=== PATIENT | female | born 1950 | race Caucasian/White ===

== ENCOUNTER → 2019-11-03 14:19 | Outpatient (CLI) | payer MEDICARE, SELFPAY ==
[2019-11-03 13:40] VITALS: BMI 27.6
[2019-11-03 15:57] LABS: T4 Free Direct 1.19 ng/dL (0.76-1.46); Thyroid Stim Hormone (TSH) 1.94 uIU/mL (0.358-3.74)
== END ==
PROVIDERS: PCP Internal Medicine; Referring Provider Nurse Practitioner Family; Visit Provider Nurse Practitioner Family
DX: E03.9 Hypothyroidism, unspecified (principal)
CPT/HCPCS: 36415; 84439; 84443

== ENCOUNTER → 2020-07-26 16:19 | Outpatient (CLI) | payer MEDICARE, SELFPAY ==
[2020-07-26 14:59] VITALS: BMI 27.4
[2020-07-26 17:03] LABS: Absolute Lymphocyte Count 1.63 X10^3/uL (0.83-4.51); Absolute Neutrophil Count 3.5 X10^3/uL (2.0-7.7); Basophil# 0.02 X10^3/uL; Basophil% 0.3 % (0-1); Eosinophils% 1.7 % (0-5); Hematocrit 43.3 % (37-47); Hemoglobin 13.5 g/dL (12.0-15.0); Lymphocyte # 1.63 X10^3/ul (4.0); Lymphocyte % 28.4 % (19-41); Mean Corp Hgb Conc 31.2 g/dL (32-36); Mean Corpuscular Hgb 27.7 pg (27.0-32.0); Mean Corpuscular Volume 88.7 fL (81-99); Mean Platelet Vol. 9.7 fl (6.2-12.0); Monocyte# 0.45 X10^3/uL; Monocyte% 7.9 % (0-10); NRBC Flagged by Analyzer 0 % (0-5); Neutrophil # 3.52 X10^3/uL (2.7-7.7); Neutrophil % 61.5 % (47-70); Platelet Count 303 K/mm3 (150-450); RBC Distribution Width CV 13.2 % (11.6-14.6); RBC Distribution Width SD 43.4 fl (35.1-43.9); Red Blood Count 4.88 M/mm3 (4.2-5.4); White Blood Count 5.7 K/mm3 (4.4-11.0)
[2020-07-26 18:13] LABS: Vitamin D,25 Hydroxy 20.4 ng/mL
[2020-07-26 18:21] LABS: AST(SGOT) 19 U/L (15-37); Alanine Aminotransfer ALT/SGPT 21 U/L (13-56); Albumin, Serum 3.9 g/dL (3.2-5.0); Alkaline Phosphatase 104 U/L (45-117); Anion Gap 6 (5-15); BUN 28 mg/dL (7-18); BUN/Creat Ratio 34.1 RATIO (10-20); Calcium,Total 9.6 mg/dL (8.5-10.1); Chloride 104 mmol/L (98-107); Creatinine, Serum 0.82 mg/dL (0.55-1.02); EST Glomerular Filtration Rate 73 mL/min (>60); Est Glom Filt Rate - Afr Amer 89 mL/min (>60); Globulin 4.1 g/dL (2.2-4.2); Glucose 84 mg/dL (74-106); Sodium Level 138 mmol/L (136-145); Thyroid Stim Hormone (TSH) 5.45 uIU/mL (0.358-3.74)
== END ==
PROVIDERS: PCP Internal Medicine; Referring Provider Internal Medicine; Visit Provider Internal Medicine
DX: E03.9 Hypothyroidism, unspecified (principal); K31.84 Gastroparesis; E55.9 Vitamin D deficiency, unspecified; Z85.060 Personal history of malignant carcinoid tumor of small intestine
CPT/HCPCS: 36415; 80053; 82306; 84439; 84443; 84481; 85025

== ENCOUNTER → 2021-01-30 08:01 | Outpatient (CLI) | payer MEDICARE, SELFPAY ==
[2021-01-30 12:41] LABS: Free T3 2.5 pg/mL (2.18-3.98); T4 Free Direct 1.29 ng/dL (0.76-1.46); Thyroid Stim Hormone (TSH) 3.32 uIU/mL (0.358-3.74)
== END ==
PROVIDERS: PCP Internal Medicine; Referring Provider Internal Medicine; Visit Provider Internal Medicine
DX: E03.9 Hypothyroidism, unspecified (principal); E55.9 Vitamin D deficiency, unspecified
CPT/HCPCS: 36415; 82306; 84439; 84443; 84481

== ENCOUNTER → 2021-12-07 | Outpatient (CLI) | payer MEDICARE, SELFPAY ==
[2021-12-07 17:06] LABS: Free T3 2.8 pg/mL (2.18-3.98); T4 Free Direct 1.37 ng/dL (0.76-1.46); Thyroid Stim Hormone (TSH) 0.53 uIU/mL (0.358-3.74)
== END | disposition home or self-care (01) ==
LOC: BIMLAB 14:54
PROVIDERS: PCP Internal Medicine; Referring Provider Internal Medicine; Visit Provider Internal Medicine
DX: E03.9 Hypothyroidism, unspecified (principal)
CPT/HCPCS: 36415; 84439; 84443; 84481

== ENCOUNTER → 2022-05-16 | Outpatient (CLI) | payer MEDICARE, SELFPAY ==
[2022-05-16 16:30] LABS: Absolute Lymphocyte Count 1.89 X10^3/uL (0.83-4.51); Basophil# 0.02 X10^3/uL; Basophil% 0.4 % (0-1); Eosinophil# 0.12 X10^3/uL; Eosinophils% 2.2 % (0-5); Hemoglobin 13.1 g/dL (12.0-15.0); Lymphocyte # 1.89 X10^3/ul (0.83-4.51); Lymphocyte % 34.7 % (19-41); Mean Corp Hgb Conc 31.2 g/dL (32-36); Mean Corpuscular Volume 89.7 fL (81-99); Monocyte# 0.43 X10^3/uL; Monocyte% 7.9 % (0-10); NRBC Flagged by Analyzer 0 % (0-5); Neutrophil # 2.97 X10^3/uL (2.7-7.7); Neutrophil % 54.6 % (47-70); Platelet Count 242 K/mm3 (150-450); RBC Distribution Width CV 12.8 % (11.6-14.6); RBC Distribution Width SD 42.2 fl (35.1-43.9); Red Blood Count 4.68 M/mm3 (4.2-5.4); White Blood Count 5.4 K/mm3 (4.4-11.0)
[2022-05-16 17:07] LABS: Vitamin D,25 Hydroxy 38.4 ng/mL
[2022-05-16 17:12] LABS: ALB/GLOB Ratio 0.9 RATIO (0.9-2.4); AST(SGOT) 14 U/L (15-37); Alanine Aminotransfer ALT/SGPT 18 U/L (13-56); Albumin, Serum 3.7 g/dL (3.2-5.0); Alkaline Phosphatase 88 U/L (45-117); Anion Gap 7 (5-15); BUN 12 mg/dL (7-18); BUN/Creat Ratio 12.3 RATIO (10-20); Calcium,Total 9.3 mg/dL (8.5-10.1); Chloride 106 mmol/L (98-107); Creatinine, Serum 0.98 mg/dL (0.55-1.02); EST Glomerular Filtration Rate 60 mL/min (>60); Est Glom Filt Rate - Afr Amer 72 mL/min (>60); Free T3 2.5 pg/mL (2.18-3.98); Globulin 3.9 g/dL (2.2-4.2); Glucose 92 mg/dL (74-106); Protein, Total 7.6 g/dL (6.4-8.2); Sodium Level 142 mmol/L (136-145); T4 Free Direct 1.51 ng/dL (0.76-1.46); Thyroid Stim Hormone (TSH) 0.96 uIU/mL (0.358-3.74)
== END | disposition home or self-care (01) ==
PROVIDERS: PCP Internal Medicine; Visit Provider Internal Medicine
DX: E55.9 Vitamin D deficiency, unspecified (principal); E03.9 Hypothyroidism, unspecified; K31.84 Gastroparesis
CPT/HCPCS: 36415; 80053; 82306; 84439; 84443; 84481; 85025

== ENCOUNTER 2022-10-31 20:22 | Emergency (ER) | payer MEDICARE, SELFPAY ==
[2022-10-31 20:23] VITALS: BP 108/85; PULSE 85; RESP 18; TEMP 36.6; O2SAT 100; BMI 23.9
--- NOTE | 2022-10-31 20:42 | EDS_ITS ---
HPI History of Present Illness Chief Complaint: Nausea/Vomiting Informant: patient and spouse/S.O. Onset/Context/Timing Onset: Today Narrative Narrative: Is with nausea and vomiting along with diarrhea. She has a history of gastroparesis and states every 10 to 20 days she will have episodes of vomiting and diarrhea. She has Phenergan and Zofran at home but those did not seem to help today. She presents with nearly 18 hours of symptoms. Patient denies significant abdominal pain. She has no fever or chills. [facility] Medical History (Updated 10/31/22 @ 22:[address] Jany Talamantes MD) Carcinoid tumor Gastroparesis Hypothyroidism polypectomy Home Medications levocetirizine 5 mg tablet 5 mg PO Q OTHER DAY 11/03/19 [History Last Taken Unknown] pantoprazole 20 mg tablet,delayed release 20 mg PO TID #90 tabs 11/13/21 [Rx Last Taken Unknown] diphenoxylate-atropine 2.5 mg-0.025 mg tablet 1 tab PO BID PRN diarrhea #20 tabs 05/16/22 [Rx Last Taken Unknown] promethazine 12.5 mg rectal suppository 12.5 mg [place] Q6H PRN nausea and vomiting #12 ea 05/16/22 [Rx Last Taken Unknown] promethazine 25 mg tablet 25 mg PO BID PRN nausea and vomiting #30 tabs 05/16/22 [Rx Last Taken Unknown] levothyroxine 88 mcg tablet 88 mcg PO DAILY #90 tabs 07/02/22 [Rx Last Taken Unknown] cephalexin 500 mg capsule 500 mg PO Q8H #30 caps 10/25/22 [Rx Last Taken Unknown] melatonin 5 mg capsule mg PO 10/25/22 [History Last Taken Unknown] prucalopride 2 mg tablet (Motegrity) 2 mg PO DAILY #90 tabs 10/25/22 [Rx Last Taken Unknown] potassium chloride 40 mEq/15 mL oral liquid 40 meq (15 mL) PO DAILY 3 days #45 mL 10/31/22 [Rx Last Taken Unknown] Allergy/AdvReac Type Severity Reaction Status Date / Time sulfamethoxazole Allergy Mild rash Verified 10/31/22 20:26 [From Bactrim] trimethoprim [From Bactrim] Allergy Mild rash Verified 10/31/22 20:26 aspirin AdvReac Mild nose bleed Verified 10/31/22 20:26 Family History Father Heart disease Myocardial infarction Mother CVA (cerebral vascular accident) Thyroid disorder Cancer Asthma Breast cancer Sister Cancer Surgical History H/O: hysterectomy Social History Smoking Status: Never smoker alcohol intake: never substance use type: does not use ROS ROS ED Constitutional Constitutional ED: Denies chills or fever(s) Eyes Eyes: Denies change in vision or discharge from eye(s) ENT ENT ED: Denies discharge from eye(s), rhinorrhea or sore throat Cardiovascular Cardiovascular: Denies chest pain or palpitations Respiratory/Chest Respiratory/Chest: Denies cough or dyspnea Gastrointestinal Gastrointestinal: Reports diarrhea, nausea and vomiting; Denies abdominal pain Genitourinary Genitourinary ED: Denies dysuria Musculoskeletal Musculoskeletal: Denies back pain or extremity pain Integumentary Denies Abrasions or rash Neurologic Neurologic: Denies headache(s) or weakness Psychiatric Psychiatric: Denies anxiety or depression Endocrine Endocrinology: Denies polydipsia or polyuria Allergic/Immunologic Allergic/Immunologic ED: Denies lip swelling or urticaria EXAM Physical Exam Const Vital Signs: 10/31/22 20:23 Temperature 97.9 F Temperature Source Temporal Pulse Rate 85 Respiratory Rate 18 Blood Pressure 108/85 H Blood Pressure Mean 92 Pulse Ox 100 Oxygen Delivery Method Room Air Positive well nourished and well developed General Appearance ED: well developed HEENT Reports normocephalic and head/scalp atraumatic Eyes PERRL and EOMs intact bilaterally Neck supple Chest Wall inspection of chest normal and palpation of chest normal Resp normal respiratory effort and clear to auscultation bilaterally Cardio regular rate and regular rhythm GI non-tender Auscultation: hypoactive bowel sounds Palpation: soft Extremity normal to inspection Neuro oriented x3 and no sensory deficits noted Sensorium / Orientation: alert Motor Exam: strength 5/5 throughout Psych mental status grossly normal Skin no rashes or lesions noted MDM MDM MDM Narrative Medical decision making narrative: Patient ordered a liter IV fluids and with IV Zofran. Labwork obtained to evaluate for leukocytosis, anemia, and electrolyte derangement. Urinalysis obtained to evaluate for infection/hematuria. History & Record Review Discussion w/independent historian: Patient and Significant other Additional record(s) reviewed:: Prior outpatient record and Prior labs Lab Data Attestation: I reviewed the patient's lab results. Labs: Laboratory Results - last 24 hr 10/31/22 21:03 WBC 8.2 RBC 5.31 Hgb 15.1 H Hct 46.0 MCV 86.6 MCH 28.4 MCHC 32.8 RDW Std Deviation 40.1 RDW Coeff of Dannie 12.8 Plt Count 254 MPV 10.3 Immature Gran % (Auto) 0.400 Neut % (Auto) 84.7 H Lymph % (Auto) 8.9 L [place] % (Auto) 5.4 Eos % (Auto) 0.2 Baso % (Auto) 0.4 Absolute Neuts (auto) 7.0 Absolute Lymphs (auto) 0.73 L Nucleated RBC % 0 Sodium 139 Potassium 2.9 L Chloride 97 L Carbon Dioxide 32.0 Anion Gap 10 BUN 23 H Creatinine 1.79 H Estim Creat Clear Calc 23.85 Est GFR (MDRD) Af Amer 36 L Est GFR (MDRD) Non-Af 30 L BUN/Creatinine Ratio 12.8 Glucose 176 H Calcium 9.8 Total Bilirubin 0.60 Direct Bilirubin 0.11 AST 17 ALT 23 Alkaline Phosphatase 77 Total Protein 8.5 H Albumin 4.2 Globulin 4.3 H Treatment and Re-Evaluation :: CBC was normal white count 8.2. Hemoglobin is concentrated at 15.1. Chemistry studies significant for low potassium at 2.9. Chloride is 97. BUN is 23 and creatinine is 1.79. Glucose is 176. LFTs are unremarkable. After 1 L of IV fluid patient is feeling improved. Her nausea is well controlled. Given her bump in creatinine she will be given a second liter of IV fluid. I will also give her oral potassium liquid for her hypokalemia. She is just provided a urine sample. This will be checked by oncoming physician. Plan will be discharged to home after second liter of IV fluid. Return instructions are given. Discharge Plan Triage Chief Complaint: Nausea/Vomiting ED Provider: Jany Talamantes Dx/Rx/DC Orders Clinical Impression: Gastroparesis, Vomiting, Dehydration, Hypokalemia Instructions: ED Dehydration (Adult), ED Hypokalemia, ED Vomiting (Adult) Prescriptions: New potassium chloride 40 mEq/15 mL liquid 40 meq PO DAILY 3 Days Qty: 45 0RF No Action levocetirizine 5 mg tablet 5 mg PO Q OTHER DAY diphenoxylate-atropine 2.5-0.025 mg tablet 1 tab PO BID PRN (Reason: diarrhea) Qty: 20 1RF Motegrity 2 mg tablet 2 mg PO DAILY Qty: 90 1RF melatonin 5 mg capsule PO cephalexin 500 mg capsule 500 mg PO Q8H Qty: 30 0RF pantoprazole 20 mg tablet,delayed release (DR/EC) 20 mg PO TID Qty: 90 11RF promethazine 25 mg tablet 25 mg PO BID PRN (Reason: nausea and vomiting) Qty: 30 1RF promethazine 12.5 mg suppository 12.5 mg WV Q6H PRN (Reason: nausea and vomiting) Qty: 12 1RF levothyroxine 88 mcg tablet 88 mcg PO DAILY Qty: 90 3RF Primary Care Provider: Edel Pinto Referrals: Edel Pinto MD [Primary Care Provider] - 1-2 Weeks Disposition Disposition: Home, Self Care
[2022-10-31] MEDS: Ondansetron 4 MG/2 ML Vial IV (21:00)
[2022-10-31] MEDS: 0.9% Normal Saline 1,000 ML 1000 ML IV (21:00)
[2022-10-31 21:22] LABS: Absolute Lymphocyte Count 0.73 X10^3/uL (0.83-4.51); Basophil# 0.03 X10^3/uL; Basophil% 0.4 % (0-1); Eosinophil# 0.02 X10^3/uL; Eosinophils% 0.2 % (0-5); Hemoglobin 15.1 g/dL (12.0-15.0); Lymphocyte # 0.73 X10^3/ul (0.83-4.51); Lymphocyte % 8.9 % (19-41); Mean Corp Hgb Conc 32.8 g/dL (32-36); Mean Corpuscular Hgb 28.4 pg (27.0-32.0); Mean Corpuscular Volume 86.6 fL (81-99); Mean Platelet Vol. 10.3 fl (6.2-12.0); Monocyte# 0.44 X10^3/uL; Monocyte% 5.4 % (0-10); NRBC Flagged by Analyzer 0 % (0-5); Neutrophil # 6.96 X10^3/uL (2.7-7.7); Neutrophil % 84.7 % (47-70); Platelet Count 254 K/mm3 (150-450); RBC Distribution Width CV 12.8 % (11.6-14.6); RBC Distribution Width SD 40.1 fl (35.1-43.9); Red Blood Count 5.31 M/mm3 (4.2-5.4); White Blood Count 8.2 K/mm3 (4.4-11.0)
[2022-10-31 21:40] LABS: AST(SGOT) 17 U/L (15-37); Alanine Aminotransfer ALT/SGPT 23 U/L (13-56); Albumin, Serum 4.2 g/dL (3.2-5.0); Alkaline Phosphatase 77 U/L (45-117); Anion Gap 10 (5-15); BUN 23 mg/dL (7-18); BUN/Creat Ratio 12.8 RATIO (10-20); Bilirubin, Direct 0.11 mg/dL (0.00-0.30); Calcium,Total 9.8 mg/dL (8.5-10.1); Chloride 97 mmol/L (98-107); Creatinine, Serum 1.79 mg/dL (0.55-1.02); EST Glomerular Filtration Rate 30 mL/min (>60); Est Glom Filt Rate - Afr Amer 36 mL/min (>60); Estimated Creatinine Clearance 23.85 ml/min; Globulin 4.3 g/dL (2.2-4.2); Glucose 176 mg/dL (74-106); Potassium 2.9 mmol/L (3.5-5.1); Protein, Total 8.5 g/dL (6.4-8.2); Sodium Level 139 mmol/L (136-145)
[2022-10-31] MEDS: Potassium Chloride Oral Soln 20 MEQ/15 ML UDC 40 MEQ PO (22:16)
[2022-10-31 22:41] LABS: Mucous, Urine 0 SEEN /hpf (<or=2+); Squamous Epithelial Cells - UA 0 SEEN /hpf (5-10)
[2022-10-31 22:43] LABS: Color, Urine Yellow (Yellow); Glucose, Dipstick 50 mg/dl (Normal); Ketone-Dipstick 5 mg/dl (Negative); Leukocyte Esterase-Dipstick 100 /ul (Negative); Nitrite-Dipstick Negative (Negative); Occult Blood-Urine 10 /ul (Negative); Protein-Dipstick 100 mg/dl (Negative); Urine Clarity Sl. Cloudy (Clear); Urine Urobilinogen 1 mg/dl (Normal)
[2022-10-31 22:44] LABS: Red Blood Cells-Urine 0-5 SEEN /hpf (0-5); Urine Bilirubin Dipstick 1 mg/dL (Negative); White Blood Cells 5-10 SEEN /hpf (0-5)
[2022-10-31 22:45] LABS: Bacteria 1+ /hpf (None Seen); Hyaline Cast 10-25 SEEN /lpf (0-5)
[2022-10-31] MEDS: 0.9% Normal Saline 1,000 ML 999 ML IV (22:56)
[2022-10-31 23:36] VITALS: RESP 16
[2022-11-01 00:53] VITALS: BP 128/74; PULSE 70; RESP 18; O2SAT 97
== END 2022-11-01 00:56 | disposition home or self-care (01) ==
PROVIDERS: Emergency Provider Emergency Medicine; PCP Internal Medicine; Visit Provider Emergency Medicine
DX: K31.84 Gastroparesis (principal); R11.2 Nausea with vomiting, unspecified; E86.0 Dehydration; E87.6 Hypokalemia; R82.81 Pyuria
CPT/HCPCS: 80048; 80076; 81001; 85025; 87086; 87088; 96361; 96374; 99283; J7030; A4216; J2405

== ENCOUNTER 2022-11-10 05:31 | Emergency (ER) | payer MEDICARE, SELFPAY ==
[2022-11-10 05:32] VITALS: BP 139/100; PULSE 94; RESP 20; TEMP 36.3; O2SAT 98; BMI 25.2
--- NOTE | 2022-11-10 05:42 | ED.VIS.GI ---
HPI HPI - GI History of Present Illness Chief Complaint: Nausea/Vomiting Informant: patient and spouse/S.O. Narrative Narrative: Patient feels like she is having another vomiting episode due to gastroparesis. She has episodes like this every couple weeks chronically. This 1 has been for 2 or 3 days, having trouble keeping any fluids down at all. She has chronic diarrhea that is no different. No blood in the emesis or the diarrhea. Vomiting up basically clear fluid nonbilious. No coffee-ground emesis. No melena. No fevers or chills. She has Phenergan suppositories at home that she has been trying to use but not helping. She feels lightheaded like she is dehydrated and having muscle cramping in her legs. [facility] Medical History (Updated 11/10/22 @ 06:[address] Ferny Jett MD) Carcinoid tumor Gastroparesis Hypothyroidism polypectomy Home Medications levocetirizine 5 mg tablet 5 mg PO Q OTHER DAY 11/03/19 [History Last Taken Unknown] pantoprazole 20 mg tablet,delayed release 20 mg PO TID #90 tabs 11/13/21 [Rx Last Taken Unknown] diphenoxylate-atropine 2.5 mg-0.025 mg tablet 1 tab PO BID PRN diarrhea #20 tabs 05/16/22 [Rx Last Taken Unknown] promethazine 12.5 mg rectal suppository 12.5 mg [place] Q6H PRN nausea and vomiting #12 ea 05/16/22 [Rx Last Taken Unknown] promethazine 25 mg tablet 25 mg PO BID PRN nausea and vomiting #30 tabs 05/16/22 [Rx Last Taken Unknown] levothyroxine 88 mcg tablet 88 mcg PO DAILY #90 tabs 07/02/22 [Rx Last Taken Unknown] cephalexin 500 mg capsule 500 mg PO Q8H #30 caps 10/25/22 [Rx Last Taken Unknown] melatonin 5 mg capsule mg PO 10/25/22 [History Last Taken Unknown] prucalopride 2 mg tablet (Motegrity) 2 mg PO DAILY #90 tabs 10/25/22 [Rx Last Taken Unknown] potassium chloride 40 mEq/15 mL oral liquid 40 meq (15 mL) PO DAILY 3 days #45 mL 10/31/22 [Rx Last Taken Unknown] metoclopramide HCl 10 mg tablet 10 mg PO Q6H PRN nausea and vomiting #20 tabs 11/10/22 [Rx Last Taken Unknown] Allergy/AdvReac Type Severity Reaction Status Date / Time Sulfa (Sulfonamide Allergy Mild Rash Verified 11/10/22 05:36 Antibiotics) sulfamethoxazole Allergy Mild rash Verified 11/10/22 05:36 [From Bactrim] trimethoprim [From Bactrim] Allergy Mild rash Verified 11/10/22 05:36 aspirin AdvReac Mild nose bleed Verified 11/10/22 05:36 Family History Father Heart disease Myocardial infarction Mother CVA (cerebral vascular accident) Thyroid disorder Cancer Asthma Breast cancer Sister Cancer Surgical History H/O: hysterectomy Social History Smoking Status: Never smoker alcohol intake: never substance use type: does not use ROS ROS ED Constitutional Constitutional ED: Denies chills or fever(s) Eyes Eyes: Denies change in vision or diplopia ENT ENT ED: Denies rhinorrhea or sore throat Cardiovascular Cardiovascular: Reports lightheadedness; Denies chest pain, palpitations or syncope Respiratory/Chest Respiratory/Chest: Denies cough or dyspnea Gastrointestinal Gastrointestinal: Reports diarrhea, nausea and vomiting; Denies abdominal pain, hematemesis, hematochezia or melena Genitourinary Genitourinary ED: Denies dysuria or hematuria Musculoskeletal Musculoskeletal: Reports other Details: leg cramping ; Denies back pain or neck pain Integumentary Denies abscess or rash Neurologic Neurologic: Denies headache(s), paresthesias or weakness Psychiatric Psychiatric: Denies anxiety or suicidal thoughts EXAM Physical Exam Const Vital Signs: 11/10/22 05:32 Temperature 97.3 F L Temperature Source Axillary Pulse Rate 94 Respiratory Rate 20 H Blood Pressure 139/100 H Blood Pressure Mean 113 Pulse Ox 98 Oxygen Delivery Method Room Air Positive well nourished and well developed General Appearance ED: well developed and NAD HEENT Reports moist mucous membranes normocephalic and atraumatic Eyes PERRL and EOMs intact bilaterally Neck full ROM and supple Resp normal respiratory effort and clear to auscultation bilaterally Cardio regular rate, regular rhythm and no murmurs Rate: Negative for tachycardic GI non-tender and non-distended GI Narrative: Limited exam due to actively vomiting Auscultation: normoactive bowel sounds Palpation: soft Back/Spine no CVA tenderness General Back: other FROM Extremity normal to inspection General Extremety ED: Negative for edema, pulses abnormal or tenderness General Extremity: Negative for edema or pulses abnormal Neuro oriented x3, CN's II-XII intact bilaterally and no sensory deficits noted Sensorium / Orientation: awake and alert Motor Exam: strength 5/5 throughout Skin no rashes or lesions noted and no wounds MDM MDM MDM Narrative Medical decision making narrative: Patient was given 2 L of IV fluids, 5 mg Reglan. She is feeling much better on reevaluation, she is admittedly states that sometimes even though she is feeling much better she will then go and start vomiting more later. I can redose her with more Reglan if she needs while she is here, but for now she is doing very well and having no abdominal symptoms. Plan is to discharge her with a prescription for Reglan to use as needed. She was using sublingual Zofran's at home and they were not helping, and she was having trouble keeping in the Phenergan suppositories due to the diarrhea. She states the diarrhea is chronic for her. I do not think she needs advanced imaging of her abdomen/pelvis right now. Creatinine is 1.73, it was a little higher than this earlier in the month, her calcium is slightly elevated, I think this is nonspecific and does not necessarily indicate a recurrence of her cancer but she should follow-up for reevaluation and may be repeat labs some point in near future. Lab Data Attestation: I reviewed the patient's lab results. Labs: Laboratory Results - last 24 hr 11/10/22 05:50 WBC 9.7 RBC 5.43 H Hgb 15.7 H Hct 47.4 H MCV 87.3 MCH 28.9 MCHC 33.1 RDW Std Deviation 40.6 RDW Coeff of Dannie 12.9 Plt Count 330 MPV 9.9 Immature Gran % (Auto) 0.400 Neut % (Auto) 81.2 H Lymph % (Auto) 10.8 L [place] % (Auto) 6.8 Eos % (Auto) 0.4 Baso % (Auto) 0.4 Absolute Neuts (auto) 7.9 H Absolute Lymphs (auto) 1.05 Nucleated RBC % 0 Sodium 139 Potassium 4.0 Chloride 101 Carbon Dioxide 26.0 Anion Gap 12 BUN 17 Creatinine 1.73 H Estim Creat Clear Calc 24.67 Est GFR (MDRD) Af Amer 37 L Est GFR (MDRD) Non-Af 31 L BUN/Creatinine Ratio 9.8 L Glucose 156 H Calcium 10.5 H Total Bilirubin 0.40 AST 20 ALT 21 Alkaline Phosphatase 91 Total Protein 9.2 H Albumin 4.6 Globulin 4.6 H Albumin/Globulin Ratio 1.0 Discharge Plan Triage Chief Complaint: Nausea/Vomiting ED Provider: Ferny Jett Dx/Rx/DC Orders Clinical Impression: Nausea vomiting and diarrhea, Gastroparesis Instructions: Gastroparesis, ED Vomiting and Diarrhea ... Prescriptions: New metoclopramide HCl [metoclopramide HCl] 10 mg tablet 10 mg PO Q6H PRN (Reason: nausea and vomiting) Qty: 20 0RF No Action levocetirizine 5 mg tablet 5 mg PO Q OTHER DAY diphenoxylate-atropine 2.5-0.025 mg tablet 1 tab PO BID PRN (Reason: diarrhea) Qty: 20 1RF Motegrity 2 mg tablet 2 mg PO DAILY Qty: 90 1RF melatonin 5 mg capsule PO cephalexin 500 mg capsule 500 mg PO Q8H Qty: 30 0RF potassium chloride 40 mEq/15 mL liquid 40 meq PO DAILY 3 Days Qty: 45 0RF pantoprazole 20 mg tablet,delayed release (DR/EC) 20 mg PO TID Qty: 90 11RF promethazine 25 mg tablet 25 mg PO BID PRN (Reason: nausea and vomiting) Qty: 30 1RF promethazine 12.5 mg suppository 12.5 mg [place] Q6H PRN (Reason: nausea and vomiting) Qty: 12 1RF levothyroxine 88 mcg tablet 88 mcg PO DAILY Qty: 90 3RF Primary Care Provider: Edel Pinto Referrals: Edel Pinto MD [Primary Care Provider] - 3-5 Days Activity Restrictions/Additional Instructions: Okay to take metoclopramide with Zofran, but do not take simultaneous with promethazine/Phenergan; basically, either Phenergan or metoclopramide/Reglan. Disposition Disposition: Home, Self Care
[2022-11-10] MEDS: 0.9% Normal Saline 1,000 ML 2000 ML IV (05:53)
[2022-11-10] MEDS: Metoclopramide 10 MG/2 ML Vial 5 MG IV (05:53)
[2022-11-10 05:55] LABS: Absolute Lymphocyte Count 1.05 X10^3/uL (0.83-4.51); Absolute Neutrophil Count 7.9 X10^3/uL (2.0-7.7); Basophil# 0.04 X10^3/uL; Basophil% 0.4 % (0-1); Eosinophil# 0.04 X10^3/uL; Eosinophils% 0.4 % (0-5); Hematocrit 47.4 % (37-47); Hemoglobin 15.7 g/dL (12.0-15.0); Lymphocyte # 1.05 X10^3/ul (0.83-4.51); Lymphocyte % 10.8 % (19-41); Mean Corp Hgb Conc 33.1 g/dL (32-36); Mean Corpuscular Hgb 28.9 pg (27.0-32.0); Mean Corpuscular Volume 87.3 fL (81-99); Mean Platelet Vol. 9.9 fl (6.2-12.0); Monocyte# 0.66 X10^3/uL; Monocyte% 6.8 % (0-10); NRBC Flagged by Analyzer 0 % (0-5); Neutrophil # 7.91 X10^3/uL (2.7-7.7); Neutrophil % 81.2 % (47-70); Platelet Count 330 K/mm3 (150-450); RBC Distribution Width CV 12.9 % (11.6-14.6); RBC Distribution Width SD 40.6 fl (35.1-43.9); Red Blood Count 5.43 M/mm3 (4.2-5.4); White Blood Count 9.7 K/mm3 (4.4-11.0)
[2022-11-10 06:20] LABS: AST(SGOT) 20 U/L (15-37); Alanine Aminotransfer ALT/SGPT 21 U/L (13-56); Albumin, Serum 4.6 g/dL (3.2-5.0); Alkaline Phosphatase 91 U/L (45-117); Anion Gap 12 (5-15); BUN 17 mg/dL (7-18); BUN/Creat Ratio 9.8 RATIO (10-20); Calcium,Total 10.5 mg/dL (8.5-10.1); Chloride 101 mmol/L (98-107); Creatinine, Serum 1.73 mg/dL (0.55-1.02); EST Glomerular Filtration Rate 31 mL/min (>60); Est Glom Filt Rate - Afr Amer 37 mL/min (>60); Estimated Creatinine Clearance 24.67 ml/min; Globulin 4.6 g/dL (2.2-4.2); Glucose 156 mg/dL (74-106); Protein, Total 9.2 g/dL (6.4-8.2); Sodium Level 139 mmol/L (136-145)
== END 2022-11-10 07:18 | disposition home or self-care (01) ==
PROVIDERS: Emergency Provider Emergency Medicine; PCP Internal Medicine; Visit Provider Emergency Medicine
DX: K31.84 Gastroparesis (principal); E03.9 Hypothyroidism, unspecified; Z79.899 Other long term (current) drug therapy
CPT/HCPCS: 80053; 85025; 96361; 96374; 99283

== ENCOUNTER → 2022-11-14 | Outpatient (CLI) | payer MEDICARE, SELFPAY ==
[2022-11-14 15:23] LABS: Absolute Neutrophil Count 3.6 X10^3/uL (2.0-7.7); Basophil# 0.03 X10^3/uL; Basophil% 0.5 % (0-1); Eosinophil# 0.09 X10^3/uL; Eosinophils% 1.6 % (0-5); Hematocrit 42.7 % (37-47); Hemoglobin 13.7 g/dL (12.0-15.0); Lymphocyte % 27.7 % (19-41); Mean Corp Hgb Conc 32.1 g/dL (32-36); Mean Corpuscular Hgb 28.9 pg (27.0-32.0); Mean Corpuscular Volume 90.1 fL (81-99); Mean Platelet Vol. 10.1 fl (6.2-12.0); Monocyte# 0.46 X10^3/uL; NRBC Flagged by Analyzer 0 % (0-5); Neutrophil # 3.58 X10^3/uL (2.7-7.7); Neutrophil % 61.9 % (47-70); Platelet Count 263 K/mm3 (150-450); RBC Distribution Width CV 12.5 % (11.6-14.6); RBC Distribution Width SD 41.5 fl (35.1-43.9); Red Blood Count 4.74 M/mm3 (4.2-5.4); White Blood Count 5.8 K/mm3 (4.4-11.0)
[2022-11-14 15:44] LABS: Vitamin B12 354 pg/mL (211-911); Vitamin D,25 Hydroxy 40.7 ng/mL
[2022-11-14 15:51] LABS: ALB/GLOB Ratio 0.9 RATIO (0.9-2.4); AST(SGOT) 16 U/L (15-37); Alanine Aminotransfer ALT/SGPT 18 U/L (13-56); Albumin, Serum 3.7 g/dL (3.2-5.0); Alkaline Phosphatase 82 U/L (45-117); Anion Gap 5 (5-15); BUN 15 mg/dL (7-18); BUN/Creat Ratio 14.2 RATIO (10-20); Calcium,Total 9.3 mg/dL (8.5-10.1); Chloride 105 mmol/L (98-107); Cholesterol 293 mg/dL (200); Creatinine, Serum 1.06 mg/dL (0.55-1.02); EST Glomerular Filtration Rate 54 mL/min (>60); Est Glom Filt Rate - Afr Amer 66 mL/min (>60); Free T3 2.4 pg/mL (2.18-3.98); Glucose 99 mg/dL (74-106); High Density Lipoprotein 60 mg/dL; Lipase 52 U/L (13-75); Potassium 4.8 mmol/L (3.5-5.1); Protein, Total 7.7 g/dL (6.4-8.2); Sodium Level 137 mmol/L (136-145); T4 Free Direct 1.39 ng/dL (0.76-1.46); Thyroid Stim Hormone (TSH) 1.04 uIU/mL (0.358-3.74); Triglycerides 135 mg/dL; Very Low Density Lipoprotein 27 mg/dL (5-40)
== END | disposition home or self-care (01) ==
LOC: LAB 14:39
PROVIDERS: PCP Internal Medicine; Referring Provider Internal Medicine; Visit Provider Internal Medicine
DX: Z13.220 Encounter for screening for lipoid disorders (principal); K31.84 Gastroparesis; E03.9 Hypothyroidism, unspecified; Z85.060 Personal history of malignant carcinoid tumor of small intestine; E55.9 Vitamin D deficiency, unspecified; E53.8 Deficiency of other specified B group vitamins; R74.8 Abnormal levels of other serum enzymes; R19.7 Diarrhea, unspecified
CPT/HCPCS: 36415; 80053; 80061; 82306; 82607; 83690; 84439; 84443; 84481; 85025

== ENCOUNTER 2022-12-18 17:20 | Emergency (ER) | payer MEDICARE, SELFPAY ==
[2022-12-18 17:21] VITALS: BP 96/68; PULSE 74; RESP 14; TEMP 36.8; O2SAT 99; BMI 24.9
--- NOTE | 2022-12-18 18:40 | EDS_ITS ---
HPI HPI - GI History of Present Illness Chief Complaint: Nausea/Vomiting/Diarrhea Narrative Narrative: 72-year-old female presenting with diarrhea. She has a history of gastroparesis. 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 She does have history of hysterectomy and diverticulitis. Patient presenting with diarrhea and abdominal pain. She was told by her GI doctor from [facility] that is soon as she gets diarrhea and abdominal pain she should come to the ER for an x-ray of her abdomen. She states he wants this to look for an obstruction. Patient has had several days of diarrhea. She does have this chronically but states that last month it was much better. She has not had fever or chills. She is vomiting. [facility] Medical History Carcinoid tumor Gastroparesis Hypothyroidism polypectomy Home Medications levocetirizine 5 mg tablet 5 mg PO Q OTHER DAY 11/03/19 [History Last Taken Unknown] diphenoxylate-atropine 2.5 mg-0.025 mg tablet 1 tab PO BID PRN diarrhea #20 tabs 05/16/22 [Rx Last Taken Unknown] promethazine 12.5 mg rectal suppository 12.5 mg [place] Q6H PRN nausea and vomiting #12 ea 05/16/22 [Rx Last Taken Unknown] promethazine 25 mg tablet 25 mg PO BID PRN nausea and vomiting #30 tabs 05/16/22 [Rx Last Taken Unknown] levothyroxine 88 mcg tablet 88 mcg PO DAILY #90 tabs 07/02/22 [Rx Last Taken Unknown] melatonin 5 mg capsule mg PO 10/25/22 [History Last Taken Unknown] prucalopride 2 mg tablet (Motegrity) 2 mg PO DAILY #90 tabs 10/25/22 [Rx Last Taken Unknown] metoclopramide HCl 10 mg tablet 10 mg PO Q6H PRN nausea and vomiting #20 tabs 11/10/22 [Rx Last Taken Unknown] pantoprazole 20 mg tablet,delayed release 20 mg PO TID #90 tabs 11/14/22 [Rx Last Taken Unknown] Allergy/AdvReac Type Severity Reaction Status Date / Time Sulfa (Sulfonamide Allergy Mild Rash Verified 12/18/22 17:21 Antibiotics) sulfamethoxazole Allergy Mild rash Verified 09/05/23 17:21 [From Bactrim] trimethoprim [From Bactrim] Allergy Mild rash Verified 12/18/22 17:21 aspirin AdvReac Mild nose bleed Verified 12/18/22 17:21 Family History Father Heart disease Myocardial infarction Mother CVA (cerebral vascular accident) Thyroid disorder Cancer Asthma Breast cancer Sister Cancer Surgical History H/O: hysterectomy Social History Smoking Status: Never smoker alcohol intake: never substance use type: does not use ROS ROS ED Constitutional Constitutional ED: Denies chills, fever(s) or sweats Eyes Eyes: Denies blurry vision or change in vision ENT ENT ED: Denies ear pain or sore throat Cardiovascular Cardiovascular: Denies chest pain, palpitations or racing heartbeat Respiratory/Chest Respiratory/Chest: Denies cough, dyspnea or sputum Gastrointestinal Gastrointestinal: Reports abdominal pain, diarrhea, nausea and vomiting; Denies constipation Genitourinary Genitourinary ED: Denies dysuria, hematuria or urinary frequency Musculoskeletal Musculoskeletal: Denies arthralgias, myalgias or neck pain Integumentary Denies abscess, Abrasions or rash Neurologic Neurologic: Denies headache(s), paresthesias or weakness Psychiatric Psychiatric: Denies anxiety, depression, suicidal ideation or suicidal thoughts Endocrine Endocrinology: Denies polydipsia or polyuria EXAM Physical Exam Const Vital Signs: 12/18/22 17:21 Temperature 98.2 F Temperature Source Temporal Pulse Rate 74 Respiratory Rate 14 Blood Pressure 96/68 Blood Pressure Mean 77 Pulse Ox 99 Oxygen Delivery Method Room Air Positive well nourished General Appearance ED: NAD; Negative for pallor HEENT Reports moist mucous membranes normocephalic and atraumatic Eyes PERRL Resp normal respiratory effort Cardio regular rate and regular rhythm GI non-tender and non-distended Neuro CN's II-XII intact bilaterally and moves all extremities Sensorium / Orientation: alert Psych mental status grossly normal Skin no wounds General Skin Exam: Negative for jaundice or pallor MDM MDM MDM Narrative Medical decision making narrative: 72-year-old female presenting with diarrhea. This is a chronic issue. She was told to come get evaluated with an x-ray should this happen. She does not have any systemic signs or symptoms such as fevers or chills. Differential includes colitis, enteritis, diverticulitis, viral syndrome. CBC was obtained to assess white blood cell count, hemoglobin, platelets. These were all normal. Creatinine is slightly elevated at 1.19 but electrolytes are normal. LFTs are normal. Lipase slightly elevated to 28. CT of the abdomen pelvis with IV contrast shows nonspecific enteritis. At this point I feel the patient stable for discharge. She states she has Reglan and Zofran at home for nausea. I recommend she hydrate well. Return precautions discussed. Impression: 1. Gastroenteritis Lab Data Labs: Laboratory Results - last 24 hr 12/18/22 19:00 WBC 8.7 RBC 5.27 Hgb 15.1 H Hct 46.4 MCV 88.0 MCH 28.7 MCHC 32.5 RDW Std Deviation 40.1 RDW Coeff of Dannie 12.5 Plt Count 299 MPV 9.6 Immature Gran % (Auto) 0.500 Neut % (Auto) 78.5 H Lymph % (Auto) 13.8 L [place] % (Auto) 5.9 Eos % (Auto) 0.8 Baso % (Auto) 0.5 Absolute Neuts (auto) 6.8 Absolute Lymphs (auto) 1.20 Nucleated RBC % 0 Sodium 137 Potassium 3.6 Chloride 102 Carbon Dioxide 25.0 Anion Gap 10 BUN 19 H Creatinine 1.19 H Estim Creat Clear Calc 35.87 Est GFR (MDRD) Af Amer 57 L Est GFR (MDRD) Non-Af 47 L BUN/Creatinine Ratio 16.0 Glucose 106 Calcium 10.4 H Total Bilirubin 0.50 AST 15 ALT 23 Alkaline Phosphatase 102 Total Protein 9.2 H Albumin 4.6 Globulin 4.6 H Albumin/Globulin Ratio 1.0 Lipase 228 H Radiography Diagnostic Testing: Clinical Impression(s) from Imaging Studies Abdomen/Pelvis CT 12/18/22 20:15 IMPRESSION: Findings consistent with enteritis and diarrheal illness. Electronically Signed: Mike Jc MD at 21:14 EDT , Discharge Plan Triage Chief Complaint: Nausea/Vomiting/Diarrhea Other Complaint: Nausea/Vomiting ED Provider: Jaswant Aly Dx/Rx/DC Orders Prescriptions: No Action levocetirizine 5 mg tablet 5 mg PO Q OTHER DAY diphenoxylate-atropine 2.5-0.025 mg tablet 1 tab PO BID PRN (Reason: diarrhea) Qty: 20 1RF Motegrity 2 mg tablet 2 mg PO DAILY Qty: 90 1RF melatonin 5 mg capsule PO pantoprazole 20 mg tablet,delayed release (DR/EC) 20 mg PO TID Qty: 90 11RF metoclopramide HCl [metoclopramide HCl] 10 mg tablet 10 mg PO Q6H PRN (Reason: nausea and vomiting) Qty: 20 0RF promethazine 25 mg tablet 25 mg PO BID PRN (Reason: nausea and vomiting) Qty: 30 1RF promethazine 12.5 mg suppository 12.5 mg [place] Q6H PRN (Reason: nausea and vomiting) Qty: 12 1RF levothyroxine 88 mcg tablet 88 mcg PO DAILY Qty: 90 3RF Primary Care Provider: Edel Pinto Referrals: Edel Pinto MD [Primary Care Provider] -
[2022-12-18] MEDS: Ondansetron 4 MG/2 ML Vial IV ×2 (18:57→22:07)
[2022-12-18] MEDS: 0.9% Normal Saline 1,000 ML 1000 ML IV (18:58)
[2022-12-18 19:12] LABS: Absolute Neutrophil Count 6.8 X10^3/uL (2.0-7.7); Basophil# 0.04 X10^3/uL; Basophil% 0.5 % (0-1); Eosinophil# 0.07 X10^3/uL; Eosinophils% 0.8 % (0-5); Hematocrit 46.4 % (37-47); Hemoglobin 15.1 g/dL (12.0-15.0); Lymphocyte % 13.8 % (19-41); Mean Corp Hgb Conc 32.5 g/dL (32-36); Mean Corpuscular Hgb 28.7 pg (27.0-32.0); Mean Platelet Vol. 9.6 fl (6.2-12.0); Monocyte# 0.51 X10^3/uL; Monocyte% 5.9 % (0-10); NRBC Flagged by Analyzer 0 % (0-5); Neutrophil # 6.84 X10^3/uL (2.7-7.7); Neutrophil % 78.5 % (47-70); Platelet Count 299 K/mm3 (150-450); RBC Distribution Width CV 12.5 % (11.6-14.6); RBC Distribution Width SD 40.1 fl (35.1-43.9); Red Blood Count 5.27 M/mm3 (4.2-5.4); White Blood Count 8.7 K/mm3 (4.4-11.0)
[2022-12-18 19:29] LABS: AST(SGOT) 15 U/L (15-37); Alanine Aminotransfer ALT/SGPT 23 U/L (13-56); Albumin, Serum 4.6 g/dL (3.2-5.0); Alkaline Phosphatase 102 U/L (45-117); Anion Gap 10 (5-15); BUN 19 mg/dL (7-18); Calcium,Total 10.4 mg/dL (8.5-10.1); Chloride 102 mmol/L (98-107); Creatinine, Serum 1.19 mg/dL (0.55-1.02); EST Glomerular Filtration Rate 47 mL/min (>60); Est Glom Filt Rate - Afr Amer 57 mL/min (>60); Estimated Creatinine Clearance 35.87 ml/min; Globulin 4.6 g/dL (2.2-4.2); Glucose 106 mg/dL (74-106); Lipase 228 U/L (13-75); Potassium 3.6 mmol/L (3.5-5.1); Protein, Total 9.2 g/dL (6.4-8.2); Sodium Level 137 mmol/L (136-145)
--- NOTE | 2022-12-18 20:15 | CT_ITS ---
INDICATION: Abdominal pain with nausea and diarrhea EXAMINATION: CT ABDOMEN AND PELVIS WITH CONTRAST - CT Abdomen And Pelvis W/ Contrast Injection TECHNIQUE: Helically acquired images were obtained of the abdomen and pelvis following IV contrast. A radiation dose optimization technique was used for this scan. IV Contrast dosage and agent: 100 cc Isovue-300 Oral contrast: None. COMPARISON: None. FINDINGS: LOWER CHEST: Lung bases are clear. No cardiomegaly or pericardial effusion. LIVER: Homogeneous. No focal mass. GALLBLADDER AND BILIARY TREE: No calcified gallstones. No gallbladder distension or wall edema. No intra- or extrahepatic biliary ductal dilation. PANCREAS: No focal cystic or solid mass. SPLEEN: Normal size without focal cystic or solid mass. ADRENAL GLANDS: No nodules. KIDNEYS AND URETERS: Normal renal size and position. No hydronephrosis. PERITONEUM: No ascites or free air. BOWEL: No evidence of acute appendicitis. Diffusely increased fluid contents of both large and small bowel with minimal small bowel distention. Fluid present in the rectum. No focal inflammatory change. LYMPH NODES: No enlarged mesenteric or retroperitoneal lymph nodes. VESSELS: Aorta is non-dilated. URINARY BLADDER: Nondistended. REPRODUCTIVE ORGANS: Uterus absent. ABDOMINAL WALL: No discrete abdominal or pelvic wall hernia. BONES: No acute or aggressive abnormality. CT/Abdomen/Pelvis W IV Cont ONLY IMPRESSION: Findings consistent with enteritis and diarrheal illness. Electronically Signed: Mike cJ MD at 21:14 EDT ,
== END 2022-12-18 22:39 | disposition home or self-care (01) ==
PROVIDERS: Emergency Provider Student in an Organized Health Care Education/Training Program; PCP Internal Medicine; Visit Provider Student in an Organized Health Care Education/Training Program
DX: K52.9 Noninfective gastroenteritis and colitis, unspecified (principal)
CPT/HCPCS: 99281; 74177; 80053; 83690; 85025; 96361; 96374; 96376; 99282; J7030; Q9967; A4216; J2405

== ENCOUNTER → 2023-08-08 | Outpatient (CLI) | payer MEDICARE, SELFPAY ==
[2023-08-08 17:03] LABS: Absolute Lymphocyte Count 1.39 X10^3/uL (0.83-4.51); Absolute Neutrophil Count 2.8 X10^3/uL (2.0-7.7); Basophil# 0.03 X10^3/uL; Basophil% 0.6 % (0-1); Eosinophil# 0.09 X10^3/uL; Eosinophils% 1.9 % (0-5); Hematocrit 39.8 % (37-47); Hemoglobin 12.8 g/dL (12.0-15.0); Lymphocyte # 1.39 X10^3/ul (0.83-4.51); Mean Corp Hgb Conc 32.2 g/dL (32-36); Mean Corpuscular Hgb 28.7 pg (27.0-32.0); Mean Corpuscular Volume 89.2 fL (81-99); Monocyte# 0.36 X10^3/uL; Monocyte% 7.8 % (0-10); NRBC Flagged by Analyzer 0 % (0-5); Neutrophil # 2.75 X10^3/uL (2.7-7.7); Neutrophil % 59.5 % (47-70); Platelet Count 243 K/mm3 (150-450); RBC Distribution Width CV 12.9 % (11.6-14.6); RBC Distribution Width SD 42.1 fl (35.1-43.9); Red Blood Count 4.46 M/mm3 (4.2-5.4); White Blood Count 4.6 K/mm3 (4.4-11.0)
[2023-08-08 18:08] LABS: AST(SGOT) 19 U/L (15-37); Alanine Aminotransfer ALT/SGPT 24 U/L (13-56); Albumin, Serum 3.8 g/dL (3.2-5.0); Alkaline Phosphatase 76 U/L (45-117); Anion Gap 7 (5-15); BUN 14 mg/dL (7-18); BUN/Creat Ratio 14.2 RATIO (10-20); Calcium,Total 9.5 mg/dL (8.5-10.1); Chloride 104 mmol/L (98-107); Cholesterol 321 mg/dL (200); Creatinine, Serum 0.98 mg/dL (0.55-1.02); EST Glomerular Filtration Rate 59 mL/min (>60); Est Glom Filt Rate - Afr Amer 71 mL/min (>60); Free T3 2.5 pg/mL (2.18-3.98); Globulin 3.8 g/dL (2.2-4.2); Glucose 98 mg/dL (74-106); High Density Lipoprotein 78 mg/dL; Potassium 4.2 mmol/L (3.5-5.1); Protein, Total 7.6 g/dL (6.4-8.2); Sodium Level 139 mmol/L (136-145); T4 Free Direct 1.36 ng/dL (0.76-1.46); Triglycerides 73 mg/dL; Very Low Density Lipoprotein 15 mg/dL (5-40)
== END | disposition home or self-care (01) ==
LOC: BIMLAB 15:25
PROVIDERS: PCP Internal Medicine; Visit Provider Internal Medicine
DX: E03.9 Hypothyroidism, unspecified (principal); E55.9 Vitamin D deficiency, unspecified; K57.92 Diverticulitis of intestine, part unspecified, without perforation or abscess without bleeding; K31.84 Gastroparesis; R74.8 Abnormal levels of other serum enzymes; Z85.060 Personal history of malignant carcinoid tumor of small intestine
CPT/HCPCS: 36415; 80053; 80061; 82306; 83735; 84439; 84443; 84481; 85025

== ENCOUNTER 2024-02-17 13:44 | Observation (INO) | payer MEDICARE, SELFPAY ==
[2024-02-17 13:45] VITALS: BP 115/84; PULSE 94; RESP 16; TEMP 36.3; O2SAT 97; BMI 26.2
--- NOTE | 2024-02-17 14:03 | EX.ED.GENINJ ---
HPI History of Present Illness Chief Complaint: Nausea/Vomiting/Diarrhea Narrative Narrative: Chief complaint and HPI: Nausea and vomiting. 74-year-old female with history of gastroparesis presents for evaluation of nausea and vomiting. 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 She states her gastroparesis has worsened in the past 5 years. Patient states that periodically her gastroparesis flares up. She states it starts with about 24 hours of diarrhea and then leads to nausea and vomiting. Patient states that usually resolves with fluids and antinausea medication. Patient states yesterday she developed diarrhea which has since resolved. She now endorses nausea and vomiting. Decreased p.o. intake. Denies any fever, chills, shortness of breath, cough, URI symptoms, chest pain, abdominal pain, dysuria, hematuria, constipation, bloody bowel movements. Patient states that this feels like her typical gastroparesis flare. Review of systems: See HPI Medications: As listed on the chart Allergies: As listed on the chart PFSH: Per chart Vital signs: As listed on the chart. Reviewed. Physical exam: Gen: A&O x3, NAD Head: Normocephalic, atraumatic Eyes: No sclera icterus, conjunctiva clear ENT: Mildly dry mucous membranes Neck: Trachea midline, No JVD CV: RRR, no murmurs, no peripheral edema Resp: Lungs CTA BL, no w/r/c GI: Abd soft, non-distended, non-tender, no r/r/g Musc: Full ROM, no deformity Skin: Warm, dry Neuro: Alert, oriented, grossly intact, sensation intact Psych: Cooperative, appropriate mood and affect [facility] Medical History Hypothyroidism polypectomy Gastroparesis Carcinoid tumor Home Medications ?Medication ?Instructions ?Recorded ?Last Taken ?Type melatonin 5 mg capsule 5 mg PO DAILY 10/25/22 02/16/24 History levothyroxine 88 mcg tablet 88 mcg PO DAILY #90 tabs 07/05/23 02/17/24 Rx prucalopride 2 mg tablet 2 mg PO DAILY #90 tabs 01/09/24 02/16/24 Rx (Motegrity) cholecalciferol (vitamin D3) 25 25 mcg PO QDAY 01/23/24 02/17/24 History mcg (1,000 unit) capsule pantoprazole 20 mg tablet,delayed 20 mg PO 4XD 02/17/24 02/17/24 History release potassium iodide 65 mg tablet 130 mg PO DAILY 02/17/24 02/16/24 History Allergy/AdvReac Type Severity Reaction Status Date / Time Sulfa (Sulfonamide Allergy Mild Rash Verified 02/17/24 13:45 Antibiotics) sulfamethoxazole (From Allergy Mild rash Verified 02/17/24 13:45 Bactrim) trimethoprim (From Bactrim) Allergy Mild rash Verified 02/17/24 13:45 aspirin AdvReac Mild nose bleed Verified 02/17/24 13:45 Family History Father Heart disease Myocardial infarction Mother CVA (cerebral vascular accident) Thyroid disorder Cancer Asthma Breast cancer Sister Cancer Surgical History H/O: hysterectomy Social History Smoking Status: Never smoker alcohol intake: never substance use type: does not use EXAM Physical Exam Const Vital Signs: 02/17/24 13:45 02/17/24 15:44 02/17/24 17:00 Temperature 97.4 F L 98.1 F Temperature Source Temporal Oral Pulse Rate 94 71 74 Respiratory Rate 16 16 16 Blood Pressure 115/84 H 152/82 H 130/78 H Blood Pressure Mean 94 105 95 Pulse Ox 97 97 98 Oxygen Delivery Method Room Air Room Air 02/17/24 17:04 Temperature 98.1 F Temperature Source Pulse Rate 74 Respiratory Rate 16 Blood Pressure 130/78 H Blood Pressure Mean 95 Pulse Ox 98 Oxygen Delivery Method MDM MDM MDM Narrative Medical decision making narrative: 74-year-old female with history of gastroparesis presents for evaluation of nausea and vomiting. Patient states that this feels like her typical gastroparesis flare. Physical exam is unremarkable except for mildly dry mucous membranes. Abdomen is benign. Differential diagnosis includes but is not limited to gastroparesis flare, viral illness, electrolyte abnormality, dehydration, ALICIA, UTI. NS bolus and Reglan ordered for symptoms. Basic labs ordered including urine. I do not think any imaging is needed at this time. CBC without leukocytosis. Patient has hemoconcentration with a hemoglobin of 17.4. This is consistent with dehydration. CMP without transaminitis however patient has mild hyponatremia of 3.3. P.o. potassium ordered. She has an ALICIA with creatinine of 2.37. Patient's creatinine in July was normal at 0.98. She has been has been as high as 1.79 in the past. Patient receiving fluids. Magnesium level unremarkable. UA positive for UTI. Patient has nitrates and leuk esterase. As well as 1+ bacteria. Rocephin ordered. Urine culture obtained. Patient's nausea and vomiting may be secondary to her gastroparesis as well as UTI. Given her ALICIA, she will warrant admission to the hospital for further IV hydration and monitoring. Patient and were updated on the results and the plan. They confirmed understanding. Patient was discussed with Dr. Ren who accepted admission. Impression: 1. ALICIA secondary to dehydration 2. UTI 3. Nausea and vomiting with history of gastroparesis 4. Mild hypokalemia Lab Data Labs: Laboratory Results - last 24 hr 02/17/24 02/17/24 14:15 16:10 WBC 8.2 RBC 6.00 H Hgb 17.4 H Hct 51.3 H MCV 85.5 MCH 29.0 MCHC 33.9 RDW Std Deviation 39.9 RDW Coeff of Dannie 12.9 Plt Count 322 MPV 9.9 Immature Gran % (Auto) 0.500 Neut % (Auto) 84.3 H Lymph % (Auto) 8.4 L [place] % (Auto) 6.1 Eos % (Auto) 0.2 Baso % (Auto) 0.5 Absolute Neuts (auto) 6.9 Absolute Lymphs (auto) 0.69 L Nucleated RBC % 0 Sodium 138 Potassium 3.3 L Chloride 94 L Carbon Dioxide 32.0 Anion Gap 12 BUN 22 H Creatinine 2.37 H Estim Creat Clear Calc 19.45 Est GFR (MDRD) Af Amer 26 L Est GFR (MDRD) Non-Af 21 L BUN/Creatinine Ratio 9.3 L Glucose 141 H Calcium 10.6 H Magnesium 2.1 Total Bilirubin 0.60 AST 13 L ALT 22 Alkaline Phosphatase 117 Total Protein 9.6 H Albumin 4.9 Globulin 4.7 H Albumin/Globulin Ratio 1.0 Urine Color Melba Urine Clarity Cloudy Urine pH 6.0 Ur Specific [place] 1.025 Urine Protein 100 H Urine Glucose (UA) Normal Urine Ketones 5 H Urine Occult Blood 10 H Urine Nitrite Positive H Urine Bilirubin 3 H Urine Urobilinogen 1 H Ur Leukocyte Esterase 100 H Urine RBC 0 SEEN Urine WBC 10-25 SEEN Ur Squamous Epith Cells 0-5 SEEN Ur Transition Epith Cell 0-5 SEEN Ur Renal Epithelial Cell 0-5 SEEN Calcium Oxalate Crystal 1+ Urine Bacteria 1+ Hyaline Casts 50-100 SEEN Fine Granular Casts 0-5 SEEN WBC Casts 0-5 SEEN Urine Mucus 3+ Discharge Plan Triage Chief Complaint: Nausea/Vomiting/Diarrhea ED Provider: Narinder Gomez Dx/Rx/DC Orders Primary Care Provider: Edel Pinto
[2024-02-17] MEDS: 0.9% Normal Saline (1000mL) 1,000 ML 1000 ML IV (14:11)
[2024-02-17] MEDS: Metoclopramide 10 MG/2 ML Vial IV (14:11)
[2024-02-17 14:23] LABS: Absolute Lymphocyte Count 0.69 X10^3/uL (0.83-4.51); Absolute Neutrophil Count 6.9 X10^3/uL (2.0-7.7); Basophil# 0.04 X10^3/uL; Basophil% 0.5 % (0-1); Eosinophil# 0.02 X10^3/uL; Eosinophils% 0.2 % (0-5); Hematocrit 51.3 % (37-47); Hemoglobin 17.4 g/dL (12.0-15.0); Lymphocyte # 0.69 X10^3/ul (0.83-4.51); Lymphocyte % 8.4 % (19-41); Mean Corp Hgb Conc 33.9 g/dL (32-36); Mean Corpuscular Volume 85.5 fL (81-99); Mean Platelet Vol. 9.9 fl (6.2-12.0); Monocyte% 6.1 % (0-10); NRBC Flagged by Analyzer 0 % (0-5); Neutrophil # 6.89 X10^3/uL (2.7-7.7); Neutrophil % 84.3 % (47-70); Platelet Count 322 K/mm3 (150-450); RBC Distribution Width CV 12.9 % (11.6-14.6); RBC Distribution Width SD 39.9 fl (35.1-43.9); White Blood Count 8.2 K/mm3 (4.4-11.0)
[2024-02-17 14:40] LABS: AST(SGOT) 13 U/L (15-37); Alanine Aminotransfer ALT/SGPT 22 U/L (13-56); Albumin, Serum 4.9 g/dL (3.2-5.0); Alkaline Phosphatase 117 U/L (45-117); Anion Gap 12 (5-15); BUN 22 mg/dL (7-18); BUN/Creat Ratio 9.3 RATIO (10-20); Calcium,Total 10.6 mg/dL (8.5-10.1); Chloride 94 mmol/L (98-107); Creatinine, Serum 2.37 mg/dL (0.55-1.02); EST Glomerular Filtration Rate 21 mL/min (>60); Est Glom Filt Rate - Afr Amer 26 mL/min (>60); Estimated Creatinine Clearance 19.45 ml/min; Globulin 4.7 g/dL (2.2-4.2); Glucose 141 mg/dL (74-106); Magnesium 2.1 mg/dL (1.6-2.6); Potassium 3.3 mmol/L (3.5-5.1); Protein, Total 9.6 g/dL (6.4-8.2); Sodium Level 138 mmol/L (136-145)
[2024-02-17 15:44] VITALS: BP 152/82; PULSE 71; RESP 16; O2SAT 97
[2024-02-17] MEDS: Potassium Chloride Oral Soln 20 MEQ/15 ML UDC 40 MEQ PO (16:02)
[2024-02-17 16:18] LABS: Red Blood Cells-Urine 0 SEEN /hpf (0-5)
[2024-02-17 16:26] LABS: Color, Urine Amber (Yellow); Glucose, Dipstick Normal (Normal); Ketone-Dipstick 5 mg/dl (Negative); Leukocyte Esterase-Dipstick 100 /ul (Negative); Nitrite-Dipstick Positive (Negative); Occult Blood-Urine 10 /ul (Negative); Protein-Dipstick 100 mg/dl (Negative); Specific Gravity, Urine 1.025 (1.002-1.030); Urine Bilirubin Dipstick 3 mg/dL (Negative); Urine Clarity Cloudy (Clear); Urine Urobilinogen 1 mg/dl (Normal)
[2024-02-17 16:46] LABS: Hyaline Cast 50-100 SEEN /lpf (0-5); White Blood Cells 10-25 SEEN /hpf (0-5)
[2024-02-17 16:47] LABS: Mucous, Urine 3+ /hpf (<or=2+); Squamous Epithelial Cells - UA 0-5 SEEN /hpf (5-10)
[2024-02-17 16:49] LABS: Fine Granular Cast- Urine 0-5 SEEN /lpf (0-5)
[2024-02-17] MEDS: Ceftriaxone 2 GM in 0.9% Normal Saline (50mL MB+) 50 ML IV (16:59)
[2024-02-17 17:00] VITALS: BP 130/78; PULSE 74; RESP 16; TEMP 36.7; O2SAT 98
[2024-02-17 17:04] VITALS: BP 130/78; PULSE 74; RESP 16; TEMP 36.7; O2SAT 98
[2024-02-17 17:06] LABS: White Cell Cast 0-5 SEEN /lpf (None Seen)
[2024-02-17 17:07] LABS: Calcium Oxalate Crystals Ur 1+ /hpf (<or=2+)
[2024-02-17 17:08] LABS: Renal Epithelial Cells 0-5 SEEN /hpf (0-5); Transitional Epithelial - Ur 0-5 SEEN /hpf (0-5)
[2024-02-17 17:10] LABS: Bacteria 1+ /hpf (None Seen)
--- NOTE | 2024-02-17 17:23 | PCM.HP.STD ---
HPI - General General Date of Admission: 02/17/24 Date of Service: 02/17/24 Chief Complaint: N/V/Diarrhea HPI Narrative TRISH MONROE, is a 74-year-old female history of hypothyroidism, GERD, gastroparesis and distant history of carcinoid tumor with resection presented to [facility] ED 02/17/24 for worsening nausea and vomiting.? Her gastroparesis is worsened over the past 5 years and she periodically has gastroparesis flares which usually start with 24 hours of diarrhea which lead to nausea and vomiting and these events usually resolve with fluids and antiemetics.? She had diarrhea yesterday which is since resolved and is now endorsing nausea and vomiting with decreased p.o. intake.? In the ED patient with ALICIA with creatinine of 2.37, patient given IV fluids and hospitalist contacted for admission. Patient evaluated at bedside. She reports that she has history of gastroparesis and has flares roughly once a week, her flares usually start with diarrhea and when she is volume depleted she has nausea and vomiting. Had an episode on Saturday that resolved but then resumed yesterday evening with diarrhea roughly every hour and this morning with nausea and vomiting every couple of hours, she said this is just like her usual gastroparesis flare since she goes to [facility] but today when she went there there was a very large line so she opted to come to our hospital instead. She reports she usually does not get admitted and just gets antiemetics and IV fluids and then goes home. She denies any fevers or chills, she has no abdominal pain, no urinary symptoms, did note some darker urine this morning but has not had any suprapubic tenderness, urinary frequency, urgency, burning. Does have history of UTIs and said her main symptom is usually lower abdominal pain which she does not have at this time. Denies any other new or acute complaints. [facility] Medical History (Updated 02/17/24 @ 17:[address] Vaishali Ren MD) Carcinoid tumor Gastroparesis Hypothyroidism polypectomy Home Medications ?Medication ?Instructions ?Recorded ?Last Taken ?Type melatonin 5 mg capsule 5 mg PO DAILY 10/25/22 02/16/24 History levothyroxine 88 mcg tablet 88 mcg PO DAILY #90 tabs 07/05/23 02/17/24 Rx prucalopride 2 mg tablet 2 mg PO DAILY #90 tabs 01/09/24 02/16/24 Rx (Motegrity) cholecalciferol (vitamin D3) 25 25 mcg PO QDAY 01/23/24 02/17/24 History mcg (1,000 unit) capsule pantoprazole 20 mg tablet,delayed 20 mg PO 4XD 02/17/24 02/17/24 History release potassium iodide 65 mg tablet 130 mg PO DAILY 02/17/24 02/16/24 History Allergy/AdvReac Type Severity Reaction Status Date / Time Sulfa (Sulfonamide Allergy Mild Rash Verified 02/17/24 13:45 Antibiotics) sulfamethoxazole (From Allergy Mild rash Verified 02/17/24 13:45 Bactrim) trimethoprim (From Bactrim) Allergy Mild rash Verified 02/17/24 13:45 aspirin AdvReac Mild nose bleed Verified 02/17/24 13:45 Family History Father Heart disease Myocardial infarction Mother CVA (cerebral vascular accident) Thyroid disorder Cancer Asthma Breast cancer Sister Cancer Surgical History H/O: hysterectomy Social History Smoking Status: Never smoker alcohol intake: never substance use type: does not use ROS ROS Narrative General: Denies fever/chills HENT: Denies headache, chronic stuffy nose, denies sore throat EYES: Denies changes in vision Resp: Denies cough, denies shortness of breath Cardiac: Denies chest pain GI: Denies abdominal pain, frequent diarrhea, nausea and vomiting : Denies changes in urination Extremity: Denies swelling MSK: Denies weakness Neuro: Denies any numbness/tingling Heme: Denies any bleeding or bruising Skin: Denies rashes Psychiatric: No complaints voiced Vital Signs Vital Signs Vital Signs: 02/17/24 13:45 02/17/24 15:44 02/17/24 17:00 Temperature 97.4 F L 98.1 F Temperature Source Temporal Oral Pulse Rate 94 71 74 Respiratory Rate 16 16 16 Blood Pressure 115/84 H 152/82 H 130/78 H Blood Pressure Mean 94 105 95 Pulse Ox 97 97 98 Oxygen Delivery Method Room Air Room Air 02/17/24 17:04 Temperature 98.1 F Temperature Source Pulse Rate 74 Respiratory Rate 16 Blood Pressure 130/78 H Blood Pressure Mean 95 Pulse Ox 98 Oxygen Delivery Method Weight Weight: 67.086 kg Body Mass Index (BMI) 26.2 Physical Exam Narrative General: Alert, oriented, no apparent distress HEENT: Atraumatic, normocephalic Eyes: Anicteric, normal conjunctiva, extraocular movements grossly intact Neck: Supple Respiratory: Clear to auscultation bilaterally, normal respiratory effort Cardiovascular: Regular rate and rhythm GI: Soft, nontender, nondistended Extremities: No edema Musculoskeletal: Moving all extremities Neuro: No overt focal neurological deficits Skin: No rashes appreciated Psych: Cooperative Results Lab / Micro Data 02/17/24 14:15 02/17/24 14:15 Labs: Laboratory Results - last 24 hr 02/17/24 14:15: WBC 8.2, RBC 6.00 H, Hgb 17.4 H, Hct 51.3 H, MCV 85.5, MCH 29.0, MCHC 33.9, RDW Std Deviation 39.9, RDW Coeff of Dannie 12.9, Plt Count 322, MPV 9.9, Immature Gran % (Auto) 0.500, Neut % (Auto) 84.3 H, Lymph % (Auto) 8.4 L, [place] % (Auto) 6.1, Eos % (Auto) 0.2, Baso % (Auto) 0.5, Absolute Neuts (auto) 6.9, Absolute Lymphs (auto) 0.69 L, Nucleated RBC % 0, Sodium 138, Potassium 3.3 L, Chloride 94 L, Carbon Dioxide 32.0, Anion Gap 12, BUN 22 H, Creatinine 2.37 H, Estim Creat Clear Calc 19.45, Est GFR (MDRD) Af Amer 26 L, Est GFR (MDRD) Non-Af 21 L, BUN/Creatinine Ratio 9.3 L, Glucose 141 H, Calcium 10.6 H, Magnesium 2.1, Total Bilirubin 0.60, AST 13 L, ALT 22, Alkaline Phosphatase 117, Total Protein 9.6 H, Albumin 4.9, Globulin 4.7 H, Albumin/Globulin Ratio 1.0 02/17/24 16:10: Urine Color Melba, Urine Clarity Cloudy, Urine pH 6.0, Ur Specific [place] 1.025, Urine Protein 100 H, Urine Glucose (UA) Normal, Urine Ketones 5 H, Urine Occult Blood 10 H, Urine Nitrite Positive H, Urine Bilirubin 3 H, Urine Urobilinogen 1 H, Ur Leukocyte Esterase 100 H, Urine RBC 0 SEEN, Urine WBC 10-25 SEEN, Ur Squamous Epith Cells 0-5 SEEN, Ur Transition Epith Cell 0-5 SEEN, Ur Renal Epithelial Cell 0-5 SEEN, Calcium Oxalate Crystal 1+, Urine Bacteria 1+, Hyaline Casts 50-100 SEEN, Fine Granular Casts 0-5 SEEN, WBC Casts 0-5 SEEN, Urine Mucus 3+ Assessment & Plan Assessment/Plan (1) Nausea & vomiting: PLAN: Plan # Intractable nausea and vomiting -Suspect secondary to gastroparesis flare given history, she reports she gets these roughly once a week and this is consistent with her previous flares. Usually however just goes to [facility] but given long wait times she presented to this hospital -IV fluids -Antiemetics -Transitional diet, the patient has difficulty tolerating this can back off to clear liquids or n.p.o. -Continue home Motegrity if patient able to bring this in -Patient usually improves with IV fluids and antiemetics and often does not require admission to the hospital or is able to be quickly discharged, may be able to DC soon as tomorrow if improving -Follow-up with Dr. Nagy with [facility] for her gastroparesis on discharge as this is who she follows with as her specialist -Will obtain stool studies to rule out infectious etiology though lower suspicion of this # ALICIA -Creatinine 2.37 and BUN 22, up from 0.98 and 14 respectively several months ago -Suspect secondary to volume depletion with her poor p.o., significant diarrhea, nausea and vomiting -IV fluids -Repeat in a.m. -If not improving w/ IVF will need further workup #Abnormal UA -Patient with nitrate and leuk esterase but only 10-25 white blood cells and patient with mucus, calcium oxalate crystals, hyaline casts. Does have 1+ bacteria but no symptoms, fever, elevated white blood cell count. Feel it is reasonable to follow urine culture and if positive will treat with antibiotics, if negative likely will not need empiric treatment -Urine culture ordered #Hypokalemia -Replace -Repeat in the AM #Hypothyroidism -Continue Synthroid #GERD -Continue PPI #DVT ppx: Heparin subcu Vaishali Ren, MD Charges/Coding Visit Charges Inpatient E&M: 24064 Init Hosp L2
[2024-02-17 18:00] VITALS: BMI 26.5
[2024-02-17 18:06] VITALS: BP 138/88; PULSE 75; RESP 18; TEMP 36.8; O2SAT 99
[2024-02-17] MEDS: 0.9% Normal Saline (1000mL) 1,000 ML 100 ML IV (18:15)
[2024-02-17] MEDS: Pantoprazole Sodium 20 MG Tablet PO ×2 (18:42→22:04)
[2024-02-17 21:42] VITALS: BP 138/85; PULSE 66; RESP 18; TEMP 36.8; O2SAT 98
[2024-02-17] MEDS: MELATONIN 10 MG TABLET 5 MG PO (22:04)
[2024-02-18 02:02] VITALS: BMI 26.5
[2024-02-18 04:17] VITALS: BP 117/81; PULSE 65; RESP 18; TEMP 36.9; O2SAT 94
[2024-02-18] MEDS: 0.9% Normal Saline (1000mL) 1,000 ML 100 ML IV (04:22)
[2024-02-18] MEDS: Levothyroxine 88 MCG Tablet PO (05:57)
[2024-02-18 07:54] LABS: Absolute Neutrophil Count 4.2 X10^3/uL (2.0-7.7); Basophil# 0.02 X10^3/uL; Basophil% 0.3 % (0-1); Eosinophil# 0.07 X10^3/uL; Eosinophils% 1.2 % (0-5); Hematocrit 38.7 % (37-47); Hemoglobin 12.9 g/dL (12.0-15.0); Lymphocyte % 19.9 % (19-41); Mean Corp Hgb Conc 33.3 g/dL (32-36); Mean Corpuscular Hgb 28.7 pg (27.0-32.0); Mean Corpuscular Volume 86.2 fL (81-99); Mean Platelet Vol. 10.4 fl (6.2-12.0); Monocyte# 0.52 X10^3/uL; Monocyte% 8.6 % (0-10); NRBC Flagged by Analyzer 0 % (0-5); Neutrophil # 4.21 X10^3/uL (2.7-7.7); Neutrophil % 69.8 % (47-70); Platelet Count 228 K/mm3 (150-450); RBC Distribution Width CV 13.1 % (11.6-14.6); RBC Distribution Width SD 40.6 fl (35.1-43.9); Red Blood Count 4.49 M/mm3 (4.2-5.4)
[2024-02-18 08:43] LABS: AST(SGOT) 12 U/L (15-37); Alanine Aminotransfer ALT/SGPT 14 U/L (13-56); Albumin, Serum 3.3 g/dL (3.2-5.0); Alkaline Phosphatase 80 U/L (45-117); Anion Gap 9 (5-15); BUN 23 mg/dL (7-18); BUN/Creat Ratio 18.3 RATIO (10-20); Calcium,Total 8.6 mg/dL (8.5-10.1); Chloride 105 mmol/L (98-107); Creatinine, Serum 1.26 mg/dL (0.55-1.02); EST Glomerular Filtration Rate 44 mL/min (>60); Est Glom Filt Rate - Afr Amer 54 mL/min (>60); Estimated Creatinine Clearance 36.81 ml/min; Globulin 3.3 g/dL (2.2-4.2); Glucose 105 mg/dL (74-106); Magnesium 1.9 mg/dL (1.6-2.6); Potassium 3.7 mmol/L (3.5-5.1); Protein, Total 6.6 g/dL (6.4-8.2); Sodium Level 138 mmol/L (136-145)
[2024-02-18 08:53] VITALS: BP 128/80; PULSE 62; RESP 16; TEMP 36.9; O2SAT 96
[2024-02-18] MEDS: Pantoprazole Sodium 20 MG Tablet PO ×2 (08:59→13:49)
[2024-02-18] MEDS: 0.9% Saline Lock 10 ML Syringe IV (13:52)
[2024-02-18 13:53] VITALS: BP 130/88; PULSE 62; RESP 16; TEMP 36.6; O2SAT 97
--- NOTE | 2024-02-18 14:26 | DCINST_ITS ---
Discharge Instructions Diet Discharge Diet: Low fat / Low cholesterol Activity Discharge Activity: Return to Normal Activity Weight Bearing Status: Weight bearing as tolerated Dressing / Incision Call your doctor if you observe: Fever of 101 or Higher, Dizziness, Chest pain and - (nausea and vomiting) Follow Up Care Test Results: Test results from this visit will be discussed in further detail at your follow- up appointment, if applicable. Discharge Plan Admission Admit Date/Time: 02/17/24 17:23 Primary Reason for Your Visit: nausea and vomiting, gastroparesis Attending Provider: Cathleen Abdalla Primary Care Provider: Edel Pinto Consulting Providers: Vaishali Ren Instructions Patient Instructions: Gastroparesis Additional Instructions / Restrictions: see PCP for repeat BMP within 2-3 days to evaluate kidney function Discharge Orders/Prescriptions Prescriptions: Continued melatonin 5 mg capsule 5 mg PO DAILY cholecalciferol (vitamin D3) 25 mcg (1,000 unit) capsule 25 mcg PO QDAY potassium iodide 65 mg tablet 130 mg PO DAILY pantoprazole 20 mg tablet,delayed release (DR/EC) 20 mg PO 4XD levothyroxine 88 mcg tablet 88 mcg PO DAILY Qty: 90 3RF Motegrity 2 mg tablet 2 mg PO DAILY Qty: 90 1RF Referrals / Follow Up: Edel Pinto MD [Primary Care Provider] - Within 1 Week Disposition Disposition (needs filled in before D/C Order can be placed): Home, Self Care
--- NOTE | 2024-02-18 14:26 | PCM.DC.SUM ---
Providers Date of Admission: 02/17/24 Date of Discharge: 02/18/24 Primary Care Physician: Dr. Edel Pinto MD Reason For Visit: ALICIA, GASTROPARESIS FLARE Diagnosis Discharge Diagnosis (1) Nausea & vomiting: Status: Acute Code(s): R11.2 - Nausea with vomiting, unspecified Medications at Discharge Home Medications melatonin 5 mg capsule 5 mg PO DAILY 10/25/22 levothyroxine 88 mcg tablet 88 mcg PO DAILY #90 tabs 07/05/23 prucalopride 2 mg tablet (Motegrity) 2 mg PO DAILY #90 tabs 01/09/24 cholecalciferol (vitamin D3) 25 mcg (1,000 unit) capsule 25 mcg PO QDAY 01/23/24 pantoprazole 20 mg tablet,delayed release 20 mg PO 4XD 02/17/24 potassium iodide 65 mg tablet 130 mg PO DAILY 02/17/24 Hospital Course Operations None Procedures None Summary of Care Provided Minutes Spent on Discharge: 55 Hospital Course: Patient is a 74 y/o femalw with a PMH as outlined including carcinoid tumor with resection and gastroparesis who was admitted via the ED on 02/17/2024 with a complaint of diarrhea as well as nausea and vomiting which had been going on for several days and not been worsening. He said the diarrhea had resolved at home before she came in but the nausea and vomiting had worsened. She did have a history of gastroparesis and says she had occasional flareups of such nausea and vomiting. On admission she was found to be in ALICIA with creatinine of 2.37. She was hydrated with IV fluids and given IV Zofran. Her symptoms improved and she felt much better. Her creatinine also trended down to 1.26. She was able to tolerate a diet and did much better. She was discharged home at her request on 02/18/2024. She was discharged on 02/18/2024 and is to follow-up with her primary care doctor within 1 week. She is however to follow with the PCP in 2 to 3 days for repeat BMP to follow-up on kidney function. She is to continue Motegrity (prucalopride) for the gastroparesis. Patient seen and examined prior to discharge. She felt much better and had no complaints. She had an uneventful night. Review of systems otherwise negative. Labs and vitals reviewed. Home medication reviewed and reconciled. Physical Exam Const alert, oriented x3 and no apparent distress General Appearance: cooperative and comfortable Orientation / Consciousness: awake Exam Limitations: no limitations HEENT normocephalic, head/scalp atraumatic, hearing grossly normal bilaterally, moist oral mucous membranes and oropharynx normal Mouth: oral and palatal mucosa normal Eyes PERRL, EOMs intact bilaterally and conjunctivae normal Neck no lymphadenopathy and supple Resp normal respiratory effort, no retractions, no use of accessory muscles and clear to auscultation bilaterally Cardio regular rate, regular rhythm, S1 normal heart sound, S2 normal heart sound and no murmurs GI normal to inspection, nondistended, normoactive bowel sounds, soft to palpation and non-tender Extremity normal to inspection, full ROM and no clubbing, cyanosis or edema Skin no rashes or lesions noted Neuro oriented x3, CN's II-XII intact bilaterally, moves all extremities and no focal motor deficits Sensorium / Orientation: awake Motor Exam: strength 5/5 throughout Psych affect normal Weight / BMI Weight Weight: 149 lb 14.629 oz Body Mass Index (BMI) 26.5 ABG / Lab / Microbiology Data 02/18/24 06:40 02/18/24 06:40 Laboratory: Laboratory Results - last 24 hr 02/17/24 14:15: Sodium 138, Potassium 3.3 L, Chloride 94 L, Carbon Dioxide 32.0, Anion Gap 12, BUN 22 H, Creatinine 2.37 H, Estim Creat Clear Calc 19.45, Est GFR (MDRD) Af Amer 26 L, Est GFR (MDRD) Non-Af 21 L, BUN/Creatinine Ratio 9.3 L, Glucose 141 H, Calcium 10.6 H, Magnesium 2.1, Total Bilirubin 0.60, AST 13 L, ALT 22, Alkaline Phosphatase 117, Total Protein 9.6 H, Albumin 4.9, Globulin 4.7 H, Albumin/Globulin Ratio 1.0 02/17/24 16:10: Urine Color Melba, Urine Clarity Cloudy, Urine pH 6.0, Ur Specific [place] 1.025, Urine Protein 100 H, Urine Glucose (UA) Normal, Urine Ketones 5 H, Urine Occult Blood 10 H, Urine Nitrite Positive H, Urine Bilirubin 3 H, Urine Urobilinogen 1 H, Ur Leukocyte Esterase 100 H, Urine RBC 0 SEEN, Urine WBC 10-25 SEEN, Ur Squamous Epith Cells 0-5 SEEN, Ur Transition Epith Cell 0-5 SEEN, Ur Renal Epithelial Cell 0-5 SEEN, Calcium Oxalate Crystal 1+, Urine Bacteria 1+, Hyaline Casts 50-100 SEEN, Fine Granular Casts 0-5 SEEN, WBC Casts 0-5 SEEN, Urine Mucus 3+ 02/18/24 06:40: WBC 6.0, RBC 4.49, Hgb 12.9, Hct 38.7, MCV 86.2, MCH 28.7, MCHC 33.3, RDW Std Deviation 40.6, RDW Coeff of Dannie 13.1, Plt Count 228, MPV 10.4, Immature Gran % (Auto) 0.200, Neut % (Auto) 69.8, Lymph % (Auto) 19.9, [place] % (Auto) 8.6, Eos % (Auto) 1.2, Baso % (Auto) 0.3, Absolute Neuts (auto) 4.2, Absolute Lymphs (auto) 1.20, Nucleated RBC % 0, Sodium 138, Potassium 3.7, Chloride 105, Carbon Dioxide 24.0, Anion Gap 9, BUN 23 H, Creatinine 1.26 H, Estim Creat Clear Calc 36.81, Est GFR (MDRD) Af Amer 54 L, Est GFR (MDRD) Non-Af 44 L, BUN/Creatinine Ratio 18.3, Glucose 105, Calcium 8.6, Magnesium 1.9, Total Bilirubin 0.50, AST 12 L, ALT 14, Alkaline Phosphatase 80, Total Protein 6.6, Albumin 3.3, Globulin 3.3, Albumin/Globulin Ratio 1.0, TSH 1.040 Microbiology: Microbiology 02/18/24 10:50 Stool Enteric Bacteriology - Final 02/17/24 16:10 Urine, Clean Catch Urine Culture - Preliminary Culture exhibits no growth. D/C Instructions Discharge Diet: Low fat / Low cholesterol Discharge Activity: Return to Normal Activity Weight Bearing Status: Weight bearing as tolerated Call your doctor if you observe: Fever of 101 or Higher, Dizziness, Chest pain and - (nausea and vomiting) Meaningful Use Info Meaningful Use Meaningful Use Diagnoses (Choose all that apply): None applicable Ischemic Stroke Statin Dosing Therapy Reference: STATIN DOSE THERAPY REFERENCE: * Patients > 75 years receive moderate or high dose statin therapy. * Patients 75 years or YOUNGER should receive HIGH intensity statin dose unless contraindicated. You will be required to document reason for non-treatment if statin daily dose does not meet guidelines. HIGH DOSE STATIN THERAPY DAILY Atorvastatin > than or = to 40 mg Rosuvastatin > than or = to 20 mg Amlodipine + Atorvastatin > than or = to 2.5/40 mg Ezetimibe + Simvastatin 10/80 mg Simvastatin 80mg Discharge Plan Admission Admit Date/Time: 02/17/24 17:23 Primary Reason for Your Visit: nausea and vomiting, gastroparesis Attending Provider: Cathleen Abdalla Primary Care Provider: Edel Pinto Consulting Providers: Vaishali Ren Instructions Patient Instructions: Gastroparesis Additional Instructions / Restrictions: see PCP for repeat BMP within 2-3 days to evaluate kidney function Discharge Orders/Prescriptions Prescriptions: Continued melatonin 5 mg capsule 5 mg PO DAILY cholecalciferol (vitamin D3) 25 mcg (1,000 unit) capsule 25 mcg PO QDAY potassium iodide 65 mg tablet 130 mg PO DAILY pantoprazole 20 mg tablet,delayed release (DR/EC) 20 mg PO 4XD levothyroxine 88 mcg tablet 88 mcg PO DAILY Qty: 90 3RF Motegrity 2 mg tablet 2 mg PO DAILY Qty: 90 1RF Referrals / Follow Up: Edel Pinto MD [Primary Care Provider] - Within 1 Week Disposition Disposition (needs filled in before D/C Order can be placed): Home, Self Care Charges/Coding Visit Charges Inpatient E&M: 18057 Disch Hosp >30min
--- NOTE | 2024-02-18 14:35 | CASEMGMT ---
LILLIE CM into pt room, pt sitting up in bed in no distress. Pt states she is I in ADLs and denies concerns at home. Pt up indep and ambulates without a device. She denies any homegoing needs at this time.
--- NOTE | 2024-02-18 15:06 | PHA.DC.MR.R ---
Pharmacy [place] Med Reconciliation Pharmacy Service has performed discharge medication reconciliation for this patient. The patient's discharge medication list was reviewed for discrepancies and discrepancies were resolved. Medications at Discharge Home Medications melatonin 5 mg capsule 5 mg PO DAILY 10/25/22 levothyroxine 88 mcg tablet 88 mcg PO DAILY #90 tabs 07/05/23 prucalopride 2 mg tablet (Motegrity) 2 mg PO DAILY #90 tabs 01/09/24 cholecalciferol (vitamin D3) 25 mcg (1,000 unit) capsule 25 mcg PO QDAY 01/23/24 pantoprazole 20 mg tablet,delayed release 20 mg PO 4XD 02/17/24 potassium iodide 65 mg tablet 130 mg PO DAILY 02/17/24
== END 2024-02-18 15:59 | disposition home or self-care (01) ==
LOC: ED 17:14 → MS3 17:28
PROVIDERS: Admitting Provider Internal Medicine; Emergency Provider Surgery; PCP Internal Medicine; Visit Provider Student in an Organized Health Care Education/Training Program
DX: R07.89 Other chest pain (principal); N17.9 Acute kidney failure, unspecified; E87.6 Hypokalemia; K31.84 Gastroparesis; E86.0 Dehydration; I10 Essential (primary) hypertension; E78.5 Hyperlipidemia, unspecified; Z79.899 Other long term (current) drug therapy
CPT/HCPCS: 36415; 80053; 81001; 83735; 84443; 85025; 87086; 87088; 87506; 96361; 96365; 96375; 99221; 99284; J7030; A4216; G0378; J0696

== ENCOUNTER 2024-02-19 17:35 | Emergency (ER) | payer MEDICARE, SELFPAY ==
[2024-02-19 17:35] VITALS: BP 146/98; PULSE 71; RESP 16; TEMP 36.6; O2SAT 99; BMI 27.3
[2024-02-19 18:04] LABS: Absolute Lymphocyte Count 1.98 X10^3/uL (0.83-4.51); Absolute Neutrophil Count 4.2 X10^3/uL (2.0-7.7); Basophil# 0.04 X10^3/uL; Basophil% 0.6 % (0-1); Eosinophil# 0.13 X10^3/uL; Eosinophils% 1.9 % (0-5); Hematocrit 43.9 % (37-47); Hemoglobin 14.7 g/dL (12.0-15.0); Lymphocyte # 1.98 X10^3/ul (0.83-4.51); Lymphocyte % 28.5 % (19-41); Mean Corp Hgb Conc 33.5 g/dL (32-36); Mean Corpuscular Volume 86.6 fL (81-99); Mean Platelet Vol. 9.9 fl (6.2-12.0); Monocyte# 0.55 X10^3/uL; Monocyte% 7.9 % (0-10); NRBC Flagged by Analyzer 0 % (0-5); Neutrophil # 4.23 X10^3/uL (2.7-7.7); Platelet Count 249 K/mm3 (150-450); RBC Distribution Width CV 12.8 % (11.6-14.6); RBC Distribution Width SD 40.1 fl (35.1-43.9); Red Blood Count 5.07 M/mm3 (4.2-5.4); White Blood Count 6.9 K/mm3 (4.4-11.0)
[2024-02-19 18:19] LABS: ALB/GLOB Ratio 1.2 RATIO (0.9-2.4); AST(SGOT) 16 U/L (15-37); Alanine Aminotransfer ALT/SGPT 20 U/L (13-56); Albumin, Serum 4.4 g/dL (3.2-5.0); Alkaline Phosphatase 97 U/L (45-117); Anion Gap 7 (5-15); BUN 13 mg/dL (7-18); BUN/Creat Ratio 12.7 RATIO (10-20); Calcium,Total 9.7 mg/dL (8.5-10.1); Chloride 108 mmol/L (98-107); Creatinine, Serum 1.02 mg/dL (0.55-1.02); EST Glomerular Filtration Rate 56 mL/min (>60); Est Glom Filt Rate - Afr Amer 68 mL/min (>60); Globulin 3.8 g/dL (2.2-4.2); Glucose 96 mg/dL (74-106); Potassium 3.8 mmol/L (3.5-5.1); Protein, Total 8.2 g/dL (6.4-8.2); Sodium Level 137 mmol/L (136-145)
[2024-02-19 21:35] VITALS: BP 151/79; PULSE 87; RESP 20; O2SAT 96
[2024-02-19] MEDS: Metoclopramide 10 MG/2 ML Vial IV (22:18)
[2024-02-19] MEDS: Morphine 4 MG/ML Syringe IV (22:18)
[2024-02-19] MEDS: 0.9% Normal Saline (1000mL) 1,000 ML 1000 ML IV (22:18)
[2024-02-19 23:00] VITALS: BP 148/87; PULSE 72; RESP 20; O2SAT 97
[2024-02-19 23:55] LABS: Bacteria 0 SEEN /hpf (None Seen); Color, Urine Straw (Yellow); Glucose, Dipstick Normal (Normal); Ketone-Dipstick 15 mg/dl (Negative); Leukocyte Esterase-Dipstick 25 /ul (Negative); Nitrite-Dipstick Negative (Negative); Occult Blood-Urine Negative /ul (Negative); Protein-Dipstick 30 mg/dl (Negative); Red Blood Cells-Urine 0 SEEN /hpf (0-5); Specific Gravity, Urine 1.025 (1.002-1.030); Urine Bilirubin Dipstick Negative (Negative); Urine Clarity Clear (Clear); Urine Urobilinogen Normal (Normal)
[2024-02-20 00:13] LABS: Fine Granular Cast- Urine 0-5 SEEN /lpf (0-5); Hyaline Cast 5-10 SEEN /lpf (0-5); Mucous, Urine 4+ /hpf (<or=2+); Squamous Epithelial Cells - UA 5-10 SEEN /hpf (5-10); White Blood Cells 0-5 SEEN /hpf (0-5)
[2024-02-20 00:52] VITALS: BP 141/82; PULSE 69; RESP 17; TEMP 36.2; O2SAT 99
== END 2024-02-20 00:52 | disposition home or self-care (01) ==
PROVIDERS: Emergency Provider Emergency Medicine; PCP Internal Medicine; Visit Provider Emergency Medicine
DX: R10.9 Unspecified abdominal pain (principal); K31.84 Gastroparesis
CPT/HCPCS: 80053; 81001; 85025; 96361; 96374; 96375; 96376; 99282; J7030; A4216

== ENCOUNTER 2025-03-02 08:25 | Outpatient (CLI) | payer MEDICARE, SELFPAY ==
--- NOTE | 2025-03-02 09:00 | PET_ITS ---
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 Nausea and vomiting. Abdominal pain. Diarrhea. TECHNIQUE: Procedure Code: PETPTCTINIT Modality: PT Procedure: PET/CT TUMOR BASE -THIGH INIT Following the intravenous administration of radionucleotide, image acquisition on a dedicated PET/CT unit was performed at one hour post injection. A preliminary CT study encompassing the Head, neck, chest, abdomen, pelvis, and proximal thighs was performed for purposes of attenuation correction and anatomic localization. The proximal thighs were also included. RADIOPHARMACEUTICAL: 3.4 mCi gallium 68 Dotatate) IV was injected into he patient. RADIATION DOSE SUMMARY: Effective Dose: Approximately 7 mSv for a standard whole-body PET scan Organ Doses: Varies by organ, with higher doses typically to the bladder, liver, and brain COMPARISON: COMPARISON FROM CT, PET OR OTHER PERTINENT EXAMS: None provided.. FINDINGS: Physiologic activity in the spleen, liver, adrenal glands, pituitary gland, kidneys, and urine noted. Milder parotid, submandibular gland,, thyroid uptake is also physiologic. Physiologic bowel uptake is also seen. Head and NECK: No abnormal uptake noted. CHEST: Chest wall- There are no significant chest wall abnormalities. Axilla- 2 subcentimeter right axillary lymph node show abnormal uptake, concerning for the presence of disease. No CT abnormal correlate is noted. Lung parenchyma- There are no significant lung parenchyma abnormalities. Mediastinum- There are no significant hilar or mediastinal adenopathy. Pleura- There are no significant pleural abnormalities. Right upper extremity: In the superficial soft tissues of the distal right arm, a small focus of uptake is seen, without apparent CT correlate; cannot exclude the presence of disease. ABDOMEN: Mild aortic calcification; no evidence of abdominal aortic aneurysm. Mild asymmetric focal uptake at the left adrenal gland is seen, of uncertain significance; no CT correlate is evident. Stomach- No significant abnormalities. Liver- No significant abnormalities. Spleen- No significant abnormalities. Pancrease- No significant abnormalities. Kidneys- No significant abnormalities. Bowel- Normal bowel activity. Spine- No significant abnormalities. PELVIS: Mild sigmoid diverticulosis. Bowel- Normal physiologic bowel activity is identified. Masses- There are no pelvic masses. Bones- Degenerative changes of the spine are most prominent in the lower lumbar and cervical spine. No subluxation is seen. With the use of bone window settings, there are no osteolytic or osteoblastic lesions. There are no FDG avid lesions within the visualized portion of the axial skeleton. PET/PET/CT Tumor Base -Thigh Init IMPRESSION: FDG avid- 1. Two subcentimeter right axillary lymph nodes show radionuclide uptake, new[place] rning for possible foci of disease. 2. In the superficial soft tissues of the distal right arm, a small focus of up take is seen, without apparent CT correlate; cannot exclude the presence of disease at this site, as well, particularly give n the right axillary aforementioned lymph nodes on the contralateral side. 3. Mild asymmetric focal uptake at the left adrenal gland is seen, of uncertain significance; no CT correlate is evident. Other: Mild sigmoid diverticulosis. Degenerative changes of the spine. Please note the low-dose CT scan was performed to facilitate PET image reconstr uction and anatomic localization and does not replace a diagnostic CT. Any diagnostic CT requested and performed at the time of the PET will be reported separately. Reading Location: [place] [id number]
== END 2025-03-02 23:59 | disposition home or self-care (01) ==
PROVIDERS: PCP Internal Medicine; Referring Provider Internal Medicine; Visit Provider Internal Medicine
DX: D3A.00 Benign carcinoid tumor of unspecified site (principal); Z85.060 Personal history of malignant carcinoid tumor of small intestine; R11.2 Nausea with vomiting, unspecified; R10.9 Unspecified abdominal pain; R19.7 Diarrhea, unspecified; E86.0 Dehydration
CPT/HCPCS: 78815; A9587

== ENCOUNTER → 2025-03-04 | Outpatient (CLI) | payer MEDICARE, SELFPAY | END | disposition home or self-care (01) | LOC: LAB 09:47 | PROVIDERS: PCP Internal Medicine; Referring Provider Internal Medicine; Visit Provider Internal Medicine | DX: Z00.00 Encounter for general adult medical examination without abnormal findings (principal) ==

== ENCOUNTER 2025-03-09 07:29 | Outpatient (CLI) | payer MEDICARE, SELFPAY ==
--- OUTSIDE RECORDS SUMMARY | 2025-03-09 07:36 | XMS RPT_ITS | CCD ---
Author Organization [facility] Care Team Providers Care Lab Aid Name Role Phone Dr. Cheikh Pinto Primary Care Provider Dr. Cheikh Pinto Attending Provider [phone] Cheikh Pinto MD Primary Care Provider [phone] Dr. Cheikh Pinto Primary Care Provider Dr. Cheikh Pinto Attending Provider Dr. Cheikh Pinto Primary Care Provider Dr. Cheikh Pinto Attending Provider Cheikh Pinto MD Primary Care Provider [phone] MATT KAT Attending Unavailable CHEIKH PINTO Primary Care Unavailable BINA OVERTON Referring Unavailable Dr. Cheikh Pinto MD Primary Care Provider [phone] Dr. Cheikh Pinto MD Attending Provider THERESA MATTHEWS Attending Unavailable THERESA MATTHEWS Admitting Unavailable SHYANNE SANCHEZ Consulting Unavailable ESTEBAN FINLEY Referring Unavailable CHEIKH PINTO Primary Care Unavailable Lázaro Bermeo Attending Unavailable Cheikh Pinto Primary Care Unavailable Cheikh Pinto Attending Unavailable Cheikh Pinto Primary Care Unavailable Cheikh Pinto Attending Unavailable Cheikh Pinto Primary Care Unavailable Vaishali Ren Consulting Unavailable Cheikh Pinto Primary Care Unavailable Vaishali Ren Admitting Unavailable Rm, Cathleen Humera Attending Unavailable Rm, Cathleen Humera Consulting Unavailable Vaishali Ren Attending Unavailable Cheikh Pinto Attending Unavailable Judi, Cheikh Primary Care Unavailable Judi, Cheikh Attending Unavailable Judi, Cheikh Primary Care Unavailable Vaishali Ren Consulting Unavailable Vaishali Ren Admitting Unavailable RmCathleen Humera Attending Unavailable Judi, Cheikh Primary Care Unavailable Judi, Cheikh Attending Unavailable Judi, Cheikh Referring Unavailable Judi, Cheikh Primary Care Unavailable JUDI, CHEIKH M Referring Unavailable RENATA LOOMIS DO Primary Care Unavailable RENATA LOOMIS DO Admitting Unavailable RENATA LOOMIS DO Attending Unavailable JUDI, CHEIKH M Consulting Unavailable PROVIDER, UNKNOWN Consulting Unavailable JUDI, CHEIKH M Consulting Unavailable JUDI, CHEIKH M Referring Unavailable CANTU, RAHUL C Attending Unavailable CANTU, RAHUL C Primary Care Unavailable CANTU, RAHUL C Admitting Unavailable PROVIDER, UNKNOWN Consulting Unavailable JUDI, CHEIKH M Consulting Unavailable JUDI, CHEIKH M Referring Unavailable RENATA LOOMIS DO Attending Unavailable RENATA LOOMIS DO Primary Care Unavailable RENATA LOOMIS DO Admitting Unavailable PROVIDER, UNKNOWN Consulting Unavailable JUDI, CHEIKH M Referring Unavailable CANTU, RAHUL C Admitting Unavailable CANTU, RAHUL C Attending Unavailable CANTU, RAHUL C Primary Care Unavailable JUDI, CHEIKH M Consulting Unavailable PROVIDER, UNKNOWN Consulting Unavailable JUDI, CHEIKH M Consulting Unavailable JUDI, CHEIKH M Referring Unavailable CRYSTAL TAO MD Admitting Unavailable CRYSTAL TAO MD Attending Unavailable CRYSTAL TAO MD Primary Care Unavailable PROVIDER, UNKNOWN Consulting Unavailable JOSEERWIN E Admitting Unavailable JOSEERWIN Attending Unavailable JUDI, CHEIKH M Consulting Unavailable JUDI, CHEIKH M Referring Unavailable JOSE, ERWIN E Primary Care Unavailable PROVIDER, UNKNOWN Consulting Unavailable JUDI, CHEIKH M Referring Unavailable BOAZ MEHTA MD Admitting Unavailable BOAZ MEHTA MD Attending Unavailable BOAZ MEHTA MD Primary Care Unavailable JUDI, CHEIKH M Consulting Unavailable PROVIDER, UNKNOWN Consulting Unavailable JUDI, CHEIKH M Referring Unavailable JOSE, ERWIN E Admitting Unavailable JUDI, CHEIKH M Consulting Unavailable JOSE, ERWIN E Primary Care Unavailable JOSEERWIN Attending Unavailable PROVIDER, UNKNOWN Consulting Unavailable JOSEERWIN Attending Unavailable JOSE, ERWIN E Admitting Unavailable JUDI, CHEIKH M Consulting Unavailable JUDI, CHEIKH M Referring Unavailable JOSE, ERWIN E Primary Care Unavailable PROVIDER, UNKNOWN Consulting Unavailable JUDI, CHEIKH M Referring Unavailable RENATA LOOMIS DO Primary Care Unavailable RENATA LOOMIS DO Admitting Unavailable DIDRENATA GUTIERREZ DO Attending Unavailable JUDI, CHEIKH M Consulting Unavailable PROVIDER, UNKNOWN Consulting Unavailable JUDI, CHEIKH M Consulting Unavailable JUDI, CHEIKH M Referring Unavailable RENATA LOOMIS DO Primary Care Unavailable DIDRENATA GUTIERREZ DO Admitting Unavailable DIDRENATA GUTIERREZ DO Attending Unavailable PROVIDER, UNKNOWN Consulting Unavailable JUDI, CHEIKH M Consulting Unavailable CRYSTAL TAO MD Attending Unavailable CRYSTAL TAO MD Primary Care Unavailable CRYSTAL TAO MD Admitting Unavailable PROVIDER, UNKNOWN Consulting Unavailable JUDI, CHEIKH M Consulting Unavailable JUDI, CHEIKH M Referring Unavailable RAHUL CANTU Attending Unavailable RAHUL CANTU Primary Care Unavailable RAHUL CANTU Admitting Unavailable PROVIDER, UNKNOWN Consulting Unavailable JUDI, CHEIKH M Consulting Unavailable JUDI, CHEIKH M Referring Unavailable CSERNYIK, LÁZARO DO Admitting Unavailable CSERNYIK, LÁZARO DO Attending Unavailable CSERNYIK, LÁZARO DO Primary Care Unavailable PROVIDER, UNKNOWN Consulting Unavailable CAN MORAES DO Admitting Unavailable CAN MORAES DO Attending Unavailable CAN MORAES DO Primary Care Unavailable JUDI, CHEIKH M Referring Unavailable JUDI, CHEIKH M Consulting Unavailable PROVIDER, UNKNOWN Consulting Unavailable JUDI, CHEIKH M Consulting Unavailable JUDI, CHEIKH M Referring Unavailable CSERNYIK, LÁZARO DO Primary Care Unavailable CSERNYIK, LÁZARO DO Admitting Unavailable CSERNYIK, LÁZARO DO Attending Unavailable PROVIDER, UNKNOWN Consulting Unavailable JUDI, CHEIKH M Consulting Unavailable JUDI, CHEIKH M Referring Unavailable JOSE, ERWIN E Attending Unavailable JOSE, ERWIN E Admitting Unavailable JOSE, ERWIN E Primary Care Unavailable PROVIDER, UNKNOWN Consulting Unavailable JOSE, ERWIN E Attending Unavailable JUDI, CHEIKH M Referring Unavailable JUDI, CHEIKH M Consulting Unavailable JOSE, ERWIN E Admitting Unavailable JOSE, ERWIN E Primary Care Unavailable PROVIDER, UNKNOWN Consulting Unavailable JUDI, CHEIKH M Consulting Unavailable JUDI, CHEIKH M Referring Unavailable JOSE, ERWIN E Attending Unavailable JOSE, ERWIN E Admitting Unavailable JOSE, ERWIN E Primary Care Unavailable PROVIDER, UNKNOWN Consulting Unavailable ESTEBAN FINLEY DO Attending Unavailable ESTEBAN FINLEY DO Primary Care Unavailable ESTEBAN FINLEY DO Admitting Unavailable JUDI, CHEIKH M Consulting Unavailable JUDI, CHEIKH M Referring Unavailable PROVIDER, UNKNOWN Consulting Unavailable JUDI, CHEIKH M Consulting Unavailable ESTEBAN FINLEY DO Attending Unavailable ESTEBAN FINLEY DO Primary Care Unavailable OMESTEBAN BRANCH DO Admitting Unavailable JUDI, CHEIKH M Referring Unavailable PROVIDER, UNKNOWN Consulting Unavailable JUDI, CHEIKH M Referring Unavailable JOSE, ERWIN E Admitting Unavailable JUDI, CHEIKH M Consulting Unavailable JOSE, ERWIN E Primary Care Unavailable JOSE, ERWIN E Attending Unavailable PROVIDER, UNKNOWN Consulting Unavailable RENATA LOOMIS DO Attending Unavailable RENATA LOOMIS DO Primary Care Unavailable RENATA LOOMIS DO Admitting Unavailable JUDI, CHEIKH M Consulting Unavailable JUDI, CHEIKH M Referring Unavailable PROVIDER, UNKNOWN Consulting Unavailable JENNY PINTOEN M Consulting Unavailable CHEIKH PINTO M Referring Unavailable KEARA DIAZ MD Admitting Unavailable KEARA DIAZ MD Attending Unavailable KEARA DIAZ MD Primary Care Unavailable PROVIDER, UNKNOWN Consulting Unavailable JUDIJENNY CUIEN M Consulting Unavailable JENNY PINTOEN M Primary Care Unavailable JENNY PINTOEN M Admitting Unavailable CHEIKH PINTO M Attending Unavailable PROVIDER, UNKNOWN Consulting Unavailable JENNY PINTOEN M Consulting Unavailable JUDI, CHEIKH M Admitting Unavailable JENNY PINTOEN M Attending Unavailable JENNY PINTOEN M Primary Care Unavailable PROVIDER, UNKNOWN Consulting Unavailable ESTEBAN FINLEY DO Admitting Unavailable ESTEBAN FINLEY DO Attending Unavailable ESTEBAN FINLEY DO Primary Care Unavailable JUDI, CHEIKH M Consulting Unavailable JUDI, CHEIKH M Referring Unavailable PROVIDER, UNKNOWN Consulting Unavailable JENNY PINTOEN M Consulting Unavailable KEARA DIAZ MD Primary Care Unavailable KEARA DIAZ MD Admitting Unavailable KEARA DIAZ MD Attending Unavailable CHEIKH PINTO Referring Unavailable PROVIDER, UNKNOWN Consulting Unavailable CHEIKH PINTO Attending Unavailable JUDI, CHEIKH M Admitting Unavailable JUDI, CHEIKH M Primary Care Unavailable JUDI, CHEIKH M Consulting Unavailable PROVIDER, UNKNOWN Consulting Unavailable JUDI, CHEIKH M Consulting Unavailable JUDI, CHEIKH M Referring Unavailable RENATA LOOMIS DO Primary Care Unavailable RENATA LOOMIS DO Admitting Unavailable RENATA LOOMIS DO Attending Unavailable PROVIDER, UNKNOWN Consulting Unavailable CHEIKH PINTO Referring Unavailable RENATA LOOMIS DO Primary Care Unavailable RENATA LOOMIS DO Admitting Unavailable RENATA LOOMIS DO Attending Unavailable CHEIKH PINTO Consulting Unavailable PROVIDER, UNKNOWN Consulting Unavailable CHEIKH PINTO Primary Care Unavailable BRENT CANTU Attending Unavailable Judi JUNIOR, Dr. Hollingsworth Primary Care Physician Judi JUNIOR, Dr. Hollingsworth Attending Physician Allergies Allergy Classification Reported Allergen(s) Allergy Type Date of Onset Reaction(s) Facility (20 sources) Aspirin; Translations: [ASPIRIN] Drug Allergy 08-29-19 13 Other: See Comments [facility] (20 sources) Sulfamethoxazole; Translations: [SULFAMETHOXAZOLE] Drug Allergy 02-27-20 13 Swelling [facility] (9 sources) Trimethoprim Drug Allergy 01-25-20 21 [facility] (14 sources) Sulfonamides (Antibiotic); Translations: [SULFA (SULFONAMIDE ANTIBIOTICS)] Drug Allergy 05-28-19 14 [facility] (7 sources) Sulfonamides (Antibiotic) Allergy to substance 11-11-19 23 [facility] (1 source) Aspirin Drug Allergy 02-04-20 25 [facility] (1 source) Sulfamethoxazole Drug Allergy 02-04-20 25 [facility] (1 source) Sulfonamides (Antibiotic) Drug allergy (disorder) 02-04-20 25 [facility] (1 source) Trimethoprim Drug Allergy 02-04-20 25 [facility] (1 source) Aspirin Drug Allergy [facility] (1 source) Sulfamethoxazole / Trimethoprim Drug Allergy [facility] (1 source) Sulfonamides (Antibiotic) Drug allergy (disorder) [facility] Medications Current Medications Medication Drug Class(es) Dates Sig (Normalized) Sig (Original) B Complex Vitamins capsule (11 sources) take 1 capsule by mo uth once daily before breakfast B Complex Vitamins capsule Take 1 capsule by mouth daily before breakfast. Active take 1 capsule by mo uth once daily before breakfast B Complex Vitamins capsule Take 1 capsul e by mouth daily before breakfast. 0 Active Comment on above: Take 1 capsule by mo uth daily before breakfast. brain sync tablet (3 sources) Start: 02-24-2024 take 1 tablet by mouth once daily brain sync tablet Active PO DAILY February 24, 2024 12:00am Complies with drug therapy Start: 02-24-2024 take 1 tablet by mouth once da huey brain sync tablet Active PO DAILY February 24, 2024 1:00am cetirizine hydrochloride 5 mg oral tablet (14 sources) Histamine-1 Receptor Antagonist Start: 02-24-2024 take 1 tablet by mouth once daily as needed Cetirizine 5 mg tablet Active 5 mg PO daily as needed February 24, 2024 12:00am Complies with drug therapy Start: 08-28-2012 take 1 tablet by brian th once daily cetirizine (ZYRTEC) 10 mg tablet Indications: Allergic rhinitis Take 1 tablet by mouth once daily. 0 08/28/2012 Active Comment on above: Take 1 tablet by brian th once daily. cholecalciferol 0.025 mg oral capsule (14 sources) Vitamin D Start: 01-23-20 take 1 capsule by mouth once daily Cholecalciferol (Vitamin D3) 25 mcg (1,000 unit) capsule Active 25 ug PO daily January 22, 2024 11:00pm Complies with drug therapy Cholecalciferol, Vitamin D3, (VITAMIN D-3) 50 mcg (2,000 unit) cap Take by mouth. Active Comment on above: Take by mouth. Digestive Enzymes tablet (3 sources) Start: 02-24-2024 take 1 tablet by mouth once daily Digestive Enzymes tablet Active 1 {tbl} PO daily February 24, 2024 12:00am Complies with drug therapy Start: 02-24-2024 take 1 tablet by brian th once daily Digestive Enzymes tablet Active 1 {tbl} PO daily February 24, 2024 1:00am diphenhydrAMINE (1 source) Histamine-1 Receptor Antagonist diphenhydramine HCl (BENADRYL ALLERGY PO) Take by mouth. Active ergocalciferol 0.01 mg oral tablet (3 sources) Provitamin D2 Compound Start: 025 Ergocalciferol (Vitamin D2) 10 mcg (400 unit) tablet Active 10 ug PO daily October 18, 2024 11:00pm Complies with drug therapy loperamide hydrochloride 2 mg oral capsule (1 source) Opioid Agonist Start: 025 take 1 capsule by mouth every six hours as needed Loperamide 2 mg capsule Active 2 mg PO EVERY 6 HOURS as needed February 02, 2025 11:00pm Complies with drug therapy melatonin 5 mg oral capsule (7 sources) Start: 023 take 1 capsule by mouth once daily Melatonin 5 mg capsule Active 5 mg PO DAILY October 24, 2022 11:00pm Complies with drug therapy Start: 10-25-2022 Melatonin Acti ve MG PO October 25, 2022 12:00am ondansetron 4 mg disintegrating oral tablet (12 sources) Serotonin-3 Receptor Antagonist Start: 02-20-2024 take 1 tablet by mouth every eight hours as needed for nausea Ondansetron 4 mg tablet,disintegrating Active 4 mg PO EVERY 8 HOURS NEEDED as needed for Nausea February 20, 2024 12:00am Complies with drug therapy Start: 08-08-2023 End: 02-17-2024 take 1 tablet by mouth every eight hours as needed Ondansetron 4 mg tablet,disintegrating Discontinued 4 mg PO EVERY 8 HOURS as needed August 07, 2023 11:00pm February 17, 2024 4:56pm Start: 03-12-2014 End: 09-11-2022 take 1 tablet by mouth every eight hours as needed ondansetron orally disintegrating (ZOFRA N ODT) 4 mg disintegrating tablet Take 1 tablet by mouth every 8 hours as needed for Nausea/Vomiting. 10 tablet 0 03/12/2014 09/11/2022 Discontinued End: 12-29-2024 ondansetron (ZOFRAN) 4 mg ta blet Take by mouth every 8 hours as needed for nausea/vomiting. 12/29/2024 Discontinued Comment on above: Take 1 tablet by brian th every 8 hours as needed for Nausea/Vomiting. pantoprazole 20 mg delayed release oral tablet (20 sources) Proton Pump Inhibitor Start: 08-08-19 End: 02-17-20 take 1 tablet by mouth four times daily Pantoprazole 20 mg tablet,delayed release (DR/EC) Active 20 mg PO 4 times daily February 17, 2024 12:00am Complies with drug therapy Start: 11-03-2019 End: 08-08-2023 take 1 tablet by mouth three times daily Pantoprazole 20 mg tablet,delayed release (DR/EC) Discontinued 20 mg PO THREE TIMES A DAY 90 November 13, 2021 11:53am November 14, 2022 1:15pm Start: 08-25-2018 take 1 tablet by brian th once daily in the evening pantoprazole DR (PROTONIX) 20 mg tablet Take 20 mg by mouth every evening. 3 08/25/2018 Active Comment on above: Take 20 mg by mouth every evening. phenazopyridine hydrochloride 100 mg oral tablet (1 source) Start: 11-25-19 15 End: 09-12-19 23 take 1 tablet by mouth every eight hours as needed phenazopyridine (PYRIDIUM) 100 mg tablet Take 1 tablet by mouth three times daily as needed. 6 tablet 0 11/24/2014 09/11/2022 Discontinued Comment on above: Take 1 tablet by brian th three times daily as needed. polyethylene glycol 3350 09194 mg powder for oral solution (1 source) Osmotic Laxative Start: 02-04-20 25 Polyethylene Glycol 3350 (Miralax) 17 gram/dose powder Active 4 g PO ONCE February 02, 2025 11:00pm Complies with drug therapy potassium iodide 65 mg oral tablet (3 sources) Start: 02-17-20 24 Potassium Iodide 65 mg tablet Active 130 mg PO DAILY February 17, 2024 12:00am Complies with drug therapy psyllium 400 mg oral capsule (1 source) Start: 02-04-20 25 Psyllium Husk (Metamucil) 0.4 gram capsule Active 0.4 g PO ONCE February 02, 2025 11:00pm Complies with drug therapy Vitamin B Complex tablet (6 sources) Start: 02-24-20 24 Vitamin B Complex tablet Active 1 {tbl} PO daily February 24, 2024 12:00am Complies with drug therapy Start: 02-24-2024 Vitamin B Comp yoan tablet Active 1 {tbl} PO daily February 24, 2024 1:00am Start: 01-23-2024 End: 02-17-2024 Vitamin B Complex tablet Dis continued 1 {tbl} PO daily January 22, 2024 11:00pm February 17, 2024 4:55pm Start: 01-23-2024 End: 02-17-2024 Vitamin B Complex tablet Dis continued 1 {tbl} PO daily January 23, 2024 12:00am February 17, 2024 5:55pm Completed/Discontinued Medications Medication Drug Class(es) Dates Sig (Normalized) Sig (Original) amoxicillin 500 mg / clavulanate 125 mg oral tablet (8 sources) Penicillin-class Antibacterial Start: 02-12-2022 End: 05-16-2022 Amoxicillin-Pot Clavulanate (Augmentin) 500-125 mg tablet Discontinued 1 {tbl} PO Q8H 15 0 February 11, 2022 11:00pm May 16, 2022 2:52pm atropine sulfate 0.025 mg / diphenoxylate hydrochloride 2.5 mg oral tablet (8 sources) Anticholinergic, Cholinergic Muscarinic Antagonist, Antidiarrheal Start: 05-16-2022 End: 08-08-2023 Diphenoxylate-Atro pine 2.5-0.025 mg tablet Discontinued 1 {tbl} PO TWICE A DAY as needed for diarrhea 04 05May 16, 2022 12:00am August 08, 2023 1:00pm Start: 05-16-2022 End: 08-08-2023 take 1 tablet by mouth twice daily Diphenoxylate-Atropine Discontinued 1 TABLET PO TWICE A DAY May 16, 2022 1:00am August 08, 2023 2:00pm calcium chloride 0.0014 meq/ml / potassium chloride 0.004 meq/ml / sodium chloride 0.103 meq/ml / sodium lactate 0.028 meq/ml injectable solution (2 sources) Start: 10-16-2023 End: 10-17-2023 lactated ringers iv infusion cephalexin 500 mg oral capsule (20 sources) Cephalosporin Antibacterial Start: 10-19-2024 End: 12-21-2024 take 1 capsule by mouth every eight hours Cephalexin 500 mg capsule Discontinued 500 mg PO Q8H 21 7 1 October 19, 2024 2:15pm December 21, 2024 9:58am Start: 09-29-2024 End: 10-06-2024 take 1 capsule by mouth every eight hours Cephalexin 500 mg capsule Discontinued 500 mg PO Q8H 21 7 0 September 29, 2024 3:29pm October 04, 2024 11:00pm October 05, 2024 11:07pm Start: 08-08-2023 End: 01-23-2024 take 1 capsule by mouth every eight hours Cephalexin 500 mg capsule Discontinued 500 mg PO Q8H 30 August 08, 2023 1:32pm January 23, 2024 1:20pm Start: 05-16-2022 End: 11-14-2022 take 1 capsule by mouth every eight hours Cephalexin 500 mg capsule Discontinued 500 mg PO Q8H 30 0 October 25, 2022 3:01pm November 14, 2022 12:05pm ciprofloxacin 500 mg oral tablet (11 sources) Quinolone Antimicrobial End: 12-29-2024 ciprofloxacin HCl (CIPRO) 500 mg tablet Take 250 mg by mouth twice daily. 12/29/2024 Discontinued Comment on above: Take 250 mg by mouth twice daily. cogniforce capsule (3 sources) Start: 01-23-2024 End: 02-17-2024 take 1 capsule by mouth once daily cogniforce capsule Discontinued PO DAILY January 22, 2024 11:00pm February 17, 2024 4:56pm Start: 01-23-2024 End: 02-17-2024 take 1 capsule by mouth once daily cogniforce capsule Discontinued PO DAILY January 23, 2024 12:00am February 17, 2024 5:56pm D-MANNOSE ORAL (11 sources) End: 12-29-2024 take 1000 mg by mouth twice daily D-MANNOSE ORAL Take 1,000 mg by mouth twice daily. 12/29/2024 Discontinued take 1000 mg by mouth twice mahesh y D-MANNOSE ORAL Take 1,000 mg by mouth twice daily. Active take 1000 mg by mouth twice mahesh y D-MANNOSE ORAL Take 1,000 mg by mouth twice daily. 0 Active Comment on above: Take 1,000 mg by brian th twice daily. lactobacillus rhamnosus gg [id number] unt oral capsule (11 sources) Start: 08-29-19 End: 12-30-19 take 1 capsule by mouth once daily lactobacillus rhamnosus R0011 (PROBIOTIC DIGESTIVE CARE) 20 billion cell cap Take 1 Can by mouth once daily. 0 08/28/2012 12/29/2024 Discontinued Comment on above: Take 1 Can by mouth once daily. levocetirizine dihydrochloride 5 mg oral tablet (12 sources) Histamine-1 Receptor Antagonist Start: 01-23-20 24 End: 02-17-20 24 take 1 tablet by mouth once daily Levocetirizine 5 mg tablet Discontinued 5 mg PO daily January 23, 2024 1:20pm February 17, 2024 4:54pm Start: 11-03-2019 End: 01-23-2024 take 1 tablet by mouth every other day Levocetirizine 5 mg tablet Discontinued 5 mg PO every other day November 02, 2019 11:00pm January 23, 2024 1:28pm levothyroxine sodium 0.088 mg oral tablet (20 sources) l-Thyroxine Start: 07-27-2020 End: 07-06-2024 take 1 tablet by mouth once daily Levothyroxine 88 mcg tablet Discontinued 88 ug PO DAILY 90 3 July 05, 2023 12:12pm July 06, 2024 1:59pm Start: 11-03-2019 End: 02-03-2020 take 1 capsule by mouth once daily Levothyroxine 75 mcg capsule Discontinued 75 ug PO DAILY November 02, 2019 11:00pm February 03, 2020 3:09pm Start: 11-09-2018 End: 12-29-2024 take 1 tablet by mouth once daily Levothyroxine 75 mcg tablet Discontinued 75 ug PO DAILY 90 3 November 02, 2019 11:00pm July 27, 2020 7:07am Comment on above: Take 1 tablet by brian th DAILY (6 AM). Take 88 mcg by mouth daily before breakfast. loratadine 10 mg oral tablet (9 sources) Start: 11-03-19 End: 05-16-19 take 1 tablet by mouth once daily Loratadine 10 mg tablet Discontinued 10 mg PO DAILY November 02, 2019 11:00pm May 16, 2022 2:53pm metoclopramide 10 mg oral tablet (7 sources) Dopamine-2 Receptor Antagonist Start: 11-11-19 End: 01-23-20 take 1 tablet by mouth every six hours as needed for nausea and vomiting Metoclopramide Hcl 10 mg tablet Discontinued 10 mg PO EVERY 6 HOURS as needed for nausea and vomiting November 10, 2022 5:32am January 23, 2024 1:21pm multivit/iron/FA/K/her b no.244 (ALIVE WOMEN'S ENERGY ORAL) (11 sources) End: 12-30-19 take 2 capsules by mouth once daily multivit/iron/FA/K/he rb no.244 (ALIVE WOMEN'S ENERGY ORAL) Take 2 capsules by mouth once daily. 12/29/2024 Discontinued take 2 capsules by m outh once daily multivit/iron/FA/K/herb no.244 (ALIVE WO MEN'S ENERGY ORAL) Take 2 capsules by mouth once daily. Active take 2 capsules by m outh once daily multivit/iron/FA/K/herb no.244 (ALIVE WO MEN'S ENERGY ORAL) Take 2 capsules by mouth once daily. 0 Active Comment on above: Take 2 capsules by m outh once daily. Multivitamins-Iron (DAILY MULTI-VITAMINS/IRO N) tab (11 sources) Start: 03-12-2014 End: 12-29-2024 take 1 tablet by mouth twice daily Multivitamins-Iron (DAILY MULTI-VITAMINS/IRON) tab Take 1 tablet by mouth twice daily. 0 03/12/2014 12/29/2024 Discontinued Start: 03-12-2014 take 1 tablet by brian th twice daily Multivitamins-Iron (DAILY MULTI-VITAMINS/IRON) tab Take 1 tablet by mouth twice daily. 0 03/12/2014 Active Comment on above: Take 1 tablet by brian th twice daily. [place]-3 Fatty Acids 500 mg cap (11 sources) End: 12-29-2024 take 1 capsule by mouth once daily [place]-3 Fatty Acids 500 mg cap Take 500 mg by mouth once daily. 12/29/2024 Discontinued take 1 capsule by mouth once lucia ly [place]-3 Fatty Acids 500 mg cap Take 500 mg by mouth once daily. Active take 1 capsule by mouth once lucia ly [place]-3 Fatty Acids 500 mg cap Take 500 mg by mouth once daily. 0 Active Comment on above: Take 500 mg by mouth once daily. [place]-3 Fatty Acids-Fish Oil (Fish Oil) 300-500 mg capsule (3 sources) Start: 02-24-2024 End: 10-19-2024 [place]-3 Fatty Acids-Fish Oil (Fish Oil) 300-500 mg capsule Discontinued NMA PO February 24, 2024 12:00am October 19, 2024 1:06pm Start: 02-24-2024 End: 10-19-2024 [place]-3 Fatty Acids-Fish Oil (Fish Oil) 300-500 mg capsule Discontinued NMA PO February 24, 2024 1:00am October 19, 2024 2:06pm oxymetazoline hydrochloride 0.5 mg/ml nasal spray (11 sources) End: 12-29-2024 oxymetazoline (AFRIN, OXYMETAZOLINE,) 0.05 % nasal spray Use 2 Sprays in the nose as needed. 12/29/2024 Discontinued Comment on above: Use 2 Sprays in the nose as needed. papaya enzyme complex (3 sources) Start: 01-23-2024 End: 02-17-2024 papaya enzyme complex Discontinued PO DAILY January 22, 2024 11:00pm February 17, 2024 4:55pm Start: 01-23-2024 End: 02-17-2024 papaya enzyme complex Discon tinued PO DAILY January 23, 2024 12:00am February 17, 2024 5:55pm microencapsulated potassium chloride 20 meq extended release oral tablet (15 sources) Start: 08-08-2023 End: 02-17-2024 take 1 tablet by mouth once daily Potassium Chloride 20 mEq tablet,ER particles/crystals Discontinued 20 meq PO daily August 07, 2023 11:00pm February 17, 2024 4:55pm Start: 10-31-2022 End: 11-14-2022 take 40 mEq by mouth once daily Potassium Chloride 40 mEq/15 mL liquid Discontinued 40 meq PO DAILY 45 3 0 October 30, 2022 11:00pm November 14, 2022 12:05pm take 1 tablet by brian th twice daily potassium chloride (K-TAB) 10 mEq tablet Take 10 mEq by mouth two times a day. Active promethazine hydrochloride 12.5 mg rectal suppository (20 sources) Phenothiazine Start: 02-07-2024 End: 02-17-2024 Promethazine 12.5 mg suppository Discontinued 25 mg RC EVERY 6 HOURS as needed for nausea and vomiting 03 15February 06, 2024 11:00pm February 17, 2024 4:55pm Start: 03-20-2021 End: 08-08-2023 Promethazine 12.5 mg supposi tory Discontinued 12.5 mg RC EVERY 6 HOURS as needed for nausea and vomiting 03 15January 09, 2023 11:35am August 08, 2023 12:59pm Start: 11-04-2019 End: 08-08-2023 take 1 tablet by mouth twice daily as needed for nausea and vomiting Promethazine 25 mg tablet Discontinued 25 mg PO TWICE A DAY as needed for nausea and vomiting 30 May 16, 2022 5:07pm August 08, 2023 12:59pm take 1 tablet by brian th every eight hours as needed promethazine (PHENERGAN) 12.5 mg tablet Take 12.5 mg by mouth every 8 hours as needed for nausea/vomiting. Active Comment on above: Take 12.5 mg by mout h every 8 hours as needed for Nausea/Vomiting. Promethazine 12.5 mg suppository (2 sources) Start: 02-07-20 End: 02-17-20 Promethazine 12.5 mg suppository Discontinued 25 mg RC EVERY 6 HOURS as needed for nausea and vomiting 12 February 07, 2024 12:00am February 17, 2024 5:55pm prucalopride 2 mg oral tablet (20 sources) Start: 11-03-19 End: 05-25-19 take 1 tablet by mouth once daily Prucalopride (Motegrity) 2 mg tablet Discontinued 2 mg PO DAILY January 09, 2024 1:24pm May 25, 2024 3:59pm Comment on above: Take 1 tablet (2 mg) by mouth once daily. 72 hr scopolamine 0.0139 mg/hr transdermal system (11 sources) Anticholinergic Start: 07-08-19 End: 12-30-19 TRANSDERM-SCOP 1.5 MG TRANSDERMAL PATCH (1 MG OVER 3 DAYS) 0 07/07/2018 12/29/2024 Discontinued tenapanor 50 mg oral tablet (3 sources) Start: 09-22-19 End: 12-05-19 take 1 tablet by mouth twice daily tenapanor (IBSRELA) 50 mg tablet Indications: Irritable bowel syndrome with constipation Take 1 tablet (50 mg) by mouth twice daily. 60 tablet 5 09/21/2022 12/04/2022 Discontinued Comment on above: Take 1 tablet (50 mg ) by mouth twice daily. Problems Active Problems Problem Classification Problem Date Documented Da te Episodic/Chronic Abdominal hernia (2 sources) Hiatal hernia; Translations: [Diaphragmatic hernia without obstruction or gangrene] Onset: 5 12-29-2024 Episodic Abdominal pain (9 sources) Abdominal pain; Translations: [Unspecified abdominal pain] Onset: 5 02-28-2024 Episodic Acute and unspecified renal failure (5 sources) Acute renal failure syndrome; Translations: [Acute kidney failure, unspecified] Onset: 9 Resolved: 9 11-08-2018 Episodic Allergic reactions (4 sources) Allergy status to analgesic agent status; Translations: [Allergy status to sulfonamides status] Onset: 5 Episodic Cancer; other and unspecified primary (6 sources) History of malignant carcinoid tumor of small intestine; Translations: [Personal history of malignant carcinoid tumor of small intestine] 02-03-2020 Episodic Cancer; other and unspecified primary (13 sources) Personal history of malignant carcinoid tumor of small intestine; Translations: [Personal history of malignant neoplasm of other gastrointestinal tract] Onset: 5 05-16-2022 Episodic Cancer; other and unspecified primary (1 source) History of neuroendocrine malignant neoplasm; Translations: [Personal history of malignant neoplasm, unspecified] 12-04-2022 Episodic Disorders of lipid metabolism (11 sources) Hypercholesterolemia; Translations: [Pure hypercholesterolemia, unspecified] Onset: 3 08-28-2012 Chronic Diverticulosis and diverticulitis (11 sources) Diverticulitis of intestine; Translations: [Diverticulitis of intestine, part unspecified, without perforation or abscess without bleeding] 02-12-2022 Chronic Esophageal disorders (11 sources) Gastroesophageal reflux disease; Translations: [Gastro-esophageal reflux disease without esophagitis] Onset: 3 11-08-2018 Chronic Fluid and electrolyte disorders (17 sources) Dehydration; Translations: [Dehydration] Onset: 5 11-09-2022 Episodic Nausea and vomiting (20 sources) Nausea and vomiting; Translations: [Nausea with vomiting, unspecified] Onset: 5 Resolved: 9 Episodic Nutritional deficiencies (12 sources) Undernutrition; Translations: [Mild protein-calorie malnutrition] Onset: 9 11-08-2018 Chronic Other aftercare (1 source) Other intermediate (current) drug therapy; Translations: [Other intermediate (current) drug therapy] Onset: 5 Episodic Other disorders of stomach and duodenum (13 sources) Gastroparesis syndrome; Translations: [Gastroparesis] 02-03-2020 Episodic Other disorders of stomach and duodenum (13 sources) Gastroparesis; Translations: [Gastroparesis] Onset: 5 02-12-2022 Episodic Other gastrointestinal disorders (2 sources) Constipation; Translations: [Constipation, unspecified] Episodic Other gastrointestinal disorders (9 sources) Dysphagia; Translations: [Dysphagia, unspecified] Onset: 4 08-08-2023 Episodic Other gastrointestinal disorders (1 source) Dysphagia, unspecified; Translations: [Dysphagia, unspecified type] Onset: 4 Episodic Other gastrointestinal disorders (1 source) Diarrhea, unspecified; Translations: [Diarrhea, unspecified] Onset: 5 Episodic Other liver diseases (6 sources) High lipase level in serum; Translations: [Abnormal levels of other serum enzymes] 11-14-2022 Episodic Other liver diseases (2 sources) Abnormal levels of other serum enzymes; Translations: [Other nonspecific abnormal serum enzyme levels] 11-14-2022 Episodic Other screening for suspected conditions (not mental disorders or infectious disease) (3 sources) Serum creatinine raised; Translations: [Other specified abnormal findings of blood chemistry] 08-18-2024 Episodic Other upper respiratory disease (11 sources) Allergic rhinitis; Translations: [Allergic rhinitis, unspecified] Onset: 3 11-08-2018 Chronic Residual codes; unclassified (1 source) Acquired absence of other genital organ(s); Translations: [Acquired absence of other genital organ(s)] Onset: 5 Episodic Thyroid disorders (20 sources) Acquired hypothyroidism; Translations: [Hypothyroidism, unspecified] Onset: 3 02-03-2020 Chronic Unclassified (2 sources) History of malignant carcinoid tumor of small intestine Unclassified (2 sources) K31.84 - Gastroparesis,Z85.060 - Personal history of malignant carcinoid tumor of small intestine,R11.2 - Nausea with vomiting, unspecified Past or Other Problems Problem Classification Problem Date Documented Da te Episodic/Chronic Immunizations and screening for infectious disease (1 source) Encounter for immunization; Translations: [Encounter for immunization] Onset: 02-24-2024 Episodic Nonspecific chest pain (1 source) Chest pain, unspecified; Translations: [Chest pain, unspecified] Onset: 03-11-2024 Episodic Other gastrointestinal disorders (4 sources) Diarrhea; Translations: [Diarrhea, unspecified] Onset: 11-05-2018 Resolved: 11-08-2018 11-08-2018 Episodic Results Test Name Value Interpretation Reference Range Facility CHROMOGRANIN A [CCL]on 02-18 Chromogranin A 2408.0 ng/mL High <187.0 [facility] Comment on above: Result Comment: The Chromogranin A test was performed using the TellMi CgA II KRYPTORmethod. Results obtained with different assay methods or kits cannot beused interchangeably.[facility] [place], [place] [address]OlazvaIvan III, M.D.[id number] Performed By: #### 2 58218 ####[address] [address] CBC + DIFFon 02-16-2025 Baso # 0.03 x10EE3/UL Normal 0.00 - 0.10 [facility] Comment on above: Performed By: #### 2 63827 ####[facility],[address] [place] [address] 18456 Basophils/100 WBC (Bld) 0.5 % Normal 0.0 - 2.0 [facility] Comment on above: Performed By: #### 2 20876 ####[facility],[address] [place] [address] 52828 CBC + DIFF Normal [facility] Comment on above: Result Comment: CBC- COMPLETE BLOOD COUNT Performed By: #### 2 25510 ####[facility],[address] [place] [address] 96555 EO # 0.27 x10EE3/UL Normal 0.00 - 0.50 [facility] Comment on above: Performed By: #### 2 18346 ####[facility],[address] [place] [address] 90548 Eosinophils/100 WBC (Bld) 5.4 % Normal 0.0 - 7.0 [facility] Comment on above: Performed By: #### 2 00914 ####[facility],[address] [place] [address] Erythrocyte distribution width (RBC) [Ratio] 13.7 % Normal 12.0 - 15.6 [facility] Comment on above: Performed By: #### 2 21061 ####[facility],[address] [place] [address] Hematocrit (Bld) [Volume fraction] 39.1 % Normal 34.0 - 46.0 [facility] Comment on above: Performed By: #### 2 96085 ####[facility],[address] [place] [address] Hemoglobin (Bld) [Mass/Vol] 12.7 g/dL Normal 12.0 - 16.0 [facility] Comment on above: Result Comment: TEST REPEATED Performed By: #### 2 55071 ####[facility],[address] [place] [address] Lymph # 1.20 x10EE3/UL Normal 0.80 - 2.80 [facility] Comment on above: Performed By: #### 2 40824 ####[facility],[address] [place] [address] Lymphocytes/100 WBC (Bld) 24.2 % Normal 20.0 - 45.0 [facility] Comment on above: Performed By: #### 2 80734 ####[facility],[address] [place], [place] [id number] MANUAL DIFF N/A Normal [facility] Comment on above: Performed By: #### 2 73557 ####[place] [address] MCH (RBC) [Entitic mass] 28 pg Normal 27 - 33 [facility] Comment on above: Performed By: #### 2 18716 ####[place] [address] MCHC 33 X10 3 Normal 32 - 36 [facility] Comment on above: Performed By: #### 2 75533 ####[facility],[address] [place], [place] [address] MCV (RBC) [Entitic vol] 86 fL Normal 80 - 99 [facility] Comment on above: Performed By: #### 2 03740 ####[facility],[address] [place] [address] [place] # 0.35 x10EE3/UL Normal 0.20 - 1.00 [facility] Comment on above: Performed By: #### 2 06427 ####[facility],[address] [place] [address] MONOS % 7.0 % Normal 0.0 - 10.0 [facility] Comment on above: Performed By: #### 2 55726 ####[facility],[address] [place] [address] Morphology Julian (Bld) [Interp] N/A Normal [facility] Comment on above: Performed By: #### 2 28295 ####[facility],[address] [place] [address] Neut # 3.13 x10EE3/UL Normal 1.50 - 7.10 [facility] Comment on above: Performed By: #### 2 91161 ####[facility],[address] [place], [place] [address] Neutrophils/100 WBC (Bld) 62.9 % Normal 46.0 - 76.0 [facility] Comment on above: Performed By: #### 2 36248 ####[facility],[address] [place] [address] 95541 PLATELET 222 x10EE3/UL Normal 150 - 450 [facility] Comment on above: Performed By: #### 2 84445 ####[facility],[address] [place] [address] 01606 Platelet mean volume (Bld) [Entitic vol] 8.1 fL Normal 6.6 - 10.5 [facility] Comment on above: Result Comment: AUTO MATED DIFFERENTIAL Performed By: #### 2 69267 ####[facility],[address] [place] [address] 15131 RBC 4.55 x 10EE6/UL Normal 4.10 - 5.30 [facility] Comment on above: Performed By: #### 2 05310 ####[facility],[address] [place] [address] 27886 WBC 5.0 x 10EE3/UL Normal 4.5 - 10.8 [facility] Comment on above: Performed By: #### 2 38929 ####[facility],[address] [place] [address] 88122 CMP with eGFRon 02-16-2025 AGE 75 years Normal [facility] Comment on above: Performed By: #### 2 75390 ####[facility],[address] [place] [address] 35479 Albumin [Mass/Vol] 2.9 g/dL Low 3.4 - 5.0 [facility] Comment on above: Performed By: #### 2 66291 ####[facility],[address] [place] [address] 53668 Albumin/Globulin [Mass ratio] 1.0 {ratio} Normal 0.9 - 1.6 [facility] Comment on above: Performed By: #### 2 71609 ####[facility],[address] [place] [address] 49512 ALK PHOS 82 U/L Normal 46 - 116 [facility] Comment on above: Performed By: #### 2 28072 ####[facility],[address] [place] [address] 53040 ALT [Catalytic activity/Vol] 15 U/L Low 16 - 63 [facility] Comment on above: Performed By: #### 2 45696 ####[facility],[address] [place] [address] 83252 Anion gap [Moles/Vol] 13 mmol/L Normal 10 - 20 [facility] Comment on above: Performed By: #### 2 65298 ####[facility],[address] [place] [address] 38996 AST [Catalytic activity/Vol] 14 U/L Normal 13 - 39 [facility] Comment on above: Performed By: #### 2 24360 ####[facility],[address] [place] [address] 62300 B/C RATIO 12 ratio Normal 0 - 30 [facility] Comment on above: Performed By: #### 2 39026 ####[facility],[address] [place] [address] 40076 Bilirubin [Mass/Vol] 0.3 mg/dL Normal 0.2 - 1.0 [facility] Comment on above: Performed By: #### 2 70015 ####[facility],[address] [place] [address] 69276 Calcium [Mass/Vol] 9.3 mg/dL Normal 8.5 - 10.1 [facility] Comment on above: Result Comment: RESU LTS VERIFIED BY REPEAT ANALYSIS Performed By: #### 2 31559 ####[facility],[address] [place] [address] 88630 Chloride [Moles/Vol] 107 mmol/L Normal 98 - 107 [facility] Comment on above: Performed By: #### 2 57665 ####[facility],[address] [place] [address] 88328 CMP with eGFR Normal [facility] Comment on above: Result Comment: COMP REHENSIVE METABOLIC PANEL Performed By: #### 2 25547 ####[facility],[address] [place] [address] 13094 CO2 [Moles/Vol] 23.8 mmol/L Normal 21.0 - 32.0 [facility] Comment on above: Performed By: #### 2 24726 ####[facility],[address] [place] [address] 14126 Creatinine [Mass/Vol] 0.94 mg/dL Normal 0.55 - 1.02 [facility] Comment on above: Performed By: #### 2 44942 ####[facility],[address] [place] [address] 83388 eGFR 58 ML/MINUTE Low 60 - 999 [facility] Comment on above: Performed By: #### 2 81853 ####[facility],[address] [place] [address] 31919 GFR/1.73 sq M.predicted among non-blacks MDRD (S/P/Bld) [Vol rate/Area] mL/min/{1.73_m2} Normal 60 - 999 [facility] Comment on above: Result Comment: ACCO RDING TO THE NATIONAL KIDNEY DISEASE EDUCATION PROGRAM(NKDE), A NORMAL eGFRIS A VALUE GREATER THAN OR EQUAL TO 60 ML/MIN/1.73 SQ METERS.CHRONIC KIDNEY DISEASE: <60mL/MIN/1.73 SQ METERSKIDNEY FAILURE: <15mL/MIN/1.73 SQ METERSTHIS TEST SHOULD ONLY BE USED FOR PATIENTS 18 YEARS OF AGE AND OLDER. Performed By: #### 2 59865 ####[facility],[address] [place] [address] 20594 Globulin (S) [Mass/Vol] 3.0 g/dL Normal 1.5 - 3.8 [facility] Comment on above: Performed By: #### 2 50327 ####[facility],[address] [place] [address] 67997 Glucose [Mass/Vol] 99 mg/dL Normal 74 - 106 [facility] Comment on above: Performed By: #### 2 56831 ####[facility],[address] [place] [address] 50080 Potassium [Moles/Vol] 4.2 mmol/L Normal 3.5 - 5.1 [facility] Comment on above: Performed By: #### 2 86688 ####[facility],[address] [place] [address] 37629 Protein [Mass/Vol] 5.9 g/dL Low 6.4 - 8.2 [facility] Comment on above: Performed By: #### 2 79842 ####[facility],[address] [place] [address] 28511 Sodium [Moles/Vol] 140 mmol/L Normal 136 - 145 [facility] Comment on above: Performed By: #### 2 50824 ####[facility],[address] [place] [address] 16415 Urea nitrogen [Mass/Vol] 11 mg/dL Normal 7 - 18 [facility] Comment on above: Performed By: #### 2 85313 ####[facility],[address] [place] [address] 78080 MAGNESIUMon 02-16-2025 Magnesium [Mass/Vol] 1.8 mg/dL Normal 1.8 - 2.4 [facility] Comment on above: Performed By: #### 2 87750 ####[facility],[address] [place] [address] 91708 C-REACTIVE PROTEINon 025 CRP 0.09 mg/dl Normal 0.00 - 0.90 [facility] Comment on above: Performed By: #### 2 03504 ####[facility],[address] [place] [address] 09009 CgA SerPl-mCncon 02-15-2025 Chromogranin A [Mass/Vol] 2408.0 ng/mL High <187.0 [facility] Comment on above: Order Comment: Speci men Type: BLOOD SPECIMEN Ordering Facility: [facility] Address: [address] [place] [address] Result Comment: The Chromogranin A test was performed using the Mob Science[employer] CgA II KRYPTOR method. Results obtained with different assay methods or kits cannot be used interchangeably. Performed By: #### 9 811-1 #### [facility] CLIA [id number] [address] [place] [address] [place] ED MED ADMINISTRATION DETAIL on 02-15-2025 ED MED ADMINISTRATION DETAIL Normal [facility] ED NURSES CLINICAL NOTEon ED NURSES CLINICAL NOTE Normal [facility] ED ORDER SHEET (CPOE ONLY)on 02-15-2025 ED ORDER SHEET (CPOE ONLY) Normal [facility] ED PHYSICIAN CLINICAL REPORT on 02-15-2025 ED PHYSICIAN CLINICAL REPORT Normal [facility] ED SUPER BILLon 02-15-2025 ED SUPER BILL Normal [facility] ED VISIT SUMMARYon ED VISIT SUMMARY Normal [facility] ED VITALS FLOW SHEETon 02-15 ED VITALS FLOW SHEET Normal [facility] MAGNESIUMon 02-15-2025 Magnesium [Mass/Vol] 1.5 mg/dL Low 1.8 - 2.4 [facility] Comment on above: Performed By: #### 2 69915 ####[facility],[address] [place] [address] 29124 SEDRATEon 02-15-2025 SEDRATE 9 mm/hr Normal 0 - 30 [facility] Comment on above: Performed By: #### 2 18668 ####[facility],[address] [place] [address] 06091 CBC + DIFFon 02-14-2025 Baso # 0.04 x10EE3/UL Normal 0.00 - 0.10 [facility] Comment on above: Performed By: #### 2 58941 ####[facility],[address] [place] [address] 44100 Basophils/100 WBC (Bld) 0.6 % Normal 0.0 - 2.0 [facility] Comment on above: Performed By: #### 2 67002 ####[facility],[address] [place] [address] 73088 CBC + DIFF Normal [facility] Comment on above: Result Comment: CBC- COMPLETE BLOOD COUNT Performed By: #### 2 86941 ####[place] [address] EO # 0.13 x10EE3/UL Normal 0.00 - 0.50 [facility] Comment on above: Performed By: #### 2 26484 ####[place] [address] Eosinophils/100 WBC (Bld) 2.1 % Normal 0.0 - 7.0 [facility] Comment on above: Performed By: #### 2 64113 ####[place] [address] Erythrocyte distribution width (RBC) [Ratio] 13.9 % Normal 12.0 - 15.6 [facility] Comment on above: Performed By: #### 2 27057 ####[place] [address] Hematocrit (Bld) [Volume fraction] 48.6 % High 34.0 - 46.0 [facility] Comment on above: Performed By: #### 2 37019 ####[place] [address] Hemoglobin (Bld) [Mass/Vol] 16.1 g/dL High 12.0 - 16.0 [facility] Comment on above: Performed By: #### 2 78171 ####[place] [id number] Lymph # 1.26 x10EE3/UL Normal 0.80 - 2.80 [facility] Comment on above: Performed By: #### 2 24342 ####[place] [address] Lymphocytes/100 WBC (Bld) 19.7 % Low 20.0 - 45.0 [facility] Comment on above: Performed By: #### 2 39403 ####[address] [address] MANUAL DIFF N/A Normal [facility] Comment on above: Performed By: #### 2 23818 ####[facility],[address] [place] [address] MCH (RBC) [Entitic mass] 28 pg Normal 27 - 33 [facility] Comment on above: Performed By: #### 2 99057 ####[facility],[address] [place] [address] MCHC 33 X10 3 Normal 32 - 36 [facility] Comment on above: Performed By: #### 2 39437 ####[facility],[address] [place] [address] MCV (RBC) [Entitic vol] 85 fL Normal 80 - 99 [facility] Comment on above: Performed By: #### 2 13079 ####[place] [address] [place] # 0.49 x10EE3/UL Normal 0.20 - 1.00 [facility] Comment on above: Performed By: #### 2 28774 ####[place] [address] MONOS % 7.6 % Normal 0.0 - 10.0 [facility] Comment on above: Performed By: #### 2 08357 ####[facility],[address] [place] [address] Morphology Julian (Bld) [Interp] N/A Normal [facility] Comment on above: Performed By: #### 2 49474 ####[place] [address] Neut # 4.49 x10EE3/UL Normal 1.50 - 7.10 [facility] Comment on above: Performed By: #### 2 14679 ####[place] [address] Neutrophils/100 WBC (Bld) 70.1 % Normal 46.0 - 76.0 [facility] Comment on above: Performed By: #### 2 19607 ####[facility],[address] [place] [address] 64809 PLATELET 303 x10EE3/UL Normal 150 - 450 [facility] Comment on above: Performed By: #### 2 38283 ####[facility],[address] [place] [address] 42621 Platelet mean volume (Bld) [Entitic vol] 7.9 fL Normal 6.6 - 10.5 [facility] Comment on above: Result Comment: AUTO MATED DIFFERENTIAL Performed By: #### 2 24861 ####[facility],[address] [place] [address] 10824 RBC 5.74 x 10EE6/UL High 4.10 - 5.30 [facility] Comment on above: Performed By: #### 2 33361 ####[facility],[address] [place] [address] 39155 WBC 6.4 x 10EE3/UL Normal 4.5 - 10.8 [facility] Comment on above: Performed By: #### 2 47200 ####[facility],[address] [place] [address] 70506 CMP with eGFRon 02-14-2025 AGE 75 years Normal [facility] Comment on above: Performed By: #### 2 95121 ####[facility],[address] [place] [address] 48107 Albumin [Mass/Vol] 4.2 g/dL Normal 3.4 - 5.0 [facility] Comment on above: Performed By: #### 2 38319 ####[facility],[address] [place] [address] 09199 Albumin/Globulin [Mass ratio] 1.1 {ratio} Normal 0.9 - 1.6 [facility] Comment on above: Performed By: #### 2 01506 ####[facility],[address] [place] [address] 48341 ALK PHOS 109 U/L Normal 46 - 116 [facility] Comment on above: Performed By: #### 2 79418 ####[facility],[address] [place] [address] 38592 ALT [Catalytic activity/Vol] 28 U/L Normal 16 - 63 [facility] Comment on above: Performed By: #### 2 12904 ####[facility],[address] [place] [address] 39814 Anion gap [Moles/Vol] 14 mmol/L Normal 10 - 20 [facility] Comment on above: Performed By: #### 2 48481 ####[facility],[address] [place] [address] 83482 AST [Catalytic activity/Vol] 20 U/L Normal 13 - 39 [facility] Comment on above: Performed By: #### 2 95794 ####[facility],[address] [place] [address] 28281 B/C RATIO 8 ratio Normal 0 - 30 [facility] Comment on above: Performed By: #### 2 96316 ####[facility],[address] [place] [address] 13922 Bilirubin [Mass/Vol] 0.5 mg/dL Normal 0.2 - 1.0 [facility] Comment on above: Performed By: #### 2 30141 ####[facility],[address] [place] [address] 40010 Calcium [Mass/Vol] 10.4 mg/dL High 8.5 - 10.1 [facility] Comment on above: Performed By: #### 2 00030 ####[facility],[address] [place] [address] 31598 Chloride [Moles/Vol] 98 mmol/L Normal 98 - 107 [facility] Comment on above: Performed By: #### 2 87205 ####[facility],[address] [place] [address] 12286 CMP with eGFR Normal [facility] Comment on above: Result Comment: COMP REHENSIVE METABOLIC PANEL Performed By: #### 2 82240 ####[facility],[address] [place] [address] 05016 CO2 [Moles/Vol] 28.6 mmol/L Normal 21.0 - 32.0 [facility] Comment on above: Performed By: #### 2 92206 ####[facility],[address] [place] [address] 90300 Creatinine [Mass/Vol] 1.47 mg/dL High 0.55 - 1.02 [facility] Comment on above: Performed By: #### 2 37466 ####[facility],[address] [place] [address] 43575 eGFR 35 ML/MINUTE Low 60 - 999 [facility] Comment on above: Performed By: #### 2 77145 ####[facility],[address] [place] [address] 66380 eGFR(AA) 42 ML/MINUTE Low 60 - 999 [facility] Comment on above: Result Comment: ACCO RDING TO THE NATIONAL KIDNEY DISEASE EDUCATION PROGRAM(NKDE), A NORMAL eGFRIS A VALUE GREATER THAN OR EQUAL TO 60 ML/MIN/1.73 SQ METERS.CHRONIC KIDNEY DISEASE: <60mL/MIN/1.73 SQ METERSKIDNEY FAILURE: <15mL/MIN/1.73 SQ METERSTHIS TEST SHOULD ONLY BE USED FOR PATIENTS 18 YEARS OF AGE AND OLDER. Performed By: #### 2 85666 ####[facility],[address] [place] [address] 75829 Globulin (S) [Mass/Vol] 3.9 g/dL High 1.5 - 3.8 [facility] Comment on above: Performed By: #### 2 87588 ####[facility],[address] [place] [address] 97223 Glucose [Mass/Vol] 111 mg/dL High 74 - 106 [facility] Comment on above: Performed By: #### 2 06987 ####[facility],[address] [place] [address] 94667 Potassium [Moles/Vol] 3.8 mmol/L Normal 3.5 - 5.1 [facility] Comment on above: Performed By: #### 2 62661 ####[facility],[address] [place], [place] [id number] Protein [Mass/Vol] 8.1 g/dL Normal 6.4 - 8.2 [facility] Comment on above: Performed By: #### 2 76735 ####[facility],[address] [place] [address] 80750 Sodium [Moles/Vol] 137 mmol/L Normal 136 - 145 [facility] Comment on above: Performed By: #### 2 57134 ####[facility],[address] [place] [address] Urea nitrogen [Mass/Vol] 12 mg/dL Normal 7 - 18 [facility] Comment on above: Performed By: #### 2 91632 ####[facility],[address] [place], [place] [id number] CT ABDOMEN/PELVIS Won 2024 CT ABDOMEN/PELVIS W Normal [facility] ED MED ADMINISTRATION DETAIL on 02-13-2025 ED MED ADMINISTRATION DETAIL Normal [facility] ED NURSES CLINICAL NOTEon ED NURSES CLINICAL NOTE Normal [facility] ED ORDER SHEET (CPOE ONLY)on 02-13-2025 ED ORDER SHEET (CPOE ONLY) Normal [facility] ED PHYSICIAN CLINICAL REPORT on 02-13-2025 ED PHYSICIAN CLINICAL REPORT Normal [facility] ED SUPER BILLon 02-13-2025 ED SUPER BILL Normal [facility] ED VISIT SUMMARYon ED VISIT SUMMARY Normal [facility] ED VITALS FLOW SHEETon 02-13 ED VITALS FLOW SHEET Normal [facility] ABDOMEN 2 VIEWSon 02-10-2025 ABDOMEN 2 VIEWS Normal [facility] CBC + DIFFon 02-10-2025 Baso # 0.04 x10EE3/UL Normal 0.00 - 0.10 [facility] Comment on above: Performed By: #### 2 43435 ####[facility],[address] [place] [address] 02702 Basophils/100 WBC (Bld) 0.5 % Normal 0.0 - 2.0 [facility] Comment on above: Performed By: #### 2 79243 ####[facility],[address] [place] [address] 64371 CBC + DIFF Normal [facility] Comment on above: Result Comment: CBC- COMPLETE BLOOD COUNT Performed By: #### 2 95410 ####[facility],[address] [place] [address] 07787 EO # 0.08 x10EE3/UL Normal 0.00 - 0.50 [facility] Comment on above: Performed By: #### 2 89700 ####[facility],[address] [place] [address] 78163 Eosinophils/100 WBC (Bld) 0.8 % Normal 0.0 - 7.0 [facility] Comment on above: Performed By: #### 2 34942 ####[facility],[address] [place] [address] 09634 Erythrocyte distribution width (RBC) [Ratio] 13.9 % Normal 12.0 - 15.6 [facility] Comment on above: Performed By: #### 2 45662 ####[facility],[address] [place] [address] 75570 Hematocrit (Bld) [Volume fraction] 51.4 % High 34.0 - 46.0 [facility] Comment on above: Performed By: #### 2 75732 ####[facility],[address] [place] [address] 33367 Hemoglobin (Bld) [Mass/Vol] 17.3 g/dL High 12.0 - 16.0 [facility] Comment on above: Performed By: #### 2 67657 ####[facility],[address] [place] [address] Lymph # 1.04 x10EE3/UL Normal 0.80 - 2.80 [facility] Comment on above: Performed By: #### 2 99819 ####[facility],[address] [place] [address] Lymphocytes/100 WBC (Bld) 10.8 % Low 20.0 - 45.0 [facility] Comment on above: Performed By: #### 2 08330 ####[facility],[address] [place] [address] MANUAL DIFF N/A Normal [facility] Comment on above: Performed By: #### 2 13953 ####[facility],[address] [place] [address] MCH (RBC) [Entitic mass] 28 pg Normal 27 - 33 [facility] Comment on above: Performed By: #### 2 36722 ####[place] [address] MCHC 34 X10 3 Normal 32 - 36 [facility] Comment on above: Performed By: #### 2 36448 ####[facility],[address] [place] [address] MCV (RBC) [Entitic vol] 84 fL Normal 80 - 99 [facility] Comment on above: Performed By: #### 2 93428 ####[facility],[address] [place] [address] [place] # 0.64 x10EE3/UL Normal 0.20 - 1.00 [facility] Comment on above: Performed By: #### 2 72083 ####[facility],[address] [place] [address] MONOS % 6.7 % Normal 0.0 - 10.0 [facility] Comment on above: Performed By: #### 2 70123 ####[facility],[address] [place] [address] 90800 Morphology Julian (Bld) [Interp] N/A Normal [facility] Comment on above: Performed By: #### 2 68644 ####[facility],[address] [place] [address] 74747 Neut # 7.76 x10EE3/UL High 1.50 - 7.10 [facility] Comment on above: Performed By: #### 2 53024 ####[facility],[address] [place] [address] Neutrophils/100 WBC (Bld) 81.2 % High 46.0 - 76.0 [facility] Comment on above: Performed By: #### 2 98911 ####[facility],[address] [place] [address] PLATELET 316 x10EE3/UL Normal 150 - 450 [facility] Comment on above: Performed By: #### 2 12018 ####[facility],[address] [place] [address] Platelet mean volume (Bld) [Entitic vol] 7.8 fL Normal 6.6 - 10.5 [facility] Comment on above: Result Comment: AUTO MATED DIFFERENTIAL Performed By: #### 2 43854 ####[facility],[address] [place] [address] 71727 RBC 6.10 x 10EE6/UL High 4.10 - 5.30 [facility] Comment on above: Performed By: #### 2 66600 ####[place] [id number] WBC 9.6 x 10EE3/UL Normal 4.5 - 10.8 [facility] Comment on above: Performed By: #### 2 76171 ####[facility],[address] [place], [place] [id number] CMP with eGFRon 02-10-2025 AGE 75 years Normal [facility] Comment on above: Performed By: #### 2 73659 ####[facility],[address] [place] [address] 66801 Albumin [Mass/Vol] 4.1 g/dL Normal 3.4 - 5.0 [facility] Comment on above: Performed By: #### 2 45207 ####[facility],[address] [place] [address] Albumin/Globulin [Mass ratio] 1.0 {ratio} Normal 0.9 - 1.6 [facility] Comment on above: Performed By: #### 2 54358 ####[facility],[address] [place] [address] 14634 ALK PHOS 106 U/L Normal 46 - 116 [facility] Comment on above: Performed By: #### 2 94027 ####[facility],[address] [place], [place] [address] ALT [Catalytic activity/Vol] 25 U/L Normal 16 - 63 [facility] Comment on above: Performed By: #### 2 66853 ####[facility],[address] [place] [address] 86290 Anion gap [Moles/Vol] 19 mmol/L Normal 10 - 20 [facility] Comment on above: Performed By: #### 2 87268 ####[facility],[address] [place] [address] 31925 AST [Catalytic activity/Vol] 22 U/L Normal 13 - 39 [facility] Comment on above: Performed By: #### 2 17825 ####[facility],[address] [place] [address] 31408 B/C RATIO 16 ratio Normal 0 - 30 [facility] Comment on above: Performed By: #### 2 67268 ####[facility],[address] [place] [address] 29542 Bilirubin [Mass/Vol] 0.6 mg/dL Normal 0.2 - 1.0 [facility] Comment on above: Performed By: #### 2 63198 ####[facility],[address] [place] [address] 11503 Calcium [Mass/Vol] 10.1 mg/dL Normal 8.5 - 10.1 [facility] Comment on above: Performed By: #### 2 43544 ####[facility],[address] [place] [address] 08874 Chloride [Moles/Vol] 97 mmol/L Low 98 - 107 [facility] Comment on above: Performed By: #### 2 70914 ####[facility],[address] [place] [address] 29338 CMP with eGFR Normal [facility] Comment on above: Result Comment: COMP REHENSIVE METABOLIC PANEL Performed By: #### 2 03868 ####[facility],[address] [place] [address] 09263 CO2 [Moles/Vol] 23.2 mmol/L Normal 21.0 - 32.0 [facility] Comment on above: Performed By: #### 2 36733 ####[facility],[address] [place] [address] 37515 Creatinine [Mass/Vol] 1.35 mg/dL High 0.55 - 1.02 [facility] Comment on above: Performed By: #### 2 33538 ####[facility],[address] [place] [address] 86424 eGFR 38 ML/MINUTE Low 60 - 999 [facility] Comment on above: Performed By: #### 2 69088 ####[facility],[address] [place] [address] 06200 eGFR(AA) 46 ML/MINUTE Low 60 - 999 [facility] Comment on above: Result Comment: ACCO RDING TO THE NATIONAL KIDNEY DISEASE EDUCATION PROGRAM(NKDE), A NORMAL eGFRIS A VALUE GREATER THAN OR EQUAL TO 60 ML/MIN/1.73 SQ METERS.CHRONIC KIDNEY DISEASE: <60mL/MIN/1.73 SQ METERSKIDNEY FAILURE: <15mL/MIN/1.73 SQ METERSTHIS TEST SHOULD ONLY BE USED FOR PATIENTS 18 YEARS OF AGE AND OLDER. Performed By: #### 2 03556 ####[facility],[address] [place] [address] 70027 Globulin (S) [Mass/Vol] 4.2 g/dL High 1.5 - 3.8 [facility] Comment on above: Performed By: #### 2 64707 ####[facility],[address] [place] [address] 89093 Glucose [Mass/Vol] 114 mg/dL High 74 - 106 [facility] Comment on above: Performed By: #### 2 85362 ####[address] [address] Potassium [Moles/Vol] 3.9 mmol/L Normal 3.5 - 5.1 [facility] Comment on above: Performed By: #### 2 74337 ####[facility],[address] [place] [address] 10528 Protein [Mass/Vol] 8.3 g/dL High 6.4 - 8.2 [facility] Comment on above: Performed By: #### 2 99312 ####[facility],[address] [place] [address] 73649 Sodium [Moles/Vol] 135 mmol/L Low 136 - 145 [facility] Comment on above: Performed By: #### 2 59393 ####[facility],[address] [place] [address] 71705 Urea nitrogen [Mass/Vol] 22 mg/dL High 7 - 18 [facility] Comment on above: Performed By: #### 2 55308 ####[facility],[address] [place] [address] 61754 ED MED ADMINISTRATION DETAIL on 02-10-2025 ED MED ADMINISTRATION DETAIL Normal [facility] ED NURSES CLINICAL NOTEon ED NURSES CLINICAL NOTE Normal [facility] ED ORDER SHEET (CPOE ONLY)on 02-10-2025 ED ORDER SHEET (CPOE ONLY) Normal [facility] ED PHYSICIAN CLINICAL REPORT on 02-10-2025 ED PHYSICIAN CLINICAL REPORT Normal [facility] ED SUPER BILLon 02-10-2025 ED SUPER BILL Normal [facility] ED VISIT SUMMARYon ED VISIT SUMMARY Normal [facility] ED VITALS FLOW SHEETon 02-10 ED VITALS FLOW SHEET Normal [facility] LACTATEon 02-10-2025 Lactate [Moles/Vol] 1.9 mmol/L Normal 0.4 - 2.0 [facility] Comment on above: Performed By: #### 2 44203 ####[facility],[address] [place] [address] LIPASEon 02-10-2025 Lipase [Catalytic activity/Vol] 84.0 U/L High 15.0 - 78.0 [facility] Comment on above: Result Comment: *PLE ASE NOTE THAT RANGES FOR LIPASE HAVE CHANGED OF 04/12/23 DUE TO AN ASSAYUPDATE BY THE HAND BINDER STRIPPER.THE NEW ASSAY RANGE IS 6-250 U/L, WITH A REFERENCERANGE OF 16-77 U/L. Performed By: #### 2 52702 ####[facility],[address] [place] [address] SEDRATEon 02-10-2025 SEDRATE 14 mm/hr Normal 0 - 30 [facility] Comment on above: Performed By: #### 2 17514 ####[place] [address] TROPONINon 02-10-2025 HS TROPONIN <4.0 Normal 0.0 - 51.4 [facility] Comment on above: Performed By: #### 2 69849 ####[facility],[address] [place] [address] TSHon 02-10-2025 TSH Qn 1.65 m[IU]/L Normal 0.35 - 3.74 [facility] Comment on above: Performed By: #### 2 48629 ####[facility],[address] [place] [address] 68534 URINALYSISon 02-10-2025 Amorphous 2+ Normal [facility] Comment on above: Performed By: #### 2 89660 ####[facility],[address] [place] [address] 58267 Bacteria NONE Normal [facility] Comment on above: Performed By: #### 2 28650 ####[facility],[address] [place] [address] 77381 Bilirubin Ql (U) Negative Normal NORMAL: NEGATIVE [facility] Comment on above: Performed By: #### 2 38775 ####[facility],[address] [place] [address] 50642 Casts NONE Normal [facility] Comment on above: Performed By: #### 2 28273 ####[facility],[address] [place] [address] 43467 Clarity (U) CLEAR Normal NORMAL: CLEAR [facility] Comment on above: Performed By: #### 2 49623 ####[facility],[address] [place] [address] 30324 Color (U) brown Normal NORMAL: YELLOW [facility] Comment on above: Performed By: #### 2 28900 ####[facility],[address] [place] [address] 86901 Crystals LM Nom (Urine sed) NONE Normal [facility] Comment on above: Performed By: #### 2 27255 ####[facility],[address] [place] [address] 21454 Epi Cells FEW Normal [facility] Comment on above: Performed By: #### 2 82578 ####[facility],[address] [place], [place] [address] Glucose Ql (U) NORM Normal NORMAL: NORMAL [facility] Comment on above: Performed By: #### 2 09800 ####[facility],[address] [place] [address] 27692 Hemoglobin Ql (U) Negative Normal NORMAL: NEGATIVE [facility] Comment on above: Performed By: #### 2 28407 ####[facility],[address] [place] [address] 96156 Ketone 15 Abnormal NORMAL: NEGATIVE [facility] Comment on above: Performed By: #### 2 98602 ####[facility],[address] [place] [address] Leukocytes 25 Abnormal NORMAL: NEGATIVE [facility] Comment on above: Performed By: #### 2 20525 ####[facility],[address] [place] [address] Mucous 2+ Normal [facility] Comment on above: Performed By: #### 2 19685 ####[facility],[address] [place], [place] [address] Nitrite Ql (U) Negative Normal NORMAL: NEGATIVE [facility] Comment on above: Performed By: #### 2 83006 ####[facility],[address] [place], [place] [address] pH (U) 5 [pH] Normal NORMAL: 5.0-8.0 [facility] Comment on above: Performed By: #### 2 48316 ####[facility],[address] [place] [address] 42020 Protein Ql (U) 30 Abnormal NORMAL: NEGATIVE [facility] Comment on above: Performed By: #### 2 84077 ####[facility],[address] [place] [address] 96176 Rbc NONE Normal 0-3/hpf [facility] Comment on above: Performed By: #### 2 08561 ####[facility],[address] [place], [place] [address] [place] 1.025 Normal NORMAL: 1.010-1.030 [facility] Comment on above: Performed By: #### 2 22905 ####[facility],[address] [place] [address] Specimen Type R Normal [facility] Comment on above: Performed By: #### 2 58463 ####[facility],[address] [place] [address] Urinalysis dipstick W Reflex Microscopic panel (U) SEE BELOW Normal [facility] Comment on above: Result Comment: MICR OSCOPIC Performed By: #### 2 35114 ####[facility],[address] [place] [address] Urobilinog 1 Abnormal NORMAL: NORMAL [facility] Comment on above: Performed By: #### 2 82413 ####[facility],[address] [place] [address] Wbc 1-5 Normal 0-5/hpf [facility] Comment on above: Performed By: #### 2 03830 ####[facility],[address] [place] [address] Yeast NONE Normal [facility] Comment on above: Performed By: #### 2 84228 ####[facility],[address] [place] [address] MR/BMS.SIMONBon 02-03-2025 MR/BMS.IMB [facility] [address] [facility]. [address] [place] [address] OFFICE VISIT Date of Service: 02/03/25 MR#: [id number] Acct: [id number] Name: BONY HUANG Rep #: [id number] : 1950 Provider: Dr. 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 Required: No Accompanied by: Is patient in pain?: No Allergies Sulfa (Sulfonamide Antibiotics) Allergy (Mild, Verified 02/03/25 08:57) Rash sulfamethoxazole (From Bactrim) Allergy (Mild, Verified 02/03/25 08:57) rash trimethoprim (From Bactrim) Allergy (Mild, Verified 02/03/25 08:57) rash aspirin Adverse Reaction (Mild, Verified 02/03/25 08:57) nose bleed Medications ???Medication ???Instructions ???Recorded ???Confirmed ???Type melatonin 5 mg capsule 5 mg PO DAILY 10/25/22 02/03/25 Hi story cholecalciferol (vitamin D3) 25 25 mcg PO QDAY 01/23/24 02/03/25 H istory mcg (1,000 unit) capsule pantoprazole 20 mg tablet,delayed 20 mg PO 4XD 02/17/24 02/03/25 Hi story release potassium iodide 65 mg tablet 130 mg PO DAILY 02/17/24 02/03/25 History ondansetron 4 mg disintegrating 4 mg PO Q8H PRN PRN Nausea #10 tab s 02/20/24 02/03/25 Rx tablet brain sync PO DAILY 02/24/24 02/03/25 History cetirizine 5 mg tablet 5 mg PO QDAY PRN 02/24/24 02/03/25 History digestive enzymes 1 tab PO QDAY 02/24/24 02/03/25 Hi story vitamin B complex 1 tab PO QDAY 02/24/24 02/03/25 Hi story Motegrity 2 mg tablet 2 mg PO DAILY #90 tabs 05/25/24 Rx (prucalopride) levothyroxine 88 mcg tablet 88 mcg PO DAILY #90 tabs 07/06/24 02/03/25 Rx ergocalciferol (vitamin D2) 10 mcg 10 mcg PO QDAY 10/19/24 02/03/25 History (400 unit) tablet loperamide 2 mg capsule 2 mg PO Q6H PRN 02/03/25 02/03/25 History polyethylene glycol 3350 17 4 g PO ONCE 02/03/25 02/03/25 Hist ory gram/dose oral powder (Miralax) psyllium husk 0.4 gram capsule 0.4 g PO ONCE 02/03/25 02/03/25 Hi story (Metamucil) Have you fallen in the past year?: No PFSH Medical History (Updated 02/03/25 @ 09:[address] Cheikh Pinto MD) Elevated serum creatinine Hypothyroidism polypectomy Gastroparesis Carcinoid tumor Surgical History H/O: hysterectomy Family History Father Heart disease Myocardial infarction Mother CVA (cerebral vascular accident) Thyroid disorder Cancer Asthma Breast cancer Sister Cancer Social History Smoking Status: Never smoker alcohol intake: never substance use type: does not use HPI HPI Chief Complaint: Abnormal bowel movements Details: BONY HUANG, is a 75 F who presents to the office today for ER follow-up. Hospital follow-up. Since last seen, has had a couple of additional ER visits. Unfortunately, [facility] in [place] declined seeing Bony within their gastric motility disorder clinic. She did get back in with [facility]. However to me, no specific inroads were made in that interaction. She was admitted through the emergency room during 1 of these episodes. She states initially they treated her with IV fluids and she was starting to feel better and they were intending to release her however then she rebounded with symptoms and they ended up keeping her for 5 days however no new specific revelations were made. No new studies were made or anticipated. They did ask her to stop Motegrity. I would agree with that decision from the standpoint that in retrospect this is not in any way significantly helped her with her ongoing symptoms. Did not cut down the number of episodes of requiring emergency room IV fluids for this situation. However again no new revelations. She had a recent ER visit just a few days ago on the for Pomerene with nausea, vomiting, abdominal discomfort. Was given IV fluids and Zofran and discharged. From the [facility] standpoint, I guess they will continue to follow her however they just suggested that she work with the combination of fiber supplement on the 1 hand as well as MiraLAX and if said send the diarrhea, loperamide. She still has a fairly limited dietary spectrum of foods that she can tolerate. M (more content not included)... Normal [facility] CBC + DIFFon 02-01-2025 Baso # 0.04 x10EE3/UL Normal 0.00 - 0.10 [facility] Comment on above: Performed By: #### 2 51888 ####[facility],[address] [place] [address] Basophils/100 WBC (Bld) 0.3 % Normal 0.0 - 2.0 [facility] Comment on above: Performed By: #### 2 62548 ####[facility],[address] [place] [address] CBC + DIFF Normal [facility] Comment on above: Result Comment: CBC- COMPLETE BLOOD COUNT Performed By: #### 2 73427 ####[facility],[address] [place] [address] EO # 0.25 x10EE3/UL Normal 0.00 - 0.50 [facility] Comment on above: Performed By: #### 2 94744 ####[facility],[address] [place], [place] [id number] Eosinophils/100 WBC (Bld) 2.2 % Normal 0.0 - 7.0 [facility] Comment on above: Performed By: #### 2 59917 ####[facility],[address] [place] [address] Erythrocyte distribution width (RBC) [Ratio] 13.3 % Normal 12.0 - 15.6 [facility] Comment on above: Performed By: #### 2 72188 ####[place] [address],[place] [address] Hematocrit (Bld) [Volume fraction] 46.2 % High 34.0 - 46.0 [facility] Comment on above: Performed By: #### 2 83178 ####[facility],[address] [place] [address] 44560 Hemoglobin (Bld) [Mass/Vol] 15.7 g/dL Normal 12.0 - 16.0 [facility] Comment on above: Performed By: #### 2 09622 ####[facility],[address] [place] [address] 19886 Lymph # 2.13 x10EE3/UL Normal 0.80 - 2.80 [facility] Comment on above: Performed By: #### 2 86830 ####[facility],[address] [place] [address] 73308 Lymphocytes/100 WBC (Bld) 18.4 % Low 20.0 - 45.0 [facility] Comment on above: Performed By: #### 2 75715 ####[facility],[address] [place] [address] 23694 MANUAL DIFF N/A Normal [facility] Comment on above: Performed By: #### 2 24634 ####[facility],[address] [place] [address] 10020 MCH (RBC) [Entitic mass] 29 pg Normal 27 - 33 [facility] Comment on above: Performed By: #### 2 41200 ####[facility],[address] [place] [address] 24732 MCHC 34 X10 3 Normal 32 - 36 [facility] Comment on above: Performed By: #### 2 35450 ####[facility],[address] [place] [address] 97433 MCV (RBC) [Entitic vol] 85 fL Normal 80 - 99 [facility] Comment on above: Performed By: #### 2 86238 ####[facility],[address] [place] [address] 24370 [place] # 0.74 x10EE3/UL Normal 0.20 - 1.00 [facility] Comment on above: Performed By: #### 2 64396 ####[facility],[address] [place] [address] 18185 MONOS % 6.4 % Normal 0.0 - 10.0 [facility] Comment on above: Performed By: #### 2 42978 ####[facility],[address] [place] [address] 10534 Morphology Julian (Bld) [Interp] N/A Normal [facility] Comment on above: Performed By: #### 2 71872 ####[facility],[address] [place] [address] 33698 Neut # 8.46 x10EE3/UL High 1.50 - 7.10 [facility] Comment on above: Performed By: #### 2 13020 ####[facility],[address] [place] [address] 32515 Neutrophils/100 WBC (Bld) 72.8 % Normal 46.0 - 76.0 [facility] Comment on above: Performed By: #### 2 91127 ####[facility],[address] [place] [address] 66409 PLATELET 344 x10EE3/UL Normal 150 - 450 [facility] Comment on above: Performed By: #### 2 62488 ####[facility],[address] [place] [address] 81991 Platelet mean volume (Bld) [Entitic vol] 7.3 fL Normal 6.6 - 10.5 [facility] Comment on above: Result Comment: AUTO MATED DIFFERENTIAL Performed By: #### 2 00329 ####[facility],[address] [place] [address] 65197 RBC 5.46 x 10EE6/UL High 4.10 - 5.30 [facility] Comment on above: Performed By: #### 2 44115 ####[facility],[address] [place] [address] 21714 WBC 11.6 x 10EE3/UL High 4.5 - 10.8 [facility] Comment on above: Performed By: #### 2 87856 ####[facility],[address] [place] [address] 83562 CMP with eGFRon 02-01-2025 AGE 75 years Normal [facility] Comment on above: Performed By: #### 2 58766 ####[facility],[address] [place] [address] 21869 Albumin [Mass/Vol] 3.9 g/dL Normal 3.4 - 5.0 [facility] Comment on above: Performed By: #### 2 31095 ####[facility],[address] [place] [address] 60614 Albumin/Globulin [Mass ratio] 1.0 {ratio} Normal 0.9 - 1.6 [facility] Comment on above: Performed By: #### 2 01119 ####[facility],[address] [place] [address] 99337 ALK PHOS 102 U/L Normal 46 - 116 [facility] Comment on above: Performed By: #### 2 26159 ####[facility],[address] [place] [address] 20493 ALT [Catalytic activity/Vol] 24 U/L Normal 16 - 63 [facility] Comment on above: Performed By: #### 2 25480 ####[facility],[address] [place] [address] 74869 Anion gap [Moles/Vol] 14 mmol/L Normal 10 - 20 [facility] Comment on above: Performed By: #### 2 49307 ####[facility],[address] [place] [address] 25297 AST [Catalytic activity/Vol] 18 U/L Normal 13 - 39 [facility] Comment on above: Performed By: #### 2 14540 ####[facility],[address] [place] [address] 91015 B/C RATIO 15 ratio Normal 0 - 30 [facility] Comment on above: Performed By: #### 2 59419 ####[facility],[address] [place] [address] 24782 Bilirubin [Mass/Vol] 0.5 mg/dL Normal 0.2 - 1.0 [facility] Comment on above: Performed By: #### 2 90634 ####[facility],[address] [place] [address] 34946 Calcium [Mass/Vol] 9.8 mg/dL Normal 8.5 - 10.1 [facility] Comment on above: Performed By: #### 2 15017 ####[facility],[address] [place] [address] 93637 Chloride [Moles/Vol] 97 mmol/L Low 98 - 107 [facility] Comment on above: Performed By: #### 2 59737 ####[facility],[address] [place] [address] 53237 CMP with eGFR Normal [facility] Comment on above: Result Comment: COMP REHENSIVE METABOLIC PANEL Performed By: #### 2 02096 ####[facility],[address] [place] [address] 67001 CO2 [Moles/Vol] 32.8 mmol/L High 21.0 - 32.0 [facility] Comment on above: Performed By: #### 2 64647 ####[facility],[address] [place] [address] 66521 Creatinine [Mass/Vol] 1.11 mg/dL High 0.55 - 1.02 [facility] Comment on above: Performed By: #### 2 44512 ####[facility],[address] [place] [address] 17239 eGFR 48 ML/MINUTE Low 60 - 999 [facility] Comment on above: Performed By: #### 2 10676 ####[facility],[address] [place] [address] 11556 eGFR(AA) 58 ML/MINUTE Low 60 - 999 [facility] Comment on above: Result Comment: ACCO RDING TO THE NATIONAL KIDNEY DISEASE EDUCATION PROGRAM(NKDE), A NORMAL eGFRIS A VALUE GREATER THAN OR EQUAL TO 60 ML/MIN/1.73 SQ METERS.CHRONIC KIDNEY DISEASE: <60mL/MIN/1.73 SQ METERSKIDNEY FAILURE: <15mL/MIN/1.73 SQ METERSTHIS TEST SHOULD ONLY BE USED FOR PATIENTS 18 YEARS OF AGE AND OLDER. Performed By: #### 2 67004 ####[facility],[address] [place] [address] 79936 Globulin (S) [Mass/Vol] 3.9 g/dL High 1.5 - 3.8 [facility] Comment on above: Performed By: #### 2 81996 ####[address] [address] Glucose [Mass/Vol] 140 mg/dL High 74 - 106 [facility] Comment on above: Performed By: #### 2 84565 ####[facility],[address] [place] [address] 94584 Potassium [Moles/Vol] 2.9 mmol/L Critically low 3.5 - 5.1 [facility] Comment on above: Result Comment: { CA LLED TO JEROME RN BY AA [id number]{ READ BACK BY JEROME MOREIRA RA [id number] Performed By: #### 2 45048 ####[address] [address] Protein [Mass/Vol] 7.8 g/dL Normal 6.4 - 8.2 [facility] Comment on above: Performed By: #### 2 90027 ####[facility],[address] [place] [address] 52371 Sodium [Moles/Vol] 141 mmol/L Normal 136 - 145 [facility] Comment on above: Performed By: #### 2 67690 ####[facility],[address] [place] [address] Urea nitrogen [Mass/Vol] 17 mg/dL Normal - [facility] Comment on above: Performed By: #### 2 94323 ####[facility],[address] [place], [place] [address] LIPASEon 02-01-2025 Lipase [Catalytic activity/Vol] 79.0 U/L High 15.0 - 78.0 [facility] Comment on above: Result Comment: *PLE ASE NOTE THAT RANGES FOR LIPASE HAVE CHANGED OF 04/12/23 DUE TO AN ASSAYUPDATE BY THE HAND BINDER STRIPPER.THE NEW ASSAY RANGE IS 6-250 U/L, WITH A REFERENCERANGE OF 16-77 U/L. Performed By: #### 2 20547 ####[facility],[address] [place] [address] ED MED ADMINISTRATION DETAIL on 01-30-2025 ED MED ADMINISTRATION DETAIL Normal [facility] ED NURSES CLINICAL NOTEon ED NURSES CLINICAL NOTE Normal [facility] ED ORDER SHEET (CPOE ONLY)on 01-30-2025 ED ORDER SHEET (CPOE ONLY) Normal [facility] ED PHYSICIAN CLINICAL REPORT on 01-30-2025 ED PHYSICIAN CLINICAL REPORT Normal [facility] ED SUPER BILLon 01-30-2025 ED SUPER BILL Normal [facility] ED VISIT SUMMARYon ED VISIT SUMMARY Normal [facility] ED VITALS FLOW SHEETon 01-30 ED VITALS FLOW SHEET Normal [facility] CBC + DIFFon 01-29-2025 Baso # 0.05 x10EE3/UL Normal 0.00 - 0.10 [facility] Comment on above: Performed By: #### 2 11691 ####[facility],[address] [place] [address] Basophils/100 WBC (Bld) 0.6 % Normal 0.0 - 2.0 [facility] Comment on above: Performed By: #### 2 17366 ####[facility],[address] [place] [address] CBC + DIFF Normal [facility] Comment on above: Result Comment: CBC- COMPLETE BLOOD COUNT Performed By: #### 2 55268 ####[facility],[address] [place] [address] EO # 0.18 x10EE3/UL Normal 0.00 - 0.50 [facility] Comment on above: Performed By: #### 2 80159 ####[place] [address] Eosinophils/100 WBC (Bld) 2.1 % Normal 0.0 - 7.0 [facility] Comment on above: Performed By: #### 2 93789 ####[place] [address] Erythrocyte distribution width (RBC) [Ratio] 13.6 % Normal 12.0 - 15.6 [facility] Comment on above: Performed By: #### 2 75731 ####[place] [address] Hematocrit (Bld) [Volume fraction] 43.8 % Normal 34.0 - 46.0 [facility] Comment on above: Performed By: #### 2 89381 ####[facility],[address] [place] [address] Hemoglobin (Bld) [Mass/Vol] 15.0 g/dL Normal 12.0 - 16.0 [facility] Comment on above: Performed By: #### 2 42902 ####[place] [address] Lymph # 1.40 x10EE3/UL Normal 0.80 - 2.80 [facility] Comment on above: Performed By: #### 2 76567 ####[facility],[address] [place] [address] Lymphocytes/100 WBC (Bld) 16.3 % Low 20.0 - 45.0 [facility] Comment on above: Performed By: #### 2 65458 ####[facility],[address] [place] [address] MANUAL DIFF N/A Normal [facility] Comment on above: Performed By: #### 2 35029 ####[facility],[address] [place] [address] MCH (RBC) [Entitic mass] 29 pg Normal 27 - 33 [facility] Comment on above: Performed By: #### 2 21214 ####[facility],[address] [place] [address] MCHC 34 X10 3 Normal 32 - 36 [facility] Comment on above: Performed By: #### 2 84598 ####[facility],[address] [place] [address] MCV (RBC) [Entitic vol] 85 fL Normal 80 - 99 [facility] Comment on above: Performed By: #### 2 17951 ####[facility],[address] [place] [address] [place] # 0.81 x10EE3/UL Normal 0.20 - 1.00 [facility] Comment on above: Performed By: #### 2 97707 ####[facility],[address] [place] [address] MONOS % 9.3 % Normal 0.0 - 10.0 [facility] Comment on above: Performed By: #### 2 75775 ####[place] [address] Morphology Julian (Bld) [Interp] N/A Normal [facility] Comment on above: Performed By: #### 2 69732 ####[facility],[address],[place] [address] Neut # 6.19 x10EE3/UL Normal 1.50 - 7.10 [facility] Comment on above: Performed By: #### 2 50818 ####[facility],[address] [place] [address] 03398 Neutrophils/100 WBC (Bld) 71.7 % Normal 46.0 - 76.0 [facility] Comment on above: Performed By: #### 2 71373 ####[facility],[address] [place] [address] 07638 PLATELET 317 x10EE3/UL Normal 150 - 450 [facility] Comment on above: Performed By: #### 2 34355 ####[facility],[address] [place] [address] 37482 Platelet mean volume (Bld) [Entitic vol] 7.7 fL Normal 6.6 - 10.5 [facility] Comment on above: Result Comment: AUTO MATED DIFFERENTIAL Performed By: #### 2 46433 ####[facility],[address] [place] [address] 36865 RBC 5.17 x 10EE6/UL Normal 4.10 - 5.30 [facility] Comment on above: Performed By: #### 2 22065 ####[facility],[address] [place] [address] 19132 WBC 8.6 x 10EE3/UL Normal 4.5 - 10.8 [facility] Comment on above: Performed By: #### 2 81738 ####[facility],[address] [place] [address] 61755 CMP with eGFRon 01-29-2025 AGE 75 years Normal [facility] Comment on above: Performed By: #### 2 06573 ####[facility],[address] [place] [address] 01518 Albumin [Mass/Vol] 3.7 g/dL Normal 3.4 - 5.0 [facility] Comment on above: Performed By: #### 2 24033 ####[facility],[address] [place] [address] 54462 Albumin/Globulin [Mass ratio] 1.0 {ratio} Normal 0.9 - 1.6 [facility] Comment on above: Performed By: #### 2 73992 ####[facility],[address] [place] [address] 17377 ALK PHOS 101 U/L Normal 46 - 116 [facility] Comment on above: Performed By: #### 2 26600 ####[facility],[address] [place] [address] 35285 ALT [Catalytic activity/Vol] 20 U/L Normal 16 - 63 [facility] Comment on above: Performed By: #### 2 02652 ####[facility],[address] [place] [address] 44947 Anion gap [Moles/Vol] 11 mmol/L Normal 10 - 20 [facility] Comment on above: Performed By: #### 2 05801 ####[facility],[address] [place] [address] 57120 AST [Catalytic activity/Vol] 19 U/L Normal 13 - 39 [facility] Comment on above: Performed By: #### 2 54494 ####[facility],[address] [place] [address] 17290 B/C RATIO 14 ratio Normal 0 - 30 [facility] Comment on above: Performed By: #### 2 09778 ####[facility],[address] [place] [address] 71314 Bilirubin [Mass/Vol] 0.3 mg/dL Normal 0.2 - 1.0 [facility] Comment on above: Performed By: #### 2 19194 ####[facility],[address] [place] [address] 60801 Calcium [Mass/Vol] 9.1 mg/dL Normal 8.5 - 10.1 [facility] Comment on above: Performed By: #### 2 13643 ####[facility],[address] [place] [address] 05268 Chloride [Moles/Vol] 96 mmol/L Low 98 - 107 [facility] Comment on above: Performed By: #### 2 23438 ####[facility],[address] [place] [address] 19278 CMP with eGFR Normal [facility] Comment on above: Result Comment: COMP REHENSIVE METABOLIC PANEL Performed By: #### 2 07639 ####[facility],[address] [place] [address] 21266 CO2 [Moles/Vol] 33.0 mmol/L High 21.0 - 32.0 [facility] Comment on above: Performed By: #### 2 93208 ####[facility],[address] [place] [address] 12798 Creatinine [Mass/Vol] 1.25 mg/dL High 0.55 - 1.02 [facility] Comment on above: Performed By: #### 2 62561 ####[facility],[address] [place] [address] 47817 eGFR 42 ML/MINUTE Low 60 - 999 [facility] Comment on above: Performed By: #### 2 31228 ####[facility],[address] [place] [address] 44571 eGFR(AA) 51 ML/MINUTE Low 60 - 999 [facility] Comment on above: Result Comment: ACCO RDING TO THE NATIONAL KIDNEY DISEASE EDUCATION PROGRAM(NKDE), A NORMAL eGFRIS A VALUE GREATER THAN OR EQUAL TO 60 ML/MIN/1.73 SQ METERS.CHRONIC KIDNEY DISEASE: <60mL/MIN/1.73 SQ METERSKIDNEY FAILURE: <15mL/MIN/1.73 SQ METERSTHIS TEST SHOULD ONLY BE USED FOR PATIENTS 18 YEARS OF AGE AND OLDER. Performed By: #### 2 71054 ####[facility],[address] [place] [address] 65480 Globulin (S) [Mass/Vol] 3.8 g/dL Normal 1.5 - 3.8 [facility] Comment on above: Performed By: #### 2 79743 ####[facility],[address] [place] [address] 67717 Glucose [Mass/Vol] 128 mg/dL High 74 - 106 [facility] Comment on above: Performed By: #### 2 66446 ####[facility],[address] [place] [address] 76627 Potassium [Moles/Vol] 3.0 mmol/L Low 3.5 - 5.1 [facility] Comment on above: Performed By: #### 2 42578 ####[facility],[address] [place] [address] 93090 Protein [Mass/Vol] 7.5 g/dL Normal 6.4 - 8.2 [facility] Comment on above: Performed By: #### 2 06319 ####[facility],[address] [place] [address] 51178 Sodium [Moles/Vol] 137 mmol/L Normal 136 - 145 [facility] Comment on above: Performed By: #### 2 78062 ####[facility],[address] [place] [address] 88462 Urea nitrogen [Mass/Vol] 18 mg/dL Normal 7 - 18 [facility] Comment on above: Performed By: #### 2 14109 ####[facility],[address] [place] [address] 77977 CBC panel Auto (Bld)on 01-22 Erythrocyte distribution width (RBC) [Ratio] 13.1 % Normal 11.5-15.0 [facility] Comment on above: Order Comment: Speci men Type: BLOOD SPECIMEN Ordering Facility: [facility] Address: [address] [place] [address] Performed By: #### 5 8410-2 #### [facility] CLIA [id number] [place] Hematocrit (Bld) [Volume fraction] 38.4 % Normal 36.0-46.0 [facility] Comment on above: Order Comment: Speci men Type: BLOOD SPECIMEN Ordering Facility: [facility] Address: [address] [place] [address] Performed By: #### 5 8410-2 #### [facility] CLIA [id number] [place] [address] [place] Hemoglobin (Bld) [Mass/Vol] 12.7 g/dL Normal 11.5-15.5 [facility] Comment on above: Order Comment: Speci men Type: BLOOD SPECIMEN Ordering Facility: [facility] Address: [address] [place] [address] Performed By: #### 5 8410-2 #### [facility] CLIA [id number] [place] [address] [place] MCH (RBC) [Entitic mass] 28.5 pg Normal 26.0-34.0 [facility] Comment on above: Order Comment: Speci men Type: BLOOD SPECIMEN Ordering Facility: [facility] Address: [address] [place] [address] Performed By: #### 5 8410-2 #### [facility] CLIA [id number] [place] [address] [place] MCHC (RBC) [Mass/Vol] 33.1 g/dL Normal 30.5-36.0 [facility] Comment on above: Order Comment: Speci men Type: BLOOD SPECIMEN Ordering Facility: [facility] Address: [address] [place] [address] Performed By: #### 5 8410-2 #### [facility] CLIA [id number] [place] [address] [place] MCV (RBC) [Entitic vol] 86.3 fL Normal 80.0-100.0 [facility] Comment on above: Order Comment: Speci men Type: BLOOD SPECIMEN Ordering Facility: [facility] Address: [address] [place] [address] Performed By: #### 5 8410-2 #### [facility] CLIA [id number] [place] [id number] [place] Nucleated RBC (Bld) [#/Vol] 10*3/uL Normal <0.01 [facility] Comment on above: Order Comment: Speci men Type: BLOOD SPECIMEN Ordering Facility: [facility] Address: [address] [place] [address] Performed By: #### 5 8410-2 #### [facility] CLIA [id number] [place] [address] [place] Platelet mean volume (Bld) [Entitic vol] 10.6 fL Normal 9.0-12.7 [facility] Comment on above: Order Comment: Speci men Type: BLOOD SPECIMEN Ordering Facility: [facility] Address: [address] [place] [address] Performed By: #### 5 8410-2 #### [facility] CLIA [id number] [place] [address] [place] Platelets (Bld) [#/Vol] 222 10*3/uL Normal 150-400 [facility] Comment on above: Order Comment: Speci men Type: BLOOD SPECIMEN Ordering Facility: [facility] Address: [address] [place] [address] Performed By: #### 5 8410-2 #### [facility] CLIA [id number] [place] [address] [place] RBC (Bld) [#/Vol] 4.45 10*6/uL Normal 3.90-5.20 [facility] Comment on above: Order Comment: Speci men Type: BLOOD SPECIMEN Ordering Facility: [facility] Address: [address] [place] [address] Performed By: #### 5 8410-2 #### [facility] CLIA [id number] [place] [address] [place] WBC (Bld) [#/Vol] 10.98 10*3/uL Normal 3.70-11.00 [facility] Comment on above: Order Comment: Speci men Type: BLOOD SPECIMEN Ordering Facility: [facility] Address: [facility] [place] [address] Performed By: #### 5 8410-2 #### [facility] CLIA [id number] [address] [place] [address] [facility] CNDSon 01-22-2025 CNDS HNO ID: [id number] Author: THERESA MATTHEWS MD Service: General Internal Medicine Author Type: Physician Type: Discharge Summary Filed: 01/22/2025 21:28 Note Text: DISCHARGE SUMMARY PATIENT NAME: Bony Huang Code Status: Prior Highest Readmission Risk Score: 15 The 30 day readmissions risk score is derived from an internally validated risk model which evaluates patient level characteristics, utilization history, medication orders and lab results up until the day of discharge. Patients with a score of 39 or above are considered highest risk for readmission. Specific patient level drivers will be listed at the bottom of the summary. Admission Information Admission Information ADMIT DATE: 01/18/2025 DISCHARGE DATE: 01/22/2025 MY DOCTORS AND MEDICAL TEAM: My Main [facility] Doctor: Theresa Matthews MD Primary Care Provider: Cheikh Pinto MD My Medical Team Members: Treatment Team: Attending Provider: Theresa Matthews MD Physician Dealer Sales Rep: Indigo Sr PA-C Consulting: Shyanne Sanchez MD MY CONDITION AT DISCHARGE: Stable REASON I WAS IN THE HOSPITAL: Nausea/vomiting SUMMARY OF WHAT HAPPENED WHILE I WAS IN THE HOSPITAL: 75 y/o female with past medical history of GERD, Hypothroidism, N/V presents to [facility] via transfer from another hospital with complaints of nausea, vomiting and diarrhea. GI was consulted for gastroparesis. .Recommendations: Patient is not good at requesting PRN meds. Will Zofran for nausea and vomiting. Patient requested PPI stating it would help her symptoms. Would not recommend a scheduled loperamide in the consideration of her constipation history. Patient has cycles of constipation then diarrhea then vomiting. Medications as recomm by GI at time of discharge home. - Zofran as needed - Pantoprazole 40 mg oral twice daily - MiraLAX as needed when constipated - Imodium as needed for diarrhea - Continue Fibers such as Metamucil for post constipation diarrhea - Follow-up outpatient OTHER PROBLEMS/DIAGNOSIS: Principal Problem: Nausea vomiting and diarrhea Active Problems: GERD (gastroesophageal reflux disease) Acquired hypothyroidism Malnutrition of mild degree (HCC) Gastroparesis ALICIA (acute kidney injury) Overweight Hiatal hernia without gangrene and obstruction History of gastritis History of malignant carcinoid tumor of small intestine NANDV (nausea and vomiting) Irritable bowel syndrome with constipation Resolved Problems: * No resolved hospital problems. * OPERATIONS PERFORMED WHILE IN THE HOSPITAL: None IMPORTANT TEST/PROCEDURES: No procedures performed TEST RESULTS NOT AVAILABLE AT THIS TIME: No pending results Discharge Disposition Discharge Disposition: Home With Self Care Activity When You Leave the Hospital Resume pre-hospital activity Diet Instructions Resume your pre-hospital diet Assessment AND Plan Nausea vomiting and diarrhea Present on Admission: Yes No evid of acute infection. Probably secondary to IBS-constipation. GI input noted. 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 Resolved with hydration Overweight Present on Admission: Yes Hiatal hernia without gangrene and obstruction Present on Admission: Yes GERD (gastroesophageal reflux disease) Present on Admission: Yes On PPI at home. History of malignant carcinoid tumor of small intestine Present on Admission: Yes Irritable bowel syndrome with constipation Present on Admission: Status not on file Additional Provider to Provider Information: Treatment Team: Attending Provider: Theresa Matthews MD Physician Dealer Sales Rep: Indigo Sr PA-C Transitions of Care Critical Issues: SPECIALIST FOLLOW-UP: GI LABS AND PROCEDURES PENDING AT DISCHARGE: No pending results. FOLLOW-UP APPOINTMENTS ALREADY SCHEDULED WITH A [facility] PROVIDER: No future appointments. ALLERGIES Allergen Reactions Asa [Aspirin] Other: See Comments nose bleeds Bactrim [Sulfametho* Swelling Sulfa (Sulfonamide * Swelling Lip swelling DISCHARGE MEDICATION: Medication List CHANGE how you take these medications pantoprazole DR 40 mg tablet Commonly known as: PROTONIX Take 1 tablet by mouth two times a day before meals at 6 am and 4 pm. What changed: medication strength how much to take when to take this potassium chloride 10 mEq tablet Commonly known as: K-TAB Take 1 tablet by mouth once daily. What changed: when to take this CONTINUE taking these medications BENADRYL ALLERGY PO cetirizine 10 mg tablet Commonly known as: ZyrTEC Take 1 tablet by mouth once daily. ergo (more content not included)... [facility] CONSULT PROGon 01-22-2025 CONSULT PROG HNO ID: [id number] Author: SHYANNE SANCHEZ MD Service: Gastroenterology Author Type: Resident Type: Consult Progress Note Filed: 01/22/2025 13:34 Note Text: Attestation signed by Shyanne Sanchez MD at 01/22/2025 1:34 PM [facility] STAFF PHYSICIAN NOTE OF PERSONAL INVOLVEMENT IN CARE I have reviewed the history and physical obtained and documented by my colleague and personally interviewed, examined and reviewed records/data/labs/ra diographs. I personally participated in the trujillo components and I agree with the history/physical examination, data assessment, diagnosis and plan as outlined except where differences are stated below. I have discussed the case and management of the patient's care. IMPRESSION: The patient has shown symptomatic improvement with the use of Protonix, Zofran, and PRN Imodium. It is recommended to hold Motegrel (Motility agent) at the time of discharge. Remainder per primary team. Thank you for this consult. GI will sign off. Please call with questions. Shyanne Sanchez MD Staff, Gastroenterology Gastroenterology Consult Service Progress Note Date of Service: January 22, 2025 Patient: Bony Huang Medical Record: [id number] Reason for Initial Consult: gastroparesis Overnight updates: Patient reports feeling better than yesterday. No further diarrhea, nausea, vomiting, abdominal pain. Patient is able to keep food and liquid down. Impression: # IBS-constipation constipation # Overflow diarrhea 2/2 constipation # Gastroparesis secondary to chronic constipation # Chronic nausea and vomiting possibly 2/2 constipation # Carcinoid tumor of duodenum s/p resection (2007) Patient's symptoms are most likely caused by a combination of IBS-constipation and overflow diarrhea. Her recent EGD and colonoscopy did not show significant abnormality. Based on her symptoms of cyclic constipation followed by multiple watery diarrhea and incontinence, it is most likely overflow diarrhea 2/2 constipation. Her nausea and vomiting are most likely secondary to constipation. Her symptoms of food stuck do not consistent with classic gastroparesis, and is more likely secondary to IBS-constipation. Xray abdomen 01/19/2025 shows no SBO or large stool burden. Will recommend to regular her BMs at this time and can follow up outpatient. Last EGD 10/2023: - Erythematous duodenopathy. Biopsied: Small bowel mucosa with no diagnostic abnormality. - Gastritis. Biopsied: Gastric antral-type and oxyntic-type mucosa with no diagnostic abnormality. - Medium-sized hiatal hernia. Biopsied mid esophagus for EE: Squamous mucosa with no diagnostic abnormality. Last colonoscopy 10/2018: - The distal rectum and anal verge are normal on retroflexion view. - Biopsies were taken with a cold forceps for histology in the entire colon. - No polyps or masses detected. Xray abdomen 01/19/2025: Bowel gas pattern is nonobstructive. There are surgical clips in the right upper quadrant. There are vascular calcifications in the abdomen and pelvis. 01/20: Patient reports no recent antibiotic use, and stool was not greasy or foul-smelling. C. difficile is low on the differential list, however, we will check to rule out C. difficile infection. Will also check expanded stool panel. Patient reports the episodes of diarrhea she is having today is at her baseline. Will stop MiraLAX given no large stool burden showing on x-ray, and can resume in future to regular bowel movements. 01/21: Expanded stool panel and c diff negative Recommendations: Patient is not good at requesting PRN meds. Will Zofran for nausea and vomiting. Patient requested PPI stating it would help her symptoms. Would not recommend a scheduled loperamide in the consideration of her constipation history. Patient has cycles of constipation then diarrhea then vomiting. - Zofran as needed - Pantoprazole 40 mg oral twice daily - MiraLAX as needed when constipated - Imodium as needed for diarrhea - Continue Fibers such as Metamucil for post constipation diarrhea - Follow-up outpatient YOSVANY GOMEZ DO Internal Medicine Resident, PGY-[address] Sanchez. Please see attending's attestation. Subjective: 75-year-old male with a history of dysphagia, carcinoid tumor of duodenum s/p resection (2007), GERD, hiatal hernia, chronic nausea and vomiting, chronic diarrhea, constipation, weight loss, hypothyroidism, presented to the ER for nausea, vomiting, diarrhea. Patient reports Upon seeing patient this morning, she reports having 20 episodes of watery stool with the first 3-4 solid BMs. No blood in stool. Patient reports every episode started with 4 to 5 days of constipation and then progress (more content not included)... Normal [facility] Comprehensive metabolic 2000 panelon 01-22-2025 Albumin [Mass/Vol] 3.6 g/dL Low 3.9-4.9 [facility] Comment on above: Order Comment: Ness jacinto Type: BLOOD SPECIMEN Ordering Facility: [facility] Address: [address] [place] [address] Performed By: #### 5 8410-2 #### [facility] CLIA [id number] [address] [place] [address] [place] ALP [Catalytic activity/Vol] 84 U/L Normal 34-123 [facility] Comment on above: Order Comment: Ness jacinto Type: BLOOD SPECIMEN Ordering Facility: [facility] Address: [address] [place] [address] Performed By: #### 5 8410-2 #### [facility] CLIA [id number] [place] [id number] [place] ALT [Catalytic activity/Vol] 8 U/L Normal 7-38 [facility] Comment on above: Order Comment: Speci men Type: BLOOD SPECIMEN Ordering Facility: [facility] Address: [address] [place] [address] Performed By: #### 5 8410-2 #### [facility] CLIA [id number] [place] [address] [place] Anion gap [Moles/Vol] 14 mmol/L Normal 8-15 [facility] Comment on above: Order Comment: Speci men Type: BLOOD SPECIMEN Ordering Facility: [facility] Address: [address] [place] [address] Performed By: #### 5 8410-2 #### [facility] CLIA [id number] [place] [address] [place] AST [Catalytic activity/Vol] 15 U/L Normal 13-35 [facility] Comment on above: Order Comment: Speci men Type: BLOOD SPECIMEN Ordering Facility: [facility] Address: [address] [place] [address] Performed By: #### 5 8410-2 #### [facility] CLIA [id number] [place] [address] [place] Bilirubin [Mass/Vol] 0.5 mg/dL Normal 0.2-1.3 [facility] Comment on above: Order Comment: Speci men Type: BLOOD SPECIMEN Ordering Facility: [facility] Address: [address] [place] [address] Performed By: #### 5 8410-2 #### [facility] CLIA [id number] [place] [address] [place] Calcium [Mass/Vol] 8.5 mg/dL Normal 8.5-10.2 [facility] Comment on above: Order Comment: Speci men Type: BLOOD SPECIMEN Ordering Facility: [facility] Address: [address] [place], [place] [id number] Performed By: #### 5 8410-2 #### [facility] CLIA [id number] [place] [address] [place] Chloride [Moles/Vol] 104 mmol/L Normal 98-107 [facility] Comment on above: Order Comment: Speci men Type: BLOOD SPECIMEN Ordering Facility: [facility] Address: [address] [place] [address] Performed By: #### 5 8410-2 #### [facility] CLIA [id number] [place] [address] [place] CO2 [Moles/Vol] 19 mmol/L Low 22-30 [facility] Comment on above: Order Comment: Speci men Type: BLOOD SPECIMEN Ordering Facility: [facility] Address: [address] [place] [address] Performed By: #### 5 8410-2 #### [facility] CLIA [id number] [place] [address] [place] Creatinine [Mass/Vol] 0.92 mg/dL Normal 0.58-0.96 [facility] Comment on above: Order Comment: Speci men Type: BLOOD SPECIMEN Ordering Facility: [facility] Address: [address] [place] [address] Performed By: #### 5 8410-2 #### [facility] CLIA [id number] [place] [address] [place] eGFRcr SerPlBld CKD-EPI 2020 65 mL/min/1.73m??? Normal >=60 [facility] Comment on above: Order Comment: Speci men Type: BLOOD SPECIMEN Ordering Facility: [facility] Address: [address] [place] [address] Result Comment: Itzel mated Glomerular Filtration Rate (eGFR) is calculated using the 2020 CKD-EPI creatinine equation. This equation utilizes serum creatinine, sex, and age as parameters. The creatinine assay has traceable calibration to isotope dilution-mass spectrometry. Refer to KDIGO guidelines for clinical interpretation. In patients with unstable renal function, e.g. those with acute kidney injury, the eGFR may not accurately reflect actual GFR. Performed By: #### 5 8410-2 #### [facility] CLIA [id number] [place] [address] [place] Glucose [Mass/Vol] 93 mg/dL Normal 74-99 [facility] Comment on above: Order Comment: Ness jacinto Type: BLOOD SPECIMEN Ordering Facility: [facility] Address: [address] [place] [address] Result Comment: The [place] Diabetes [employer] (ADA) provides guidance for cutoff values for fasting glucose and random glucose. The ADA defines fasting as no caloric intake for at least 8 hours. Fasting plasma glucose results between 100 to 125 mg/dL indicate increased risk for diabetes (prediabetes). Fasting plasma glucose results greater than or equal to 126 mg/dL meet the criteria for diagnosis of diabetes. In the absence of unequivocal hyperglycemia, results should be confirmed by repeat testing. In a patient with classic symptoms of hyperglycemia or hyperglycemic crisis, random plasma glucose results greater than or equal to 200 mg/dL meet the criteria for diagnosis of diabetes. Reference: Standards of Medical Care in Diabetes 2016, [place] [employer] Association. Diabetes Care. 2016.39(Suppl 1). Performed By: #### 5 8410-2 #### [facility] CLIA [id number] [place] [address] [place] Potassium [Moles/Vol] 4.1 mmol/L Normal 3.7-5.1 [facility] Comment on above: Order Comment: Ness jacinto Type: BLOOD SPECIMEN Ordering Facility: [facility] Address: [address] [place] [address] Performed By: #### 5 8410-2 #### [facility] CLIA [id number] [place] [id number] [place] Protein [Mass/Vol] 6.0 g/dL Low 6.3-8.0 [facility] Comment on above: Order Comment: Ness jacinto Type: BLOOD SPECIMEN Ordering Facility: [facility] Address: [address] [place] [address] Performed By: #### 5 8410-2 #### [facility] CLIA [id number] [place] [address] [place] Sodium [Moles/Vol] 137 mmol/L Normal 136-144 [facility] Comment on above: Order Comment: Speci men Type: BLOOD SPECIMEN Ordering Facility: [facility] Address: [address] [place] [address] Performed By: #### 5 8410-2 #### [facility] CLIA [id number] [place] [address] [place] Urea nitrogen [Mass/Vol] 20 mg/dL Normal 7-21 [facility] Comment on above: Order Comment: Speci men Type: BLOOD SPECIMEN Ordering Facility: [facility] Address: [address] [place] [address] Performed By: #### 5 8410-2 #### [facility] CLIA [id number] [place] [address] [place] Magnesium [facility] Greeneon 01-22 Magnesium [Mass/Vol] 1.8 mg/dL Normal 1.7-2.3 [facility] Comment on above: Order Comment: Speci men Type: BLOOD SPECIMEN Ordering Facility: [facility] Address: [address] [place] [address] Performed By: #### 5 8410-2 #### [facility] CLIA [id number] [place] [address] [place] NUTRITIONon 01-22-2025 NUTRITION HNO ID: [id number] Author: ESTHER RAYMOND RD Service: Nutrition Therapy Author Type: Registered Dietitian Type: Nutrition Filed: 01/22/2025 09:53 Note Text: NUTRITION BRIEF NOTE SERVICE DATE: 01/22/2025 Care Plan: Continue current diet Supplements: [employer] 1.4 Monitor and Evaluation: Meet greater than 75% of estimated needs, Monitor fluid/electrolyte balance, Monitor labs, I/Os, vital signs, weight, Monitor bowel function Interval History: [employer] supplement ordered. MNT Billing: $ Routine Care : 1 unit SIGNATURE: Esther Raymond RD DATE: 01/22/2025 TIME: 9:52 AM Normal [facility] CBC panel Auto (Bld)on 01-21 Erythrocyte distribution width (RBC) [Ratio] 12.8 % Normal 11.5-15.0 [facility] Comment on above: Order Comment: Speci men Type: BLOOD SPECIMENOrdering Facility: [facility] Address: [address] [place] [address] Performed By: #### 5 8410-2 ####[facility] [id number] [place] [address] [place] Hematocrit (Bld) [Volume fraction] 46.6 % High 36.0-46.0 [facility] Comment on above: Order Comment: Speci men Type: BLOOD SPECIMENOrdering Facility: [facility] Address: [address] [place] [address] Performed By: #### 5 8410-2 ####[facility] [id number] [place] [id number] [place] Hemoglobin (Bld) [Mass/Vol] 16.0 g/dL High 11.5-15.5 [facility] Comment on above: Order Comment: Speci men Type: BLOOD SPECIMENOrdering Facility: [facility] Address: [address] [place] [address] Performed By: #### 5 8410-2 ####[facility] [id number] [place] [id number] [place] MCH (RBC) [Entitic mass] 28.6 pg Normal 26.0-34.0 [facility] Comment on above: Order Comment: Speci men Type: BLOOD SPECIMENOrdering Facility: [facility] Address: [address] [place] [address] Performed By: #### 5 8410-2 ####[facility] [id number] [place] [id number] [place] MCHC (RBC) [Mass/Vol] 34.3 g/dL Normal 30.5-36.0 [facility] Comment on above: Order Comment: Speci men Type: BLOOD SPECIMENOrdering Facility: [facility] Address: [address] [place] [address] Performed By: #### 5 8410-2 ####[facility] [id number] [place] [id number] [place] MCV (RBC) [Entitic vol] 83.4 fL Normal 80.0-100.0 [facility] Comment on above: Order Comment: Speci men Type: BLOOD SPECIMENOrdering Facility: [facility] Address: [address] [place] [address] Performed By: #### 5 8410-2 ####[facility] [id number] [place] [address] [place] Nucleated RBC (Bld) [#/Vol] 10*3/uL Normal <0.01 [facility] Comment on above: Order Comment: Speci men Type: BLOOD SPECIMENOrdering Facility: [facility] Address: [address] [place] [address] Performed By: #### 5 8410-2 ####[facility] [id number] [place] [address] [place] Platelet mean volume (Bld) [Entitic vol] 10.2 fL Normal 9.0-12.7 [facility] Comment on above: Order Comment: Speci men Type: BLOOD SPECIMENOrdering Facility: [facility] Address: [address] [place] [address] Performed By: #### 5 8410-2 ####[facility] [id number] [place] [address] [place] Platelets (Bld) [#/Vol] 288 10*3/uL Normal 150-400 [facility] Comment on above: Order Comment: Speci men Type: BLOOD SPECIMENOrdering Facility: [facility] Address: [address] [place] [address] Performed By: #### 5 8410-2 ####[facility] [id number] [place] [id number] [place] RBC (Bld) [#/Vol] 5.59 10*6/uL High 3.90-5.20 [facility] Comment on above: Order Comment: Ness ophelia Type: BLOOD SPECIMENOrdering Facility: [facility] Address: [address] [place] [address] Performed By: #### 5 8410-2 ####[facility] [id number] [place] [id number] [place] WBC (Bld) [#/Vol] 10.83 10*3/uL Normal 3.70-11.00 [facility] Comment on above: Order Comment: Cristywilmar jacinto Type: BLOOD SPECIMENOrdering Facility: [facility] Address: [address] [place] [address] Performed By: #### 5 8410-2 ####[facility]IA [id number] [place] [id number] [facility] CONSULT PROGon 01-21-2025 CONSULT PROG HNO ID: [id number] Author: SHYANNE SANCHEZ MD Service: Gastroenterology Author Type: Resident Type: Consult Progress Note Filed: 01/21/2025 15:00 Note Text: Attestation signed by Shyanne Sanchez MD at 01/21/2025 3:00 PM [facility] STAFF PHYSICIAN NOTE OF PERSONAL INVOLVEMENT IN CARE I have reviewed the history and physical obtained and documented by my colleague and personally interviewed, examined and reviewed records/data/labs/ra diographs. I have discussed the case and management of the patient's care. Shyanne Sanchez MD Staff, Gastroenterology Gastroenterology Consult Service Progress Note Date of Service: January 20, 2025 Patient: Bony Huang Medical Record: [id number] Reason for Initial Consult: gastroparesis Overnight updates: Continues to have diarrhea and vomiting. She was very nauseated and was not able to keep food down. She reports not eating yesterday besides apple juice. Imodium PRN was prescribed yesterday, however, patient did not receive it until this morning. Patient reports no abdominal pain. She reports the diarrhea and vomiting were at her baseline. Impression: # IBS-constipation constipation # Overflow diarrhea 2/2 constipation # Gastroparesis secondary to chronic constipation # Chronic nausea and vomiting possibly 2/2 constipation # Carcinoid tumor of duodenum s/p resection (2007) Patient's symptoms are most likely caused by a combination of IBS-constipation and overflow diarrhea. Her recent EGD and colonoscopy did not show significant abnormality. Based on her symptoms of cyclic constipation followed by multiple watery diarrhea and incontinence, it is most likely overflow diarrhea 2/2 constipation. Her nausea and vomiting are most likely secondary to constipation. Her symptoms of food stuck do not consistent with classic gastroparesis, and is more likely secondary to IBS-constipation. Xray abdomen 01/19/2025 shows no SBO or large stool burden. Will recommend to regular her BMs at this time and can follow up outpatient. Last EGD 10/2023: - Erythematous duodenopathy. Biopsied: Small bowel mucosa with no diagnostic abnormality. - Gastritis. Biopsied: Gastric antral-type and oxyntic-type mucosa with no diagnostic abnormality. - Medium-sized hiatal hernia. Biopsied mid esophagus for EE: Squamous mucosa with no diagnostic abnormality. Last colonoscopy 10/2018: - The distal rectum and anal verge are normal on retroflexion view. - Biopsies were taken with a cold forceps for histology in the entire colon. - No polyps or masses detected. Xray abdomen 01/19/2025: Bowel gas pattern is nonobstructive. There are surgical clips in the right upper quadrant. There are vascular calcifications in the abdomen and pelvis. 01/20: Patient reports no recent antibiotic use, and stool was not greasy or foul-smelling. C. difficile is low on the differential list, however, we will check to rule out C. difficile infection. Will also check expanded stool panel. Patient reports the episodes of diarrhea she is having today is at her baseline. Will stop MiraLAX given no large stool burden showing on x-ray, and can resume in future to regular bowel movements. 01/21: Expanded stool panel and c diff negative Recommendations: Patient is not good at requesting PRN meds. Will Zofran for nausea and vomiting. Patient requested PPI stating it would help her symptoms. Would not recommend a scheduled loperamide in the consideration of her constipation history. Patient has cycles of constipation then diarrhea then vomiting. - Loperamide as needed - Zofran 4 mg IV 4 times daily - PPI 40 mg IV twice daily - Hold laxatives - Continue Fibers such as Metamucil to make stool more formed - Regular diet YOSVANY GOMEZ DO Internal Medicine Resident, PGY-[address] Sanchez. Please see attending's attestation. Subjective: 75-year-old male with a history of dysphagia, carcinoid tumor of duodenum s/p resection (2007), GERD, hiatal hernia, chronic nausea and vomiting, chronic diarrhea, constipation, weight loss, hypothyroidism, presented to the ER for nausea, vomiting, diarrhea. Patient reports Upon seeing patient this morning, she reports having 20 episodes of watery stool with the first 3-4 solid BMs. No blood in stool. Patient reports every episode started with 4 to 5 days of constipation and then progressed to diarrhea and dehydration, and then she would start vomiting and triggering her to ER. It cycles every week. Patient also complains of food getting stuck in the middle of the abdomen locating under the left rib cage when she is eating. It happens with most of her meals but not every time. It mostly happens with chunks and (more content not included)... Normal [facility] Comprehensive metabolic 2000 panelon 01-21-2025 Albumin [Mass/Vol] 4.8 g/dL Normal 3.9-4.9 [facility] Comment on above: Order Comment: Speci men Type: BLOOD SPECIMEN Ordering Facility: [facility] Address: [address] [place] [address] Performed By: #### 5 8410-2 #### [facility] CLIA [id number] [place] [address] [place] ALP [Catalytic activity/Vol] 125 U/L High 34-123 [facility] Comment on above: Order Comment: Speci men Type: BLOOD SPECIMEN Ordering Facility: [facility] Address: [address] [place] [address] Performed By: #### 5 8410-2 #### [facility] CLIA [id number] [place] [address] [place] ALT [Catalytic activity/Vol] 12 U/L Normal 7-38 [facility] Comment on above: Order Comment: Speci men Type: BLOOD SPECIMEN Ordering Facility: [facility] Address: [address] [place] [address] Performed By: #### 5 8410-2 #### [facility] CLIA [id number] [place] [address] [place] Anion gap [Moles/Vol] 24 mmol/L High 8-15 [facility] Comment on above: Order Comment: Speci men Type: BLOOD SPECIMEN Ordering Facility: [facility] Address: [address] [place] [address] Performed By: #### 5 8410-2 #### [facility] CLIA [id number] [place] [address] [place] AST [Catalytic activity/Vol] 16 U/L Normal 13-35 [facility] Comment on above: Order Comment: Speci men Type: BLOOD SPECIMEN Ordering Facility: [facility] Address: [address] [place] [address] Performed By: #### 5 8410-2 #### [facility] CLIA [id number] [place] [address] [place] Bilirubin [Mass/Vol] 0.6 mg/dL Normal 0.2-1.3 [facility] Comment on above: Order Comment: Speci men Type: BLOOD SPECIMEN Ordering Facility: [facility] Address: [address] [place] [address] Performed By: #### 5 8410-2 #### [facility] CLIA [id number] [place] [address] [place] Calcium [Mass/Vol] 9.7 mg/dL Normal 8.5-10.2 [facility] Comment on above: Order Comment: Speci men Type: BLOOD SPECIMEN Ordering Facility: [facility] Address: [address] [place] [address] Performed By: #### 5 8410-2 #### [facility] CLIA [id number] [place] [address] [place] Chloride [Moles/Vol] 91 mmol/L Low 98-107 [facility] Comment on above: Order Comment: Speci men Type: BLOOD SPECIMEN Ordering Facility: [facility] Address: [address] [place] [address] Performed By: #### 5 8410-2 #### [facility] CLIA [id number] [place] [address] [place] CO2 [Moles/Vol] 24 mmol/L Normal 22-30 [facility] Comment on above: Order Comment: Speci men Type: BLOOD SPECIMEN Ordering Facility: [facility] Address: [address] [place] [address] Performed By: #### 5 8410-2 #### [facility] CLIA [id number] [place] [address] [place] Creatinine [Mass/Vol] 1.67 mg/dL High 0.58-0.96 [facility] Comment on above: Order Comment: Speci men Type: BLOOD SPECIMEN Ordering Facility: [facility] Address: [address] [place] [address] Performed By: #### 5 8410-2 #### [facility] CLIA [id number] [place] [address] [place] eGFRcr SerPlBld CKD-EPI 2020 32 mL/min/1.73m??? Low >=60 [facility] Comment on above: Order Comment: Ness jacinto Type: BLOOD SPECIMEN Ordering Facility: [facility] Address: [address] [place] [address] Result Comment: Itzel mated Glomerular Filtration Rate (eGFR) is calculated using the 2020 CKD-EPI creatinine equation. This equation utilizes serum creatinine, sex, and age as parameters. The creatinine assay has traceable calibration to isotope dilution-mass spectrometry. Refer to KDIGO guidelines for clinical interpretation. In patients with unstable renal function, e.g. those with acute kidney injury, the eGFR may not accurately reflect actual GFR. Performed By: #### 5 8410-2 #### [facility] CLIA [id number] [place] [address] [place] Glucose [Mass/Vol] 123 mg/dL High 74-99 [facility] Comment on above: Order Comment: Ness jacinto Type: BLOOD SPECIMEN Ordering Facility: [facility] Address: [address] [place] [address] Result Comment: The [place] Diabetes [employer] (ADA) provides guidance for cutoff values for fasting glucose and random glucose. The ADA defines fasting as no caloric intake for at least 8 hours. Fasting plasma glucose results between 100 to 125 mg/dL indicate increased risk for diabetes (prediabetes). Fasting plasma glucose results greater than or equal to 126 mg/dL meet the criteria for diagnosis of diabetes. In the absence of unequivocal hyperglycemia, results should be confirmed by repeat testing. In a patient with classic symptoms of hyperglycemia or hyperglycemic crisis, random plasma glucose results greater than or equal to 200 mg/dL meet the criteria for diagnosis of diabetes. Reference: Standards of Medical Care in Diabetes 2016, [place] [employer] Association. Diabetes Care. 2016.39(Suppl 1). Performed By: #### 5 8410-2 #### [facility] CLIA [id number] [place] [address] [place] Potassium [Moles/Vol] 3.2 mmol/L Low 3.7-5.1 [facility] Comment on above: Order Comment: Speci men Type: BLOOD SPECIMEN Ordering Facility: [facility] Address: [address] [place] [address] Performed By: #### 5 8410-2 #### [facility] CLIA [id number] [place] [address] [place] Protein [Mass/Vol] 8.3 g/dL High 6.3-8.0 [facility] Comment on above: Order Comment: Speci men Type: BLOOD SPECIMEN Ordering Facility: [facility] Address: [address] [place] [address] Performed By: #### 5 8410-2 #### [facility] CLIA [id number] [place] [address] [place] Sodium [Moles/Vol] 139 mmol/L Normal 136-144 [facility] Comment on above: Order Comment: Speci men Type: BLOOD SPECIMEN Ordering Facility: [facility] Address: [address] [place] [address] Performed By: #### 5 8410-2 #### [facility] CLIA [id number] [place] [address] [place] Urea nitrogen [Mass/Vol] 29 mg/dL High 7-21 [facility] Comment on above: Order Comment: Speci men Type: BLOOD SPECIMEN Ordering Facility: [facility] Address: [address] [place] [address] Performed By: #### 5 8410-2 #### [facility] CLIA [id number] [place] [address] [place] Magnesium SerPl-mCncon 01-21 Magnesium [Mass/Vol] 1.8 mg/dL Normal 1.7-2.3 [facility] Comment on above: Order Comment: Speci men Type: BLOOD SPECIMEN Ordering Facility: [facility] Address: [address] [place] [address] Performed By: #### 5 8410-2 #### [facility] CLIA [id number] [place] [address] [place] NURSING PROGon 01-21-2025 NURSING PROG HNO ID: [id number] Author: SETH ORDONEZ, RN Service: Nursing Author Type: Registered Nurse Type: Nursing Progress Note Filed: 01/21/2025 17:31 Note Text: 0730 Per assistant shift supervisor report pt threw up with complain of nausea, Compazine was offered pt refused preferring Zofran, sent update to floor RECONSTRUCTIVE SURGEON including latest serum CREA level, per RECONSTRUCTIVE SURGEON will order IVF and Zofran accordingly, keep pt comfortable. 0955 GI at bedside. 1015 Pt seen and assessed by Primary. 1255 IV access infiltrated, tired to place one with no success, informed ANM. 1400 ANM placed new IV access # 22 left FA. 1600 Pt sleeping, eyes closed, respiration even. Pt NOT in distress, keep pt comfortable. Normal [facility] C diff Tox gens Stl Ql KOREY+p robeon 01-20-2025 C. difficile toxin genes KOREY+probe Ql (Stl) Negative Normal Negative for C. difficile toxin by PCR [facility] Comment on above: Order Comment: Speci men Type: BLOOD SPECIMEN Ordering Facility: [facility] Address: [address] [place] [address] Performed By: #### 5 8410-2 #### [facility] CLIA [id number] [place] [address] [place] CBC panel Auto (Bld)on 01-20 Erythrocyte distribution width (RBC) [Ratio] 12.7 % Normal 11.5-15.0 [facility] Comment on above: Order Comment: Speci men Type: BLOOD SPECIMENOrdering Facility: [facility] Address: [address] [place] [address] Performed By: #### 5 8410-2 ####[facility] [id number] [place] [address] [place] Hematocrit (Bld) [Volume fraction] 40.9 % Normal 36.0-46.0 [facility] Comment on above: Order Comment: Speci men Type: BLOOD SPECIMENOrdering Facility: [facility] Address: [address] [place] [address] Performed By: #### 5 8410-2 ####[facility] [id number] [place] [address] [place] Hemoglobin (Bld) [Mass/Vol] 13.6 g/dL Normal 11.5-15.5 [facility] Comment on above: Order Comment: Speci men Type: BLOOD SPECIMENOrdering Facility: [facility] Address: [address] [place] [address] Performed By: #### 5 8410-2 ####[facility] [id number] [place] [address] [place] MCH (RBC) [Entitic mass] 28.5 pg Normal 26.0-34.0 [facility] Comment on above: Order Comment: Speci men Type: BLOOD SPECIMENOrdering Facility: [facility] Address: [address] [place] [address] Performed By: #### 5 8410-2 ####[facility] [id number] [address] [place] MCHC (RBC) [Mass/Vol] 33.3 g/dL Normal 30.5-36.0 [facility] Comment on above: Order Comment: Speci men Type: BLOOD SPECIMENOrdering Facility: [facility] Address: [address] [place] [address] Performed By: #### 5 8410-2 ####[facility] [id number] [place] [address] [place] MCV (RBC) [Entitic vol] 85.7 fL Normal 80.0-100.0 [facility] Comment on above: Order Comment: Speci men Type: BLOOD SPECIMENOrdering Facility: [facility] Address: [address] [place] [address] Performed By: #### 5 8410-2 ####[facility] [id number] [place] [address] [place] Nucleated RBC (Bld) [#/Vol] 10*3/uL Normal <0.01 [facility] Comment on above: Order Comment: Speci men Type: BLOOD SPECIMENOrdering Facility: [facility] Address: [address] [place] [address] Performed By: #### 5 8410-2 ####[facility]ORYCLIA [id number] [place] [id number] [place] Platelet mean volume (Bld) [Entitic vol] 10.2 fL Normal 9.0-12.7 [facility] Comment on above: Order Comment: Speci men Type: BLOOD SPECIMENOrdering Facility: [facility] Address: [address] [place] [address] Performed By: #### 5 8410-2 ####[facility] [id number] [place] [id number] [place] Platelets (Bld) [#/Vol] 228 10*3/uL Normal 150-400 [facility] Comment on above: Order Comment: Speci men Type: BLOOD SPECIMENOrdering Facility: [facility] Address: [address] [place] [address] Performed By: #### 5 8410-2 ####[facility] [id number] [place] [address] [place] RBC (Bld) [#/Vol] 4.77 10*6/uL Normal 3.90-5.20 [facility] Comment on above: Order Comment: Speci men Type: BLOOD SPECIMENOrdering Facility: [facility] Address: [address] [place] [address] Performed By: #### 5 8410-2 ####[facility]ORYCLIA [id number] [place] [id number] [place] WBC (Bld) [#/Vol] 8.25 10*3/uL Normal 3.70-11.00 [facility] Comment on above: Order Comment: Speci men Type: BLOOD SPECIMENOrdering Facility: [facility] Address: [address] [place] [address] Performed By: #### 5 8410-2 ####[facility] [id number] [address] [facility] CONSULT PROGon 01-20-2025 CONSULT PROG HNO ID: [id number] Author: SHYANNE SANCHEZ MD Service: Gastroenterology Author Type: Resident Type: Consult Progress Note Filed: 01/20/2025 14:20 Note Text: Attestation signed by Shyanne Sanchez MD at 01/20/2025 2:20 PM [facility] STAFF PHYSICIAN NOTE OF PERSONAL INVOLVEMENT IN CARE I have reviewed the history and physical obtained and documented by my colleague and personally interviewed, examined and reviewed records/data/labs/ra diographs. I personally participated in the trujillo components and I agree with the history/physical examination, data assessment, diagnosis and plan as outlined except where differences are stated below. I have discussed the case and management of the patient's care. IMPRESSION: Overnight diarrhea with normal KUB. Recommend holding laxatives and obtaining a stool infectious screen. Continue fiber supplementation and add Imodium as needed for symptom control. Shyanne Sanchez MD Staff, Gastroenterology Gastroenterology Consult Service Progress Note Date of Service: January 20, 2025 Patient: Bony Huang Medical Record: [id number] Reason for Initial Consult: gastroparesis Overnight updates: Patient had 11 episodes of watery diarrhea after restarting diet last night. Patient reports the stool was point liquid. 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 It is brownish color without blood. Not greasy. No foul smell. She was gassy. She reports nauseated without vomiting. No abdominal pain, fever, or recent antibiotics use. Patient reports the episodes of diarrhea she is having today is her baseline. Impression: # IBS-constipation constipation # Overflow diarrhea 2/2 constipation # Gastroparesis secondary to chronic constipation # Chronic nausea and vomiting possibly 2/2 constipation # Carcinoid tumor of duodenum s/p resection (2007) Patient's symptoms are most likely caused by a combination of IBS-constipation and overflow diarrhea. Her recent EGD and colonoscopy did not show significant abnormality. Based on her symptoms of cyclic constipation followed by multiple watery diarrhea and incontinence, it is most likely overflow diarrhea 2/2 constipation. Her nausea and vomiting are most likely secondary to constipation. Her symptoms of food stuck do not consistent with classic gastroparesis, and is more likely secondary to IBS-constipation. Xray abdomen 01/19/2025 shows no SBO or large stool burden. Will recommend to regular her BMs at this time and can follow up outpatient. Last EGD 10/2023: - Erythematous duodenopathy. Biopsied: Small bowel mucosa with no diagnostic abnormality. - Gastritis. Biopsied: Gastric antral-type and oxyntic-type mucosa with no diagnostic abnormality. - Medium-sized hiatal hernia. Biopsied mid esophagus for EE: Squamous mucosa with no diagnostic abnormality. Last colonoscopy 10/2018: - The distal rectum and anal verge are normal on retroflexion view. - Biopsies were taken with a cold forceps for histology in the entire colon. - No polyps or masses detected. Xray abdomen 01/19/2025: Bowel gas pattern is nonobstructive. There are surgical clips in the right upper quadrant. There are vascular calcifications in the abdomen and pelvis. 01/20: Patient reports no recent antibiotic use, and stool was not greasy or foul-smelling. C. difficile is low on the differential list, however, we will check to rule out C. difficile infection. Will also check expanded stool panel. Patient reports the episodes of diarrhea she is having today is at her baseline. Will stop MiraLAX given no large stool burden showing on x-ray, and can resume in future to regular bowel movements. Recommendations: - Expanded stool panel - Check c diff - Loperamide as needed - Stop MiraLAX, can restart to regular BM after diarrhea episodes stopped - Continue Fibers such as Metamucil to make stool more formed - Squatty potty for constipation - Regular diet - Follow-up outpatient YOSVANY GOMEZ DO Internal Medicine Resident, PGY-[address] Sanchez. Please see attending's attestation. Subjective: 75-year-old male with a history of dysphagia, carcinoid tumor of duodenum s/p resection (2007), GERD, hiatal hernia, chronic nausea and vomiting, chronic diarrhea, constipation, weight loss, hypothyroidism, presented to the ER for nausea, vomiting, diarrhea. Patient reports Upon seeing patient this morning, she reports having 20 episodes of watery stool with the first 3-4 solid BMs. No blood in stool. Patient reports every episode started with 4 to 5 days of constipation and then progressed to diarrhea and dehydration, and then she would start vomiting and triggering her to ER. It cycles every week. (more content not included)... Normal [facility] Comprehensive metabolic 2000 panelon 01-20-2025 Albumin [Mass/Vol] 4.2 g/dL Normal 3.9-4.9 [facility] Comment on above: Order Comment: Ness jacinto Type: BLOOD SPECIMEN Ordering Facility: [facility] Address: [address] [place] [address] Performed By: #### 5 8410-2 #### [facility] CLIA [id number] [address] [place] [address] [place] ALP [Catalytic activity/Vol] 95 U/L Normal 34-123 [facility] Comment on above: Order Comment: Ness jacinto Type: BLOOD SPECIMEN Ordering Facility: [facility] Address: [address] [place] [address] Performed By: #### 5 8410-2 #### [facility] CLIA [id number] [address] [place] [address] [place] ALT [Catalytic activity/Vol] 11 U/L Normal 7-38 [facility] Comment on above: Order Comment: Speci men Type: BLOOD SPECIMEN Ordering Facility: [facility] Address: [address] [place] [address] Performed By: #### 5 8410-2 #### [facility] CLIA [id number] [place] [address] [place] Anion gap [Moles/Vol] 14 mmol/L Normal 8-15 [facility] Comment on above: Order Comment: Speci men Type: BLOOD SPECIMEN Ordering Facility: [facility] Address: [address] [place] [address] Performed By: #### 5 8410-2 #### [facility] CLIA [id number] [place] [address] [place] AST [Catalytic activity/Vol] 17 U/L Normal 13-35 [facility] Comment on above: Order Comment: Speci men Type: BLOOD SPECIMEN Ordering Facility: [facility] Address: [address] [place] [address] Performed By: #### 5 8410-2 #### [facility] CLIA [id number] [place] [address] [place] Bilirubin [Mass/Vol] 0.5 mg/dL Normal 0.2-1.3 [facility] Comment on above: Order Comment: Speci men Type: BLOOD SPECIMEN Ordering Facility: [facility] Address: [address] [place] [address] Performed By: #### 5 8410-2 #### [facility] CLIA [id number] [place] [address] [place] Calcium [Mass/Vol] 9.2 mg/dL Normal 8.5-10.2 [facility] Comment on above: Order Comment: Speci men Type: BLOOD SPECIMEN Ordering Facility: [facility] Address: [address] [place] [address] Performed By: #### 5 8410-2 #### [facility] CLIA [id number] [place] [address] [place] Chloride [Moles/Vol] 103 mmol/L Normal 98-107 [facility] Comment on above: Order Comment: Cristyi men Type: BLOOD SPECIMEN Ordering Facility: [facility] Address: [address] [place] [address] Performed By: #### 5 8410-2 #### [facility] CLIA [id number] [place] [address] [place] CO2 [Moles/Vol] 21 mmol/L Low 22-30 [facility] Comment on above: Order Comment: Cristyi men Type: BLOOD SPECIMEN Ordering Facility: [facility] Address: [address] [place] [address] Performed By: #### 5 8410-2 #### [facility] CLIA [id number] [place] [address] [place] Creatinine [Mass/Vol] 0.84 mg/dL Normal 0.58-0.96 [facility] Comment on above: Order Comment: Speci men Type: BLOOD SPECIMEN Ordering Facility: [facility] Address: [address] [place] [address] Performed By: #### 5 8410-2 #### [facility] CLIA [id number] [place] [address] [place] eGFRcr SerPlBld CKD-EPI 2020 73 mL/min/1.73m??? Normal >=60 [facility] Comment on above: Order Comment: Speci men Type: BLOOD SPECIMEN Ordering Facility: [facility] Address: [address] [place] [address] Result Comment: Itzel mated Glomerular Filtration Rate (eGFR) is calculated using the 2020 CKD-EPI creatinine equation. This equation utilizes serum creatinine, sex, and age as parameters. The creatinine assay has traceable calibration to isotope dilution-mass spectrometry. Refer to KDIGO guidelines for clinical interpretation. In patients with unstable renal function, e.g. those with acute kidney injury, the eGFR may not accurately reflect actual GFR. Performed By: #### 5 8410-2 #### [facility] CLIA [id number] [place] [address] [place] Glucose [Mass/Vol] 100 mg/dL High 74-99 [facility] Comment on above: Order Comment: Ness jacinto Type: BLOOD SPECIMEN Ordering Facility: [facility] Address: [address] [place] [address] Result Comment: The [place] Diabetes [employer] (ADA) provides guidance for cutoff values for fasting glucose and random glucose. The ADA defines fasting as no caloric intake for at least 8 hours. Fasting plasma glucose results between 100 to 125 mg/dL indicate increased risk for diabetes (prediabetes). Fasting plasma glucose results greater than or equal to 126 mg/dL meet the criteria for diagnosis of diabetes. In the absence of unequivocal hyperglycemia, results should be confirmed by repeat testing. In a patient with classic symptoms of hyperglycemia or hyperglycemic crisis, random plasma glucose results greater than or equal to 200 mg/dL meet the criteria for diagnosis of diabetes. Reference: Standards of Medical Care in Diabetes 2016, [place] [employer]. Diabetes Care. 2016.39(Suppl 1). Performed By: #### 5 8410-2 #### [facility] CLIA [id number] [place] [address] [place] Potassium [Moles/Vol] 4.1 mmol/L Normal 3.7-5.1 [facility] Comment on above: Order Comment: Ness jacinto Type: BLOOD SPECIMEN Ordering Facility: [facility] Address: [address] [place] [address] Performed By: #### 5 8410-2 #### [facility] CLIA [id number] [place] [address] [place] Protein [Mass/Vol] 6.9 g/dL Normal 6.3-8.0 [facility] Comment on above: Order Comment: Ness jacinto Type: BLOOD SPECIMEN Ordering Facility: [facility] Address: [address] [place] [address] Performed By: #### 5 8410-2 #### [facility] CLIA [id number] [place] [address] [place] Sodium [Moles/Vol] 138 mmol/L Normal 136-144 [facility] Comment on above: Order Comment: Speci men Type: BLOOD SPECIMEN Ordering Facility: [facility] Address: [address] [place] [address] Performed By: #### 5 8410-2 #### [facility] CLIA [id number] [place] [address] [place] Urea nitrogen [Mass/Vol] 12 mg/dL Normal 7-21 [facility] Comment on above: Order Comment: Speci men Type: BLOOD SPECIMEN Ordering Facility: [facility] Address: [address] [place] [address] Performed By: #### 5 8410-2 #### [facility] CLIA [id number] [place] [address] [place] Gastrointestinal pathogens p jasson KOREY+probe (Stl)on 01-20-2025 ADENOVIRUS F 40/41 DNA Not detected Normal Not Detecte d [facility] Comment on above: Order Comment: Speci men Type: BLOOD SPECIMEN Ordering Facility: [facility] Address: [address] [place] [address] Performed By: #### 5 8410-2 #### [facility] CLIA [id number] [place] [address] [place] ASTROVIRUS RNA Not detected Normal Not Detected [facility] Comment on above: Order Comment: Speci men Type: BLOOD SPECIMEN Ordering Facility: [facility] Address: [address] [place] [address] Performed By: #### 5 8410-2 #### [facility] CLIA [id number] [place] [address] [place] C. cayetanensis DNA KOREY+probe Ql (Unsp spec) Not detected Normal Not Detected [facility] Comment on above: Order Comment: Speci men Type: BLOOD SPECIMEN Ordering Facility: [facility] Address: [address] [place] [address] Performed By: #### 5 8410-2 #### [facility] CLIA [id number] [place] [address] [place] Campylobacter sp DNA.diarrheagenic KOREY+probe Ql (Stl) Not detected Normal Not Detected [facility] Comment on above: Order Comment: Speci men Type: BLOOD SPECIMEN Ordering Facility: [facility] Address: [address] [place] [address] Performed By: #### 5 8410-2 #### [facility] CLIA [id number] [place] [address] [place] [employer] [place] Cryptosporidium sp DNA KOREY+probe Ql (Unsp spec) Not detected Normal Not Detected [facility] Comment on above: Order Comment: Speci men Type: BLOOD SPECIMEN Ordering Facility: [facility] Address: [address] [place] [address] Performed By: #### 5 8410-2 #### [facility] CLIA [id number] [address] [place] E. coli O157:H7 DNA KOREY+probe Ql (Unsp spec) Not applicable Normal Not detected [facility] Comment on above: Order Comment: Speci men Type: BLOOD SPECIMEN Ordering Facility: [facility] Address: [address] [place] [address] Performed By: #### 5 8410-2 #### [facility] CLIA [id number] [place] [address] [place] E. coli stx1+stx2 genes KOREY+probe Ql (Stl) Not detected Normal Not Detected [facility] Comment on above: Order Comment: Speci men Type: BLOOD SPECIMEN Ordering Facility: [facility] Address: [address] [place] [address] Performed By: #### 5 8410-2 #### [facility] CLIA [id number] [place] [address] [place] [facility] [place] E. histolytica DNA KOREY+probe Ql (Unsp spec) Not detected Normal Not Detected [facility] Comment on above: Order Comment: [facility]i [facility] Type: BLOOD SPECIMEN Ordering Facility: [facility] Address: [address] [place] [address] Performed By: #### 5 8410-2 #### [facility] CLIA [id number] [place] [address] [place] [employer] [facility] [employer] [facility] [place] ENTEROAGGREGATIVE E. COLI (EAEC) DNA Not detected Normal Not Detected [facility] Comment on above: Order Comment: Speci men Type: BLOOD SPECIMEN Ordering Facility: [facility] Address: [address] [place] [address] Performed By: #### 5 8410-2 #### [facility] CLIA [id number] [place] [address] [place] ENTEROPATHOGENIC E. COLI (EPEC) DNA Not detected Normal Not detected [facility] Comment on above: Order Comment: Speci men Type: BLOOD SPECIMEN Ordering Facility: [facility] Address: [address] [place] [address] Performed By: #### 5 8410-2 #### [facility] CLIA [id number] [place] [address] [place] ENTEROTOXIGENIC E. COLI (ETEC) DNA Not detected Normal Not Detected [facility] Comment on above: Order Comment: Speci men Type: BLOOD SPECIMEN Ordering Facility: [facility] Address: [address] [place] [address] Performed By: #### 5 8410-2 #### [facility] [id number] [place] [address] [place] G. lamblia DNA KOREY+probe Ql (Unsp spec) Not detected Normal Not Detected [facility] Comment on above: Order Comment: Speci men Type: BLOOD SPECIMEN Ordering Facility: [facility] Address: [address] [place] [address] Performed By: #### 5 8410-2 #### [facility] CLIA [id number] [place] [address] [place] NOROVIRUS GI/GII RNA Not detected Normal Not Detected [facility] Comment on above: Order Comment: Speci men Type: BLOOD SPECIMEN Ordering Facility: [facility] Address: [address] [place] [address] Performed By: #### 5 8410-2 #### [facility] CLIA [id number] [place] [address] [place] [employer] [facility] [place] PLESIOMONAS SHIGELLOIDES DNA Not detected Normal Not Detected [facility] Comment on above: Order Comment: Speci men Type: BLOOD SPECIMEN Ordering Facility: [facility] Address: [address] [place] [address] Performed By: #### 5 8410-2 #### [facility] CLIA [id number] [place] [address] [place] ROTAVIRUS A RNA Not detected Normal Not Detected [facility] Comment on above: Order Comment: Speci men Type: BLOOD SPECIMEN Ordering Facility: [facility] Address: [address] [place] [address] Performed By: #### 5 8410-2 #### [facility] CLIA [id number] [place] [address] [place] Salmonella sp DNA KOREY+probe Ql (Unsp spec) Not detected Normal Not Detected [facility] Comment on above: Order Comment: Speci men Type: BLOOD SPECIMEN Ordering Facility: [facility] Address: [address] [place] [address] Performed By: #### 5 8410-2 #### [facility] CLIA [id number] [address] [place] SAPOVIRUS (GENOGROUPS I, II, IV, V) RNA Not detected Normal Not Detected [facility] Comment on above: Order Comment: Speci men Type: BLOOD SPECIMEN Ordering Facility: [facility] Address: [address] [place] [address] Performed By: #### 5 8410-2 #### [facility] CLIA [id number] [place] [address] [place] Shigella species+EIEC invasion plasmid antigen H ipaH gene KOREY+probe Ql (Stl) Not detected Normal Not Detected [facility] Comment on above: Order Comment: Speci men Type: BLOOD SPECIMEN Ordering Facility: [facility] Address: [address] [place] [address] Performed By: #### 5 8410-2 #### [facility] CLIA [id number] [place] [address] [place] V. cholerae DNA KOREY+probe Ql (Unsp spec) Not detected Normal Not Detected [facility] Comment on above: Order Comment: Speci men Type: BLOOD SPECIMEN Ordering Facility: [facility] Address: [address] [place] [address] Performed By: #### 5 8410-2 #### [facility] CLIA [id number] [place] [address] [place] Vibrio sp DNA KOREY+probe Nom (Unsp spec) Not detected Normal Not Detected [facility] Comment on above: Order Comment: Speci men Type: BLOOD SPECIMEN Ordering Facility: [facility] Address: [address] [place] [address] Performed By: #### 5 8410-2 #### [facility] CLIA [id number] [place] [address] [place] Yersinia sp DNA KOREY+probe Nom (Unsp spec) Not detected Normal Not Detected [facility] Comment on above: Order Comment: Speci men Type: BLOOD SPECIMEN Ordering Facility: [facility] Address: [address] [place] [address] Performed By: #### 5 8410-2 #### [facility] CLIA [id number] [place] [address] [place] Magnesium SerPl-mCncon 01-20 Magnesium [Mass/Vol] 1.8 mg/dL Normal 1.7-2.3 [facility] Comment on above: Order Comment: Speci men Type: BLOOD SPECIMEN Ordering Facility: [facility] Address: [address] [place] [address] Performed By: #### 5 8410-2 #### [facility] CLIA [id number] [place] [address] [place] ALLIED HEALTHon 01-19-2025 ALLIED HEALTH HNO ID: [id number] Author: RITA MCCORMACK RT(R) Service: Radiology Author Type: Lithographic Etcher Type: Allied Health Filed: 01/19/2025 12:58 Note Text: Radiology Service Progress Note PATIENT NAME: Bony Huang DATE OF SERVICE: January 19, 2025 TIME: 12:58 PM PATIENT IDENTITY VERIFICATION COMPLETED USING TWO (2) IDENTIFIERS: Name and Date of confirmed by patient verbally and Name and Date of confirmed by identification band. FALL SCREENING: Has the patient had 2 falls in the last year or 1 fall with injury or currently using an Ambulatory Assistive Device (Walker, Cane, Wheelchair, Crutches, etc.)? Inpatient: Screened on floor PATIENT GENDER DATA: Assigned female at . status: : No status: NO. PATIENT RELEVANT IMPLANT DATA REVIEWED: Not Applicable PATIENT PRESENTS WITH AN IMPLANTABLE OR ATTACHED FIELD SERVICE TECHNICIAN: No RADIOLOGY DEPARTMENT: General X-ray: Exam(s) Completed: Abdomen X-Ray: Abdomen PERIPHERAL IV DATA: Not applicable SIGNED BY: RT Casey(R) January 19, 2025 12:58 PM Normal [facility] CBC panel Auto (Bld)on 01-19 Erythrocyte distribution width (RBC) [Ratio] 13.1 % Normal 11.5-15.0 [facility] Comment on above: Order Comment: Ness jacinto Type: BLOOD SPECIMEN Ordering Facility: [facility] Address: [address] [place] [address] Performed By: #### 5 8410-2 #### [facility] CLIA [id number] [place] [address] [place] Hematocrit (Bld) [Volume fraction] 38.1 % Normal 36.0-46.0 [facility] Comment on above: Order Comment: Ness jacinto Type: BLOOD SPECIMEN Ordering Facility: [facility] Address: [address] [place] [address] Performed By: #### 5 8410-2 #### [facility] CLIA [id number] [address] [place] [address] [place] Hemoglobin (Bld) [Mass/Vol] 12.6 g/dL Normal 11.5-15.5 [facility] Comment on above: Order Comment: Ness jacinto Type: BLOOD SPECIMEN Ordering Facility: [facility] Address: [address] [place] [address] Performed By: #### 5 8410-2 #### [facility] CLIA [id number] [place] [address] [place] MCH (RBC) [Entitic mass] 28.5 pg Normal 26.0-34.0 [facility] Comment on above: Order Comment: Speci men Type: BLOOD SPECIMEN Ordering Facility: [facility] Address: [address] [place] [address] Performed By: #### 5 8410-2 #### [facility] CLIA [id number] [place] [address] [place] MCHC (RBC) [Mass/Vol] 33.1 g/dL Normal 30.5-36.0 [facility] Comment on above: Order Comment: Speci men Type: BLOOD SPECIMEN Ordering Facility: [facility] Address: [address] [place] [address] Performed By: #### 5 8410-2 #### [facility] CLIA [id number] [place] [address] [place] MCV (RBC) [Entitic vol] 86.2 fL Normal 80.0-100.0 [facility] Comment on above: Order Comment: Speci men Type: BLOOD SPECIMEN Ordering Facility: [facility] Address: [address] [place] [address] Performed By: #### 5 8410-2 #### [facility] CLIA [id number] [place] [address] [place] Nucleated RBC (Bld) [#/Vol] 10*3/uL Normal <0.01 [facility] Comment on above: Order Comment: Speci men Type: BLOOD SPECIMEN Ordering Facility: [facility] Address: [address] [place] [address] Performed By: #### 5 8410-2 #### [facility] CLIA [id number] [place] [address] [place] Platelet mean volume (Bld) [Entitic vol] 10.0 fL Normal 9.0-12.7 [facility] Comment on above: Order Comment: Ness jacinto Type: BLOOD SPECIMEN Ordering Facility: [facility] Address: [address] [place] [address] Performed By: #### 5 8410-2 #### [facility] CLIA [id number] [place] [id number] [place] Platelets (Bld) [#/Vol] 228 10*3/uL Normal 150-400 [facility] Comment on above: Order Comment: Ness jacinto Type: BLOOD SPECIMEN Ordering Facility: [facility] Address: [address] [place] [address] Performed By: #### 5 8410-2 #### [facility] CLIA [id number] [place] [address] [place] RBC (Bld) [#/Vol] 4.42 10*6/uL Normal 3.90-5.20 [facility] Comment on above: Order Comment: Cristyi ophelia Type: BLOOD SPECIMEN Ordering Facility: [facility] Address: [address] [place] [address] Performed By: #### 5 8410-2 #### [facility] CLIA [id number] [place] [address] [place] WBC (Bld) [#/Vol] 5.01 10*3/uL Normal 3.70-11.00 [facility] Comment on above: Order Comment: Ness jacinto Type: BLOOD SPECIMEN Ordering Facility: [facility] Address: [address] [place] [address] Performed By: #### 5 8410-2 #### [facility] CLIA [id number] [place] [address] [facility] CONSULTon 01-19-2025 CONSULT HNO ID: [id number] Author: SHYANNE SANCHEZ MD Service: Gastroenterology Author Type: Resident Type: Consults Filed: 01/20/2025 10:59 Note Text: Attestation signed by Shyanne Sanchez MD at 01/20/2025 10:59 AM (Updated) [facility] STAFF PHYSICIAN NOTE OF PERSONAL INVOLVEMENT IN CARE I have reviewed the history and physical obtained and documented by my colleague and personally interviewed, examined and reviewed records/data/labs/ra diographs. I personally participated in the trujillo components and I agree with the history/physical examination, data assessment, diagnosis and plan as outlined except where differences are stated below. I have discussed the case and management of the patient's care. IMPRESSION: The patient has gastroparesis likely secondary to chronic constipation, characterized by straining, incomplete evacuation, and episodic abdominal cramping associated with defecation. The patient presented during an acute episode, without evidence of gastrointestinal bleeding. Symptoms resolved following defecation. The patient is currently maintained on Motegrity. Recommend initiating titrated Miralax, up to three caps daily as tolerated, along with fiber supplementation and use of a Squatty Potty to aid evacuation. Follow-up in the outpatient setting is advised to discuss potential alternatives to Motegrity, including Linzess or Amitiza. Findings and symptom pattern are suggestive of IBS-C. Shyanne Sanchez MD Staff, Gastroenterology INITIAL CONSULT GASTROENTEROLOGY SERVICE DATE: January 19, 2025 SERVICE TIME: 10:30 Am CONSULTING SERVICE: Gastroenterology REASON FOR CONSULT: gastroparesis HPI: 75-year-old male with a history of dysphagia, carcinoid tumor of duodenum s/p resection (2007), GERD, hiatal hernia, chronic nausea and vomiting, chronic diarrhea, constipation, weight loss, hypothyroidism, presented to the ER for nausea, vomiting, diarrhea. Patient reports Upon seeing patient this morning, she reports having 20 episodes of watery stool with the first 3-4 solid BMs. No blood in stool. Patient reports every episode started with 4 to 5 days of constipation and then progressed to diarrhea and dehydration, and then she would start vomiting and triggering her to ER. It cycles every week. Patient also complains of food getting stuck in the middle of the abdomen locating under the left rib cage when she is eating. It happens with most of her meals but not every time. It mostly happens with chunks and pills. She tried to blend everything into liquid which helped a little bit. Patient reports when the episode happens, it would trigger her to vomit. Per chart review, patient was doing well after the carcinoid surgery until 2018. She was initially started on PPI and had dramatic improvement. Patient was diagnosed with gastroparesis in 2019 with gastric emptying study showing 32% rotation at [address] Cantu outpatient. She takes Prucalopride for constipation but would hold it if she has diarrhea. Impression: # IBS-constipation constipation # Overflow diarrhea 2/2 constipation # Chronic nausea and vomiting possibly 2/2 constipation # Carcinoid tumor of duodenum s/p resection (2007) Patient's symptoms are most likely caused by a combination of IBS-constipation and overflow diarrhea. Her recent EGD and colonoscopy did not show significant abnormality. Based on her symptoms of cyclic constipation followed by multiple watery diarrhea and incontinence, it is most likely overflow diarrhea 2/2 constipation. Her nausea and vomiting are most likely secondary to constipation. Her symptoms of food stuck do not consistent with classic gastroparesis, and is more likely secondary to IBS-constipation. Xray abdomen 01/19/2025 shows no SBO or large stool burden. Will recommend to regular her BMs at this time and can follow up outpatient. Last EGD 10/2023: - Erythematous duodenopathy. Biopsied: Small bowel mucosa with no diagnostic abnormality. - Gastritis. Biopsied: Gastric antral-type and oxyntic-type mucosa with no diagnostic abnormality. - Medium-sized hiatal hernia. Biopsied mid esophagus for EE: Squamous mucosa with no diagnostic abnormality. Last colonoscopy 10/2018: - The distal rectum and anal verge are normal on retroflexion view. - Biopsies were taken with a cold forceps for histology in the entire colon. - No polyps or masses detected. Xray abdomen 01/19/2025: Bowel gas pattern is nonobstructive. There are surgical clips in the right upper quadrant. There are vascular calcifications in the abdomen and pelvis. Recommendations: - X-ray abdomen ordered and resulted - MiraLAX - Fibers such as Metamucil - Squatty potty - Can restart her regular diet - Stable to discharge from (more content not included)... Normal [facility] Comprehensive metabolic 2000 panelon 01-19-2025 Albumin [Mass/Vol] 3.7 g/dL Low 3.9-4.9 [facility] Comment on above: Order Comment: Speci men Type: BLOOD SPECIMENOrdering Facility: [facility] Address: [address] [place] [address] Performed By: #### 1 9123-9, 86681-3 ####[facility] [id number] [place] [address] [place] ALP [Catalytic activity/Vol] 84 U/L Normal 34-123 [facility] Comment on above: Order Comment: Speci men Type: BLOOD SPECIMENOrdering Facility: [facility] Address: [address] [place] [address] Performed By: #### 1 9123-9, 90683-2 ####[facility] [id number] [place] [address] [place] ALT [Catalytic activity/Vol] 9 U/L Normal 7-38 [facility] Comment on above: Order Comment: Speci men Type: BLOOD SPECIMENOrdering Facility: [facility] Address: [address] [place] [address] Performed By: #### 1 9123-9, 71798-0 ####[facility] [id number] [place] [id number] [place] Anion gap [Moles/Vol] 11 mmol/L Normal 8-15 [facility] Comment on above: Order Comment: Speci men Type: BLOOD SPECIMENOrdering Facility: [facility] Address: [address] [place] [address] Performed By: #### 1 9123-9, 18938-8 ####[facility] [id number] [place] [id number] [place] AST [Catalytic activity/Vol] 15 U/L Normal 13-35 [facility] Comment on above: Order Comment: Speci men Type: BLOOD SPECIMENOrdering Facility: [facility] Address: [address] [place] [address] Performed By: #### 1 9123-9, 02698-3 ####[facility] [id number] [place] [id number] [place] Bilirubin [Mass/Vol] 0.6 mg/dL Normal 0.2-1.3 [facility] Comment on above: Order Comment: Speci men Type: BLOOD SPECIMENOrdering Facility: [facility] Address: [address] [place] [address] Performed By: #### 1 9123-9, 92273-8 ####[facility] [id number] [place] [address] [place] Calcium [Mass/Vol] 8.7 mg/dL Normal 8.5-10.2 [facility] Comment on above: Order Comment: Speci men Type: BLOOD SPECIMENOrdering Facility: [facility] Address: [address] [place] [address] Performed By: #### 1 9123-9, 86024-7 ####[facility] [id number] [place] [id number] [place] Chloride [Moles/Vol] 103 mmol/L Normal 98-107 [facility] Comment on above: Order Comment: Speci men Type: BLOOD SPECIMENOrdering Facility: [facility] Address: [address] [place] [address] Performed By: #### 1 9123-9, 13078-8 ####[facility]IA [id number] [place] [id number] [place] CO2 [Moles/Vol] 26 mmol/L Normal 22-30 [facility] Comment on above: Order Comment: Ness jacinto Type: BLOOD SPECIMENOrdering Facility: [facility] Address: [address] [place] [address] Performed By: #### 1 9123-9, 35232-3 ####[facility]ORY[facility]IA [id number] [place] [id number] [place] Creatinine [Mass/Vol] 1.05 mg/dL High 0.58-0.96 [facility] Comment on above: Order Comment: Ness jacinto Type: BLOOD SPECIMENOrdering Facility: [facility] Address: [address] [place] [address] Performed By: #### 1 9123-9, ####[facility]ORYCLIA [id number] [place] [id number] [place] eGFRcr SerPlBld CKD-EPI 2020 56 mL/min/1.73m??? Low >=60 [facility] Comment on above: Order Comment: Ness jacinto Type: BLOOD SPECIMENOrdering Facility: [facility] Address: [address] [place] [address] Result Comment: Itzel mated Glomerular Filtration Rate (eGFR) is calculated using the 2020 CKD-EPI creatinine equation. This equation utilizes serum creatinine, sex, and age as parameters. The creatinine assay has traceable calibration to isotope dilution-mass spectrometry. Refer to KDIGO guidelines for clinical interpretation. In patients with unstable renal function, e.g. those with acute kidney injury, the eGFR may not accurately reflect actual GFR. Performed By: #### 1 9123-9, ####[facility]ORYCLIA [id number] [place] [address] [place] Glucose [Mass/Vol] 99 mg/dL Normal 74-99 [facility] Comment on above: Order Comment: Ness ophelia Type: BLOOD SPECIMENOrdering Facility: [facility] Address: [address] [place] [address] Result Comment: The [place] [employer] (ADA) provides guidance for cutoff values for fasting glucose and random glucose. The ADA defines fasting as no caloric intake for at least 8 hours. Fasting plasma glucose results between 100 to 125 mg/dL indicate increased risk for diabetes (prediabetes). Fasting plasma glucose results greater than or equal to 126 mg/dL meet the criteria for diagnosis of diabetes. In the absence of unequivocal hyperglycemia, results should be confirmed by repeat testing. In a patient with classic symptoms of hyperglycemia or hyperglycemic crisis, random plasma glucose results greater than or equal to 200 mg/dL meet the criteria for diagnosis of diabetes. Reference: Standards of Medical Care in Diabetes 2016, [place] [employer]. Diabetes Care. 2016.39(Suppl 1). Performed By: #### 1 9123-9, ####[facility]ATORYCLIA [id number] [place] [address] [place] Potassium [Moles/Vol] 3.8 mmol/L Normal 3.7-5.1 [facility] Comment on above: Order Comment: Ness jacinto Type: BLOOD SPECIMENOrdering Facility: [facility] Address: [address] [place] [address] Performed By: #### 1 91239, ####[facility] [id number] [place] [address] [place] Protein [Mass/Vol] 6.2 g/dL Low 6.3-8.0 [facility] Comment on above: Order Comment: Ness jacinto Type: BLOOD SPECIMENOrdering Facility: [facility] Address: [address] [place] [address] Performed By: #### 1 239, ####[facility]ORY[facility]IA [id number] [place] [address] [place] Sodium [Moles/Vol] 140 mmol/L Normal 136-144 [facility] Comment on above: Order Comment: Ness jacinto Type: BLOOD SPECIMENOrdering Facility: [facility] Address: [address] [place] [address] Performed By: #### 1 9123-9, ####[facility]ORYCLIA [id number] [place] [address] [place] Urea nitrogen [Mass/Vol] 15 mg/dL Normal 7-21 [facility] Comment on above: Order Comment: Speci men Type: BLOOD SPECIMENOrdering Facility: [facility] Address: [facility] [place] [address] Performed By: #### 1 9123-9, 56745-0 ####[facility]ORYCLIA [id number] [place] [id number] [place] Magnesium SerPl-mCncon 01-19 Magnesium [Mass/Vol] 1.9 mg/dL Normal 1.7-2.3 [facility] Comment on above: Order Comment: Speci men Type: BLOOD SPECIMENOrdering Facility: [facility] Address: [address] [place] [address] Performed By: #### 1 9123-9, 36005-5 ####[facility]ORYCLIA [id number] [place] [id number] [place] NURSING PROGon 01-19-2025 NURSING PROG HNO ID: [id number] Author: RIA XAVIER RN Service: Nursing Author Type: Registered Nurse Type: Nursing Progress Note Filed: 01/19/2025 19:08 Note Text: Nursing Progress Note: 01/19/25 0800 Pt was resting, VS will be taken and medications will be given. Assessment was conducted, safety precautions taken. NPO status maintained. Pt still has not had diarrhea. 1000 Pt was resting, no needs. GI doctor at the bedside. 1020 Tele was d/c'd. Pt will remain NPO. 1200 Pt was resting, safety precautions taken. 1400 Pt was resting, will continue to monitor. 1540 Meal tray was ordered for the patient. 1600 Pt was resting, no needs at this time. 1710 Dr. Matthews was messaged to inquire about d/c. 1910 Report was given to oncoming nurse. [facility] NUTRITIONon 01-19-2025 NUTRITION HNO ID: [id number] Author: ESTHER RAYMOND RD Service: Nutrition Therapy Author Type: Registered Dietitian Type: Nutrition Filed: 01/19/2025 14:49 Note Text: NUTRITION THERAPY INITIAL ASSESSMENT SERVICE DATE: 01/19/2025 SERVICE TIME: Start Time: 1242 Nutrition Assessment: Recommended Malnutrition Diagnosis: No Malnutrition Identified In the context of: Chronic Illness or Injury Nutrition Diagnosis: Problem: Altered GI function Related to: Chronic illness As evidenced by: Medical condition, Food/nutrition related history, Patient/family self-report Care Plan: Follow for diet advancement to goal Supplements: [place] 1.4 (Add when diet upgraded) Monitor and Evaluation: Meet greater than 75% of estimated needs, Monitor fluid/electrolyte balance, Monitor labs, I/Os, vital signs, weight, Monitor bowel function HPI: 75 y/o female with past medical history of GERD, hypothyroidism, gastroparesis who presented to [facility] as a transfer from another hospital with complaint of nausea, vomiting, and diarrhea. Intake History: Nutrition Intake Prior to Admission: Greater than 75% estimated energy needs greater than or equal to 1 month (Patient provided detailed diet history, typically has 3 meals/day and snacks, has soft food or entrees blended. Snacks include yogurt, pudding, and ensure) Dosing Weight: 66.7 kg (147 lb) Dosing Weight Type: Admit weight Estimated kilocalorie needs: 1482-3817 Calorie Calculation Method: 25-30 kcals/kg Estimated protein needs (grams): 67-80 Grams protein determined by: 1.0 - 1.2 g/kg Diet Orders (From admission, onward) Start Ordered 01/19/25 0001 DIET NPO AFTER MIDNIGHT Question: NPO Restrictions Answer: EXCEPT MEDS 01/18/25 1605 Anthropometrics: Height: 157.5 cm (5' 2) Weight: 67 kg (147 lb 11.3 oz) Usual Weight: 68.9 kg (152 lb) 12/29/24 Usual Weight Obtained From: Chart Review Body mass index is 27.02 kg/m?. Weight change percentage over time: -3% over < 1 month Weight Change: Potentially clinically significant but does not meet criteria to support malnutrition diagnosis Physical Exam: Subcutaneous fat loss: No Subcutaneous Fat Loss Muscle loss: No Muscle Loss Potential micronutrient deficiency: No deficiency identified Edema/Ascites: No edema GI Symptoms: Nausea, Vomiting Functional Status: No Change Potential Signs of Inflammation: Chronic condition, Hypoalbuminemia gastroparesis Lines, Drains, and Airways None MNT Billing: $ Initial Assessment: 1 unit Time Spent (mins): 12 SIGNATURE: Esther Raymond RD PATIENT NAME: Bony Huang DATE: January 19, 2025 TIME: 2:48 PM Normal [facility] XR ABDOMEN 1V SUPINEon 01-19 XR ABDOMEN 1V SUPINE * * *Final Report* * * DATE OF EXAM: Jan 19 2025 12:59PM SPX 5289 - XR ABDOMEN 1V SUPINE / PROCEDURE REASON: Constipation * * * * Physician Interpretation * * * * RESULT: EXAM:XR ABDOMEN 1V SUPINE HISTORY: Constipation COMPARISON:September 11, 2022 IMPRESSION:Bowel gas pattern is nonobstructive. There are surgical clips in the right upper quadrant. There are vascular calcifications in the abdomen and pelvis. Visualized lung bases are clear. There are mild degenerative changes in the lower lumbar spine and bilateral sacroiliac joints. Transcribed Using Voice Recognition Transcribe Date/Time: Jan 19 2025 1:07P Dictated by: ALVIN VARGHESE MD This examination was interpreted and the report reviewed and electronically signed by: ALVIN VARGHESE MD on Jan 19 2025 1:07PM EST [id number] CN Normal [facility] CBC + DIFFon 01-18-2025 Baso # 0.03 x10EE3/UL Normal 0.00 - 0.10 [facility] Comment on above: Performed By: #### 2 20328 ####[place] [address] Basophils/100 WBC (Bld) 0.3 % Normal 0.0 - 2.0 [facility] Comment on above: Performed By: #### 2 19085 ####[facility],[address] [place] [address] CBC + DIFF Normal [facility] Comment on above: Result Comment: CBC- COMPLETE BLOOD COUNT Performed By: #### 2 80654 ####[facility],[address] [place], [place] [address] EO # 0.07 x10EE3/UL Normal 0.00 - 0.50 [facility] Comment on above: Performed By: #### 2 27834 ####[facility],[address] [place] [address] 24677 Eosinophils/100 WBC (Bld) 0.7 % Normal 0.0 - 7.0 [facility] Comment on above: Performed By: #### 2 19956 ####[facility],[address] [place], [place] [address] Erythrocyte distribution width (RBC) [Ratio] 13.8 % Normal 12.0 - 15.6 [facility] Comment on above: Performed By: #### 2 53697 ####[facility],[address] [place] [address] Hematocrit (Bld) [Volume fraction] 49.1 % High 34.0 - 46.0 [facility] Comment on above: Performed By: #### 2 90167 ####[place] [address] Hemoglobin (Bld) [Mass/Vol] 16.8 g/dL High 12.0 - 16.0 [facility] Comment on above: Performed By: #### 2 27063 ####[facility],[address] [place] [address] 86774 Lymph # 1.41 x10EE3/UL Normal 0.80 - 2.80 [facility] Comment on above: Performed By: #### 2 49319 ####[facility],[address] [place], [place] [address] Lymphocytes/100 WBC (Bld) 13.1 % Low 20.0 - 45.0 [facility] Comment on above: Performed By: #### 2 51585 ####[address] [address] MANUAL DIFF N/A Normal [facility] Comment on above: Performed By: #### 2 66944 ####[address] [address] MCH (RBC) [Entitic mass] 29 pg Normal 27 - 33 [facility] Comment on above: Performed By: #### 2 81980 ####[facility],[address] [place] [address] 42600 MCHC 34 X10 3 Normal 32 - 36 [facility] Comment on above: Performed By: #### 2 80509 ####[facility],[address] [place] [address] 61851 MCV (RBC) [Entitic vol] 84 fL Normal 80 - 99 [facility] Comment on above: Performed By: #### 2 10539 ####[facility],[address] [place] [address] [place] # 0.71 x10EE3/UL Normal 0.20 - 1.00 [facility] Comment on above: Performed By: #### 2 20850 ####[facility],[address] [place] [address] 35906 MONOS % 6.7 % Normal 0.0 - 10.0 [facility] Comment on above: Performed By: #### 2 58733 ####[facility],[address] [place] [address] 58449 Morphology Julian (Bld) [Interp] N/A Normal [facility] Comment on above: Performed By: #### 2 24985 ####[facility],[address] [place] [address] 00365 Neut # 8.51 x10EE3/UL High 1.50 - 7.10 [facility] Comment on above: Performed By: #### 2 89076 ####[facility],[address] [place] [address] 52361 Neutrophils/100 WBC (Bld) 79.3 % High 46.0 - 76.0 [facility] Comment on above: Performed By: #### 2 02499 ####[facility],[address] [place] [address] 20239 PLATELET 336 x10EE3/UL Normal 150 - 450 [facility] Comment on above: Performed By: #### 2 35989 ####[facility],[address] [place] [address] 50475 Platelet mean volume (Bld) [Entitic vol] 7.7 fL Normal 6.6 - 10.5 [facility] Comment on above: Result Comment: AUTO MATED DIFFERENTIAL Performed By: #### 2 21243 ####[facility],[address] [place], [place] [address] RBC 5.82 x 10EE6/UL High 4.10 - 5.30 [facility] Comment on above: Performed By: #### 2 97734 ####[facility],[address] [place], [place] [address] WBC 10.7 x 10EE3/UL Normal 4.5 - 10.8 [facility] Comment on above: Performed By: #### 2 64159 ####[facility],[address] [place], [place] [address] CBC panel Auto (Bld)on 01-18 Erythrocyte distribution width (RBC) [Ratio] 13.2 % Normal 11.5-15.0 [facility] Comment on above: Order Comment: Speci men Type: BLOOD SPECIMEN [facility] Address: [address] [place] [address] Performed By: #### 5 8410-2 #### [facility] CLIA [id number] [place] [address] [place] Hematocrit (Bld) [Volume fraction] 37.5 % Normal 36.0-46.0 [facility] Comment on above: Order Comment: Speci men Type: BLOOD SPECIMEN [facility] Address: [address] [place] [address] Performed By: #### 5 8410-2 #### [facility] CLIA [id number] [place] [address] [place] Hemoglobin (Bld) [Mass/Vol] 13.0 g/dL Normal 11.5-15.5 [facility] Comment on above: Order Comment: Speci men Type: BLOOD SPECIMEN [facility] Address: [address] [place] [address] Performed By: #### 5 8410-2 #### [facility] CLIA [id number] [place] [address] [place] MCH (RBC) [Entitic mass] 28.8 pg Normal 26.0-34.0 [facility] Comment on above: Order Comment: Speci men Type: BLOOD SPECIMEN [facility] Address: [address] [place] [address] Performed By: #### 5 8410-2 #### [facility] CLIA [id number] [place] [address] [place] MCHC (RBC) [Mass/Vol] 34.7 g/dL Normal 30.5-36.0 [facility] Comment on above: Order Comment: Speci men Type: BLOOD SPECIMEN [facility] Address: [address] [place] [address] Performed By: #### 5 8410-2 #### [facility] CLIA [id number] [place] [address] [place] MCV (RBC) [Entitic vol] 83.1 fL Normal 80.0-100.0 [facility] Comment on above: Order Comment: Speci men Type: BLOOD SPECIMEN [facility] Address: [address] [place] [address] Performed By: #### 5 8410-2 #### [facility] CLIA [id number] [place] [address] [place] Nucleated RBC (Bld) [#/Vol] 10*3/uL Normal <0.01 [facility] Comment on above: Order Comment: Speci men Type: BLOOD SPECIMEN [facility] Address: [address] [place] [address] Performed By: #### 5 8410-2 #### [facility] CLIA [id number] [place] [address] [place] Platelet mean volume (Bld) [Entitic vol] 9.8 fL Normal 9.0-12.7 [facility] Comment on above: Order Comment: Speci men Type: BLOOD SPECIMEN [facility] Address: [address] [place] [address] Performed By: #### 5 8410-2 #### [facility] CLIA [id number] [place] [address] [place] Platelets (Bld) [#/Vol] 241 10*3/uL Normal 150-400 [facility] Comment on above: Order Comment: Speci men Type: BLOOD SPECIMEN [facility] Address: [address] [place] [address] Performed By: #### 5 8410-2 #### [facility] CLIA [id number] [place] [address] [place] RBC (Bld) [#/Vol] 4.51 10*6/uL Normal 3.90-5.20 [facility] Comment on above: Order Comment: Speci men Type: BLOOD SPECIMEN [facility] Address: [address] [place] [address] Performed By: #### 5 8410-2 #### [facility] CLIA [id number] [place] [address] [place] WBC (Bld) [#/Vol] 9.29 10*3/uL Normal 3.70-11.00 [facility] Comment on above: Order Comment: Speci men Type: BLOOD SPECIMEN [facility] Address: [address] [place] [address] Performed By: #### 5 8410-2 #### [facility] CLIA [id number] [place] [address] [place] CMP with eGFRon 01-18-2025 AGE 75 years Normal [facility] Comment on above: Performed By: #### 2 16267 ####[facility],[address] [place] [address] 34010 Albumin [Mass/Vol] 3.6 g/dL Normal 3.4 - 5.0 [facility] Comment on above: Performed By: #### 2 53712 ####[facility],[address] [place] [address] 19626 Albumin/Globulin [Mass ratio] 1.0 {ratio} Normal 0.9 - 1.6 [facility] Comment on above: Performed By: #### 2 44311 ####[facility],[address] [place] [address] 68944 ALK PHOS 93 U/L Normal 46 - 116 [facility] Comment on above: Performed By: #### 2 66525 ####[facility],[address] [place] [address] 82436 ALT [Catalytic activity/Vol] 16 U/L Normal 16 - 63 [facility] Comment on above: Performed By: #### 2 83454 ####[facility],[address] [place] [address] 65338 Anion gap [Moles/Vol] 17 mmol/L Normal 10 - 20 [facility] Comment on above: Performed By: #### 2 69878 ####[facility],[address] [place] [address] 15679 AST [Catalytic activity/Vol] 20 U/L Normal 13 - 39 [facility] Comment on above: Performed By: #### 2 37125 ####[facility],[address] [place] [address] 20681 B/C RATIO 9 ratio Normal 0 - 30 [facility] Comment on above: Performed By: #### 2 11645 ####[facility],[address] [place] [address] 58443 Bilirubin [Mass/Vol] 0.5 mg/dL Normal 0.2 - 1.0 [facility] Comment on above: Performed By: #### 2 09678 ####[facility],[address] [place] [address] 85470 Calcium [Mass/Vol] 9.0 mg/dL Normal 8.5 - 10.1 [facility] Comment on above: Result Comment: CALC IUM REPEATED Performed By: #### 2 54931 ####[facility],[address] [place] [address] 34544 Chloride [Moles/Vol] 102 mmol/L Normal 98 - 107 [facility] Comment on above: Performed By: #### 2 09050 ####[facility],[address] [place] [address] 19255 CMP with eGFR Normal [facility] Comment on above: Result Comment: COMP REHENSIVE METABOLIC PANEL Performed By: #### 2 73258 ####[facility],[address] [place] [address] 44899 CO2 [Moles/Vol] 28.2 mmol/L Normal 21.0 - 32.0 [facility] Comment on above: Performed By: #### 2 71229 ####[facility],[address] [place] [address] 39747 Creatinine [Mass/Vol] 1.99 mg/dL High 0.55 - 1.02 [facility] Comment on above: Performed By: #### 2 19884 ####[facility],[address] [place] [address] 44177 eGFR 24 ML/MINUTE Low 60 - 999 [facility] Comment on above: Performed By: #### 2 44802 ####[facility],[address] [place] [address] 82259 eGFR(AA) 30 ML/MINUTE Low 60 - 999 [facility] Comment on above: Result Comment: ACCO RDING TO THE NATIONAL KIDNEY DISEASE EDUCATION PROGRAM(NKDE), A NORMAL eGFRIS A VALUE GREATER THAN OR EQUAL TO 60 ML/MIN/1.73 SQ METERS.CHRONIC KIDNEY DISEASE: <60mL/MIN/1.73 SQ METERSKIDNEY FAILURE: <15mL/MIN/1.73 SQ METERSTHIS TEST SHOULD ONLY BE USED FOR PATIENTS 18 YEARS OF AGE AND OLDER. Performed By: #### 2 43424 ####[facility],[address] [place] [address] 60643 Globulin (S) [Mass/Vol] 3.5 g/dL Normal 1.5 - 3.8 [facility] Comment on above: Performed By: #### 2 11625 ####[facility],[address] [place] [address] 12998 Glucose [Mass/Vol] 108 mg/dL High 74 - 106 [facility] Comment on above: Performed By: #### 2 35141 ####[address] [address] Potassium [Moles/Vol] 3.4 mmol/L Low 3.5 - 5.1 [facility] Comment on above: Performed By: #### 2 70985 ####[place] [id number] Protein [Mass/Vol] 7.1 g/dL Normal 6.4 - 8.2 [facility] Comment on above: Performed By: #### 2 11117 ####[facility],[address] [place] [address] 59561 Sodium [Moles/Vol] 144 mmol/L Normal 136 - 145 [facility] Comment on above: Performed By: #### 2 76368 ####[facility],[address] [place] [address] 84257 Urea nitrogen [Mass/Vol] 18 mg/dL Normal 7 - 18 [facility] Comment on above: Performed By: #### 2 98249 ####[address] [address] AGE 75 years Normal [facility] Comment on above: Performed By: #### 2 18699 ####[address] [address] Albumin [Mass/Vol] 4.9 g/dL Normal 3.4 - 5.0 [facility] Comment on above: Performed By: #### 2 90736 ####[facility],[address] [place] [address] 34267 Albumin/Globulin [Mass ratio] 1.1 {ratio} Normal 0.9 - 1.6 [facility] Comment on above: Performed By: #### 2 26936 ####[facility],[address] [place] [address] 64600 ALK PHOS 122 U/L High 46 - 116 [facility] Comment on above: Performed By: #### 2 86635 ####[facility],[address] [place] [address] 15095 ALT [Catalytic activity/Vol] 23 U/L Normal 16 - 63 [facility] Comment on above: Performed By: #### 2 32385 ####[facility],[address] [place] [address] 31801 Anion gap [Moles/Vol] 22 mmol/L High 10 - 20 [facility] Comment on above: Performed By: #### 2 01325 ####[facility],[address] [place] [address] 34985 AST [Catalytic activity/Vol] 20 U/L Normal 13 - 39 [facility] Comment on above: Performed By: #### 2 99532 ####[facility],[address] [place] [address] 65256 B/C RATIO 8 ratio Normal 0 - 30 [facility] Comment on above: Performed By: #### 2 45589 ####[facility],[address] [place] [address] 33423 Bilirubin [Mass/Vol] 0.6 mg/dL Normal 0.2 - 1.0 [facility] Comment on above: Performed By: #### 2 28973 ####[facility],[address] [place] [address] 32391 Calcium [Mass/Vol] 10.6 mg/dL High 8.5 - 10.1 [facility] Comment on above: Performed By: #### 2 91944 ####[facility],[address] [place], [place] [address] Chloride [Moles/Vol] 95 mmol/L Low 98 - 107 [facility] Comment on above: Performed By: #### 2 91582 ####[facility],[address] [place] [address] CMP with eGFR Normal [facility] Comment on above: Result Comment: COMP REHENSIVE METABOLIC PANEL Performed By: #### 2 21854 ####[facility],[address] [place] [address] CO2 [Moles/Vol] 28.2 mmol/L Normal 21.0 - 32.0 [facility] Comment on above: Performed By: #### 2 86795 ####[facility],[address] [place], [place] [address] Creatinine [Mass/Vol] 2.38 mg/dL High 0.55 - 1.02 [facility] Comment on above: Performed By: #### 2 99068 ####[facility],[address] [place], [place] [address] eGFR 20 ML/MINUTE Low 60 - 999 [facility] Comment on above: Performed By: #### 2 90027 ####[facility],[address] [place], [place] [address] eGFR(AA) 24 ML/MINUTE Low 60 - 999 [facility] Comment on above: Result Comment: ACCO RDING TO THE NATIONAL KIDNEY DISEASE EDUCATION PROGRAM(NKDE), A NORMAL eGFRIS A VALUE GREATER THAN OR EQUAL TO 60 ML/MIN/1.73 SQ METERS.CHRONIC KIDNEY DISEASE: <60mL/MIN/1.73 SQ METERSKIDNEY FAILURE: <15mL/MIN/1.73 SQ METERSTHIS TEST SHOULD ONLY BE USED FOR PATIENTS 18 YEARS OF AGE AND OLDER. Performed By: #### 2 07887 ####[facility],[address] [place] [address] 42132 Globulin (S) [Mass/Vol] 4.3 g/dL High 1.5 - 3.8 [facility] Comment on above: Performed By: #### 2 23439 ####[facility],[address] [place] [address] 61549 Glucose [Mass/Vol] 174 mg/dL High 74 - 106 [facility] Comment on above: Performed By: #### 2 63688 ####[facility],[address] [place] [address] 44220 Potassium [Moles/Vol] 3.3 mmol/L Low 3.5 - 5.1 [facility] Comment on above: Performed By: #### 2 40624 ####[facility],[address] [place] [address] 29047 Protein [Mass/Vol] 9.2 g/dL High 6.4 - 8.2 [facility] Comment on above: Performed By: #### 2 54595 ####[facility],[address] [place] [address] 87509 Sodium [Moles/Vol] 142 mmol/L Normal 136 - 145 [facility] Comment on above: Performed By: #### 2 88412 ####[facility],[address] [place] [address] 67099 Urea nitrogen [Mass/Vol] 18 mg/dL Normal 7 - 18 [facility] Comment on above: Performed By: #### 2 88399 ####[facility],[address] [place] [address] 03424 Lynette 01-18-2025 LISY Telephone ([facility]) BONY HUANG ([id number]) 1950 F Date Time Provider Department 01/18/25 JAKE BRITTON [facility] During your visit today, we recorded the following information about you: Allergies As of Date: 01/18/2025 Noted Allergy Reaction ASA (ASPIRIN) 08/28/2012 14 - Other: See Comments Comments: nose bleeds BACTRIM (SULFAMETHOXAZOLE) 02/26/2013 7 - Swelling SULFA (SULFONAMIDE ANTIBIOTICS) 05/28/2013 7 - Swelling Comments: Lip swelling Date Reviewed: 12/29/2024 Reviewed by: Brent Cantu DO - Fully Assessed Prescriptions as of 01/18/2025 - prucalopride 2 mg tablet (MOTEGRITY) Take 2 mg by mouth once daily. - diphenhydramine HCl (BENADRYL ALLERGY PO) Take by mouth. - prucalopride (MOTEGRITY) 2 mg tab tablet Take 2 mg by mouth once daily. - potassium chloride (K-TAB) 10 mEq tablet Take 10 mEq by mouth two times a day. - Cholecalciferol, Vitamin D3, (VITAMIN D-3) 50 mcg (2,000 unit) cap Take by mouth. - levothyroxine (SYNTHROID) 88 mcg tablet Take 88 mcg by mouth daily before breakfast. - B Complex Vitamins capsule Take 1 capsule by mouth daily before breakfast. - promethazine (PHENERGAN) 12.5 mg tablet Take 12.5 mg by mouth every 8 hours as needed for nausea/vomiting. - pantoprazole DR (PROTONIX) 20 mg tablet Take 20 mg by mouth every evening. - cetirizine (ZYRTEC) 10 mg tablet Take 1 tablet by mouth once daily. Problem List As Of Date 01/18/2025 Noted Resolved Allergic rhinitis [J30.9] 08/28/2012 Hypothyroid [E03.9] 08/28/2012 GERD (gastroesophageal reflux disease) [K21.9] 08/28/2012 Hypercholesterolemia [E78.00] 08/28/2012 Nausea and vomiting [R11.2] Nausea with vomiting [R11.2] 05/21/2014 Intractable nausea and vomiting [R11.2] 11/05/2018 11/08/2018 Acquired hypothyroidism [E03.9] 11/05/2018 Diarrhea [R19.7] 11/05/2018 11/08/2018 ALICIA (acute kidney injury) (HCC) [N17.9] 11/05/2018 11/08/2018 Malnutrition of mild degree (HCC) [E44.1] 11/06/2018 Dysphagia [R13.10] 10/16/2023 Encounter Status:Closed by JAKE BRITTON on 01/18/25 Normal [facility] metabolic 2000 panelon 01-18-2025 Albumin [Mass/Vol] 4.0 g/dL Normal 3.9-4.9 [facility] Comment on above: Order Comment: Speci men Type: BLOOD SPECIMEN Ordering Facility: [facility] Address: [address] [place] [address] Performed By: #### 5 8410-2 #### [facility] CLIA [id number] [place] [address] [place] ALP [Catalytic activity/Vol] 93 U/L Normal 34-123 [facility] Comment on above: Order Comment: Speci men Type: BLOOD SPECIMEN Ordering Facility: [facility] Address: [address] [place] [address] Performed By: #### 5 8410-2 #### [facility] CLIA [id number] [place] [address] [place] ALT [Catalytic activity/Vol] 10 U/L Normal 7-38 [facility] Comment on above: Order Comment: Speci men Type: BLOOD SPECIMEN Ordering Facility: [facility] Address: [address] [place] [address] Performed By: #### 5 8410-2 #### [facility] CLIA [id number] [place] [address] [place] Anion gap [Moles/Vol] 15 mmol/L Normal 8-15 [facility] Comment on above: Order Comment: Speci men Type: BLOOD SPECIMEN Ordering Facility: [facility] Address: [address] [place] [address] Performed By: #### 5 8410-2 #### [facility] CLIA [id number] [place] [address] [place] AST [Catalytic activity/Vol] 14 U/L Normal 13-35 [facility] Comment on above: Order Comment: Speci men Type: BLOOD SPECIMEN Ordering Facility: [facility] Address: [address] [place] [address] Performed By: #### 5 8410-2 #### [facility] CLIA [id number] [place] [address] [place] Bilirubin [Mass/Vol] 0.5 mg/dL Normal 0.2-1.3 [facility] Comment on above: Order Comment: Speci men Type: BLOOD SPECIMEN Ordering Facility: [facility] Address: [address] [place] [address] Performed By: #### 5 8410-2 #### [facility] CLIA [id number] [place] [address] [place] Calcium [Mass/Vol] 8.5 mg/dL Normal 8.5-10.2 [facility] Comment on above: Order Comment: Speci men Type: BLOOD SPECIMEN Ordering Facility: [facility] Address: [address] [place] [address] Performed By: #### 5 8410-2 #### [facility] CLIA [id number] [place] [address] [place] Chloride [Moles/Vol] 103 mmol/L Normal 98-107 [facility] Comment on above: Order Comment: Speci men Type: BLOOD SPECIMEN Ordering Facility: [facility] Address: [address] [place] [address] Performed By: #### 5 8410-2 #### [facility] CLIA [id number] [place] [address] [place] CO2 [Moles/Vol] 23 mmol/L Normal 22-30 [facility] Comment on above: Order Comment: Speci men Type: BLOOD SPECIMEN Ordering Facility: [facility] Address: [address] [place] [address] Performed By: #### 5 8410-2 #### [facility] CLIA [id number] [place] [id number] [place] Creatinine [Mass/Vol] 1.46 mg/dL High 0.58-0.96 [facility] Comment on above: Order Comment: Ness jacinto Type: BLOOD SPECIMEN Ordering Facility: [facility] Address: [address] [place] [address] Performed By: #### 5 8410-2 #### [facility] CLIA [id number] [place] [address] [place] eGFRcr SerPlBld CKD-EPI 2020 38 mL/min/1.73m??? Low >=60 [facility] Comment on above: Order Comment: Ness jacinto Type: BLOOD SPECIMEN Ordering Facility: [facility] Address: [address] [place] [address] Result Comment: Itzel mated Glomerular Filtration Rate (eGFR) is calculated using the 2020 CKD-EPI creatinine equation. This equation utilizes serum creatinine, sex, and age as parameters. The creatinine assay has traceable calibration to isotope dilution-mass spectrometry. Refer to KDIGO guidelines for clinical interpretation. In patients with unstable renal function, e.g. those with acute kidney injury, the eGFR may not accurately reflect actual GFR. Performed By: #### 5 8410-2 #### [facility] CLIA [id number] [place] [address] [place] Glucose [Mass/Vol] 93 mg/dL Normal 74-99 [facility] Comment on above: Order Comment: Ness jacinto Type: BLOOD SPECIMEN Ordering Facility: [facility] Address: [address] [place] [address] Result Comment: The [place] Diabetes Association (ADA) provides guidance for cutoff values for fasting glucose and random glucose. The ADA defines fasting as no caloric intake for at least 8 hours. Fasting plasma glucose results between 100 to 125 mg/dL indicate increased risk for diabetes (prediabetes). Fasting plasma glucose results greater than or equal to 126 mg/dL meet the criteria for diagnosis of diabetes. In the absence of unequivocal hyperglycemia, results should be confirmed by repeat testing. In a patient with classic symptoms of hyperglycemia or hyperglycemic crisis, random plasma glucose results greater than or equal to 200 mg/dL meet the criteria for diagnosis of diabetes. Reference: Standards of Medical Care in Diabetes 2016, [place] Diabetes Association. Diabetes Care. 2016.39(Suppl 1). Performed By: #### 5 8410-2 #### [facility] CLIA [id number] [place] [address] [place] Potassium [Moles/Vol] 3.6 mmol/L Low 3.7-5.1 [facility] Comment on above: Order Comment: Cristyi ophelia Type: BLOOD SPECIMEN Ordering Facility: [facility] Address: [address] [place] [address] Performed By: #### 5 8410-2 #### [facility] CLIA [id number] [place] [address] [place] Protein [Mass/Vol] 6.6 g/dL Normal 6.3-8.0 [facility] Comment on above: Order Comment: Speci men Type: BLOOD SPECIMEN Ordering Facility: [facility] Address: [address] [place] [address] Performed By: #### 5 8410-2 #### [facility] CLIA [id number] [place] [address] [place] Sodium [Moles/Vol] 141 mmol/L Normal 136-144 [facility] Comment on above: Order Comment: Cristyi men Type: BLOOD SPECIMEN Ordering Facility: [facility] Address: [address] [place] [address] Performed By: #### 5 8410-2 #### [facility] CLIA [id number] [place] [address] [place] Urea nitrogen [Mass/Vol] 19 mg/dL Normal 7-21 [facility] Comment on above: Order Comment: Cristyi ophelia Type: BLOOD SPECIMEN Ordering Facility: [facility] Address: [address] [place] [address] Performed By: #### 5 8410-2 #### [facility] CLIA [id number] [address] [place] ED MED ADMINISTRATION DETAIL on 01-18-2025 ED MED ADMINISTRATION DETAIL Normal [facility] ED MED ADMINISTRATION DETAIL Normal [facility] ED NURSES CLINICAL NOTEon ED NURSES CLINICAL NOTE Normal [facility] ED NURSES CLINICAL NOTE Normal [facility] ED ORDER SHEET (CPOE ONLY)on 01-18-2025 ED ORDER SHEET (CPOE ONLY) Normal [facility] ED ORDER SHEET (CPOE ONLY) Normal [facility] ED PHYSICIAN CLINICAL REPORT on 01-18-2025 ED PHYSICIAN CLINICAL REPORT Normal [facility] ED PHYSICIAN CLINICAL REPORT Normal [facility] ED SUPER BILLon 01-18-2025 ED SUPER BILL Normal [facility] ED SUPER BILL Normal [facility] ED VISIT SUMMARYon ED VISIT SUMMARY Normal [facility] ED VISIT SUMMARY Normal [facility] ED VITALS FLOW SHEETon 01-18 ED VITALS FLOW SHEET Normal [facility] ED VITALS FLOW SHEET Normal [facility] HISTORY PHYSICALon HISTORY PHYSICAL HNO ID: [id number] Author: THERESA MATTHEWS MD Service: General Internal Medicine Author Type: Physician Type: H&P Filed: 01/18/2025 16:27 Note Text: HISTORY AND PHYSICAL EXAMINATION PATIENT NAME: Bony Huang SERVICE DATE: 01/18/2025 PRIMARY CARE PHYSICIAN: Cheikh Pinto MD ASSESSMENT AND PLAN Assessment AND Plan Nausea vomiting and diarrhea Present on Admission: Yes ??infn vs IBS vs GI neuro or endocrine pathology Acquired hypothyroidism Present on Admission: Yes Malnutrition of mild degree (HCC) Present on Admission: Yes Gastroparesis Present on Admission: Yes History of gastritis Present on Admission: Yes +NM GES 10/2018 ALICIA (acute kidney injury) Present on Admission: Yes Creat 2+ this AM in ER, was low 1s, 1-2M ago. Overweight Present on Admission: Yes Hiatal hernia without gangrene and obstruction Present on Admission: Yes GERD (gastroesophageal reflux disease) Present on Admission: Yes On PPI at home. History of malignant carcinoid tumor of small intestine Present on Admission: Yes The following problems are present on admission at this time: Weight loss Hypothyroidism Continue current outpatient treatment plan and current medications for these conditions, except where otherwise noted. PLAN: IV fluids, monitor renal function, urine output. Stool tests if she has diarrhea. Clear liquids, n.p.o. postmidnight for possible GI Eval. GI consult for suspected complications of gastroparesis Supportive care with antiemetics PPI po as at home. Hold nephrotoxic agents Continue levothyroxine. Hold Motegrity. DVT prophylaxis Discussed with nurses/case management team and the specialists involved in this patient's care. Reviewed the EMR and documentation from other care-givers. Plan of care discussed with: Provider, RN, Patient and Family/Significant Other: spouse at bedside. SUBJECTIVE CHIEF COMPLAINT: NVD x1d. HPI: This is a 75 year old female who went to ER in her hometown of [facility] for feeling generally weak after multiple rounds of diarrhea and emesis since yesterday evening. Patient claims that she had multiple rounds of diarrhea yesterday morning, but then it eased up only to restart around 8 PM last night. After a while she started having emesis, mostly nonbilious nonbloody. She felt very weak and thus went to the ER in the early hours of this morning. She was evaluated in the ER and noted to have elevated creatinine, compared to previous values. Patient reports having recurrent symptoms similar to these in the last few weeks and those resolved in about 24 hours, frequently requiring ER visit for hydration and IV antiemetics. Given multiple failed outpatient treatment trials, patient was admitted to the hospital for further evaluation. She was transferred to [facility] in particular, given her prior history of gastroparesis and for continued of care with the GI service. She has not had any further diarrhea or vomiting since going to the ER this morning. Currently patient reports feeling much better. She reports having intermittent left upper quadrant severe pain, after eating food, resolves after vomiting mucousy goblet (not undigested food). 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 [facility] TOTAL ABDOMINAL HYSTERECT W/WO RMVL TUBE OVARY FAMILY HISTORY: FAMILY HISTORY Problem Relation Age of Onset Thyroid Mother surgical hypothyroidism Lipids Mother Breast Cancer Mother macular degeneration other (atrial fibrillation) Mother Coronary Artery Disease Father premature with TN at around 27yo Colon Cancer Sister other (Fibromyalgia) Sister other (Other) Grandchild Chavis syndrome SOCIAL HISTORY: SOCIAL HISTORY[1] MEDICATIONS: Prior to Admission Medications Prescriptions Prior to Admission[2] CURRENT ALLERGIES: ALLERGIES Allergen Reactions Asa [Aspirin] Other: See Comments nose bleeds Bactrim [Sulfametho* Swelling Sulfa (Sulfonamide * Swelling Lip swelling COMPLETE REVIEW OF SYSTEMS: GENERAL: No fever, appetite stable. HEENT: No epistaxis NECK: no neck lump RESPIRATORY: No new resp symptoms. CARDIOVASCULAR: No ch pain, no leg edema, No orthopnea GI: see HPI, no GI Bleed : No hematuria MUSCULOSKELETAL: No new jt pains or swelling SKIN: No rashes PSYCH: Denies feeling anxious or depressed. HEMATOLOGY/LYMPHOL (more content not included)... Normal [facility] HISTORY PHYSICAL HNO ID: [id number] Author: KAMILLE HOU APRN.RECONSTRUCTIVE SURGEON Service: General Internal Medicine Author Type: Nurse Practitioner Type: H&P Filed: 01/18/2025 15:13 Note Text: INITIAL ENCOUNTER - ADMISSION NOTE PATIENT NAME: Bony Huang Code Status: Full Code SERVICE TIME: 3:07 PM ADMISSION DATE: 01/18/2025 SERVICE DATE: 01/18/2025 PRIMARY CARE PHYSICIAN: Cheikh Pinto MD HOSPITAL ATTENDING PHYSICIAN: Dr. Matthews ASSESSMENT AND PLAN/MDM Assessment AND Plan Nausea vomiting and diarrhea Present on Admission: Yes Prn antiemetic NPO GI C-diff Enteric Panel GERD (gastroesophageal reflux disease) Present on Admission: Yes IV protonix Acquired hypothyroidism Present on Admission: Yes Cont synthroid Malnutrition of mild degree (HCC) Present on Admission: Yes Nutrtition Gastroparesis Present on Admission: Yes GI consult ALICIA (acute kidney injury) Present on Admission: Yes Hold nephrotoxic agents IVF Monitor Labs Subjective ADMITTING DIAGNOSIS: N/V/D, Gastroparesis, ALICIA HPI/HOSPITAL COURSE: 75 y/o female with past medical history of GERD, Hypothroidism, N/V presents to [facility] via transfer from another hospital with complaints of nausea, vomiting and diarrhea. Lab work showed ALICIA, see's Dr. Cantu for gastroparesis, admitted for IV fluids and management of symptoms. Met patient and at the bedside, in NAD, discussed plan of care in detail, discussed medications and code status. Wishes to be Full Code. All questions answered. Agreeable and understanding of plan. BP 142/93 Pulse 68 Temp 36.4 ?C (97.6 ?F) (Oral) Resp 18 Ht 157.5 cm (5' 2) SpO2 99% BMI 27.82 kg/m? The following problems are present on admission at this time: Weight loss Hypothyroidism Continue current outpatient treatment plan and current medications for these conditions, except where otherwise noted. PAST MEDICAL HISTORY Diagnosis Date ALICIA (acute kidney injury) (HCC) 11/05/2018 Allergic rhinitis Carcinoid tumor GERD (gastroesophageal reflux disease) has been controlled with PPI Hypothyroid Nausea and vomiting PAST SURGICAL HISTORY Procedure Laterality Date DELIVERY ONLY , low transverse x 2 COLONOSCOPY FLX DX W/COLLJ SPEC WHEN PFRMD 05/21/2014 Colonoscopy ESOPHAGOGASTRODUODEN OSCOPY TRANSORAL DIAGNOSTIC 05/21/2014 EGD PAST SURGICAL HISTORY OF 2007 carcinoid tumor of duodeum. [facility] TOTAL ABDOMINAL HYSTERECT W/WO RMVL TUBE OVARY FAMILY HISTORY Problem Relation Age of Onset Thyroid Mother surgical hypothyroidism Lipids Mother Breast Cancer Mother macular degeneration other (atrial fibrillation) Mother Coronary Artery Disease Father premature with TN at around 27yo Colon Cancer Sister other (Fibromyalgia) Sister other (Other) Grandchild Chavis syndrome SOCIAL HISTORY[1] ALLERGIES Allergen Reactions Asa [Aspirin] Other: See Comments nose bleeds Bactrim [Sulfametho* Swelling Sulfa (Sulfonamide * Swelling Lip swelling Prior to Admission Medications Prescriptions Last Dose Informant Patient Reported? Taking? B Complex Vitamins capsule 01/17/2025 Yes Yes Sig: Take 1 capsule by mouth daily before breakfast. Cholecalciferol, Vitamin D3, (VITAMIN D-3) 50 mcg (2,000 unit) cap 01/17/2025 Yes Yes Sig: Take by mouth. PAPAYA ENZYME PO 01/17/2025 Yes Yes Sig: Take 1 capsule by mouth once daily. cetirizine (ZYRTEC) 10 mg tablet 01/17/2025 No Yes Sig: Take 1 tablet by mouth once daily. diphenhydramine HCl (BENADRYL ALLERGY PO) Unknown Yes Yes Sig: Take by mouth. ergocalciferol, vitamin D2, 50 mcg (2,000 unit) cap 01/17/2025 Yes Yes Sig: Take 2,000 Units by mouth once daily. levothyroxine (SYNTHROID) 88 mcg tablet 01/17/2025 Yes Yes Sig: Take 88 mcg by mouth daily before breakfast. melatonin 5 mg tablet 01/17/2025 Yes Yes Sig: Take 5 mg by mouth at bedtime as needed for insomnia. pantoprazole DR (PROTONIX) 20 mg tablet 01/17/2025 Yes Yes Sig: Take 20 mg by mouth every evening. potassium chloride (K-TAB) 10 mEq tablet 01/17/2025 Yes Yes Sig: Take 10 mEq by mouth two times a day. promethazine (PHENERGAN) 12.5 mg tablet Unknown Yes Yes Sig: Take 12.5 mg by mouth every 8 hours as needed for nausea/vomiting. prucalopride (MOTEGRITY) 2 mg tab tablet Past Week Yes Yes Sig: Take 2 mg by mouth once daily. Facility-Administere d Medications: None REVIEW OF SYSTEMS PAIN ASSESSMENT: Negative for pain, history of chronic pain, or current treatment for a chronic pain condition. GENERAL: No weight loss, malaise or fevers RESPIRATORY: Negative for cough, hemoptysis, wheezing, COPD, dyspnea or shortness of breath CARDIOVASCULAR: Negative for chest pain, leg swelling, hypertension, CHF or palpitations MUSCULOSKELETAL: Negative for joint pain or swelling, back pain or muscle pain Objective PHYSICAL EXAM: BP 142/93 Pulse 68 Temp 36.4 ?C (97.6 ?F) (Oral) Resp 18 Ht 157.5 cm (5' (more content not included)... Normal [facility] LIPASEon 01-18-2025 Lipase [Catalytic activity/Vol] 89.0 U/L High 15.0 - 78.0 [facility] Comment on above: Result Comment: *PLE ASE NOTE THAT RANGES FOR LIPASE HAVE CHANGED OF 04/12/23 DUE TO AN ASSAYUPDATE BY THE HAND BINDER STRIPPER.THE NEW ASSAY RANGE IS 6-250 U/L, WITH A REFERENCERANGE OF 16-77 U/L. Performed By: #### 2 [id number] ####[facility],[address] [place] [address] Magnesium [facility] [place] 01-18 Magnesium [Mass/Vol] 1.8 mg/dL Normal 1.7-2.3 [facility] Comment on above: Order Comment: Speci men Type: BLOOD SPECIMEN Ordering Facility: [facility] Address: [address] [place] [address] [place] [address] Performed By: #### 5 8410-2 #### [facility] CLIA [id number] [address] [place] [address] [facility] NURSING PROGon 01-18-2025 NURSING PROG HNO ID: [id number] Author: RIA XAVIER RN Service: Nursing Author Type: Registered Nurse Type: Nursing Progress Note Filed: 01/18/2025 19:06 Note Text: Nursing Progress Note: 01/18/25 1300 Pt was admitted to PCU. VS were taken, pt denied any pain, assessment was conducted, safety precautions taken. Jayna farm loan inspector nurse was called to complete admission database. 1310 Valerie RN at the bedside, to complete admit database. Ritesh CLERICAL COORDINATOR was messaged about admit orders. 1320 Ritesh CLERICAL COORDINATOR stated that Kamille CLERICAL COORDINATOR will work on the admit orders. 1400 Pt was resting, safety precautions taken. 1600 Pt was resting, safety precautions taken. Dr. Matthews was at the bedside. 1910 Report was given to oncoming nurse. Normal [facility] THERAPY NTon 01-18-2025 THERAPY NT HNO ID: [id number] Author: BROOKLYN WU CCC-BOLT LABELER Service: Speech/Swallow Author Type: Speech Language Pathologist Type: Therapy (PT/OT/Speech/Resp) Filed: 01/18/2025 15:36 Note Text: Speech Therapy Clinical Swallow Evaluation SERVICE DATE: 01/18/2025 SERVICE TIME: 1505 to 1518 ROOM: [place] [address] IMPRESSION Functional oropharyngeal phases of swallowing: without identified risk for aspiration Concern for possible esophageal impairment (GI on consult) Will discontinue from caseload. Please reconsult if medical necessity arises. RECOMMENDATIONS Diet Recommendations Regular Consistency, Thin Liquids IDDSI Level 0 (when cleared by physician) Swallow Strategy Recommendations Alert (patient should be fully alert for P.O. intake), Alternate bites and sips, Limit Distractions, Feed / Eat at a slow rate, Small Bite/Sip, Sit upright 90 degrees for all PO, Maintain an upright position 20-30 minutes following all oral intake, Anti-Reflux precautions, Rigid Oral Hygiene Nursing Recommendations Allow for extended time for thought processing, Routine Rigid Oral HygieneRoutine rigid oral hygiene Recommended Consults GI (on consult) Response to Therapy Interventions: Receptive family/caregivers, Good participation in activities Rehabilitation Precautions: Aspiration Precautions Precaution/Activity Restriction Comments: NPO- cleared by RN for po for swallow evaluation DISCHARGE RECOMMENDATIONS Recommended Discharge Disposition: No further skilled speech therapy services anticipated CURRENT HOSPITAL COURSE patient admitted with nausea, vomiting, diarrhea Reason for Speech Therapy Consult: dysphagia assessment Relevant Past Medical History: GERD, gastroparesis HOME ENVIRONMENT / PRIOR FUNCTIONAL LEVEL Prior Functional Level: Within Functional Limits Patient Lives With: Spouse Prior Swallowing Function/Diet Textures: Regular Consistency, Thin Liquids IDDSI Level 0 SUBJECTIVE Patient denies dysphagia, reports pain in lower abdomen following solids with subsequent vomiting. THERAPY DIAGNOSIS No Skilled Need TREATMENT INTERVENTIONS Clinical Swallow Evaluation (22413) Skilled Treatment Time (minutes): 13 TRAINING AND EDUCATION PROVIDED IN Dietary Consistencies, Results and Recommendations of Session, Swallowing Strategies THERAPEUTIC SKILLS USED Teach-back for confirmation of education provided, Education on role of discipline / importance of activity, Family / caregiver counseling / training, Instruction in self-monitoring / self-assessment OBJECTIVE Current Status Oral Hygiene: Clear, moist oral cavity Dentition: Retains Natural Dentition, Miscellaneous Missing Teeth Current Feeding Method: Oral Current Diet Textures: NPO Current Level Of Communication: Verbal Current Management Of Secretions: Able to self-manage Oral Motor Exam: Within Functional Limits SWALLOW ASSESSMENT Position Of Patient During Assessment: Upright In Bed Feeding Method: Patient Self-Fed Consistencies Presented: Thin Liquids IDDSI Level 0, Pureed Solids IDDSI Level 4, Solid Thin Liquids Oral Phase: (WFL) Thin Liquids Pharyngeal Phase: (WFL) Pureed Solids Oral Phase: (WFL) Pureed Solids Pharyngeal Phase: (WFL) Solid Oral Phase: (WFL) Solid Pharyngeal Phase: (WFL) Response to Swallow Interventions: Patient NPO, cleared by RN to receive po for swallowing evaluation. Adequate oral management of all trials without overt s/s of aspiration. Patient denied difficulty tolerating all po presentations of H20, itzel cracker, applesauce (MInimal trials presented) Compensatory Strategies Utilized During Assessment: Small Bite/Sip [place] Swallow Protocol: Pass Suspected Esophageal Deficits: patient with history of GERD GOALS EVAL ONLY Patient /Caregiver Goals: Eat/Drink Without Restrictions ACUTE CARE TREATMENT PLAN ST Frequency: Discontinue Therapy Services Reasons Inpatient Therapy Services Discontinued: No skilled needs Plan of Care Developed with: Patient, Nurse Practitioner, Nurse, Significant Other (Zina Simental) SIGNATURE: Brooklyn Wu [facility] PATIENT NAME: Bony Huang DATE: January 18, 2025 TIME: 3:30 PM Normal [facility] TROPONINon 01-18-2025 HS TROPONIN 5.9 pg/mL Normal 0.0 - 51.4 [facility] Comment on above: Performed By: #### 2 12563 ####[facility],[address] [place] [address] HS TROPONIN 6.2 pg/mL Normal 0.0 - 51.4 [facility] Comment on above: Performed By: #### 2 57305 ####[facility],[address] [place], [place] [id number] TSH SerPl-aCncon 01-18-2025 TSH Qn 0.782 m[IU]/L Normal 0.270-4.200 [facility] Comment on above: Order Comment: Speci men Type: BLOOD SPECIMEN Ordering Facility: [facility] Address: [address] [place] [address] Performed By: #### 5 8410-2 #### [facility] CLIA [id number] [address] [place] [address] [place] ABDOMEN 3+ VIEWSon ABDOMEN 3+ VIEWS Normal [facility] BMP with eGFRon 01-12-2025 AGE 75 years Normal [facility] Comment on above: Performed By: #### 2 85482 ####[facility],[address] [place] [address] 67110 Anion gap [Moles/Vol] 13 mmol/L Normal 10 - 20 [facility] Comment on above: Performed By: #### 2 98890 ####[facility],[address] [place] [address] 67538 BMP with eGFR Normal [facility] Comment on above: Result Comment: BASI C METABOLIC PANEL Performed By: #### 2 86474 ####[facility],[address] [place] [address] 85663 Calcium [Mass/Vol] 8.3 mg/dL Low 8.5 - 10.1 [facility] Comment on above: Result Comment: VERI FIED BY REPEAT ANALYSIS Performed By: #### 2 95145 ####[facility],[address] [place] [address] 60913 Chloride [Moles/Vol] 102 mmol/L Normal 98 - 107 [facility] Comment on above: Performed By: #### 2 12533 ####[facility],[address] [place] [address] 60001 CO2 [Moles/Vol] 26.4 mmol/L Normal 21.0 - 32.0 [facility] Comment on above: Performed By: #### 2 46942 ####[facility],[address] [place] [address] 25159 Creatinine [Mass/Vol] 1.61 mg/dL High 0.55 - 1.02 [facility] Comment on above: Performed By: #### 2 30240 ####[facility],[address] [place] [address] 28111 eGFR 31 ML/MINUTE Low 60 - 999 [facility] Comment on above: Performed By: #### 2 92104 ####[facility],[address] [place] [address] 74112 eGFR(AA) 38 ML/MINUTE Low 60 - 999 [facility] Comment on above: Result Comment: ACCO RDING TO THE NATIONAL KIDNEY DISEASE EDUCATION PROGRAM(NKDE), A NORMAL eGFRIS A VALUE GREATER THAN OR EQUAL TO 60 ML/MIN/1.73 SQ METERS.CHRONIC KIDNEY DISEASE: <60mL/MIN/1.73 SQ METERSKIDNEY FAILURE: <15mL/MIN/1.73 SQ METERSTHIS TEST SHOULD ONLY BE USED FOR PATIENTS 18 YEARS OF AGE AND OLDER. Performed By: #### 2 90459 ####[address] [address] Glucose [Mass/Vol] 111 mg/dL High 74 - 106 [facility] Comment on above: Performed By: #### 2 51485 ####[address] [address] Potassium [Moles/Vol] 3.6 mmol/L Normal 3.5 - 5.1 [facility] Comment on above: Performed By: #### 2 23258 ####[address] [address] Sodium [Moles/Vol] 138 mmol/L Normal 136 - 145 [facility] Comment on above: Performed By: #### 2 92885 ####[address] [address] Urea nitrogen [Mass/Vol] 25 mg/dL High 7 - 18 [facility] Comment on above: Performed By: #### 2 68771 ####[address] [address] CBC + DIFFon 01-12-2025 Baso # 0.03 x10EE3/UL Normal 0.00 - 0.10 [facility] Comment on above: Performed By: #### 2 21053 ####[address] [address] Basophils/100 WBC (Bld) 0.4 % Normal 0.0 - 2.0 [facility] Comment on above: Performed By: #### 2 95684 ####[place] [address],[place] [address] CBC + DIFF Normal [facility] Comment on above: Result Comment: CBC- COMPLETE BLOOD COUNT Performed By: #### 2 85359 ####[facility],[address] [place] [address] 06569 EO # 0.08 x10EE3/UL Normal 0.00 - 0.50 [facility] Comment on above: Performed By: #### 2 10659 ####[facility],[address] [place] [address] 70713 Eosinophils/100 WBC (Bld) 1.0 % Normal 0.0 - 7.0 [facility] Comment on above: Performed By: #### 2 96647 ####[facility],[address] [place], [place] [address] Erythrocyte distribution width (RBC) [Ratio] 13.7 % Normal 12.0 - 15.6 [facility] Comment on above: Performed By: #### 2 29628 ####[facility],[address] [place] [address] 89572 Hematocrit (Bld) [Volume fraction] 45.9 % Normal 34.0 - 46.0 [facility] Comment on above: Performed By: #### 2 24706 ####[facility],[address] [place] [address] 48625 Hemoglobin (Bld) [Mass/Vol] 15.7 g/dL Normal 12.0 - 16.0 [facility] Comment on above: Performed By: #### 2 71146 ####[facility],[address] [place] [address] 18392 Lymph # 0.70 x10EE3/UL Low 0.80 - 2.80 [facility] Comment on above: Performed By: #### 2 55812 ####[facility],[address] [place] [address] 27719 Lymphocytes/100 WBC (Bld) 8.1 % Low 20.0 - 45.0 [facility] Comment on above: Performed By: #### 2 41838 ####[facility],[address] [place] [address] MANUAL DIFF N/A Normal [facility] Comment on above: Performed By: #### 2 13518 ####[facility],[address] [place] [address] MCH (RBC) [Entitic mass] 29 pg Normal 27 - 33 [facility] Comment on above: Performed By: #### 2 76734 ####[facility],[address] [place] [address] MCHC 34 X10 3 Normal 32 - 36 [facility] Comment on above: Performed By: #### 2 91994 ####[facility],[address] [place] [address] MCV (RBC) [Entitic vol] 84 fL Normal 80 - 99 [facility] Comment on above: Performed By: #### 2 44188 ####[facility],[address] [place] [address] [place] # 0.56 x10EE3/UL Normal 0.20 - 1.00 [facility] Comment on above: Performed By: #### 2 02469 ####[facility],[address] [place] [address] MONOS % 6.4 % Normal 0.0 - 10.0 [facility] Comment on above: Performed By: #### 2 64197 ####[facility],[address] [place] [address] Morphology Julian (Bld) [Interp] N/A Normal [facility] Comment on above: Performed By: #### 2 32608 ####[facility],[address] [place] [address] Neut # 7.28 x10EE3/UL High 1.50 - 7.10 [facility] Comment on above: Performed By: #### 2 01216 ####[facility],[address] [place] [address] 15353 Neutrophils/100 WBC (Bld) 84.1 % High 46.0 - 76.0 [facility] Comment on above: Performed By: #### 2 48538 ####[facility],[address] [place] [address] 14201 PLATELET 281 x10EE3/UL Normal 150 - 450 [facility] Comment on above: Performed By: #### 2 99525 ####[facility],[address] [place] [address] 61377 Platelet mean volume (Bld) [Entitic vol] 7.9 fL Normal 6.6 - 10.5 [facility] Comment on above: Result Comment: AUTO MATED DIFFERENTIAL Performed By: #### 2 63678 ####[facility],[address] [place] [address] 89401 RBC 5.46 x 10EE6/UL High 4.10 - 5.30 [facility] Comment on above: Performed By: #### 2 25257 ####[facility],[address] [place] [address] 89711 WBC 8.7 x 10EE3/UL Normal 4.5 - 10.8 [facility] Comment on above: Performed By: #### 2 76101 ####[facility],[address] [place] [address] 68430 CMP with eGFRon 01-12-2025 AGE 75 years Normal [facility] Comment on above: Performed By: #### 2 62518 ####[facility],[address] [place] [address] 03488 Albumin [Mass/Vol] 4.4 g/dL Normal 3.4 - 5.0 [facility] Comment on above: Performed By: #### 2 13036 ####[facility],[address] [place] [address] 56033 Albumin/Globulin [Mass ratio] 1.1 {ratio} Normal 0.9 - 1.6 [facility] Comment on above: Performed By: #### 2 64675 ####[facility],[address] [place] [address] 96407 ALK PHOS 116 U/L Normal 46 - 116 [facility] Comment on above: Performed By: #### 2 47753 ####[facility],[address] [place] [address] 73461 ALT [Catalytic activity/Vol] 23 U/L Normal 16 - 63 [facility] Comment on above: Performed By: #### 2 83598 ####[facility],[address] [place] [address] 89754 Anion gap [Moles/Vol] 16 mmol/L Normal 10 - 20 [facility] Comment on above: Performed By: #### 2 14997 ####[facility],[address] [place] [address] 77475 AST [Catalytic activity/Vol] 19 U/L Normal 13 - 39 [facility] Comment on above: Performed By: #### 2 84685 ####[facility],[address] [place] [address] 19612 B/C RATIO 13 ratio Normal 0 - 30 [facility] Comment on above: Performed By: #### 2 56909 ####[facility],[address] [place] [address] 68119 Bilirubin [Mass/Vol] 0.5 mg/dL Normal 0.2 - 1.0 [facility] Comment on above: Performed By: #### 2 78043 ####[facility],[address] [place] [address] 44216 Calcium [Mass/Vol] 9.8 mg/dL Normal 8.5 - 10.1 [facility] Comment on above: Performed By: #### 2 88052 ####[facility],[address] [place] [address] 78007 Chloride [Moles/Vol] 96 mmol/L Low 98 - 107 [facility] Comment on above: Performed By: #### 2 92060 ####[facility],[address] [place] [address] 54635 CMP with eGFR Normal [facility] Comment on above: Result Comment: COMP REHENSIVE METABOLIC PANEL Performed By: #### 2 62612 ####[facility],[address] [place], [place] [address] CO2 [Moles/Vol] 27.5 mmol/L Normal 21.0 - 32.0 [facility] Comment on above: Performed By: #### 2 81745 ####[facility],[address] [place] [address] Creatinine [Mass/Vol] 1.80 mg/dL High 0.55 - 1.02 [facility] Comment on above: Performed By: #### 2 29127 ####[facility],[address] [place] [address] eGFR 28 ML/MINUTE Low 60 - 999 [facility] Comment on above: Performed By: #### 2 36318 ####[facility],[address] [place] [address] eGFR(AA) 33 ML/MINUTE Low 60 - 999 [facility] Comment on above: Result Comment: ACCO RDING TO THE NATIONAL KIDNEY DISEASE EDUCATION PROGRAM(NKDE), A NORMAL eGFRIS A VALUE GREATER THAN OR EQUAL TO 60 ML/MIN/1.73 SQ METERS.CHRONIC KIDNEY DISEASE: <60mL/MIN/1.73 SQ METERSKIDNEY FAILURE: <15mL/MIN/1.73 SQ METERSTHIS TEST SHOULD ONLY BE USED FOR PATIENTS 18 YEARS OF AGE AND OLDER. Performed By: #### 2 81740 ####[facility],[address] [place], [place] [address] Globulin (S) [Mass/Vol] 4.0 g/dL High 1.5 - 3.8 [facility] Comment on above: Performed By: #### 2 65155 ####[facility],[address] [place] [address] 66995 Glucose [Mass/Vol] 119 mg/dL High 74 - 106 [facility] Comment on above: Performed By: #### 2 53035 ####[facility],[address] [place], [place] [address] Potassium [Moles/Vol] 3.3 mmol/L Low 3.5 - 5.1 [facility] Comment on above: Performed By: #### 2 36525 ####[facility],[address] [place] [address] Protein [Mass/Vol] 8.4 g/dL High 6.4 - 8.2 [facility] Comment on above: Performed By: #### 2 72849 ####[facility],[address] [place] [address] Sodium [Moles/Vol] 136 mmol/L Normal 136 - 145 [facility] Comment on above: Performed By: #### 2 99004 ####[facility],[address] [place] [address] Urea nitrogen [Mass/Vol] 23 mg/dL High 7 - 18 [facility] Comment on above: Performed By: #### 2 94188 ####[facility],[address] [place] [address] CT ABDOMEN/PELVIS Won 2024 CT ABDOMEN/PELVIS W Normal [facility] LIPASEon 01-12-2025 Lipase [Catalytic activity/Vol] 73.0 U/L Normal 15.0 - 78.0 [facility] Comment on above: Result Comment: *PLE ASE NOTE THAT RANGES FOR LIPASE HAVE CHANGED OF 04/12/23 DUE TO AN ASSAYUPDATE BY THE HAND BINDER STRIPPER.THE NEW ASSAY RANGE IS 6-250 U/L, WITH A REFERENCERANGE OF 16-77 U/L. Performed By: #### 2 40402 ####[facility],[address] [place], [place] [address] TROPONINon 01-12-2025 HS TROPONIN 4.4 pg/mL Normal 0.0 - 51.4 [facility] Comment on above: Performed By: #### 2 95719 ####[facility],[address] [place] [address] 47692 CBC + DIFFon 01-01-2025 Baso # 0.02 x10EE3/UL Normal 0.00 - 0.10 [facility] Comment on above: Performed By: #### 2 72403 ####[facility],[address] [place] [address] 51801 Basophils/100 WBC (Bld) 0.2 % Normal 0.0 - 2.0 [facility] Comment on above: Performed By: #### 2 10541 ####[facility],[address] [place] [address] CBC + DIFF Normal [facility] Comment on above: Result Comment: CBC- COMPLETE BLOOD COUNT Performed By: #### 2 09732 ####[facility],[address] [place] [address] EO # 0.04 x10EE3/UL Normal 0.00 - 0.50 [facility] Comment on above: Performed By: #### 2 99637 ####[facility],[address] [place] [address] 48345 Eosinophils/100 WBC (Bld) 0.5 % Normal 0.0 - 7.0 [facility] Comment on above: Performed By: #### 2 22676 ####[facility],[address] [place] [address] 71796 Erythrocyte distribution width (RBC) [Ratio] 13.3 % Normal 12.0 - 15.6 [facility] Comment on above: Performed By: #### 2 86351 ####[facility],[address] [place] [address] 22719 Hematocrit (Bld) [Volume fraction] 45.8 % Normal 34.0 - 46.0 [facility] Comment on above: Performed By: #### 2 60901 ####[facility],[address] [place] [address] 80557 Hemoglobin (Bld) [Mass/Vol] 15.7 g/dL Normal 12.0 - 16.0 [facility] Comment on above: Performed By: #### 2 44878 ####[facility],[address] [place] [address] Lymph # 0.69 x10EE3/UL Low 0.80 - 2.80 [facility] Comment on above: Performed By: #### 2 13696 ####[facility],[address] [place], [place] [address] Lymphocytes/100 WBC (Bld) 8.1 % Low 20.0 - 45.0 [facility] Comment on above: Performed By: #### 2 61585 ####[facility],[address] [place], [place] [address] MANUAL DIFF N/A Normal [facility] Comment on above: Performed By: #### 2 85617 ####[facility],[address] [place], [place] [address] MCH (RBC) [Entitic mass] 29 pg Normal 27 - 33 [facility] Comment on above: Performed By: #### 2 74357 ####[facility],[address] [place], [place] [address] MCHC 34 X10 3 Normal 32 - 36 [facility] Comment on above: Performed By: #### 2 16316 ####[facility],[address] [place] [address] 38170 MCV (RBC) [Entitic vol] 85 fL Normal 80 - 99 [facility] Comment on above: Performed By: #### 2 89505 ####[facility],[address] [place] [address] 02854 [place] # 0.47 x10EE3/UL Normal 0.20 - 1.00 [facility] Comment on above: Performed By: #### 2 01685 ####[facility],[address] [place] [address] 19140 MONOS % 5.5 % Normal 0.0 - 10.0 [facility] Comment on above: Performed By: #### 2 04755 ####[facility],[address] [place] [address] 40965 Morphology Julian (Bld) [Interp] N/A Normal [facility] Comment on above: Performed By: #### 2 74463 ####[facility],[address] [place] [address] 16028 Neut # 7.29 x10EE3/UL High 1.50 - 7.10 [facility] Comment on above: Performed By: #### 2 77006 ####[facility],[address] [place] [address] 66946 Neutrophils/100 WBC (Bld) 85.7 % High 46.0 - 76.0 [facility] Comment on above: Performed By: #### 2 58087 ####[facility],[address] [place] [address] 57110 PLATELET 273 x10EE3/UL Normal 150 - 450 [facility] Comment on above: Performed By: #### 2 07337 ####[facility],[address] [place] [address] 61997 Platelet mean volume (Bld) [Entitic vol] 7.6 fL Normal 6.6 - 10.5 [facility] Comment on above: Result Comment: AUTO MATED DIFFERENTIAL Performed By: #### 2 21933 ####[facility],[address] [place] [address] 37744 RBC 5.37 x 10EE6/UL High 4.10 - 5.30 [facility] Comment on above: Performed By: #### 2 33753 ####[facility],[address] [place] [address] 15180 WBC 8.5 x 10EE3/UL Normal 4.5 - 10.8 [facility] Comment on above: Performed By: #### 2 30309 ####[facility],[address] [place] [address] 70536 CMP with eGFRon 01-01-2025 AGE 74 years Normal [facility] Comment on above: Performed By: #### 2 33474 ####[facility],[address] [place] [address] 80061 Albumin [Mass/Vol] 4.2 g/dL Normal 3.4 - 5.0 [facility] Comment on above: Performed By: #### 2 84853 ####[facility],[address] [place] [address] 20470 Albumin/Globulin [Mass ratio] 1.1 {ratio} Normal 0.9 - 1.6 [facility] Comment on above: Performed By: #### 2 69549 ####[facility],[address] [place] [address] 45848 ALK PHOS 108 U/L Normal 46 - 116 [facility] Comment on above: Performed By: #### 2 70553 ####[facility],[address] [place] [address] 76271 ALT [Catalytic activity/Vol] 20 U/L Normal 16 - 63 [facility] Comment on above: Performed By: #### 2 14500 ####[facility],[address] [place] [address] 21585 Anion gap [Moles/Vol] 16 mmol/L Normal 10 - 20 [facility] Comment on above: Performed By: #### 2 99260 ####[facility],[address] [place] [address] 25348 AST [Catalytic activity/Vol] 17 U/L Normal 13 - 39 [facility] Comment on above: Performed By: #### 2 15576 ####[facility],[address] [place] [address] 53937 B/C RATIO 17 ratio Normal 0 - 30 [facility] Comment on above: Performed By: #### 2 24290 ####[facility],[address] [place] [address] 90513 Bilirubin [Mass/Vol] 0.5 mg/dL Normal 0.2 - 1.0 [facility] Comment on above: Performed By: #### 2 57654 ####[facility],[address] [place] [address] 36843 Calcium [Mass/Vol] 10.4 mg/dL High 8.5 - 10.1 [facility] Comment on above: Performed By: #### 2 36203 ####[facility],[address] [place], [place] [address] Chloride [Moles/Vol] 96 mmol/L Low 98 - 107 [facility] Comment on above: Performed By: #### 2 10376 ####[facility],[address] [place] [address] CMP with eGFR Normal [facility] Comment on above: Result Comment: COMP REHENSIVE METABOLIC PANEL Performed By: #### 2 27231 ####[facility],[address] [place] [address] 47800 CO2 [Moles/Vol] 35.3 mmol/L High 21.0 - 32.0 [facility] Comment on above: Performed By: #### 2 44419 ####[facility],[address] [place] [address] 03512 Creatinine [Mass/Vol] 1.22 mg/dL High 0.55 - 1.02 [facility] Comment on above: Performed By: #### 2 79939 ####[facility],[address] [place] [address] 13174 eGFR 43 ML/MINUTE Low 60 - 999 [facility] Comment on above: Performed By: #### 2 74859 ####[facility],[address] [place] [address] 28126 eGFR(AA) 52 ML/MINUTE Low 60 - 999 [facility] Comment on above: Result Comment: ACCO RDING TO THE NATIONAL KIDNEY DISEASE EDUCATION PROGRAM(NKDE), A NORMAL eGFRIS A VALUE GREATER THAN OR EQUAL TO 60 ML/MIN/1.73 SQ METERS.CHRONIC KIDNEY DISEASE: <60mL/MIN/1.73 SQ METERSKIDNEY FAILURE: <15mL/MIN/1.73 SQ METERSTHIS TEST SHOULD ONLY BE USED FOR PATIENTS 18 YEARS OF AGE AND OLDER. Performed By: #### 2 20644 ####[facility],[address] [place] [address] 81370 Globulin (S) [Mass/Vol] 4.0 g/dL High 1.5 - 3.8 [facility] Comment on above: Performed By: #### 2 00432 ####[facility],[address] [place] [address] 02225 Glucose [Mass/Vol] 131 mg/dL High 74 - 106 [facility] Comment on above: Performed By: #### 2 17695 ####[facility],[address] [place] [address] 96620 Potassium [Moles/Vol] 2.9 mmol/L Critically low 3.5 - 5.1 [facility] Comment on above: Result Comment: { CA LLED TO CRSION RN BY AA [id number]{ READ BACK BY CRSION RN RA [id number] Performed By: #### 2 26361 ####[facility],[address] [place] [address] 71942 Protein [Mass/Vol] 8.2 g/dL Normal 6.4 - 8.2 [facility] Comment on above: Performed By: #### 2 02609 ####[address] [address] Sodium [Moles/Vol] 144 mmol/L Normal 136 - 145 [facility] Comment on above: Performed By: #### 2 48767 ####[facility],[address] [place] [address] 50776 Urea nitrogen [Mass/Vol] 21 mg/dL High 7 - 18 [facility] Comment on above: Performed By: #### 2 54451 ####[facility],[address] [place], [place] [address] ED MED ADMINISTRATION DETAIL on 01-01-2025 ED MED ADMINISTRATION DETAIL Normal [facility] ED NURSES CLINICAL NOTEon ED NURSES CLINICAL NOTE Normal [facility] ED ORDER SHEET (CPOE ONLY)on 01-01-2025 ED ORDER SHEET (CPOE ONLY) Normal [facility] ED PHYSICIAN CLINICAL REPORT on 01-01-2025 ED PHYSICIAN CLINICAL REPORT Normal [facility] ED SUPER BILLon 01-01-2025 ED SUPER BILL Normal [facility] ED VISIT SUMMARYon ED VISIT SUMMARY Normal [facility] ED VITALS FLOW SHEETon 01-01 ED VITALS FLOW SHEET Normal [facility] CNOVon 12-29-2024 CNOV Office Visit ([facility]ST[facility]) LARISSAYAMILEXBONY ([id number]) 1950 F Date Time Provider Department 12/29/24 1:00 PM BRENT CANTU [facility] During your visit today, we recorded the following information about you: Pulse Blood pressure Weight Height 70/minute 143/83 69 kg 1.575 m Brent Cantu DO 12/29/2024 1:16 PM Signed FOLLOW UP VISIT CHIEF COMPLAINT Patient presents with: Recheck Ms. Huang is here today for follow-up of: Gastroparesis constipation. HPI: The patient is a 74-year-old female presenting with episodic postprandial pain, emesis, and intermittent diarrhea. For the past year, she has experienced episodes of severe pain localized to the left upper quadrant after eating non-pureed foods or swallowing whole pills. She reports that food or pills seem to ?stick? in this area, causing intense pain until she vomits. Emesis consists of large amounts of phlegm, without food particles. The episodes are unpredictable, not consistently triggered by specific foods, and do not occur with every meal. She is able to tolerate pureed foods, such as blended soups, without difficulty. After an episode, she can sometimes resume eating the same food 15-20 minutes later without recurrence of symptoms. She denies any difficulty initiating swallowing. She also reports approximately 20 episodes of diarrhea over the past year, often following these postprandial events. Diarrhea is described as multiple loose stools (e.g., 6 episodes in one morning), sometimes followed by a day or more without bowel movements. She takes Motegrity nightly for chronic constipation, but withholds it on days when she has diarrhea, which she feels helps prevent worsening symptoms. She notes that if she tries to ?fight through? an episode and keep food down, she is more likely to develop diarrhea and require emergency care. She has a remote history of carcinoid tumor resection approximately 30 years ago. She underwent an EGD in [address] Overton, which identified a small hiatal hernia. She is unable to swallow whole pills and must crush all medications and supplements. She denies any new surgeries since her last visit. Diagnostics: (No Date) EGD: Medium-sized hiatal hernia noted, described as not clinically significant. Current Outpatient Medications Medication Sig Dispense Refill prucalopride 2 mg tablet (MOTEGRITY) Take 2 mg by mouth once daily. diphenhydramine HCl (BENADRYL ALLERGY PO) Take by mouth. prucalopride (MOTEGRITY) 2 mg tab tablet Take 2 mg by mouth once daily. potassium chloride (K-TAB) 10 mEq tablet Take 10 mEq by mouth two times a day. Cholecalciferol, Vitamin D3, (VITAMIN D-3) 50 mcg (2,000 unit) cap Take by mouth. levothyroxine (SYNTHROID) 88 mcg tablet Take 88 mcg by mouth daily before breakfast. B Complex Vitamins capsule Take 1 capsule by mouth daily before breakfast. promethazine (PHENERGAN) 12.5 mg tablet Take 12.5 mg by mouth every 8 hours as needed for nausea/vomiting. pantoprazole DR (PROTONIX) 20 mg tablet Take 20 mg by mouth every evening. 3 cetirizine (ZYRTEC) 10 mg tablet Take 1 tablet by mouth once daily. 0 No current facility-administere d medications for this visit. ALLERGIES Allergen Reactions Asa [Aspirin] Other: See Comments nose bleeds Bactrim [Sulfametho* Swelling Sulfa (Sulfonamide * Swelling Lip swelling SOCIAL HISTORY[1] Medical History: No changes since last visit. REVIEW OF SYSTEMS: GENERAL: weight stable, no fevers. CARDIOVASCULAR: No chest pain, no edema RESPIRATORY: No dyspnea : neg CHIP TUNER: neg The remainder of the review of systems are negative. Reviewed with patient during visit today. PHYSICAL EXAMINATION: BP 143/83 Pulse 70 Ht 5' 2 (1.58m) Wt 152 lb 1.9 oz (69.0kg) BMI 27.82 kg/(m2). GENERAL APPEARANCE: Well developed and well nourished. SKIN: Skin color, texture, turgor normal. No rashes or lesions. EYES: Conjunctiva normal without icterus. OROPHARYNX: lips, mucosa, and tongue normal, teeth and gums normal NECK: Supple, full range of motion, no lymphadenopathy, normal thyroid, no carotid bruits and no JVD LUNGS: Normal breath sounds, Clear to auscultation, No wheezes, No crackles. HEART:Normal PMI, Regular rate and rhythm, Normal heart sounds, S1 and S2 and No murmurs. NEURO: Alert and oriented in no acute distress. ABDOMEN: Normal bowel sounds, abdomen flat with no distention, Soft, non-tender, no hepatomegaly. no palpable masses, no abdominal bruits, no rebound and no rigidity. EXTREMITIES:Extremit ies normal, No deformities, No skin discoloration, No edema . ASSESSMENT AND PLAN 1. Epigastric pain (R10.13) 2. Hiatal hernia (K44.9) Episodic postprandial pain and regurgitation with emesis of phlegm, associated with a medium-sized hiatal hernia seen on prior EGD; symptoms are not consistent with gastroparesis. - Ordered u (more content not included)... Normal [facility] ED MED ADMINISTRATION DETAIL on 12-24-2024 ED MED ADMINISTRATION DETAIL Normal [facility] ED NURSES CLINICAL NOTEon ED NURSES CLINICAL NOTE Normal [facility] ED ORDER SHEET (CPOE ONLY)on 12-24-2024 ED ORDER SHEET (CPOE ONLY) Normal [facility] ED PHYSICIAN CLINICAL REPORT on 12-24-2024 ED PHYSICIAN CLINICAL REPORT Normal [facility] ED SUPER BILLon 12-24-2024 ED SUPER BILL Normal [facility] ED VISIT SUMMARYon ED VISIT SUMMARY Normal [facility] ED VITALS FLOW SHEETon 12-24 ED VITALS FLOW SHEET Normal [facility] .GFRon 12-23-2024 Estimated Glomerular Filtration Rate 34 ml/min/1.73sqm Normal [facility] Comment on above: Result Comment: Stages of Chronic Kidney Disease (CKD) Stage Description eGFR(ml/min/1.73 sq.m.) CKD 1 Normal kidney function or >=90 normal kindney function with possible kidney damage (ex. Proteinuria) CKD 2 Kidney damage with mild loss 60-89 of kidney function CKD 3a Mild to moderate loss of kidney 45-59 function CKD 3b Moderate to severe loss of 30-44 of kindey function CKD 4 Severe loss of kidney function 15-29 CKD 5 Kidney failure <15 Note: (go live 2024) the eGFR calculation was updated to the 2020 CKD-EPI creatinine equation without a race factor to calculate the eGFR results. Performed By: #### C MP, GFR #### [address] [address] CMPon 12-23-2024 Albumin Level 4.8 G/dL Normal 3.2-4.8 [facility] Comment on above: Performed By: #### C MP, GFR #### [address] [address] Albumin/Globulin [Mass ratio] 1.2 {ratio} Normal 0.9-1.6 [facility] Comment on above: Performed By: #### C MP, GFR #### [address] [address] ALP [Catalytic activity/Vol] 105 U/L Normal 38-126 [facility] Comment on above: Performed By: #### C MP, GFR #### [address] [address] ALT [Catalytic activity/Vol] 14 U/L Normal 10-49 [facility] Comment on above: Performed By: #### C MP, GFR #### [place] [id number] AST [Catalytic activity/Vol] 21 U/L Normal 8-34 [facility] Comment on above: Performed By: #### C MP, GFR #### [place] [id number] Bili Total 0.40 mg/dL Normal 0.20-1.20 [facility] Comment on above: Result Comment: Use of this assay is not recommended for patients undergoing treatment with eltrombopag due to the potential for falsely elevated results. Performed By: #### C MP, GFR #### [place] [address] BUN/Creatinine Ratio 15.5 ratio Normal 10.0-22.0 [facility] Comment on above: Performed By: #### C MP, GFR #### [place] [address] Calcium [Mass/Vol] 11.2 mg/dL High 8.7-10.4 [facility] Comment on above: Performed By: #### C MP, GFR #### [place] [address] Chloride [Moles/Vol] 92 mmol/L Low 98-110 [facility] Comment on above: Performed By: #### C MP, GFR #### [place] [id number] CO2 [Moles/Vol] 30 mmol/L Normal 22-32 [facility] Comment on above: Performed By: #### C MP, GFR #### [place] [id number] Creatinine [Mass/Vol] 1.61 mg/dL High 0.50-1.20 [facility] Comment on above: Result Comment: Test ing performed on [employer] analyzer using enzymatic creatinine methodology. Performed By: #### C MP, GFR #### [place] [id number] Electrolyte Balance 18.0 mEq/L High 4.0-15.0 [facility] Comment on above: Performed By: #### C MP, GFR #### [address] [address] Globulin 4.0 G/dL Normal 2.5-4.2 [facility] Comment on above: Performed By: #### C MP, GFR #### [address] [address] Glucose [Mass/Vol] 140 mg/dL High 82-115 [facility] Comment on above: Performed By: #### C MP, GFR #### [address] [address] Potassium [Moles/Vol] 3.6 mmol/L Normal 3.5-5.0 [facility] Comment on above: Performed By: #### C MP, GFR #### [address] [address] Sodium [Moles/Vol] 140 mmol/L Normal 136-145 [facility] Comment on above: Performed By: #### C MP, GFR #### [address] [address] Total Protein 8.8 G/dL High 5.7-8.2 [facility] Comment on above: Performed By: #### C MP, GFR #### [address] [address] Urea nitrogen [Mass/Vol] 25.0 mg/dL High 8.0-22.0 [facility] Comment on above: Performed By: #### C MP, GFR #### [address] [address] CMP with eGFRon 12-23-2024 CMP with eGFR Normal [facility] Comment on above: Result Comment: COMP REHENSIVE METABOLIC PANEL SEE SEPERATE REPORT Performed By: #### 2 16605 ####[facility],[address] [place] [address] CBC + DIFFon 12-22-2024 Baso # 0.03 x10EE3/UL Normal 0.00 - 0.10 [facility] Comment on above: Performed By: #### 2 18812 ####[facility],[address] [place] [address] Basophils/100 WBC (Bld) 0.4 % Normal 0.0 - 2.0 [facility] Comment on above: Performed By: #### 2 37997 ####[facility],[address] [place] [address] CBC + DIFF Normal [facility] Comment on above: Result Comment: CBC- COMPLETE BLOOD COUNT Performed By: #### 2 40901 ####[place] [address] EO # 0.16 x10EE3/UL Normal 0.00 - 0.50 [facility] Comment on above: Performed By: #### 2 28389 ####[facility],[address] [place] [address] Eosinophils/100 WBC (Bld) 1.8 % Normal 0.0 - 7.0 [facility] Comment on above: Performed By: #### 2 38473 ####[place] [address] Erythrocyte distribution width (RBC) [Ratio] 14.2 % Normal 12.0 - 15.6 [facility] Comment on above: Performed By: #### 2 83315 ####[facility],[address] [place] [address] Hematocrit (Bld) [Volume fraction] 48.9 % High 34.0 - 46.0 [facility] Comment on above: Performed By: #### 2 64420 ####[facility],[address] [place] [address] Hemoglobin (Bld) [Mass/Vol] 16.7 g/dL High 12.0 - 16.0 [facility] Comment on above: Performed By: #### 2 49363 ####[facility],[address] [place] [address] Lymph # 1.94 x10EE3/UL Normal 0.80 - 2.80 [facility] Comment on above: Performed By: #### 2 46134 ####[facility],[address] [place] [address] Lymphocytes/100 WBC (Bld) 22.8 % Normal 20.0 - 45.0 [facility] Comment on above: Performed By: #### 2 50080 ####[facility],[address] [place] [address] MANUAL DIFF N/A Normal [facility] Comment on above: Performed By: #### 2 43137 ####[facility],[address] [place] [address] MCH (RBC) [Entitic mass] 29 pg Normal 27 - 33 [facility] Comment on above: Performed By: #### 2 05355 ####[facility],[address] [place] [address] MCHC 34 X10 3 Normal 32 - 36 [facility] Comment on above: Performed By: #### 2 59289 ####[facility],[address] [place] [address] MCV (RBC) [Entitic vol] 84 fL Normal 80 - 99 [facility] Comment on above: Performed By: #### 2 15305 ####[facility],[address] [place] [address] [place] # 0.82 x10EE3/UL Normal 0.20 - 1.00 [facility] Comment on above: Performed By: #### 2 71199 ####[facility],[address] [place] [address] MONOS % 9.7 % Normal 0.0 - 10.0 [facility] Comment on above: Performed By: #### 2 37098 ####[facility],[address],[place] [address] Morphology Julian (Bld) [Interp] N/A Normal [facility] Comment on above: Performed By: #### 2 89109 ####[facility],[address] [place] [address] Neut # 5.56 x10EE3/UL Normal 1.50 - 7.10 [facility] Comment on above: Performed By: #### 2 31995 ####[address] [address] Neutrophils/100 WBC (Bld) 65.3 % Normal 46.0 - 76.0 [facility] Comment on above: Performed By: #### 2 41867 ####[address] [address] PLATELET 351 x10EE3/UL Normal 150 - 450 [facility] Comment on above: Performed By: #### 2 63841 ####[address] [address] Platelet mean volume (Bld) [Entitic vol] 7.9 fL Normal 6.6 - 10.5 [facility] Comment on above: Result Comment: AUTO MATED DIFFERENTIAL Performed By: #### 2 38286 ####[address] [address] RBC 5.79 x 10EE6/UL High 4.10 - 5.30 [facility] Comment on above: Performed By: #### 2 12221 ####[facility],[address] [place] [address] WBC 8.5 x 10EE3/UL Normal 4.5 - 10.8 [facility] Comment on above: Performed By: #### 2 04745 ####[facility],[address] [place] [address] /Chandrika 12-21-2024 /BMSMELITA [facility] [address] [facility]. [address] [place] [address] OFFICE VISIT Date of Service: 12/21/24 MR#: [id number] Acct: [id number] Name: BONY HUANG Rep #: [id number] : 1950 Provider: Dr. 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 Medical Claims Required: No Accompanied by: Is patient in pain?: No Allergies Sulfa (Sulfonamide Antibiotics) Allergy (Mild, Verified 12/21/24 10:58) Rash sulfamethoxazole (From Bactrim) Allergy (Mild, Verified 12/21/24 10:58) rash trimethoprim (From Bactrim) Allergy (Mild, Verified 12/21/24 10:58) rash aspirin Adverse Reaction (Mild, Verified 12/21/24 10:58) nose bleed Medications ???Medication ???Instructions ???Recorded ???Confirmed ???Type melatonin 5 mg capsule 5 mg PO DAILY 10/25/22 12/21/24 Hi story cholecalciferol (vitamin D3) 25 25 mcg PO QDAY 01/23/24 12/21/24 H istory mcg (1,000 unit) capsule pantoprazole 20 mg tablet,delayed 20 mg PO 4XD 02/17/24 12/21/24 Hi story release potassium iodide 65 mg tablet 130 mg PO DAILY 02/17/24 12/21/24 History ondansetron 4 mg disintegrating 4 mg PO Q8H PRN PRN Nausea #10 tab s 02/20/24 12/21/24 Rx tablet brain sync PO DAILY 02/24/24 12/21/24 History cetirizine 5 mg tablet 5 mg PO QDAY PRN 02/24/24 12/21/24 History digestive enzymes 1 tab PO QDAY 02/24/24 12/21/24 Hi story vitamin B complex 1 tab PO QDAY 02/24/24 12/21/24 Hi story Motegrity 2 mg tablet 2 mg PO DAILY #90 tabs 05/25/24 Rx (prucalopride) levothyroxine 88 mcg tablet 88 mcg PO DAILY #90 tabs 07/06/24 12/21/24 Rx ergocalciferol (vitamin D2) 10 mcg 10 mcg PO QDAY 10/19/24 12/21/24 History (400 unit) tablet Have you fallen in the past year?: No PFSH Medical History Elevated serum creatinine Hypothyroidism polypectomy Gastroparesis Carcinoid tumor Surgical History H/O: hysterectomy Family History Father Heart disease Myocardial infarction Mother CVA (cerebral vascular accident) Thyroid disorder Cancer Asthma Breast cancer Sister Cancer Social History Smoking Status: Never smoker alcohol intake: never substance use type: does not use HPI HPI Chief Complaint: no acute concerns Details: BONY HUANG, is a 74 F who presents to the office today for annual follow-up. I have seen her several times over the last year mostly in ER follow-ups from [facility] where she has had multiple visits for dehydration. She has repeated episodes at times getting fairly frequent of nausea, vomiting followed by diarrhea and dehydration presumed related to gastroparesis. Remote history of carcinoid duodenum, status post resection remotely. Currently we were able to get her an appointment with gastroenterology specialist in the motility disorder center at [facility]. Previously had been following with [facility] gastroenterology and no clear benefit was gained by following with them per se for several years and this was an approach to we look at what the particular disorder is causing all of her symptoms i.e. recurrent bouts of nausea, followed by vomiting and diarrhea. She has been maintained on Motegrity and perhaps is getting some relief however it is not entirely clear to me. Also on pantoprazole per [facility]. She takes number of supplements as per the chart in addition to levothyroxine 88 mcg daily for hypothyroidism. Review of systems per chart. Physical exam. Vital signs on chart. Sclera are clear. TMs are unremarkable with normal light reflexes. Canals are unremarkable. Posterior pharynx is unremarkable. Good dentition. No cervical or supraclavicular lymph nodes enlarged or tender. No clear thyromegaly. No thyroid nodules readily palpable. Lungs are without wheeze, rhonchi, rales. No E/A changes are heard. Heart is regular. Not tachycardic. No clear murmur, rub, or gallop is identified. The abdomen is soft. Bowel sounds are present. Nontender nondistended abdomen. No significant leg edema. Cranial nerve examination 2 through 12 are grossly unremarkable nonlateraliz (more content not included)... Normal [facility] T3, FREE [CCL]on 12-18-2024 Free T3 [Mass/Vol] 2.3 pg/mL Normal 2.3-4.1 [facility] Comment on above: Result Comment: [facility] [address] [place], [place] [address]Wfvqpe Flor GASPAR [id number] Performed By: #### 2 48811 ####[facility],[address] [place] [address] CBC + DIFFon 12-17-2024 Baso # 0.03 x10EE3/UL Normal 0.00 - 0.10 [facility] Comment on above: Performed By: #### 2 37388 ####[facility],[address] [place] [address] Basophils/100 WBC (Bld) 0.6 % Normal 0.0 - 2.0 [facility] Comment on above: Performed By: #### 2 97218 ####[facility],[address] [place] [address] CBC + DIFF Normal [facility] Comment on above: Result Comment: CBC- COMPLETE BLOOD COUNT Performed By: #### 2 09297 ####[facility],[address] [place] [address] EO # 0.16 x10EE3/UL Normal 0.00 - 0.50 [facility] Comment on above: Performed By: #### 2 52015 ####[facility],[address] [place], [place] [address] Eosinophils/100 WBC (Bld) 3.3 % Normal 0.0 - 7.0 [facility] Comment on above: Performed By: #### 2 50965 ####[facility],[address] [place] [address] Erythrocyte distribution width (RBC) [Ratio] 13.5 % Normal 12.0 - 15.6 [facility] Comment on above: Performed By: #### 2 43713 ####[facility],[address] [place] [address] Hematocrit (Bld) [Volume fraction] 38.9 % Normal 34.0 - 46.0 [facility] Comment on above: Performed By: #### 2 75035 ####[facility],[address] [place] [address] Hemoglobin (Bld) [Mass/Vol] 13.4 g/dL Normal 12.0 - 16.0 [facility] Comment on above: Performed By: #### 2 54622 ####[facility],[address] [place] [address] Lymph # 1.40 x10EE3/UL Normal 0.80 - 2.80 [facility] Comment on above: Performed By: #### 2 21590 ####[facility],[address] [place] [address] Lymphocytes/100 WBC (Bld) 27.9 % Normal 20.0 - 45.0 [facility] Comment on above: Performed By: #### 2 84869 ####[facility],[address] [place] [address] MANUAL DIFF N/A Normal [facility] Comment on above: Performed By: #### 2 68077 ####[facility],[address] [place] [address] MCH (RBC) [Entitic mass] 29 pg Normal 27 - 33 [facility] Comment on above: Performed By: #### 2 91809 ####[facility],[address] [place] [address] MCHC 34 X10 3 Normal 32 - 36 [facility] Comment on above: Performed By: #### 2 30118 ####[facility],[address] [place] [address] MCV (RBC) [Entitic vol] 85 fL Normal 80 - 99 [facility] Comment on above: Performed By: #### 2 82782 ####[facility],[address] [place] [address] [place] # 0.44 x10EE3/UL Normal 0.20 - 1.00 [facility] Comment on above: Performed By: #### 2 68159 ####[facility],[address] [place] [address] MONOS % 8.8 % Normal 0.0 - 10.0 [facility] Comment on above: Performed By: #### 2 05814 ####[facility],[address] [place] [address] Morphology Julian (Bld) [Interp] N/A Normal [facility] Comment on above: Performed By: #### 2 08031 ####[facility],[address] [place] [address] Neut # 2.98 x10EE3/UL Normal 1.50 - 7.10 [facility] Comment on above: Performed By: #### 2 13543 ####[facility],[address] [place] [address] Neutrophils/100 WBC (Bld) 59.4 % Normal 46.0 - 76.0 [facility] Comment on above: Performed By: #### 2 28103 ####[facility],[address] [place] [address] PLATELET 275 x10EE3/UL Normal 150 - 450 [facility] Comment on above: Performed By: #### 2 56321 ####[facility],[address] [place] [address] Platelet mean volume (Bld) [Entitic vol] 8.2 fL Normal 6.6 - 10.5 [facility] Comment on above: Result Comment: AUTO MATED DIFFERENTIAL Performed By: #### 2 07427 ####[facility],[address] [place] [address]81 RBC 4.58 x 10EE6/UL Normal 4.10 - 5.30 [facility] Comment on above: Performed By: #### 2 41930 ####[facility],[address] [place] [address] WBC 5.0 x 10EE3/UL Normal 4.5 - 10.8 [facility] Comment on above: Performed By: #### 2 90911 ####[facility],[address] [place] [address] CMP with eGFRon 12-17-2024 AGE 74 years Normal [facility] Comment on above: Performed By: #### 2 51771 ####[facility],[address] [place] [address] Albumin [Mass/Vol] 3.6 g/dL Normal 3.4 - 5.0 [facility] Comment on above: Performed By: #### 2 22205 ####[facility],[address] [place] [address] Albumin/Globulin [Mass ratio] 1.0 {ratio} Normal 0.9 - 1.6 [facility] Comment on above: Performed By: #### 2 92943 ####[facility],[address] [place], [place] [address] ALK PHOS 85 U/L Normal 46 - 116 [facility] Comment on above: Performed By: #### 2 96321 ####[facility],[address] [place] [address] ALT [Catalytic activity/Vol] 23 U/L Normal 16 - 63 [facility] Comment on above: Performed By: #### 2 18285 ####[facility],[address] [place] [address] Anion gap [Moles/Vol] 10 mmol/L Normal 10 - 20 [facility] Comment on above: Performed By: #### 2 10242 ####[facility],[address] [place] [address] AST [Catalytic activity/Vol] 16 U/L Normal 13 - 39 [facility] Comment on above: Performed By: #### 2 79825 ####[facility],[address] [place] [address] B/C RATIO 15 ratio Normal 0 - 30 [facility] Comment on above: Performed By: #### 2 35897 ####[facility],[address] [place], [place] [address] Bilirubin [Mass/Vol] 0.3 mg/dL Normal 0.2 - 1.0 [facility] Comment on above: Performed By: #### 2 66713 ####[facility],[address] [place] [address] Calcium [Mass/Vol] 9.0 mg/dL Normal 8.5 - 10.1 [facility] Comment on above: Performed By: #### 2 03916 ####[facility],[address] [place] [address] Chloride [Moles/Vol] 103 mmol/L Normal 98 - 107 [facility] Comment on above: Performed By: #### 2 40040 ####[facility],[address] [place], [place] [address] CMP with eGFR Normal [facility] Comment on above: Result Comment: COMP REHENSIVE METABOLIC PANEL Performed By: #### 2 79922 ####[facility],[address] [place] [address] CO2 [Moles/Vol] 30.2 mmol/L Normal 21.0 - 32.0 [facility] Comment on above: Performed By: #### 2 84070 ####[facility],[address] [place] [address] Creatinine [Mass/Vol] 0.93 mg/dL Normal 0.55 - 1.02 [facility] Comment on above: Performed By: #### 2 29904 ####[facility],[address] [place] [address]67 eGFR 59 ML/MINUTE Low 60 - 999 [facility] Comment on above: Performed By: #### 2 72734 ####[address] [address] GFR/1.73 sq M.predicted among non-blacks MDRD (S/P/Bld) [Vol rate/Area] mL/min/{1.73_m2} Normal 60 - 999 [facility] Comment on above: Result Comment: ACCO RDING TO THE NATIONAL KIDNEY DISEASE EDUCATION PROGRAM(NKDE), A NORMAL eGFRIS A VALUE GREATER THAN OR EQUAL TO 60 ML/MIN/1.73 SQ METERS.CHRONIC KIDNEY DISEASE: <60mL/MIN/1.73 SQ METERSKIDNEY FAILURE: <15mL/MIN/1.73 SQ METERSTHIS TEST SHOULD ONLY BE USED FOR PATIENTS 18 YEARS OF AGE AND OLDER. Performed By: #### 2 11852 ####[facility],[address] [place] [address] 31192 Globulin (S) [Mass/Vol] 3.5 g/dL Normal 1.5 - 3.8 [facility] Comment on above: Performed By: #### 2 05249 ####[address] [address] Glucose [Mass/Vol] 76 mg/dL Normal 74 - 106 [facility] Comment on above: Performed By: #### 2 09329 ####[facility],[address] [place] [address] 57759 Potassium [Moles/Vol] 4.4 mmol/L Normal 3.5 - 5.1 [facility] Comment on above: Performed By: #### 2 32783 ####[facility],[address] [place] [address] 74168 Protein [Mass/Vol] 7.1 g/dL Normal 6.4 - 8.2 [facility] Comment on above: Performed By: #### 2 62378 ####[facility],[address] [place] [address] 43014 Sodium [Moles/Vol] 139 mmol/L Normal 136 - 145 [facility] Comment on above: Performed By: #### 2 70371 ####[facility],[address] [place] [address] 40978 Urea nitrogen [Mass/Vol] 14 mg/dL Normal 7 - 18 [facility] Comment on above: Performed By: #### 2 47913 ####[facility],[address] [place] [address] 76845 LIPID PROFILEon 12-17-2024 Cholesterol [Mass/Vol] 261 mg/dL High 0 - 240 [facility] Comment on above: Performed By: #### 2 83994 ####[facility],[address] [place] [address] 19010 Cholesterol in HDL [Mass/Vol] 56 mg/dL Normal 40 - 60 [facility] Comment on above: Performed By: #### 2 62409 ####[facility],[address] [place] [address] 29778 Cholesterol in LDL [Mass/Vol] 171 mg/dL High 0 - 129 [facility] Comment on above: Performed By: #### 2 01197 ####[facility],[address] [place] [address] 80908 Cholesterol.total/Dottie sterol in HDL [Mass ratio] 4.7 {ratio} Normal 0.0 - 5.0 [facility] Comment on above: Performed By: #### 2 76676 ####[facility],[address] [place] [address] 29961 Lipid 1996 panel Normal [facility] Comment on above: Result Comment: LIPI D PROFILE Performed By: #### 2 25065 ####[facility],[address] [place] [address] 04716 Triglyceride [Mass/Vol] 168 mg/dL High 0 - 150 [facility] Comment on above: Performed By: #### 2 13279 ####[facility],[address] [place] [address] 87946 [facility]-m[facility]con 12-18-19 25 Free T3 [Mass/Vol] 2.3 pg/mL Normal 2.3-4.[address] [facility] Comment on above: Order Comment: Speci men Type: BLOOD SPECIMEN Ordering Facility: [facility] Address: [address] [place] [address] Performed By: #### 3 051-0 #### [facility] CLIA [id number] [address] [place] [address] [place] T4-FREE (FREE THYROXINE)on 0 12-17-2024 Free T4 [Mass/Vol] 1.25 ng/dL Normal 0.76 - 1.46 [facility] Comment on above: Result Comment: P otential of falsely elevated results when biotin concentrations are > 10ng/mL. Performed By: #### 2 85395 ####[facility],[address] [place] [address] 30123 TSHon 12-17-2024 TSH Qn 1.70 m[IU]/L Normal 0.35 - 3.74 [facility] Comment on above: Performed By: #### 2 79271 ####[facility],[address] [place], [place] [id number] ED MED ADMINISTRATION DETAIL on 12-14-2024 ED MED ADMINISTRATION DETAIL Normal [facility] ED NURSES CLINICAL NOTEon ED NURSES CLINICAL NOTE Normal [facility] ED ORDER SHEET (CPOE ONLY)on 12-14-2024 ED ORDER SHEET (CPOE ONLY) Normal [facility] ED PHYSICIAN CLINICAL REPORT on 12-14-2024 ED PHYSICIAN CLINICAL REPORT Normal [facility] ED SUPER BILLon 12-14-2024 ED SUPER BILL Normal [facility] ED VISIT SUMMARYon ED VISIT SUMMARY Normal [facility] ED VITALS FLOW SHEETon 12-14 ED VITALS FLOW SHEET Normal [facility] CBC + DIFFon 12-13-2024 Baso # 0.03 x10EE3/UL Normal 0.00 - 0.10 [facility] Comment on above: Performed By: #### 2 13639 ####[facility],[address] [place] [address] Basophils/100 WBC (Bld) 0.2 % Normal 0.0 - 2.0 [facility] Comment on above: Performed By: #### 2 64517 ####[facility],[address] [place] [address] 13551 CBC + DIFF Normal [facility] Comment on above: Result Comment: CBC- COMPLETE BLOOD COUNT Performed By: #### 2 99463 ####[facility],[address] [place] [address] 81771 EO # 0.06 x10EE3/UL Normal 0.00 - 0.50 [facility] Comment on above: Performed By: #### 2 55990 ####[facility],[address] [place] [address] 27605 Eosinophils/100 WBC (Bld) 0.5 % Normal 0.0 - 7.0 [facility] Comment on above: Performed By: #### 2 66206 ####[facility],[address] [place] [address] 43554 Erythrocyte distribution width (RBC) [Ratio] 13.8 % Normal 12.0 - 15.6 [facility] Comment on above: Performed By: #### 2 50683 ####[facility],[address] [place], [place] [address] Hematocrit (Bld) [Volume fraction] 49.7 % High 34.0 - 46.0 [facility] Comment on above: Performed By: #### 2 11798 ####[facility],[address] [place] [address] Hemoglobin (Bld) [Mass/Vol] 16.8 g/dL High 12.0 - 16.0 [facility] Comment on above: Performed By: #### 2 91064 ####[facility],[address] [place] [address] Lymph # 1.12 x10EE3/UL Normal 0.80 - 2.80 [facility] Comment on above: Performed By: #### 2 87147 ####[facility],[address] [place], [place] [address] Lymphocytes/100 WBC (Bld) 9.7 % Low 20.0 - 45.0 [facility] Comment on above: Performed By: #### 2 15357 ####[facility],[address] [place] [address] 66281 MANUAL DIFF N/A Normal [facility] Comment on above: Performed By: #### 2 60614 ####[facility],[address] [place] [address] 80322 MCH (RBC) [Entitic mass] 29 pg Normal 27 - 33 [facility] Comment on above: Performed By: #### 2 05232 ####[facility],[address] [place] [address] 51023 MCHC 34 X10 3 Normal 32 - 36 [facility] Comment on above: Performed By: #### 2 51218 ####[facility],[address] [place] [address] 18785 MCV (RBC) [Entitic vol] 86 fL Normal 80 - 99 [facility] Comment on above: Performed By: #### 2 71224 ####[facility],[address] [place] [address] 40486 [place] # 0.83 x10EE3/UL Normal 0.20 - 1.00 [facility] Comment on above: Performed By: #### 2 34751 ####[facility],[address] [place] [address] 13621 MONOS % 7.2 % Normal 0.0 - 10.0 [facility] Comment on above: Performed By: #### 2 93686 ####[facility],[address] [place] [address] 66776 Morphology Julian (Bld) [Interp] N/A Normal [facility] Comment on above: Performed By: #### 2 31401 ####[facility],[address] [place] [address] 87369 Neut # 9.54 x10EE3/UL High 1.50 - 7.10 [facility] Comment on above: Performed By: #### 2 85076 ####[facility],[address] [place] [address] 99746 Neutrophils/100 WBC (Bld) 82.4 % High 46.0 - 76.0 [facility] Comment on above: Performed By: #### 2 45997 ####[facility],[address] [place] [address] 08662 PLATELET 350 x10EE3/UL Normal 150 - 450 [facility] Comment on above: Performed By: #### 2 91961 ####[facility],[address] [place] [address] 73437 Platelet mean volume (Bld) [Entitic vol] 7.9 fL Normal 6.6 - 10.5 [facility] Comment on above: Result Comment: AUTO MATED DIFFERENTIAL Performed By: #### 2 64546 ####[facility],[address] [place] [address] 52659 RBC 5.75 x 10EE6/UL High 4.10 - 5.30 [facility] Comment on above: Performed By: #### 2 85881 ####[facility],[address] [place] [address] 41519 WBC 11.6 x 10EE3/UL High 4.5 - 10.8 [facility] Comment on above: Performed By: #### 2 32491 ####[facility],[address] [place] [address] 93152 CMP with eGFRon 12-13-2024 AGE 74 years Normal [facility] Comment on above: Performed By: #### 2 66803 ####[facility],[address] [place] [address] 66925 Albumin [Mass/Vol] 4.4 g/dL Normal 3.4 - 5.0 [facility] Comment on above: Performed By: #### 2 76890 ####[facility],[address] [place] [address] 85824 Albumin/Globulin [Mass ratio] 1.0 {ratio} Normal 0.9 - 1.6 [facility] Comment on above: Performed By: #### 2 65714 ####[facility],[address] [place] [address] 53193 ALK PHOS 101 U/L Normal 46 - 116 [facility] Comment on above: Performed By: #### 2 85831 ####[facility],[address] [place] [address] 59562 ALT [Catalytic activity/Vol] 22 U/L Normal 16 - 63 [facility] Comment on above: Performed By: #### 2 50485 ####[facility],[address] [place] [address] 79537 Anion gap [Moles/Vol] 21 mmol/L High 10 - 20 [facility] Comment on above: Performed By: #### 2 74692 ####[facility],[address] [place] [address] 64756 AST [Catalytic activity/Vol] 28 U/L Normal 13 - 39 [facility] Comment on above: Performed By: #### 2 46890 ####[facility],[address] [place] [address] 92375 B/C RATIO 10 ratio Normal 0 - 30 [facility] Comment on above: Performed By: #### 2 91971 ####[facility],[address] [place] [address] 06005 Bilirubin [Mass/Vol] 0.5 mg/dL Normal 0.2 - 1.0 [facility] Comment on above: Performed By: #### 2 24155 ####[facility],[address] [place] [address] 74282 Calcium [Mass/Vol] 9.8 mg/dL Normal 8.5 - 10.1 [facility] Comment on above: Performed By: #### 2 25438 ####[facility],[address] [place] [address] 07066 Chloride [Moles/Vol] 95 mmol/L Low 98 - 107 [facility] Comment on above: Performed By: #### 2 14977 ####[facility],[address] [place] [address] 10887 CMP with eGFR Normal [facility] Comment on above: Result Comment: COMP REHENSIVE METABOLIC PANEL Performed By: #### 2 36332 ####[facility],[address] [place] [address] 72044 CO2 [Moles/Vol] 23.5 mmol/L Normal 21.0 - 32.0 [facility] Comment on above: Performed By: #### 2 48849 ####[facility],[address] [place] [address] 82514 Creatinine [Mass/Vol] 2.32 mg/dL High 0.55 - 1.02 [facility] Comment on above: Performed By: #### 2 08462 ####[facility],[address] [place] [address] 51220 eGFR 21 ML/MINUTE Low 60 - 999 [facility] Comment on above: Performed By: #### 2 34080 ####[facility],[address] [place] [address] 00085 eGFR(AA) 25 ML/MINUTE Low 60 - 999 [facility] Comment on above: Result Comment: ACCO RDING TO THE NATIONAL KIDNEY DISEASE EDUCATION PROGRAM(NKDE), A NORMAL eGFRIS A VALUE GREATER THAN OR EQUAL TO 60 ML/MIN/1.73 SQ METERS.CHRONIC KIDNEY DISEASE: <60mL/MIN/1.73 SQ METERSKIDNEY FAILURE: <15mL/MIN/1.73 SQ METERSTHIS TEST SHOULD ONLY BE USED FOR PATIENTS 18 YEARS OF AGE AND OLDER. Performed By: #### 2 67167 ####[facility],[address] [place] [address] 64619 Globulin (S) [Mass/Vol] 4.3 g/dL High 1.5 - 3.8 [facility] Comment on above: Performed By: #### 2 98324 ####[facility],[address] [place] [address] 90178 Glucose [Mass/Vol] 139 mg/dL High 74 - 106 [facility] Comment on above: Performed By: #### 2 57965 ####[facility],[address] [place] [address] 38786 Potassium [Moles/Vol] 4.0 mmol/L Normal 3.5 - 5.1 [facility] Comment on above: Performed By: #### 2 53085 ####[facility],[address] [place] [address] 92866 Protein [Mass/Vol] 8.7 g/dL High 6.4 - 8.2 [facility] Comment on above: Performed By: #### 2 45471 ####[facility],[address] [place] [address] Sodium [Moles/Vol] 135 mmol/L Low 136 - 145 [facility] Comment on above: Performed By: #### 2 68349 ####[facility],[address] [place] [address] Urea nitrogen [Mass/Vol] 24 mg/dL High 7 - 18 [facility] Comment on above: Performed By: #### 2 29406 ####[facility],[address] [place] [address] LIPASEon 12-13-2024 Lipase [Catalytic activity/Vol] 76.0 U/L Normal 15.0 - 78.0 [facility] Comment on above: Result Comment: *PLE ASE NOTE THAT RANGES FOR LIPASE HAVE CHANGED OF 04/12/23 DUE TO AN ASSAYUPDATE BY THE HAND BINDER STRIPPER.THE NEW ASSAY RANGE IS 6-250 U/L, WITH A REFERENCERANGE OF 16-77 U/L. Performed By: #### 2 07627 ####[facility],[address] [place] [address] CBC + DIFFon 12-09-2024 Baso # 0.02 x10EE3/UL Normal 0.00 - 0.10 [facility] Comment on above: Performed By: #### 2 28427 ####[facility],[address] [place] [address] Basophils/100 WBC (Bld) 0.2 % Normal 0.0 - 2.0 [facility] Comment on above: Performed By: #### 2 29952 ####[facility],[address] [place] [address] CBC + DIFF Normal [facility] Comment on above: Result Comment: CBC- COMPLETE BLOOD COUNT Performed By: #### 2 86062 ####[facility],[address] [place] [address] EO # 0.13 x10EE3/UL Normal 0.00 - 0.50 [facility] Comment on above: Performed By: #### 2 05000 ####[facility],[address] [place], [place] [address] Eosinophils/100 WBC (Bld) 1.4 % Normal 0.0 - 7.0 [facility] Comment on above: Performed By: #### 2 15708 ####[facility],[address] [place] [address] Erythrocyte distribution width (RBC) [Ratio] 13.8 % Normal 12.0 - 15.6 [facility] Comment on above: Performed By: #### 2 93928 ####[facility],[address] [place] [address] Hematocrit (Bld) [Volume fraction] 46.0 % Normal 34.0 - 46.0 [facility] Comment on above: Performed By: #### 2 91781 ####[facility],[address] [place] [address] Hemoglobin (Bld) [Mass/Vol] 16.1 g/dL High 12.0 - 16.0 [facility] Comment on above: Performed By: #### 2 14838 ####[facility],[address] [place] [address] 84442 Lymph # 1.12 x10EE3/UL Normal 0.80 - 2.80 [facility] Comment on above: Performed By: #### 2 59249 ####[facility],[address] [place], [place] [address] Lymphocytes/100 WBC (Bld) 12.0 % Low 20.0 - 45.0 [facility] Comment on above: Performed By: #### 2 85616 ####[facility],[address] [place], [place] [address] MANUAL DIFF N/A Normal [facility] Comment on above: Performed By: #### 2 22423 ####[address],[place] [address] MCH (RBC) [Entitic mass] 30 pg Normal 27 - 33 [facility] Comment on above: Performed By: #### 2 34307 ####[facility],[address] [place] [address] MCHC 35 X10 3 Normal 32 - 36 [facility] Comment on above: Performed By: #### 2 25596 ####[facility],[address] [place] [address] MCV (RBC) [Entitic vol] 86 fL Normal 80 - 99 [facility] Comment on above: Performed By: #### 2 69256 ####[facility],[address] [place] [address] [place] # 0.61 x10EE3/UL Normal 0.20 - 1.00 [facility] Comment on above: Performed By: #### 2 71845 ####[facility],[address] [place] [address] MONOS % 6.5 % Normal 0.0 - 10.0 [facility] Comment on above: Performed By: #### 2 92569 ####[facility],[address] [place] [address] Morphology Julian (Bld) [Interp] N/A Normal [facility] Comment on above: Performed By: #### 2 82731 ####[facility],[address] [place] [address] Neut # 7.44 x10EE3/UL High 1.50 - 7.10 [facility] Comment on above: Performed By: #### 2 23626 ####[facility],[address] [place] [address] Neutrophils/100 WBC (Bld) 79.9 % High 46.0 - 76.0 [facility] Comment on above: Performed By: #### 2 17336 ####[facility],[address] [place] [address] 33295 PLATELET 309 x10EE3/UL Normal 150 - 450 [facility] Comment on above: Performed By: #### 2 61378 ####[facility],[address] [place] [address] 52910 Platelet mean volume (Bld) [Entitic vol] 7.8 fL Normal 6.6 - 10.5 [facility] Comment on above: Result Comment: AUTO MATED DIFFERENTIAL Performed By: #### 2 52760 ####[facility],[address] [place] [address] 78904 RBC 5.33 x 10EE6/UL High 4.10 - 5.30 [facility] Comment on above: Performed By: #### 2 19414 ####[facility],[address] [place] [address] 95547 WBC 9.3 x 10EE3/UL Normal 4.5 - 10.8 [facility] Comment on above: Performed By: #### 2 53479 ####[facility],[address] [place] [address] 22147 CMP with eGFRon 12-09-2024 AGE 74 years Normal [facility] Comment on above: Performed By: #### 2 71892 ####[facility],[address] [place] [address] 09119 Albumin [Mass/Vol] 4.4 g/dL Normal 3.4 - 5.0 [facility] Comment on above: Performed By: #### 2 14056 ####[facility],[address] [place] [address] 43822 Albumin/Globulin [Mass ratio] 1.1 {ratio} Normal 0.9 - 1.6 [facility] Comment on above: Performed By: #### 2 11520 ####[facility],[address] [place] [address] 42547 ALK PHOS 105 U/L Normal 46 - 116 [facility] Comment on above: Performed By: #### 2 74802 ####[facility],[address] [place] [address] 50121 ALT [Catalytic activity/Vol] 27 U/L Normal 16 - 63 [facility] Comment on above: Performed By: #### 2 61918 ####[facility],[address] [place] [address] 54393 Anion gap [Moles/Vol] 17 mmol/L Normal 10 - 20 [facility] Comment on above: Performed By: #### 2 18186 ####[facility],[address] [place] [address] 29582 AST [Catalytic activity/Vol] 21 U/L Normal 13 - 39 [facility] Comment on above: Performed By: #### 2 55032 ####[facility],[address] [place] [address] 78266 B/C RATIO 20 ratio Normal 0 - 30 [facility] Comment on above: Performed By: #### 2 99758 ####[facility],[address] [place] [address] 75821 Bilirubin [Mass/Vol] 0.5 mg/dL Normal 0.2 - 1.0 [facility] Comment on above: Performed By: #### 2 45840 ####[facility],[address] [place] [address] 69641 Calcium [Mass/Vol] 9.8 mg/dL Normal 8.5 - 10.1 [facility] Comment on above: Performed By: #### 2 99210 ####[facility],[address] [place] [address] 95548 Chloride [Moles/Vol] 97 mmol/L Low 98 - 107 [facility] Comment on above: Performed By: #### 2 81898 ####[facility],[address] [place] [address] 09024 CMP with eGFR Normal [facility] Comment on above: Result Comment: COMP REHENSIVE METABOLIC PANEL Performed By: #### 2 56018 ####[facility],[address] [place] [address] 62594 CO2 [Moles/Vol] 32.6 mmol/L High 21.0 - 32.0 [facility] Comment on above: Performed By: #### 2 59976 ####[facility],[address] [place] [address] 07912 Creatinine [Mass/Vol] 1.11 mg/dL High 0.55 - 1.02 [facility] Comment on above: Performed By: #### 2 82378 ####[facility],[address] [place] [address] 20529 eGFR 48 ML/MINUTE Low 60 - 999 [facility] Comment on above: Performed By: #### 2 01411 ####[facility],[address] [place] [address] 67417 eGFR(AA) 58 ML/MINUTE Low 60 - 999 [facility] Comment on above: Result Comment: ACCO RDING TO THE NATIONAL KIDNEY DISEASE EDUCATION PROGRAM(NKDE), A NORMAL eGFRIS A VALUE GREATER THAN OR EQUAL TO 60 ML/MIN/1.73 SQ METERS.CHRONIC KIDNEY DISEASE: <60mL/MIN/1.73 SQ METERSKIDNEY FAILURE: <15mL/MIN/1.73 SQ METERSTHIS TEST SHOULD ONLY BE USED FOR PATIENTS 18 YEARS OF AGE AND OLDER. Performed By: #### 2 73544 ####[facility],[address] [place] [address] 63198 Globulin (S) [Mass/Vol] 4.0 g/dL High 1.5 - 3.8 [facility] Comment on above: Performed By: #### 2 25239 ####[facility],[address] [place] [address] 91797 Glucose [Mass/Vol] 143 mg/dL High 74 - 106 [facility] Comment on above: Performed By: #### 2 93613 ####[facility],[address] [place] [address] 07642 Potassium [Moles/Vol] 3.3 mmol/L Low 3.5 - 5.1 [facility] Comment on above: Performed By: #### 2 19362 ####[facility],[address] [place] [address] 79666 Protein [Mass/Vol] 8.4 g/dL High 6.4 - 8.2 [facility] Comment on above: Performed By: #### 2 63093 ####[facility],[address] [place] [address] 61863 Sodium [Moles/Vol] 143 mmol/L Normal 136 - 145 [facility] Comment on above: Performed By: #### 2 77246 ####[facility],[address] [place], [place] [address] Urea nitrogen [Mass/Vol] 22 mg/dL High 7 - 18 [facility] Comment on above: Performed By: #### 2 63554 ####[facility],[address] [place], [place] [id number] ED MED ADMINISTRATION DETAIL on 12-09-2024 ED MED ADMINISTRATION DETAIL Normal [facility] ED NURSES CLINICAL NOTEon ED NURSES CLINICAL NOTE Normal [facility] ED ORDER SHEET (CPOE ONLY)on 12-09-2024 ED ORDER SHEET (CPOE ONLY) Normal [facility] ED PHYSICIAN CLINICAL REPORT on 12-09-2024 ED PHYSICIAN CLINICAL REPORT Normal [facility] ED SUPER BILLon 12-09-2024 ED SUPER BILL Normal [facility] ED VISIT SUMMARYon ED VISIT SUMMARY Normal [facility] ED VITALS FLOW SHEETon 12-09 ED VITALS FLOW SHEET Normal [facility] CBC + DIFFon 12-06-2024 Baso # 0.03 x10EE3/UL Normal 0.00 - 0.10 [facility] Comment on above: Performed By: #### 2 08918 ####[facility],[address] [place], [place] [id number] Basophils/100 WBC (Bld) 0.3 % Normal 0.0 - 2.0 [facility] Comment on above: Performed By: #### 2 47610 ####[facility],[address] [place] [address] CBC + DIFF Normal [facility] Comment on above: Result Comment: CBC- COMPLETE BLOOD COUNT Performed By: #### 2 07285 ####[facility],[address] [place] [address] EO # 0.07 x10EE3/UL Normal 0.00 - 0.50 [facility] Comment on above: Performed By: #### 2 37369 ####[facility],[address] [place] [address] Eosinophils/100 WBC (Bld) 0.6 % Normal 0.0 - 7.0 [facility] Comment on above: Performed By: #### 2 30573 ####[facility],[address] [place] [address] Erythrocyte distribution width (RBC) [Ratio] 13.8 % Normal 12.0 - 15.6 [facility] Comment on above: Performed By: #### 2 06905 ####[facility],[address] [place] [address] Hematocrit (Bld) [Volume fraction] 50.0 % High 34.0 - 46.0 [facility] Comment on above: Performed By: #### 2 73858 ####[facility],[address] [place] [address] Hemoglobin (Bld) [Mass/Vol] 17.3 g/dL High 12.0 - 16.0 [facility] Comment on above: Performed By: #### 2 64697 ####[facility],[address] [place] [address] Lymph # 1.55 x10EE3/UL Normal 0.80 - 2.80 [facility] Comment on above: Performed By: #### 2 89572 ####[facility],[address] [place], [place] [address] Lymphocytes/100 WBC (Bld) 13.8 % Low 20.0 - 45.0 [facility] Comment on above: Performed By: #### 2 23827 ####[facility],[address] [place] [address] MANUAL DIFF N/A Normal [facility] Comment on above: Performed By: #### 2 18431 ####[facility],[address] [place] [address] MCH (RBC) [Entitic mass] 30 pg Normal 27 - 33 [facility] Comment on above: Performed By: #### 2 21219 ####[facility],[address] [place] [address] MCHC 35 X10 3 Normal 32 - 36 [facility] Comment on above: Performed By: #### 2 79856 ####[facility],[address] [place] [address] MCV (RBC) [Entitic vol] 86 fL Normal 80 - 99 [facility] Comment on above: Performed By: #### 2 81978 ####[facility],[address] [place] [address] [place] # 0.75 x10EE3/UL Normal 0.20 - 1.00 [facility] Comment on above: Performed By: #### 2 27412 ####[facility],[address] [place] [address] MONOS % 6.7 % Normal 0.0 - 10.0 [facility] Comment on above: Performed By: #### 2 91022 ####[facility],[address] [place], [place] [phone] Morphology Julian (Bld) [Interp] N/A Normal [facility] Comment on above: Performed By: #### 2 01485 ####[facility],[address] [place] [address] 96740 Neut # 8.82 x10EE3/UL High 1.50 - 7.10 [facility] Comment on above: Performed By: #### 2 67942 ####[facility],[address] [place] [address] 54525 Neutrophils/100 WBC (Bld) 78.6 % High 46.0 - 76.0 [facility] Comment on above: Performed By: #### 2 47751 ####[facility],[address] [place] [address] 22454 PLATELET 360 x10EE3/UL Normal 150 - 450 [facility] Comment on above: Performed By: #### 2 73775 ####[facility],[address] [place] [address] 01894 Platelet mean volume (Bld) [Entitic vol] 8.0 fL Normal 6.6 - 10.5 [facility] Comment on above: Result Comment: AUTO MATED DIFFERENTIAL Performed By: #### 2 74343 ####[facility],[address] [place] [address] 60862 RBC 5.80 x 10EE6/UL High 4.10 - 5.30 [facility] Comment on above: Performed By: #### 2 92141 ####[facility],[address] [place] [address] 32017 WBC 11.2 x 10EE3/UL High 4.5 - 10.8 [facility] Comment on above: Performed By: #### 2 76872 ####[facility],[address] [place] [address] 69468 CMP with eGFRon 12-06-2024 AGE 74 years Normal [facility] Comment on above: Performed By: #### 2 08291 ####[facility],[address] [place] [address] 85211 Albumin [Mass/Vol] 4.7 g/dL Normal 3.4 - 5.0 [facility] Comment on above: Performed By: #### 2 54492 ####[facility],[address] [place] [address] 74724 Albumin/Globulin [Mass ratio] 1.1 {ratio} Normal 0.9 - 1.6 [facility] Comment on above: Performed By: #### 2 79152 ####[facility],[address] [place] [address] 27819 ALK PHOS 111 U/L Normal 46 - 116 [facility] Comment on above: Performed By: #### 2 62828 ####[facility],[address] [place] [address] 51958 ALT [Catalytic activity/Vol] 27 U/L Normal 16 - 63 [facility] Comment on above: Performed By: #### 2 44868 ####[facility],[address] [place] [address] 93243 Anion gap [Moles/Vol] 22 mmol/L High 10 - 20 [facility] Comment on above: Performed By: #### 2 50681 ####[facility],[address] [place] [address] 37084 AST [Catalytic activity/Vol] 22 U/L Normal 13 - 39 [facility] Comment on above: Performed By: #### 2 44299 ####[facility],[address] [place] [address] 98769 B/C RATIO 15 ratio Normal 0 - 30 [facility] Comment on above: Performed By: #### 2 12552 ####[facility],[address] [place] [address] 98821 Bilirubin [Mass/Vol] 0.5 mg/dL Normal 0.2 - 1.0 [facility] Comment on above: Performed By: #### 2 95058 ####[facility],[address] [place] [address] 86326 Calcium [Mass/Vol] 10.4 mg/dL High 8.5 - 10.1 [facility] Comment on above: Performed By: #### 2 51774 ####[facility],[address] [place], [place] [phone] Chloride [Moles/Vol] 95 mmol/L Low 98 - 107 [facility] Comment on above: Performed By: #### 2 23623 ####[facility],[address] [place] [address] CMP with eGFR Normal [facility] Comment on above: Result Comment: COMP REHENSIVE METABOLIC PANEL Performed By: #### 2 71192 ####[facility],[address] [place] [address] CO2 [Moles/Vol] 24.2 mmol/L Normal 21.0 - 32.0 [facility] Comment on above: Performed By: #### 2 83009 ####[facility],[address] [place] [address] Creatinine [Mass/Vol] 1.84 mg/dL High 0.55 - 1.02 [facility] Comment on above: Performed By: #### 2 62222 ####[facility],[address] [place] [address] eGFR 27 ML/MINUTE Low 60 - 999 [facility] Comment on above: Performed By: #### 2 31619 ####[facility],[address] [place], [place] [phone] eGFR(AA) 33 ML/MINUTE Low 60 - 999 [facility] Comment on above: Result Comment: ACCO RDING TO THE NATIONAL KIDNEY DISEASE EDUCATION PROGRAM(NKDE), A NORMAL eGFRIS A VALUE GREATER THAN OR EQUAL TO 60 ML/MIN/1.73 SQ METERS.CHRONIC KIDNEY DISEASE: <60mL/MIN/1.73 SQ METERSKIDNEY FAILURE: <15mL/MIN/1.73 SQ METERSTHIS TEST SHOULD ONLY BE USED FOR PATIENTS 18 YEARS OF AGE AND OLDER. Performed By: #### 2 15683 ####[facility],[address],[place] [address] Globulin (S) [Mass/Vol] 4.4 g/dL High 1.5 - 3.8 [facility] Comment on above: Performed By: #### 2 10077 ####[facility],[address] [place] [address] 45247 Glucose [Mass/Vol] 154 mg/dL High 74 - 106 [facility] Comment on above: Performed By: #### 2 66346 ####[facility],[address] [place] [address] 00095 Potassium [Moles/Vol] 3.8 mmol/L Normal 3.5 - 5.1 [facility] Comment on above: Performed By: #### 2 40204 ####[facility],[address] [place] [address] 98767 Protein [Mass/Vol] 9.1 g/dL High 6.4 - 8.2 [facility] Comment on above: Performed By: #### 2 22907 ####[facility],[address] [place] [address] 32814 Sodium [Moles/Vol] 137 mmol/L Normal 136 - 145 [facility] Comment on above: Performed By: #### 2 32672 ####[facility],[address] [place] [address] 02200 Urea nitrogen [Mass/Vol] 28 mg/dL High 7 - 18 [facility] Comment on above: Performed By: #### 2 61255 ####[facility],[address] [place] [address] 13757 ED MED ADMINISTRATION DETAIL on 12-06-2024 ED MED ADMINISTRATION DETAIL Normal [facility] ED NURSES CLINICAL NOTEon ED NURSES CLINICAL NOTE Normal [facility] ED ORDER SHEET (CPOE ONLY)on 12-06-2024 ED ORDER SHEET (CPOE ONLY) Normal [facility] ED PHYSICIAN CLINICAL REPORT on 12-06-2024 ED PHYSICIAN CLINICAL REPORT Normal [facility] ED SUPER BILLon 12-06-2024 ED SUPER BILL Normal [facility] ED VISIT SUMMARYon ED VISIT SUMMARY Normal [facility] ED VITALS FLOW SHEETon 12-06 ED VITALS FLOW SHEET Normal [facility] LACTATEon 12-06-2024 Lactate [Moles/Vol] 2.2 mmol/L High 0.4 - 2.0 [facility] Comment on above: Result Comment: LACT ATE 3 HR NOTIFIED TO: _NATE 12/06/24.1112.CWB. . . LACTATE 3 HR NOTIFIED BY: _CWB 12/06/24.1112.CWB. . . Performed By: #### 2 73852 ####[place] [address] LIPASEon 12-06-2024 Lipase [Catalytic activity/Vol] 136.0 U/L High 15.0 - 78.0 [facility] Comment on above: Result Comment: *PLE ASE NOTE THAT RANGES FOR LIPASE HAVE CHANGED OF 04/12/23 DUE TO AN ASSAYUPDATE BY THE HAND BINDER STRIPPER.THE NEW ASSAY RANGE IS 6-250 U/L, WITH A REFERENCERANGE OF 16-77 U/L. Performed By: #### 2 81645 ####[facility],[address] [place] [address] TROPONINon 12-06-2024 HS TROPONIN 4.8 pg/mL Normal 0.0 - 51.4 [facility] Comment on above: Performed By: #### 2 47410 ####[facility],[address] [place] [address] URINALYSISon 12-06-2024 Amorphous NONE Normal [facility] Comment on above: Performed By: #### 2 73100 ####[place] [id number] Bacteria 4+ Normal [facility] Comment on above: Performed By: #### 2 69738 ####[facility],[address] [place] [address] 49619 Bilirubin Ql (U) Negative Normal NORMAL: NEGATIVE [facility] Comment on above: Performed By: #### 2 93908 ####[facility],[address] [place] [address] 24690 Calcium Ox 1+ Normal NORMAL: NONE [facility] Comment on above: Performed By: #### 2 36386 ####[facility],[address] [place], [place] [phone] Casts SEE BELOW Normal [facility] Comment on above: Performed By: #### 2 58531 ####[facility],[address] [place] [address] 27905 Clarity (U) sl.cloudy Normal NORMAL: CLEAR [facility] Comment on above: Performed By: #### 2 76844 ####[facility],[address] [place] [address] 19720 Color (U) brown Normal NORMAL: YELLOW [facility] Comment on above: Performed By: #### 2 31589 ####[facility],[address] [place] [address] 52270 Crystals LM Nom (Urine sed) SEE BELOW Normal [facility] Comment on above: Performed By: #### 2 52350 ####[facility],[address] [place] [address] 58391 Epi Cells MANY Normal [facility] Comment on above: Performed By: #### 2 23986 ####[facility],[address] [place] [address] 86656 Glucose Ql (U) NORM Normal NORMAL: NORMAL [facility] Comment on above: Performed By: #### 2 44487 ####[facility],[address] [place] [address] 98132 Hemoglobin Ql (U) 10 Abnormal NORMAL: NEGATIVE [facility] Comment on above: Performed By: #### 2 64425 ####[facility],[address] [place] [address] 86223 Hyaline 1-5 Normal NORMAL: NONE [facility] Comment on above: Performed By: #### 2 41586 ####[facility],[address] [place] [address] 81861 Ketone 50 Abnormal NORMAL: NEGATIVE [facility] Comment on above: Performed By: #### 2 31787 ####[facility],[address] [place] [address] 21958 Leukocytes 25 Abnormal NORMAL: NEGATIVE [facility] Comment on above: Performed By: #### 2 50726 ####[facility],[address] [place] [address] Mucous NONE Normal [facility] Comment on above: Performed By: #### 2 04920 ####[facility],[address] [place] [address] 25804 Nitrite Ql (U) Negative Normal NORMAL: NEGATIVE [facility] Comment on above: Performed By: #### 2 04579 ####[facility],[address] [place] [address] 12579 pH (U) 5 [pH] Normal NORMAL: 5.0-8.0 [facility] Comment on above: Performed By: #### 2 87045 ####[facility],[address] [place] [address] 33775 Protein Ql (U) 30 Abnormal NORMAL: NEGATIVE [facility] Comment on above: Performed By: #### 2 69506 ####[facility],[address] [place] [address] 29788 Rbc NONE Normal 0-3/hpf [facility] Comment on above: Performed By: #### 2 93669 ####[facility],[address] [place] [address] 39952 Sp [place] 1.025 Normal NORMAL: 1.010-1.030 [facility] Comment on above: Performed By: #### 2 30001 ####[facility],[address] [place] [address] 09381 Specimen Type R Normal [facility] Comment on above: Performed By: #### 2 82306 ####[facility],[address] [place] [address] 37212 Urinalysis dipstick W Reflex Microscopic panel (U) SEE BELOW Normal [facility] Comment on above: Result Comment: MICR OSCOPIC Performed By: #### 2 55593 ####[facility],[address] [place], [place] [phone] Urobilinog NORM Normal NORMAL: NORMAL [facility] Comment on above: Performed By: #### 2 22626 ####[facility],[address] [place] [address] 08624 Wbc 1-5 Normal 0-5/hpf [facility] Comment on above: Performed By: #### 2 86574 ####[facility],[address] [place] [address] 93339 Yeast NONE Normal [facility] Comment on above: Performed By: #### 2 33949 ####[facility],[address] [place] [address] 17140 BMP with eGFRon 12-02-2024 AGE 74 years Normal [facility] Comment on above: Performed By: #### 2 10240 ####[facility],[address] [place] [address] 44424 Anion gap [Moles/Vol] 12 mmol/L Normal - [facility] Comment on above: Performed By: #### 2 46897 ####[facility],[address] [place] [address] 19670 BMP with eGFR Normal [facility] Comment on above: Result Comment: BASI C METABOLIC PANEL Performed By: #### 2 15577 ####[facility],[address] [place] [address] 67606 Calcium [Mass/Vol] 8.0 mg/dL Low 8.5 - 10.1 [facility] Comment on above: Performed By: #### 2 04594 ####[facility],[address] [place] [address] 19768 Chloride [Moles/Vol] 105 mmol/L Normal 98 - 107 [facility] Comment on above: Performed By: #### 2 21771 ####[facility],[address] [place] [address] 52669 CO2 [Moles/Vol] 26.0 mmol/L Normal 21.0 - 32.0 [facility] Comment on above: Performed By: #### 2 72406 ####[facility],[address] [place] [address] 47181 Creatinine [Mass/Vol] 1.19 mg/dL High 0.55 - 1.02 [facility] Comment on above: Performed By: #### 2 40397 ####[facility],[address] [place] [address] 52272 eGFR 44 ML/MINUTE Low 60 - 999 [facility] Comment on above: Performed By: #### 2 26285 ####[facility],[address] [place] [address] 47602 eGFR(AA) 54 ML/MINUTE Low 60 - 999 [facility] Comment on above: Result Comment: ACCO RDING TO THE NATIONAL KIDNEY DISEASE EDUCATION PROGRAM(NKDE), A NORMAL eGFRIS A VALUE GREATER THAN OR EQUAL TO 60 ML/MIN/1.73 SQ METERS.CHRONIC KIDNEY DISEASE: <60mL/MIN/1.73 SQ METERSKIDNEY FAILURE: <15mL/MIN/1.73 SQ METERSTHIS TEST SHOULD ONLY BE USED FOR PATIENTS 18 YEARS OF AGE AND OLDER. Performed By: #### 2 52257 ####[facility],[address] [place] [address] 06624 Glucose [Mass/Vol] 93 mg/dL Normal 74 - 106 [facility] Comment on above: Performed By: #### 2 19282 ####[facility],[address] [place] [address] 17202 Potassium [Moles/Vol] 4.0 mmol/L Normal 3.5 - 5.1 [facility] Comment on above: Performed By: #### 2 25077 ####[facility],[address] [place] [address] 66892 Sodium [Moles/Vol] 139 mmol/L Normal 136 - 145 [facility] Comment on above: Performed By: #### 2 26440 ####[facility],[address] [place] [address] Urea nitrogen [Mass/Vol] 22 mg/dL High 7 - 18 [facility] Comment on above: Performed By: #### 2 45251 ####[facility],[address] [place] [address] CBC + DIFFon 12-02-2024 Baso # 0.03 x10EE3/UL Normal 0.00 - 0.10 [facility] Comment on above: Performed By: #### 2 67432 ####[facility],[address] [place] [address] 94714 Basophils/100 WBC (Bld) 0.3 % Normal 0.0 - 2.0 [facility] Comment on above: Performed By: #### 2 53211 ####[facility],[address] [place] [address] 45336 CBC + DIFF Normal [facility] Comment on above: Result Comment: CBC- COMPLETE BLOOD COUNT Performed By: #### 2 54319 ####[facility],[address] [place] [address] 49054 EO # 0.07 x10EE3/UL Normal 0.00 - 0.50 [facility] Comment on above: Performed By: #### 2 12971 ####[facility],[address] [place] [address] 34980 Eosinophils/100 WBC (Bld) 0.7 % Normal 0.0 - 7.0 [facility] Comment on above: Performed By: #### 2 10452 ####[facility],[address] [place] [address] Erythrocyte distribution width (RBC) [Ratio] 13.9 % Normal 12.0 - 15.6 [facility] Comment on above: Performed By: #### 2 62739 ####[facility],[address] [place], [place] [phone] Hematocrit (Bld) [Volume fraction] 50.7 % High 34.0 - 46.0 [facility] Comment on above: Performed By: #### 2 30285 ####[facility],[address] [place] [address] Hemoglobin (Bld) [Mass/Vol] 17.6 g/dL High 12.0 - 16.0 [facility] Comment on above: Performed By: #### 2 49602 ####[facility],[address] [place] [address] Lymph # 0.91 x10EE3/UL Normal 0.80 - 2.80 [facility] Comment on above: Performed By: #### 2 67011 ####[facility],[address] [place], [place] [address] Lymphocytes/100 WBC (Bld) 9.5 % Low 20.0 - 45.0 [facility] Comment on above: Performed By: #### 2 95560 ####[facility],[address] [place] [address] 40310 MANUAL DIFF N/A Normal [facility] Comment on above: Performed By: #### 2 60369 ####[facility],[address] [place] [address] 09948 MCH (RBC) [Entitic mass] 30 pg Normal 27 - 33 [facility] Comment on above: Performed By: #### 2 34251 ####[facility],[address] [place] [address] MCHC 35 X10 3 Normal 32 - 36 [facility] Comment on above: Performed By: #### 2 61525 ####[facility],[address] [place], [place] [phone] MCV (RBC) [Entitic vol] 86 fL Normal 80 - 99 [facility] Comment on above: Performed By: #### 2 06780 ####[facility],[address] [place] [address] [place] # 0.51 x10EE3/UL Normal 0.20 - 1.00 [facility] Comment on above: Performed By: #### 2 42448 ####[facility],[address] [place] [address] MONOS % 5.3 % Normal 0.0 - 10.0 [facility] Comment on above: Performed By: #### 2 61862 ####[facility],[address] [place], [place] [phone] Morphology Julian (Bld) [Interp] N/A Normal [facility] Comment on above: Performed By: #### 2 03711 ####[facility],[address] [place] [address] Neut # 8.12 x10EE3/UL High 1.50 - 7.10 [facility] Comment on above: Performed By: #### 2 90901 ####[facility],[address] [place], [place] [address] Neutrophils/100 WBC (Bld) 84.2 % High 46.0 - 76.0 [facility] Comment on above: Performed By: #### 2 07641 ####[facility],[address] [place], [place] [id number] PLATELET 317 x10EE3/UL Normal 150 - 450 [facility] Comment on above: Performed By: #### 2 11152 ####[facility],[address] [place] [address] 82910 Platelet mean volume (Bld) [Entitic vol] 8.1 fL Normal 6.6 - 10.5 [facility] Comment on above: Result Comment: AUTO MATED DIFFERENTIAL Performed By: #### 2 56130 ####[facility],[address] [place] [address] 52192 RBC 5.90 x 10EE6/UL High 4.10 - 5.30 [facility] Comment on above: Performed By: #### 2 03799 ####[facility],[address] [place] [address] 43198 WBC 9.6 x 10EE3/UL Normal 4.5 - 10.8 [facility] Comment on above: Performed By: #### 2 57883 ####[facility],[address] [place] [address] 82659 CMP with eGFRon 12-02-2024 AGE 74 years Normal [facility] Comment on above: Performed By: #### 2 97737 ####[facility],[address] [place] [address] 90835 Albumin [Mass/Vol] 4.8 g/dL Normal 3.4 - 5.0 [facility] Comment on above: Performed By: #### 2 81769 ####[facility],[address] [place] [address] 74845 Albumin/Globulin [Mass ratio] 1.0 {ratio} Normal 0.9 - 1.6 [facility] Comment on above: Performed By: #### 2 74908 ####[facility],[address] [place] [address] 45308 ALK PHOS 114 U/L Normal 46 - 116 [facility] Comment on above: Performed By: #### 2 57821 ####[facility],[address] [place] [address] 50195 ALT [Catalytic activity/Vol] 25 U/L Normal 16 - 63 [facility] Comment on above: Performed By: #### 2 95819 ####[facility],[address] [place] [address] 77016 Anion gap [Moles/Vol] 18 mmol/L Normal 10 - 20 [facility] Comment on above: Performed By: #### 2 29434 ####[facility],[address] [place] [address] 79727 AST [Catalytic activity/Vol] 21 U/L Normal 13 - 39 [facility] Comment on above: Performed By: #### 2 40609 ####[facility],[address] [place] [address] 61009 B/C RATIO 13 ratio Normal 0 - 30 [facility] Comment on above: Performed By: #### 2 90917 ####[facility],[address] [place] [address] 32879 Bilirubin [Mass/Vol] 0.5 mg/dL Normal 0.2 - 1.0 [facility] Comment on above: Performed By: #### 2 57148 ####[facility],[address] [place] [address] 02336 Calcium [Mass/Vol] 10.5 mg/dL High 8.5 - 10.1 [facility] Comment on above: Performed By: #### 2 87635 ####[facility],[address] [place] [address] 53248 Chloride [Moles/Vol] 96 mmol/L Low 98 - 107 [facility] Comment on above: Performed By: #### 2 16930 ####[facility],[address] [place] [address] 31589 CMP with eGFR Normal [facility] Comment on above: Result Comment: COMP REHENSIVE METABOLIC PANEL Performed By: #### 2 23250 ####[facility],[address] [place] [address] 14864 CO2 [Moles/Vol] 29.4 mmol/L Normal 21.0 - 32.0 [facility] Comment on above: Performed By: #### 2 76519 ####[facility],[address] [place] [address] 14532 Creatinine [Mass/Vol] 1.71 mg/dL High 0.55 - 1.02 [facility] Comment on above: Performed By: #### 2 25999 ####[facility],[address] [place] [address] 47969 eGFR 29 ML/MINUTE Low 60 - 999 [facility] Comment on above: Performed By: #### 2 52811 ####[facility],[address] [place] [address] 93790 eGFR(AA) 35 ML/MINUTE Low 60 - 999 [facility] Comment on above: Result Comment: ACCO RDING TO THE NATIONAL KIDNEY DISEASE EDUCATION PROGRAM(NKDE), A NORMAL eGFRIS A VALUE GREATER THAN OR EQUAL TO 60 ML/MIN/1.73 SQ METERS.CHRONIC KIDNEY DISEASE: <60mL/MIN/1.73 SQ METERSKIDNEY FAILURE: <15mL/MIN/1.73 SQ METERSTHIS TEST SHOULD ONLY BE USED FOR PATIENTS 18 YEARS OF AGE AND OLDER. Performed By: #### 2 55222 ####[facility],[address] [place] [address] 31446 Globulin (S) [Mass/Vol] 4.7 g/dL High 1.5 - 3.8 [facility] Comment on above: Performed By: #### 2 24030 ####[facility],[address] [place] [address] 71041 Glucose [Mass/Vol] 137 mg/dL High 74 - 106 [facility] Comment on above: Performed By: #### 2 60415 ####[facility],[address] [place] [address] 82094 Potassium [Moles/Vol] 3.4 mmol/L Low 3.5 - 5.1 [facility] Comment on above: Performed By: #### 2 38225 ####[facility],[address] [place] [address] Protein [Mass/Vol] 9.5 g/dL High 6.4 - 8.2 [facility] Comment on above: Performed By: #### 2 65466 ####[facility],[address] [place] [address] Sodium [Moles/Vol] 140 mmol/L Normal 136 - 145 [facility] Comment on above: Performed By: #### 2 20068 ####[facility],[address] [place] [address] Urea nitrogen [Mass/Vol] 22 mg/dL High 7 - 18 [facility] Comment on above: Performed By: #### 2 22079 ####[facility],[address] [place] [address] ED MED ADMINISTRATION DETAIL on 12-02-2024 ED MED ADMINISTRATION DETAIL Normal [facility] ED NURSES CLINICAL NOTEon ED NURSES CLINICAL NOTE Normal [facility] ED ORDER SHEET (CPOE ONLY)on 12-02-2024 ED ORDER SHEET (CPOE ONLY) Normal [facility] ED PHYSICIAN CLINICAL REPORT on 12-02-2024 ED PHYSICIAN CLINICAL REPORT Normal [facility] ED SUPER BILLon 12-02-2024 ED SUPER BILL Normal [facility] ED VISIT SUMMARYon ED VISIT SUMMARY Normal [facility] ED VITALS FLOW SHEETon 12-02 ED VITALS FLOW SHEET Normal [facility] LIPASEon 12-02-2024 Lipase [Catalytic activity/Vol] 179.0 U/L High 15.0 - 78.0 [facility] Comment on above: Result Comment: *PLE ASE NOTE THAT RANGES FOR LIPASE HAVE CHANGED OF 04/12/23 DUE TO AN ASSAYUPDATE BY THE HAND BINDER STRIPPER.THE NEW ASSAY RANGE IS 6-250 U/L, WITH A REFERENCERANGE OF 16-77 U/L. Performed By: #### 2 90633 ####[facility],[address] [place] [address] TROPONINon 12-02-2024 HS TROPONIN <4.0 Normal 0.0 - 51.4 [facility] [facility] Comment on above: Performed By: #### 2 26962 ####[facility],[address] [place] [address] 55750 URINALYSISon 12-02-2024 Amorphous NONE Normal [facility] Comment on above: Performed By: #### 2 48384 ####[facility],[address] [place], [place] [id number] Bacteria 2+ Normal [facility] Comment on above: Performed By: #### 2 02525 ####[facility],[address] [place] [address] Bilirubin Ql (U) Negative Normal NORMAL: NEGATIVE [facility] Comment on above: Performed By: #### 2 30302 ####[facility],[address] [place] [address] Casts SEE BELOW Normal [facility] Comment on above: Performed By: #### 2 05944 ####[facility],[address] [place], [place] [id number] Clarity (U) sl.cloudy Normal NORMAL: CLEAR [facility] Comment on above: Performed By: #### 2 55739 ####[facility],[address] [place] [address] 23085 Color (U) louise Normal NORMAL: YELLOW [facility] Comment on above: Performed By: #### 2 73547 ####[facility],[address] [place] [address] 81337 Crystals LM Nom (Urine sed) NONE Normal [facility] Comment on above: Performed By: #### 2 53102 ####[facility],[address] [place] [address] 66363 Epi Cells OCC Normal [facility] Comment on above: Performed By: #### 2 92482 ####[facility],[address] [place], [place] [id number] Fine Gran >25 Normal NORMAL: NONE [facility] Comment on above: Performed By: #### 2 37422 ####[facility],[address] [place] [address] 20825 Glucose Ql (U) NORM Normal NORMAL: NORMAL [facility] Comment on above: Performed By: #### 2 23907 ####[facility],[address] [place] [address] 03659 Hemoglobin Ql (U) Negative Normal NORMAL: NEGATIVE [facility] Comment on above: Performed By: #### 2 15198 ####[facility],[address] [place], [place] [id number] Ketone Negative Normal NORMAL: NEGATIVE [facility] Comment on above: Performed By: #### 2 66418 ####[facility],[address] [place] [address] 09782 Leukocytes 25 Abnormal NORMAL: NEGATIVE [facility] Comment on above: Performed By: #### 2 30446 ####[facility],[address] [place] [address] 26346 Mucous 3+ Normal [facility] Comment on above: Performed By: #### 2 99538 ####[facility],[address] [place] [address] 28332 Nitrite Ql (U) Negative Normal NORMAL: NEGATIVE [facility] Comment on above: Performed By: #### 2 76007 ####[facility],[address] [place] [address] 32738 pH (U) 5 [pH] Normal NORMAL: 5.0-8.0 [facility] Comment on above: Performed By: #### 2 84837 ####[facility],[address] [place] [address] 06145 Protein Ql (U) 30 Abnormal NORMAL: NEGATIVE [facility] Comment on above: Performed By: #### 2 43629 ####[facility],[address] [place] [address] 47503 Rbc 0-5 Normal 0-3/hpf [facility] Comment on above: Performed By: #### 2 60487 ####[facility],[address] [place] [address] Sp Hampton 1.025 Normal NORMAL: 1.010-1.030 [facility] Comment on above: Performed By: #### 2 73464 ####[facility],[address] [place] [address] Specimen Type R Normal [facility] Comment on above: Performed By: #### 2 23698 ####[facility],[address] [place] [address] Urinalysis dipstick W Reflex Microscopic panel (U) SEE BELOW Normal [facility] Comment on above: Result Comment: MICR OSCOPIC Performed By: #### 2 57728 ####[facility],[address] [place] [address] Urobilinog NORM Normal NORMAL: NORMAL [facility] Comment on above: Performed By: #### 2 29925 ####[facility],[address] [place] [address] Wbc 6-10 Normal 0-5/hpf [facility] Comment on above: Performed By: #### 2 88042 ####[facility],[address] [place] [address] Yeast NONE Normal [facility] Comment on above: Performed By: #### 2 00955 ####[facility],[address] [place] [address] CBC + DIFFon 11-22-2024 Baso # 0.02 x10EE3/UL Normal 0.00 - 0.10 [facility] Comment on above: Performed By: #### 2 04880 ####[facility],[address] [place] [address] Basophils/100 WBC (Bld) 0.3 % Normal 0.0 - 2.0 [facility] Comment on above: Performed By: #### 2 53452 ####[facility],[address] [place] [address] CBC + DIFF Normal [facility] Comment on above: Result Comment: CBC- COMPLETE BLOOD COUNT Performed By: #### 2 40095 ####[facility],[address] [place] [address] 54285 EO # 0.16 x10EE3/UL Normal 0.00 - 0.50 [facility] Comment on above: Performed By: #### 2 97904 ####[facility],[address] [place], [place] [phone] Eosinophils/100 WBC (Bld) 2.7 % Normal 0.0 - 7.0 [facility] Comment on above: Performed By: #### 2 29878 ####[facility],[address] [place] [address] Erythrocyte distribution width (RBC) [Ratio] 13.6 % Normal 12.0 - 15.6 [facility] Comment on above: Performed By: #### 2 17702 ####[facility],[address] [place] [address] Hematocrit (Bld) [Volume fraction] 46.5 % High 34.0 - 46.0 [facility] Comment on above: Performed By: #### 2 67792 ####[facility],[address] [place], [place] [phone] Hemoglobin (Bld) [Mass/Vol] 16.1 g/dL High 12.0 - 16.0 [facility] Comment on above: Performed By: #### 2 28512 ####[facility],[address] [place], [place] [address] Lymph # 1.05 x10EE3/UL Normal 0.80 - 2.80 [facility] Comment on above: Performed By: #### 2 10302 ####[facility],[address] [place], [place] [id number] Lymphocytes/100 WBC (Bld) 17.3 % Low 20.0 - 45.0 [facility] Comment on above: Performed By: #### 2 78530 ####[facility],[address] [place] [address] MANUAL DIFF N/A Normal [facility] Comment on above: Performed By: #### 2 36629 ####[facility],[address] [place] [address] MCH (RBC) [Entitic mass] 30 pg Normal 27 - 33 [facility] Comment on above: Performed By: #### 2 20971 ####[facility],[address] [place] [address] MCHC 35 X10 3 Normal 32 - 36 [facility] Comment on above: Performed By: #### 2 64020 ####[facility],[address] [place] [address] MCV (RBC) [Entitic vol] 87 fL Normal 80 - 99 [facility] Comment on above: Performed By: #### 2 40216 ####[facility],[address] [place] [address] [place] # 0.62 x10EE3/UL Normal 0.20 - 1.00 [facility] Comment on above: Performed By: #### 2 75041 ####[facility],[address] [place] [address] MONOS % 10.1 % High 0.0 - 10.0 [facility] Comment on above: Performed By: #### 2 82933 ####[facility],[address] [place] [address] Morphology Julian (Bld) [Interp] N/A Normal [facility] Comment on above: Performed By: #### 2 99671 ####[place] [address] Neut # 4.23 x10EE3/UL Normal 1.50 - 7.10 [facility] Comment on above: Performed By: #### 2 68408 ####[facility],[address] [place] [address] 08684 Neutrophils/100 WBC (Bld) 69.6 % Normal 46.0 - 76.0 [facility] Comment on above: Performed By: #### 2 62434 ####[facility],[address] [place] [address] 90142 PLATELET 260 x10EE3/UL Normal 150 - 450 [facility] Comment on above: Performed By: #### 2 91172 ####[facility],[address] [place] [address] 99216 Platelet mean volume (Bld) [Entitic vol] 7.8 fL Normal 6.6 - 10.5 [facility] Comment on above: Result Comment: AUTO MATED DIFFERENTIAL Performed By: #### 2 85984 ####[facility],[address] [place] [address] 28949 RBC 5.37 x 10EE6/UL High 4.10 - 5.30 [facility] Comment on above: Performed By: #### 2 82860 ####[facility],[address] [place] [address] 07988 WBC 6.1 x 10EE3/UL Normal 4.5 - 10.8 [facility] Comment on above: Performed By: #### 2 48941 ####[facility],[address] [place] [address] 07986 CMP with eGFRon 11-22-2024 AGE 74 years Normal [facility] Comment on above: Performed By: #### 2 33527 ####[address] [address] Albumin [Mass/Vol] 4.4 g/dL Normal 3.4 - 5.0 [facility] Comment on above: Performed By: #### 2 11968 ####[facility],[address] [place] [address] 09613 Albumin/Globulin [Mass ratio] 1.1 {ratio} Normal 0.9 - 1.6 [facility] Comment on above: Performed By: #### 2 82978 ####[facility],[address] [place] [address] 06110 ALK PHOS 103 U/L Normal 46 - 116 [facility] Comment on above: Performed By: #### 2 55728 ####[facility],[address] [place] [address] 96662 ALT [Catalytic activity/Vol] 26 U/L Normal 16 - 63 [facility] Comment on above: Performed By: #### 2 65701 ####[facility],[address] [place] [address] 15533 Anion gap [Moles/Vol] 17 mmol/L Normal 10 - 20 [facility] Comment on above: Performed By: #### 2 25619 ####[facility],[address] [place] [address] 39681 AST [Catalytic activity/Vol] 18 U/L Normal 13 - 39 [facility] Comment on above: Performed By: #### 2 67879 ####[facility],[address] [place] [address] 38918 B/C RATIO 11 ratio Normal 0 - 30 [facility] Comment on above: Performed By: #### 2 88871 ####[facility],[address] [place] [address] 52313 Bilirubin [Mass/Vol] 0.6 mg/dL Normal 0.2 - 1.0 [facility] Comment on above: Performed By: #### 2 78527 ####[facility],[address] [place] [address] 65814 Calcium [Mass/Vol] 9.9 mg/dL Normal 8.5 - 10.1 [facility] Comment on above: Performed By: #### 2 75540 ####[facility],[address] [place] [address] 38413 Chloride [Moles/Vol] 101 mmol/L Normal 98 - 107 [facility] Comment on above: Performed By: #### 2 93914 ####[facility],[address] [place] [address] 62189 CMP with eGFR Normal [facility] Comment on above: Result Comment: COMP REHENSIVE METABOLIC PANEL Performed By: #### 2 26440 ####[facility],[address] [place] [address] 26184 CO2 [Moles/Vol] 29.7 mmol/L Normal 21.0 - 32.0 [facility] Comment on above: Performed By: #### 2 83693 ####[facility],[address] [place] [address] 46556 Creatinine [Mass/Vol] 1.49 mg/dL High 0.55 - 1.02 [facility] Comment on above: Performed By: #### 2 85035 ####[facility],[address] [place] [address] 39504 eGFR 34 ML/MINUTE Low 60 - 999 [facility] Comment on above: Performed By: #### 2 39870 ####[facility],[address] [place] [address] 42149 eGFR(AA) 42 ML/MINUTE Low 60 - 999 [facility] Comment on above: Result Comment: ACCO RDING TO THE NATIONAL KIDNEY DISEASE EDUCATION PROGRAM(NKDE), A NORMAL eGFRIS A VALUE GREATER THAN OR EQUAL TO 60 ML/MIN/1.73 SQ METERS.CHRONIC KIDNEY DISEASE: <60mL/MIN/1.73 SQ METERSKIDNEY FAILURE: <15mL/MIN/1.73 SQ METERSTHIS TEST SHOULD ONLY BE USED FOR PATIENTS 18 YEARS OF AGE AND OLDER. Performed By: #### 2 19654 ####[facility],[address] [place] [address] 07339 Globulin (S) [Mass/Vol] 3.9 g/dL High 1.5 - 3.8 [facility] Comment on above: Performed By: #### 2 48739 ####[facility],[address] [place] [address] 77254 Glucose [Mass/Vol] 119 mg/dL High 74 - 106 [facility] Comment on above: Performed By: #### 2 79818 ####[facility],[address] [place] [address] 52203 Potassium [Moles/Vol] 3.8 mmol/L Normal 3.5 - 5.1 [facility] Comment on above: Performed By: #### 2 92096 ####[facility],[address] [place] [address] 93069 Protein [Mass/Vol] 8.3 g/dL High 6.4 - 8.2 [facility] Comment on above: Performed By: #### 2 40646 ####[facility],[address] [place] [address] 99373 Sodium [Moles/Vol] 144 mmol/L Normal 136 - 145 [facility] Comment on above: Performed By: #### 2 79259 ####[facility],[address] [place] [address] 37506 Urea nitrogen [Mass/Vol] 16 mg/dL Normal 7 - 18 [facility] Comment on above: Performed By: #### 2 96827 ####[facility],[address] [place] [address] 84578 ED MED ADMINISTRATION DETAIL on 11-22-2024 ED MED ADMINISTRATION DETAIL Normal [facility] ED NURSES CLINICAL NOTEon ED NURSES CLINICAL NOTE Normal [facility] ED ORDER SHEET (CPOE ONLY)on 11-22-2024 ED ORDER SHEET (CPOE ONLY) Normal [facility] ED PHYSICIAN CLINICAL REPORT on 11-22-2024 ED PHYSICIAN CLINICAL REPORT Normal [facility] ED SUPER BILLon 11-22-2024 ED SUPER BILL Normal [facility] ED VISIT SUMMARYon ED VISIT SUMMARY Normal [facility] ED VITALS FLOW SHEETon 11-22 ED VITALS FLOW SHEET Normal [facility] LIPASEon 11-22-2024 Lipase [Catalytic activity/Vol] 64.0 U/L Normal 15.0 - 78.0 [facility] Comment on above: Result Comment: *PLE ASE NOTE THAT RANGES FOR LIPASE HAVE CHANGED OF 04/12/23 DUE TO AN ASSAYUPDATE BY THE HAND BINDER STRIPPER.THE NEW ASSAY RANGE IS 6-250 U/L, WITH A REFERENCERANGE OF 16-77 U/L. Performed By: #### 2 26948 ####[facility],[address] [place] [address] URINALYSISon 11-22-2024 Amorphous NONE Normal [facility] Comment on above: Performed By: #### 2 31586 ####[facility],[address] [place], [place] [id number] Bacteria TRACE Normal [facility] Comment on above: Performed By: #### 2 80051 ####[facility],[address] [place] [address] 93326 Bilirubin Ql (U) Negative Normal NORMAL: NEGATIVE [facility] Comment on above: Performed By: #### 2 34958 ####[facility],[address] [place] [address] 51806 Casts NONE Normal [facility] Comment on above: Performed By: #### 2 52616 ####[facility],[address] [place] [address] 04340 Clarity (U) clear Normal NORMAL: CLEAR [facility] Comment on above: Performed By: #### 2 38092 ####[facility],[address] [place] [address] 58154 Color (U) brown Normal NORMAL: YELLOW [facility] Comment on above: Performed By: #### 2 19642 ####[facility],[address] [place] [address] 76235 Crystals LM Nom (Urine sed) NONE Normal [facility] Comment on above: Performed By: #### 2 31233 ####[facility],[address] [place] [address] 52816 Epi Cells OCC Normal [facility] Comment on above: Performed By: #### 2 53138 ####[facility],[address] [place] [address] 63770 Glucose Ql (U) NORM Normal NORMAL: NORMAL [facility] Comment on above: Performed By: #### 2 52797 ####[facility],[address] [place] [address] 98410 Hemoglobin Ql (U) Negative Normal NORMAL: NEGATIVE [facility] Comment on above: Performed By: #### 2 72728 ####[facility],[address] [place] [address] 71125 Ketone 50 Abnormal NORMAL: NEGATIVE [facility] Comment on above: Performed By: #### 2 96276 ####[facility],[address] [place] [address] 35215 Leukocytes 25 Abnormal NORMAL: NEGATIVE [facility] Comment on above: Performed By: #### 2 47108 ####[facility],[address] [place] [address] 95717 Mucous TRACE Normal [facility] Comment on above: Performed By: #### 2 59450 ####[facility],[address] [place] [address] 42696 Nitrite Ql (U) Negative Normal NORMAL: NEGATIVE [facility] Comment on above: Performed By: #### 2 04347 ####[facility],[address] [place] [address] 28982 pH (U) 6.5 [pH] Normal NORMAL: 5.0-8.0 [facility] Comment on above: Performed By: #### 2 06809 ####[facility],[address] [place] [address] 34325 Protein Ql (U) 100 Abnormal NORMAL: NEGATIVE [facility] Comment on above: Performed By: #### 2 22752 ####[facility],[address] [place] [address] 03101 Rbc NONE Normal 0-3/hpf [facility] Comment on above: Performed By: #### 2 18221 ####[facility],[address] [place] [address] Sp Hampton 1.015 Normal NORMAL: 1.010-1.030 [facility] Comment on above: Performed By: #### 2 56621 ####[facility],[address] [place] [address] Specimen Type R Normal [facility] Comment on above: Performed By: #### 2 84271 ####[facility],[address] [place] [address] Urinalysis dipstick W Reflex Microscopic panel (U) SEE BELOW Normal [facility] Comment on above: Result Comment: MICR OSCOPIC Performed By: #### 2 95109 ####[facility],[address] [place] [address] Urobilinog 1 Abnormal NORMAL: NORMAL [facility] Comment on above: Performed By: #### 2 78776 ####[facility],[address] [place], [place] [id number] Wbc 1-5 Normal 0-5/hpf [facility] Comment on above: Performed By: #### 2 28280 ####[facility],[address] [place], [place] [address] Yeast NONE Normal [facility] Comment on above: Performed By: #### 2 64030 ####[facility],[address] [place], [place] [id number] CBC + DIFFon 11-19-2024 Baso # 0.05 x10EE3/UL Normal 0.00 - 0.10 [facility] Comment on above: Performed By: #### 2 97918 ####[facility],[address] [place], [place] [address] Basophils/100 WBC (Bld) 0.5 % Normal 0.0 - 2.0 [facility] Comment on above: Performed By: #### 2 10236 ####[facility],[address] [place] [address] CBC + DIFF Normal [facility] Comment on above: Result Comment: CBC- COMPLETE BLOOD COUNT Performed By: #### 2 12063 ####[facility],[address] [place] [address] EO # 0.10 x10EE3/UL Normal 0.00 - 0.50 [facility] Comment on above: Performed By: #### 2 21890 ####[facility],[address] [place] [address] Eosinophils/100 WBC (Bld) 1.0 % Normal 0.0 - 7.0 [facility] Comment on above: Performed By: #### 2 48038 ####[facility],[address] [place] [address] Erythrocyte distribution width (RBC) [Ratio] 13.6 % Normal 12.0 - 15.6 [facility] Comment on above: Performed By: #### 2 26942 ####[facility],[address] [place] [address] Hematocrit (Bld) [Volume fraction] 45.9 % Normal 34.0 - 46.0 [facility] Comment on above: Performed By: #### 2 54118 ####[facility],[address] [place] [address] Hemoglobin (Bld) [Mass/Vol] 15.7 g/dL Normal 12.0 - 16.0 [facility] Comment on above: Performed By: #### 2 57780 ####[facility],[address] [place], [place] [id number] Lymph # 1.21 x10EE3/UL Normal 0.80 - 2.80 [facility] Comment on above: Performed By: #### 2 33243 ####[facility],[address] [place] [address] 04400 Lymphocytes/100 WBC (Bld) 12.5 % Low 20.0 - 45.0 [facility] Comment on above: Performed By: #### 2 97230 ####[facility],[address] [place] [address] 46139 MANUAL DIFF N/A Normal [facility] Comment on above: Performed By: #### 2 46980 ####[facility],[address] [place] [address] MCH (RBC) [Entitic mass] 29 pg Normal 27 - 33 [facility] Comment on above: Performed By: #### 2 26911 ####[facility],[address] [place] [address] MCHC 34 X10 3 Normal 32 - 36 [facility] Comment on above: Performed By: #### 2 62998 ####[facility],[address] [place], [place] [address] MCV (RBC) [Entitic vol] 85 fL Normal 80 - 99 [facility] Comment on above: Performed By: #### 2 30887 ####[facility],[address] [place] [address] [place] # 0.57 x10EE3/UL Normal 0.20 - 1.00 [facility] Comment on above: Performed By: #### 2 63089 ####[facility],[address] [place] [address] 60482 MONOS % 5.9 % Normal 0.0 - 10.0 [facility] Comment on above: Performed By: #### 2 44090 ####[facility],[address] [place] [address] 75177 Morphology Julian (Bld) [Interp] N/A Normal [facility] Comment on above: Performed By: #### 2 03133 ####[facility],[address] [place] [address] 64082 Neut # 7.69 x10EE3/UL High 1.50 - 7.10 [facility] Comment on above: Performed By: #### 2 68972 ####[facility],[address] [place] [address] 53659 Neutrophils/100 WBC (Bld) 80.1 % High 46.0 - 76.0 [facility] Comment on above: Performed By: #### 2 49345 ####[facility],[address] [place] [address] 79722 PLATELET 234 x10EE3/UL Normal 150 - 450 [facility] Comment on above: Performed By: #### 2 15306 ####[facility],[address] [place] [address] 32782 Platelet mean volume (Bld) [Entitic vol] 7.4 fL Normal 6.6 - 10.5 [facility] Comment on above: Result Comment: AUTO MATED DIFFERENTIAL Performed By: #### 2 96605 ####[facility],[address] [place] [address] 04654 RBC 5.37 x 10EE6/UL High 4.10 - 5.30 [facility] Comment on above: Performed By: #### 2 29795 ####[facility],[address] [place] [address] 76738 WBC 9.6 x 10EE3/UL Normal 4.5 - 10.8 [facility] Comment on above: Performed By: #### 2 06005 ####[facility],[address] [place] [address] 81372 CMP with eGFRon 11-19-2024 AGE 74 years Normal [facility] Comment on above: Performed By: #### 2 30473 ####[facility],[address] [place] [address] 47221 Albumin [Mass/Vol] 4.2 g/dL Normal 3.4 - 5.0 [facility] Comment on above: Performed By: #### 2 49368 ####[facility],[address] [place] [address] 28462 Albumin/Globulin [Mass ratio] 1.0 {ratio} Normal 0.9 - 1.6 [facility] Comment on above: Performed By: #### 2 37157 ####[facility],[address] [place] [address] 15420 ALK PHOS 100 U/L Normal 46 - 116 [facility] Comment on above: Performed By: #### 2 38388 ####[facility],[address] [place] [address] 26347 ALT [Catalytic activity/Vol] 26 U/L Normal 16 - 63 [facility] Comment on above: Performed By: #### 2 77243 ####[facility],[address] [place] [address] 63346 Anion gap [Moles/Vol] 13 mmol/L Normal 10 - 20 [facility] Comment on above: Performed By: #### 2 74930 ####[facility],[address] [place] [address] 96645 AST [Catalytic activity/Vol] 17 U/L Normal 13 - 39 [facility] Comment on above: Performed By: #### 2 05117 ####[facility],[address] [place] [address] 54727 B/C RATIO 11 ratio Normal 0 - 30 [facility] Comment on above: Performed By: #### 2 38304 ####[facility],[address] [place] [address] 33999 Bilirubin [Mass/Vol] 0.6 mg/dL Normal 0.2 - 1.0 [facility] Comment on above: Performed By: #### 2 29625 ####[facility],[address] [place] [address] 53210 Calcium [Mass/Vol] 9.9 mg/dL Normal 8.5 - 10.1 [facility] Comment on above: Performed By: #### 2 10632 ####[facility],[address] [place] [address] 39904 Chloride [Moles/Vol] 100 mmol/L Normal 98 - 107 [facility] Comment on above: Performed By: #### 2 46787 ####[facility],[address] [place] [address] 89373 CMP with eGFR Normal [facility] Comment on above: Result Comment: COMP REHENSIVE METABOLIC PANEL Performed By: #### 2 60009 ####[facility],[address] [place] [address] 10075 CO2 [Moles/Vol] 29.1 mmol/L Normal 21.0 - 32.0 [facility] Comment on above: Performed By: #### 2 21239 ####[facility],[address] [place] [address] 56981 Creatinine [Mass/Vol] 1.32 mg/dL High 0.55 - 1.02 [facility] Comment on above: Performed By: #### 2 55287 ####[facility] System,[address] [place] [address] 43508 eGFR 39 ML/MINUTE Low 60 - 999 [facility] Comment on above: Performed By: #### 2 66841 ####[facility],[address] [place] [address] 07243 eGFR(AA) 48 ML/MINUTE Low 60 - 999 [facility] Comment on above: Result Comment: ACCO RDING TO THE NATIONAL KIDNEY DISEASE EDUCATION PROGRAM(NKDE), A NORMAL eGFRIS A VALUE GREATER THAN OR EQUAL TO 60 ML/MIN/1.73 SQ METERS.CHRONIC KIDNEY DISEASE: <60mL/MIN/1.73 SQ METERSKIDNEY FAILURE: <15mL/MIN/1.73 SQ METERSTHIS TEST SHOULD ONLY BE USED FOR PATIENTS 18 YEARS OF AGE AND OLDER. Performed By: #### 2 04584 ####[facility],[address] [place] [address] 00740 Globulin (S) [Mass/Vol] 4.1 g/dL High 1.5 - 3.8 [facility] Comment on above: Performed By: #### 2 61306 ####[facility],[address] [place] [address] 70669 Glucose [Mass/Vol] 142 mg/dL High 74 - 106 [facility] Comment on above: Performed By: #### 2 86519 ####[facility],[address] [place] [address] 96839 Potassium [Moles/Vol] 3.4 mmol/L Low 3.5 - 5.1 [facility] Comment on above: Performed By: #### 2 15380 ####[facility],[address] [place] [address] 04594 Protein [Mass/Vol] 8.3 g/dL High 6.4 - 8.2 [facility] Comment on above: Performed By: #### 2 04945 ####[facility],[address] [place] [address] 95919 Sodium [Moles/Vol] 139 mmol/L Normal 136 - 145 [facility] Comment on above: Performed By: #### 2 17770 ####[facility],[address] [place] [address] 41880 Urea nitrogen [Mass/Vol] 15 mg/dL Normal 7 - 18 [facility] Comment on above: Performed By: #### 2 74546 ####[facility],[address] [place] [address] 52345 ED MED ADMINISTRATION DETAIL on 11-19-2024 ED MED ADMINISTRATION DETAIL Normal [facility] ED NURSES CLINICAL NOTEon ED NURSES CLINICAL NOTE Normal [facility] ED ORDER SHEET (CPOE ONLY)on 11-19-2024 ED ORDER SHEET (CPOE ONLY) Normal [facility] ED PHYSICIAN CLINICAL REPORT on 11-19-2024 ED PHYSICIAN CLINICAL REPORT Normal [facility] ED SUPER BILLon 11-19-2024 ED SUPER BILL Normal [facility] ED VISIT SUMMARYon ED VISIT SUMMARY Normal [facility] ED VITALS FLOW SHEETon 11-19 ED VITALS FLOW SHEET Normal [facility] LIPASEon 11-19-2024 Lipase [Catalytic activity/Vol] 52.0 U/L Normal 15.0 - 78.0 [facility] Comment on above: Result Comment: *PLE ASE NOTE THAT RANGES FOR LIPASE HAVE CHANGED OF 04/12/23 DUE TO AN ASSAYUPDATE BY THE HAND BINDER STRIPPER.THE NEW ASSAY RANGE IS 6-250 U/L, WITH A REFERENCERANGE OF 16-77 U/L. Performed By: #### 2 04466 ####[facility],[address] [place] [address] URINALYSISon 11-19-2024 Bilirubin Ql (U) Negative Normal NORMAL: NEGATIVE [facility] Comment on above: Performed By: #### 2 84515 ####[facility],[address] [place] [address] Clarity (U) clear Normal NORMAL: CLEAR [facility] Comment on above: Performed By: #### 2 91826 ####[facility],[address] [place] [address] 40750 Color (U) louise Normal NORMAL: YELLOW [facility] Comment on above: Performed By: #### 2 50895 ####[facility],[address] [place] [address] 45000 Glucose Ql (U) NORM Normal NORMAL: NORMAL [facility] Comment on above: Performed By: #### 2 73114 ####[facility],[address] [place] [address] 91426 Hemoglobin Ql (U) Negative Normal NORMAL: NEGATIVE [facility] Comment on above: Performed By: #### 2 72587 ####[facility],[address] [place] [address] 84863 Ketone 15 Abnormal NORMAL: NEGATIVE [facility] Comment on above: Performed By: #### 2 18025 ####[facility],[address] [place] [address] Leukocytes Negative Normal NORMAL: NEGATIVE [facility] Comment on above: Performed By: #### 2 33604 ####[facility],[address] [place], [place] [id number] Nitrite Ql (U) Negative Normal NORMAL: NEGATIVE [facility] Comment on above: Performed By: #### 2 61791 ####[facility],[address] [place] [address] pH (U) 6.5 [pH] Normal NORMAL: 5.0-8.0 [facility] Comment on above: Performed By: #### 2 29446 ####[facility],[address] [place] [address] Protein Ql (U) 15 Abnormal NORMAL: NEGATIVE [facility] Comment on above: Performed By: #### 2 91218 ####[facility],[address] [place] [address] Sp [place] 1.015 Normal NORMAL: 1.010-1.030 [facility] Comment on above: Performed By: #### 2 53439 ####[facility],[address] [place] [address] Specimen Type R Normal [facility] Comment on above: Performed By: #### 2 02404 ####[facility],[address] [place] [address] Urinalysis dipstick W Reflex Microscopic panel (U) NOT INDICATED Normal [facility] Comment on above: Performed By: #### 2 73303 ####[facility],[address] [place] [address] Urobilinog NORM Normal NORMAL: NORMAL [facility] Comment on above: Performed By: #### 2 98841 ####[facility],[address] [place] [address] CBC + DIFFon 07-17-2025 Baso # 0.03 x10EE3/UL Normal 0.00 - 0.10 [facility] Comment on above: Performed By: #### 2 28924 ####[facility],[address] [place] [address] 07496 Basophils/100 WBC (Bld) 0.5 % Normal 0.0 - 2.0 [facility] Comment on above: Performed By: #### 2 90239 ####[facility],[address] [place] [address] 35870 CBC + DIFF Normal [facility] Comment on above: Result Comment: CBC- COMPLETE BLOOD COUNT Performed By: #### 2 84858 ####[facility],[address] [place] [address] 79266 EO # 0.13 x10EE3/UL Normal 0.00 - 0.50 [facility] Comment on above: Performed By: #### 2 05000 ####[facility],[address] [place] [address] 55019 Eosinophils/100 WBC (Bld) 1.7 % Normal 0.0 - 7.0 [facility] Comment on above: Performed By: #### 2 29253 ####[facility],[address] [place] [address] 17318 Erythrocyte distribution width (RBC) [Ratio] 13.5 % Normal 12.0 - 15.6 [facility] Comment on above: Performed By: #### 2 21211 ####[facility],[address] [place] [address] 37509 Hematocrit (Bld) [Volume fraction] 44.2 % Normal 34.0 - 46.0 [facility] Comment on above: Performed By: #### 2 70131 ####[facility],[address] [place] [address] 96534 Hemoglobin (Bld) [Mass/Vol] 15.6 g/dL Normal 12.0 - 16.0 [facility] Comment on above: Performed By: #### 2 86880 ####[facility],[address] [place] [address] 24408 Lymph # 1.02 x10EE3/UL Normal 0.80 - 2.80 [facility] Comment on above: Performed By: #### 2 14425 ####[facility],[address] [place], [place] [address] Lymphocytes/100 WBC (Bld) 13.2 % Low 20.0 - 45.0 [facility] Comment on above: Performed By: #### 2 69494 ####[facility],[address] [place], [place] [address] MANUAL DIFF N/A Normal [facility] Comment on above: Performed By: #### 2 88679 ####[facility],[address] [place] [address] MCH (RBC) [Entitic mass] 31 pg Normal 27 - 33 [facility] Comment on above: Performed By: #### 2 10837 ####[facility],[address] [place] [address] 37271 MCHC 35 X10 3 Normal 32 - 36 [facility] Comment on above: Performed By: #### 2 49839 ####[facility],[address] [place] [address] 53951 MCV (RBC) [Entitic vol] 87 fL Normal 80 - 99 [facility] Comment on above: Performed By: #### 2 87280 ####[facility],[address] [place] [address] 40431 [place] # 0.62 x10EE3/UL Normal 0.20 - 1.00 [facility] Comment on above: Performed By: #### 2 35551 ####[facility],[address] [place] [address] 66963 MONOS % 8.1 % Normal 0.0 - 10.0 [facility] Comment on above: Performed By: #### 2 46389 ####[facility],[address] [place] [address] 15321 Morphology Julian (Bld) [Interp] N/A Normal [facility] Comment on above: Performed By: #### 2 96615 ####[facility],[address] [place] [address] 35941 Neut # 5.94 x10EE3/UL Normal 1.50 - 7.10 [facility] Comment on above: Performed By: #### 2 54910 ####[facility],[address] [place] [address] 48507 Neutrophils/100 WBC (Bld) 76.6 % High 46.0 - 76.0 [facility] Comment on above: Performed By: #### 2 81521 ####[facility],[address] [place] [address] 07246 PLATELET 257 x10EE3/UL Normal 150 - 450 [facility] Comment on above: Performed By: #### 2 80081 ####[facility],[address] [place] [address] 87245 Platelet mean volume (Bld) [Entitic vol] 8.2 fL Normal 6.6 - 10.5 [facility] Comment on above: Result Comment: AUTO MATED DIFFERENTIAL Performed By: #### 2 65328 ####[facility],[address] [place] [address] 03575 RBC 5.10 x 10EE6/UL Normal 4.10 - 5.30 [facility] Comment on above: Performed By: #### 2 01509 ####[facility],[address] [place] [address] 79435 WBC 7.8 x 10EE3/UL Normal 4.5 - 10.8 [facility] Comment on above: Performed By: #### 2 17525 ####[facility],[address] [place] [address] 00922 CMP with eGFRon 10-29-2024 AGE 74 years Normal [facility] Comment on above: Performed By: #### 2 16548 ####[facility],[address] [place] [address] 76831 Albumin [Mass/Vol] 4.2 g/dL Normal 3.4 - 5.0 [facility] Comment on above: Performed By: #### 2 85895 ####[facility],[address] [place] [address] 52851 Albumin/Globulin [Mass ratio] 1.0 {ratio} Normal 0.9 - 1.6 [facility] Comment on above: Performed By: #### 2 02923 ####[facility],[address] [place] [address] 50636 ALK PHOS 102 U/L Normal 46 - 116 [facility] Comment on above: Performed By: #### 2 62881 ####[facility],[address] [place] [address] 60833 ALT [Catalytic activity/Vol] 31 U/L Normal 16 - 63 [facility] Comment on above: Performed By: #### 2 33756 ####[facility],[address] [place] [address] 59899 Anion gap [Moles/Vol] 14 mmol/L Normal 10 - 20 [facility] Comment on above: Performed By: #### 2 39970 ####[facility],[address] [place] [address] 42677 AST [Catalytic activity/Vol] 32 U/L Normal 13 - 39 [facility] Comment on above: Performed By: #### 2 39460 ####[facility],[address] [place] [address] 91025 B/C RATIO 12 ratio Normal 0 - 30 [facility] Comment on above: Performed By: #### 2 63533 ####[facility],[address] [place] [address] 66444 Bilirubin [Mass/Vol] 0.7 mg/dL Normal 0.2 - 1.0 [facility] Comment on above: Performed By: #### 2 68994 ####[facility],[address] [place] [address] 86226 Calcium [Mass/Vol] 9.6 mg/dL Normal 8.5 - 10.1 [facility] Comment on above: Performed By: #### 2 74800 ####[facility],[address] [place] [address] 96327 Chloride [Moles/Vol] 101 mmol/L Normal 98 - 107 [facility] Comment on above: Performed By: #### 2 64320 ####[facility],[address] [place] [address] 78128 CMP with eGFR Normal [facility] Comment on above: Result Comment: COMP REHENSIVE METABOLIC PANEL Performed By: #### 2 63752 ####[facility],[address] [place] [address] 72168 CO2 [Moles/Vol] 28.4 mmol/L Normal 21.0 - 32.0 [facility] Comment on above: Performed By: #### 2 18012 ####[facility],[address] [place] [address] 35941 Creatinine [Mass/Vol] 1.20 mg/dL High 0.55 - 1.02 [facility] Comment on above: Performed By: #### 2 72307 ####[facility],[address] [place] [address] 71093 eGFR 44 ML/MINUTE Low 60 - 999 [facility] Comment on above: Performed By: #### 2 86887 ####[facility],[address] [place] [address] 61376 eGFR(AA) 53 ML/MINUTE Low 60 - 999 [facility] Comment on above: Result Comment: ACCO RDING TO THE NATIONAL KIDNEY DISEASE EDUCATION PROGRAM(NKDE), A NORMAL eGFRIS A VALUE GREATER THAN OR EQUAL TO 60 ML/MIN/1.73 SQ METERS.CHRONIC KIDNEY DISEASE: <60mL/MIN/1.73 SQ METERSKIDNEY FAILURE: <15mL/MIN/1.73 SQ METERSTHIS TEST SHOULD ONLY BE USED FOR PATIENTS 18 YEARS OF AGE AND OLDER. Performed By: #### 2 42623 ####[facility],[address] [place] [address] 18553 Globulin (S) [Mass/Vol] 4.4 g/dL High 1.5 - 3.8 [facility] Comment on above: Performed By: #### 2 74889 ####[facility],[address] [place] [address] 34901 Glucose [Mass/Vol] 125 mg/dL High 74 - 106 [facility] Comment on above: Performed By: #### 2 78795 ####[facility],[address] [place] [address] 95210 Potassium [Moles/Vol] 4.5 mmol/L Normal 3.5 - 5.1 [facility] Comment on above: Performed By: #### 2 50419 ####[facility],[address] [place] [address] 71349 Protein [Mass/Vol] 8.6 g/dL High 6.4 - 8.2 [facility] Comment on above: Performed By: #### 2 42910 ####[facility],[address] [place] [address] 54675 Sodium [Moles/Vol] 139 mmol/L Normal 136 - 145 [facility] Comment on above: Performed By: #### 2 41973 ####[facility],[address] [place] [address] 00938 Urea nitrogen [Mass/Vol] 14 mg/dL Normal 7 - 18 [facility] Comment on above: Performed By: #### 2 48909 ####[facility],[address] [place] [address] 54024 ED MED ADMINISTRATION DETAIL on 10-29-2024 ED MED ADMINISTRATION DETAIL Normal [facility] ED NURSES CLINICAL NOTEon ED NURSES CLINICAL NOTE Normal [facility] ED ORDER SHEET (CPOE ONLY)on 10-29-2024 ED ORDER SHEET (CPOE ONLY) Normal [facility] ED PHYSICIAN CLINICAL REPORT on 10-29-2024 ED PHYSICIAN CLINICAL REPORT Normal [facility] ED SUPER BILLon 10-29-2024 ED SUPER BILL Normal [facility] ED VISIT SUMMARYon ED VISIT SUMMARY Normal [facility] ED VITALS FLOW SHEETon 10-29 ED VITALS FLOW SHEET Normal [facility] LACTATEon 10-29-2024 Lactate [Moles/Vol] 1.0 mmol/L Normal 0.4 - 2.0 [facility] Comment on above: Performed By: #### 2 72447 ####[facility],[address] [place] [address] 77222 CBC + DIFFon 10-26-2024 Baso # 0.03 x10EE3/UL Normal 0.00 - 0.10 [facility] Comment on above: Performed By: #### 2 30741 ####[facility],[address] [place] [address] 72808 Basophils/100 WBC (Bld) 0.3 % Normal 0.0 - 2.0 [facility] Comment on above: Performed By: #### 2 06535 ####[facility],[address] [place] [address] 66619 CBC + DIFF Normal [facility] Comment on above: Result Comment: CBC- COMPLETE BLOOD COUNT Performed By: #### 2 73944 ####[facility],[address] [place] [address] 28563 EO # 0.06 x10EE3/UL Normal 0.00 - 0.50 [facility] Comment on above: Performed By: #### 2 66574 ####[facility],[address] [place] [address] 34319 Eosinophils/100 WBC (Bld) 0.7 % Normal 0.0 - 7.0 [facility] Comment on above: Performed By: #### 2 83862 ####[facility],[address] [place] [address] Erythrocyte distribution width (RBC) [Ratio] 13.6 % Normal 12.0 - 15.6 [facility] Comment on above: Performed By: #### 2 20229 ####[facility],[address] [place] [address] Hematocrit (Bld) [Volume fraction] 47.6 % High 34.0 - 46.0 [facility] Comment on above: Performed By: #### 2 00956 ####[facility],[address] [place] [address] Hemoglobin (Bld) [Mass/Vol] 16.4 g/dL High 12.0 - 16.0 [facility] Comment on above: Performed By: #### 2 80478 ####[facility],[address] [place] [address] Lymph # 0.92 x10EE3/UL Normal 0.80 - 2.80 [facility] Comment on above: Performed By: #### 2 95305 ####[facility],[address] [place] [address] Lymphocytes/100 WBC (Bld) 10.8 % Low 20.0 - 45.0 [facility] Comment on above: Performed By: #### 2 24792 ####[facility],[address] [place], [place] [address] MANUAL DIFF N/A Normal [facility] Comment on above: Performed By: #### 2 26633 ####[place] [id number] MCH (RBC) [Entitic mass] 29 pg Normal 27 - 33 [facility] Comment on above: Performed By: #### 2 75620 ####[place] [address] MCHC 34 X10 3 Normal 32 - 36 [facility] Comment on above: Performed By: #### 2 18151 ####[facility],[address] [place] [address] 84643 MCV (RBC) [Entitic vol] 85 fL Normal 80 - 99 [facility] Comment on above: Performed By: #### 2 12421 ####[facility],[address] [place] [address] [place] # 0.62 x10EE3/UL Normal 0.20 - 1.00 [facility] Comment on above: Performed By: #### 2 64992 ####[facility],[address] [place] [address] MONOS % 7.2 % Normal 0.0 - 10.0 [facility] Comment on above: Performed By: #### 2 86076 ####[facility],[address] [place], [place] [address] Morphology Julian (Bld) [Interp] N/A Normal [facility] Comment on above: Performed By: #### 2 64981 ####[facility],[address] [place] [address] Neut # 6.91 x10EE3/UL Normal 1.50 - 7.10 [facility] Comment on above: Performed By: #### 2 27905 ####[facility],[address] [place], [place] [address] Neutrophils/100 WBC (Bld) 81.1 % High 46.0 - 76.0 [facility] Comment on above: Performed By: #### 2 20894 ####[facility],[address] [place] [address] 18912 PLATELET 265 x10EE3/UL Normal 150 - 450 [facility] Comment on above: Performed By: #### 2 44733 ####[facility],[address] [place] [address] 49897 Platelet mean volume (Bld) [Entitic vol] 7.5 fL Normal 6.6 - 10.5 [facility] Comment on above: Result Comment: AUTO MATED DIFFERENTIAL Performed By: #### 2 93829 ####[facility],[address] [place] [address] 99187 RBC 5.61 x 10EE6/UL High 4.10 - 5.30 [facility] Comment on above: Performed By: #### 2 95713 ####[facility],[address] [place] [address] 81711 WBC 8.5 x 10EE3/UL Normal 4.5 - 10.8 [facility] Comment on above: Performed By: #### 2 05287 ####[facility],[address] [place] [address] 41365 CMP with eGFRon 10-26-2024 AGE 74 years Normal [facility] Comment on above: Performed By: #### 2 87218 ####[facility],[address] [place] [address] 63167 Albumin [Mass/Vol] 4.5 g/dL Normal 3.4 - 5.0 [facility] Comment on above: Performed By: #### 2 55331 ####[facility],[address] [place] [address] 32959 Albumin/Globulin [Mass ratio] 1.2 {ratio} Normal 0.9 - 1.6 [facility] Comment on above: Performed By: #### 2 79246 ####[facility],[address] [place] [address] 43748 ALK PHOS 110 U/L Normal 46 - 116 [facility] Comment on above: Performed By: #### 2 26613 ####[facility],[address] [place] [address] 80852 ALT [Catalytic activity/Vol] 30 U/L Normal 16 - 63 [facility] Comment on above: Performed By: #### 2 60629 ####[facility],[address] [place] [address] 33340 Anion gap [Moles/Vol] 18 mmol/L Normal 10 - 20 [facility] Comment on above: Performed By: #### 2 13872 ####[facility],[address] [place] [address] 48502 AST [Catalytic activity/Vol] 21 U/L Normal 13 - 39 [facility] Comment on above: Performed By: #### 2 03388 ####[facility],[address] [place] [address] 37749 B/C RATIO 13 ratio Normal 0 - 30 [facility] Comment on above: Performed By: #### 2 09063 ####[facility],[address] [place] [address] 22775 Bilirubin [Mass/Vol] 0.4 mg/dL Normal 0.2 - 1.0 [facility] Comment on above: Performed By: #### 2 77682 ####[facility],[address] [place] [address] 16551 Calcium [Mass/Vol] 9.9 mg/dL Normal 8.5 - 10.1 [facility] Comment on above: Performed By: #### 2 50175 ####[facility],[address] [place] [address] 37406 Chloride [Moles/Vol] 99 mmol/L Normal 98 - 107 [facility] Comment on above: Performed By: #### 2 43198 ####[facility],[address] [place] [address] 21015 CMP with eGFR Normal [facility] Comment on above: Result Comment: COMP REHENSIVE METABOLIC PANEL Performed By: #### 2 00763 ####[facility],[address] [place] [address] 89516 CO2 [Moles/Vol] 26.3 mmol/L Normal 21.0 - 32.0 [facility] Comment on above: Performed By: #### 2 78089 ####[facility],[address] [place] [address] 27332 Creatinine [Mass/Vol] 1.20 mg/dL High 0.55 - 1.02 [facility] Comment on above: Performed By: #### 2 97757 ####[facility],[address] [place] [address] 59698 eGFR 44 ML/MINUTE Low 60 - 999 [facility] Comment on above: Performed By: #### 2 69280 ####[facility],[address] [place] [address] 52952 eGFR(AA) 53 ML/MINUTE Low 60 - 999 [facility] Comment on above: Result Comment: ACCO RDING TO THE NATIONAL KIDNEY DISEASE EDUCATION PROGRAM(NKDE), A NORMAL eGFRIS A VALUE GREATER THAN OR EQUAL TO 60 ML/MIN/1.73 SQ METERS.CHRONIC KIDNEY DISEASE: <60mL/MIN/1.73 SQ METERSKIDNEY FAILURE: <15mL/MIN/1.73 SQ METERSTHIS TEST SHOULD ONLY BE USED FOR PATIENTS 18 YEARS OF AGE AND OLDER. Performed By: #### 2 40955 ####[facility],[address] [place] [address] 42445 Globulin (S) [Mass/Vol] 3.9 g/dL High 1.5 - 3.8 [facility] Comment on above: Performed By: #### 2 83151 ####[facility],[address] [place] [address] 68292 Glucose [Mass/Vol] 118 mg/dL High 74 - 106 [facility] Comment on above: Performed By: #### 2 98930 ####[facility],[address] [place] [address] 07904 Potassium [Moles/Vol] 3.9 mmol/L Normal 3.5 - 5.1 [facility] Comment on above: Performed By: #### 2 35704 ####[facility],[address] [place] [address] 36920 Protein [Mass/Vol] 8.4 g/dL High 6.4 - 8.2 [facility] Comment on above: Performed By: #### 2 83758 ####[facility],[address] [place] [address] 81812 Sodium [Moles/Vol] 139 mmol/L Normal 136 - 145 [facility] Comment on above: Performed By: #### 2 59854 ####[facility],[address] [place] [address] 53098 Urea nitrogen [Mass/Vol] 15 mg/dL Normal 7 - 18 [facility] Comment on above: Performed By: #### 2 15757 ####[facility],[address] [place], [place] [address] ED MED ADMINISTRATION DETAIL on 10-26-2024 ED MED ADMINISTRATION DETAIL Normal [facility] ED NURSES CLINICAL NOTEon ED NURSES CLINICAL NOTE Normal [facility] ED ORDER SHEET (CPOE ONLY)on 10-26-2024 ED ORDER SHEET (CPOE ONLY) Normal [facility] ED PHYSICIAN CLINICAL REPORT on 10-26-2024 ED PHYSICIAN CLINICAL REPORT Normal [facility] ED SUPER BILLon 10-26-2024 ED SUPER BILL Normal [facility] ED VISIT SUMMARYon ED VISIT SUMMARY Normal [facility] ED VITALS FLOW SHEETon 10-26 ED VITALS FLOW SHEET Normal [facility] MR/BMS.IMBon 10-19-2024 MR/BMS.IMB [facility] [address] [place] [address] OFFICE VISIT Date of Service: 10/19/24 MR#: [id number] Acct: [id number] Name: BONY HUANG Rep #: [id number] : 1950 Provider: Dr. 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: No Accompanied by: Is patient in pain?: No Allergies Sulfa (Sulfonamide Antibiotics) Allergy (Mild, Verified 10/19/24 13:58) Rash sulfamethoxazole (From Bactrim) Allergy (Mild, Verified 10/19/24 13:58) rash trimethoprim (From Bactrim) Allergy (Mild, Verified 10/19/24 13:58) rash aspirin Adverse Reaction (Mild, Verified 10/19/24 13:58) nose bleed Medications ???Medication ???Instructions ???Recorded ???Confirmed ???Type melatonin 5 mg capsule 5 mg PO DAILY 10/25/22 10/19/24 Hi story cholecalciferol (vitamin D3) 25 25 mcg PO QDAY 01/23/24 10/19/24 H istory mcg (1,000 unit) capsule pantoprazole 20 mg tablet,delayed 20 mg PO 4XD 02/17/24 10/19/24 Hi story release potassium iodide 65 mg tablet 130 mg PO DAILY 02/17/24 10/19/24 History ondansetron 4 mg disintegrating 4 mg PO Q8H PRN PRN Nausea #10 tab s 02/20/24 10/19/24 Rx tablet brain sync PO DAILY 02/24/24 10/19/24 History cetirizine 5 mg tablet 5 mg PO QDAY PRN 02/24/24 10/19/24 History digestive enzymes 1 tab PO QDAY 02/24/24 10/19/24 Hi story vitamin B complex 1 tab PO QDAY 02/24/24 10/19/24 Hi story Motegrity 2 mg tablet 2 mg PO DAILY #90 tabs 05/25/24 Rx (prucalopride) levothyroxine 88 mcg tablet 88 mcg PO DAILY #90 tabs 07/06/24 10/19/24 Rx cephalexin 500 mg capsule 500 mg PO Q8H 7 days #21 caps 11/0610/19/24 Rx ergocalciferol (vitamin D2) 10 mcg 10 mcg PO QDAY 10/19/24 10/19/24 History (400 unit) tablet Have you fallen in the past year?: No PFSH Medical History Elevated serum creatinine Hypothyroidism polypectomy Gastroparesis Carcinoid tumor Surgical History H/O: hysterectomy Family History Father Heart disease Myocardial infarction Mother CVA (cerebral vascular accident) Thyroid disorder Cancer Asthma Breast cancer Sister Cancer Social History Smoking Status: Never smoker alcohol intake: never substance use type: does not use HPI HPI Chief Complaint: Pomerene Discharge FU Details: BONY HUANG, is a 74 F who presents to the office today for Pomerene discharge follow-up. Patient was seen several times recently, admitted a couple of times, for short-term stays because of dehydration. She has had repetitive bouts of diarrhea, vomiting leading to dehydration. This has become an ongoing issue of more concern because she is repeatedly getting dehydrated with creatinines well above 2 on several occasions. As we have discussed in the past, repetitive episodes like this can ultimately injure the kidneys on a permanent basis. Recently, after our discussion last year, we have finally been able to get through to [facility] neuro gastroenterology and motility disorder clinic. Been trying for some time to get the ability to refer her there for a second opinion about what is actually causing these repetitive episodes. These typically start with several days of constipation which if not relieved, culminate in nausea, emesis and then followed by diarrhea at the same time, leading to the dehydration episodes. There have been 3 nearly [id number] episodes recently. Prior to that, she went several months without any issues. Previously she had been seen at [facility]. A number of years ago, I referred her there to evaluate these episodes and ultimately she was diagnosed with gastroparesis. 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 Approximately 7 or 8 years ago, she had developed these episodes of diarrhea, vomiting and dehydration prompting the referral. She had extensive workup on 1 occasion at [facility] and after that nothing further has been done aside from trying to treat this medically for presumed gastroparesis. (more content not included)... Normal [facility] CBC + DIFF DAILYon 5 Baso # 0.03 x10EE3/UL Normal 0.00 - 0.10 [facility] Comment on above: Performed By: #### 2 20415 ####[facility],[address] [place] [address] 34253 Basophils/100 WBC (Bld) 0.5 % Normal 0.0 - 2.0 [facility] Comment on above: Performed By: #### 2 63167 ####[facility],[address] [place] [address] 23631 CBC + DIFF DAILY Normal [facility] Comment on above: Result Comment: CBC- COMPLETE BLOOD COUNT Performed By: #### 2 37992 ####[facility],[address] [place] [address] 01911 EO # 0.14 x10EE3/UL Normal 0.00 - 0.50 [facility] Comment on above: Performed By: #### 2 45569 ####[facility],[address] [place] [address] 81867 Eosinophils/100 WBC (Bld) 2.3 % Normal 0.0 - 7.0 [facility] Comment on above: Performed By: #### 2 97764 ####[facility],[address] [place] [address] 82835 Erythrocyte distribution width (RBC) [Ratio] 13.4 % Normal 12.0 - 15.6 [facility] Comment on above: Performed By: #### 2 13310 ####[facility],[address] [place] [address] 35113 Hematocrit (Bld) [Volume fraction] 35.3 % Normal 34.0 - 46.0 [facility] Comment on above: Performed By: #### 2 80098 ####[facility],[address] [place] [address] Hemoglobin (Bld) [Mass/Vol] 12.2 g/dL Normal 12.0 - 16.0 [facility] Comment on above: Performed By: #### 2 81514 ####[facility],[address] [place] [address] Lymph # 1.25 x10EE3/UL Normal 0.80 - 2.80 [facility] Comment on above: Performed By: #### 2 09767 ####[facility],[address] [place] [address] Lymphocytes/100 WBC (Bld) 21.3 % Normal 20.0 - 45.0 [facility] Comment on above: Performed By: #### 2 67940 ####[facility],[address] [place] [address] MANUAL DIFF N/A Normal [facility] Comment on above: Performed By: #### 2 07985 ####[facility],[address] [place] [address] MCH (RBC) [Entitic mass] 30 pg Normal 27 - 33 [facility] Comment on above: Performed By: #### 2 32535 ####[facility],[address] [place] [address] MCHC 35 X10 3 Normal 32 - 36 [facility] Comment on above: Performed By: #### 2 04097 ####[facility],[address] [place] [address] MCV (RBC) [Entitic vol] 87 fL Normal 80 - 99 [facility] Comment on above: Performed By: #### 2 41242 ####[facility],[address] [place] [address] [place] # 0.52 x10EE3/UL Normal 0.20 - 1.00 [facility] Comment on above: Performed By: #### 2 36761 ####[facility],[address] [place] [address] 94319 MONOS % 8.9 % Normal 0.0 - 10.0 [facility] Comment on above: Performed By: #### 2 20491 ####[facility],[address] [place] [address] 47368 Morphology Julian (Bld) [Interp] N/A Normal [facility] Comment on above: Performed By: #### 2 81122 ####[facility],[address] [place] [address] Neut # 3.92 x10EE3/UL Normal 1.50 - 7.10 [facility] Comment on above: Performed By: #### 2 57677 ####[facility],[address] [place] [address] 44448 Neutrophils/100 WBC (Bld) 67.1 % Normal 46.0 - 76.0 [facility] Comment on above: Performed By: #### 2 56738 ####[facility],[address] [place] [address] 58701 PLATELET 223 x10EE3/UL Normal 150 - 450 [facility] Comment on above: Performed By: #### 2 15070 ####[facility],[address] [place] [address] 38640 Platelet mean volume (Bld) [Entitic vol] 8.2 fL Normal 6.6 - 10.5 [facility] Comment on above: Result Comment: AUTO MATED DIFFERENTIAL Performed By: #### 2 13507 ####[facility],[address] [place] [address] 58392 RBC 4.06 x 10EE6/UL Low 4.10 - 5.30 [facility] Comment on above: Performed By: #### 2 20214 ####[facility],[address] [place] [address] 46811 WBC 5.9 x 10EE3/UL Normal 4.5 - 10.8 [facility] Comment on above: Performed By: #### 2 20414 ####[facility],[address] [place] [address] 54611 CMP with eGFR - DAILYon 07-0 AGE 74 years Normal [facility] Comment on above: Performed By: #### 2 50364 ####[facility],[address] [place] [address] Albumin [Mass/Vol] 2.8 g/dL Low 3.4 - 5.0 [facility] Comment on above: Performed By: #### 2 24840 ####[facility],[address] [place] [address] Albumin/Globulin [Mass ratio] 0.9 {ratio} Normal 0.9 - 1.6 [facility] Comment on above: Performed By: #### 2 16356 ####[facility],[address] [place] [address] 79144 ALK PHOS 72 U/L Normal 46 - 116 [facility] Comment on above: Performed By: #### 2 83847 ####[facility],[address] [place] [address] 74999 ALT [Catalytic activity/Vol] 17 U/L Normal 16 - 63 [facility] Comment on above: Performed By: #### 2 39074 ####[facility],[address] [place] [address] 82503 Anion gap [Moles/Vol] 12 mmol/L Normal 10 - 20 [facility] Comment on above: Performed By: #### 2 72675 ####[facility],[address] [place] [address] 62363 AST [Catalytic activity/Vol] 12 U/L Low 13 - 39 [facility] Comment on above: Performed By: #### 2 68015 ####[facility],[address] [place] [address] 72895 B/C RATIO 11 ratio Normal 0 - 30 [facility] Comment on above: Performed By: #### 2 97618 ####[facility],[address] [place], [place] [address] Bilirubin [Mass/Vol] 0.5 mg/dL Normal 0.2 - 1.0 [facility] Comment on above: Performed By: #### 2 81563 ####[facility],[address] [place] [address] Calcium [Mass/Vol] 8.1 mg/dL Low 8.5 - 10.1 [facility] Comment on above: Performed By: #### 2 54732 ####[facility],[address] [place] [address] Chloride [Moles/Vol] 104 mmol/L Normal 98 - 107 [facility] Comment on above: Performed By: #### 2 32023 ####[facility],[address] [place] [address] CMP with eGFR - DAILY Normal [facility] Comment on above: Result Comment: COMP REHENSIVE METABOLIC PANEL Performed By: #### 2 02113 ####[facility],[address] [place] [address] CO2 [Moles/Vol] 25.6 mmol/L Normal 21.0 - 32.0 [facility] Comment on above: Performed By: #### 2 90248 ####[facility],[address] [place], [place] [address] Creatinine [Mass/Vol] 1.11 mg/dL High 0.55 - 1.02 [facility] Comment on above: Performed By: #### 2 62164 ####[facility],[address] [place] [address] eGFR 48 ML/MINUTE Low 60 - 999 [facility] Comment on above: Performed By: #### 2 34584 ####[facility],[address] [place] [address] 85682 eGFR(AA) 58 ML/MINUTE Low 60 - 999 [facility] Comment on above: Result Comment: ACCO RDING TO THE NATIONAL KIDNEY DISEASE EDUCATION PROGRAM(NKDE), A NORMAL eGFRIS A VALUE GREATER THAN OR EQUAL TO 60 ML/MIN/1.73 SQ METERS.CHRONIC KIDNEY DISEASE: <60mL/MIN/1.73 SQ METERSKIDNEY FAILURE: <15mL/MIN/1.73 SQ METERS Performed By: #### 2 22682 ####[facility],[address] [place] [address] 82566 Globulin (S) [Mass/Vol] 3.2 g/dL Normal 1.5 - 3.8 [facility] Comment on above: Performed By: #### 2 15215 ####[facility],[address] [place] [address] 98424 Glucose [Mass/Vol] 93 mg/dL Normal 74 - 106 [facility] Comment on above: Performed By: #### 2 91907 ####[facility],[address] [place] [address] 70291 Potassium [Moles/Vol] 3.8 mmol/L Normal 3.5 - 5.1 [facility] Comment on above: Performed By: #### 2 97497 ####[facility],[address] [place] [address] 42397 Protein [Mass/Vol] 6.0 g/dL Low 6.4 - 8.2 [facility] Comment on above: Performed By: #### 2 10442 ####[facility],[address] [place] [address] 76930 Sodium [Moles/Vol] 138 mmol/L Normal 136 - 145 [facility] Comment on above: Performed By: #### 2 98724 ####[facility],[address] [place] [address] 34582 Urea nitrogen [Mass/Vol] 12 mg/dL Normal 7 - 18 [facility] Comment on above: Performed By: #### 2 45172 ####[place] [address],[place] [address] BMP with eGFRon 10-12-2024 AGE 74 years Normal [facility] Comment on above: Performed By: #### 2 67194 ####[facility],[address] [place] [address] 20910 Anion gap [Moles/Vol] 18 mmol/L Normal 10 - 20 [facility] Comment on above: Performed By: #### 2 76653 ####[facility],[address] [place] [address] 54331 BMP with eGFR Normal [facility] Comment on above: Result Comment: BASI C METABOLIC PANEL Performed By: #### 2 51597 ####[facility],[address] [place] [address] 62212 Calcium [Mass/Vol] 9.9 mg/dL Normal 8.5 - 10.1 [facility] Comment on above: Performed By: #### 2 60500 ####[facility],[address] [place] [address] 11067 Chloride [Moles/Vol] 96 mmol/L Low 98 - 107 [facility] Comment on above: Performed By: #### 2 83796 ####[facility],[address] [place] [address] 04995 CO2 [Moles/Vol] 26.4 mmol/L Normal 21.0 - 32.0 [facility] Comment on above: Performed By: #### 2 96979 ####[facility],[address] [place] [address] 42220 Creatinine [Mass/Vol] 2.53 mg/dL High 0.55 - 1.02 [facility] Comment on above: Performed By: #### 2 66897 ####[facility],[address] [place] [address] 81414 eGFR 19 ML/MINUTE Low 60 - 999 [facility] Comment on above: Performed By: #### 2 68602 ####[facility],[address] [place] [address] 23536 eGFR(AA) 23 ML/MINUTE Low 60 - 999 [facility] Comment on above: Result Comment: ACCO RDING TO THE NATIONAL KIDNEY DISEASE EDUCATION PROGRAM(NKDE), A NORMAL eGFRIS A VALUE GREATER THAN OR EQUAL TO 60 ML/MIN/1.73 SQ METERS.CHRONIC KIDNEY DISEASE: <60mL/MIN/1.73 SQ METERSKIDNEY FAILURE: <15mL/MIN/1.73 SQ METERSTHIS TEST SHOULD ONLY BE USED FOR PATIENTS 18 YEARS OF AGE AND OLDER. Performed By: #### 2 86173 ####[facility],[address] [place] [address] 21151 Glucose [Mass/Vol] 172 mg/dL High 74 - 106 [facility] Comment on above: Performed By: #### 2 13852 ####[facility],[address] [place] [address] 64940 Potassium [Moles/Vol] 3.6 mmol/L Normal 3.5 - 5.1 [facility] Comment on above: Performed By: #### 2 61969 ####[facility],[address] [place] [address] 93528 Sodium [Moles/Vol] 137 mmol/L Normal 136 - 145 [facility] Comment on above: Performed By: #### 2 84791 ####[facility],[address] [place] [address] 86689 Urea nitrogen [Mass/Vol] 22 mg/dL High 7 - 18 [facility] Comment on above: Performed By: #### 2 51544 ####[facility],[address] [place] [address] 18027 Lynette 10-12-2024 LISY Telephone ([facility] BONY HUANG ([id number]) 1950 F Date Time Provider Department 10/12/24 BRENT CANTU During your visit today, we recorded the following information about you: Joann Orourke 10/12/2024 10:00 AM Signed calling requesting a follow up for his with Dr. Cantu His phone is [phone] Trosten Alejandro 10/12/2024 11:45 AM Signed Pt scheduled 11/16 Allergies As of Date: 10/12/2024 Noted Allergy Reaction ASA (ASPIRIN) 08/28/2012 14 - Other: See Comments Comments: nose bleeds BACTRIM (SULFAMETHOXAZOLE) 02/26/2013 7 - Swelling SULFA (SULFONAMIDE ANTIBIOTICS) 05/28/2013 7 - Swelling Comments: Lip swelling Date Reviewed: 10/16/2023 Reviewed by: Lucila De Souza, RN - Fully Assessed Reason for Visit: Appointment [186] Prescriptions as of 10/12/2024 - prucalopride (MOTEGRITY) 2 mg tab tablet Take 2 mg by mouth once daily. - potassium chloride (K-TAB) 10 mEq tablet Take 10 mEq by mouth two times a day. - ondansetron (ZOFRAN) 4 mg tablet Take by mouth every 8 hours as needed for nausea/vomiting. - [place]-3 Fatty Acids 500 mg cap Take 500 mg by mouth once daily. - Cholecalciferol, Vitamin D3, (VITAMIN D-3) 50 mcg (2,000 unit) cap Take by mouth. - levothyroxine (SYNTHROID) 88 mcg tablet Take 88 mcg by mouth daily before breakfast. - multivit/iron/FA/K/h erb no.244 (ALIVE WOMEN'S ENERGY ORAL) Take 2 capsules by mouth once daily. - B Complex Vitamins capsule Take 1 capsule by mouth daily before breakfast. - promethazine (PHENERGAN) 12.5 mg tablet Take 12.5 mg by mouth every 8 hours as needed for nausea/vomiting. - ciprofloxacin HCl (CIPRO) 500 mg tablet Take 250 mg by mouth twice daily. - levothyroxine (SYNTHROID) 75 mcg tablet Take 1 tablet by mouth DAILY (6 AM). - pantoprazole DR (PROTONIX) 20 mg tablet Take 20 mg by mouth every evening. - TRANSDERM-SCOP 1.5 MG TRANSDERMAL PATCH (1 MG OVER 3 DAYS) - D-MANNOSE ORAL Take 1,000 mg by mouth twice daily. - Multivitamins-Iron (DAILY MULTI-VITAMINS/IRON) tab Take 1 tablet by mouth twice daily. - oxymetazoline (AFRIN, OXYMETAZOLINE,) 0.05 % nasal spray Use 2 Sprays in the nose as needed. - cetirizine (ZYRTEC) 10 mg tablet Take 1 tablet by mouth once daily. - lactobacillus rhamnosus R0011 (PROBIOTIC DIGESTIVE CARE) 20 billion cell cap Take 1 Can by mouth once daily. Problem List As Of Date 10/12/2024 Noted Resolved Allergic rhinitis [J30.9] 08/28/2012 Hypothyroid [E03.9] 08/28/2012 GERD (gastroesophageal reflux disease) [K21.9] 08/28/2012 Hypercholesterolemia [E78.00] 08/28/2012 Nausea and vomiting [R11.2] Nausea with vomiting [R11.2] 05/21/2014 Intractable nausea and vomiting [R11.2] 11/05/2018 11/08/2018 Acquired hypothyroidism [E03.9] 11/05/2018 Diarrhea [R19.7] 11/05/2018 11/08/2018 ALICIA (acute kidney injury) (HCC) [N17.9] 11/05/2018 11/08/2018 Malnutrition of mild degree (HCC) [E44.1] 11/06/2018 Dysphagia [R13.10] 10/16/2023 Encounter Status:Closed by TORSTEN ALEJANDRO on 10/12/24 Normal [facility] CT ABDOMEN/PELVIS WOon 10-12 CT ABDOMEN/PELVIS WO Normal [facility] ED MED ADMINISTRATION DETAIL on 10-12-2024 ED MED ADMINISTRATION DETAIL Normal [facility] ED MED ADMINISTRATION DETAIL Normal [facility] ED NURSES CLINICAL NOTEon ED NURSES CLINICAL NOTE Normal [facility] ED NURSES CLINICAL NOTE Normal [facility] ED ORDER SHEET (CPOE ONLY)on 10-12-2024 ED ORDER SHEET (CPOE ONLY) Normal [facility] ED ORDER SHEET (CPOE ONLY) Normal [facility] ED PHYSICIAN CLINICAL REPORT on 10-12-2024 ED PHYSICIAN CLINICAL REPORT Normal [facility] ED PHYSICIAN CLINICAL REPORT Normal [facility] ED SUPER BILLon 10-12-2024 ED SUPER BILL Normal [facility] ED SUPER BILL Normal [facility] ED VISIT SUMMARYon ED VISIT SUMMARY Normal [facility] ED VISIT SUMMARY Normal [facility] ED VITALS FLOW SHEETon 10-12 ED VITALS FLOW SHEET Normal [facility] ED VITALS FLOW SHEET Normal [facility] URINALYSISon 10-12-2024 Amorphous NONE Normal [facility] Comment on above: Performed By: #### 2 10763 ####[facility],[address] [place] [address] Bacteria 3+ Normal [facility] Comment on above: Performed By: #### 2 94465 ####[facility],[address] [place] [address] Bilirubin Ql (U) Negative Normal NORMAL: NEGATIVE [facility] Comment on above: Performed By: #### 2 90797 ####[facility],[address] [place] [address] Calcium Ox 2+ Normal NORMAL: NONE [facility] Comment on above: Performed By: #### 2 28110 ####[facility],[address] [place] [address] Casts SEE BELOW Normal [facility] Comment on above: Performed By: #### 2 04990 ####[facility],[address] [place] [address] Clarity (U) clear Normal NORMAL: CLEAR [facility] Comment on above: Performed By: #### 2 94290 ####[facility],[address] [place], [place] [address] Color (U) brown Normal NORMAL: YELLOW [facility] Comment on above: Performed By: #### 2 84154 ####[facility],[address] [place] [address],[facility] [address] Crystals LM Nom (Urine sed) SEE BELOW Normal [facility] Comment on above: Performed By: #### 2 11067 ####[facility],[address] [place] [address],[facility] [address] Epi Cells OCC Normal [facility] Comment on above: Performed By: #### 2 67404 ####[facility],[address] [place] [address],[facility] [address] Glucose Ql (U) NORM Normal NORMAL: NORMAL [facility] Comment on above: Performed By: #### 2 09695 ####[facility],[address] [place] [address] 64921 Hemoglobin Ql (U) Negative Normal NORMAL: NEGATIVE [facility] Comment on above: Performed By: #### 2 51727 ####[facility],[address] [place] [address] 60344 Hyaline 16-25 Normal NORMAL: NONE [facility] Comment on above: Performed By: #### 2 00134 ####[facility],[address] [place] [address] 58387 Ketone 15 Abnormal NORMAL: NEGATIVE [facility] Comment on above: Performed By: #### 2 85472 ####[facility],[address] [place] [address] 58672 Leukocytes 25 Abnormal NORMAL: NEGATIVE [facility] Comment on above: Performed By: #### 2 50045 ####[facility],[address] [place] [address] 45831 Mucous 3+ Normal [facility] Comment on above: Performed By: #### 2 33442 ####[facility],[address] [place] [address] 79111 Nitrite Ql (U) Negative Normal NORMAL: NEGATIVE [facility] Comment on above: Performed By: #### 2 63351 ####[facility],[address] [place] [address] pH (U) 5 [pH] Normal NORMAL: 5.0-8.0 [facility] Comment on above: Performed By: #### 2 41146 ####[facility],[address] [place] [address] Protein Ql (U) 30 Abnormal NORMAL: NEGATIVE [facility] Comment on above: Performed By: #### 2 40328 ####[facility],[address] [place] [address] Rbc NONE Normal 0-3/hpf [facility] Comment on above: Performed By: #### 2 69217 ####[facility],[address] [place] [address] Sp [place] 1.025 Normal NORMAL: 1.010-1.030 [facility] Comment on above: Performed By: #### 2 54958 ####[facility],[address] [place] [address] Specimen Type Void Normal [facility] Comment on above: Performed By: #### 2 60820 ####[facility],[address] [place] [address] Urinalysis dipstick W Reflex Microscopic panel (U) SEE BELOW Normal [facility] Comment on above: Result Comment: MICR OSCOPIC Performed By: #### 2 95652 ####[facility],[address] [place] [address] Urobilinog 1 Abnormal NORMAL: NORMAL [facility] Comment on above: Performed By: #### 2 06079 ####[facility],[address] [place] [address] Wbc 1-5 Normal 0-5/hpf [facility] Comment on above: Performed By: #### 2 66393 ####[facility],[address] [place] [address] Yeast NONE Normal [facility] Comment on above: Performed By: #### 2 60674 ####[facility],[address] [place] [address] 40193 BMP with eGFRon 10-11-2024 AGE 74 years Normal [facility] Comment on above: Performed By: #### 2 92657 ####[facility],[address] [place] [address] 38609 Anion gap [Moles/Vol] 16 mmol/L Normal 10 - 20 [facility] Comment on above: Performed By: #### 2 98500 ####[facility],[address] [place] [address] 81186 BMP with eGFR Normal [facility] Comment on above: Result Comment: BASI C METABOLIC PANEL Performed By: #### 2 80966 ####[facility],[address] [place] [address] 53674 Calcium [Mass/Vol] 10.1 mg/dL Normal 8.5 - 10.1 [facility] Comment on above: Performed By: #### 2 42919 ####[facility],[address] [place] [address] 59211 Chloride [Moles/Vol] 95 mmol/L Low 98 - 107 [facility] Comment on above: Performed By: #### 2 13260 ####[facility],[address] [place] [address] 27085 CO2 [Moles/Vol] 26.8 mmol/L Normal 21.0 - 32.0 [facility] Comment on above: Performed By: #### 2 87806 ####[facility],[address] [place] [address] 08557 Creatinine [Mass/Vol] 1.50 mg/dL High 0.55 - 1.02 [facility] Comment on above: Performed By: #### 2 15700 ####[facility],[address] [place] [address] 59817 eGFR 34 ML/MINUTE Low 60 - 999 [facility] Comment on above: Performed By: #### 2 30729 ####[facility],[address] [place] [address] 60630 eGFR(AA) 41 ML/MINUTE Low 60 - 999 [facility] Comment on above: Result Comment: ACCO RDING TO THE NATIONAL KIDNEY DISEASE EDUCATION PROGRAM(NKDE), A NORMAL eGFRIS A VALUE GREATER THAN OR EQUAL TO 60 ML/MIN/1.73 SQ METERS.CHRONIC KIDNEY DISEASE: <60mL/MIN/1.73 SQ METERSKIDNEY FAILURE: <15mL/MIN/1.73 SQ METERSTHIS TEST SHOULD ONLY BE USED FOR PATIENTS 18 YEARS OF AGE AND OLDER. Performed By: #### 2 18834 ####[address] [address] Glucose [Mass/Vol] 119 mg/dL High 74 - 106 [facility] Comment on above: Performed By: #### 2 75800 ####[address] [address]66 Potassium [Moles/Vol] 3.5 mmol/L Normal 3.5 - 5.1 [facility] Comment on above: Performed By: #### 2 87289 ####[address] [address] Sodium [Moles/Vol] 134 mmol/L Low 136 - 145 [facility] Comment on above: Performed By: #### 2 87328 ####[address] [address]75 Urea nitrogen [Mass/Vol] 15 mg/dL Normal 7 - 18 [facility] Comment on above: Performed By: #### 2 96415 ####[address] [address] CBC + DIFFon 10-11-2024 Baso # 0.02 x10EE3/UL Normal 0.00 - 0.10 [facility] Comment on above: Performed By: #### 2 26493 ####[facility] [place] [address] 18604 Basophils/100 WBC (Bld) 0.2 % Normal 0.0 - 2.0 [facility] Comment on above: Performed By: #### 2 09247 ####[facility],[address] [place] [address] CBC + DIFF Normal [facility] Comment on above: Result Comment: CBC- COMPLETE BLOOD COUNT Performed By: #### 2 74126 ####[facility],[address] [place] [address] EO # 0.12 x10EE3/UL Normal 0.00 - 0.50 [facility] Comment on above: Performed By: #### 2 77770 ####[facility],[address] [place], [place] [address] Eosinophils/100 WBC (Bld) 1.4 % Normal 0.0 - 7.0 [facility] Comment on above: Performed By: #### 2 79800 ####[facility],[address] [place] [address] Erythrocyte distribution width (RBC) [Ratio] 13.4 % Normal 12.0 - 15.6 [facility] Comment on above: Performed By: #### 2 79827 ####[facility],[address] [place] [address] Hematocrit (Bld) [Volume fraction] 48.2 % High 34.0 - 46.0 [facility] Comment on above: Performed By: #### 2 95065 ####[facility],[address] [place], [place] [address] Hemoglobin (Bld) [Mass/Vol] 16.7 g/dL High 12.0 - 16.0 [facility] Comment on above: Performed By: #### 2 25220 ####[facility],[address] [place], [place] [address] Lymph # 1.49 x10EE3/UL Normal 0.80 - 2.80 [facility] Comment on above: Performed By: #### 2 77994 ####[facility],[address] [place] [address] 25667 Lymphocytes/100 WBC (Bld) 18.2 % Low 20.0 - 45.0 [facility] Comment on above: Performed By: #### 2 56252 ####[facility],[address] [place] [address] 30365 MANUAL DIFF N/A Normal [facility] Comment on above: Performed By: #### 2 59656 ####[facility],[address] [place] [address] 90936 MCH (RBC) [Entitic mass] 29 pg Normal 27 - 33 [facility] Comment on above: Performed By: #### 2 19979 ####[facility],[address] [place] [address] MCHC 35 X10 3 Normal 32 - 36 [facility] Comment on above: Performed By: #### 2 51114 ####[facility],[address] [place] [address] 67440 MCV (RBC) [Entitic vol] 85 fL Normal 80 - 99 [facility] Comment on above: Performed By: #### 2 06918 ####[facility],[address] [place] [address] 66416 [place] # 0.57 x10EE3/UL Normal 0.20 - 1.00 [facility] Comment on above: Performed By: #### 2 45797 ####[facility],[address] [place] [address] 26947 MONOS % 6.9 % Normal 0.0 - 10.0 [facility] Comment on above: Performed By: #### 2 13167 ####[facility],[address] [place] [address] 64482 Morphology Julian (Bld) [Interp] N/A Normal [facility] Comment on above: Performed By: #### 2 66992 ####[facility],[address] [place] [address] 56997 Neut # 6.00 x10EE3/UL Normal 1.50 - 7.10 [facility] Comment on above: Performed By: #### 2 54092 ####[facility],[address] [place] [address] 14326 Neutrophils/100 WBC (Bld) 73.2 % Normal 46.0 - 76.0 [facility] Comment on above: Performed By: #### 2 73083 ####[facility],[address] [place] [address] 49493 PLATELET 291 x10EE3/UL Normal 150 - 450 [facility] Comment on above: Performed By: #### 2 10762 ####[facility],[address] [place] [address] 38102 Platelet mean volume (Bld) [Entitic vol] 7.4 fL Normal 6.6 - 10.5 [facility] Comment on above: Result Comment: AUTO MATED DIFFERENTIAL Performed By: #### 2 61153 ####[facility],[address] [place] [address] 73542 RBC 5.69 x 10EE6/UL High 4.10 - 5.30 [facility] Comment on above: Performed By: #### 2 70579 ####[facility],[address] [place] [address] 04856 WBC 8.2 x 10EE3/UL Normal 4.5 - 10.8 [facility] Comment on above: Performed By: #### 2 75608 ####[facility],[address] [place] [address] 98408 C-REACTIVE PROTEINon 025 CRP 0.29 mg/dl Normal 0.00 - 0.90 [facility] Comment on above: Performed By: #### 2 28824 ####[facility],[address] [place] [address] 12431 CBC + DIFFon 10-06-2024 Baso # 0.04 x10EE3/UL Normal 0.00 - 0.10 [facility] Comment on above: Performed By: #### 2 14526 ####[facility],[address] [place] [address] 69653 Basophils/100 WBC (Bld) 0.3 % Normal 0.0 - 2.0 [facility] Comment on above: Performed By: #### 2 32001 ####[facility],[address] [place] [address] CBC + DIFF Normal [facility] Comment on above: Result Comment: CBC- COMPLETE BLOOD COUNT Performed By: #### 2 92784 ####[facility],[address] [place] [address] EO # 0.10 x10EE3/UL Normal 0.00 - 0.50 [facility] Comment on above: Performed By: #### 2 42168 ####[facility],[address] [place], [place] [address] Eosinophils/100 WBC (Bld) 0.8 % Normal 0.0 - 7.0 [facility] Comment on above: Performed By: #### 2 99384 ####[facility],[address] [place] [address] Erythrocyte distribution width (RBC) [Ratio] 13.3 % Normal 12.0 - 15.6 [facility] Comment on above: Performed By: #### 2 98736 ####[facility],[address] [place] [address] Hematocrit (Bld) [Volume fraction] 48.4 % High 34.0 - 46.0 [facility] Comment on above: Performed By: #### 2 58236 ####[facility],[address] [place], [place] [address] Hemoglobin (Bld) [Mass/Vol] 16.6 g/dL High 12.0 - 16.0 [facility] Comment on above: Performed By: #### 2 12704 ####[facility],[address] [place] [address] 01381 Lymph # 0.78 x10EE3/UL Low 0.80 - 2.80 [facility] Comment on above: Performed By: #### 2 30597 ####[facility],[address] [place] [address] 93720 Lymphocytes/100 WBC (Bld) 5.6 % Low 20.0 - 45.0 [facility] Comment on above: Performed By: #### 2 54000 ####[facility],[address] [place] [address] 49428 MANUAL DIFF N/A Normal [facility] Comment on above: Performed By: #### 2 75599 ####[facility],[address] [place], [place] [address] MCH (RBC) [Entitic mass] 29 pg Normal 27 - 33 [facility] Comment on above: Performed By: #### 2 08461 ####[facility],[address] [place] [address] 52813 MCHC 34 X10 3 Normal 32 - 36 [facility] Comment on above: Performed By: #### 2 87128 ####[facility],[address] [place] [address] 52624 MCV (RBC) [Entitic vol] 85 fL Normal 80 - 99 [facility] Comment on above: Performed By: #### 2 73345 ####[facility],[address] [place] [address] 01645 [place] # 0.65 x10EE3/UL Normal 0.20 - 1.00 [facility] Comment on above: Performed By: #### 2 90588 ####[facility],[address] [place] [address] 44539 MONOS % 4.7 % Normal 0.0 - 10.0 [facility] Comment on above: Performed By: #### 2 33114 ####[facility],[address] [place] [address] 88717 Morphology Julian (Bld) [Interp] N/A Normal [facility] Comment on above: Performed By: #### 2 49550 ####[facility],[address] [place] [address] 62700 Neut # 12.26 x10EE3/UL High 1.50 - 7.10 [facility] Comment on above: Performed By: #### 2 86068 ####[facility],[address] [place] [address] 45701 Neutrophils/100 WBC (Bld) 88.7 % High 46.0 - 76.0 [facility] Comment on above: Performed By: #### 2 11798 ####[facility],[address] [place] [address] 94952 PLATELET 316 x10EE3/UL Normal 150 - 450 [facility] Comment on above: Performed By: #### 2 35253 ####[facility],[address] [place] [address] 47981 Platelet mean volume (Bld) [Entitic vol] 7.1 fL Normal 6.6 - 10.5 [facility] Comment on above: Result Comment: AUTO MATED DIFFERENTIAL Performed By: #### 2 26144 ####[facility],[address] [place] [address] 75944 RBC 5.71 x 10EE6/UL High 4.10 - 5.30 [facility] Comment on above: Performed By: #### 2 89959 ####[facility],[address] [place] [address] 57633 WBC 13.8 x 10EE3/UL High 4.5 - 10.8 [facility] Comment on above: Performed By: #### 2 56676 ####[facility],[address] [place] [address] 03658 CMP with eGFRon 10-06-2024 AGE 74 years Normal [facility] Comment on above: Performed By: #### 2 86279 ####[facility],[address] [place] [address] 79140 Albumin [Mass/Vol] 4.1 g/dL Normal 3.4 - 5.0 [facility] Comment on above: Performed By: #### 2 90894 ####[facility],[address] [place] [address] 40629 Albumin/Globulin [Mass ratio] 0.9 {ratio} Normal 0.9 - 1.6 [facility] Comment on above: Performed By: #### 2 40517 ####[facility],[address] [place] [address] 13158 ALK PHOS 109 U/L Normal 46 - 116 [facility] Comment on above: Performed By: #### 2 56941 ####[facility],[address] [place] [address] 85130 ALT [Catalytic activity/Vol] 28 U/L Normal 16 - 63 [facility] Comment on above: Performed By: #### 2 60883 ####[facility],[address] [place] [address] 50422 Anion gap [Moles/Vol] 14 mmol/L Normal 10 - 20 [facility] Comment on above: Performed By: #### 2 09784 ####[facility],[address] [place] [address] 25821 AST [Catalytic activity/Vol] 30 U/L Normal 13 - 39 [facility] Comment on above: Performed By: #### 2 50985 ####[facility],[address] [place] [address] 46553 B/C RATIO 15 ratio Normal 0 - 30 [facility] Comment on above: Performed By: #### 2 42572 ####[facility],[address] [place] [address] 70051 Bilirubin [Mass/Vol] 0.6 mg/dL Normal 0.2 - 1.0 [facility] Comment on above: Performed By: #### 2 53928 ####[facility],[address] [place] [address] 28376 Calcium [Mass/Vol] 9.8 mg/dL Normal 8.5 - 10.1 [facility] Comment on above: Performed By: #### 2 15342 ####[facility],[address] [place] [address] 27997 Chloride [Moles/Vol] 96 mmol/L Low 98 - 107 [facility] Comment on above: Performed By: #### 2 70857 ####[facility],[address] [place] [address] 99716 CMP with eGFR Normal [facility] Comment on above: Result Comment: COMP REHENSIVE METABOLIC PANEL Performed By: #### 2 64150 ####[facility],[address] [place] [address] 04941 CO2 [Moles/Vol] 28.8 mmol/L Normal 21.0 - 32.0 [facility] Comment on above: Performed By: #### 2 43789 ####[facility],[address] [place] [address] 84557 Creatinine [Mass/Vol] 1.21 mg/dL High 0.55 - 1.02 [facility] Comment on above: Performed By: #### 2 66734 ####[facility],[address] [place] [address] 69601 eGFR 44 ML/MINUTE Low 60 - 999 [facility] Comment on above: Performed By: #### 2 31919 ####[facility],[address] [place] [address] 24862 eGFR(AA) 53 ML/MINUTE Low 60 - 999 [facility] Comment on above: Result Comment: ACCO RDING TO THE NATIONAL KIDNEY DISEASE EDUCATION PROGRAM(NKDE), A NORMAL eGFRIS A VALUE GREATER THAN OR EQUAL TO 60 ML/MIN/1.73 SQ METERS.CHRONIC KIDNEY DISEASE: <60mL/MIN/1.73 SQ METERSKIDNEY FAILURE: <15mL/MIN/1.73 SQ METERSTHIS TEST SHOULD ONLY BE USED FOR PATIENTS 18 YEARS OF AGE AND OLDER. Performed By: #### 2 68587 ####[facility],[address] [place] [address] 41120 Globulin (S) [Mass/Vol] 4.8 g/dL High 1.5 - 3.8 [facility] Comment on above: Performed By: #### 2 67013 ####[facility],[address] [place] [address] 39655 Glucose [Mass/Vol] 135 mg/dL High 74 - 106 [facility] Comment on above: Performed By: #### 2 37985 ####[facility],[address] [place] [address] 00888 Potassium [Moles/Vol] 4.2 mmol/L Normal 3.5 - 5.1 [facility] Comment on above: Performed By: #### 2 42540 ####[facility],[address] [place] [address] 55743 Protein [Mass/Vol] 8.9 g/dL High 6.4 - 8.2 [facility] Comment on above: Performed By: #### 2 55480 ####[facility],[address] [place] [address] 42205 Sodium [Moles/Vol] 135 mmol/L Low 136 - 145 [facility] Comment on above: Performed By: #### 2 26589 ####[facility],[address] [place] [address] 13580 Urea nitrogen [Mass/Vol] 18 mg/dL Normal 7 - 18 [facility] Comment on above: Performed By: #### 2 65282 ####[facility],[address] [place] [address] 70798 ED MED ADMINISTRATION DETAIL on 10-06-2024 ED MED ADMINISTRATION DETAIL Normal [facility] ED NURSES CLINICAL NOTEon ED NURSES CLINICAL NOTE Normal [facility] ED ORDER SHEET (CPOE ONLY)on 10-06-2024 ED ORDER SHEET (CPOE ONLY) Normal [facility] ED PHYSICIAN CLINICAL REPORT on 10-06-2024 ED PHYSICIAN CLINICAL REPORT Normal [facility] ED SUPER BILLon 10-06-2024 ED SUPER BILL Normal [facility] ED VISIT SUMMARYon ED VISIT SUMMARY Normal [facility] ED VITALS FLOW SHEETon 10-06 ED VITALS FLOW SHEET Normal [facility] LIPASEon 10-06-2024 Lipase [Catalytic activity/Vol] 154.0 U/L High 15.0 - 78.0 [facility] Comment on above: Result Comment: *PLE ASE NOTE THAT RANGES FOR LIPASE HAVE CHANGED OF 04/12/23 DUE TO AN ASSAYUPDATE BY THE HAND BINDER STRIPPER.THE NEW ASSAY RANGE IS 6-250 U/L, WITH A REFERENCERANGE OF 16-77 U/L. Performed By: #### 2 52264 ####[facility],[address] [place] [address] 07642 ED MED ADMINISTRATION DETAIL on 09-02-2024 ED MED ADMINISTRATION DETAIL Normal [facility] ED NURSES CLINICAL NOTEon ED NURSES CLINICAL NOTE Normal [facility] ED ORDER SHEET (CPOE ONLY)on 09-02-2024 ED ORDER SHEET (CPOE ONLY) Normal [facility] ED PHYSICIAN CLINICAL REPORT on 09-02-2024 ED PHYSICIAN CLINICAL REPORT Normal [facility] ED SUPER BILLon 09-02-2024 ED SUPER BILL Normal [facility] ED VISIT SUMMARYon ED VISIT SUMMARY Normal [facility] ED VITALS FLOW SHEETon 09-02 ED VITALS FLOW SHEET Normal [facility] CBC + DIFFon 09-01-2024 Baso # 0.03 x10EE3/UL Normal 0.00 - 0.10 [facility] Comment on above: Performed By: #### 2 61286 ####[facility],[address] [place], [place] [phone] Basophils/100 WBC (Bld) 0.3 % Normal 0.0 - 2.0 [facility] Comment on above: Performed By: #### 2 56814 ####[facility],[address] [place] [address] CBC + DIFF Normal [facility] Comment on above: Result Comment: CBC- COMPLETE BLOOD COUNT Performed By: #### 2 85364 ####[facility],[address] [place] [address] EO # 0.13 x10EE3/UL Normal 0.00 - 0.50 [facility] Comment on above: Performed By: #### 2 90635 ####[facility],[address] [place] [address] Eosinophils/100 WBC (Bld) 1.0 % Normal 0.0 - 7.0 [facility] Comment on above: Performed By: #### 2 80470 ####[facility],[address] [place] [address] Erythrocyte distribution width (RBC) [Ratio] 13.8 % Normal 12.0 - 15.6 [facility] Comment on above: Performed By: #### 2 48823 ####[facility],[address] [place] [address] Hematocrit (Bld) [Volume fraction] 49.7 % High 34.0 - 46.0 [facility] Comment on above: Performed By: #### 2 47653 ####[facility],[address] [place] [address] Hemoglobin (Bld) [Mass/Vol] 16.8 g/dL High 12.0 - 16.0 [facility] Comment on above: Performed By: #### 2 51216 ####[facility],[address] [place], [place] [address] Lymph # 1.20 x10EE3/UL Normal 0.80 - 2.80 [facility] Comment on above: Performed By: #### 2 61598 ####[facility],[address] [place] [address] 00309 Lymphocytes/100 WBC (Bld) 9.3 % Low 20.0 - 45.0 [facility] Comment on above: Performed By: #### 2 96397 ####[facility],[address] [place] [address] 51874 MANUAL DIFF N/A Normal [facility] Comment on above: Performed By: #### 2 07518 ####[facility],[address] [place] [address] MCH (RBC) [Entitic mass] 29 pg Normal 27 - 33 [facility] Comment on above: Performed By: #### 2 51502 ####[facility],[address] [place] [address] MCHC 34 X10 3 Normal 32 - 36 [facility] Comment on above: Performed By: #### 2 23887 ####[facility],[address] [place], [place] [address] MCV (RBC) [Entitic vol] 86 fL Normal 80 - 99 [facility] Comment on above: Performed By: #### 2 53478 ####[facility],[address] [place] [address] [place] # 0.63 x10EE3/UL Normal 0.20 - 1.00 [facility] Comment on above: Performed By: #### 2 73531 ####[facility],[address] [place] [address] 44074 MONOS % 4.9 % Normal 0.0 - 10.0 [facility] Comment on above: Performed By: #### 2 87917 ####[facility],[address] [place] [address] 87662 Morphology Julian (Bld) [Interp] N/A Normal [facility] Comment on above: Performed By: #### 2 40744 ####[facility],[address] [place] [address] 81512 Neut # 10.86 x10EE3/UL High 1.50 - 7.10 [facility] Comment on above: Performed By: #### 2 46857 ####[facility],[address] [place] [address] 15631 Neutrophils/100 WBC (Bld) 84.5 % High 46.0 - 76.0 [facility] Comment on above: Performed By: #### 2 64217 ####[facility],[address] [place] [address] 74330 PLATELET 354 x10EE3/UL Normal 150 - 450 [facility] Comment on above: Performed By: #### 2 72628 ####[facility],[address] [place] [address] 58880 Platelet mean volume (Bld) [Entitic vol] 7.7 fL Normal 6.6 - 10.5 [facility] Comment on above: Result Comment: AUTO MATED DIFFERENTIAL Performed By: #### 2 71494 ####[facility],[address] [place] [address] 24021 RBC 5.78 x 10EE6/UL High 4.10 - 5.30 [facility] Comment on above: Performed By: #### 2 51994 ####[facility],[address] [place] [address] 89451 WBC 12.9 x 10EE3/UL High 4.5 - 10.8 [facility] Comment on above: Performed By: #### 2 86160 ####[facility],[address] [place] [address] 98066 CMP with eGFRon 09-01-2024 AGE 74 years Normal [facility] Comment on above: Performed By: #### 2 57206 ####[facility],[address] [place] [address] 46104 Albumin [Mass/Vol] 4.7 g/dL Normal 3.4 - 5.0 [facility] Comment on above: Performed By: #### 2 84508 ####[facility],[address] [place] [address] 15146 Albumin/Globulin [Mass ratio] 1.1 {ratio} Normal 0.9 - 1.6 [facility] Comment on above: Performed By: #### 2 60030 ####[facility],[address] [place] [address] 42805 ALK PHOS 113 U/L Normal 46 - 116 [facility] Comment on above: Performed By: #### 2 34178 ####[facility],[address] [place] [address] 52235 ALT [Catalytic activity/Vol] 24 U/L Normal 16 - 63 [facility] Comment on above: Performed By: #### 2 64867 ####[facility],[address] [place] [address] 73367 Anion gap [Moles/Vol] 6 mmol/L Low 10 - 20 [facility] Comment on above: Performed By: #### 2 43494 ####[facility],[address] [place] [address] 44641 AST [Catalytic activity/Vol] 18 U/L Normal 13 - 39 [facility] Comment on above: Performed By: #### 2 02078 ####[facility],[address] [place] [address] 34599 B/C RATIO 12 ratio Normal 0 - 30 [facility] Comment on above: Performed By: #### 2 99985 ####[facility],[address] [place] [address] 60581 Bilirubin [Mass/Vol] 0.5 mg/dL Normal 0.2 - 1.0 [facility] Comment on above: Performed By: #### 2 78911 ####[facility],[address] [place] [address] 96727 Calcium [Mass/Vol] 10.0 mg/dL Normal 8.5 - 10.1 [facility] Comment on above: Performed By: #### 2 40520 ####[facility],[address] [place], [place] [phone] Chloride [Moles/Vol] 94 mmol/L Low 98 - 107 [facility] Comment on above: Performed By: #### 2 53744 ####[facility],[address] [place] [address] CMP with eGFR Normal [facility] Comment on above: Result Comment: COMP REHENSIVE METABOLIC PANEL Performed By: #### 2 66984 ####[facility],[address] [place] [address] CO2 [Moles/Vol] 27.1 mmol/L Normal 21.0 - 32.0 [facility] Comment on above: Performed By: #### 2 85912 ####[facility],[address] [place] [address] Creatinine [Mass/Vol] 1.54 mg/dL High 0.55 - 1.02 [facility] Comment on above: Performed By: #### 2 67051 ####[facility],[address] [place] [address] eGFR 33 ML/MINUTE Low 60 - 999 [facility] Comment on above: Performed By: #### 2 55521 ####[facility],[address] [place] [address] eGFR(AA) 40 ML/MINUTE Low 60 - 999 [facility] Comment on above: Result Comment: ACCO RDING TO THE NATIONAL KIDNEY DISEASE EDUCATION PROGRAM(NKDE), A NORMAL eGFRIS A VALUE GREATER THAN OR EQUAL TO 60 ML/MIN/1.73 SQ METERS.CHRONIC KIDNEY DISEASE: <60mL/MIN/1.73 SQ METERSKIDNEY FAILURE: <15mL/MIN/1.73 SQ METERSTHIS TEST SHOULD ONLY BE USED FOR PATIENTS 18 YEARS OF AGE AND OLDER. Performed By: #### 2 40755 ####[facility],[address] [place] [address] 13787 Globulin (S) [Mass/Vol] 4.1 g/dL High 1.5 - 3.8 [facility] Comment on above: Performed By: #### 2 [address]90 ####[facility],[address] [place] [address] 62240 Glucose [Mass/Vol] 145 mg/dL High 74 - 106 [facility] Comment on above: Performed By: #### 2 65675 ####[facility],[address] [place] [address] 94415 Potassium [Moles/Vol] 3.3 mmol/L Low 3.5 - 5.1 [facility] Comment on above: Performed By: #### 2 47263 ####[facility],[address] [place] [address] 95174 Protein [Mass/Vol] 8.8 g/dL High 6.4 - 8.2 [facility] Comment on above: Performed By: #### 2 58097 ####[facility],[address] [place] [address] 68362 Sodium [Moles/Vol] 124 mmol/L Low 136 - 145 [facility] Comment on above: Performed By: #### 2 29954 ####[facility],[address] [place] [address] 05685 Urea nitrogen [Mass/Vol] 19 mg/dL High 7 - 18 [facility] Comment on above: Performed By: #### 2 16962 ####[facility],[address] [place] [address] 12851 LIPASEon 09-01-2024 ERROR DUE TO AUTO HAYDEE Normal [facility] Comment on above: Performed By: #### 2 91197 ####[facility],[address] [place] [address] 85278 LIPASE Normal 15.0 - 78.0 [facility] Comment on above: Result Comment: CORRECTED REPORT319.0*PLEASE NOTE THAT RANGES FOR LIPASE HAVE CHANGED OF 04/12/23 DUE TO AN ASSAYUPDATE BY THE HAND BINDER STRIPPER.THE NEW ASSAY RANGE IS 6-250 U/L, WITH A REFERENCERANGE OF 16-77 U/L. FOLLOWING RESULTS REPORTED IN ERROR LP] LIPASE >250.0 H <-- *Previously reported in error 09/01/24.1329.LMM. .DIM1. .3040-3 . Performed By: #### 2 19702 ####[place] [address] TROPONINon 09-01-2024 HS TROPONIN <4.0 Normal 0.0 - 51.4 [facility] Comment on above: Performed By: #### 2 74776 ####[place] [id number] CBC + DIFFon 08-24-2024 Baso # 0.03 x10EE3/UL Normal 0.00 - 0.10 [facility] Comment on above: Performed By: #### 2 70570 ####[place] [id number] Basophils/100 WBC (Bld) 0.3 % Normal 0.0 - 2.0 [facility] Comment on above: Performed By: #### 2 71594 ####[place] [address] CBC + DIFF Normal [facility] Comment on above: Result Comment: CBC- COMPLETE BLOOD COUNT Performed By: #### 2 33094 ####[place] [address] EO # 0.19 x10EE3/UL Normal 0.00 - 0.50 [facility] Comment on above: Performed By: #### 2 36688 ####[facility],[address] [place] [address] 85689 Eosinophils/100 WBC (Bld) 1.8 % Normal 0.0 - 7.0 [facility] Comment on above: Performed By: #### 2 77940 ####[facility],[address] [place] [address] Erythrocyte distribution width (RBC) [Ratio] 13.8 % Normal 12.0 - 15.6 [facility] Comment on above: Performed By: #### 2 93403 ####[facility],[address] [place] [address] Hematocrit (Bld) [Volume fraction] 49.6 % High 34.0 - 46.0 [facility] Comment on above: Performed By: #### 2 08055 ####[facility],[address] [place] [address] Hemoglobin (Bld) [Mass/Vol] 16.6 g/dL High 12.0 - 16.0 [facility] Comment on above: Performed By: #### 2 41536 ####[facility],[address] [place] [address] 85741 Lymph # 1.42 x10EE3/UL Normal 0.80 - 2.80 [facility] Comment on above: Performed By: #### 2 11447 ####[facility],[address] [place] [address] 59532 Lymphocytes/100 WBC (Bld) 13.4 % Low 20.0 - 45.0 [facility] Comment on above: Performed By: #### 2 74352 ####[facility],[address] [place], [place] [id number] MANUAL DIFF N/A Normal [facility] Comment on above: Performed By: #### 2 25019 ####[facility],[address] [place] [address] MCH (RBC) [Entitic mass] 29 pg Normal 27 - 33 [facility] Comment on above: Performed By: #### 2 92154 ####[facility],[address] [place] [address] MCHC 34 X10 3 Normal 32 - 36 [facility] Comment on above: Performed By: #### 2 62052 ####[facility],[address] [place] [address] MCV (RBC) [Entitic vol] 86 fL Normal 80 - 99 [facility] Comment on above: Performed By: #### 2 01511 ####[facility],[address] [place] [address] [place] # 0.62 x10EE3/UL Normal 0.20 - 1.00 [facility] Comment on above: Performed By: #### 2 21133 ####[facility],[address] [place] [address] MONOS % 5.9 % Normal 0.0 - 10.0 [facility] Comment on above: Performed By: #### 2 82278 ####[facility],[address] [place], [place] [id number] Morphology Julian (Bld) [Interp] N/A Normal [facility] Comment on above: Performed By: #### 2 68790 ####[facility],[address] [place] [address] Neut # 8.30 x10EE3/UL High 1.50 - 7.10 [facility] Comment on above: Performed By: #### 2 73567 ####[facility],[address] [place] [address] Neutrophils/100 WBC (Bld) 78.6 % High 46.0 - 76.0 [facility] Comment on above: Performed By: #### 2 26411 ####[facility],[address] [place] [address] 84287 PLATELET 319 x10EE3/UL Normal 150 - 450 [facility] Comment on above: Performed By: #### 2 19309 ####[facility],[address] [place] [address] 00126 Platelet mean volume (Bld) [Entitic vol] 7.6 fL Normal 6.6 - 10.5 [facility] Comment on above: Result Comment: AUTO MATED DIFFERENTIAL Performed By: #### 2 62214 ####[facility],[address] [place] [address] 97549 RBC 5.77 x 10EE6/UL High 4.10 - 5.30 [facility] Comment on above: Performed By: #### 2 98523 ####[facility],[address] [place] [address] 37860 WBC 10.6 x 10EE3/UL Normal 4.5 - 10.8 [facility] Comment on above: Performed By: #### 2 50357 ####[facility],[address] [place] [address] 92192 CMP with eGFRon 08-24-2024 AGE 74 years Normal [facility] Comment on above: Performed By: #### 2 47038 ####[facility],[address] [place] [address] 30385 Albumin [Mass/Vol] 4.6 g/dL Normal 3.4 - 5.0 [facility] Comment on above: Performed By: #### 2 02977 ####[facility],[address] [place] [address] 36901 Albumin/Globulin [Mass ratio] 1.0 {ratio} Normal 0.9 - 1.6 [facility] Comment on above: Performed By: #### 2 23497 ####[facility],[address] [place] [address] 53964 ALK PHOS 116 U/L Normal 46 - 116 [facility] Comment on above: Performed By: #### 2 60011 ####[facility],[address] [place] [address] 02000 ALT [Catalytic activity/Vol] 25 U/L Normal 16 - 63 [facility] Comment on above: Performed By: #### 2 84963 ####[facility],[address] [place] [address] 18834 Anion gap [Moles/Vol] 18 mmol/L Normal 10 - 20 [facility] Comment on above: Performed By: #### 2 50121 ####[facility],[address] [place] [address] 14318 AST [Catalytic activity/Vol] 26 U/L Normal 13 - 39 [facility] Comment on above: Performed By: #### 2 31784 ####[facility],[address] [place] [address] 97990 B/C RATIO 11 ratio Normal 0 - 30 [facility] Comment on above: Performed By: #### 2 93734 ####[facility],[address] [place] [address] 07822 Bilirubin [Mass/Vol] 0.5 mg/dL Normal 0.2 - 1.0 [facility] Comment on above: Performed By: #### 2 12222 ####[facility],[address] [place] [address] 03988 Calcium [Mass/Vol] 10.7 mg/dL High 8.5 - 10.1 [facility] Comment on above: Performed By: #### 2 50034 ####[facility],[address] [place] [address] 71226 Chloride [Moles/Vol] 98 mmol/L Normal 98 - 107 [facility] Comment on above: Performed By: #### 2 53159 ####[facility],[address] [place] [address] 10252 CMP with eGFR Normal [facility] Comment on above: Result Comment: COMP REHENSIVE METABOLIC PANEL Performed By: #### 2 55330 ####[facility],[address] [place] [address] 33498 CO2 [Moles/Vol] 25.7 mmol/L Normal 21.0 - 32.0 [facility] Comment on above: Performed By: #### 2 94493 ####[facility],[address] [place] [address] 58084 Creatinine [Mass/Vol] 1.47 mg/dL High 0.55 - 1.02 [facility] Comment on above: Performed By: #### 2 23520 ####[facility],[address] [place] [address] 86286 eGFR 35 ML/MINUTE Low 60 - 999 [facility] Comment on above: Performed By: #### 2 99474 ####[facility],[address] [place] [address] 49380 eGFR(AA) 42 ML/MINUTE Low 60 - 999 [facility] Comment on above: Result Comment: ACCO RDING TO THE NATIONAL KIDNEY DISEASE EDUCATION PROGRAM(NKDE), A NORMAL eGFRIS A VALUE GREATER THAN OR EQUAL TO 60 ML/MIN/1.73 SQ METERS.CHRONIC KIDNEY DISEASE: <60mL/MIN/1.73 SQ METERSKIDNEY FAILURE: <15mL/MIN/1.73 SQ METERSTHIS TEST SHOULD ONLY BE USED FOR PATIENTS 18 YEARS OF AGE AND OLDER. Performed By: #### 2 77943 ####[facility],[address] [place] [address] 64473 Globulin (S) [Mass/Vol] 4.6 g/dL High 1.5 - 3.8 [facility] Comment on above: Performed By: #### 2 50597 ####[facility],[address] [place] [address] 32946 Glucose [Mass/Vol] 126 mg/dL High 74 - 106 [facility] Comment on above: Performed By: #### 2 11473 ####[facility],[address] [place] [address] 10934 Potassium [Moles/Vol] 4.2 mmol/L Normal 3.5 - 5.1 [facility] Comment on above: Performed By: #### 2 42754 ####[facility],[address] [place] [address] 70554 Protein [Mass/Vol] 9.2 g/dL High 6.4 - 8.2 [facility] Comment on above: Performed By: #### 2 06822 ####[facility],[address] [place] [address] 66472 Sodium [Moles/Vol] 137 mmol/L Normal 136 - 145 [facility] Comment on above: Performed By: #### 2 48793 ####[facility],[address] [place] [address] 77692 Urea nitrogen [Mass/Vol] 16 mg/dL Normal 7 - 18 [facility] Comment on above: Performed By: #### 2 89560 ####[facility],[address] [place] [address] 77385 ED MED ADMINISTRATION DETAIL on 08-24-2024 ED MED ADMINISTRATION DETAIL Normal [facility] ED NURSES CLINICAL NOTEon ED NURSES CLINICAL NOTE Normal [facility] ED ORDER SHEET (CPOE ONLY)on 08-24-2024 ED ORDER SHEET (CPOE ONLY) Normal [facility] ED PHYSICIAN CLINICAL REPORT on 08-24-2024 ED PHYSICIAN CLINICAL REPORT Normal [facility] ED SUPER BILLon 08-24-2024 ED SUPER BILL Normal [facility] ED VISIT SUMMARYon ED VISIT SUMMARY Normal [facility] ED VITALS FLOW SHEETon 08-24 ED VITALS FLOW SHEET Normal [facility] BMP with eGFRon 08-19-2024 AGE 74 years Normal [facility] Comment on above: Performed By: #### 2 31901 ####[facility],[address] [place] [address] 16955 Anion gap [Moles/Vol] 10 mmol/L Normal 10 - 20 [facility] Comment on above: Performed By: #### 2 70919 ####[facility],[address] [place] [address] 13707 BMP with eGFR Normal [facility] Comment on above: Result Comment: BASI C METABOLIC PANEL Performed By: #### 2 41716 ####[facility],[address] [place] [address] 13356 Calcium [Mass/Vol] 9.6 mg/dL Normal 8.5 - 10.1 [facility] Comment on above: Performed By: #### 2 15462 ####[facility],[address] [place] [address] 52760 Chloride [Moles/Vol] 104 mmol/L Normal 98 - 107 [facility] Comment on above: Performed By: #### 2 74212 ####[facility],[address] [place] [address] 23512 CO2 [Moles/Vol] 31.4 mmol/L Normal 21.0 - 32.0 [facility] Comment on above: Performed By: #### 2 11744 ####[facility],[address] [place] [address] 61417 Creatinine [Mass/Vol] 1.07 mg/dL High 0.55 - 1.02 [facility] Comment on above: Performed By: #### 2 89670 ####[facility],[address] [place] [address] 35604 eGFR 50 ML/MINUTE Low 60 - 999 [facility] Comment on above: Performed By: #### 2 01821 ####[facility],[address] [place] [address] 30400 GFR/1.73 sq M.predicted among non-blacks MDRD (S/P/Bld) [Vol rate/Area] mL/min/{1.73_m2} Normal 60 - 999 [facility] Comment on above: Result Comment: ACCO RDING TO THE NATIONAL KIDNEY DISEASE EDUCATION PROGRAM(NKDE), A NORMAL eGFRIS A VALUE GREATER THAN OR EQUAL TO 60 ML/MIN/1.73 SQ METERS.CHRONIC KIDNEY DISEASE: <60mL/MIN/1.73 SQ METERSKIDNEY FAILURE: <15mL/MIN/1.73 SQ METERSTHIS TEST SHOULD ONLY BE USED FOR PATIENTS 18 YEARS OF AGE AND OLDER. Performed By: #### 2 01845 ####[address] [address] Glucose [Mass/Vol] 90 mg/dL Normal 74 - 106 [facility] Comment on above: Performed By: #### 2 00075 ####[address] [address] Potassium [Moles/Vol] 4.3 mmol/L Normal 3.5 - 5.1 [facility] Comment on above: Performed By: #### 2 08861 ####[facility],[address] [place] [address] 42929 Sodium [Moles/Vol] 141 mmol/L Normal 136 - 145 [facility] Comment on above: Performed By: #### 2 98485 ####[address] 33972 Urea nitrogen [Mass/Vol] 15 mg/dL Normal 7 - 18 [facility] Comment on above: Performed By: #### 2 55400 ####[address] [address]79 CBC + DIFFon 08-18-2024 Baso # 0.02 x10EE3/UL Normal 0.00 - 0.10 [facility] Comment on above: Performed By: #### 2 26388 ####[address] [address]163 Basophils/100 WBC (Bld) 0.3 % Normal 0.0 - 2.0 [facility] Comment on above: Performed By: #### 2 96171 ####[facility],[address] [place] [address] 11989 CBC + DIFF Normal [facility] Comment on above: Result Comment: CBC- COMPLETE BLOOD COUNT Performed By: #### 2 14755 ####[facility],[address] [place] [address] 38191 EO # 0.10 x10EE3/UL Normal 0.00 - 0.50 [facility] Comment on above: Performed By: #### 2 33535 ####[facility],[address] [place] [address] 00966 Eosinophils/100 WBC (Bld) 1.1 % Normal 0.0 - 7.0 [facility] Comment on above: Performed By: #### 2 74072 ####[facility],[address] [place] [address] 30930 Erythrocyte distribution width (RBC) [Ratio] 13.7 % Normal 12.0 - 15.6 [facility] Comment on above: Performed By: #### 2 79485 ####[facility],[address] [place] [address] 78288 Hematocrit (Bld) [Volume fraction] 48.4 % High 34.0 - 46.0 [facility] Comment on above: Performed By: #### 2 44490 ####[facility],[address] [place] [address] 03980 Hemoglobin (Bld) [Mass/Vol] 16.5 g/dL High 12.0 - 16.0 [facility] Comment on above: Performed By: #### 2 77528 ####[facility],[address] [place] [address] 09259 Lymph # 1.33 x10EE3/UL Normal 0.80 - 2.80 [facility] Comment on above: Performed By: #### 2 17622 ####[facility],[address] [place] [address] 71975 Lymphocytes/100 WBC (Bld) 14.0 % Low 20.0 - 45.0 [facility] Comment on above: Performed By: #### 2 53681 ####[facility],[address] [place] [address] MANUAL DIFF N/A Normal [facility] Comment on above: Performed By: #### 2 18481 ####[facility],[address] [place] [address] MCH (RBC) [Entitic mass] 29 pg Normal 27 - 33 [facility] Comment on above: Performed By: #### 2 12416 ####[facility],[address] [place] [address] MCHC 34 X10 3 Normal 32 - 36 [facility] Comment on above: Performed By: #### 2 13967 ####[facility],[address] [place] [address] MCV (RBC) [Entitic vol] 86 fL Normal 80 - 99 [facility] Comment on above: Performed By: #### 2 70060 ####[facility],[address] [place] [address] [place] # 0.57 x10EE3/UL Normal 0.20 - 1.00 [facility] Comment on above: Performed By: #### 2 04971 ####[facility],[address] [place] [address] MONOS % 6.1 % Normal 0.0 - 10.0 [facility] Comment on above: Performed By: #### 2 85322 ####[facility],[address] [place], [place] [phone] Morphology Julian (Bld) [Interp] N/A Normal [facility] Comment on above: Performed By: #### 2 11236 ####[facility],[address] [place], [place] [address] Neut # 7.44 x10EE3/UL High 1.50 - 7.10 [facility] Comment on above: Performed By: #### 2 68033 ####[facility],[address] [place] [address] 45558 Neutrophils/100 WBC (Bld) 78.6 % High 46.0 - 76.0 [facility] Comment on above: Performed By: #### 2 57831 ####[facility],[address] [place] [address] 18103 PLATELET 327 x10EE3/UL Normal 150 - 450 [facility] Comment on above: Performed By: #### 2 33381 ####[facility],[address] [place] [address] 03719 Platelet mean volume (Bld) [Entitic vol] 7.9 fL Normal 6.6 - 10.5 [facility] Comment on above: Result Comment: AUTO MATED DIFFERENTIAL Performed By: #### 2 40244 ####[facility],[address] [place] [address] 33274 RBC 5.63 x 10EE6/UL High 4.10 - 5.30 [facility] Comment on above: Performed By: #### 2 03066 ####[facility],[address] [place] [address] 01545 WBC 9.5 x 10EE3/UL Normal 4.5 - 10.8 [facility] Comment on above: Performed By: #### 2 85175 ####[facility],[address] [place] [address] 05973 CMP with eGFRon 08-18-2024 AGE 74 years Normal [facility] Comment on above: Performed By: #### 2 97421 ####[facility],[address] [place] [address] 34854 Albumin [Mass/Vol] 4.8 g/dL Normal 3.4 - 5.0 [facility] Comment on above: Performed By: #### 2 97472 ####[facility],[address] [place] [address] 39940 Albumin/Globulin [Mass ratio] 1.0 {ratio} Normal 0.9 - 1.6 [facility] Comment on above: Performed By: #### 2 52175 ####[facility],[address] [place] [address] 54102 ALK PHOS 112 U/L Normal 46 - 116 [facility] Comment on above: Performed By: #### 2 74174 ####[facility],[address] [place] [address] 71705 ALT [Catalytic activity/Vol] 25 U/L Normal 16 - 63 [facility] Comment on above: Performed By: #### 2 31896 ####[facility],[address] [place] [address] 66575 Anion gap [Moles/Vol] 18 mmol/L Normal 10 - 20 [facility] Comment on above: Performed By: #### 2 67771 ####[facility],[address] [place] [address] 61243 AST [Catalytic activity/Vol] 22 U/L Normal 13 - 39 [facility] Comment on above: Performed By: #### 2 23753 ####[facility],[address] [place] [address] 97034 B/C RATIO 9 ratio Normal 0 - 30 [facility] Comment on above: Performed By: #### 2 23094 ####[facility],[address] [place] [address] 53218 Bilirubin [Mass/Vol] 0.6 mg/dL Normal 0.2 - 1.0 [facility] Comment on above: Performed By: #### 2 11491 ####[facility],[address] [place] [address] 64916 Calcium [Mass/Vol] 11.2 mg/dL High 8.5 - 10.1 [facility] Comment on above: Performed By: #### 2 24854 ####[facility],[address] [place] [address] 22634 Chloride [Moles/Vol] 97 mmol/L Low 98 - 107 [facility] Comment on above: Performed By: #### 2 10409 ####[facility],[address] [place] [address] 80369 CMP with eGFR Normal [facility] Comment on above: Result Comment: COMP REHENSIVE METABOLIC PANEL Performed By: #### 2 45010 ####[facility],[address] [place] [address] CO2 [Moles/Vol] 29.8 mmol/L Normal 21.0 - 32.0 [facility] Comment on above: Performed By: #### 2 62681 ####[facility],[address] [place] [address] Creatinine [Mass/Vol] 2.29 mg/dL High 0.55 - 1.02 [facility] Comment on above: Performed By: #### 2 11732 ####[facility],[address] [place] [address] eGFR 21 ML/MINUTE Low 60 - 999 [facility] Comment on above: Performed By: #### 2 89102 ####[facility],[address] [place] [address] eGFR(AA) 25 ML/MINUTE Low 60 - 999 [facility] Comment on above: Result Comment: ACCO RDING TO THE NATIONAL KIDNEY DISEASE EDUCATION PROGRAM(NKDE), A NORMAL eGFRIS A VALUE GREATER THAN OR EQUAL TO 60 ML/MIN/1.73 SQ METERS.CHRONIC KIDNEY DISEASE: <60mL/MIN/1.73 SQ METERSKIDNEY FAILURE: <15mL/MIN/1.73 SQ METERSTHIS TEST SHOULD ONLY BE USED FOR PATIENTS 18 YEARS OF AGE AND OLDER. Performed By: #### 2 31638 ####[facility],[address] [place] [address] Globulin (S) [Mass/Vol] 4.6 g/dL High 1.5 - 3.8 [facility] Comment on above: Performed By: #### 2 43364 ####[facility],[address] [place] [address] 00650 Glucose [Mass/Vol] 179 mg/dL High 74 - 106 [facility] Comment on above: Performed By: #### 2 19764 ####[facility],[address] [place] [address] 95805 Potassium [Moles/Vol] 3.4 mmol/L Low 3.5 - 5.1 [facility] Comment on above: Performed By: #### 2 50174 ####[facility],[address] [place] [address] 06492 Protein [Mass/Vol] 9.4 g/dL High 6.4 - 8.2 [facility] Comment on above: Performed By: #### 2 51533 ####[facility],[address] [place] [address] 68200 Sodium [Moles/Vol] 141 mmol/L Normal 136 - 145 [facility] Comment on above: Performed By: #### 2 11227 ####[facility],[address] [place] [address] 49728 Urea nitrogen [Mass/Vol] 20 mg/dL High 7 - 18 [facility] Comment on above: Performed By: #### 2 82748 ####[facility],[address] [place] [address] ABDOMEN/PELVIS WOon 08-18 CT ABDOMEN/PELVIS WO Normal [facility] ED MED ADMINISTRATION DETAIL on 08-18-2024 ED MED ADMINISTRATION DETAIL Normal [facility] ED NURSES CLINICAL NOTEon ED NURSES CLINICAL NOTE Normal [facility] ED ORDER SHEET (CPOE ONLY)on 08-18-2024 ED ORDER SHEET (CPOE ONLY) Normal [facility] ED PHYSICIAN CLINICAL REPORT on 08-18-2024 ED PHYSICIAN CLINICAL REPORT Normal [facility] ED SUPER BILLon 08-18-2024 ED SUPER BILL Normal [facility] ED VISIT SUMMARYon ED VISIT SUMMARY Normal [facility] ED VITALS FLOW SHEETon 08-18 ED VITALS FLOW SHEET Normal [facility] LIPASEon 08-18-2024 ERROR DUE TO TECH ERROR Normal [facility] Comment on above: Performed By: #### 2 78970 ####[facility],[address] [place] [address] 79170 LIPASE Normal 15.0 - 78.0 [facility] Comment on above: Result Comment: CORRECTED REPORT138.0*PLEASE NOTE THAT RANGES FOR LIPASE HAVE CHANGED OF 04/12/23 DUE TO AN ASSAYUPDATE BY THE HAND BINDER STRIPPER.THE NEW ASSAY RANGE IS 6-250 U/L, WITH A REFERENCERANGE OF 16-77 U/L. FOLLOWING RESULTS REPORTED IN ERROR LP] LIPASE 180.0 H <-- *Previously reported in error 08/18/24.0355.ALA. .DIM2. .3040-3 . Performed By: #### 2 60679 ####[address] [address] CBC + DIFFon 07-29-2024 Baso # 0.03 x10EE3/UL Normal 0.00 - 0.10 [facility] Comment on above: Performed By: #### 2 58812 ####[address] [address] Basophils/100 WBC (Bld) 0.4 % Normal 0.0 - 2.0 [facility] Comment on above: Performed By: #### 2 79922 ####[facility],[address] [place] [address] CBC + DIFF Normal [facility] Comment on above: Result Comment: CBC- COMPLETE BLOOD COUNT Performed By: #### 2 45913 ####[facility],[address] [place] [address] EO # 0.11 x10EE3/UL Normal 0.00 - 0.50 [facility] Comment on above: Performed By: #### 2 09678 ####[facility],[address] [place] [address] Eosinophils/100 WBC (Bld) 1.4 % Normal 0.0 - 7.0 [facility] Comment on above: Performed By: #### 2 19229 ####[facility],[address] [place] [address] Erythrocyte distribution width (RBC) [Ratio] 13.8 % Normal 12.0 - 15.6 [facility] Comment on above: Performed By: #### 2 78523 ####[facility],[address] [place] [address] Hematocrit (Bld) [Volume fraction] 48.8 % High 34.0 - 46.0 [facility] Comment on above: Performed By: #### 2 45805 ####[facility],[address] [place] [address] Hemoglobin (Bld) [Mass/Vol] 16.4 g/dL High 12.0 - 16.0 [facility] Comment on above: Performed By: #### 2 16979 ####[facility],[address] [place] [address] Lymph # 1.11 x10EE3/UL Normal 0.80 - 2.80 [facility] Comment on above: Performed By: #### 2 22383 ####[facility],[address] [place], [place] [address] Lymphocytes/100 WBC (Bld) 14.1 % Low 20.0 - 45.0 [facility] Comment on above: Performed By: #### 2 00056 ####[facility],[address] [place] [address] MANUAL DIFF N/A Normal [facility] Comment on above: Performed By: #### 2 52481 ####[facility],[address] [place] [address] MCH (RBC) [Entitic mass] 29 pg Normal 27 - 33 [facility] Comment on above: Performed By: #### 2 41723 ####[facility],[address] [place] [address] MCHC 34 X10 3 Normal 32 - 36 [facility] Comment on above: Performed By: #### 2 84512 ####[facility],[address] [place] [address] MCV (RBC) [Entitic vol] 85 fL Normal 80 - 99 [facility] Comment on above: Performed By: #### 2 93047 ####[facility],[address] [place] [address] [place] # 0.59 x10EE3/UL Normal 0.20 - 1.00 [facility] Comment on above: Performed By: #### 2 94090 ####[facility],[address] [place] [address] MONOS % 7.4 % Normal 0.0 - 10.0 [facility] Comment on above: Performed By: #### 2 72724 ####[facility],[address] [place] [address] Morphology Julian (Bld) [Interp] N/A Normal [facility] Comment on above: Performed By: #### 2 71584 ####[facility],[address] [place] [address] Neut # 6.05 x10EE3/UL Normal 1.50 - 7.10 [facility] Comment on above: Performed By: #### 2 09955 ####[facility],[address] [place] [address] 31119 Neutrophils/100 WBC (Bld) 76.7 % High 46.0 - 76.0 [facility] Comment on above: Performed By: #### 2 46318 ####[facility],[address] [place] [address] 34265 PLATELET 354 x10EE3/UL Normal 150 - 450 [facility] Comment on above: Performed By: #### 2 81543 ####[facility],[address] [place] [address] 85314 Platelet mean volume (Bld) [Entitic vol] 7.6 fL Normal 6.6 - 10.5 [facility] Comment on above: Result Comment: AUTO MATED DIFFERENTIAL Performed By: #### 2 09776 ####[facility],[address] [place] [address] 55554 RBC 5.76 x 10EE6/UL High 4.10 - 5.30 [facility] Comment on above: Performed By: #### 2 42053 ####[facility],[address] [place] [address] 16040 WBC 7.9 x 10EE3/UL Normal 4.5 - 10.8 [facility] Comment on above: Performed By: #### 2 68269 ####[facility],[address] [place] [address] 46872 CMP with eGFRon 07-29-2024 AGE 74 years Normal [facility] Comment on above: Performed By: #### 2 94483 ####[facility],[address] [place] [address] 89749 Albumin [Mass/Vol] 4.8 g/dL Normal 3.4 - 5.0 [facility] Comment on above: Performed By: #### 2 58872 ####[facility],[address] [place] [address] 31633 Albumin/Globulin [Mass ratio] 1.1 {ratio} Normal 0.9 - 1.6 [facility] Comment on above: Performed By: #### 2 95508 ####[facility],[address] [place] [address] 39894 ALK PHOS 107 U/L Normal 46 - 116 [facility] Comment on above: Performed By: #### 2 67205 ####[facility],[address] [place] [address] 68713 ALT [Catalytic activity/Vol] 28 U/L Normal 16 - 63 [facility] Comment on above: Performed By: #### 2 03808 ####[facility],[address] [place] [address] 57648 Anion gap [Moles/Vol] 18 mmol/L Normal 10 - 20 [facility] Comment on above: Performed By: #### 2 43958 ####[facility],[address] [place] [address] 97406 AST [Catalytic activity/Vol] 21 U/L Normal 13 - 39 [facility] Comment on above: Performed By: #### 2 94891 ####[facility],[address] [place] [address] 55543 B/C RATIO 11 ratio Normal 0 - 30 [facility] Comment on above: Performed By: #### 2 47069 ####[facility],[address] [place] [address] 66175 Bilirubin [Mass/Vol] 0.6 mg/dL Normal 0.2 - 1.0 [facility] Comment on above: Performed By: #### 2 26062 ####[facility],[address] [place] [address] 05108 Calcium [Mass/Vol] 10.6 mg/dL High 8.5 - 10.1 [facility] Comment on above: Performed By: #### 2 97952 ####[facility],[address] [place] [address] 65256 Chloride [Moles/Vol] 99 mmol/L Normal 98 - 107 [facility] Comment on above: Performed By: #### 2 92203 ####[facility],[address] [place] [address] 52657 CMP with eGFR Normal [facility] Comment on above: Result Comment: COMP REHENSIVE METABOLIC PANEL Performed By: #### 2 87097 ####[facility],[address] [place] [address] 97468 CO2 [Moles/Vol] 27.1 mmol/L Normal 21.0 - 32.0 [facility] Comment on above: Performed By: #### 2 64646 ####[facility],[address] [place] [address] Creatinine [Mass/Vol] 1.69 mg/dL High 0.55 - 1.02 [facility] Comment on above: Performed By: #### 2 77613 ####[facility],[address] [place] [address] eGFR 30 ML/MINUTE Low 60 - 999 [facility] Comment on above: Performed By: #### 2 63001 ####[facility],[address] [place] [address] 54976 eGFR(AA) 36 ML/MINUTE Low 60 - 999 [facility] Comment on above: Result Comment: ACCO RDING TO THE NATIONAL KIDNEY DISEASE EDUCATION PROGRAM(NKDE), A NORMAL eGFRIS A VALUE GREATER THAN OR EQUAL TO 60 ML/MIN/1.73 SQ METERS.CHRONIC KIDNEY DISEASE: <60mL/MIN/1.73 SQ METERSKIDNEY FAILURE: <15mL/MIN/1.73 SQ METERSTHIS TEST SHOULD ONLY BE USED FOR PATIENTS 18 YEARS OF AGE AND OLDER. Performed By: #### 2 63102 ####[facility],[address] [place], [place] [address] Globulin (S) [Mass/Vol] 4.5 g/dL High 1.5 - 3.8 [facility] Comment on above: Performed By: #### 2 04322 ####[address],[place] [address] Glucose [Mass/Vol] 145 mg/dL High 74 - 106 [facility] Comment on above: Performed By: #### 2 47928 ####[facility],[address] [place] [address] 50832 Potassium [Moles/Vol] 3.6 mmol/L Normal 3.5 - 5.1 [facility] Comment on above: Performed By: #### 2 31172 ####[facility],[address] [place] [address] 75540 Protein [Mass/Vol] 9.3 g/dL High 6.4 - 8.2 [facility] Comment on above: Performed By: #### 2 36547 ####[facility],[address] [place] [address] 64161 Sodium [Moles/Vol] 140 mmol/L Normal 136 - 145 [facility] Comment on above: Performed By: #### 2 59703 ####[facility],[address] [place] [address] 84221 Urea nitrogen [Mass/Vol] 19 mg/dL High 7 - 18 [facility] Comment on above: Performed By: #### 2 24413 ####[facility],[address] [place] [address] 60148 ED MED ADMINISTRATION DETAIL on 07-29-2024 ED MED ADMINISTRATION DETAIL Normal [facility] ED NURSES CLINICAL NOTEon ED NURSES CLINICAL NOTE Normal [facility] ED ORDER SHEET (CPOE ONLY)on 07-29-2024 ED ORDER SHEET (CPOE ONLY) Normal [facility] ED PHYSICIAN CLINICAL REPORT on 07-29-2024 ED PHYSICIAN CLINICAL REPORT Normal [facility] ED SUPER BILLon 07-29-2024 ED SUPER BILL Normal [facility] ED VISIT SUMMARYon ED VISIT SUMMARY Normal [facility] ED VITALS FLOW SHEETon 07-29 ED VITALS FLOW SHEET Normal [facility] C-REACTIVE PROTEINon 025 CRP 0.18 mg/dl Normal 0.00 - 0.90 [facility] Comment on above: Performed By: #### 2 80721 ####[facility],[address] [place] [address] 70193 CBC + DIFFon 07-20-2024 Baso # 0.04 x10EE3/UL Normal 0.00 - 0.10 [facility] Comment on above: Performed By: #### 2 71811 ####[facility],[address] [place] [address] 21152 Basophils/100 WBC (Bld) 0.3 % Normal 0.0 - 2.0 [facility] Comment on above: Performed By: #### 2 37224 ####[facility],[address] [place] [address] CBC + DIFF Normal [facility] Comment on above: Result Comment: CBC- COMPLETE BLOOD COUNT Performed By: #### 2 45330 ####[facility],[address] [place] [address] 01998 EO # 0.05 x10EE3/UL Normal 0.00 - 0.50 [facility] Comment on above: Performed By: #### 2 89018 ####[facility],[address] [place] [address] 09467 Eosinophils/100 WBC (Bld) 0.4 % Normal 0.0 - 7.0 [facility] Comment on above: Performed By: #### 2 14903 ####[facility],[address] [place] [address] 61575 Erythrocyte distribution width (RBC) [Ratio] 13.8 % Normal 12.0 - 15.6 [facility] Comment on above: Performed By: #### 2 17015 ####[facility],[address] [place] [address] 78717 Hematocrit (Bld) [Volume fraction] 46.7 % High 34.0 - 46.0 [facility] Comment on above: Performed By: #### 2 77972 ####[facility],[address] [place] [address] 48784 Hemoglobin (Bld) [Mass/Vol] 16.1 g/dL High 12.0 - 16.0 [facility] Comment on above: Performed By: #### 2 48011 ####[facility],[address] [place] [address] Lymph # 0.89 x10EE3/UL Normal 0.80 - 2.80 [facility] Comment on above: Performed By: #### 2 62550 ####[facility],[address] [place] [address] Lymphocytes/100 WBC (Bld) 7.1 % Low 20.0 - 45.0 [facility] Comment on above: Performed By: #### 2 38776 ####[facility],[address] [place], [place] [address] MANUAL DIFF N/A Normal [facility] Comment on above: Performed By: #### 2 42180 ####[facility],[address] [place] [address] MCH (RBC) [Entitic mass] 30 pg Normal 27 - 33 [facility] Comment on above: Performed By: #### 2 40199 ####[facility],[address] [place] [address] 33490 MCHC 34 X10 3 Normal 32 - 36 [facility] Comment on above: Performed By: #### 2 45084 ####[facility],[address] [place] [address] 18760 MCV (RBC) [Entitic vol] 86 fL Normal 80 - 99 [facility] Comment on above: Performed By: #### 2 60244 ####[facility],[address] [place] [address] 36231 [place] # 0.68 x10EE3/UL Normal 0.20 - 1.00 [facility] Comment on above: Performed By: #### 2 49812 ####[facility],[address] [place] [address] 09357 MONOS % 5.4 % Normal 0.0 - 10.0 [facility] Comment on above: Performed By: #### 2 94119 ####[facility],[address] [place] [address] 69512 Morphology Julian (Bld) [Interp] N/A Normal [facility] Comment on above: Performed By: #### 2 03954 ####[facility],[address] [place] [address] 29684 Neut # 10.88 x10EE3/UL High 1.50 - 7.10 [facility] Comment on above: Performed By: #### 2 25466 ####[facility],[address] [place] [address] 57009 Neutrophils/100 WBC (Bld) 86.8 % High 46.0 - 76.0 [facility] Comment on above: Performed By: #### 2 66075 ####[facility],[address] [place] [address] 35935 PLATELET 332 x10EE3/UL Normal 150 - 450 [facility] Comment on above: Performed By: #### 2 21220 ####[facility],[address] [place] [address] 54785 Platelet mean volume (Bld) [Entitic vol] 7.7 fL Normal 6.6 - 10.5 [facility] Comment on above: Result Comment: AUTO MATED DIFFERENTIAL Performed By: #### 2 46493 ####[facility],[address] [place] [address] 27180 RBC 5.43 x 10EE6/UL High 4.10 - 5.30 [facility] Comment on above: Performed By: #### 2 33658 ####[facility],[address] [place] [address] 99001 WBC 12.5 x 10EE3/UL High 4.5 - 10.8 [facility] Comment on above: Performed By: #### 2 37123 ####[facility],[address] [place] [address] 15416 CMP with eGFRon 07-20-2024 AGE 74 years Normal [facility] Comment on above: Performed By: #### 2 71904 ####[facility],[address] [place], [place] [address] Albumin [Mass/Vol] 4.4 g/dL Normal 3.4 - 5.0 [facility] Comment on above: Performed By: #### 2 67242 ####[facility],[address] [place] [address] Albumin/Globulin [Mass ratio] 1.0 {ratio} Normal 0.9 - 1.6 [facility] Comment on above: Performed By: #### 2 52642 ####[facility],[address] [place], [place] [address] ALK PHOS 107 U/L Normal 46 - 116 [facility] Comment on above: Performed By: #### 2 64826 ####[facility],[address] [place] [address] 38037 ALT [Catalytic activity/Vol] 24 U/L Normal 16 - 63 [facility] Comment on above: Performed By: #### 2 84994 ####[facility],[address] [place] [address] 45533 Anion gap [Moles/Vol] 22 mmol/L High 10 - 20 [facility] Comment on above: Performed By: #### 2 56195 ####[address] [address] AST [Catalytic activity/Vol] 26 U/L Normal 13 - 39 [facility] Comment on above: Performed By: #### 2 70171 ####[facility],[address] [place] [address] 02699 B/C RATIO 14 ratio Normal 0 - 30 [facility] Comment on above: Performed By: #### 2 42955 ####[facility],[address] [place] [address] 43614 Bilirubin [Mass/Vol] 0.7 mg/dL Normal 0.2 - 1.0 [facility] Comment on above: Performed By: #### 2 61362 ####[facility],[address] [place] [address] 88375 Calcium [Mass/Vol] 9.5 mg/dL Normal 8.5 - 10.1 [facility] Comment on above: Performed By: #### 2 64999 ####[facility],[address] [place] [address] 41281 Chloride [Moles/Vol] 97 mmol/L Low 98 - 107 [facility] Comment on above: Performed By: #### 2 95798 ####[facility],[address] [place], [place] [address] CMP with eGFR Normal [facility] Comment on above: Result Comment: COMP REHENSIVE METABOLIC PANEL Performed By: #### 2 86344 ####[facility],[address] [place] [address] 29808 CO2 [Moles/Vol] 25.1 mmol/L Normal 21.0 - 32.0 [facility] Comment on above: Performed By: #### 2 12395 ####[facility],[address] [place] [address] 33230 Creatinine [Mass/Vol] 1.62 mg/dL High 0.55 - 1.02 [facility] Comment on above: Performed By: #### 2 06086 ####[facility],[address] [place] [address] 18265 eGFR 31 ML/MINUTE Low 60 - 999 [facility] Comment on above: Performed By: #### 2 10509 ####[facility],[address] [place] [address] 57761 eGFR(AA) 38 ML/MINUTE Low 60 - 999 [facility] Comment on above: Result Comment: ACCO RDING TO THE NATIONAL KIDNEY DISEASE EDUCATION PROGRAM(NKDE), A NORMAL eGFRIS A VALUE GREATER THAN OR EQUAL TO 60 ML/MIN/1.73 SQ METERS.CHRONIC KIDNEY DISEASE: <60mL/MIN/1.73 SQ METERSKIDNEY FAILURE: <15mL/MIN/1.73 SQ METERSTHIS TEST SHOULD ONLY BE USED FOR PATIENTS 18 YEARS OF AGE AND OLDER. Performed By: #### 2 26569 ####[facility],[address] [place] [address] 78312 Globulin (S) [Mass/Vol] 4.3 g/dL High 1.5 - 3.8 [facility] Comment on above: Performed By: #### 2 39677 ####[facility],[address] [place] [address] 61521 Glucose [Mass/Vol] 163 mg/dL High 74 - 106 [facility] Comment on above: Performed By: #### 2 95974 ####[facility],[address] [place] [address] 90857 Potassium [Moles/Vol] 3.9 mmol/L Normal 3.5 - 5.1 [facility] Comment on above: Performed By: #### 2 06121 ####[facility],[address] [place] [address] 85757 Protein [Mass/Vol] 8.7 g/dL High 6.4 - 8.2 [facility] Comment on above: Performed By: #### 2 63753 ####[facility],[address] [place] [address] 56463 Sodium [Moles/Vol] 140 mmol/L Normal 136 - 145 [facility] Comment on above: Performed By: #### 2 12489 ####[facility],[address] [place] [address] 69389 Urea nitrogen [Mass/Vol] 23 mg/dL High 7 - 18 [facility] Comment on above: Performed By: #### 2 81565 ####[facility],[address] [place] [address] ED MED ADMINISTRATION DETAIL on 07-20-2024 ED MED ADMINISTRATION DETAIL Normal [facility] ED NURSES CLINICAL NOTEon ED NURSES CLINICAL NOTE Normal [facility] ED ORDER SHEET (CPOE ONLY)on 07-20-2024 ED ORDER SHEET (CPOE ONLY) Normal [facility] ED PHYSICIAN CLINICAL REPORT on 07-20-2024 ED PHYSICIAN CLINICAL REPORT Normal [facility] ED PHYSICIAN DISCHARGE REPOR Ton 07-20-2024 ED PHYSICIAN DISCHARGE REPORT Normal [facility] ED SUPER BILLon 07-20-2024 ED SUPER BILL Normal [facility] ED VISIT SUMMARYon ED VISIT SUMMARY Normal [facility] ED VITALS FLOW SHEETon 07-20 ED VITALS FLOW SHEET Normal [facility] LACTATEon 07-20-2024 Lactate [Moles/Vol] 1.8 mmol/L Normal 0.4 - 2.0 [facility] Comment on above: Performed By: #### 2 32303 ####[facility],[address] [place] [address] Lactate [Moles/Vol] 4.2 mmol/L Critically high 0.4 - 2.0 [facility] Comment on above: Result Comment: { CA LLED TO LILLIE MOSLEY BY LMM @ 1714{ READ BACK BY LILLIE MOSLEY RA 1713 LACTATE 3 HR NOTIFIED TO: _KC 07/20/24.1712.LMM. . . LACTATE 3 HR NOTIFIED BY: _DANIELLE 07/20/24.1712.LMM. . . Performed By: #### 2 88410 ####[facility],[address] [place] [address] 41243 LIPASEon 07-20-2024 Lipase [Catalytic activity/Vol] 52.0 U/L Normal 15.0 - 78.0 [facility] Comment on above: Result Comment: *PLE ASE NOTE THAT RANGES FOR LIPASE HAVE CHANGED OF 04/12/23 DUE TO AN ASSAYUPDATE BY THE HAND BINDER STRIPPER.THE NEW ASSAY RANGE IS 6-250 U/L, WITH A REFERENCERANGE OF 16-77 U/L. Performed By: #### 2 63027 ####[facility],[address] [place] [address] 54371 T3, FREE [CCL]on 07-11-2024 Free T3 [Mass/Vol] 2.9 pg/mL Normal 2.3-4.1 [facility] Comment on above: Result Comment: [facility] [place], [place] [address]OjrmgeAri Ray III, M.D.[id number] Performed By: #### 2 72508 ####[address] [address] T4, FREE [CCL]on 07-11-2024 Free T4 [Mass/Vol] 1.6 ng/dL Normal 0.9-1.7 [facility] Comment on above: Result Comment: [facility] [place], [place] [address]ZcpmixAri Ray III, M.D.[id number] Performed By: #### 2 21116 ####[address] [address]50 CBC + DIFFon 07-10-2024 Baso # 0.03 x10EE3/UL Normal 0.00 - 0.10 [facility] Comment on above: Performed By: #### 2 06576 ####[address] [address]863 Basophils/100 WBC (Bld) 0.8 % Normal 0.0 - 2.0 [facility] Comment on above: Performed By: #### 2 60647 ####[facility],[address] [place] [address] 67563 CBC + DIFF Normal [facility] Comment on above: Result Comment: CBC- COMPLETE BLOOD COUNT Performed By: #### 2 26459 ####[facility],[address] [place] [address] 82540 EO # 0.17 x10EE3/UL Normal 0.00 - 0.50 [facility] Comment on above: Performed By: #### 2 41587 ####[facility],[address] [place] [address] 36956 Eosinophils/100 WBC (Bld) 3.8 % Normal 0.0 - 7.0 [facility] Comment on above: Performed By: #### 2 14618 ####[facility],[address] [place] [address] Erythrocyte distribution width (RBC) [Ratio] 13.9 % Normal 12.0 - 15.6 [facility] Comment on above: Performed By: #### 2 31097 ####[facility],[address] [place], [place] [phone] Hematocrit (Bld) [Volume fraction] 40.6 % Normal 34.0 - 46.0 [facility] Comment on above: Performed By: #### 2 09366 ####[facility],[address] [place], [place] [address] Hemoglobin (Bld) [Mass/Vol] 13.8 g/dL Normal 12.0 - 16.0 [facility] Comment on above: Performed By: #### 2 65691 ####[facility],[address] [place] [address] 91995 Lymph # 1.31 x10EE3/UL Normal 0.80 - 2.80 [facility] Comment on above: Performed By: #### 2 63849 ####[facility],[address],[place] [address] Lymphocytes/100 WBC (Bld) 28.7 % Normal 20.0 - 45.0 [facility] Comment on above: Performed By: #### 2 62175 ####[facility],[address] [place] [address] MANUAL DIFF N/A Normal [facility] Comment on above: Performed By: #### 2 13294 ####[facility],[address] [place] [address] MCH (RBC) [Entitic mass] 30 pg Normal 27 - 33 [facility] Comment on above: Performed By: #### 2 33634 ####[facility],[address] [place] [address] MCHC 34 X10 3 Normal 32 - 36 [facility] Comment on above: Performed By: #### 2 91814 ####[facility],[address] [place] [address] MCV (RBC) [Entitic vol] 87 fL Normal 80 - 99 [facility] Comment on above: Performed By: #### 2 69346 ####[facility],[address] [place] [address] [place] # 0.41 x10EE3/UL Normal 0.20 - 1.00 [facility] Comment on above: Performed By: #### 2 48619 ####[facility],[address] [place] [address] MONOS % 9.0 % Normal 0.0 - 10.0 [facility] Comment on above: Performed By: #### 2 67517 ####[address] [address] Morphology Julian (Bld) [Interp] N/A Normal [facility] Comment on above: Performed By: #### 2 17792 ####[facility],[address] [place] [address] Neut # 2.63 x10EE3/UL Normal 1.50 - 7.10 [facility] Comment on above: Performed By: #### 2 86173 ####[facility],[address] [place] [address] 17974 Neutrophils/100 WBC (Bld) 57.7 % Normal 46.0 - 76.0 [facility] Comment on above: Performed By: #### 2 07442 ####[facility],[address] [place] [address] 79132 PLATELET 254 x10EE3/UL Normal 150 - 450 [facility] Comment on above: Performed By: #### 2 64483 ####[facility],[address] [place], [place] [address] Platelet mean volume (Bld) [Entitic vol] 8.2 fL Normal 6.6 - 10.5 [facility] Comment on above: Result Comment: AUTO MATED DIFFERENTIAL Performed By: #### 2 62898 ####[facility],[address] [place], [place] [address] RBC 4.66 x 10EE6/UL Normal 4.10 - 5.30 [facility] Comment on above: Performed By: #### 2 24922 ####[facility],[address] [place], [place] [address] WBC 4.6 x 10EE3/UL Normal 4.5 - 10.8 [facility] Comment on above: Performed By: #### 2 59642 ####[facility],[address] [place] [address] 96788 CMP with eGFRon 07-10-2024 AGE 74 years Normal [facility] Comment on above: Performed By: #### 2 03496 ####[address] [address] Albumin [Mass/Vol] 3.8 g/dL Normal 3.4 - 5.0 [facility] Comment on above: Performed By: #### 2 59979 ####[facility],[address],[place] [address] Albumin/Globulin [Mass ratio] 1.0 {ratio} Normal 0.9 - 1.6 [facility] Comment on above: Performed By: #### 2 85386 ####[facility],[address] [place] [address] 35876 ALK PHOS 93 U/L Normal 46 - 116 [facility] Comment on above: Performed By: #### 2 59163 ####[facility],[address] [place] [address] 87080 ALT [Catalytic activity/Vol] 19 U/L Normal 16 - 63 [facility] Comment on above: Performed By: #### 2 49198 ####[facility],[address] [place] [address] 26529 Anion gap [Moles/Vol] 12 mmol/L Normal 10 - 20 [facility] Comment on above: Performed By: #### 2 44233 ####[facility],[address] [place] [address] 08573 AST [Catalytic activity/Vol] 16 U/L Normal 13 - 39 [facility] Comment on above: Performed By: #### 2 09853 ####[facility],[address] [place] [address] 12304 B/C RATIO 17 ratio Normal 0 - 30 [facility] Comment on above: Performed By: #### 2 63342 ####[facility],[address] [place] [address] 24488 Bilirubin [Mass/Vol] 0.4 mg/dL Normal 0.2 - 1.0 [facility] Comment on above: Performed By: #### 2 37384 ####[facility],[address] [place] [address] 22820 Calcium [Mass/Vol] 9.2 mg/dL Normal 8.5 - 10.1 [facility] Comment on above: Performed By: #### 2 09194 ####[facility],[address] [place] [address] 15122 Chloride [Moles/Vol] 104 mmol/L Normal 98 - 107 [facility] Comment on above: Performed By: #### 2 33154 ####[facility],[address] [place] [address] 70209 CMP with eGFR Normal [facility] Comment on above: Result Comment: COMP REHENSIVE METABOLIC PANEL Performed By: #### 2 10973 ####[facility],[address] [place] [address] 14209 CO2 [Moles/Vol] 27.9 mmol/L Normal 21.0 - 32.0 [facility] Comment on above: Performed By: #### 2 80966 ####[facility],[address] [place] [address] Creatinine [Mass/Vol] 0.93 mg/dL Normal 0.55 - 1.02 [facility] Comment on above: Performed By: #### 2 40378 ####[facility],[address] [place] [address] 56229 eGFR 59 ML/MINUTE Low 60 - 999 [facility] Comment on above: Performed By: #### 2 15467 ####[facility],[address] [place] [address] 97824 GFR/1.73 sq M.predicted among non-blacks MDRD (S/P/Bld) [Vol rate/Area] mL/min/{1.73_m2} Normal 60 - 999 [facility] Comment on above: Result Comment: ACCO RDING TO THE NATIONAL KIDNEY DISEASE EDUCATION PROGRAM(NKDE), A NORMAL eGFRIS A VALUE GREATER THAN OR EQUAL TO 60 ML/MIN/1.73 SQ METERS.CHRONIC KIDNEY DISEASE: <60mL/MIN/1.73 SQ METERSKIDNEY FAILURE: <15mL/MIN/1.73 SQ METERSTHIS TEST SHOULD ONLY BE USED FOR PATIENTS 18 YEARS OF AGE AND OLDER. Performed By: #### 2 01669 ####[facility],[address] [place] [address] 07865 Globulin (S) [Mass/Vol] 3.7 g/dL Normal 1.5 - 3.8 [facility] Comment on above: Performed By: #### 2 48132 ####[facility],[address] [place] [address] 74135 Glucose [Mass/Vol] 81 mg/dL Normal 74 - 106 [facility] Comment on above: Performed By: #### 2 42022 ####[facility],[address] [place] [address] 81983 Potassium [Moles/Vol] 4.2 mmol/L Normal 3.5 - 5.1 [facility] Comment on above: Performed By: #### 2 74395 ####[facility],[address] [place] [address] 57177 Protein [Mass/Vol] 7.5 g/dL Normal 6.4 - 8.2 [facility] Comment on above: Performed By: #### 2 27272 ####[facility],[address] [place] [address] 81235 Sodium [Moles/Vol] 140 mmol/L Normal 136 - 145 [facility] Comment on above: Performed By: #### 2 84264 ####[facility],[address] [place] [address] 13217 Urea nitrogen [Mass/Vol] 16 mg/dL Normal 7 - 18 [facility] Comment on above: Performed By: #### 2 47534 ####[facility],[address] [place] [address] 13991 LIPID PROFILEon 07-10-2024 Cholesterol [Mass/Vol] 315 mg/dL High 0 - 240 [facility] Comment on above: Performed By: #### 2 36773 ####[facility],[address] [place] [address] 47823 Cholesterol in HDL [Mass/Vol] 65 mg/dL High 40 - 60 [facility] Comment on above: Performed By: #### 2 26668 ####[facility],[address] [place] [address] 28660 Cholesterol in LDL [Mass/Vol] 225 mg/dL High 0 - 129 [facility] Comment on above: Performed By: #### 2 81676 ####[facility],[address] [place] [address] 48863 Cholesterol.total/Dottie sterol in HDL [Mass ratio] 4.8 {ratio} Normal 0.0 - 5.0 [facility] Comment on above: Performed By: #### 2 82748 ####[facility],[address] [place] [address] 23207 Lipid 1996 panel Normal [facility] Comment on above: Result Comment: LIPI D PROFILE Performed By: #### 2 32682 ####[facility],[address] [place] [address] 45603 Triglyceride [Mass/Vol] 127 mg/dL Normal 0 - 150 [facility] Comment on above: Performed By: #### 2 18763 ####[facility],[address] [place] [address] 89667 T3Free SerPl-mCncon 07-11-19 25 Free T3 [Mass/Vol] 2.9 pg/mL Normal 2.3-4.[address] [facility] Comment on above: Order Comment: Speci men Type: BLOOD SPECIMEN Ordering Facility: [facility] Address: [address] [place] [address] Performed By: #### 3 051-0 #### [facility] CLIA [id number] [address] [place] [address] [place] T4 Free SerPl-mCncon 025 Free T4 [Mass/Vol] 1.6 ng/dL Normal 0.9-1.7 [facility] Comment on above: Order Comment: Speci men Type: BLOOD SPECIMEN Ordering Facility: [facility] Address: [address] [place] [address] Performed By: #### 3 024-7 #### [facility] CLIA [id number] [address] [place] [address] [place] TSHon 07-10-2024 TSH Qn 1.29 m[IU]/L Normal 0.35 - 3.74 [facility] Comment on above: Performed By: #### 2 89341 ####[facility],[address] [place] [address] 68990 CBC + DIFFon 07-01-2024 Baso # 0.03 x10EE3/UL Normal 0.00 - 0.10 [facility] Comment on above: Performed By: #### 2 13246 ####[facility],[address] [place] [address] 80995 Basophils/100 WBC (Bld) 0.3 % Normal 0.0 - 2.0 [facility] Comment on above: Performed By: #### 2 74778 ####[facility],[address] [place] [address] 26728 CBC + DIFF Normal [facility] Comment on above: Result Comment: CBC- COMPLETE BLOOD COUNT Performed By: #### 2 25118 ####[facility],[address] [place] [address] 68251 EO # 0.11 x10EE3/UL Normal 0.00 - 0.50 [facility] Comment on above: Performed By: #### 2 06535 ####[facility],[address] [place] [address] 11071 Eosinophils/100 WBC (Bld) 1.3 % Normal 0.0 - 7.0 [facility] Comment on above: Performed By: #### 2 38888 ####[facility],[address] [place] [address] 70085 Erythrocyte distribution width (RBC) [Ratio] 13.4 % Normal 12.0 - 15.6 [facility] Comment on above: Performed By: #### 2 01149 ####[address],[place] [address] Hematocrit (Bld) [Volume fraction] 47.0 % High 34.0 - 46.0 [facility] Comment on above: Performed By: #### 2 69243 ####[facility],[address] [place] [address] 93687 Hemoglobin (Bld) [Mass/Vol] 15.9 g/dL Normal 12.0 - 16.0 [facility] Comment on above: Performed By: #### 2 11894 ####[facility],[address] [place], [place] [address] Lymph # 1.17 x10EE3/UL Normal 0.80 - 2.80 [facility] Comment on above: Performed By: #### 2 91825 ####[facility],[address] [place], [place] [address] Lymphocytes/100 WBC (Bld) 14.0 % Low 20.0 - 45.0 [facility] Comment on above: Performed By: #### 2 27927 ####[facility],[address] [place] [address] 68423 MANUAL DIFF N/A Normal [facility] Comment on above: Performed By: #### 2 74819 ####[facility],[address] [place] [address] 61003 MCH (RBC) [Entitic mass] 29 pg Normal 27 - 33 [facility] Comment on above: Performed By: #### 2 22040 ####[facility],[address] [place] [address] 39829 MCHC 34 X10 3 Normal 32 - 36 [facility] Comment on above: Performed By: #### 2 90274 ####[facility],[address] [place] [address] 13805 MCV (RBC) [Entitic vol] 87 fL Normal 80 - 99 [facility] Comment on above: Performed By: #### 2 16741 ####[facility],[address] [place] [address] 61054 [place] # 0.48 x10EE3/UL Normal 0.20 - 1.00 [facility] Comment on above: Performed By: #### 2 14215 ####[facility],[address] [place] [address] 87666 MONOS % 5.7 % Normal 0.0 - 10.0 [facility] Comment on above: Performed By: #### 2 82851 ####[facility],[address] [place] [address] 30484 Morphology Julian (Bld) [Interp] N/A Normal [facility] Comment on above: Performed By: #### 2 10999 ####[facility],[address] [place] [address] 80284 Neut # 6.61 x10EE3/UL Normal 1.50 - 7.10 [facility] Comment on above: Performed By: #### 2 65882 ####[facility],[address] [place] [address] 17420 Neutrophils/100 WBC (Bld) 78.7 % High 46.0 - 76.0 [facility] Comment on above: Performed By: #### 2 91382 ####[facility],[address] [place] [address] 67105 PLATELET 326 x10EE3/UL Normal 150 - 450 [facility] Comment on above: Performed By: #### 2 89424 ####[facility],[address] [place] [address] 00077 Platelet mean volume (Bld) [Entitic vol] 7.7 fL Normal 6.6 - 10.5 [facility] Comment on above: Result Comment: AUTO MATED DIFFERENTIAL Performed By: #### 2 20613 ####[facility],[address] [place] [address] 89568 RBC 5.43 x 10EE6/UL High 4.10 - 5.30 [facility] Comment on above: Performed By: #### 2 44346 ####[facility],[address] [place] [address] 64712 WBC 8.4 x 10EE3/UL Normal 4.5 - 10.8 [facility] Comment on above: Performed By: #### 2 78396 ####[facility],[address] [place] [address] 88404 CMP with eGFRon 07-01-2024 AGE 74 years Normal [facility] Comment on above: Performed By: #### 2 42731 ####[facility],[address] [place] [address] 49281 Albumin [Mass/Vol] 4.8 g/dL Normal 3.4 - 5.0 [facility] Comment on above: Performed By: #### 2 38869 ####[facility],[address] [place] [address] 92251 Albumin/Globulin [Mass ratio] 1.2 {ratio} Normal 0.9 - 1.6 [facility] Comment on above: Performed By: #### 2 68995 ####[facility],[address] [place] [address] 65379 ALK PHOS 108 U/L Normal 46 - 116 [facility] Comment on above: Performed By: #### 2 86403 ####[facility],[address] [place] [address] 94460 ALT [Catalytic activity/Vol] 24 U/L Normal 16 - 63 [facility] Comment on above: Performed By: #### 2 67572 ####[facility],[address] [place] [address] 60651 Anion gap [Moles/Vol] 17 mmol/L Normal 10 - 20 [facility] Comment on above: Performed By: #### 2 14069 ####[facility],[address] [place] [address] 79836 AST [Catalytic activity/Vol] 22 U/L Normal 13 - 39 [facility] Comment on above: Performed By: #### 2 43870 ####[facility],[address] [place] [address] 39764 B/C RATIO 11 ratio Normal 0 - 30 [facility] Comment on above: Performed By: #### 2 85072 ####[facility],[address] [place] [address] 41167 Bilirubin [Mass/Vol] 0.6 mg/dL Normal 0.2 - 1.0 [facility] Comment on above: Performed By: #### 2 06500 ####[facility],[address] [place] [address] 59417 Calcium [Mass/Vol] 10.3 mg/dL High 8.5 - 10.1 [facility] Comment on above: Performed By: #### 2 37314 ####[facility],[address] [place] [address] 73980 Chloride [Moles/Vol] 96 mmol/L Low 98 - 107 [facility] Comment on above: Performed By: #### 2 08962 ####[facility],[address] [place] [address] 17277 CMP with eGFR Normal [facility] Comment on above: Result Comment: COMP REHENSIVE METABOLIC PANEL Performed By: #### 2 78032 ####[facility],[address] [place] [address] 49031 CO2 [Moles/Vol] 28.5 mmol/L Normal 21.0 - 32.0 [facility] Comment on above: Performed By: #### 2 79724 ####[facility],[address] [place] [address] 78799 Creatinine [Mass/Vol] 1.78 mg/dL High 0.55 - 1.02 [facility] Comment on above: Performed By: #### 2 62462 ####[facility],[address] [place] [address] 15885 eGFR 28 ML/MINUTE Low 60 - 999 [facility] Comment on above: Performed By: #### 2 17479 ####[facility],[address] [place] [address] 25761 eGFR(AA) 34 ML/MINUTE Low 60 - 999 [facility] Comment on above: Result Comment: ACCO RDING TO THE NATIONAL KIDNEY DISEASE EDUCATION PROGRAM(NKDE), A NORMAL eGFRIS A VALUE GREATER THAN OR EQUAL TO 60 ML/MIN/1.73 SQ METERS.CHRONIC KIDNEY DISEASE: <60mL/MIN/1.73 SQ METERSKIDNEY FAILURE: <15mL/MIN/1.73 SQ METERSTHIS TEST SHOULD ONLY BE USED FOR PATIENTS 18 YEARS OF AGE AND OLDER. Performed By: #### 2 85153 ####[facility],[address] [place] [address] 48910 Globulin (S) [Mass/Vol] 4.1 g/dL High 1.5 - 3.8 [facility] Comment on above: Performed By: #### 2 66915 ####[facility],[address] [place] [address] 87859 Glucose [Mass/Vol] 178 mg/dL High 74 - 106 [facility] Comment on above: Performed By: #### 2 42372 ####[facility],[address] [place] [address] 74607 Potassium [Moles/Vol] 3.2 mmol/L Low 3.5 - 5.1 [facility] Comment on above: Performed By: #### 2 31947 ####[facility],[address] [place] [address] 22056 Protein [Mass/Vol] 8.9 g/dL High 6.4 - 8.2 [facility] Comment on above: Performed By: #### 2 83387 ####[facility],[address] [place] [address] 71897 Sodium [Moles/Vol] 138 mmol/L Normal 136 - 145 [facility] Comment on above: Performed By: #### 2 90702 ####[facility],[address] [place], [place] [address] Urea nitrogen [Mass/Vol] 20 mg/dL High 7 - 18 [facility] Comment on above: Performed By: #### 2 17696 ####[facility],[address] [place], [place] [address] ED MED ADMINISTRATION DETAIL on 07-01-2024 ED MED ADMINISTRATION DETAIL Normal [facility] ED NURSES CLINICAL NOTEon ED NURSES CLINICAL NOTE Normal [facility] ED ORDER SHEET (CPOE ONLY)on 07-01-2024 ED ORDER SHEET (CPOE ONLY) Normal [facility] ED PHYSICIAN CLINICAL REPORT on 07-01-2024 ED PHYSICIAN CLINICAL REPORT Normal [facility] ED PHYSICIAN DISCHARGE REPOR Ton 07-01-2024 ED PHYSICIAN DISCHARGE REPORT Normal [facility] ED SUPER BILLon 07-01-2024 ED SUPER BILL Normal [facility] ED VISIT SUMMARYon 5 ED VISIT SUMMARY Normal [facility] ED VITALS FLOW SHEETon 07-01 ED VITALS FLOW SHEET Normal [facility] ED MED ADMINISTRATION DETAIL on 05-26-2024 ED MED ADMINISTRATION DETAIL Normal [facility] ED NURSES CLINICAL NOTEon ED NURSES CLINICAL NOTE Normal [facility] ED ORDER SHEET (CPOE ONLY)on 05-26-2024 ED ORDER SHEET (CPOE ONLY) Normal [facility] ED PHYSICIAN CLINICAL REPORT on 05-26-2024 ED PHYSICIAN CLINICAL REPORT Normal [facility] ED PHYSICIAN DISCHARGE REPOR Ton 05-26-2024 ED PHYSICIAN DISCHARGE REPORT Normal [facility] ED SUPER BILLon 05-26-2024 ED SUPER BILL Normal [facility] ED VISIT SUMMARYon ED VISIT SUMMARY Normal [facility] ED VITALS FLOW SHEETon 05-26 ED VITALS FLOW SHEET Normal [facility] CBC + DIFFon 05-20-2024 Baso # 0.03 x10EE3/UL Normal 0.00 - 0.10 [facility] Comment on above: Performed By: #### 2 47661 ####[facility],[address] [place] [address] Basophils/100 WBC (Bld) 0.4 % Normal 0.0 - 2.0 [facility] Comment on above: Performed By: #### 2 06581 ####[facility],[address] [place] [address] CBC + DIFF Normal [facility] Comment on above: Result Comment: CBC- COMPLETE BLOOD COUNT Performed By: #### 2 51364 ####[facility],[address] [place] [address] EO # 0.05 x10EE3/UL Normal 0.00 - 0.50 [facility] Comment on above: Performed By: #### 2 98173 ####[place] [address] Eosinophils/100 WBC (Bld) 0.7 % Normal 0.0 - 7.0 [facility] Comment on above: Performed By: #### 2 48729 ####[facility],[address] [place] [address] Erythrocyte distribution width (RBC) [Ratio] 13.9 % Normal 12.0 - 15.6 [facility] Comment on above: Performed By: #### 2 95353 ####[facility],[address] [place] [address] Hematocrit (Bld) [Volume fraction] 48.2 % High 34.0 - 46.0 [facility] Comment on above: Performed By: #### 2 86815 ####[facility],[address] [place] [address] Hemoglobin (Bld) [Mass/Vol] 16.3 g/dL High 12.0 - 16.0 [facility] Comment on above: Performed By: #### 2 79142 ####[facility],[address] [place] [address] Lymph # 0.76 x10EE3/UL Low 0.80 - 2.80 [facility] Comment on above: Performed By: #### 2 96486 ####[facility],[address] [place] [address] Lymphocytes/100 WBC (Bld) 10.0 % Low 20.0 - 45.0 [facility] Comment on above: Performed By: #### 2 44104 ####[facility],[address] [place] [address] MANUAL DIFF N/A Normal [facility] Comment on above: Performed By: #### 2 29215 ####[place] [address] MCH (RBC) [Entitic mass] 29 pg Normal 27 - 33 [facility] Comment on above: Performed By: #### 2 99283 ####[place] [address] MCHC 34 X10 3 Normal 32 - 36 [facility] Comment on above: Performed By: #### 2 83850 ####[place] [address] MCV (RBC) [Entitic vol] 86 fL Normal 80 - 99 [facility] Comment on above: Performed By: #### 2 02106 ####[facility],[address] [place] [address] [place] # 0.45 x10EE3/UL Normal 0.20 - 1.00 [facility] Comment on above: Performed By: #### 2 00525 ####[place] [address] MONOS % 5.9 % Normal 0.0 - 10.0 [facility] Comment on above: Performed By: #### 2 35059 ####[facility],[address] [place] [address] Morphology Julian (Bld) [Interp] N/A Normal [facility] Comment on above: Performed By: #### 2 75450 ####[facility],[address] [place] [address] 82146 Neut # 6.33 x10EE3/UL Normal 1.50 - 7.10 [facility] Comment on above: Performed By: #### 2 62045 ####[facility],[address] [place] [address] Neutrophils/100 WBC (Bld) 83.1 % High 46.0 - 76.0 [facility] Comment on above: Performed By: #### 2 43211 ####[facility],[address] [place] [address] PLATELET 337 x10EE3/UL Normal 150 - 450 [facility] Comment on above: Performed By: #### 2 58826 ####[facility],[address] [place] [address] Platelet mean volume (Bld) [Entitic vol] 8.1 fL Normal 6.6 - 10.5 [facility] Comment on above: Result Comment: AUTO MATED DIFFERENTIAL Performed By: #### 2 49182 ####[facility],[address] [place] [address] RBC 5.61 x 10EE6/UL High 4.10 - 5.30 [facility] Comment on above: Performed By: #### 2 50212 ####[facility],[address] [place], [place] [address] WBC 7.6 x 10EE3/UL Normal 4.5 - 10.8 [facility] Comment on above: Performed By: #### 2 93286 ####[facility],[address] [place] [address] CMP with eGFRon 05-20-2024 AGE 74 years Normal [facility] Comment on above: Performed By: #### 2 31349 ####[facility],[address] [place] [address] 11880 Albumin [Mass/Vol] 4.3 g/dL Normal 3.4 - 5.0 [facility] Comment on above: Performed By: #### 2 00239 ####[facility],[address] [place] [address] 28484 Albumin/Globulin [Mass ratio] 1.0 {ratio} Normal 0.9 - 1.6 [facility] Comment on above: Performed By: #### 2 91246 ####[facility],[address] [place] [address] 98953 ALK PHOS 95 U/L Normal 46 - 116 [facility] Comment on above: Performed By: #### 2 17074 ####[facility],[address] [place] [address] 13903 ALT [Catalytic activity/Vol] 21 U/L Normal 16 - 63 [facility] Comment on above: Performed By: #### 2 33117 ####[facility],[address] [place] [address] 44691 Anion gap [Moles/Vol] 18 mmol/L Normal 10 - 20 [facility] Comment on above: Performed By: #### 2 71310 ####[facility],[address] [place] [address] 73416 AST [Catalytic activity/Vol] 16 U/L Normal 13 - 39 [facility] Comment on above: Performed By: #### 2 95595 ####[facility],[address] [place] [address] 84584 B/C RATIO 17 ratio Normal 0 - 30 [facility] Comment on above: Performed By: #### 2 68382 ####[facility],[address] [place] [address] 17902 Bilirubin [Mass/Vol] 0.6 mg/dL Normal 0.2 - 1.0 [facility] Comment on above: Performed By: #### 2 69620 ####[facility],[address] [place] [address] 26263 Calcium [Mass/Vol] 10.2 mg/dL High 8.5 - 10.1 [facility] Comment on above: Performed By: #### 2 53188 ####[facility],[address] [place] [address] 58277 Chloride [Moles/Vol] 96 mmol/L Low 98 - 107 [facility] Comment on above: Performed By: #### 2 78247 ####[facility],[address] [place] [address] 73109 CMP with eGFR Normal [facility] Comment on above: Result Comment: COMP REHENSIVE METABOLIC PANEL Performed By: #### 2 18577 ####[facility],[address] [place] [address] 04049 CO2 [Moles/Vol] 31.5 mmol/L Normal 21.0 - 32.0 [facility] Comment on above: Performed By: #### 2 13227 ####[facility],[address] [place] [address] 50481 Creatinine [Mass/Vol] 1.44 mg/dL High 0.55 - 1.02 [facility] Comment on above: Performed By: #### 2 56941 ####[facility],[address] [place] [address] 59460 eGFR 36 ML/MINUTE Low 60 - 999 [facility] Comment on above: Performed By: #### 2 45610 ####[facility],[address] [place] [address] 59122 eGFR(AA) 43 ML/MINUTE Low 60 - 999 [facility] Comment on above: Result Comment: ACCO RDING TO THE NATIONAL KIDNEY DISEASE EDUCATION PROGRAM(NKDE), A NORMAL eGFRIS A VALUE GREATER THAN OR EQUAL TO 60 ML/MIN/1.73 SQ METERS.CHRONIC KIDNEY DISEASE: <60mL/MIN/1.73 SQ METERSKIDNEY FAILURE: <15mL/MIN/1.73 SQ METERSTHIS TEST SHOULD ONLY BE USED FOR PATIENTS 18 YEARS OF AGE AND OLDER. Performed By: #### 2 92785 ####[facility],[address] [place] [address] 08475 Globulin (S) [Mass/Vol] 4.4 g/dL High 1.5 - 3.8 [facility] Comment on above: Performed By: #### 2 97516 ####[facility],[address] [place] [address] 29483 Glucose [Mass/Vol] 152 mg/dL High 74 - 106 [facility] Comment on above: Performed By: #### 2 26022 ####[facility],[address] [place] [address] 16287 Potassium [Moles/Vol] 3.1 mmol/L Low 3.5 - 5.1 [facility] Comment on above: Performed By: #### 2 19539 ####[facility],[address] [place] [address] 78183 Protein [Mass/Vol] 8.7 g/dL High 6.4 - 8.2 [facility] Comment on above: Performed By: #### 2 65714 ####[facility],[address] [place] [address] 16595 Sodium [Moles/Vol] 142 mmol/L Normal 136 - 145 [facility] Comment on above: Performed By: #### 2 82299 ####[facility],[address] [place] [address] 23255 Urea nitrogen [Mass/Vol] 24 mg/dL High 7 - 18 [facility] Comment on above: Performed By: #### 2 37087 ####[facility],[address] [place] [address] 47259 LACTATEon 05-20-2024 Lactate [Moles/Vol] 2.6 mmol/L High 0.4 - 2.0 [facility] Comment on above: Result Comment: LACT ATE 3 HR NOTIFIED TO: _YAMILEX CANO 05/20/24.0421.TR . . . LACTATE 3 HR NOTIFIED BY: _TRR 05/20/24.042.TR . . . Performed By: #### 2 34729 ####[facility],[address] [place] [address] CBC + DIFFon 05-13-2024 Baso # 0.02 x10EE3/UL Normal 0.00 - 0.10 [facility] Comment on above: Performed By: #### 2 59584 ####[address] [address] Basophils/100 WBC (Bld) 0.2 % Normal 0.0 - 2.0 [facility] Comment on above: Performed By: #### 2 24570 ####[facility],[address] [place] [address] CBC + DIFF Normal [facility] Comment on above: Result Comment: CBC- COMPLETE BLOOD COUNT Performed By: #### 2 04121 ####[place] [address] EO # 0.05 x10EE3/UL Normal 0.00 - 0.50 [facility] Comment on above: Performed By: #### 2 13211 ####[facility],[address] [place] [address] 63065 Eosinophils/100 WBC (Bld) 0.4 % Normal 0.0 - 7.0 [facility] Comment on above: Performed By: #### 2 89880 ####[place] [address] Erythrocyte distribution width (RBC) [Ratio] 13.8 % Normal 12.0 - 15.6 [facility] Comment on above: Performed By: #### 2 56484 ####[facility],[address] [place] [address] Hematocrit (Bld) [Volume fraction] 50.9 % High 34.0 - 46.0 [facility] Comment on above: Performed By: #### 2 12985 ####[facility],[address] [place] [address] 67876 Hemoglobin (Bld) [Mass/Vol] 17.1 g/dL High 12.0 - 16.0 [facility] Comment on above: Performed By: #### 2 80558 ####[facility],[address] [place] [address] Lymph # 0.70 x10EE3/UL Low 0.80 - 2.80 [facility] Comment on above: Performed By: #### 2 02156 ####[facility],[address] [place] [address] Lymphocytes/100 WBC (Bld) 5.1 % Low 20.0 - 45.0 [facility] Comment on above: Performed By: #### 2 60172 ####[facility],[address] [place] [address] 17518 MANUAL DIFF N/A Normal [facility] Comment on above: Performed By: #### 2 24933 ####[facility],[address] [place], [place] [address] MCH (RBC) [Entitic mass] 29 pg Normal 27 - 33 [facility] Comment on above: Performed By: #### 2 36772 ####[facility],[address] [place] [address] 46122 MCHC 34 X10 3 Normal 32 - 36 [facility] Comment on above: Performed By: #### 2 92136 ####[facility],[address] [place] [address] 03755 MCV (RBC) [Entitic vol] 87 fL Normal 80 - 99 [facility] Comment on above: Performed By: #### 2 92140 ####[facility],[address] [place] [address] 21044 [place] # 0.52 x10EE3/UL Normal 0.20 - 1.00 [facility] Comment on above: Performed By: #### 2 05891 ####[facility],[address] [place] [address] 40671 MONOS % 3.8 % Normal 0.0 - 10.0 [facility] Comment on above: Performed By: #### 2 30967 ####[facility],[address] [place] [address] 66662 Morphology Julian (Bld) [Interp] N/A Normal [facility] Comment on above: Performed By: #### 2 73751 ####[facility],[address] [place] [address] 27793 Neut # 12.43 x10EE3/UL High 1.50 - 7.10 [facility] Comment on above: Performed By: #### 2 74253 ####[facility],[address] [place] [address] 25018 Neutrophils/100 WBC (Bld) 90.6 % High 46.0 - 76.0 [facility] Comment on above: Performed By: #### 2 31371 ####[facility],[address] [place] [address] 12207 PLATELET 354 x10EE3/UL Normal 150 - 450 [facility] Comment on above: Performed By: #### 2 81497 ####[facility],[address] [place] [address] 80393 Platelet mean volume (Bld) [Entitic vol] 7.1 fL Normal 6.6 - 10.5 [facility] Comment on above: Result Comment: AUTO MATED DIFFERENTIAL Performed By: #### 2 94329 ####[facility],[address] [place] [address] 42662 RBC 5.89 x 10EE6/UL High 4.10 - 5.30 [facility] Comment on above: Performed By: #### 2 67074 ####[facility],[address] [place] [address] 51136 WBC 13.7 x 10EE3/UL High 4.5 - 10.8 [facility] Comment on above: Performed By: #### 2 84001 ####[facility],[address] [place] [address] 89691 CMP with eGFRon 05-13-2024 AGE 74 years Normal [facility] Comment on above: Performed By: #### 2 45554 ####[facility],[address] [place] [address] 64927 Albumin [Mass/Vol] 4.5 g/dL Normal 3.4 - 5.0 [facility] Comment on above: Performed By: #### 2 85011 ####[facility],[address] [place] [address] 78680 Albumin/Globulin [Mass ratio] 1.0 {ratio} Normal 0.9 - 1.6 [facility] Comment on above: Performed By: #### 2 93184 ####[facility],[address] [place] [address] 70020 ALK PHOS 108 U/L Normal 46 - 116 [facility] Comment on above: Performed By: #### 2 22187 ####[facility],[address] [place] [address] 05778 ALT [Catalytic activity/Vol] 25 U/L Normal 16 - 63 [facility] Comment on above: Performed By: #### 2 40871 ####[facility],[address] [place] [address] 21862 Anion gap [Moles/Vol] 17 mmol/L Normal 10 - 20 [facility] Comment on above: Performed By: #### 2 54572 ####[facility],[address] [place] [address] 04887 AST [Catalytic activity/Vol] 24 U/L Normal 13 - 39 [facility] Comment on above: Performed By: #### 2 16863 ####[facility],[address] [place] [address] 34033 B/C RATIO 12 ratio Normal 0 - 30 [facility] Comment on above: Performed By: #### 2 35988 ####[facility],[address] [place] [address] 10993 Bilirubin [Mass/Vol] 0.6 mg/dL Normal 0.2 - 1.0 [facility] Comment on above: Performed By: #### 2 82606 ####[facility],[address] [place] [address] 42232 Calcium [Mass/Vol] 10.4 mg/dL High 8.5 - 10.1 [facility] Comment on above: Performed By: #### 2 74608 ####[facility],[address] [place] [address] 67896 Chloride [Moles/Vol] 91 mmol/L Low 98 - 107 [facility] Comment on above: Performed By: #### 2 61990 ####[facility],[address] [place] [address] 09714 CMP with eGFR Normal [facility] Comment on above: Result Comment: COMP REHENSIVE METABOLIC PANEL Performed By: #### 2 91063 ####[facility],[address] [place] [address] 18210 CO2 [Moles/Vol] 33.6 mmol/L High 21.0 - 32.0 [facility] Comment on above: Performed By: #### 2 70070 ####[facility],[address] [place] [address] 05071 Creatinine [Mass/Vol] 2.08 mg/dL High 0.55 - 1.02 [facility] Comment on above: Performed By: #### 2 95597 ####[facility],[address] [place] [address] 38468 eGFR 23 ML/MINUTE Low 60 - 999 [facility] Comment on above: Performed By: #### 2 35831 ####[facility],[address] [place] [address] 50360 eGFR(AA) 28 ML/MINUTE Low 60 - 999 [facility] Comment on above: Result Comment: ACCO RDING TO THE NATIONAL KIDNEY DISEASE EDUCATION PROGRAM(NKDE), A NORMAL eGFRIS A VALUE GREATER THAN OR EQUAL TO 60 ML/MIN/1.73 SQ METERS.CHRONIC KIDNEY DISEASE: <60mL/MIN/1.73 SQ METERSKIDNEY FAILURE: <15mL/MIN/1.73 SQ METERSTHIS TEST SHOULD ONLY BE USED FOR PATIENTS 18 YEARS OF AGE AND OLDER. Performed By: #### 2 94385 ####[address] [address] Globulin (S) [Mass/Vol] 4.5 g/dL High 1.5 - 3.8 [facility] Comment on above: Performed By: #### 2 29546 ####[facility],[address] [place] [address] 00465 Glucose [Mass/Vol] 195 mg/dL High 74 - 106 [facility] Comment on above: Performed By: #### 2 68263 ####[facility],[address] [place] [address] 68739 Potassium [Moles/Vol] 3.2 mmol/L Low 3.5 - 5.1 [facility] Comment on above: Performed By: #### 2 11161 ####[facility],[address] [place] [address] 55388 Protein [Mass/Vol] 9.0 g/dL High 6.4 - 8.2 [facility] Comment on above: Performed By: #### 2 84886 ####[facility],[address] [place] [address] 15130 Sodium [Moles/Vol] 138 mmol/L Normal 136 - 145 [facility] Comment on above: Performed By: #### 2 37822 ####[address],[place] [address] Urea nitrogen [Mass/Vol] 25 mg/dL High 7 - 18 [facility] Comment on above: Performed By: #### 2 65614 ####[facility],[address] [place] [address] ED MED ADMINISTRATION DETAIL on 05-13-2024 ED MED ADMINISTRATION DETAIL Normal [facility] ED NURSES CLINICAL NOTEon ED NURSES CLINICAL NOTE Normal [facility] ED ORDER SHEET (CPOE ONLY)on 05-13-2024 ED ORDER SHEET (CPOE ONLY) Normal [facility] ED PHYSICIAN CLINICAL REPORT on 05-13-2024 ED PHYSICIAN CLINICAL REPORT Normal [facility] ED PHYSICIAN DISCHARGE REPOR Ton 05-13-2024 ED PHYSICIAN DISCHARGE REPORT Normal [facility] ED SUPER BILLon 05-13-2024 ED SUPER BILL Normal [facility] ED VISIT SUMMARYon ED VISIT SUMMARY Normal [facility] ED VITALS FLOW SHEETon 05-13 ED VITALS FLOW SHEET Normal [facility] CBC + DIFFon 03-07-2024 Baso # 0.03 x10EE3/UL Normal 0.00 - 0.10 [facility] Comment on above: Performed By: #### 2 24045 ####[facility],[address] [place] [address] Basophils/100 WBC (Bld) 0.4 % Normal 0.0 - 2.0 [facility] Comment on above: Performed By: #### 2 88397 ####[facility],[address] [place] [address] CBC + DIFF Normal [facility] Comment on above: Result Comment: CBC- COMPLETE BLOOD COUNT Performed By: #### 2 65363 ####[facility],[address] [place] [address] EO # 0.19 x10EE3/UL Normal 0.00 - 0.50 [facility] Comment on above: Performed By: #### 2 03862 ####[address] [address] Eosinophils/100 WBC (Bld) 2.1 % Normal 0.0 - 7.0 [facility] Comment on above: Performed By: #### 2 79249 ####[place] [address] Erythrocyte distribution width (RBC) [Ratio] 13.8 % Normal 12.0 - 15.6 [facility] Comment on above: Performed By: #### 2 68629 ####[place] [address] Hematocrit (Bld) [Volume fraction] 49.7 % High 34.0 - 46.0 [facility] Comment on above: Performed By: #### 2 76472 ####[place] [address] Hemoglobin (Bld) [Mass/Vol] 16.5 g/dL High 12.0 - 16.0 [facility] Comment on above: Performed By: #### 2 84181 ####[place] [id number] Lymph # 1.79 x10EE3/UL Normal 0.80 - 2.80 [facility] Comment on above: Performed By: #### 2 47381 ####[place] [id number] Lymphocytes/100 WBC (Bld) 19.9 % Low 20.0 - 45.0 [facility] Comment on above: Performed By: #### 2 63700 ####[place] [id number] MANUAL DIFF N/A Normal [facility] Comment on above: Performed By: #### 2 56022 ####[place] [address] MCH (RBC) [Entitic mass] 29 pg Normal 27 - 33 [facility] Comment on above: Performed By: #### 2 03258 ####[facility],[address] [place] [address] 03153 MCHC 33 X10 3 Normal 32 - 36 [facility] Comment on above: Performed By: #### 2 89959 ####[facility],[address] [place] [address] 71468 MCV (RBC) [Entitic vol] 87 fL Normal 80 - 99 [facility] Comment on above: Performed By: #### 2 19225 ####[facility],[address] [place] [address] 73668 [place] # 0.63 x10EE3/UL Normal 0.20 - 1.00 [facility] Comment on above: Performed By: #### 2 23598 ####[facility],[address] [place] [address] 51263 MONOS % 7.0 % Normal 0.0 - 10.0 [facility] Comment on above: Performed By: #### 2 47127 ####[facility],[address] [place] [address] 93680 Morphology Julian (Bld) [Interp] N/A Normal [facility] Comment on above: Performed By: #### 2 05486 ####[facility],[address] [place] [address] 32991 Neut # 6.35 x10EE3/UL Normal 1.50 - 7.10 [facility] Comment on above: Performed By: #### 2 21827 ####[facility],[address] [place] [address] 72312 Neutrophils/100 WBC (Bld) 70.6 % Normal 46.0 - 76.0 [facility] Comment on above: Performed By: #### 2 55207 ####[facility],[address] [place] [address] 87862 PLATELET 312 x10EE3/UL Normal 150 - 450 [facility] Comment on above: Performed By: #### 2 45429 ####[facility],[address] [place] [address] 82869 Platelet mean volume (Bld) [Entitic vol] 7.6 fL Normal 6.6 - 10.5 [facility] Comment on above: Result Comment: AUTO MATED DIFFERENTIAL Performed By: #### 2 95939 ####[facility],[address] [place] [address] 59442 RBC 5.71 x 10EE6/UL High 4.10 - 5.30 [facility] Comment on above: Performed By: #### 2 70385 ####[facility],[address] [place] [address] 83291 WBC 9.0 x 10EE3/UL Normal 4.5 - 10.8 [facility] Comment on above: Performed By: #### 2 70935 ####[facility],[address] [place], [place] [id number] CHEST 1 VIEWon 03-07-2024 CHEST 1 VIEW Normal [facility] CMP with eGFRon 03-07-2024 AGE 74 years Normal [facility] Comment on above: Performed By: #### 2 30245 ####[facility],[address] [place] [address] 16779 Albumin [Mass/Vol] 4.4 g/dL Normal 3.4 - 5.0 [facility] Comment on above: Performed By: #### 2 22071 ####[facility],[address] [place] [address] 14369 Albumin/Globulin [Mass ratio] 1.0 {ratio} Normal 0.9 - 1.6 [facility] Comment on above: Performed By: #### 2 13856 ####[facility],[address] [place] [address] 75875 ALK PHOS 111 U/L Normal 46 - 116 [facility] Comment on above: Performed By: #### 2 68882 ####[facility],[address] [place] [address] 38440 ALT [Catalytic activity/Vol] 22 U/L Normal 16 - 63 [facility] Comment on above: Performed By: #### 2 42922 ####[facility],[address] [place] [address] 32051 Anion gap [Moles/Vol] 16 mmol/L Normal 10 - 20 [facility] Comment on above: Performed By: #### 2 13419 ####[facility],[address] [place] [address] 77783 AST [Catalytic activity/Vol] 19 U/L Normal 13 - 39 [facility] Comment on above: Performed By: #### 2 83428 ####[facility],[address] [place] [address] 83298 B/C RATIO 8 ratio Normal 0 - 30 [facility] Comment on above: Performed By: #### 2 31196 ####[facility],[address] [place] [address] 34004 Bilirubin [Mass/Vol] 0.5 mg/dL Normal 0.2 - 1.0 [facility] Comment on above: Performed By: #### 2 92176 ####[facility],[address] [place] [address] 43241 Calcium [Mass/Vol] 10.5 mg/dL High 8.5 - 10.1 [facility] Comment on above: Performed By: #### 2 33138 ####[facility],[address] [place] [address] 50924 Chloride [Moles/Vol] 100 mmol/L Normal 98 - 107 [facility] Comment on above: Performed By: #### 2 57673 ####[facility],[address] [place] [address] 98331 CMP with eGFR Normal [facility] Comment on above: Result Comment: COMP REHENSIVE METABOLIC PANEL Performed By: #### 2 41564 ####[facility],[address] [place] [address] 25703 CO2 [Moles/Vol] 27.3 mmol/L Normal 21.0 - 32.0 [facility] Comment on above: Performed By: #### 2 65698 ####[facility],[address] [place] [address] 31059 Creatinine [Mass/Vol] 1.58 mg/dL High 0.55 - 1.02 [facility] Comment on above: Performed By: #### 2 86729 ####[facility],[address] [place] [address] 16012 eGFR 32 ML/MINUTE Low 60 - 999 [facility] Comment on above: Performed By: #### 2 60491 ####[facility],[address] [place] [address] 79601 eGFR(AA) 39 ML/MINUTE Low 60 - 999 [facility] Comment on above: Result Comment: ACCO RDING TO THE NATIONAL KIDNEY DISEASE EDUCATION PROGRAM(NKDE), A NORMAL eGFRIS A VALUE GREATER THAN OR EQUAL TO 60 ML/MIN/1.73 SQ METERS.CHRONIC KIDNEY DISEASE: <60mL/MIN/1.73 SQ METERSKIDNEY FAILURE: <15mL/MIN/1.73 SQ METERSTHIS TEST SHOULD ONLY BE USED FOR PATIENTS 18 YEARS OF AGE AND OLDER. Performed By: #### 2 13032 ####[facility],[address] [place] [address] 78375 Globulin (S) [Mass/Vol] 4.5 g/dL High 1.5 - 3.8 [facility] Comment on above: Performed By: #### 2 83027 ####[facility],[address] [place] [address] 77147 Glucose [Mass/Vol] 139 mg/dL High 74 - 106 [facility] Comment on above: Performed By: #### 2 63023 ####[facility],[address] [place] [address] 29064 Potassium [Moles/Vol] 3.3 mmol/L Low 3.5 - 5.1 [facility] Comment on above: Performed By: #### 2 33846 ####[facility],[address] [place] [address] 48693 Protein [Mass/Vol] 8.9 g/dL High 6.4 - 8.2 [facility] Comment on above: Performed By: #### 2 75736 ####[facility],[address] [place] [address] 39240 Sodium [Moles/Vol] 140 mmol/L Normal 136 - 145 [facility] Comment on above: Performed By: #### 2 32624 ####[facility],[address] [place] [address] 00676 Urea nitrogen [Mass/Vol] 12 mg/dL Normal 7 - 18 [facility] Comment on above: Performed By: #### 2 10776 ####[facility],[address] [place] [address] ABDOMEN/PELVIS Won 2023 CT ABDOMEN/PELVIS W Normal [facility] ED MED ADMINISTRATION DETAIL on 03-07-2024 ED MED ADMINISTRATION DETAIL Normal [facility] ED NURSES CLINICAL NOTEon ED NURSES CLINICAL NOTE Normal [facility] ED ORDER SHEET (CPOE ONLY)on 03-07-2024 ED ORDER SHEET (CPOE ONLY) Normal [facility] ED PHYSICIAN CLINICAL REPORT on 03-07-2024 ED PHYSICIAN CLINICAL REPORT Normal [facility] ED PHYSICIAN DISCHARGE REPOR Ton 03-07-2024 ED PHYSICIAN DISCHARGE REPORT Normal [facility] ED SUPER BILLon 03-07-2024 ED SUPER BILL Normal [facility] ED VISIT SUMMARYon ED VISIT SUMMARY Normal [facility] ED VITALS FLOW SHEETon 03-07 ED VITALS FLOW SHEET Normal [facility] LIPASEon 03-07-2024 Lipase [Catalytic activity/Vol] 116.0 U/L High 15.0 - 78.0 [facility] Comment on above: Result Comment: *PLE ASE NOTE THAT RANGES FOR LIPASE HAVE CHANGED OF 04/12/23 DUE TO AN ASSAYUPDATE BY THE HAND BINDER STRIPPER.THE NEW ASSAY RANGE IS 6-250 U/L, WITH A REFERENCERANGE OF 16-77 U/L. Performed By: #### 2 46740 ####[facility],[address] [place] [address] TROPONINon 03-07-2024 HS TROPONIN <4.0 Normal 0.0 - 51.4 [facility] Comment on above: Performed By: #### 2 51749 ####[facility],[address] [place] [address] URINALYSISon 03-07-2024 Amorphous 2+ Normal [facility] Comment on above: Performed By: #### 2 66083 ####[facility],[address] [place] [address] Bacteria NONE Normal [facility] Comment on above: Performed By: #### 2 97605 ####[facility],[address] [place], [place] [id number] Bilirubin Ql (U) Negative Normal NORMAL: NEGATIVE [facility] Comment on above: Performed By: #### 2 53598 ####[facility],[address] [place], [place] [id number] Casts SEE BELOW Normal [facility] Comment on above: Performed By: #### 2 69088 ####[facility],[address] [place], [place] [id number] Clarity (U) clear Normal NORMAL: CLEAR [facility] Comment on above: Performed By: #### 2 04900 ####[facility],[address] [place], [place] [id number] Color (U) LOUISE Normal NORMAL: YELLOW [facility] Comment on above: Performed By: #### 2 76530 ####[facility],[address],[place] [address] Crystals LM Nom (Urine sed) NONE Normal [facility] Comment on above: Performed By: #### 2 64106 ####[facility],[address] [place] [address] 40220 Epi Cells FEW Normal [facility] Comment on above: Performed By: #### 2 32584 ####[facility],[address] [place] [address] 93933 Glucose Ql (U) NORM Normal NORMAL: NORMAL [facility] Comment on above: Performed By: #### 2 76657 ####[facility],[address] [place] [address] 74484 Hemoglobin Ql (U) 10 Abnormal NORMAL: NEGATIVE [facility] Comment on above: Performed By: #### 2 92637 ####[facility],[address] [place], [place] [id number] Hyaline 1-5 Normal NORMAL: NONE [facility] Comment on above: Performed By: #### 2 91904 ####[facility],[address] [place] [address] 24664 Ketone 15 Abnormal NORMAL: NEGATIVE [facility] Comment on above: Performed By: #### 2 11231 ####[facility],[address] [place] [address] 10227 Leukocytes 100 Abnormal NORMAL: NEGATIVE [facility] Comment on above: Performed By: #### 2 00652 ####[facility],[address] [place] [address] 63836 Mucous 3+ Normal [facility] Comment on above: Performed By: #### 2 37195 ####[facility],[address] [place] [address] 66726 Nitrite Ql (U) Negative Normal NORMAL: NEGATIVE [facility] Comment on above: Performed By: #### 2 51164 ####[facility],[address] [place] [address] 93691 pH (U) 7 [pH] Normal NORMAL: 5.0-8.0 [facility] Comment on above: Performed By: #### 2 30031 ####[facility],[address] [place] [address] 04525 Protein Ql (U) 100 Abnormal NORMAL: NEGATIVE [facility] Comment on above: Performed By: #### 2 74642 ####[facility],[address] [place] [address] Rbc 0-5 Normal 0-3/hpf [facility] Comment on above: Performed By: #### 2 74519 ####[facility],[address] [place] [address] Sp [place] 1.015 Normal NORMAL: 1.010-1.030 [facility] Comment on above: Performed By: #### 2 90487 ####[facility],[address] [place] [address] Specimen Type R Normal [facility] Comment on above: Performed By: #### 2 29575 ####[facility],[address] [place] [address] Urinalysis dipstick W Reflex Microscopic panel (U) SEE BELOW Normal [facility] Comment on above: Result Comment: MICR OSCOPIC DONE ON UNSPUN URINE, RECIEVED< 2ML OF SAMPLEMICROSCOPIC Performed By: #### 2 15289 ####[facility],[address] [place] [address] Urobilinog 1 Abnormal NORMAL: NORMAL [facility] Comment on above: Performed By: #### 2 63721 ####[facility],[address] [place] [address] Wbc 6-10 Normal 0-5/hpf [facility] Comment on above: Performed By: #### 2 43296 ####[facility],[address] [place] [address] Yeast NONE Normal [facility] Comment on above: Performed By: #### 2 71353 ####[facility],[address] [id number] MR/BMS.SIMONBon 02-24-2024 MR/BMS.SIMONB [facility] [address] [facility] [place] [address] OFFICE VISIT Date of Service: 02/24/24 MR#: [id number] Acct: [id number] Name: BONY HUANG Rep #: [id number] 1 : 1950 Provider: Dr. Cheikh negrete MD Age/Sex: 74/F Location: [facility] Status: Signed Intake Vital Signs 02/17/24 18:00 02/19/24 17:35 02/24/24 15:11 Height 5 ft 3 in 5 ft 3 in 5 ft 3 in Weight: 155 lb BMI 27.4 BP 166/102 H Blood Pressure Location Lt brachial Position Sitting Respiration 16 Pulse 61 Pulse Source Monitor Temp 98.6 F Temp Source Temporal Pulse Oximetry (%) 97 Oxygen Delivery Method room air Intake Visit Reasons: 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 Required: No Accompanied by: Is patient in pain?: Yes (stomach pain) Pain scale (1-10): 2 Allergies Sulfa (Sulfonamide Antibiotics) Allergy (Mild, Verified 02/24/24 15:02) Rash sulfamethoxazole (From Bactrim) Allergy (Mild, Verified 02/24/24 15:02) rash trimethoprim (From Bactrim) Allergy (Mild, Verified 02/24/24 15:02) rash aspirin Adverse Reaction (Mild, Verified 02/24/24 15:02) nose bleed Medications ???Medication ???Instructions ???Recorded ???Confirmed ???Type melatonin 5 mg capsule 5 mg PO DAILY 10/25/22 02/24/24 History levothyroxine 88 mcg tablet 88 mcg PO DAILY #90 tabs 07/05/23 02/24/24 Rx prucalopride 2 mg tablet 2 mg PO DAILY #90 tabs 01/09/24 02/24/24 Rx (Motegrity) cholecalciferol (vitamin D3) 25 25 mcg PO QDAY 01/23/24 02/24/24 History mcg (1,000 unit) capsule pantoprazole 20 mg tablet,delayed 20 mg PO 4XD 02/17/24 02/24/24 History release potassium iodide 65 mg tablet 130 mg PO DAILY 02/17/24 02/24/24 History ondansetron 4 mg disintegrating 4 mg PO Q8H PRN PRN Nausea #10 tabs 02/20/24 02/24/24 Rx tablet brain sync PO DAILY 02/24/24 History cetirizine 5 mg tablet 5 mg PO QDAY PRN 02/24/24 02/24/24 History digestive enzymes 1 tab PO QDAY 02/24/24 02/24/24 History omega-3 fatty acids-fish oil 300 cap PO 02/24/24 02/24/24 History mg-500 mg capsule (Fish Oil) vitamin B complex 1 tab PO QDAY 02/24/24 02/24/24 History Have you fallen in the past year?: No [facility] Medical History (Updated 02/26/24 @ 00:02 by Fabian Dee) Hypothyroidism polypectomy Gastroparesis Carcinoid tumor Surgical History H/O: hysterectomy Family History Father Heart disease Myocardial infarction Mother CVA (cerebral vascular accident) Thyroid disorder Cancer Asthma Breast cancer Sister Cancer Social History Smoking Status: Never smoker alcohol intake: never substance use type: does not use HPI HPI Chief Complaint: [facility] [place] [facility] fu Details: BONY HUANG, is a 74 F who presents to the office today for ER follow-up/hospitaliz ation. 74-year-old female who has a history of recurrent episodes of nausea vomiting diarrhea, presumably all related to her severe gastroparesis. She frequently goes to [facility] and will receive IV fluids, antiemetic emetics and usually can be discharged. She was admitted, due to acute kidney injury, dehydration. She responded well to IV fluids, symptomatic care. Subsequently discharged. She remains on Motegrity, that was initially provided through [facility]. She has had recent scopes completed, without any significant bothersome findings. She does have a tendency towards constipation however this seems more of a motility issue to me than anything else as usually a big stools are on the softer side. In any event, she did do an enema throughout this episode and that relieved some of the pressure. She had a lot of discomfort in the low abdomen with this episode and still perhaps has a little bit more towards the right lower abdomen. She was wondering about the possibility of UTI as initially they felt maybe she did in the ER however once hospitalized they felt it was not consistent with UTI. In any event since she has been home, she started cephalexin that she had available from previous UTI episodes. She has felt better since starting on the antibiotic at this point. Also requesting flu shot today. Review of systems per chart. Physical exam. Vital signs on chart. Sclera are clear. No cervical or supraclavicular lymph nodes enlarged or tender. No clear thyromegaly. No thyroid nodules readily palpable. Lungs are without wheeze, rhonchi, rales. No E/A changes are heard. Heart is regular. Not tachycardic. No clear murmur, rub, or gallop is identified. The abdomen is soft. Bowel sounds are present. Mild diffuse long localizing right lower abdominal soreness/tenderness. Not frankly painful. No guarding, rigidity or rebou (more content not included)... Normal [facility] Urinalysis, Completeon 02-19 CAST,FINE GRAN 0-5 SEEN Normal 0-5 [facility] Comment on above: Order Comment: CLEAN CATCH Performed By: #### L 400.0001 #### [facility] [address] [place], [place], [id number] CAST,HYALINE 5-10 SEEN Normal 0-5 [facility] Comment on above: Order Comment: CLEAN CATCH Performed By: #### L 400.0001 #### [facility] [address] [place], [address] EPI,SQUAMOUS 5-10 SEEN Normal 5-10 [facility] Comment on above: Order Comment: CLEAN CATCH Performed By: #### L 400.0001 #### [facility] [address] [place], [address] Mucus Ql (Urine sed) 4+ /hpf Normal [facility] Comment on above: Order Comment: CLEAN CATCH Performed By: #### L 400.0001 #### [facility] [address] [place], [address] WBC 0-5 SEEN Normal 0-5 [facility] Comment on above: Order Comment: CLEAN CATCH Performed By: #### L 400.0001 #### [facility] [address] [place], [address] CBC W/Diff, Automatedon 11-0 6-2023 Absolute Lymph 1.98 X10 3/uL Normal 0.83-4.51 [facility] Comment on above: Performed By: #### L 500.4050, L100.0100 #### [facility] [address] [place], [address] Absolute Neut 4.2 X10 3/uL Normal 2.0-7.7 [facility] Comment on above: Performed By: #### L 500.4050, L100.0100 #### [facility] [address] [place], [address] Basophils/100 WBC (Bld) 0.6 % Normal 0-1 [facility] Comment on above: Performed By: #### L 500.4050, L100.0100 #### [facility] [address] [place], [address] Eosinophils/100 WBC (Bld) 1.9 % Normal 0-5 [facility] Comment on above: Performed By: #### L 500.4050, L100.0100 #### [facility] [address] [place], [address] Erythrocyte distribution width (RBC) [Ratio] 12.8 % Normal 11.6-14.6 [facility] Comment on above: Performed By: #### L 500.4050, L100.0100 #### [facility] [address] [place], [address] Hematocrit (Bld) [Volume fraction] 43.9 % Normal 37-47 [facility] Comment on above: Performed By: #### L 500.4050, L100.0100 #### [facility] [address] [place], [address] Hemoglobin (Bld) [Mass/Vol] 14.7 g/dL Normal 12.0-15.0 [facility] Comment on above: Performed By: #### L 500.4050, L100.0100 #### [facility] [address] [place], [address] IG% 0.100 Normal 0.0-0.9 [facility] Comment on above: Result Comment: IG% - Immature Granulocytes (promyelocytes, myelocytes and metamyelocytes) > 1% indicates that a LEFT SHIFT is Present. Performed By: #### L 500.4050, L100.0100 #### [facility] [address] [place], [address] Lymphocytes/100 WBC (Bld) 28.5 % Normal 19-41 [facility] Comment on above: Performed By: #### L 500.4050, L100.0100 #### [facility] [address] [place], [address] MCH (RBC) [Entitic mass] 29.0 pg Normal 27.0-32.0 [facility] Comment on above: Performed By: #### L 500.4050, L100.0100 #### [facility] [address] [place], [address] MCHC (RBC) [Mass/Vol] 33.5 g/dL Normal 32-36 [facility] Comment on above: Performed By: #### L 500.4050, L100.0100 #### [facility] [address] [place], [address] MCV (RBC) [Entitic vol] 86.6 fL Normal 81-99 [facility] Comment on above: Performed By: #### L 500.4050, L100.0100 #### [facility] [address] [place], [address] Monocytes/100 WBC (Bld) 7.9 % Normal 0-10 [facility] Comment on above: Performed By: #### L 500.4050, L100.0100 #### [facility] [address] [place], [address] Neutrophils/100 WBC (Bld) 61.0 % Normal 47-70 [facility] Comment on above: Performed By: #### L 500.4050, L100.0100 #### [facility] [address] [place], [address] Nucleated RBC (Bld) [#/Vol] 0 10*3/uL Normal 0-5 [facility] Comment on above: Performed By: #### L 500.4050, L100.0100 #### [facility] [address] [place], [address] Platelet mean volume (Bld) [Entitic vol] 9.9 fL Normal 6.2-12.0 [facility] Comment on above: Performed By: #### L 500.4050, L100.0100 #### [facility] [address] [place], [address] Platelets (Bld) [#/Vol] 249 10*3/uL Normal 150-450 [facility] Comment on above: Performed By: #### L 500.4050, L100.0100 #### [facility] [address] [place], [address] RBC (Bld) [#/Vol] 5.07 10*6/uL Normal 4.2-5.4 [facility] Comment on above: Performed By: #### L 500.4050, L100.0100 #### [facility] [address] [place], [address] RDW SD 40.1 fl Normal 35.1-43.9 [facility] Comment on above: Performed By: #### L 500.4050, L100.0100 #### [facility] [address] [place], [address] WBC (Bld) [#/Vol] 6.9 10*3/uL Normal 4.4-11.0 [facility] Comment on above: Performed By: #### L 500.4050, L100.0100 #### [facility] [address] [place], [address] Comprehensive Metabolic Prof ilon 02-19-2024 Albumin [Mass/Vol] 4.4 g/dL Normal 3.2-5.0 [facility] Comment on above: Performed By: #### L 500.4050, L100.0100 #### [facility] [address] [place], [address] Albumin/Globulin [Mass ratio] 1.2 {ratio} Normal 0.9-2.4 [facility] Comment on above: Performed By: #### L 500.4050, L100.0100 #### [facility] [address] [place], [address] ALK P 97 U/L Normal 45-117 [facility] Comment on above: Performed By: #### L 500.4050, L100.0100 #### [facility] [address] [place], [address] ALT [Catalytic activity/Vol] 20 U/L Normal 13-56 [facility] Comment on above: Performed By: #### L 500.4050, L100.0100 #### [facility] [address] [place], [address] AST [Catalytic activity/Vol] 16 U/L Normal 15-37 [facility] Comment on above: Performed By: #### L 500.4050, L100.0100 #### [facility] [address] [place], [address] Bilirubin [Mass/Vol] 0.50 mg/dL Normal 0.20-1.00 [facility] Comment on above: Result Comment: For patients on eltrombopag therapy, use of Dimension [place] TBIL is not recommended. Performed By: #### L 500.4050, L100.0100 #### [facility] [address] [place], [address] BUN/CRE 12.7 RATIO Normal 10-20 [facility] Comment on above: Performed By: #### L 500.4050, L100.0100 #### [facility] [address] [place], [address] CA,Total 9.7 mg/dL Normal 8.5-10.1 [facility] Comment on above: Performed By: #### L 500.4050, L100.0100 #### [facility] [address] [place], [address] Chloride [Moles/Vol] 108 mmol/L High 98-107 [facility] Comment on above: Performed By: #### L 500.4050, L100.0100 #### [facility] [address] [place], [address] CO2 [Moles/Vol] 23.0 mmol/L Normal 21.0-32.0 [facility] Comment on above: Performed By: #### L 500.4050, L100.0100 #### [facility] [address] [place], [address] Creatinine [Mass/Vol] 1.02 mg/dL Normal 0.55-1.02 [facility] Comment on above: Result Comment: The validity of the calculated GFR GFRAA in patients over 70 years has not been determined. Clinical correlation is essential. Performed By: #### L 500.4050, L100.0100 #### [facility] [address] [place], [address] ECRCL 46.10 ml/min Normal [facility] Comment on above: Performed By: #### L 500.4050, L100.0100 #### [facility] [address] [place], [address] EST GFR - AA 68 mL/min Normal >60 [facility] Comment on above: Result Comment: Afri can [place] GFR Calc Performed By: #### L 500.4050, L100.0100 #### [facility] [address] [place], [address] GAP 7 Normal 5-15 [facility] Comment on above: Performed By: #### L 500.4050, L100.0100 #### [facility] [address] [place], [address] GFR/1.73 sq M.predicted among non-blacks MDRD (S/P/Bld) [Vol rate/Area] 56 mL/min/{1.73_m2} Low >60 [facility] Comment on above: Result Comment: Non- GFR Calc Performed By: #### L 500.4050, L100.0100 #### [facility] [address] [place], [address] Globulin (S) [Mass/Vol] 3.8 g/dL Normal 2.2-4.2 [facility] Comment on above: Performed By: #### L 500.4050, L100.0100 #### [facility] [address] [place], [address] Glucose [Mass/Vol] 96 mg/dL Normal 74-106 [facility] Comment on above: Performed By: #### L 500.4050, L100.0100 #### [facility] [address] [place], [address] Potassium [Moles/Vol] 3.8 mmol/L Normal 3.5-5.1 [facility] Comment on above: Performed By: #### L 500.4050, L100.0100 #### [facility] [address] [place], [address] Sodium [Moles/Vol] 137 mmol/L Normal 136-145 [facility] Comment on above: Performed By: #### L 500.4050, L100.0100 #### [facility] [address] [place], [address] T PROT 8.2 g/dL Normal 6.4-8.2 [facility] Comment on above: Performed By: #### L 500.4050, L100.0100 #### [facility] [address] [place], [address] Urea nitrogen [Mass/Vol] 13 mg/dL Normal 7-18 [facility] Comment on above: Performed By: #### L 500.4050, L100.0100 #### [facility] [address] [place], [address] Emergency Department Summary on 02-19-2024 Emergency Department Summary [facility] Medical Records Department [address] [place] [address] Emergency Department Summary 02/19/24 MR#: [id number] Acct: [id number] Name: BONY HUANG Rep #: [id number] : 1950 74 From: Lázaro Bermeo DO PCP: Dr. Cheikh Pinto MD Status:DEP ER Location: ED HPI HPI - GI History of Present Illness Chief Complaint: Nausea/Vomiting/Diar richie Informant: patient Abdominal Pain/Flank Pain Onset: Today Context: Gradual Onset Timing: Intermittent Quality: Cramping Location: Epigastric and LUQ Worsened by: Food Relieved by: Nothing Nausea/Vomiting/Emes is GI Symptom: Positive for Nausea and Vomiting Quality: Positive for Nonbilious; Negative for Blood streaks, Coffee ground or Hematemesis Diarrhea/Melena/Frankie tochezia GI Symptom: Positive for Diarrhea; Negative for Melena or Hematochezia Associated Symptoms Associated Symptoms: Negative for Dysuria, Frequency or Hematuria Narrative Narrative: Patient presents with abdominal pain, nausea, vomiting, and diarrhea that began today. Patient states she had similar episode recently and was admitted to the hospital. Patient states that after she was discharged she started having some abdominal pain, nausea, vomiting, and diarrhea again. Patient denies any hematemesis or coffee-ground emesis. Patient denies any melena or hematochezia. Patient denies any urinary complaints. Patient denies any fevers or chills. Patient states her pain is worse with any eating. Patient states it is mainly over the epigastric and left upper quadrant areas. Patient describes the pain as cramping. Patient states it comes and goes. Patient states she has a history of gastroparesis and states this feels similar to that. [facility] Medical History (Updated 02/20/24 @ 00:[address] Lázaro Bermeo, DO) Hypothyroidism polypectomy Gastroparesis Carcinoid tumor Home Medications ???Medication ???Instructions ???Recorded ???Last Taken ???Type melatonin 5 mg capsule 5 mg PO DAILY 10/25/22 02/16/24 History levothyroxine 88 mcg tablet 88 mcg PO DAILY #90 tabs 07/05/23 02/17/24 Rx prucalopride 2 mg tablet 2 mg PO DAILY #90 tabs 01/09/24 02/16/24 Rx (Motegrity) cholecalciferol (vitamin D3) 25 25 mcg PO QDAY 01/23/24 02/17/24 History mcg (1,000 unit) capsule pantoprazole 20 mg tablet,delayed 20 mg PO 4XD 02/17/24 02/17/24 History release potassium iodide 65 mg tablet 130 mg PO DAILY 02/17/24 02/16/24 History ondansetron 4 mg disintegrating 4 mg PO Q8H PRN PRN Nausea #10 tabs 02/20/24 Unknown Rx tablet Allergy/AdvReac Type Severity Reaction Status Date / Time Sulfa (Sulfonamide Allergy Mild Rash Verified 02/19/24 17:38 Antibiotics) sulfamethoxazole (From Allergy Mild rash Verified 02/19/24 17:38 Bactrim) trimethoprim (From Bactrim) Allergy Mild rash Verified 02/19/24 17:38 aspirin AdvReac Mild nose bleed Verified 02/19/24 17:38 Family History Father Heart disease Myocardial infarction Mother CVA (cerebral vascular accident) Thyroid disorder Cancer Asthma Breast cancer Sister Cancer Surgical History H/O: hysterectomy Social History Smoking Status: Never smoker alcohol intake: never substance use type: does not use ROS ROS ED Constitutional Constitutional ED: Denies chills or fever(s) Eyes Eyes: Denies blurry vision or change in vision ENT ENT ED: Denies rhinorrhea or sore throat Cardiovascular Cardiovascular: Denies chest pain or palpitations Respiratory/Chest Respiratory/Chest: Denies cough or dyspnea Gastrointestinal Gastrointestinal: Reports abdominal pain, diarrhea, nausea and vomiting; Denies melena Genitourinary Genitourinary ED: Denies dysuria or hematuria Musculoskeletal Musculoskeletal: Denies back pain or neck pain Integumentary Denies abscess or rash Neurologic Neurologic: Denies headache(s) or weakness Allergic/Immunologic Allergic/Immunologic ED: Denies mouth swelling or urticaria EXAM Physical Exam Const Vital Signs: 02/19/24 17:35 02/19/24 21:35 02/19/24 23:00 Temperature 98 F Temperature Source Oral Pulse Rate 71 87 72 Respiratory Rate 16 20 H 20 H Blood Pressure 146/98 H 151/79 H 148/87 H Blood Pressure Mean 114 103 107 Pulse Ox 99 96 97 Oxygen Delivery Method Room Air Room Air Room Air Positive well nourished and well developed General Appearance ED: well developed and NAD HEENT Reports moist mucous membranes normocephalic and atraumatic Neck supple and no JVD Resp normal respiratory effort and clear to auscultation bilaterally Cardio regular rate and regular rhythm GI non-distended Palpation: soft (more content not included)... Normal [facility] Urinalysis, Completeon 02-18 BACTERIA 0 SEEN Normal None Seen [facility] Comment on above: Order Comment: CLEAN CATCH Performed By: #### L 400.0001 #### [facility] [address] [place], [address] RBC 0 SEEN Normal 0-5 [facility] Comment on above: Order Comment: CLEAN CATCH Performed By: #### L 400.0001 #### [facility] [address] [place], [address] Urine Cultureon 02-19-2024 URC Mixed Gram Positive Organisms [place] Count 1000-10,000 MIXC Mixed contaminants. Submit a new specimen if indicated. Normal [facility] Comment on above: Performed By: #### L 500.4050, L501.5200 #### [facility] [address] [place], [address] CBC W/Diff, Automatedon Absolute Lymph 1.20 X10 3/uL Normal 0.83-4.51 [facility] Comment on above: Performed By: #### L 500.4050, L501.5200 #### [facility] [address] [place], [address] Absolute Neut 4.2 X10 3/uL Normal 2.0-7.7 [facility] Comment on above: Performed By: #### L 500.4050, L501.5200 #### [facility] [address] [place], [address] Basophils/100 WBC (Bld) 0.3 % Normal 0-1 [facility] Comment on above: Performed By: #### L 500.4050, L501.5200 #### [facility] [address] [place], [address] Eosinophils/100 WBC (Bld) 1.2 % Normal 0-5 [facility] Comment on above: Performed By: #### L 500.4050, L501.5200 #### [facility] [address] [place], [address] Erythrocyte distribution width (RBC) [Ratio] 13.1 % Normal 11.6-14.6 [facility] Comment on above: Performed By: #### L 500.4050, L501.5200 #### [facility] [address] [place], [address] Hematocrit (Bld) [Volume fraction] 38.7 % Normal 37-47 [facility] Comment on above: Performed By: #### L 500.4050, L501.5200 #### [facility] [address] [place], [address] Hemoglobin (Bld) [Mass/Vol] 12.9 g/dL Normal 12.0-15.0 [facility] Comment on above: Performed By: #### L 500.4050, L501.5200 #### [facility] [address] [place], [address] IG% 0.200 Normal 0.0-0.9 [facility] Comment on above: Result Comment: IG% - Immature Granulocytes (promyelocytes, myelocytes and metamyelocytes) > 1% indicates that a LEFT SHIFT is Present. Performed By: #### L 500.4050, L501.5200 #### [facility] [address] [place], [address] Lymphocytes/100 WBC (Bld) 19.9 % Normal 19-41 [facility] Comment on above: Performed By: #### L 500.4050, L501.5200 #### [facility] [address] [place], [address] MCH (RBC) [Entitic mass] 28.7 pg Normal 27.0-32.0 [facility] Comment on above: Performed By: #### L 500.4050, L501.5200 #### [facility] [address] [place], [address] MCHC (RBC) [Mass/Vol] 33.3 g/dL Normal 32-36 [facility] Comment on above: Performed By: #### L 500.4050, L501.5200 #### [facility] [address] [place], [address] MCV (RBC) [Entitic vol] 86.2 fL Normal 81-99 [facility] Comment on above: Performed By: #### L 500.4050, L501.5200 #### [facility] [address] [place], [address] Monocytes/100 WBC (Bld) 8.6 % Normal 0-10 [facility] Comment on above: Performed By: #### L 500.4050, L501.5200 #### [facility] [address] [place], [address] Neutrophils/100 WBC (Bld) 69.8 % Normal 47-70 [facility] Comment on above: Performed By: #### L 500.4050, L501.5200 #### [facility] [address] [place], [address] Nucleated RBC (Bld) [#/Vol] 0 10*3/uL Normal 0-5 [facility] Comment on above: Performed By: #### L 500.4050, L501.5200 #### [facility] [address] [place], [address] Platelet mean volume (Bld) [Entitic vol] 10.4 fL Normal 6.2-12.0 [facility] Comment on above: Performed By: #### L 500.4050, L501.5200 #### [facility] [address] [place], [address] Platelets (Bld) [#/Vol] 228 10*3/uL Normal 150-450 [facility] Comment on above: Performed By: #### L 500.4050, L501.5200 #### [facility] [address] [place], [address] RBC (Bld) [#/Vol] 4.49 10*6/uL Normal 4.2-5.4 [facility] Comment on above: Performed By: #### L 500.4050, L501.5200 #### [facility] [address] [place], [address] RDW SD 40.6 fl Normal 35.1-43.9 [facility] Comment on above: Performed By: #### L 500.4050, L501.5200 #### [facility] [address] [place], [address] WBC (Bld) [#/Vol] 6.0 10*3/uL Normal 4.4-11.0 [facility] Comment on above: Performed By: #### L 500.4050, L501.5200 #### [facility] [address] [place], [address] Comprehensive Metabolic Prof [facility] 02-18-2024 Albumin [Mass/Vol] 3.3 g/dL Normal 3.2-5.0 [facility] Comment on above: Performed By: #### L 500.4050, L501.5200 #### [facility] [address] [place], [address] Albumin/Globulin [Mass ratio] 1.0 {ratio} Normal 0.9-2.4 [facility] Comment on above: Performed By: #### L 500.4050, L501.5200 #### [facility] [address] [place], [address] ALK P 80 U/L Normal 45-117 [facility] Comment on above: Performed By: #### L 500.4050, L501.5200 #### [facility] [address] [place], [address] ALT [Catalytic activity/Vol] 14 U/L Normal 13-56 [facility] Comment on above: Performed By: #### L 500.4050, L501.5200 #### [facility] [address] [place], [address] AST [Catalytic activity/Vol] 12 U/L Low 15-37 [facility] Comment on above: Performed By: #### L 500.4050, L501.5200 #### [facility] [address] [place], [address] Bilirubin [Mass/Vol] 0.50 mg/dL Normal 0.20-1.00 [facility] Comment on above: Result Comment: For patients on eltrombopag therapy, use of Dimension [place] TBIL is not recommended. Performed By: #### L 500.4050, L501.5200 #### [facility] [address] [place], [address] BUN/CRE 18.3 RATIO Normal 10-20 [facility] Comment on above: Performed By: #### L 500.4050, L501.5200 #### [facility] [address] [place], [address] CA,Total 8.6 mg/dL Normal 8.5-10.1 [facility] Comment on above: Performed By: #### L 500.4050, L501.5200 #### [facility] [address] [place], [address] Chloride [Moles/Vol] 105 mmol/L Normal 98-107 [facility] Comment on above: Performed By: #### L 500.4050, L501.5200 #### [facility] [address] [place], [address] CO2 [Moles/Vol] 24.0 mmol/L Normal 21.0-32.0 [facility] Comment on above: Performed By: #### L 500.4050, L501.5200 #### [facility] [address] [place], [address] Creatinine [Mass/Vol] 1.26 mg/dL High 0.55-1.02 [facility] Comment on above: Result Comment: The validity of the calculated GFR GFRAA in patients over 70 years has not been determined. Clinical correlation is essential. Performed By: #### L 500.4050, L501.5200 #### [facility] [address] [place], [address] ECRCL 36.81 ml/min Normal [facility] Comment on above: Performed By: #### L 500.4050, L501.5200 #### [facility] [address] [place], [address] EST GFR - AA 54 mL/min Low >60 [facility] Comment on above: Result Comment: Afri can Israeli GFR Calc Performed By: #### L 500.4050, L501.5200 #### [facility] [address] [place], [address] GAP 9 Normal 5-15 [facility] Comment on above: Performed By: #### L 500.4050, L501.5200 #### [facility] [address] [place], [address] GFR/1.73 sq M.predicted among non-blacks MDRD (S/P/Bld) [Vol rate/Area] 44 mL/min/{1.73_m2} Low >60 [facility] Comment on above: Result Comment: Non- GFR Calc Performed By: #### L 500.4050, L501.5200 #### [facility] [address] [place], [address] Globulin (S) [Mass/Vol] 3.3 g/dL Normal 2.2-4.2 [facility] Comment on above: Performed By: #### L 500.4050, L501.5200 #### [facility] [address] [place], [address] Glucose [Mass/Vol] 105 mg/dL Normal 74-106 [facility] Comment on above: Result Comment: Fast ing Glucose result from 100 to 125 mg/dL suggests IMPAIRED HOMEOSTASIS per A.D.A. criteria. Performed By: #### L 500.4050, L501.5200 #### [facility] [address] [place], [address] Potassium [Moles/Vol] 3.7 mmol/L Normal 3.5-5.1 [facility] Comment on above: Performed By: #### L 500.4050, L501.5200 #### [facility] [address] [place], [address] Sodium [Moles/Vol] 138 mmol/L Normal 136-145 [facility] Comment on above: Performed By: #### L 500.4050, L501.5200 #### [facility] [address] [place], [address] T PROT 6.6 g/dL Normal 6.4-8.2 [facility] Comment on above: Performed By: #### L 500.4050, L501.5200 #### [facility] [address] [place], [address] Urea nitrogen [Mass/Vol] 23 mg/dL High 7-18 [facility] Comment on above: Performed By: #### L 500.4050, L501.5200 #### [facility] [address] [place], [address] Discharge Instructionon Discharge Instruction [facility] Medical Records Department [address] [place] [address] Instructions for Home/Discharge Instructions 02/18/24 1426 MR#: [id number] Acct: [id number] Name: BONY HUANG Rep #: [id number] : 1950 74 From: Cathleen Abdalla MD PCP: Dr. Cheikh Pinto MD Status:ADM NANCY Discharge Instructions Diet Discharge Diet: Low fat / Low cholesterol Activity Discharge Activity: Return to Normal Activity Weight Bearing Status: Weight bearing as tolerated Dressing / Incision Call your doctor if you observe: Fever of 101 or Higher, Dizziness, Chest pain and - (nausea and vomiting) Follow Up Care Test Results: Test results from this visit will be discussed in further detail at your follow-up appointment, if applicable. Discharge Plan Admission Admit Date/Time: 02/17/24 17:23 Primary Reason for Your Visit: nausea and vomiting, gastroparesis Attending Provider: Cathleen Abdalla Primary Care Provider: Cheikh Pinto Consulting Providers: Vaishali Ren Instructions Patient Instructions: Gastroparesis Additional Instructions / Restrictions: see PCP for repeat BMP within 2-3 days to evaluate kidney function Discharge Orders/Prescriptions Prescriptions: Continued melatonin 5 mg capsule 5 mg PO DAILY cholecalciferol (vitamin D3) 25 mcg (1,000 unit) capsule 25 mcg PO QDAY potassium iodide 65 mg tablet 130 mg PO DAILY pantoprazole 20 mg tablet,delayed release (DR/EC) 20 mg PO 4XD levothyroxine 88 mcg tablet 88 mcg PO DAILY Qty: 90 3RF Motegrity 2 mg tablet 2 mg PO DAILY Qty: 90 1RF Referrals / Follow Up: Cheikh Pinto MD [Primary Care Provider] - Within 1 Week Disposition Disposition (needs filled in before D/C Order can be placed): Home, Self Care 02/18/24 1426 Cathleen Abdalla MD CC: Dr. Cheikh Pinto MD; Dr. Vaishali Ren MD Signed Normal [facility] ENTERIC PATHOGEN PANEL STOOL on 02-18-2024 EP PANEL Is the patient receiving laxatives? N New/unexplained onset of 3 or more stools in past 24 hrs? Y CAMPYLOBACTER Not Detected Norovirus Not Detected Rotavirus Not Detected Salmonella Not Detected Shiga Toxin Not Detected Shigella sp. Not Detected VIBRIO Not Detected Yersinia Not Detected Normal [facility] Comment on above: Performed By: #### L 500.4050, L501.5200 #### [facility] [address] [place], [address] Magnesiumon 02-18-2024 Magnesium [Mass/Vol] 1.9 mg/dL Normal 1.6-2.6 [facility] Comment on above: Performed By: #### L 100.0100 #### [facility] [address] [place], [address] Thyroid Stim Hormone (TSH)on 02-18-2024 TSH 1.040 uIU/mL Normal 0.358-3.740 [facility] Comment on above: Performed By: #### L 100.0100 #### [facility] [address] [place], [address] CBC W/Diff, Automatedon 11-0 Absolute Lymph 0.69 X10 3/uL Low 0.83-4.51 [facility] Comment on above: Performed By: #### L 100.0100 #### [facility] [address] [place], [address] Absolute Neut 6.9 X10 3/uL Normal 2.0-7.7 [facility] Comment on above: Performed By: #### L 100.0100 #### [facility] [address] [place], [address] Basophils/100 WBC (Bld) 0.5 % Normal 0-1 [facility] Comment on above: Performed By: #### L 100.0100 #### [facility] [address] [place], [address] Eosinophils/100 WBC (Bld) 0.2 % Normal 0-5 [facility] Comment on above: Performed By: #### L 100.0100 #### [facility] [address] [place], [address] Erythrocyte distribution width (RBC) [Ratio] 12.9 % Normal 11.6-14.6 [facility] Comment on above: Performed By: #### L 100.0100 #### [facility] [address] [place], [address] Hematocrit (Bld) [Volume fraction] 51.3 % High 37-47 [facility] Comment on above: Performed By: #### L 100.0100 #### [facility] [address] [place], [address] Hemoglobin (Bld) [Mass/Vol] 17.4 g/dL High 12.0-15.0 [facility] Comment on above: Performed By: #### L 100.0100 #### [facility] [address] [place], [address] IG% 0.500 Normal 0.0-0.9 [facility] Comment on above: Result Comment: IG% - Immature Granulocytes (promyelocytes, myelocytes and metamyelocytes) > 1% indicates that a LEFT SHIFT is Present. Performed By: #### L 100.0100 #### [facility] [address] [place], [address] Lymphocytes/100 WBC (Bld) 8.4 % Low 19-41 [facility] Comment on above: Performed By: #### L 100.0100 #### [facility] [address] [place], [address] MCH (RBC) [Entitic mass] 29.0 pg Normal 27.0-32.0 [facility] Comment on above: Performed By: #### L 100.0100 #### [facility] [address] [place], [address] MCHC (RBC) [Mass/Vol] 33.9 g/dL Normal 32-36 [facility] Comment on above: Performed By: #### L 100.0100 #### [facility] [address] [place], [address] MCV (RBC) [Entitic vol] 85.5 fL Normal 81-99 [facility] Comment on above: Performed By: #### L 100.0100 #### [facility] [address] [place], [address] Monocytes/100 WBC (Bld) 6.1 % Normal 0-10 [facility] Comment on above: Performed By: #### L 100.0100 #### [facility] [address] [place], [address] Neutrophils/100 WBC (Bld) 84.3 % High 47-70 [facility] Comment on above: Performed By: #### L 100.0100 #### [facility] [address] [place], [address] Nucleated RBC (Bld) [#/Vol] 0 10*3/uL Normal 0-5 [facility] Comment on above: Performed By: #### L 100.0100 #### [facility] [address] [place], [address] Platelet mean volume (Bld) [Entitic vol] 9.9 fL Normal 6.2-12.0 [facility] Comment on above: Performed By: #### L 100.0100 #### [facility] [address] [place], [address] Platelets (Bld) [#/Vol] 322 10*3/uL Normal 150-450 [facility] Comment on above: Performed By: #### L 100.0100 #### [facility] [address] [place], [address] RBC (Bld) [#/Vol] 6.00 10*6/uL High 4.2-5.4 [facility] Comment on above: Performed By: #### L 100.0100 #### [facility] [address] [place], [address] RDW SD 39.9 fl Normal 35.1-43.9 [facility] Comment on above: Performed By: #### L 100.0100 #### [facility] [address] [place], [address] WBC (Bld) [#/Vol] 8.2 10*3/uL Normal 4.4-11.0 [facility] Comment on above: Performed By: #### L 100.0100 #### [facility] [address] [place], [address] Comprehensive Metabolic Prof ilon 02-17-2024 Albumin [Mass/Vol] 4.9 g/dL Normal 3.2-5.0 [facility] Comment on above: Performed By: #### L 500.4050, L501.5200 #### [facility] [address] [place], [address] Albumin/Globulin [Mass ratio] 1.0 {ratio} Normal 0.9-2.4 [facility] Comment on above: Performed By: #### L 500.4050, L501.5200 #### [facility] [address] [place], [address] ALK P 117 U/L Normal 45-117 [facility] Comment on above: Performed By: #### L 500.4050, L501.5200 #### [facility] [address] [place], [address] ALT [Catalytic activity/Vol] 22 U/L Normal 13-56 [facility] Comment on above: Performed By: #### L 500.4050, L501.5200 #### [facility] [address] [place], [address] AST [Catalytic activity/Vol] 13 U/L Low 15-37 [facility] Comment on above: Performed By: #### L 500.4050, L501.5200 #### [facility] [address] [place], [address] Bilirubin [Mass/Vol] 0.60 mg/dL Normal 0.20-1.00 [facility] Comment on above: Result Comment: For patients on eltrombopag therapy, use of Dimension [place] TBIL is not recommended. Performed By: #### L 500.4050, L501.5200 #### [facility] [address] [place], [address] BUN/CRE 9.3 RATIO Low 10-20 [facility] Comment on above: Performed By: #### L 500.4050, L501.5200 #### [facility] [address] [place], [address] CA,Total 10.6 mg/dL High 8.5-10.1 [facility] Comment on above: Performed By: #### L 500.4050, L501.5200 #### [facility] [address] [place], [address] Chloride [Moles/Vol] 94 mmol/L Low 98-107 [facility] Comment on above: Performed By: #### L 500.4050, L501.5200 #### [facility] [address] [place], [address] CO2 [Moles/Vol] 32.0 mmol/L Normal 21.0-32.0 [facility] Comment on above: Performed By: #### L 500.4050, L501.5200 #### [facility] [address] [place], [address] Creatinine [Mass/Vol] 2.37 mg/dL High 0.55-1.02 [facility] Comment on above: Result Comment: The validity of the calculated GFR GFRAA in patients over 70 years has not been determined. Clinical correlation is essential. Performed By: #### L 500.4050, L501.5200 #### [facility] [place] [facility] [address] [place], [address] ECRCL 19.45 ml/min Normal [facility] Comment on above: Performed By: #### L 500.4050, L501.5200 #### [facility] [address] [place], [address] EST GFR - AA 26 mL/min Low >60 [facility] Comment on above: Result Comment: Afri can Israeli GFR Calc Performed By: #### L 500.4050, L501.5200 #### [facility] [address] [place], [address] GAP 12 Normal 5-15 [facility] Comment on above: Performed By: #### L 500.4050, L501.5200 #### [facility] [address] [place], [address] GFR/1.73 sq M.predicted among non-blacks MDRD (S/P/Bld) [Vol rate/Area] 21 mL/min/{1.73_m2} Low >60 [facility] Comment on above: Result Comment: Non- GFR Calc Performed By: #### L 500.4050, L501.5200 #### [facility] [address] [place], [address] Globulin (S) [Mass/Vol] 4.7 g/dL High 2.2-4.2 [facility] Comment on above: Performed By: #### L 500.4050, L501.5200 #### [facility] [address] [place], [address] Glucose [Mass/Vol] 141 mg/dL High 74-106 [facility] Comment on above: Result Comment: Fast ing Glucose result greater than or equal to 126 mg/dL suggests DIABETES MELLITUS per A.D.A. criteria. Performed By: #### L 500.4050, L501.5200 #### [facility] [address] [place], [address] Potassium [Moles/Vol] 3.3 mmol/L Low 3.5-5.1 [facility] Comment on above: Performed By: #### L 500.4050, L501.5200 #### [facility] [address] [place], [address] Sodium [Moles/Vol] 138 mmol/L Normal 136-145 [facility] Comment on above: Performed By: #### L 500.4050, L501.5200 #### [facility] [address] [place], [address] T PROT 9.6 g/dL High 6.4-8.2 [facility] Comment on above: Performed By: #### L 500.4050, L501.5200 #### [facility] [address] [place], [address] Urea nitrogen [Mass/Vol] 22 mg/dL High 7-18 [facility] Comment on above: Performed By: #### L 500.4050, L501.5200 #### [facility] [address] [place], [address] Emergency Department Summary on 02-17-[address] [facility] Medical Records Department [address] [place] [address] Emergency Department Summary 02/17/24 MR#: [id number] Acct: [id number] Name: BONY HUANG Rep #: [id number] : 1950 74 From: Narinder Gomez DO PCP: Dr. Cheikh Pinto MD Status:ADM IN [id number] HPI History of Present Illness Chief Complaint: Nausea/Vomiting/Diar richie Narrative Narrative: Chief complaint and HPI: Nausea and vomiting. 74-year-old female with history of gastroparesis presents for evaluation of nausea and vomiting. 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 She states her gastroparesis has worsened in the past 5 years. Patient states that periodically her gastroparesis flares up. She states it starts with about 24 hours of diarrhea and then leads to nausea and vomiting. Patient states that usually resolves with fluids and antinausea medication. Patient states yesterday she developed diarrhea which has since resolved. She now endorses nausea and vomiting. Decreased p.o. intake. Denies any fever, chills, shortness of breath, cough, URI symptoms, chest pain, abdominal pain, dysuria, hematuria, constipation, bloody bowel movements. Patient states that this feels like her typical gastroparesis flare. Review of systems: See HPI Medications: As listed on the chart Allergies: As listed on the chart PFSH: Per chart Vital signs: As listed on the chart. Reviewed. Physical exam: Gen: A O x3, NAD Head: Normocephalic, atraumatic Eyes: No sclera icterus, conjunctiva clear ENT: Mildly dry mucous membranes Neck: Trachea midline, No JVD CV: RRR, no murmurs, no peripheral edema Resp: Lungs CTA BL, no w/r/c GI: Abd soft, non-distended, non-tender, no r/r/g Musc: Full ROM, no deformity Skin: Warm, dry Neuro: Alert, oriented, grossly intact, sensation intact Psych: Cooperative, appropriate mood and affect [facility] Medical History Hypothyroidism polypectomy Gastroparesis Carcinoid tumor Home Medications ???Medication ???Instructions ???Recorded ???Last Taken ???Type melatonin 5 mg capsule 5 mg PO DAILY 10/25/22 02/16/24 History levothyroxine 88 mcg tablet 88 mcg PO DAILY #90 tabs 07/05/23 02/17/24 Rx prucalopride 2 mg tablet 2 mg PO DAILY #90 tabs 01/09/24 02/16/24 Rx (Motegrity) cholecalciferol (vitamin D3) 25 25 mcg PO QDAY 01/23/24 02/17/24 History mcg (1,000 unit) capsule pantoprazole 20 mg tablet,delayed 20 mg PO 4XD 02/17/24 02/17/24 History release potassium iodide 65 mg tablet 130 mg PO DAILY 02/17/24 02/16/24 History Allergy/AdvReac Type Severity Reaction Status Date / Time Sulfa (Sulfonamide Allergy Mild Rash Verified 02/17/24 13:45 Antibiotics) sulfamethoxazole (From Allergy Mild rash Verified 02/17/24 13:45 Bactrim) trimethoprim (From Bactrim) Allergy Mild rash Verified 02/17/24 13:45 aspirin AdvReac Mild nose bleed Verified 02/17/24 13:45 Family History Father Heart disease Myocardial infarction Mother CVA (cerebral vascular accident) Thyroid disorder Cancer Asthma Breast cancer Sister Cancer Surgical History H/O: hysterectomy Social History Smoking Status: Never smoker alcohol intake: never substance use type: does not use EXAM Physical Exam Const Vital Signs: 02/17/24 13:45 02/17/24 15:44 02/17/24 17:00 Temperature 97.4 F L 98.1 F Temperature Source Temporal Oral Pulse Rate 94 71 74 Respiratory Rate 16 16 16 Blood Pressure 115/84 H 152/82 H 130/78 H Blood Pressure Mean 94 105 95 Pulse Ox 97 97 98 Oxygen Delivery Method Room Air Room Air 02/17/24 17:04 Temperature 98.1 F Temperature Source Pulse Rate 74 Respiratory Rate 16 Blood Pressure 130/78 H Blood Pressure Mean 95 Pulse Ox 98 Oxygen Delivery Method MDM MDM MDM Narrative Medical decision making narrative: 74-year-old female with history of gastroparesis presents for evaluation of nausea and vomiting. Patient states that this feels like her typical gastroparesis flare. Physical exam is unremarkable except for mildly dry mucous membranes. Abdomen is benign. Differential diagnosis includes but is not limited to gastroparesis flare, viral illness, electrolyte abnormality, dehydration, ALICIA, UTI. NS bolus and Reglan ordered for symptoms. Basic labs ordered including urine. I do not think any imaging is needed at this time. CBC without leukocytosis. Patient has hemoconcentration with a hemoglobin of 17.4. This is consistent with dehydration. CMP witho (more content not included)... Normal [facility] H AND P Exam - [facility] 02-17-2024 H&P Exam - Hospitalist [facility] Medical Records Department [address] [place] [address] H P Exam - Hospitalist 02/17/24 1723 MR#: [id number] Acct: [id number] Name: BONY HUANG Rep #: [id number] : 1950 74 From: Vaishali Ren MD PCP: Dr. Cheikh Pinto MD Status:ADM NANCY Location: [facility] [id number] HPI - General General Date of Admission: 02/17/24 Date of Service: 02/17/24 Chief Complaint: N/V/Diarrhea HPI Narrative BONY HUANG, is a 74-year-old female history of hypothyroidism, GERD, gastroparesis and distant history of carcinoid tumor with resection presented to [facility] ED 02/17/24 for worsening nausea and vomiting.??? Her gastroparesis is worsened over the past 5 years and she periodically has gastroparesis flares which usually start with 24 hours of diarrhea which lead to nausea and vomiting and these events usually resolve with fluids and antiemetics.??? She had diarrhea yesterday which is since resolved and is now endorsing nausea and vomiting with decreased p.o. intake.??? In the ED patient with ALICIA with creatinine of 2.37, patient given IV fluids and hospitalist contacted for admission. Patient evaluated at bedside. She reports that she has history of gastroparesis and has flares roughly once a week, her flares usually start with diarrhea and when she is volume depleted she has nausea and vomiting. Had an episode on Saturday that resolved but then resumed yesterday evening with diarrhea roughly every hour and this morning with nausea and vomiting every couple of hours, she said this is just like her usual gastroparesis flare since she goes to [facility] but today when she went there there was a very large line so she opted to come to our hospital instead. She reports she usually does not get admitted and just gets antiemetics and IV fluids and then goes home. She denies any fevers or chills, she has no abdominal pain, no urinary symptoms, did note some darker urine this morning but has not had any suprapubic tenderness, urinary frequency, urgency, burning. Does have history of UTIs and said her main symptom is usually lower abdominal pain which she does not have at this time. Denies any other new or acute complaints. [facility] Medical History (Updated 02/17/24 @ 17:[address] Vaishali Ren MD) Carcinoid tumor Gastroparesis Hypothyroidism polypectomy Home Medications ???Medication ???Instructions ???Recorded ???Last Taken ???Type melatonin 5 mg capsule 5 mg PO DAILY 10/25/22 02/16/24 History levothyroxine 88 mcg tablet 88 mcg PO DAILY #90 tabs 07/05/23 02/17/24 Rx prucalopride 2 mg tablet 2 mg PO DAILY #90 tabs 01/09/24 02/16/24 Rx (Motegrity) cholecalciferol (vitamin D3) 25 25 mcg PO QDAY 01/23/24 02/17/24 History mcg (1,000 unit) capsule pantoprazole 20 mg tablet,delayed 20 mg PO 4XD 02/17/24 02/17/24 History release potassium iodide 65 mg tablet 130 mg PO DAILY 02/17/24 02/16/24 History Allergy/AdvReac Type Severity Reaction Status Date / Time Sulfa (Sulfonamide Allergy Mild Rash Verified 02/17/24 13:45 Antibiotics) sulfamethoxazole (From Allergy Mild rash Verified 02/17/24 13:45 Bactrim) trimethoprim (From Bactrim) Allergy Mild rash Verified 02/17/24 13:45 aspirin AdvReac Mild nose bleed Verified 02/17/24 13:45 Family History Father Heart disease Myocardial infarction Mother CVA (cerebral vascular accident) Thyroid disorder Cancer Asthma Breast cancer Sister Cancer Surgical History H/O: hysterectomy Social History Smoking Status: Never smoker alcohol intake: never substance use type: does not use ROS ROS Narrative General: Denies fever/chills HENT: Denies headache, chronic stuffy nose, denies sore throat EYES: Denies changes in vision Resp: Denies cough, denies shortness of breath Cardiac: Denies chest pain GI: Denies abdominal pain, frequent diarrhea, nausea and vomiting : Denies changes in urination Extremity: Denies swelling MSK: Denies weakness Neuro: Denies any numbness/tingling Heme: Denies any bleeding or bruising Skin: Denies rashes Psychiatric: No complaints voiced Vital Signs Vital Signs Vital Signs: 02/17/24 13:45 02/17/24 15:44 02/17/24 17:00 Temperature 97.4 F L 98.1 F Temperature Source Temporal Oral Pulse Rate 94 71 74 Respiratory Rate 16 16 16 Blood Pressure 115/84 H 152/82 H 130/78 H Blood Pressure Mean 94 105 95 Pulse Ox 97 97 98 Oxygen Delivery Method Room Air Room Air 02/17/24 17:04 Temperature 98.1 F Temperature Source Pulse Rate 74 Respiratory Rate 16 Blood Pressure 130/78 H Blood Pressure Mean 95 Pulse Ox 98 Oxygen Del (more content not included)... Normal [facility] Magnesiumon 02-17-2024 Magnesium [Mass/Vol] 2.1 mg/dL Normal 1.6-2.6 [facility] Comment on above: Performed By: #### L 500.4050, L501.5200 #### [facility] [address] [place], [address] Urinalysis, Completeon 02-16 BACTERIA 1+ /hpf Normal None Seen [facility] Comment on above: Order Comment: COLOR OF URINE MAY AFFECT DIPSTICK RESULTS. CLEAN CATCH Performed By: #### L 400.0001 #### [facility] [address] [place], [address] EPI,RENAL 0-5 SEEN Normal 0-5 [facility] Comment on above: Order Comment: COLOR OF URINE MAY AFFECT DIPSTICK RESULTS. CLEAN CATCH Performed By: #### L 400.0001 #### [facility] [address] [place], [address] EPI,TRANSITION 0-5 SEEN Normal 0-5 [facility] Comment on above: Order Comment: COLOR OF URINE MAY AFFECT DIPSTICK RESULTS. CLEAN CATCH Performed By: #### L 400.0001 #### [facility] [address] [place], [address] CA OX CRYSTAL 1+ /hpf Normal [facility] Comment on above: Order Comment: COLOR OF URINE MAY AFFECT DIPSTICK RESULTS. CLEAN CATCH Performed By: #### L 400.0001 #### [facility] [address] [place], [address] CAST,WBC 0-5 SEEN Normal None Seen [facility] Comment on above: Order Comment: COLOR OF URINE MAY AFFECT DIPSTICK RESULTS. CLEAN CATCH Performed By: #### L 400.0001 #### [facility] [address] [place], [address] CAST,FINE GRAN 0-5 SEEN Normal 0-5 [facility] Comment on above: Order Comment: COLOR OF URINE MAY AFFECT DIPSTICK RESULTS. CLEAN CATCH Performed By: #### L 400.0001 #### [facility] [address] [place], [address] EPI,SQUAMOUS 0-5 SEEN Normal 5-10 [facility] Comment on above: Order Comment: COLOR OF URINE MAY AFFECT DIPSTICK RESULTS. CLEAN CATCH Performed By: #### L 400.0001 #### [facility] [address] [place], [address] Mucus Ql (Urine sed) 3+ /hpf Normal [facility] Comment on above: Order Comment: COLOR OF URINE MAY AFFECT DIPSTICK RESULTS. CLEAN CATCH Performed By: #### L 400.0001 #### [facility] [address] [place], [address] CAST,HYALINE 50-100 SEEN Normal 0-5 [facility] Comment on above: Order Comment: COLOR OF URINE MAY AFFECT DIPSTICK RESULTS. CLEAN CATCH Performed By: #### L 400.0001 #### [facility] [address] [place], [address] WBC 10-25 SEEN Normal 0-5 [facility] Comment on above: Order Comment: COLOR OF URINE MAY AFFECT DIPSTICK RESULTS. CLEAN CATCH Performed By: #### L 400.0001 #### [facility] [address] [place], [address] RBC 0 SEEN Normal 0-5 [facility] Comment on above: Order Comment: COLOR OF URINE MAY AFFECT DIPSTICK RESULTS. CLEAN CATCH Performed By: #### L 400.0001 #### [facility] [address] [place], [address] ANES POSTPROC EVALon 024 ANES POSTPROC EVAL HNO ID: [id number] Author: MATT KAT MD Service: ? Author Type: Anesthesiologist Type: Anesthesia Postprocedure Evaluation Filed: 10/16/2023 12:50 Note Text: POST ANESTHESIA EVALUATION NOTE : 1950 Procedure Summary Date: 10/16/23 Room / Location: [facility] Endoscopy Anesthesia Start: 1125 Anesthesia Stop: 1143 Procedure: EGD DIAGNOSTIC Diagnosis: Dysphagia, unspecified type (Dysphagia) Scheduled Providers: Bina Overton MD; Stephen Arguelles APRN.CLINICAL DENTAL TECHNICIAN; Matt Kat MD Responsible Provider: Matt Kat MD Anesthesia Type: MAC ASA Status: 3 Anesthesia Type: MAC Last Vitals Vitals Value Taken Time BP 184/84 10/16/23 1222 Temp 36.4 ?C (97.5 ?F) 10/16/23 1145 Pulse 61 10/16/23 1221 Resp 18 10/16/23 1219 SpO2 99 % 10/16/23 1221 Vitals shown include unfiled device data. Post Anesthesia Patient Status Patient Evaluation: bedside. Anticipated Disposition: phase 2 then home. Neurological Status: aware and responsive. Pulmonary Status: breathing comfortably on room air Airway Control: returned to baseline unsupported. Cardiovascular Status: stable. Pain Management: clinically adequate Postoperative Hydration: acceptable. Intraoperative Events: no significant anesthesia events Post Operative Nausea/Vomiting Status: no significant post operative nausea or vomiting Recommendation: continue current plan of care. Anesthesia Observations No Documentation SIGNATURE: Matt Kat MD PATIENT NAME: Bony Huang DATE: October 16, 2023 TIME: 12:49 PM CSN: [id number] Normal [facility] ANES PRE-OPon 10-16-2023 ANES PRE-OP HNO ID: [id number] Author: MATT KAT MD Service: ? Author Type: Anesthesiologist Type: Anesthesia Preprocedure Evaluation Filed: 10/16/2023 09:55 Note Text: ANESTHESIOLOGY DAY OF SURGERY NOTE : 1950 Procedure Information Date/Time: 10/16/23 1215 Scheduled providers: Bina Overton MD; Stephen Arguelles APRN.CLINICAL DENTAL TECHNICIAN; Matt Kat MD Procedure: EGD DIAGNOSTIC Location: [facility] Endoscopy Estimated body mass index is 29.15 kg/m? as calculated from the following: Height as of 09/16/23: 157.5 cm (5' 2). Weight as of 09/16/23: 72.3 kg (159 lb 6.4 oz). Most recent hematocrit and potassium results: Hematocrit 40.9 11/07/2018 Potassium 3.8 11/07/2018 Relevant Problems ENDO (+) Acquired hypothyroidism (+) Hypothyroid GI (+) GERD (gastroesophageal reflux disease) I - PHYSICAL EVALUATION AIRWAY Patient intubated: No. Tracheostomy tube not present Mallampati: II. TM distance: >3 FB. Neck ROM: full ROM without neurological symptoms. Mouth opening: adequate. Short neck: no. Thick neck: no DENTAL Dental findings: teeth intact. II - ANESTHESIA PLAN ASA Score: 3 Anesthetic Plan: MAC The patient is not a current smoker. Beta Marilin Monitoring Plan Monitoring plan: standard ASA. Post Procedure Analgesic Plan Postoperative analgesic plan: other. Informed Consent Anesthetic risks, benefits, alternatives, personnel and consent discussed: yes. Patient / Responsible [employer] agrees to proceed: yes Patient / Surrogate agrees to blood products: Yes DNR status not reviewed with patient and/or family prior to surgery. Significant changes in the patient condition since the History and Physical, not otherwise documented in primary service progress note: no. Potential Anesthesia issues that may suggest increased risk of complications or contraindication to planned procedure: none. Vitals Value Taken Time BP 181/90 10/16/23 0930 Pulse Resp 16 10/16/23 0930 Temp 36.5 ?C (97.7 ?F) 10/16/23 0930 SpO2 98 % 10/16/23 0930 Outpatient Medications as of 10/16/2023 Medication Sig prucalopride (MOTEGRITY) 2 mg tab tablet Take 2 mg by mouth once daily. potassium chloride (K-TAB) 10 mEq tablet Take 10 mEq by mouth two times a day. Cholecalciferol, Vitamin D3, (VITAMIN D-3) 50 mcg (2,000 unit) cap Take by mouth. levothyroxine (SYNTHROID) 88 mcg tablet Take 88 mcg by mouth daily before breakfast. pantoprazole DR (PROTONIX) 20 mg tablet Take 20 mg by mouth every evening. oxymetazoline (AFRIN, OXYMETAZOLINE,) 0.05 % nasal spray Use 2 Sprays in the nose as needed. cetirizine (ZYRTEC) 10 mg tablet Take 1 tablet by mouth once daily. ondansetron (ZOFRAN) 4 mg tablet Take by mouth every 8 hours as needed for nausea/vomiting. [place]-3 Fatty Acids 500 mg cap Take 500 mg by mouth once daily. multivit/iron/FA/K/h erb no.244 (ALIVE WOMEN'S ENERGY ORAL) Take 2 capsules by mouth once daily. B Complex Vitamins capsule Take 1 capsule by mouth daily before breakfast. promethazine (PHENERGAN) 12.5 mg tablet Take 12.5 mg by mouth every 8 hours as needed for nausea/vomiting. ciprofloxacin HCl (CIPRO) 500 mg tablet Take 250 mg by mouth twice daily. levothyroxine (SYNTHROID) 75 mcg tablet Take 1 tablet by mouth DAILY (6 AM). (Patient taking differently: Take 100 mcg by mouth once daily. ) TRANSDERM-SCOP 1.5 MG TRANSDERMAL PATCH (1 MG OVER 3 DAYS) D-MANNOSE ORAL Take 1,000 mg by mouth twice daily. Multivitamins-Iron (DAILY MULTI-VITAMINS/IRON) tab Take 1 tablet by mouth twice daily. lactobacillus rhamnosus R0011 (PROBIOTIC DIGESTIVE CARE) 20 billion cell cap Take 1 Can by mouth once daily. (Patient taking differently: Take 1 capsule by mouth daily with breakfast.) Facility-Administere d Medications as of 10/16/2023 Medication Dose Route Frequency lidocaine (PF) 10 mg/mL (1 %) 1-2 mg injection (XYLOCAINE) 0.1-0.2 mL INTRADERMAL PRN lactated ringers iv infusion 30 mL/hr INTRAVENOUS CONTINUOUS I have interviewed and examined the patient. I have reviewed the medical record and/or the pre-anesthesia evaluation, pertinent labs, and test results. This contains updated information obtained within 48 hours of Surgery/Procedure. SIGNATURE: Matt Kat MD PATIENT NAME: Bony Huang DATE: October 16, 2023 TIME: 9:54 AM CSN: [id number] Normal [facility] EGD Study observation Saroj medrano 10-16-2023 [facility] Gastrointestinal Endoscopy Patient Name: Bony Huang Procedure Date: 10/16/2023 10:28 AM Date of : 1950 Admit Type: Outpatient Age: 73 Room: [facility] Gender: Female Note Status: Finalized Attending MD: Bina Overton MD, [id number] Procedure: Upper GI endoscopy Indications: Dysphagia Providers: Bina Overton MD Patient Profile: Refer to note in patient chart for documentation of history and physical. Referring Physician: Bina Overton MD (Referring MD) Medicines: See the Anesthesia note for documentation of the administered medications Complications: No immediate complications. Requesting Provider: Procedure: Pre-Anesthesia Assessment: - Monitored anesthesia care under the supervision of a CLINICAL DENTAL TECHNICIAN was determined to be medically necessary for this procedure based on review of the patient's medical history, medications, and prior anesthesia history. After obtaining informed consent, the endoscope was passed under direct vision. Throughout the procedure, the patient's blood pressure, pulse, and oxygen saturations were monitored continuously. The Endoscope was introduced through the mouth, and advanced to the second part of duodenum. The upper GI endoscopy was accomplished without difficulty. The patient tolerated the procedure well. Moderate Sedation: MAC anesthesia was administered by the anesthesia team. Total Procedure Duration: 0 hours 8 minutes 12 seconds Findings: Diffuse mildly erythematous mucosa without active bleeding and with no stigmata of bleeding was found in the duodenal bulb. Biopsies were taken with a cold forceps for histology. Verification of patient identification for the specimen was done by the nurse. Estimated blood loss was minimal. Diffuse mild inflammation was found in the gastric antrum. Biopsies were taken with a cold forceps for histology. Verification of patient identification for the specimen was done by the nurse. Estimated blood loss was minimal. A medium-sized hiatal hernia was present. Biopsies were taken with a cold forceps for histology of mid esophagus to rule out EE. Verification of patient identification for the specimen was done by the nurse. Estimated blood loss was minimal. Impression: - Erythematous duodenopathy. Biopsied. - Gastritis. Biopsied. - Medium-sized hiatal hernia. Biopsied mid esophagus for EE. Recommendation: - Discharge patient to home (ambulatory). - Resume previous diet. - Continue present medications. - Await pathology results. - Follow up with Tricia Marrufo NP via televisit for discussion of pathology results and determination of timing of future endoscopies Procedure Code(s): --- Professional --- 09968, Esophagogastroduoden oscopy, flexible, transoral; with biopsy, single or multiple Diagnosis Code(s): --- Professional --- R13.10, Dysphagia, unspecified K44.9, Diaphragmatic hernia without obstruction or gangrene K29.70, Gastritis, unspecified, without bleeding K31.89, Other diseases of stomach and duodenum CPT copyright 2020 [employer]. All rights reserved. The codes documented in this report are preliminary and upon bisque cleaner review may be revised to meet current compliance requirements. Attending Participation: I personally performed the entire procedure. Scope In: 11:31:03 AM Scope Out: 11:39:15 AM MD Bina Christy MD 10/16/2023 11:42:53 AM This report has been signed electronically by Bina Overton MD Number of Addenda: 0 Note Initiated On: 10/16/2023 10:28 AM Estimated Blood Loss: Estimated blood loss was minimal. PROVATION [facility] Radiology Study observation (narrative) [facility] HISTORY PHYSICALon HISTORY PHYSICAL HNO ID: [id number] Author: BINA OVERTON MD Service: General Surgery Author Type: Physician Type: H&P Filed: 10/16/2023 09:26 Note Text: HISTORY AND PHYSICAL Bony Huang 1950 REFERRING PHYSICIAN: No ref. provider found CHIEF COMPLAINT: No chief complaint on file. HPI: The patient is a 73 year old female referred for endoscopy. Bony notes dysphagia. She also complains of epigastric fullness. She has been diagnosed with gastroparesis and chronic constipation, followed by GI medicine at [facility] for years. She complains of swallowing difficulties. She had previous EGD in 2019. She also notes chronic intermittent emesis and diarrhea. This occurs a few times a week. She had history of carcinoid surgery > 20 years ago. She denies blood in emesis; denies blood in stools. 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 [facility] TOTAL ABDOM HYSTERECTOMY CURRENT MEDICATIONS Current Outpatient Medications Medication Sig [place]-3 Fatty Acids 500 mg cap Take 500 mg by mouth once daily. Cholecalciferol, Vitamin D3, (VITAMIN D-3) 50 mcg (2,000 unit) cap Take by mouth. levothyroxine (SYNTHROID) 88 mcg tablet Take 88 mcg by mouth daily before breakfast. multivit/iron/FA/K/h erb no.244 (ALIVE WOMEN'S ENERGY ORAL) Take 2 capsules by mouth once daily. B Complex Vitamins capsule Take 1 capsule by mouth daily before breakfast. promethazine (PHENERGAN) 12.5 mg tablet Take 12.5 mg by mouth every 8 hours as needed for Nausea/Vomiting. ciprofloxacin HCl (CIPRO) 500 mg tablet Take 250 mg by mouth twice daily. levothyroxine (SYNTHROID) 75 mcg tablet Take 1 tablet by mouth DAILY (6 AM). (Patient taking differently: Take 100 mcg by mouth once daily. ) pantoprazole DR (PROTONIX) 20 mg tablet Take 20 mg by mouth every evening. TRANSDERM-SCOP 1.5 MG TRANSDERMAL PATCH (1 MG OVER 3 DAYS) D-MANNOSE ORAL Take 1,000 mg by mouth twice daily. Multivitamins-Iron (DAILY MULTI-VITAMINS/IRON) tab Take 1 tablet by mouth twice daily. oxymetazoline (AFRIN, OXYMETAZOLINE,) 0.05 % nasal spray Use 2 Sprays in the nose as needed. cetirizine (ZYRTEC) 10 mg tablet Take 1 tablet by mouth once daily. lactobacillus rhamnosus R0011 (PROBIOTIC DIGESTIVE CARE) 20 billion cell cap Take 1 Can by mouth once daily. (Patient taking differently: Take 1 capsule by mouth daily with breakfast.) No current facility-administere d medications for this visit. ALLERGIES: Asa [Aspirin], Bactrim [Sulfamethoxazole], and Sulfa (Sulfonamide Antibiotics) PERSONAL HISTORY: SOCIAL HISTORY Social History Tobacco Use Smoking status: Never Smokeless tobacco: Never Substance Use Topics Alcohol use: Yes Comment: occasional Drug use: Never FAMILY HISTORY FAMILY HISTORY Problem Relation Age of Onset Thyroid Mother surgical hypothyroidism Lipids Mother Breast Cancer Mother macular degeneration other (atrial fibrillation) Mother Coronary Artery Disease Father premature with TN at around 27yo Colon Cancer Sister other (Fibromyalgia) Sister other (Other) Grandchild Chavis syndrome The review of systems data was entered by the nurse and reviewed by me Nursing Notes: Rosemarie Hope RN 09/16/2023 8:40 AM Signed REVIEW OF SYSTEMS: General: The patient denies fatigue, denies weight loss, denies weight gain, denies feeling hot, and denies feelings of cold. Eyes: The patient denies glaucoma, denies eye injury/surgery, does not wear glasses or contacts. Ear/Nose/Throat: The patient denies allergies, denies hayfever, denies ear infections, and denies bloody noses. Cardiovascular: The patient denies chest pain, denies heart disease, denies high blood pressure,denies cardiac stent, denies prior heart attack, denies irregular heart beat, denies high cholesterol, denies poor circulation, denies heart failure, other cardiac issues, denies claudication, denies cold feet, denies peripheral arterial stent. Respiratory: The patient denies tuberculosis, denies pneumonia, denies frequent cough, denies pulmonary embolism, denies shortness of breath, and denies coughing up blood. Gastrointestinal: The patient NOTES difficulty swallowing, NOTES acid reflux, denies ulcers, NOTES vomiting, denies jaundice/hepatitis, denies gallbladder problems, denies black or tarry stools, denies hemorrhoids, denies bleeding from rectum, denies diverticulitis, NOTES constipation, NOTES diarrhea, denies loss of stool control, and denies h (more content not included)... [facility] SURGICAL PATHOLOGYon CASE REPORT [facility] Comment on above: Order Comment: Speci men Type: TISSUE SPECIMEN Ordering Facility: [facility] Address: [address] [place] [address] Result Comment: Surg [facility] Pathology Report Case: [id number] Authorizing Provider: Bina Overton MD Collected: 10/16/2023 11:36 AM Ordering Location: [facility] Endoscopy Received: 10/16/2023 02:08 PM Pathologist: Moi Gregg MD Specimens: A) - Small Bowel, Duodenum, Biopsy, Duodenal Bulb Biopsy B) - Stomach, Antrum, Biopsy C) - Esophagus, Mid, Biopsy Performed By: #### S #### [facility] CLIA [id number] [address] [place] [address] [facility] FINAL DIAGNOSIS Normal [facility] Comment on above: Order Comment: Speci men Type: TISSUE SPECIMEN Ordering Facility: [facility] Address: [address] [place] [address] Result Comment: A. D uodenal bulb, biopsy: - Small bowel mucosa with no diagnostic abnormality. B. Stomach, biopsy: - Gastric antral-type and oxyntic-type mucosa with no diagnostic abnormality. C. Mid esophagus, biopsy: - Squamous mucosa with no diagnostic abnormality. JEL 10/18/2023 Performed By: #### S #### [facility] CLIA [id number] [address] [place] [address] [facility] FINAL PERFORMING LAB Normal [facility] Comment on above: Order Comment: Speci men Type: TISSUE SPECIMEN Ordering Facility: [facility] Address: [address] [place] [address] Result Comment: Diag nostic interpretation performed at [facility], [address] [place] [address] CLIA# [id number] [employer] Operator: Omi Reid M.D. Performed By: #### S #### [facility] CLIA [id number] [address] [place] [address] [facility] GROSS DESCRIPTION Normal [facility] Comment on above: Order Comment: Speci men Type: TISSUE SPECIMEN Ordering Facility: [facility] Address: [address] [place], [place] [id number] Result Comment: A. S mall Bowel, Duodenum, Biopsy Received in formalin is one piece of suarez, soft tissue measuring 0.2 x 0.2 x 0.1 cm. Totally submitted in one cassette. B. Stomach, Antrum, Biopsy Received in formalin are two pieces of suarez, soft tissue aggregating to 0.5 x 0.2 x 0.1 cm. Totally submitted in one cassette. C. Esophagus, Mid, Biopsy Received in formalin are two pieces of suarez-white, soft tissue aggregating to 0.4 x 0.2 x 0.1 cm. Totally submitted in one cassette. DB October 16, 2023 9:35 PM Gross examination performed at [facility], [address] [place] [address] Performed By: #### S #### [facility] CLIA [id number] [address] [place] [address] [facility] Upper GI endoscopy 024 Upper GI endoscopy [facility] Gastrointestinal Endoscopy Patient Name: Bony Huang Procedure Date: 10/16/2023 10:28 AM Date of : 1950 Admit Type: Outpatient Age: 73 Room: [facility] Gender: Female Note Status: Finalized Attending MD: Bina Overton MD, [id number] Procedure: Upper GI endoscopy Indications: Dysphagia Providers: Bina Overton MD Patient Profile: Refer to note in patient chart for documentation of history and physical. Referring Physician: Bina Overton MD (Referring MD) Medicines: See the Anesthesia note for documentation of the administered medications Complications: No immediate complications. Requesting Provider: Procedure: Pre-Anesthesia Assessment: - Monitored anesthesia care under the supervision of a CLINICAL DENTAL TECHNICIAN was determined to be medically necessary for this procedure based on review of the patient's medical history, medications, and prior anesthesia history. After obtaining informed consent, the endoscope was passed under direct vision. Throughout the procedure, the patient's blood pressure, pulse, and oxygen saturations were monitored continuously. The Endoscope was introduced through the mouth, and advanced to the second part of duodenum. The upper GI endoscopy was accomplished without difficulty. The patient tolerated the procedure well. Moderate Sedation: MAC anesthesia was administered by the anesthesia team. Total Procedure Duration: 0 hours 8 minutes 12 seconds Findings: Diffuse mildly erythematous mucosa without active bleeding and with no stigmata of bleeding was found in the duodenal bulb. Biopsies were taken with a cold forceps for histology. Verification of patient identification for the specimen was done by the nurse. Estimated blood loss was minimal. Diffuse mild inflammation was found in the gastric antrum. Biopsies were taken with a cold forceps for histology. Verification of patient identification for the specimen was done by the nurse. Estimated blood loss was minimal. A medium-sized hiatal hernia was present. Biopsies were taken with a cold forceps for histology of mid esophagus to rule out EE. Verification of patient identification for the specimen was done by the nurse. Estimated blood loss was minimal. Impression: - Erythematous duodenopathy. Biopsied. - Gastritis. Biopsied. - Medium-sized hiatal hernia. Biopsied mid esophagus for EE. Recommendation: - Discharge patient to home (ambulatory). - Resume previous diet. - Continue present medications. - Await pathology results. - Follow up with Tricia Marrufo NP via televisit for discussion of pathology results and determination of timing of future endoscopies Procedure Code(s): --- Professional --- 79911, Esophagogastroduoden oscopy, flexible, transoral; with biopsy, single or multiple Diagnosis Code(s): --- Professional --- R13.10, Dysphagia, unspecified K44.9, Diaphragmatic hernia without obstruction or gangrene K29.70, Gastritis, unspecified, without bleeding K31.89, Other diseases of stomach and duodenum CPT copyright 2020 [employer]. All rights reserved. The codes documented in this report are preliminary and upon bisque cleaner review may be revised to meet current compliance requirements. Attending Participation: I personally performed the entire procedure. Scope In: 11:31:03 AM Scope Out: 11:39:15 AM MD Bina Christy MD 10/16/2023 11:42:53 AM This report has been signed electronically by Bina Overton MD Number of Addenda: 0 Note Initiated On: 10/16/2023 10:28 AM Estimated Blood Loss: Estimated blood loss was minimal. Normal [facility] Absolute lymphocyte countOrd ered By: Cheikh Pinto on 08-08-2023 Lymphocytes Auto (Unsp spec) [#/Vol] 1.39 10*3/uL 0.83-4.51 [facility] Automated lymphocyte count a s percentage of total leukocytesOrdered By: Cheikh Pinto on 08-08-2023 Lymphocytes/100 WBC Auto (Unsp spec) 30.0 % 19-41 [facility] Basophil percentageOrdered B y: Cheikh Pinto on 08-08-2023 Basophils/100 WBC (Bld) 0.6 % 0-1 [facility] Bilirubin [Mass/Vol] 0.50 mg/dL 0.20-1.00 [facility] Comment on above: For patients on eltr ombopag therapy, use of Dimension [place] TBIL is not recommended. Chloride [Moles/Vol] 104 mmol/L 98-107 [facility] Cholesterol [Mass/Vol] 321 mg/dL <200 [facility] Comment on above: <200 mg/dL Desirable 200-240 mg/dL Borderline >240 mg/dL High Risk Eosinophils/100 WBC (Bld) 1.9 % 0-5 [facility] Glucose [Mass/Vol] 98 mg/dL 74-106 [facility] Hemoglobin (Bld) [Mass/Vol] 12.8 g/dL 12.0-15.0 [facility] Monocytes/100 WBC (Bld) 7.8 % 0-10 [facility] Neutrophils (Bld) [#/Vol] 2.8 10*3/uL 2.0-7.7 [facility] Neutrophils/100 WBC (Bld) 59.5 % 47-70 [facility] Potassium [Moles/Vol] 4.2 mmol/L 3.5-5.1 [facility] Protein [Mass/Vol] 7.6 g/dL 6.4-8.2 [facility] Sodium [Moles/Vol] 139 mmol/L 136-145 [facility] Triglyceride [Mass/Vol] 73 mg/dL <199 [facility] Comment on above: The drugs N-Acetylcy steine and Metamizole may falsely depress this assay.Serum Triglycerides Reference Interval Normal <150 mg/dL Borderline high 150 - 199 mg/dL High 200 - 499 mg/dL Very High > or = 500 mg/dL WBC (Bld) [#/Vol] 4.6 10*3/uL 4.4-11.0 [facility] Determination of erythrocyte mean corpuscular volume (MCV)Ordered By: Cheikh Pinto on 08-08-2023 MCV (RBC) [Entitic vol] 89.2 fL 81-99 [facility] Erythrocyte distribution wid th ratioOrdered By: Cheikh Pinto on 08-08-2023 Erythrocyte distribution width (RBC) [Ratio] 12.9 % 11.6-14.6 [facility] Erythrocyte distribution wid th standard deviationOrdered By: Cheikh Pinto on 08-08-2023 Erythrocyte distribution width (RBC) [Entitic vol] 42.1 fL 35.1-43.9 [facility] Hematocrit Auto (Bld) [Volum e fraction]Ordered By: Cheikh Pinto on 08-08-2023 Hematocrit (Bld) [Volume fraction] 39.8 % 37-47 [facility] Immature granulocytes/100 WB C Auto (Bld)Ordered By: Cheikh Pinto on 08-08-2023 Immature granulocytes/100 WBC (Bld) 0.200 % 0.0-0.9 [facility] Comment on above: IG% - Immature Granu locytes (promyelocytes, myelocytes and metamyelocytes) > 1% indicates that a LEFT SHIFT is Present. Laboratory - Chemistry and C hemistry - challengeOrdered By: Cheikh Pinto on 08-08-2023 Albumin/Globulin [Mass ratio] 1.0 {ratio} 0.9-2.4 [facility] ALP [Catalytic activity/Vol] 76 U/L 45-117 [facility] ALT [Catalytic activity/Vol] 24 U/L 13-56 [facility] Cholesterol in HDL [Mass/Vol] 78 mg/dL >40 [facility] Comment on above: The drugs N-Acetylcy steine and Metamizole may falsely depress this assay. Reference Range HDL <40 mg/dL Low HDL Cholesterol HDL >or= 60 mg/dL High HDL Cholesterol Cholesterol in LDL [Mass/Vol] 228 mg/dL 0-130 [facility] CO2 [Moles/Vol] 28.0 mmol/L 21.0-32.0 [facility] Globulin (S) [Mass/Vol] 3.8 g/dL 2.2-4.2 [facility] Magnesium [Mass/Vol] 2.0 mg/dL 1.6-2.6 [facility] Urea nitrogen/Creatinine [Mass ratio] 14.2 mg/mg 10-20 [facility] Laboratory - Hematology and Cell countsOrdered By: Cheikh Pinto on 08-08-2023 MCH (RBC) [Entitic mass] 28.7 pg 27.0-32.0 [facility] MCHC (RBC) [Mass/Vol] 32.2 g/dL 32-36 [facility] Nucleated RBC/100 WBC (Bld) [Ratio] 0 % 0-5 [facility] Platelet mean volume (Bld) [Entitic vol] 10.0 fL 6.2-12.0 [facility] Platelets (Bld) [#/Vol] 243 10*3/uL 150-450 [facility] No Panel InformationOrdered By: Cheikh Pinto on 08-08-2023 Estimated GFR (MDRD) Amer 71 mL/min >60 [facility] Comment on above: GFR Calc Estimated GFR (MDRD) Non-Af Amer 59 mL/min >60 [facility] Comment on above: Non- GFR Calc Free Triiodothyronine (T3) pg/dL 2.5 pg/mL 2.18-3.98 [facility] Vitamin D 25-Hydroxy 42.0 ng/mL [facility] Comment on above: Vitamin D 25(OH) Sta tus Range Deficiency <20 ng/mL (50nmol/L) Insufficiency 20 - 30 ng/mL (50 - 75 nmol/L) Sufficiency 30 - 100 ng/mL (75 - 250 nmol/L) Toxicity >100 ng/mL (>250 nmol/L) VLDL Cholesterol 15 mg/dL 5-40 [facility] RBC Auto (Bld) [#/Vol]Ordere d By: Cheikh Pinto on 08-08-2023 RBC (Bld) [#/Vol] 4.46 10*6/uL 4.2-5.4 [facility] Serum or plasma calcium veena urement (mass/volume)Ordered By: Cheikh Pinto on 08-08-2023 Calcium [Mass/Vol] 9.5 mg/dL 8.5-10.1 [facility] Serum or plasma creatinine m easurement (mass/volume)Ordered By: Cheikh Pinto on 08-08-2023 Creatinine [Mass/Vol] 0.98 mg/dL 0.55-1.02 [facility] Comment on above: The validity of the calculated GFR & GFRAA in patients over 70 years has not been determined. Clinical correlation is essential. Serum or plasma thyroid stim ulating hormone (TSH) measurement (units/volume)Ordered By: Cheikh Pinto on 08-08-2023 TSH Qn 0.90 uIU/mL 0.358-3.74 [facility] Serum or plasma urea nitroge n measurement (mass/volume)Ordered By: Cheikh Pinto on 08-08-2023 Urea nitrogen [Mass/Vol] 14 mg/dL 7-18 [facility] Thin prep Papanicolaou smear with manual screeningOrdered By: Cheikh Pinto on 08-08-2023 Thin prep Papanicolaou smear with manual screening 3.8 g/dL 3.2-5.0 [facility] Thin prep Papanicolaou smear with manual screening 19 U/L 15-37 [facility] Thin prep Papanicolaou smear with manual screening 7 5-15 [facility] Thin prep Papanicolaou smear with manual screening 1.36 ng/dL 0.76-1.46 [facility] Absolute lymphocyte countOrd ered By: Jaswant Aly on 12-18-2022 Lymphocytes Auto (Unsp spec) [#/Vol] 1.20 10*3/uL 0.83-4.51 [facility] Basophil percentageOrdered B y: Jaswant Aly on 12-18-2022 Basophils/100 WBC (Bld) 0.5 % 0-1 [facility] Bilirubin [Mass/Vol] 0.50 mg/dL 0.20-1.00 [facility] Comment on above: For patients on eltr ombopag therapy, use of Dimension [place] TBIL is not recommended. Chloride [Moles/Vol] 102 mmol/L 98-107 [facility] Eosinophils/100 WBC (Bld) 0.8 % 0-5 [facility] Glucose [Mass/Vol] 106 mg/dL 74-106 [facility] Comment on above: Fasting Glucose resu lt from 100 to 125 mg/dL suggests IMPAIRED HOMEOSTASIS per A.D.A. criteria. Neutrophils (Bld) [#/Vol] 6.8 10*3/uL 2.0-7.7 [facility] Neutrophils/100 WBC (Bld) 78.5 % 47-70 [facility] Potassium [Moles/Vol] 3.6 mmol/L 3.5-5.1 [facility] Protein [Mass/Vol] 9.2 g/dL 6.4-8.2 [facility] Sodium [Moles/Vol] 137 mmol/L 136-145 [facility] WBC (Bld) [#/Vol] 8.7 10*3/uL 4.4-11.0 [facility] Blood erythrocytes count (nu mber/volume)Ordered By: Jaswant Aly on 12-18-2022 RBC (Bld) [#/Vol] 5.27 10*6/uL 4.2-5.4 [facility] Blood hemoglobin measurement (mass/volume)Ordered By: Jaswant Aly on 12-18-2022 Hemoglobin (Bld) [Mass/Vol] 15.1 g/dL 12.0-15.0 [facility] Blood lymphocytes/100 leukoc ytesOrdered By: Jaswant Aly on 12-18-2022 Lymphocytes/100 WBC (Bld) 13.8 % 19-41 [facility] Blood monocytes/100 leukocyt esOrdered By: Jaswant Aly on 12-18-2022 Monocytes/100 WBC (Bld) 5.9 % 0-10 [facility] Blood platelet mean volumeOr dered By: Jaswant Aly on 12-18-2022 Platelet mean volume (Bld) [Entitic vol] 9.6 fL 6.2-12.0 [facility] Determination of erythrocyte mean corpuscular volume (MCV)Ordered By: Jaswant Aly on 12-18-2022 MCV (RBC) [Entitic vol] 88.0 fL 81-99 [facility] Hematocrit Auto (Bld) [Volum e fraction]Ordered By: Jaswant Aly on 12-18-2022 Hematocrit (Bld) [Volume fraction] 46.4 % 37-47 [facility] Laboratory - Chemistry and C hemistry - challengeOrdered By: Jaswant Aly on 12-18-2022 ALP [Catalytic activity/Vol] 102 U/L 45-117 [facility] ALT [Catalytic activity/Vol] 23 U/L 13-56 [facility] CO2 [Moles/Vol] 25.0 mmol/L 21.0-32.0 [facility] Globulin (S) [Mass/Vol] 4.6 g/dL 2.2-4.2 [facility] Lipase [Catalytic activity/Vol] 228 U/L 13-75 [facility] Comment on above: Please note:LIPASE r evised reference range effective 22. New Lipase methodology. Expected to produce lower values than the previous assay method. NEW Reference Range: 13 - 75 U/L Urea nitrogen/Creatinine [Mass ratio] 16.0 mg/mg 10-20 [facility] Laboratory - Hematology and Cell countsOrdered By: Jaswant Aly on 12-18-2022 Erythrocyte distribution width (RBC) [Entitic vol] 40.1 fL 35.1-43.9 [facility] Erythrocyte distribution width (RBC) [Ratio] 12.5 % 11.6-14.6 [facility] Immature granulocytes/100 WBC (Bld) 0.500 % 0.0-0.9 [facility] Comment on above: IG% - Immature Granu locytes (promyelocytes, myelocytes and metamyelocytes) > 1% indicates that a LEFT SHIFT is Present. MCH (RBC) [Entitic mass] 28.7 pg 27.0-32.0 [facility] Nucleated RBC/100 WBC (Bld) [Ratio] 0 % 0-5 [facility] MCHC Auto (RBC) [Mass/Vol]Or dered By: Jaswant Aly on 12-18-2022 MCHC (RBC) [Mass/Vol] 32.5 g/dL 32-36 [facility] No Panel InformationOrdered By: Jaswant Aly on 12-18-2022 Estimated Creatinine Clearance Calc 35.87 ml/min [facility] Estimated GFR (MDRD) Amer 57 mL/min >60 [facility] Comment on above: GFR Calc Estimated GFR (MDRD) Non-Af Amer 47 mL/min >60 [facility] Comment on above: Non- GFR Calc Platelets bldOrdered By: Armaan Aly on 12-18-2022 Platelets (Bld) [#/Vol] 299 10*3/uL 150-450 [facility] Serum or plasma albumin veena urement (mass/volume)Ordered By: Jaswant Aly on 12-18-2022 Albumin [Mass/Vol] 4.6 g/dL 3.2-5.0 [facility] Serum or plasma albumin/glob ulin mass ratioOrdered By: Jaswant Aly on 12-18-2022 Albumin/Globulin [Mass ratio] 1.0 {ratio} 0.9-2.4 [facility] Serum or plasma calcium veena urement (mass/volume)Ordered By: Jaswant Aly on 12-18-2022 Calcium [Mass/Vol] 10.4 mg/dL 8.5-10.1 [facility] Serum or plasma creatinine m easurement (mass/volume)Ordered By: Jaswant Aly on 12-18-2022 Creatinine [Mass/Vol] 1.19 mg/dL 0.55-1.02 [facility] Comment on above: The validity of the calculated GFR & GFRAA in patients over 70 years has not been determined. Clinical correlation is essential. Serum or plasma urea nitroge n measurement (mass/volume)Ordered By: Jaswant Aly on 12-18-2022 Urea nitrogen [Mass/Vol] 19 mg/dL 7-18 [facility] Thin prep Papanicolaou smear with manual screeningOrdered By: Jaswant Aly on 12-18-2022 Thin prep Papanicolaou smear with manual screening 15 U/L 15-37 [facility] Thin prep Papanicolaou smear with manual screening 10 5-15 [facility] Absolute lymphocyte countOrd ered By: Cheikh Pinto on 11-14-2022 Lymphocytes Auto (Unsp spec) [#/Vol] 1.60 10*3/uL 0.83-4.51 [facility] Basophil percentageOrdered B y: Cheikh Pinto on 11-14-2022 Basophils/100 WBC (Bld) 0.5 % 0-1 [facility] Bilirubin [Mass/Vol] 0.30 mg/dL 0.20-1.00 [facility] Comment on above: For patients on eltr ombopag therapy, use of Dimension [place] TBIL is not recommended. Chloride [Moles/Vol] 105 mmol/L 98-107 [facility] Cholesterol [Mass/Vol] 293 mg/dL <200 [facility] Comment on above: <200 mg/dL Desirable 200-240 mg/dL Borderline >240 mg/dL High Risk Eosinophils/100 WBC (Bld) 1.6 % 0-5 [facility] Glucose [Mass/Vol] 99 mg/dL 74-106 [facility] Neutrophils (Bld) [#/Vol] 3.6 10*3/uL 2.0-7.7 [facility] Neutrophils/100 WBC (Bld) 61.9 % 47-70 [facility] Potassium [Moles/Vol] 4.8 mmol/L 3.5-5.1 [facility] Protein [Mass/Vol] 7.7 g/dL 6.4-8.2 [facility] Sodium [Moles/Vol] 137 mmol/L 136-145 [facility] Triglyceride [Mass/Vol] 135 mg/dL <199 [facility] Comment on above: The drugs N-Acetylcy steine and Metamizole may falsely depress this assay.Serum Triglycerides Reference Interval Normal <150 mg/dL Borderline high 150 - 199 mg/dL High 200 - 499 mg/dL Very High > or = 500 mg/dL WBC (Bld) [#/Vol] 5.8 10*3/uL 4.4-11.0 [facility] Blood erythrocytes count (nu mber/volume)Ordered By: Cheikh Pinto on 11-14-2022 RBC (Bld) [#/Vol] 4.74 10*6/uL 4.2-5.4 [facility] Blood hemoglobin measurement (mass/volume)Ordered By: Cheikh Pinto on 11-14-2022 Hemoglobin (Bld) [Mass/Vol] 13.7 g/dL 12.0-15.0 [facility] Blood lymphocytes/100 leukoc ytesOrdered By: Cheikh Pinto on 11-14-2022 Lymphocytes/100 WBC (Bld) 27.7 % 19-41 [facility] Blood monocytes/100 leukocyt esOrdered By: Cheikh Pinto on 11-14-2022 Monocytes/100 WBC (Bld) 8.0 % 0-10 [facility] Blood platelet mean volumeOr dered By: Cheikh Pinto on 11-14-2022 Platelet mean volume (Bld) [Entitic vol] 10.1 fL 6.2-12.0 [facility] Determination of erythrocyte mean corpuscular volume (MCV)Ordered By: Cheikh Pinto on 11-14-2022 MCV (RBC) [Entitic vol] 90.1 fL 81-99 [facility] Hematocrit Auto (Bld) [Volum e fraction]Ordered By: Cheikh Pinto on 11-14-2022 Hematocrit (Bld) [Volume fraction] 42.7 % 37-47 [facility] Laboratory - Chemistry and C hemistry - challengeOrdered By: Cheikh Pinto on 11-14-2022 ALP [Catalytic activity/Vol] 82 U/L 45-117 [facility] ALT [Catalytic activity/Vol] 18 U/L 13-56 [facility] CO2 [Moles/Vol] 27.0 mmol/L 21.0-32.0 [facility] Cobalamin (Vitamin B12) [Mass/Vol] 354 pg/mL 211-911 [facility] Free T4 [Mass/Vol] 1.39 ng/dL 0.76-1.46 [facility] Globulin (S) [Mass/Vol] 4.0 g/dL 2.2-4.2 [facility] Lipase [Catalytic activity/Vol] 52 U/L 13-75 [facility] Comment on above: Please note:LIPASE r evised reference range effective 22. New Lipase methodology. Expected to produce lower values than the previous assay method. NEW Reference Range: 13 - 75 U/L Urea nitrogen/Creatinine [Mass ratio] 14.2 mg/mg 10-20 [facility] Laboratory - Hematology and Cell countsOrdered By: Cheikh Pinto on 11-14-2022 Erythrocyte distribution width (RBC) [Entitic vol] 41.5 fL 35.1-43.9 [facility] Erythrocyte distribution width (RBC) [Ratio] 12.5 % 11.6-14.6 [facility] Immature granulocytes/100 WBC (Bld) 0.300 % 0.0-0.9 [facility] Comment on above: IG% - Immature Granu locytes (promyelocytes, myelocytes and metamyelocytes) > 1% indicates that a LEFT SHIFT is Present. MCH (RBC) [Entitic mass] 28.9 pg 27.0-32.0 [facility] Nucleated RBC/100 WBC (Bld) [Ratio] 0 % 0-5 [facility] MCHC Auto (RBC) [Mass/Vol]Or dered By: Cheikh Pinto on 11-14-2022 MCHC (RBC) [Mass/Vol] 32.1 g/dL 32-36 [facility] No Panel InformationOrdered By: Cheikh Pinto on 11-14-2022 Estimated GFR (MDRD) Amer 66 mL/min >60 [facility] Comment on above: GFR Calc Estimated GFR (MDRD) Non-Af Amer 54 mL/min >60 [facility] Comment on above: Non- GFR Calc Free Triiodothyronine (T3) pg/dL 2.4 pg/mL 2.18-3.98 [facility] Thyroid Stimulating Hormone (TSH) 1.04 uIU/mL 0.358-3.74 [facility] Vitamin D 25-Hydroxy 40.7 ng/mL [facility] Comment on above: Vitamin D 25(OH) Sta tus Range Deficiency <20 ng/mL (50nmol/L) Insufficiency 20 - 30 ng/mL (50 - 75 nmol/L) Sufficiency 30 - 100 ng/mL (75 - 250 nmol/L) Toxicity >100 ng/mL (>250 nmol/L) Platelets bldOrdered By: Jenny Pinto on 11-14-2022 Platelets (Bld) [#/Vol] 263 10*3/uL 150-450 [facility] Serum or plasma albumin veena urement (mass/volume)Ordered By: Cheikh Pinto on 11-14-2022 Albumin [Mass/Vol] 3.7 g/dL 3.2-5.0 [facility] Serum or plasma albumin/glob ulin mass ratioOrdered By: Cheikh Pinto on 11-14-2022 Albumin/Globulin [Mass ratio] 0.9 {ratio} 0.9-2.4 [facility] Serum or plasma calcium veena urement (mass/volume)Ordered By: Cheikh Pinto on 11-14-2022 Calcium [Mass/Vol] 9.3 mg/dL 8.5-10.1 [facility] Serum or plasma cholesterol in HDL measurement (mass/volume)Ordered By: Cheikh Pinto on 11-14-2022 Cholesterol in HDL [Mass/Vol] 60 mg/dL >40 [facility] Comment on above: The drugs N-Acetylcy steine and Metamizole may falsely depress this assay. Reference Range HDL <40 mg/dL Low HDL Cholesterol HDL >or= 60 mg/dL High HDL Cholesterol Serum or plasma cholesterol in VLDL measurement (mass/volume)Ordered By: Cheikh Pinto on 11-14-2022 Cholesterol in VLDL [Mass/Vol] 27 mg/dL 5-40 [facility] Serum or plasma creatinine m easurement (mass/volume)Ordered By: Cheikh Pinto on 11-14-2022 Creatinine [Mass/Vol] 1.06 mg/dL 0.55-1.02 [facility] Comment on above: The validity of the calculated GFR & GFRAA in patients over 70 years has not been determined. Clinical correlation is essential. Serum or plasma low density lipoprotein (LDL) cholesterol measurement (mass/volume)Ordered By: Cheikh Pinto on 11-14-2022 Cholesterol in LDL [Mass/Vol] 206 mg/dL 0-130 [facility] Serum or plasma urea nitroge n measurement (mass/volume)Ordered By: Cheikh Pinto on 11-14-2022 Urea nitrogen [Mass/Vol] 15 mg/dL 7-18 [facility] Thin prep Papanicolaou smear with manual screeningOrdered By: Cheikh Pinto on 11-14-2022 Thin prep Papanicolaou smear with manual screening 16 U/L 15-37 [facility] Thin prep Papanicolaou smear with manual screening 5 5-15 [facility] Absolute lymphocyte countOrd ered By: Ferny Jett on 11-10-2022 Lymphocytes Auto (Unsp spec) [#/Vol] 1.05 10*3/uL 0.83-4.51 [facility] Basophil percentageOrdered B y: Ferny Jett on 11-10-2022 Basophils/100 WBC (Bld) 0.4 % 0-1 [facility] Bilirubin [Mass/Vol] 0.40 mg/dL 0.20-1.00 [facility] Comment on above: For patients on eltr ombopag therapy, use of Dimension [place] TBIL is not recommended. Chloride [Moles/Vol] 101 mmol/L 98-107 [facility] Eosinophils/100 WBC (Bld) 0.4 % 0-5 [facility] Glucose [Mass/Vol] 156 mg/dL 74-106 [facility] Comment on above: Fasting Glucose resu lt greater than or equal to 126 mg/dL suggests DIABETES MELLITUS per A.D.A. criteria. Neutrophils (Bld) [#/Vol] 7.9 10*3/uL 2.0-7.7 [facility] Neutrophils/100 WBC (Bld) 81.2 % 47-70 [facility] Potassium [Moles/Vol] 4.0 mmol/L 3.5-5.1 [facility] Comment on above: Slight Hemolysis, Re sult may be falsely increased. Protein [Mass/Vol] 9.2 g/dL 6.4-8.2 [facility] Sodium [Moles/Vol] 139 mmol/L 136-145 [facility] WBC (Bld) [#/Vol] 9.7 10*3/uL 4.4-11.0 [facility] Blood erythrocytes count (nu mber/volume)Ordered By: Ferny Jett on 11-10-2022 RBC (Bld) [#/Vol] 5.43 10*6/uL 4.2-5.4 [facility] Blood hemoglobin measurement (mass/volume)Ordered By: Ferny Jett on 11-10-2022 Hemoglobin (Bld) [Mass/Vol] 15.7 g/dL 12.0-15.0 [facility] Blood lymphocytes/100 leukoc ytesOrdered By: Ferny Jett on 11-10-2022 Lymphocytes/100 WBC (Bld) 10.8 % 19-41 [facility] Blood monocytes/100 leukocyt esOrdered By: Ferny Jett on 11-10-2022 Monocytes/100 WBC (Bld) 6.8 % 0-10 [facility] Blood platelet mean volumeOr dered By: Ferny Jett on 11-10-2022 Platelet mean volume (Bld) [Entitic vol] 9.9 fL 6.2-12.0 [facility] Determination of erythrocyte mean corpuscular volume (MCV)Ordered By: Ferny Jett on 11-10-2022 MCV (RBC) [Entitic vol] 87.3 fL 81-99 [facility] Hematocrit Auto (Bld) [Volum e fraction]Ordered By: Ferny Jett on 11-10-2022 Hematocrit (Bld) [Volume fraction] 47.4 % 37-47 [facility] Laboratory - Chemistry and C hemistry - challengeOrdered By: Fernysherwin Jett on 11-10-2022 ALP [Catalytic activity/Vol] 91 U/L 45-117 [facility] ALT [Catalytic activity/Vol] 21 U/L 13-56 [facility] CO2 [Moles/Vol] 26.0 mmol/L 21.0-32.0 [facility] Globulin (S) [Mass/Vol] 4.6 g/dL 2.2-4.2 [facility] Urea nitrogen/Creatinine [Mass ratio] 9.8 mg/mg 10-20 [facility] Laboratory - Hematology and Cell countsOrdered By: Ferny Jett on 11-10-2022 Erythrocyte distribution width (RBC) [Entitic vol] 40.6 fL 35.1-43.9 [facility] Erythrocyte distribution width (RBC) [Ratio] 12.9 % 11.6-14.6 [facility] Immature granulocytes/100 WBC (Bld) 0.400 % 0.0-0.9 [facility] Comment on above: IG% - Immature Granu locytes (promyelocytes, myelocytes and metamyelocytes) > 1% indicates that a LEFT SHIFT is Present. MCH (RBC) [Entitic mass] 28.9 pg 27.0-32.0 [facility] Nucleated RBC/100 WBC (Bld) [Ratio] 0 % 0-5 [facility] MCHC Auto (RBC) [Mass/Vol]Or dered By: Ferny Jett on 11-10-2022 MCHC (RBC) [Mass/Vol] 33.1 g/dL 32-36 [facility] No Panel InformationOrdered By: Ferny Jett on 11-10-2022 Estimated Creatinine Clearance Calc 24.67 ml/min [facility] Estimated GFR (MDRD) Amer 37 mL/min >60 [facility] Comment on above: GFR Calc Estimated GFR (MDRD) Non-Af Amer 31 mL/min >60 [facility] Comment on above: Non- GFR Calc Platelets bldOrdered By: Tej Jett on 11-10-2022 Platelets (Bld) [#/Vol] 330 10*3/uL 150-450 [facility] Serum or plasma albumin veena urement (mass/volume)Ordered By: Ferny Jett on 11-10-2022 Albumin [Mass/Vol] 4.6 g/dL 3.2-5.0 [facility] Serum or plasma albumin/glob ulin mass ratioOrdered By: Ferny Jett on 11-10-2022 Albumin/Globulin [Mass ratio] 1.0 {ratio} 0.9-2.4 [facility] Serum or plasma calcium veena urement (mass/volume)Ordered By: Ferny Jett on 11-10-2022 Calcium [Mass/Vol] 10.5 mg/dL 8.5-10.1 [facility] Serum or plasma creatinine m easurement (mass/volume)Ordered By: Ferny Jett on 11-10-2022 Creatinine [Mass/Vol] 1.73 mg/dL 0.55-1.02 [facility] Comment on above: The validity of the calculated GFR & GFRAA in patients over 70 years has not been determined. Clinical correlation is essential. Serum or plasma urea nitroge n measurement (mass/volume)Ordered By: Ferny Jett on 11-10-2022 Urea nitrogen [Mass/Vol] 17 mg/dL -18 [facility] Thin prep Papanicolaou smear with manual screeningOrdered By: Ferny Jett on 11-10-2022 Thin prep Papanicolaou smear with manual screening 20 U/L [facility] Comment on above: Slight Hemolysis, Re sult may be falsely increased. Thin prep Papanicolaou smear with manual screening 12 5-15 [facility] Absolute lymphocyte countOrd ered By: Jany Talamantes on 10-31-2022 Lymphocytes Auto (Unsp spec) [#/Vol] 0.73 10*3/uL 0.83-4.51 [facility] Basophil percentageOrdered B y: Jany Talamantes on 10-31-2022 Basophil percentage 5-10 SEEN /hpf 0-5 [facility] Basophils/100 WBC (Bld) 0.4 % 0-1 [facility] Bilirubin [Mass/Vol] 0.60 mg/dL 0.20-1.00 [facility] Comment on above: For patients on eltr ombopag therapy, use of Dimension [place] TBIL is not recommended. Chloride [Moles/Vol] 97 mmol/L 98-107 [facility] Eosinophils/100 WBC (Bld) 0.2 % 0-5 [facility] Glucose [Mass/Vol] 176 mg/dL 74-106 [facility] Comment on above: Fasting Glucose resu lt greater than or equal to 126 mg/dL suggests DIABETES MELLITUS per A.D.A. criteria. Neutrophils (Bld) [#/Vol] 7.0 10*3/uL 2.0-7.7 [facility] Neutrophils/100 WBC (Bld) 84.7 % 47-70 [facility] Potassium [Moles/Vol] 2.9 mmol/L 3.5-5.1 [facility] Protein [Mass/Vol] 8.5 g/dL 6.4-8.2 [facility] Sodium [Moles/Vol] 139 mmol/L 136-145 [facility] WBC (Bld) [#/Vol] 8.2 10*3/uL 4.4-11.0 [facility] Bilirubin Test strip Ql (U)O rdered By: Jany Talamantes on 10-31-2022 Bilirubin Ql (U) 1 mg/dL Negative [facility] Comment on above: COLOR OF URINE MAY A FFECT DIPSTICK RESULTS. Blood erythrocytes count (nu mber/volume)Ordered By: Jany Talamantes on 10-31-2022 RBC (Bld) [#/Vol] 5.31 10*6/uL 4.2-5.4 [facility] Blood hemoglobin measurement (mass/volume)Ordered By: Jany Talamantes on 10-31-2022 Hemoglobin (Bld) [Mass/Vol] 15.1 g/dL 12.0-15.0 [facility] Blood lymphocytes/100 leukoc ytesOrdered By: Jany Talamantes on 10-31-2022 Lymphocytes/100 WBC (Bld) 8.9 % 19-41 [facility] Blood monocytes/100 leukocyt esOrdered By: Jany Talamantes on 10-31-2022 Monocytes/100 WBC (Bld) 5.4 % 0-10 [facility] Blood platelet mean volumeOr dered By: Jany Talamantes on 10-31-2022 Platelet mean volume (Bld) [Entitic vol] 10.3 fL 6.2-12.0 [facility] Culture, urineOrdered By: Jhonny Jett on 10-31-2022 Bacteria identified Cx Nom (U) Positive [facility] Determination of erythrocyte mean corpuscular volume (MCV)Ordered By: Jany Talamantes on 10-31-2022 MCV (RBC) [Entitic vol] 86.6 fL 81-99 [facility] Direct bilirubinOrdered By: Jany Talamantes on 10-31-2022 Bilirubin.direct [Mass/Vol] 0.11 mg/dL 0.00-0.30 [facility] Hematocrit Auto (Bld) [Volum e fraction]Ordered By: Jany Talamantes on 10-31-2022 Hematocrit (Bld) [Volume fraction] 46.0 % 37-47 [facility] Hyaline casts LM.LPF (Urine sed) [#/Area]Ordered By: Jany Talamantes on 10-31-2022 Hyaline casts (Urine sed) [#/Area] 10 /[LPF] 0-5 [facility] Ketones Test strip Ql (U)Ord ered By: Jany Talamantes on 10-31-2022 Ketones Ql (U) 5 mg/dl Negative [facility] Laboratory - Chemistry and C hemistry - challengeOrdered By: Jany Talamantes on 10-31-2022 ALP [Catalytic activity/Vol] 77 U/L 45-117 [facility] ALT [Catalytic activity/Vol] 23 U/L 13-56 [facility] CO2 [Moles/Vol] 32.0 mmol/L 21.0-32.0 [facility] Globulin (S) [Mass/Vol] 4.3 g/dL 2.2-4.2 [facility] Urea nitrogen/Creatinine [Mass ratio] 12.8 mg/mg 10-20 [facility] Laboratory - Hematology and Cell countsOrdered By: Jany Talamantes on 10-31-2022 Erythrocyte distribution width (RBC) [Entitic vol] 40.1 fL 35.1-43.9 [facility] Erythrocyte distribution width (RBC) [Ratio] 12.8 % 11.6-14.6 [facility] Immature granulocytes/100 WBC (Bld) 0.400 % 0.0-0.9 [facility] Comment on above: IG% - Immature Granu locytes (promyelocytes, myelocytes and metamyelocytes) > 1% indicates that a LEFT SHIFT is Present. MCH (RBC) [Entitic mass] 28.4 pg 27.0-32.0 [facility] Nucleated RBC/100 WBC (Bld) [Ratio] 0 % 0-5 [facility] MCHC Auto (RBC) [Mass/Vol]Or dered By: Jany Talamantes on 10-31-2022 MCHC (RBC) [Mass/Vol] 32.8 g/dL 32-36 [facility] Mucus LM Ql (Urine sed)Order ed By: Jany Talamantes on 10-31-2022 Mucus Ql (Urine sed) 0 SEEN /hpf [facility] Nitrite Test strip Ql (U)Ord ered By: Jany Talamantes on 10-31-2022 Nitrite Ql (U) Negative Negative [facility] No Panel InformationOrdered By: Jany Talamantes on 10-31-2022 Estimated Creatinine Clearance Calc 23.85 ml/min [facility] Estimated GFR (MDRD) Amer 36 mL/min >60 [facility] Comment on above: GFR Calc Estimated GFR (MDRD) Non-Af Amer 30 mL/min >60 [facility] Comment on above: Non- GFR Calc Platelets bldOrdered By: Marita Talamantes on 10-31-2022 Platelets (Bld) [#/Vol] 254 10*3/uL 150-450 [facility] Protein Test strip Ql (U)Ord ered By: Jany Talamantes on 10-31-2022 Protein Ql (U) 100 mg/dl Negative [facility] Serum or plasma albumin veena urement (mass/volume)Ordered By: Jany Talamantes on 10-31-2022 Albumin [Mass/Vol] 4.2 g/dL 3.2-5.0 [facility] Serum or plasma calcium veena urement (mass/volume)Ordered By: Jany Talamantes on 10-31-2022 Calcium [Mass/Vol] 9.8 mg/dL 8.5-10.1 [facility] Serum or plasma creatinine m easurement (mass/volume)Ordered By: Jany Talamantes on 10-31-2022 Creatinine [Mass/Vol] 1.79 mg/dL 0.55-1.02 [facility] Comment on above: The validity of the calculated GFR & GFRAA in patients over 70 years has not been determined. Clinical correlation is essential. Serum or plasma urea nitroge n measurement (mass/volume)Ordered By: Jany Talamantes on 10-31-2022 Urea nitrogen [Mass/Vol] 23 mg/dL 7-18 [facility] Squamous epithelial cells de tection in urine sediment by light microscopyOrdered By: Jany Talamantes on 10-31-2022 Epithelial cells.squamous LM Ql (Urine sed) 0 SEEN /hpf 5-10 [facility] Thin prep Papanicolaou smear with manual screeningOrdered By: Jany Talamantes on 10-31-2022 Thin prep Papanicolaou smear with manual screening 17 U/L 15-37 [facility] Thin prep Papanicolaou smear with manual screening 10 5-15 [facility] Urine blood detectionOrdered By: Jany Talamantes on 10-31-2022 RBC Ql (U) 10 /ul Negative [facility] RBC Ql (U) 0-5 SEEN /hpf 0-5 [facility] Urine clarityOrdered By: Marita Talamantes on 10-31-2022 Clarity (U) Sl. Cloudy Clear [facility] Urine color determinationOrd ered By: Jany Talamantes on 10-31-2022 Color (U) Yellow Yellow [facility] Urine glucose detectionOrder ed By: Jany Talamantes on 10-31-2022 Glucose Ql (U) 50 mg/dl Normal [facility] Urine leukocyte esterase det ection by dipstickOrdered By: Jany Talamantes on 10-31-2022 Leukocyte esterase Test strip Ql (U) 100 /ul Negative [facility] Urine pHOrdered By: Jany Talamantes on 10-31-2022 pH (U) 5.0 [pH] 5.0 - 8.0 [facility] Urine sediment bacteria coun t by microscopy (number/high power field)Ordered By: Jany Talamantes on 10-31-2022 Bacteria LM.HPF (Urine sed) [#/Area] 1 /[HPF] None Seen [facility] Urine specific gravity measu rementOrdered By: Jany Talamantes on 10-31-2022 Specific gravity (U) [Rel density] 1.030 1.002-1.030 [facility] Urobilinogen Auto test strip Ql (U)Ordered By: Jany Talamantes on 10-31-2022 Urobilinogen Ql (U) 1 mg/dl Normal [facility] No Panel Informationon 09-11 [facility] Absolute lymphocyte countOrd ered By: Dr. Pinto on 05-16-2022 Lymphocytes Auto (Unsp spec) [#/Vol] 1.89 10*3/uL 0.83-4.51 [facility] Basophil percentageOrdered B y: Dr. Pinto on 05-16-2022 Basophils/100 WBC (Bld) 0.4 % 0-1 [facility] Bilirubin [Mass/Vol] 0.30 mg/dL 0.20-1.00 [facility] Comment on above: For patients on eltr ombopag therapy, use of Dimension [place] TBIL is not recommended. Chloride [Moles/Vol] 106 mmol/L 98-107 [facility] Eosinophils/100 WBC (Bld) 2.2 % 0-5 [facility] Glucose [Mass/Vol] 92 mg/dL 74-106 [facility] Neutrophils (Bld) [#/Vol] 3.0 10*3/uL 2.0-7.7 [facility] Neutrophils/100 WBC (Bld) 54.6 % 47-70 [facility] Potassium [Moles/Vol] 4.0 mmol/L 3.5-5.1 [facility] Protein [Mass/Vol] 7.6 g/dL 6.4-8.2 [facility] Sodium [Moles/Vol] 142 mmol/L 136-145 [facility] WBC (Bld) [#/Vol] 5.4 10*3/uL 4.4-11.0 [facility] Blood erythrocytes count (nu mber/volume)Ordered By: Dr. Pinto on 05-16-2022 RBC (Bld) [#/Vol] 4.68 10*6/uL 4.2-5.4 [facility] Blood hemoglobin measurement (mass/volume)Ordered By: Dr. Pinto on 05-16-2022 Hemoglobin (Bld) [Mass/Vol] 13.1 g/dL 12.0-15.0 [facility] Blood lymphocytes/100 leukoc ytesOrdered By: Dr. Pinto on 05-16-2022 Lymphocytes/100 WBC (Bld) 34.7 % 19-41 [facility] Blood monocytes/100 leukocyt esOrdered By: Dr. Pinto on 05-16-2022 Monocytes/100 WBC (Bld) 7.9 % 0-10 [facility] Blood platelet mean volumeOr dered By: Dr. Pinto on 05-16-2022 Platelet mean volume (Bld) [Entitic vol] 10.0 fL 6.2-12.0 [facility] Determination of erythrocyte mean corpuscular volume (MCV)Ordered By: Dr. Pinto on 05-16-2022 MCV (RBC) [Entitic vol] 89.7 fL 81-99 [facility] Hematocrit Auto (Bld) [Volum e fraction]Ordered By: Dr. Pinto on 05-16-2022 Hematocrit (Bld) [Volume fraction] 42.0 % 37-47 [facility] Laboratory - Chemistry and C hemistry - challengeOrdered By: Dr. Pinto on 05-16-2022 ALP [Catalytic activity/Vol] 88 U/L 45-117 [facility] ALT [Catalytic activity/Vol] 18 U/L 13-56 [facility] CO2 [Moles/Vol] 29.0 mmol/L 21.0-32.0 [facility] Free T4 [Mass/Vol] 1.51 ng/dL 0.76-1.46 [facility] Globulin (S) [Mass/Vol] 3.9 g/dL 2.2-4.2 [facility] Urea nitrogen/Creatinine [Mass ratio] 12.3 mg/mg 10-20 [facility] Laboratory - Hematology and Cell countsOrdered By: Dr. Pinto on 05-16-2022 Erythrocyte distribution width (RBC) [Entitic vol] 42.2 fL 35.1-43.9 [facility] Erythrocyte distribution width (RBC) [Ratio] 12.8 % 11.6-14.6 [facility] Immature granulocytes/100 WBC (Bld) 0.200 % 0.0-0.9 [facility] Comment on above: IG% - Immature Granu locytes (promyelocytes, myelocytes and metamyelocytes) > 1% indicates that a LEFT SHIFT is Present. MCH (RBC) [Entitic mass] 28.0 pg 27.0-32.0 [facility] Nucleated RBC/100 WBC (Bld) [Ratio] 0 % 0-5 [facility] MCHC Auto (RBC) [Mass/Vol]Or dered By: Dr. Pinto on 05-16-2022 MCHC (RBC) [Mass/Vol] 31.2 g/dL 32-36 [facility] No Panel InformationOrdered By: Dr. Pinto on 05-16-2022 Estimated GFR (MDRD) Amer 72 mL/min >60 [facility] Comment on above: GFR Calc Estimated GFR (MDRD) Non-Af Amer 60 mL/min >60 [facility] Comment on above: Non- GFR Calc Free Triiodothyronine (T3) pg/dL 2.5 pg/mL 2.18-3.98 [facility] Thyroid Stimulating Hormone (TSH) 0.96 uIU/mL 0.358-3.74 [facility] Vitamin D 25-Hydroxy 38.4 ng/mL [facility] Comment on above: Vitamin D 25(OH) Sta tus Range Deficiency <20 ng/mL (50nmol/L) Insufficiency 20 - 30 ng/mL (50 - 75 nmol/L) Sufficiency 30 - 100 ng/mL (75 - 250 nmol/L) Toxicity >100 ng/mL (>250 nmol/L) Platelets bldOrdered By: Dr. Pinto on 05-16-2022 Platelets (Bld) [#/Vol] 242 10*3/uL 150-450 [facility] Serum or plasma albumin veena urement (mass/volume)Ordered By: Dr. Pinto on 05-16-2022 Albumin [Mass/Vol] 3.7 g/dL 3.2-5.0 [facility] Serum or plasma albumin/glob ulin mass ratioOrdered By: Dr. Pinto on 05-16-2022 Albumin/Globulin [Mass ratio] 0.9 {ratio} 0.9-2.4 [facility] Serum or plasma calcium veena urement (mass/volume)Ordered By: Dr. Pinto on 05-16-2022 Calcium [Mass/Vol] 9.3 mg/dL 8.5-10.1 [facility] Serum or plasma creatinine m easurement (mass/volume)Ordered By: Dr. Pinto on 05-16-2022 Creatinine [Mass/Vol] 0.98 mg/dL 0.55-1.02 [facility] Comment on above: The validity of the calculated GFR & GFRAA in patients over 70 years has not been determined. Clinical correlation is essential. Serum or plasma urea nitroge n measurement (mass/volume)Ordered By: Dr. Pinto on 05-16-2022 Urea nitrogen [Mass/Vol] 12 mg/dL 7-18 [facility] Thin prep Papanicolaou smear with manual screeningOrdered By: Dr. Pinto on 05-16-2022 Thin prep Papanicolaou smear with manual screening 14 U/L 15-37 [facility] Thin prep Papanicolaou smear with manual screening 7 5-15 [facility] Laboratory - Chemistry and C hemistry - challengeon 12-07-2021 Free T4 [Mass/Vol] 1.37 ng/dL 0.76-1.46 [facility] Work Phone: No Panel Informationon 12-07 Free Triiodothyronine (T3) pg/dL 2.8 pg/mL 2.18-3.98 [facility] Work Phone: Thyroid Stimulating Hormone (TSH) 0.53 uIU/mL 0.358-3.74 [facility] Work Phone: Final Surgical Pathology Rep dena 06-27-2018 Final Surgical Pathology Report . Pathology Reports Accession: Collected Date/Time: Received Date/Time: Pathologist: [id number] 06/19/2018 09:42 EST 06/20/2018 09:42 DO OMI KOHLER Final Surgical Pathology Report DIAGNOSIS: A) GASTRIC FUNDUS -- PATCHY MILD SUPERFICIAL CHRONIC INFLAMMATION AND EDEMA. Negative for H. Pylori. B) DUODENAL BULB -- PATCHY MILD ACUTE AND CHRONIC INFLAMMATION OF THE LAMINA PROPRIA. Granulomas not identified. C) DUODENUM -- ACTIVE DUODENITIS. Negative for granulomas. D) G-E JUNCTION -- ESOPHAGEAL ULCER WITH ACUTE INFLAMMATION AND INFLAMMATORY ATYPIA. Immunostains for Pankeratin utilized. GMS fungal stains are negative. E) LOWER ESOPHAGUS -- ULCERATION WITH ACUTE INFLAMMATION, NECROSIS AND INFLAMMATORY ATYPIA. GMS fungal stains are negative. F) CONSISTENT WITH HYPERPLASTIC POLYP, SIGMOID COLON. COMMENT: [facility] - A# [id number] CLINICAL INFORMATION: NAUSEA, VOMITING, WEIGHT LOSS SPECIMEN: A STOM, BX - GASTRIC FUNDUS BIOPSY B DUODENAL BULB BIOPSY C DUODENUM BIOPSIES D G-E JUNCTION BIOPSY E LOWER ESOPHAGUS BIOPSY F SIGMOID POLYP GROSS DESCRIPTION: A. Received in formalin labeled with the patient's name and a are 2 suarez glistening soft tissues averaging 0.3 cm. TS -1 B. Received in formalin labeled with the patient's name and be are several suarez glistening soft tissues ranging from 0.2-0.3 cm. TS -1 C. Received in formalin labeled C are 2 suarez glistening soft tissues averaging 0.3 cm. TS -1 D. Received in formalin labeled D are several suarez glistening soft tissues ranging from 0.2-0.3 cm. TS -1 E. Received in formalin labeled E are several pale suarez semitranslucent tissue fragments ranging from minute to 0.3 cm. TS -1 Pathology Reports Accession: Collected Date/Time: Received Date/Time: Pathologist: [id number] 06/19/2018 09:42 EST 06/20/2018 09:42 DO OMI KOHLER GROSS DESCRIPTION: F. Received in formalin labeled F is a 0.3 cm suarez glistening soft tissue. TS -1 Dictated by Lynn ROLDAN ([facility]) MICROSCOPIC DESCRIPTION: A-F) Slides reviewed. Electronically Signed by Pathology Report verified by [facility] Electronically signed by OMI GUTIERREZ DO Sign out Date: 06/27/2018 14:05 Performing Lab: [facility], [address] [place] [id number] [place] [address] ([place]) Comment on above: Performed By: #### S PFR #### [address] [address] VitD, 1,25 Dihydroxyon 06-24 1,25 Dihydroxy VitD2 4.2 pg/mL Normal [facility] 1,25 Dihydroxy VitD3 35.6 pg/mL Normal [facility] Vit D,1,25 DiOH for research. Normal 15.0-60.0 [facility] Vital Signs Date Time Vital Sign Value Performing Clinician Facility 02-03-2025 09:05-0400 Body height 160.[address] Cheikh Pinto MD Work Phone: [facility] 02-03-2025 09:05-0400 Body mass index (BMI) [Ratio] 26.9 kg/m2 Dr. Cheikh Pinto MD Work Phone: [facility] 02-03-2025 09:05-0400 Body temperature 98.6 [degF] Dr. Cheikh Pinto MD Work Phone: [facility] 02-03-2025 09:05-0400 Body weight 69.[address] Cheikh Pinto MD Work Phone: [facility] 02-03-2025 09:05-0400 Diastolic blood pressure 88 mm[Hg] Dr. Cheikh Pinto MD Work Phone: [facility] 02-03-2025 09:05-0400 Heart rate 64 /min Dr. Cheikh Pinto MD Work Phone: [facility] 02-03-2025 09:05-0400 Respiratory rate 16 /min Dr. Cheikh iPnto MD Work Phone: [facility] 02-03-2025 09:05-0400 SaO2% (BldA) [Mass fraction] 97 % Dr. Cheikh Pinto MD Work Phone: [facility] 02-03-2025 09:05-0400 Systolic blood pressure 148 mm[Hg] Dr. Cheikh Pinto MD Work Phone: [facility] 12-29-2024 12:45-0400 Body height 157.5 cm Brent Cantu DO Work Phone: [facility] 12-29-2024 12:45-0400 Body mass index (BMI) [Ratio] 27.82 kg/m2 Brent Galveze DO Work Phone: [facility] 12-29-2024 12:45-0400 Body weight 69 kg Brent Cantu DO Work Phone: [facility] 12-29-2024 12:45-0400 Diastolic blood pressure 83 mm[Hg] Brent Galveze DO Work Phone: [facility] 12-29-2024 12:45-0400 Heart rate 70 /min Brent Galveze DO Work Phone: [facility] 12-29-2024 12:45-0400 Systolic blood pressure 143 mm[Hg] Brent Galveze DO Work Phone: [facility] 12-21-2024 11:07-0400 Body height 160.[address] Cheikh Pinto MD Work Phone: [facility] 12-21-2024 11:07-0400 Body mass index (BMI) [Ratio] 26.9 kg/m2 Dr. Cheikh Pinto MD Work Phone: [facility] 12-21-2024 11:07-0400 Body temperature 98.6 [degF] Dr. Cheikh Pinto MD Work Phone: [facility] 12-21-2024 11:07-0400 Body weight 69.[address] Cheikh Pinto MD Work Phone: [facility] 12-21-2024 11:07-0400 Diastolic blood pressure 78 mm[Hg] Dr. Cheikh Pinto MD Work Phone: [facility] 12-21-2024 11:07-0400 Heart rate 69 /min Dr. Cheikh Pinto MD Work Phone: [facility] 12-21-2024 11:07-0400 Respiratory rate 16 /min Dr. Cheikh Pinto MD Work Phone: [facility] 12-21-2024 11:07-0400 SaO2% (BldA) [Mass fraction] 98 % Dr. Cheikh Pinto MD Work Phone: [facility] 12-21-2024 11:07-0400 Systolic blood pressure 128 mm[Hg] Dr. Cheikh Pinto MD Work Phone: [facility] 10-19-2024 14:11-0400 Body height 160.[address] Cheikh Pinto MD Work Phone: [facility] 10-19-2024 14:11-0400 Body mass index (BMI) [Ratio] 27.6 kg/m2 Dr. Cheikh Pinto MD Work Phone: [facility] 10-19-2024 14:11-0400 Body temperature 98.6 [degF] Dr. Cheikh Pinto MD Work Phone: [facility] 10-19-2024 14:11-0400 Body weight 70.[address] Cheikh Pinto MD Work Phone: [facility] 10-19-2024 14:11-0400 Diastolic blood pressure 95 mm[Hg] Dr. Cheikh Pinto MD Work Phone: [facility] 10-19-2024 14:11-0400 Heart rate 66 /min Dr. Cheikh Pinto MD Work Phone: [facility] 10-19-2024 14:11-0400 Respiratory rate 16 /min Dr. Cheikh Pinto MD Work Phone: [facility] 10-19-2024 14:11-0400 SaO2% (BldA) [Mass fraction] 95 % Dr. Cheikh Pinto MD Work Phone: [facility] 10-19-2024 14:11-0400 Systolic blood pressure 190 mm[Hg] Dr. Cheikh Pinto MD Work Phone: [facility] 10-16-2023 12:19-0400 Diastolic blood pressure 84 mm[Hg] Bina Overton MD Work Phone: [facility] 10-16-2023 12:19-0400 Heart rate 61 /min Bina Overton MD Work Phone: [facility] 10-16-2023 12:19-0400 Respiratory rate 18 /min Bina Overton MD Work Phone: [facility] 10-16-2023 12:19-0400 SaO2% (BldA) [Mass fraction] 99 % Bina Overotn MD Work Phone: [facility] 10-16-2023 12:19-0400 Systolic blood pressure 184 mm[Hg] Bina vOerton MD Work Phone: [facility] 10-16-2023 11:45-0400 Body temperature 97.5 [degF] Bina Overton MD Work Phone: [facility] [facility] 09-16-2023 08:34-0400 Body height 157.5 cm Bina Overton MD Work Phone: [facility] 09-16-2023 08:34-0400 Body mass index (BMI) [Ratio] 29.15 kg/m2 Bina Overton MD Work Phone: [facility] 09-16-2023 08:34-0400 Body temperature 97.39 [degF] Bina Overton MD Work Phone: [facility] 09-16-2023 08:34-0400 Body weight 72.3 kg Bina Overton MD Work Phone: [facility] 09-16-2023 08:34-0400 Diastolic blood pressure 98 mm[Hg] Bina Overton MD Work Phone: [facility] 09-16-2023 08:34-0400 Heart rate 64 /min Bina Overton MD Work Phone: [facility] 09-16-2023 08:34-0400 SaO2% (BldA) [Mass fraction] 97 % Bina Overton MD Work Phone: [facility] 09-16-2023 08:34-0400 Systolic blood pressure 148 mm[Hg] Bina Overton MD Work Phone: [facility] 08-08-2023 13:55-0400 Body height 160.[address] Cheikh Pinto Work Phone: [facility] 08-08-2023 13:55-0400 Body mass index (BMI) [Ratio] 27.8 kg/m2 Dr. hCeikh Pinto Work Phone: [facility] 08-08-2023 13:55-0400 Body temperature 98.1 [degF] Dr. Cheikh Pinto Work Phone: [facility] 08-08-2023 13:55-0400 Body weight 71.[address] Cheikh Pinto Work Phone: [facility] 08-08-2023 13:55-0400 Diastolic blood pressure 88 mm[Hg] Dr. Cheikh Pinto Work Phone: [facility] 08-08-2023 13:55-0400 Heart rate 69 /min Dr. Cheikh Pinto Work Phone: [facility] 08-08-2023 13:55-0400 Respiratory rate 16 /min Dr. Cheikh Pinto Work Phone: [facility] 08-08-2023 13:55-0400 SaO2% (BldA) [Mass fraction] 98 % Dr. Cheikh Pinto Work Phone: [facility] 08-08-2023 13:55-0400 Systolic blood pressure 152 mm[Hg] Dr. Cheikh Pinto Work Phone: [facility] 07-11-2023 14:11-0400 Body mass index (BMI) [Ratio] 27.4 kg/m2 Dr. Cheikh Pinto Work Phone: [facility] 07-11-2023 14:11-0400 Body temperature 98.2 [degF] Dr. Cheikh Pinto Work Phone: [facility] 07-11-2023 14:11-0400 Body weight 70.[address] Cheikh Pinto Work Phone: [facility] 07-11-2023 14:11-0400 Diastolic blood pressure 81 mm[Hg] Dr. Cheikh Pinto Work Phone: [facility] 07-11-2023 14:11-0400 Heart rate 64 /min Dr. Cheikh Pinto Work Phone: [facility] 07-11-2023 14:11-0400 Respiratory rate 17 /min Dr. Cheikh Pinto Work Phone: [facility] 07-11-2023 14:11-0400 SaO2% (BldA) [Mass fraction] 98 % Dr. Cheikh Pinto Work Phone: [facility] 07-11-2023 14:11-0400 Systolic blood pressure 151 mm[Hg] Dr. Cheikh Pinto Work Phone: [facility] 12-18-2022 17:21-0400 Body height 160.[address] Cheikh Pinto Work Phone: [facility] 12-18-2022 17:21-0400 Body mass index (BMI) [Ratio] 24.9 kg/m2 Dr. Cheikh Pinto Work Phone: [facility] 12-18-2022 17:21-0400 Body temperature 98.2 [degF] Dr. Cheikh Pinto Work Phone: [facility] 12-18-2022 17:21-0400 Body weight 63.[address] Cheikh Pinto Work Phone: [facility] 12-18-2022 17:21-0400 Diastolic blood pressure 68 mm[Hg] Dr. Cheikh Pinto Work Phone: [facility] 12-18-2022 17:21-0400 Heart rate 74 /min Dr. Cheikh Pinto Work Phone: [facility] 12-18-2022 17:21-0400 Respiratory rate 14 /min Dr. Cheikh Pinto Work Phone: [facility] 12-18-2022 17:21-0400 SaO2% (BldA) [Mass fraction] 99 % Dr. Cheikh Pinto Work Phone: [facility] 12-18-2022 17:21-0400 Systolic blood pressure 96 mm[Hg] Dr. Cheikh Pinto Work Phone: [facility] 12-04-2022 08:49-0400 Body height 157.5 cm Brent Cantu DO Work Phone: [facility] 12-04-2022 08:49-0400 Body weight 66 kg Brent Cantu DO Work Phone: [facility] 12-04-2022 08:49-0400 Diastolic blood pressure 83 mm[Hg] Brent Cantu DO Work Phone: [facility] 12-04-2022 08:49-0400 Heart rate 60 /min Brent Cantu DO Work Phone: [facility] 12-04-2022 08:49-0400 Systolic blood pressure 181 mm[Hg] Brent Cantu DO Work Phone: [facility] 11-14-2022 13:03-0400 Body height 160.[address] Cheikh Pinto Work Phone: [facility] 11-14-2022 13:03-0400 Body mass index (BMI) [Ratio] 24.8 kg/m2 Dr. Cheikh Pinto Work Phone: [facility] 11-14-2022 13:03-0400 Body temperature 97.8 [degF] Dr. Cheikh Pinto Work Phone: [facility] 11-14-2022 13:03-0400 Body weight 63.[address] Cheikh Pinto Work Phone: [facility] 11-14-2022 13:03-0400 Diastolic blood pressure 78 mm[Hg] Dr. Cheikh Pinto Work Phone: [facility] 11-14-2022 13:03-0400 Heart rate 66 /min Dr. Cheikh Pinto Work Phone: [facility] 11-14-2022 13:03-0400 Respiratory rate 16 /min Dr. Cheikh Pinto Work Phone: [facility] 11-14-2022 13:03-0400 SaO2% (BldA) [Mass fraction] 95 % Dr. Cheikh Pinto Work Phone: [facility] 11-14-2022 13:03-0400 Systolic blood pressure 122 mm[Hg] Dr. Cheikh Pinto Work Phone: [facility] 11-10-2022 05:32-0400 Body height 160.[address] Cheikh Pinto Work Phone: [facility] 11-10-2022 05:32-0400 Body mass index (BMI) [Ratio] 25.2 kg/m2 Dr. Cheikh Pinto Work Phone: [facility] 11-10-2022 05:32-0400 Body temperature 97.3 [degF] Dr. Cheikh Pinto Work Phone: [facility] 11-10-2022 05:32-0400 Body weight 64.[address] Cheikh Pinto Work Phone: [facility] 11-10-2022 05:32-0400 Diastolic blood pressure 100 mm[Hg] Dr. Cheikh Pinto Work Phone: [facility] 11-10-2022 05:32-0400 Heart rate 94 /min Dr. Cheikh Pinto Work Phone: [facility] 11-10-2022 05:32-0400 Respiratory rate 20 /min Dr. Cheikh Pinto Work Phone: [facility] 11-10-2022 05:32-0400 SaO2% (BldA) [Mass fraction] 98 % Dr. Cheikh Pinto Work Phone: [facility] 11-10-2022 05:32-0400 Systolic blood pressure 139 mm[Hg] Dr. Cheikh Pinto Work Phone: [facility] 11-01-2022 00:53-0400 Diastolic blood pressure 74 mm[Hg] Dr. Cheikh Pinto Work Phone: [facility] 11-01-2022 00:53-0400 Heart rate 70 /min Dr. Cheikh Pinto Work Phone: [facility] 11-01-2022 00:53-0400 Respiratory rate 18 /min Dr. Cheikh Pinto Work Phone: [facility] 11-01-2022 00:53-0400 SaO2% (BldA) [Mass fraction] 97 % Dr. Cheikh Pinto Work Phone: [facility] 11-01-2022 00:53-0400 Systolic blood pressure 128 mm[Hg] Dr. Cheikh Pinto Work Phone: [facility] 10-31-2022 20:23-0400 Body mass index (BMI) [Ratio] 23.9 kg/m2 Dr. Cheikh Pinto Work Phone: [facility] 10-31-2022 20:23-0400 Body temperature 97.9 [degF] Dr. Cheikh Pinto Work Phone: [facility] 10-31-2022 20:23-0400 Body weight 61.[address] Cheikh Pinto Work Phone: [facility] 10-25-2022 15:30-0400 Body mass index (BMI) [Ratio] 25.2 kg/m2 Dr. Cheikh Pinto Work Phone: [facility] 10-25-2022 15:30-0400 Body temperature 97.6 [degF] Dr. Cheikh Pinto Work Phone: [facility] 10-25-2022 15:30-0400 Body weight 64.[address] Cheikh Pinto Work Phone: [facility] 10-25-2022 15:30-0400 Diastolic blood pressure 94 mm[Hg] Dr. Cheikh Pinto Work Phone: [facility] 10-25-2022 15:30-0400 Heart rate 57 /min Dr. Cheikh Pinto Work Phone: [facility] 10-25-2022 15:30-0400 Respiratory rate 16 /min Dr. Cheikh Pinto Work Phone: [facility] 10-25-2022 15:30-0400 SaO2% (BldA) [Mass fraction] 96 % Dr. Cheikh Pinto Work Phone: [facility] 10-25-2022 15:30-0400 Systolic blood pressure 163 mm[Hg] Dr. Cheikh Pinto Work Phone: [facility] 09-11-2022 07:38-0400 Body height 160 cm Brent Cantu DO Work Phone: [facility] 09-11-2022 07:38-0400 Body weight 66.9 kg Brent Cantu DO Work Phone: [facility] 09-11-2022 07:38-0400 Diastolic blood pressure 78 mm[Hg] Brent Cantu DO Work Phone: [facility] 09-11-2022 07:38-0400 Heart rate 73 /min Brent Cantu Work Phone: [facility] 09-11-2022 07:38-0400 Systolic blood pressure 118 mm[Hg] Brent Cantu Work Phone: [facility] 05-16-2022 14:51-0500 Body temperature 97.3 [degF] Dr. Cheikh Pinto Work Phone: [facility] 05-16-2022 14:51-0500 Body weight 71.[address] Cheikh Pinto Work Phone: [facility] 05-16-2022 14:51-0500 Diastolic blood pressure 98 mm[Hg] Dr. Cheikh Pinto Work Phone: [facility] 05-16-2022 14:51-0500 Heart rate 67 /min Dr. Cheikh Pinto Work Phone: [facility] 05-16-2022 14:51-0500 Respiratory rate 16 /min Dr. Cheikh Pinto Work Phone: [facility] 05-16-2022 14:51-0500 SaO2% (BldA) [Mass fraction] 97 % Dr. Cheikh Pinto Work Phone: [facility] 05-16-2022 14:51-0500 Systolic blood pressure 168 mm[Hg] Dr. Cheikh Pinto Work Phone: [facility] 02-12-2022 08:06-0400 Body temperature 97.3 [degF] Dr. Cheikh Pinto Work Phone: [facility] 02-12-2022 08:06-0400 Body weight 72.[address] Cheikh Pinto Work Phone: [facility] 02-12-2022 08:06-0400 Diastolic blood pressure 86 mm[Hg] Dr. Cheikh Pinto Work Phone: [facility] 02-12-2022 08:06-0400 Heart rate 67 /min Dr. Cheikh Pinto Work Phone: [facility] 02-12-2022 08:06-0400 Respiratory rate 16 /min Dr. Cheikh Pinto Work Phone: [facility] 02-12-2022 08:06-0400 SaO2% (BldA) [Mass fraction] 95 % Dr. Cheikh Pinto Work Phone: [facility] 02-12-2022 08:06-0400 Systolic blood pressure 135 mm[Hg] Dr. Cheikh Pinto Work Phone: [facility] Encounters Encounter Date Encounter Type Care Provider Facility Start: 02-14-2025 End: 02-16-2025 ambulatory CHEIKH M [facility] Start: 02-10-2025 End: 02-10-2025 Emergency department patient visit [facility] Micheal [facility] Start: 02-03-2025 End: 02-03-[address] Cheikh Pinto MD -[facility] Work Phone: Start: 02-03-2025 End: 02-03-2025 ambulatory Cheikh Pinto Facility:[facility] Start: 02-01-2025 End: 02-01-2025 Emergency department patient visit [facility] Felicia [facility] Start: 01-29-2025 End: 01-29-2025 Emergency department patient visit [facility] Start: 01-20-2025 ambulatory Cheikh Pinto Facility :[facility] Start: 01-18-2025 End: 01-22-2025 Evaluation and management of inpatient CORATTUR CASSIE Facility:[facility] Start: 01-18-2025 End: 01-18-2025 Emergency department patient visit [facility] Start: 01-12-2025 End: 01-12-2025 Emergency department patient visit [facility] Start: 01-01-2025 End: 01-01-2025 Emergency department patient visit RENATA FRANK [facility] Start: 12-29-2024 End: 12-29-2024 Patient encounter procedure Brent Cantu DO Work Phone: Gastroenterology Comment on above: Epigastric pain (Meena bony Dx); Hiatal hernia Start: 12-29-2024 End: 12-29-2024 ambulatory CHEIKH PINTO Facility:[facility] Start: 12-22-2024 End: 12-22-2024 Emergency department patient visit [facility] Start: 12-21-2024 End: 12-21-[address] Cheikh Pinto MD -[facility] Work Phone: Start: 12-21-2024 End: 12-21-[address] Cheikh Pinto MD Work Phone: -[facility] Start: 12-17-2024 End: 12-17-2024 ambulatory [facility] Start: 12-13-2024 End: 12-13-2024 Emergency department patient visit [facility] Start: 12-09-2024 End: 12-09-2024 Emergency department patient visit [facility] Start: 12-06-2024 End: 12-06-2024 Emergency department patient visit [facility] Start: 12-02-2024 End: 12-02-2024 Emergency department patient visit [facility] Start: 11-22-2024 End: 11-22-2024 Emergency department patient visit [facility] Start: 11-19-2024 End: 11-19-2024 Emergency department patient visit [facility] Start: 10-29-2024 End: 10-29-2024 Emergency department patient visit [facility] Start: 10-26-2024 End: 10-26-2024 Emergency department patient visit CHEIKH M [facility] Start: 10-19-2024 End: 10-19-[address] Cheikh Pinto MD -[facility] Work Phone: Start: 10-19-2024 End: 10-19-[address] Cheikh Pinto MD Work Phone: -[facility] Start: 10-12-2024 End: 10-12-2024 Telephone encounter Brent Cantu Work Phone: Gastroenterology Comment on above: Appointment Start: 10-12-2024 End: 10-13-2024 ambulatory [facility] Start: 10-11-2024 End: 10-11-2024 Emergency department patient visit [facility] Start: 10-06-2024 End: 10-06-2024 Emergency department patient visit [facility] Start: 09-01-2024 End: 09-01-2024 Emergency department patient visit [facility] Start: 08-24-2024 End: 08-24-2024 Emergency department patient visit [facility] Start: 08-19-2024 End: 08-19-2024 ambulatory [facility] Start: 08-18-2024 End: 08-18-2024 Emergency department patient visit [facility] Start: 07-29-2024 End: 07-29-2024 Emergency department patient visit [facility] Start: 07-20-2024 End: 07-20-2024 Emergency department patient visit [facility] Start: 07-10-2024 End: 07-10-2024 ambulatory [facility] Start: 07-01-2024 End: 07-01-2024 Emergency department patient visit [facility] Start: 05-20-2024 End: 05-20-2024 Emergency department patient visit CHEIKH PINTO [facility] Start: 05-13-2024 End: 05-13-2024 Emergency department patient visit ERWIN Duarte JOSE [facility] Start: 03-07-2024 End: 03-07-2024 Emergency department patient visit CAN CANTOR [facility] Start: 02-24-2024 End: 02-24-2024 ambulatory Cheikh Pinto Facility:[facility] Start: 02-19-2024 End: 02-20-2024 Emergency department patient visit Lázaro Bermeo Facility:[facility] Start: 02-17-2024 End: 02-18-2024 ambulatory Vaishali Ren Facility:[facility] Start: 10-16-2023 ambulatory MATT ACOSTA Facility:[facility] Start: 10-16-2023 End: 10-16-2023 Subsequent hospital visit by physician Bina Overton MD Work Phone: [facility] End[facility] Comment on above: Dysphagia, unspecifi ed type [R13.10] Start: 09-16-2023 End: 09-16-2023 Patient encounter procedure Bina Overton MD Work Phone: General Surgery Comment on above: Dysphagia, unspecifi ed type (Primary Dx) Start: 08-08-2023 End: 08-08-[address] Cheikh Pinto Work Phone: [facility] Work Phone: Start: 08-08-2023 End: 08-08-[address] Cheikh Pinto Work Phone: [facility] Start: 08-08-2023 End: 08-08-[address] Cheikh Pinto Work Phone: [facility] Work Phone: Start: 07-11-2023 End: 07-11-[address] Cheikh Pinto Work Phone: [facility] [place] Work Phone: Start: 12-25-2022 Telephone encounter Brent Cantu DO Work Phone: Gastroenterology Comment on above: Results - Ct Start: 12-19-2022 ambulatory Brent duarte DO Work Phone: Gastroenterology Comment on above: X ray Start: 12-18-2022 End: 12-18-2022 Emergency department patient [facility] Start: 12-04-2022 End: 12-04-2022 Patient encounter procedure Brent Cantu DO Work Phone: Gastroenterology Comment on above: History of malignant carcinoid tumor (Primary Dx); Nausea and vomiting, unspecified vomiting type; Malnutrition of mild degree (HCC) Start: 11-14-2022 End: 11-14-[address] Cheikh Pinto Work Phone: [facility] Work Phone: Start: 11-14-2022 End: 11-14-[address] Cheikh Pinto Work Phone: [facility] Work Phone: Start: 11-14-2022 End: 11-14-[address] Cheikh Pinto Work Phone: [facility] [place] Work Phone: Start: 11-10-2022 End: 11-10-2022 Emergency department patient [facility] Start: 10-31-2022 End: 11-01-2022 Emergency department patient [facility] Start: 10-25-2022 End: 10-25-[address] Cheikh Pinto Work Phone: [facility] [place] Work Phone: Start: 10-10-2022 Telephone encounter Brent Cantu DO Work Phone: Gastroenterology Comment on above: Received Outside Med ical Records Start: 10-04-2022 Telephone encounter Brent Cantu DO Work Phone: Gastroenterology Comment on above: Patient Update; Maria T ent Question Start: 09-11-2022 End: 09-11-2022 Subsequent hospital visit by physician [facility] Comment on above: Constipation, unspec ified constipation type [K59.00] Start: 09-11-2022 End: 09-11-2022 Patient encounter procedure Brent Cantu DO Work Phone: Gastroenterology Comment on above: Constipation, unspec ified constipation type (Primary Dx); Nausea and vomiting, unspecified vomiting type Start: 05-16-2022 End: 05-16-[address] Cheikh Pinto Work Phone: [facility] Work Phone: Start: 05-16-2022 End: 05-16-[address] [facility] Start: 05-16-2022 End: 05-16-[address] Cheikh Pinto Work Phone: [facility] [place] Start: 02-12-2022 End: 02-12-[address] Cheikh Pinto Work Phone: [facility] [place] Start: 12-07-2021 End: 12-07-[facility] Start: 12-07-2021 End: 12-07-2021 Patient encounter procedure [facility] Procedures Date Procedure Procedure Detail Performing Clinician Start: 02-10-2025 Urinalysis CHEIKH PINTO Comment on above: Result Comment: URINALYSIS Performed By: #### [id number] ####[place] [id number] Start: 12-06-2024 Urinalysis CHEIKH PINTO Comment on above: Result Comment: URINALYSIS Performed By: #### [id number] ####[place] [id number] Start: 12-02-2024 Urinalysis CHEIKH PINTO Comment on above: Result Comment: URINALYSIS Performed By: #### [id number] ####[place] [id number] Start: 11-22-2024 Urinalysis CHEIKH PINTO Comment on above: Result Comment: URINALYSIS Performed By: #### [id number] ####[place] [id number] Start: 11-19-2024 Urinalysis CHEIKH PINTO Comment on above: Result Comment: URINALYSIS Performed By: #### [id number] ####[place] [id number] Start: 10-12-2024 Urinalysis CHEIKH PINTO Comment on above: Result Comment: URINALYSIS Performed By: #### [id number] ####[place] [id number] Start: 03-07-2024 Urinalysis CHEIKH PINTO Comment on above: Result Comment: URINALYSIS Performed By: #### [id number] ####[place] [id number] Start: 10-16-2023 Esophagogastroduodenoscopy transoral diagnostic iBna Overton MD Work Phone: Start: 12-18-2022 Computed tomography of abdomen and pelvis with intravenous contrast Dr. Cheikh Pinto Work Phone: Start: 10-31-2022 Bacteria identified in Urine by Culture Dr. Cheikh Pinto Work Phone: Start: 10-31-[address] Cheikh Pinto Work Phone: Start: 09-11-2022 Radiologic exam abdomen 1 view Brent Banks Alondra DENSON Work Phone: Start: 11-07-2018 Colonoscopy Brent Cantu DO Work Phone: Start: 03-30-2016 Mammography Brent Cantu DO Work Phone: Start: 12-13-2014 Lipid 1996 panel - Serum or Plasma George taj Cantu DO Work Phone: Laboratory test result abnormal Other abnormal tumor markers Dr. Cheikh Pinto MD Work Phone: Plan of Treatment Date Care Activity Detail Author Start: 11-07-2028 Colonoscopy COLONOSCOPY [facility] Start: 11-07-2028 COLORECTAL CANCER SCREENING COLORECTAL CANCER SCREENING [facility] Start: 11-07-2028 Screening for malignant neoplasm of colon [facility] Start: 03-30-2026 Urine microalbumin profile [facility] Start: 2026 RSV Vaccine (1 - 1-dose 75+ series) RSV Vaccine (1 - 1-dose 75+ series) [facility] Start: 10-04-2025 DIABETES SCREEN DIABETES SCREEN [facility] Start: 10-04-2025 Diabetes Screening Diabetes Screening [facility] Start: 09-04-2025 DIABETES SCREEN DIABETES SCREEN [facility] Start: 12-14-2024 Influenza vaccination [facility] Start: 11-16-2024 End: 11-16-2024 ambulatory 11/16/2024 1:40 PM EDT [facility] Gastroenterology [address] [place] [address] Brent Cantu DO [address] [place] [address] gp f/u/hospital f/u swallowing issues Gastroenterology Comment on above: gp f/u/hospital f/u swallowing issues Start: 04-15-2024 Advance Directive Discussion Advance Directive Discussion [facility] Start: 04-15-2024 Medicare Advantage Annual Wellness Visit Medicare Advantage Annual Wellness Visit [facility] Start: 12-15-2023 Covid-19 Vaccine ( season) Covid-19 Vaccine ( season) [facility] Start: 12-15-2023 Influenza vaccination [facility] Start: 10-16-2023 End: 10-16-2023 Patient encounter procedure 10/16/2023 3:00 PM EDT Appointment [facility] [address] [place] [address] Bina Overton MD [address] [place] [address] egd [facility] Comment on above: egd Start: 08-08-2023 Patient referral [facility] Work Phone: Start: 04-15-2023 Advance Directive Discussion Advance Directive Discussion [facility] Start: 04-15-2023 Behavioral Health Screening Behavioral Health Screening [facility] Start: 12-14-2022 Covid-19 Vaccine ( season) Covid-19 Vaccine () [facility] Start: 12-14-2022 Influenza vaccination [facility] Start: 04-15-2022 ADVANCE DIRECTIVE DISCUSSION ADVANCE DIRECTIVE DISCUSSION [facility] Start: 04-15-2022 DEPRESSION ASSESSMENT DEPRESSION ASSESSMENT [facility] Start: 04-23-2021 COVID-19 VACCINE (4 - Booster for Moderna series) COVID-19 VACCINE (4 - Booster for Moderna series) [facility] Start: 04-23-2021 COVID-19 VACCINE (4 - Moderna series) COVID-19 VACCINE (4 - Moderna series) [facility] Start: 12-14-2019 Lipid 1996 panel - Serum or Plasma Lipid Screening [facility] Start: 12-14-2019 Lipid panel Lipid Screening [facility] Start: 12-14-2019 LIPID SCREEN LIPID SCREEN [facility] Start: 03-30-2017 Mammography [facility] Start: 03-30-2017 Screening for malignant neoplasm of breast Mammogram Screening [facility] Start: 01-03-2016 BONE DENSITY BONE DENSITY [facility] Start: 01-03-2016 Bone Density Screening Bone Density Screening [facility] Start: 01-03-2016 Pneumococcal Vaccine: 65+ (1 - PCV) Pneumococcal Vaccine: 65+ (1 - PCV) [facility] Start: 01-03-2016 PNEUMOCOCCAL: 65+ (1 - PCV) PNEUMOCOCCAL: 65+ (1 - PCV) [facility] Start: 01-03-2016 Screening for osteoporosis Bone Density Screening [facility] Start: 2011 RSV Vaccine (1 - 1-dose 60+ series) RSV Vaccine (1 - 1-dose 60+ series) [facility] Start: 2001 SHINGRIX VACCINE (1 of 2) SHINGRIX VACCINE (1 of 2) [facility] Start: 01-03-1996 COLOGUARD (FIT-DNA) COLOGUARD (FIT-DNA) [facility] Start: 01-03-[address] COLONOGRAPHY [facility] Start: 01-03-1996 FECAL OCCULT BLOOD FECAL OCCULT BLOOD [facility] Start: 01-03-1996 Screening for malignant neoplasm of colon [facility] Start: 01-03-1996 SIGMOIDOSCOPY SIGMOIDOSCOPY [facility] Start: 1969 ANNUAL PCP TEAM CHRONIC DISEASE VISIT ANNUAL PCP TEAM CHRONIC DISEASE VISIT [facility] Start: 1969 Anxiety Screening Anxiety Screening [facility] Start: 1969 Depression Screening Depression Screening [facility] Start: 1969 HEPATITIS C SCREENING HEPATITIS C SCREENING [facility] Start: 1969 Hepatitis C screening Hepatitis C Screening [facility] 5-Hydroxyindoleaceta te [Mass/time] in 24 hour Urine HIAA-5 QUANT 24H UR Lab Routine History of malignant carcinoid tumor Ordered: 12/04/2022 [facility] Work Phone: Comment on above: Ordered: 12/04/2022 CBC W Auto Different ial panel - Blood [facility] End: 09-15-2024 EGD DIAGNOSTIC EGD DIAGNOSTIC Endoscopy Routine Dysphagia, unspecified type 1 Occurrences starting 09/16/2023 until 09/15/2024 [facility] Work Phone: Comment on above: 1 Occurrences starting 09/16/2023 until 09/15/2024 Lipid 1996 panel - S mon[place] or Plasma [facility] Patient Education [facility] Work Phone: Patient referral [facility] Work Phone: End: 01-28-2026 RF Gastrointestinal tract upper Views W barium contrast PO XR UPPER GI SINGLE CONTRAST Radiology Routine Epigastric pain 1 Occurrences starting 12/29/2024 until 01/28/2026 [facility] Work Phone: Comment on above: 1 Occurrences starting 12/29/2024 until 01/28/2026 SURGICAL PATHOLOGY [facility] Work Phone: Comment on above: Release Upon Ordering for 1 Occurrences starting 10/16/2023, 1 completed T4 free measurement [facility] Thyroid stimulating hormone measurement [facility] Triiodothyronine, fr ee measurement [facility] Vitamin B12 measurement [facility] Vitamin D, 25-hydrox y measurement [facility] End: 01-28-2026 XR GI SMALL BOWEL FOLLOW-THRU XR GI SMALL BOWEL FOLLOW-THRU Radiology Routine Epigastric pain 1 Occurrences starting 12/29/2024 until 01/28/2026 [facility] Comment on above: 1 Occurrences starting 12/29/2024 until 01/28/2026 [facility] Immunizations Immunization Date Immunization Notes Care Provider [facility] 02-24-2024 Seasonal trivalent influenza vaccine, adjuvanted, preservative free Dr. Cheikh Pinto MD Work Phone: [facility] 02-24-2024 influenza virus vaccine, unspecified formulation Brent Cantu DO Work Phone: [facility] 01-27-2022 influenza virus vaccine, unspecified formulation Brent Cantu DO Work Phone: [facility] 02-03-2020 influenza, injectabl e, quadrivalent, preservative free Dr. Cheikh Pinto Work Phone: [facility] 02-03-2020 influenza, seasonal, injectable [facility] 03-30-2016 influenza, high dose seasonal, preservative-free Brent Cantu DO Work Phone: [facility] 03-30-2016 tetanus toxoid, redu rolan diphtheria toxoid, and acellular pertussis vaccine, adsorbed Brent Cantu DO Work Phone: [facility] Payers Date Payer Category Payer Self-pay [id number] 2019 Medicare (Managed Care) PRIMETIM E [id number] 2019 Unknown PRIMETIME PRIMET VIVEK HMO POS [id number] 2019-Present [phone] [address] [place] [id number] O [id number] 2019 Unknown [id number] 2012 Unknown [id number] 1950 Unknown [id number] 2.16.840.1.917562.3.579.2.6 51 1951 Unknown [id number] 2.16.840.1.330778.3.579.2.6 51 1951 Unknown [id number] 2.16.840.1.736908.3.579.2.6 51 1951 Unknown [id number] 2.16.840.1.024103.3.579.2.6 51 1951 Unknown [id number] 2.16.840.1.399988.3.579.2.6 51 1951 Unknown [id number] 2.16.840.1.212114.3.579.2.6 51 1951 Unknown [id number] 2.16.840.1.909911.3.579.2.6 51 1951 Unknown [id number] 2.16.840.1.342907.3.579.2.6 51 1951 Unknown [id number] 2.16.840.1.998052.3.579.2.6 51 1951 Unknown [id number] 2.16.840.1.488231.3.579.2.6 51 1951 Unknown [id number] 2.16.840.1.080691.3.579.2.6 51 1951 Unknown [id number] 2.16.840.1.777656.3.579.2.6 51 1951 Unknown [id number] 2.16.840.1.775029.3.579.2.6 51 1951 Unknown [id number] 2.16.840.1.937271.3.579.2.6 51 1951 Unknown [id number] 2.16.840.1.796285.3.579.2.6 51 1951 Unknown [id number] 2.16.840.1.820900.3.579.2.6 51 1951 Unknown [id number] 2.16.840.1.589083.3.579.2.6 51 1951 Unknown [id number] 2.16.840.1.722574.3.579.2.6 51 1951 Unknown [id number] 2.16.840.1.919854.3.579.2.6 51 1951 Unknown [id number] 2.16.840.1.410273.3.579.2.6 51 1951 Unknown [id number] 2.16.840.1.706567.3.579.2.6 51 1951 Unknown [id number] 2.16.840.1.710018.3.579.2.6 51 1951 Unknown [id number] 2.16.840.1.215215.3.579.2.6 51 1951 Unknown [id number] 2.16.840.1.463385.3.579.2.6 51 1951 Unknown [id number] 2.16.840.1.630426.3.579.2.6 51 1951 Unknown [id number] 2.16.840.1.595111.3.579.2.6 51 1951 Unknown [id number] 2.16.840.1.762508.3.579.2.6 51 1951 Unknown [id number] 2.16.840.1.666246.3.579.2.6 51 1951 Unknown [id number] 2.16.840.1.479342.3.579.2.6 51 1951 Unknown [id number] 2.16.840.1.073993.3.579.2.6 51 1951 Unknown [id number] 2.16.840.1.204031.3.579.2.6 51 Medicare Unknown [id number] 2.16.840.1.222869.3.579.2.4 62 Unknown [id number] 2.16.840.1.172111.3.579.2.4 62 Unknown [id number] 2.16.840.1.963731.3.579.2.4 62 Unknown [id number] 2.16.840.1.448429.3.579.2.4 62 Unknown [id number] 2.16.840.1.540858.3.579.2.4 62 Unknown [id number] 2.16.840.1.992004.3.579.2.4 62 Unknown [id number] 2.16.840.1.131451.3.579.2.4 62 Unknown [id number] 2.16.840.1.056104.3.579.2.4 62 Unknown [id number] 2.16.840.1.968068.3.579.2.4 62 Social History Date Type Detail Facility Start: 01-24-2021 End: 07-11-2023 Tobacco smoking status COIS Unknown if ever smoked [facility] Start: 1950 Sex Assigned At Female W [facility] Start: 09-15-2018 End: 02-19-2024 Tobacco smoking status COIS Never smoked tobacco [facility] Start: 09-15-2018 Tobacco use and exposure Smokeless tobacco non-user [facility] Start: 05-21-2019 End: 09-16-2023 Alcohol intake Current drinker of alcohol (finding) [facility] Start: 11-28-2012 Alcohol Comment [facility] Start: 05-21-2019 End: 12-04-2022 History of Social function [facility] Work Phone: Start: 05-21-2019 End: 12-04-2022 Tobacco use panel [facility] Work Phone: Start: 04-01-2012 PHQ2 Score 0 [facility] Work Phone: Start: 04-09-2019 Gender identity Identifies as female gender (finding) [facility] Functional Status Date Assessment Result Facility 11-08-2018 Are you deaf, or do you have serious difficulty hearing No 11/08/2018 10:24 AM Gene Ruiz RN No [facility] 11-08-2018 Are you blind, or do you have serious difficulty seeing, even when wearing glasses No 11/08/2018 10:24 AM Gene Ruiz RN No [facility] 11-08-2018 Do you have serious difficulty walking or climbing stairs No 11/08/2018 10:24 AM Gene Ruiz RN No [facility] 11-08-2018 Do you have difficul ty dressing or bathing No 11/08/2018 10:24 AM Gene Ruiz RN No [facility] 11-08-2018 Because of a physica l, mental, or emotional condition, do you have difficulty doing errands alone such as visiting a physician's office or shopping No 11/08/2018 10:24 AM Gene Ruiz RN No [facility] Mental Status Date Assessment Result Facility 11-08-2018 Because of a physica l, mental, or emotional condition, do you have serious difficulty concentrating, remembering, or making decisions No 11/08/2018 10:24 AM Gene Ruiz RN No [facility] Clinical Notes 11-05-2018 to 02-03-2025 Brent Cantu, DO - 12/29/2024 1:03 PM EDT Note Date & Type Note Facility 02-03-2025 Progress note [facility] 01-22-2025 Note HNO ID: [id number] Author: LUCILA PARIKH RN Service: Care Management Author Type: Registered Nurse Type: Care Mgt Progress Note Filed: 01/22/2025 12:08 Note Text: CARE MANAGEMENT PROGRESS NOTE SERVICE DATE: 01/22/2025 SERVICE TIME: 12:08 PM LOS: 2 days IMM Follow Up Copy Given: Yes Copy given to:: Patient Method: In Person SIGNATURE: Lucila Parikh RN PATIENT NAME: Bony Huang DATE: January 22, 2025 TIME: 12:08 PM [facility] 01-22-2025 Note HNO ID: [id number] Author: LUCILA PARIKH RN Service: Care Management Author Type: Registered Nurse Type: Care Mgt Progress Note Filed: 01/22/2025 12:07 Note Text: CARE MANAGEMENT DISCHARGE NOTE SERVICE DATE: January 22, 2025 SERVICE TIME: 12:06 PM Admission Date: 01/18/2025 LOS: 2 days Discharge Arrangement Discharge Arrangement: Home with Self Care Services Arranged Provider Name: Cheikh Pinto Caregiver Assessment Caregiver is ready, willing and able to meet the patient's needs as recommended by the inter-professional team: No Caregiver needed Transportation Arrangements Transportation Arrangements: Car Date of Trip: 01/22/25 Destination: home Handoff Communication: Handoff to: Primary Care Physician Primary Care Physician Name/Phone: cheikh harringtonner Additional Information: pt has been medically cleared for dc to home w self care. Soc routed. Pts will transport at dc SIGNATURE: Lucila Parikh RN PATIENT NAME: Bony Huang DATE: January 22, 2025 TIME: 12:06 PM [facility] 01-22-2025 Note HNO ID: [id number] Author: YUMIKO LEWIS PA-C Service: General Internal Medicine Author Type: Physician Dealer Sales Rep Type: Progress Notes Filed: 01/22/2025 11:59 Note Text: DISCHARGE READINESS NOTE PATIENT NAME: Bony Huang Code Status: Full Code ADMISSION DATE: 01/18/2025 DISCHARGE DATE: 01/22/2025 PRIMARY CARE PHYSICIAN: Cheikh Pinto MD [facility] ATTENDING PHYSICIAN: Theresa Matthews MD PATIENT CONDITION AT DISCHARGE: DISCHARGE DISPOSITION: REASON FOR HOSPITALIZATION/DIAGNOSIS: Principal Problem: Nausea vomiting and diarrhea (POA: Yes) Active Problems: GERD (gastroesophageal reflux disease) (POA: Yes) Acquired hypothyroidism (POA: Yes) Malnutrition of mild degree (HCC) (POA: Yes) Gastroparesis (POA: Yes) ALICIA (acute kidney injury) (POA: Yes) Overweight (POA: Yes) Hiatal hernia without gangrene and obstruction (POA: Yes) History of gastritis (POA: Yes) History of malignant carcinoid tumor of small intestine (POA: Yes) NANDV (nausea and vomiting) (POA: Yes) Irritable bowel syndrome with constipation (POA: Unknown) Resolved Problems: * No resolved hospital problems. * CARE TEAM DURING HOSPITALIZATION: Treatment Team: Attending Provider: Theresa Matthews MD Physician Dealer Sales Rep: Indigo Sr PA-C Consulting: Shyanne Sanchez MD OPERATIONS DURING HOSPITALIZATION: PROCEDURES DURING HOSPITALIZATION: TRANSITION OF CARE ISSUES: None LABS AND PROCEDURES PENDING AT DISCHARGE: No pending results. HOSPITAL COURSE: 75 y/o female with past medical history of GERD, Hypothroidism, N/V presents to [facility] via transfer from another hospital with complaints of nausea, vomiting and diarrhea. GI was consulted for gastroparesis. .Recommendations: Patient is not good at requesting PRN meds. Will Zofran for nausea and vomiting. Patient requested PPI stating it would help her symptoms. Would not recommend a scheduled loperamide in the consideration of her constipation history. Patient has cycles of constipation then diarrhea then vomiting. - Zofran as needed - Pantoprazole 40 mg oral twice daily - MiraLAX as needed when constipated - Imodium as needed for diarrhea - Continue Fibers such as Metamucil for post constipation diarrhea - Follow-up outpatient ADDITIONAL DISPOSITION INFORMATION: None DISCHARGE PHYSICAL EXAM: CONSTITUTIONAL: Not in acute distress. HEENT: Normocephalic. Atraumatic. CARDIOVASCULAR: Well perfused. PULMONARY: Normal respiratory effort. ABDOMINAL: Abdomen nondistended. MUSCULOSKELETAL: No gross deformities. NEUROLOGICAL: Alert and oriented at baseline. BEHAVIORAL: Cooperative and age-appropriate. DIET: ACTIVITY: WOUND/SURGICAL SITE CARE: ALLERGIES Allergen Reactions Asa [Aspirin] Other: See Comments nose bleeds Bactrim [Sulfametho* Swelling Sulfa (Sulfonamide * Swelling Lip swelling DISCHARGE MEDICATIONS: Medication List CHANGE how you take these medications pantoprazole DR 40 mg tablet Commonly known as: PROTONIX Take 1 tablet by mouth two times a day before meals at 6 am and 4 pm. What changed: medication strength how much to take when to take this potassium chloride 10 mEq tablet Commonly known as: K-TAB Take 1 tablet by mouth once daily. What changed: when to take this CONTINUE taking these medications BENADRYL ALLERGY PO cetirizine 10 mg tablet Commonly known as: ZyrTEC Take 1 tablet by mouth once daily. ergocalciferol (vitamin D2) 50 mcg (2,000 unit) Cap levothyroxine 88 mcg tablet Commonly known as: SYNTHROID melatonin 5 mg tablet MOTEGRITY 2 mg Tab tablet Generic drug: prucalopride PAPAYA ENZYME PO promethazine 12.5 mg tablet Commonly known as: PHENERGAN vitamin b complex capsule Vitamin D-3 50 mcg (2,000 unit) Cap Generic drug: Cholecalciferol (Vitamin D3) STOP taking these medications POTASSIUM-99 ORAL Where to Get Your Medications These medications were sent to [facility] [address] [place] [phone] [facility] - [phone] [facility] [address] 40 mg tablet FUTURE APPOINTMENTS: Appointments for Next 45 Days None Follow Up Orders Not Yet Scheduled Follow Up Appointment - PCP/Primary Care; Yes; Within 7 days; No; [facility] Provider; Cheikh Pinto MD ONCE Comments: nausea/vomiting, post hospital discahrge follow up Follow Up Appointment - Gastroenterology; No; less than 2 weeks; No; [facility] Provider; SHYANNE SANCHEZ ONCE Comments: gastroparesis, IBS, Nausea/vomting INFORMATION PROVIDED TO PATIENT: See After Visit Summary/Discharge Instructions Highest Readmission Risk Score: 15 The 30 day readmissions risk score is derived from an internally validated risk model which evaluates patient level characteristics, utilization history, medication orders and lab results up until the day of discharge. Patients with (more content not included)... [facility] 01-22-2025 Note HNO ID: [id number] Author: THERESA MATTHEWS MD Service: General Internal Medicine Author Type: Physician Type: Progress Notes Filed: 01/22/2025 21:27 Note Text: PROGRESS NOTE - INTERNAL MEDICINE PATIENT NAME: Bony Huang SERVICE DATE: 01/22/2025 ADMITTING PHYSICIAN: Theresa Matthews MD ASSESSMENT AND PLAN Assessment AND Plan Nausea vomiting and diarrhea Present on Admission: Yes No evid of acute infection. Probably secondary to IBS-constipation. GI input noted. 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 Resolved with hydration Overweight Present on Admission: Yes Hiatal hernia without gangrene and obstruction Present on Admission: Yes GERD (gastroesophageal reflux disease) Present on Admission: Yes On PPI at home. History of malignant carcinoid tumor of small intestine Present on Admission: Yes Irritable bowel syndrome with constipation Present on Admission: Status not on file PLAN: IV fluids for ALICIA with good effect Advance diet, in coordination with GI recommendation. Supportive care with antiemetics PPI po as at home. Bowel regimen, per GI recommendation. Continue levothyroxine. DVT prophylaxis Discharge is planned for today to home. Hospital course , medication changes and Investigation's conducted were reviewed with the patient / Family. Activity, Diet and Medications after discharge were reviewed with the patient / Family. Medication reconciliation done - pls refer to medication reconciliation sheet.Follow up with Primary Care Physician were reviewed with the patient / Family. Discharge planning was discussed with staff. Refer to discharge orders sheet. Total time to coordinate disch process incl counseling family, coordinating with other care givers, registered nurse hh case manager and pharmacist was >35 min. INTERVAL HISTORY OF PRESENT ILLNESS: +emesis AND diarrhea overnight and today. No chest pain/sob. Oral intake Poor. No fever/chills. acute events from last 24 hrs reviewed. Pertinent ROS: No abdominal pain / No Bleeding / No rashes Discussed with nursing and case management team and the specialists involved in this patient's care. Reviewed the EMR and documentation from other care-givers. OBJECTIVE PHYSICAL EXAM: GENERAL: AAOx3, resting comfortably, cheerful SKIN: Skin turgor normal. HEENT: no epistaxis, Moist mucosa. LUNGS: bilateral breath sounds, with no added sounds. CARDIAC: REGULAR. no rubs, no murmur ABDOMEN: soft, non-tender. BS+. upper midline laparotomy scar intact. EXTREMITIES: No edema, Good capillary refill. NEURO: Insight GOOD. No invol movements MUSCULOSKELETAL: No acute inflammation Plan of care discussed with: Provider, RN, Patient. Patient Vitals for the past 24 hrs: BP Temp Temp src Pulse Resp SpO2 01/22/25 0735 125/66 -- -- (!) 55 -- 97 % 01/22/25 0734 128/113 36.6 ?C (97.9 ?F) Oral (!) 59 19 98 % 01/22/25 0442 124/70 36.5 ?C (97.7 ?F) Oral (!) 56 18 97 % 01/21/25 2117 141/84 36.9 ?C (98.4 ?F) Oral 67 18 93 % 01/21/25 1507 153/78 36.4 ?C (97.5 ?F) -- 75 18 98 % Body mass index is 27.02 kg/m?. Intake/Output Summary (Last 24 hours) at 01/22/2025 0659 Last data filed at 01/22/2025 0616 Gross per 24 hour Intake 3697 ml Output 200 ml Net 3497 ml Current Facility-Administered Medications Medication Dose Route Frequency NaCl 0.9% iv flush bag 20 mL INTRAVENOUS PRN docusate sodium 100 mg cap(s) (COLACE) 100 mg ORAL BID PRN acetaminophen 650 mg tab(s) (TYLENOL) 650 mg ORAL q 6 H PRN heparin 5,000 Units injection 5,000 Units SUBCUTANEOUS q 12 H levothyroxine 88 mcg tab(s) (SYNTHROID) 88 mcg ORAL BEFORE BREAKFAST DAILY melatonin 6 mg tab(s) 6 mg ORAL AT BEDTIME PRN loperamide 2 mg cap(s) (IMODIUM) 2 mg ORAL TID PRN scopolamine (delivers 1 mg over 3 days) 1 patch (TRANSDERM-SCOP) 1 patch TRANSDERMAL q 72 HR And [START ON 01/24/2025] scopolamine - REMOVE PATCH OTHER q 72 HR And scopolamine - VERIFY patch OTHER q 8 H pantoprazole 40 mg injection (PROTONIX) 40 mg INTRAVENOUS BID AC (0600/1600) ondansetron (PF) 4 mg injection (ZOFRAN) 4 mg INTRAVENOUS QID prochlorperazine 5 mg injection (COMPAZINE) 5 mg INTRAVENOUS q 6 H PRN DATA: Diagnostic tests reviewed for today's visit: Most recent labs Recent Labs 01/22/25 0611 01/21/25 0550 01/20/25 0459 WBC 10.98 10.83 8.25 HB 12.7 16.0* 13.6 HCT 38.4 46.6* 40.9 PLT 222 288 228 NA 137 139 138 K 4.1 3.2* 4.1 CHLOR 104 91* 103 CO2 19* 24 21* BUN 20 29* 12 CREAT 0.92 1.67* 0.84 GLUC 93 123* 100* CA 8.5 9.7 9.2 MG 1.8 1.8 1.8 Recent Labs 01/22/25 0611 01/21/25 0550 01/20/25 0459 TPROT 6.0* 8.3* 6.9 ALB 3.6* 4.8 4.2 ALT 8 1 (more content not included)... [facility] 01-21-2025 Note HNO ID: [id number] Author: PHUC THOMAS RN Service: Care Management Author Type: Registered Nurse Type: Care Mgt Progress Note Filed: 01/21/2025 12:04 Note Text: CARE MANAGEMENT PROGRESS NOTE SERVICE DATE: 01/21/2025 SERVICE TIME: 12:02 PM LOS: 1 day Needs Prior to Discharge: To Be Determined [place] of Choice Given: No Reason Not Given: No placements necessary Anticipate dc plan return home with spouse with skilled needs. Awaiting medical clearance. Spouse to provide transportation at dc. Cm will continue to follow for any evolving needs. Medical Plan- admitted with nausea, vomiting and diarrhea. IVF. GI f/u. Monitor labs. Monitor vss. SIGNATURE: Phuc Thomas RN PATIENT NAME: Bony Huang DATE: January 21, 2025 TIME: 12:02 PM [facility] 01-21-2025 Note HNO ID: [id number] Author: THERESA MATTHEWS MD Service: General Internal Medicine Author Type: Physician Type: Progress Notes Filed: 01/21/2025 13:28 Note Text: PROGRESS NOTE - INTERNAL MEDICINE PATIENT NAME: Bony Huang SERVICE DATE: 01/21/2025 ADMITTING PHYSICIAN: Theresa Matthews MD ASSESSMENT AND PLAN Assessment AND Plan Nausea vomiting and diarrhea Present on Admission: Yes No evid of acute infection. Probably secondary to IBS-constipation. GI input noted. 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 Overweight Present on Admission: Yes Hiatal hernia without gangrene and obstruction Present on Admission: Yes GERD (gastroesophageal reflux disease) Present on Admission: Yes On PPI at home. History of malignant carcinoid tumor of small intestine Present on Admission: Yes Irritable bowel syndrome with constipation Present on Admission: Status not on file PLAN: IV fluids for ALICIA. Advance diet, in coordination with GI recommendation. Supportive care with antiemetics PPI po as at home. Bowel regimen, per GI recommendation. Continue levothyroxine. DVT prophylaxis INTERVAL HISTORY OF PRESENT ILLNESS: +emesis AND diarrhea overnight and today. No chest pain/sob. Oral intake Poor. No fever/chills. acute events from last 24 hrs reviewed. Pertinent ROS: No abdominal pain / No Bleeding / No rashes Discussed with nursing and case management team and the specialists involved in this patient's care. Reviewed the EMR and documentation from other care-givers. OBJECTIVE PHYSICAL EXAM: GENERAL: AAOx3, resting comfortably, cheerful SKIN: Skin turgor normal. HEENT: no epistaxis, Moist mucosa. LUNGS: bilateral breath sounds, with no added sounds. CARDIAC: REGULAR. no rubs, no murmur ABDOMEN: soft, non-tender. BS+. upper midline laparotomy scar intact. EXTREMITIES: No edema, Good capillary refill. NEURO: Insight GOOD. No invol movements MUSCULOSKELETAL: No acute inflammation Plan of care discussed with: Provider, RN, Patient. Patient Vitals for the past 24 hrs: BP Temp Temp src Pulse Resp SpO2 01/21/25 0818 139/86 36.5 ?C (97.7 ?F) Oral 86 19 96 % 01/20/25 2006 144/85 36.8 ?C (98.2 ?F) Oral 79 14 96 % 01/20/25 1456 128/82 36.6 ?C (97.9 ?F) Oral 79 19 97 % Body mass index is 27.02 kg/m?. Intake/Output Summary (Last 24 hours) at 01/21/2025 0659 Last data filed at 01/20/2025 1728 Gross per 24 hour Intake -- Output 800 ml Net -800 ml Current Facility-Administered Medications Medication Dose Route Frequency NaCl 0.9% iv flush bag 20 mL INTRAVENOUS PRN docusate sodium 100 mg cap(s) (COLACE) 100 mg ORAL BID PRN acetaminophen 650 mg tab(s) (TYLENOL) 650 mg ORAL q 6 H PRN heparin 5,000 Units injection 5,000 Units SUBCUTANEOUS q 12 H prochlorperazine 5 mg injection (COMPAZINE) 5 mg INTRAVENOUS q 6 H PRN levothyroxine 88 mcg tab(s) (SYNTHROID) 88 mcg ORAL BEFORE BREAKFAST DAILY melatonin 6 mg tab(s) 6 mg ORAL AT BEDTIME PRN psyllium 1 packet (METAMUCIL) 1 packet ORAL BID loperamide 2 mg cap(s) (IMODIUM) 2 mg ORAL TID PRN promethazine 25 mg tab(s) (PHENERGAN) 25 mg ORAL NOW potassium chloride 40 mEq oral powder (KLOR-CON) 40 mEq ORAL ONCE ondansetron (PF) 4 mg injection (ZOFRAN) 4 mg INTRAVENOUS q 6 H PRN NaCl 0.9% iv infusion 75 mL/hr INTRAVENOUS CONTINUOUS DATA: Diagnostic tests reviewed for today's visit: Most recent labs Recent Labs 01/21/25 0550 01/20/2545801/19/25425 WBC 10.83 8.25 5.01 HB 16.0* 13.6 12.6 HCT 46.6* 40.9 38.1 PLT 288 228 228 NA 139 138 140 K 3.2* 4.1 3.8 CHLOR 91* 103 103 CO2 24 21* 26 BUN 29* 12 15 CREAT 1.67* 0.84 1.05* GLUC 123* 100* 99 CA 9.7 9.2 8.7 MG 1.8 1.8 1.9 Recent Labs 01/21/25 0550 01/20/2545801/19/25425 TPROT 8.3* 6.9 6.2* ALB 4.8 4.2 3.7* ALT 12 11 9 AST 16 17 15 ALKPHOS 125* 95 84 TBILI 0.6 0.5 0.6 SIGNATURE: Theresa Matthews MD PATIENT NAME: Bony Huang DATE: 01/21/2025 TIME: 9:26 AM [facility] 01-20-2025 Note HNO ID: [id number] Author: THERESA MATTHEWS MD Service: General Internal Medicine Author Type: Physician Type: Progress Notes Filed: 01/20/2025 20:55 Note Text: PROGRESS NOTE - INTERNAL MEDICINE PATIENT NAME: Bony Huang SERVICE DATE: 01/20/2025 ADMITTING PHYSICIAN: Theresa Matthews MD ASSESSMENT AND PLAN Assessment AND Plan Nausea vomiting and diarrhea Present on Admission: Yes No evid of acute infection. Probably secondary to IBS-constipation. GI input noted. Acquired hypothyroidism Present on Admission: Yes Cont synthroid Malnutrition of mild degree (HCC) Present on Admission: Yes Gastroparesis Present on Admission: Yes History of gastritis Present on Admission: Yes +NM GES 10/2018 ALICIA (acute kidney injury) Present on Admission: Yes Resolved with hydration. Overweight Present on Admission: Yes Hiatal hernia without gangrene and obstruction Present on Admission: Yes GERD (gastroesophageal reflux disease) Present on Admission: Yes On PPI at home. History of malignant carcinoid tumor of small intestine Present on Admission: Yes Irritable bowel syndrome with constipation Present on Admission: Status not on file PLAN: S/p IV fluids with good progress with renal function. Monitor renal func and hydration off ivf. Advance diet, in coordination with GI recommendation. Supportive care with antiemetics PPI po as at home. Bowel regimen, per GI recommendation. Continue levothyroxine. DVT prophylaxis DC home ?fatimah INTERVAL HISTORY OF PRESENT ILLNESS: +emesis AND diarrhea overnight and today. No chest pain/sob. Oral intake Poor. No fever/chills. acute events from last 24 hrs reviewed. Pertinent ROS: No abdominal pain / No Bleeding / No rashes Discussed with nursing and case management team and the specialists involved in this patient's care. Reviewed the EMR and documentation from other care-givers. OBJECTIVE PHYSICAL EXAM: GENERAL: AAOx3, resting comfortably, cheerful SKIN: Skin turgor normal. HEENT: no epistaxis, Moist mucosa. LUNGS: bilateral breath sounds, with no added sounds. CARDIAC: REGULAR. no rubs, no murmur ABDOMEN: soft, non-tender. BS+. upper midline laparotomy scar intact. EXTREMITIES: No edema, Good capillary refill. NEURO: Insight GOOD. No invol movements MUSCULOSKELETAL: No acute inflammation Plan of care discussed with: Provider, RN, Patient. Patient Vitals for the past 24 hrs: BP Temp Temp src Pulse Resp SpO2 01/20/25 0754 140/71 36.6 ?C (97.9 ?F) Oral 68 19 93 % 01/20/25 0511 149/86 36.3 ?C (97.3 ?F) Oral 61 16 96 % 01/20/25 0046 136/91 36.7 ?C (98.1 ?F) Oral 68 14 97 % 01/19/252032 158/76 -- -- (!) 59 -- -- 01/19/252030 172/82 36.5 ?C (97.7 ?F) Oral (!) 59 18 94 % 01/19/25 1937 156/88 36.8 ?C (98.3 ?F) Oral 68 16 96 % 01/19/25 1527 157/93 37.1 ?C (98.8 ?F) Oral 64 14 97 % Body mass index is 27.02 kg/m?. Intake/Output Summary (Last 24 hours) at 01/20/2025 0659 Last data filed at 01/20/2025 0511 Gross per 24 hour Intake 720 ml Output 2 ml Net 718 ml Current Facility-Administered Medications Medication Dose Route Frequency NaCl 0.9% iv flush bag 20 mL INTRAVENOUS PRN docusate sodium 100 mg cap(s) (COLACE) 100 mg ORAL BID PRN acetaminophen 650 mg tab(s) (TYLENOL) 650 mg ORAL q 6 H PRN heparin 5,000 Units injection 5,000 Units SUBCUTANEOUS q 12 H NaCl 0.9% iv infusion 75 mL/hr INTRAVENOUS CONTINUOUS prochlorperazine 5 mg injection (COMPAZINE) 5 mg INTRAVENOUS q 6 H PRN levothyroxine 88 mcg tab(s) (SYNTHROID) 88 mcg ORAL BEFORE BREAKFAST DAILY melatonin 6 mg tab(s) 6 mg ORAL AT BEDTIME PRN polyethylene glycol 3350 17 g packet 17 g ORAL BID psyllium 1 packet (METAMUCIL) 1 packet ORAL BID DATA: Diagnostic tests reviewed for today's visit: Most recent labs Recent Labs 01/20/2545801/19/2542501/18/25 1437 WBC 8.25 5.01 9.29 HB 13.6 12.6 13.0 HCT 40.9 38.1 37.5 PLT 228 228 241 NA 138 140 141 K 4.1 3.8 3.6* CHLOR 103 103 103 CO2 21* 26 23 BUN 12 15 19 CREAT 0.84 1.05* 1.46* GLUC 100* 99 93 CA 9.2 8.7 8.5 MG 1.8 1.9 1.8 Recent Labs 01/20/2545801/19/2542501/18/25 1437 TPROT 6.9 6.2* 6.6 ALB 4.2 3.7* 4.0 ALT 11 9 10 AST 17 15 14 ALKPHOS 95 84 93 TBILI 0.5 0.6 0.5 SIGNATURE: Theresa Matthews MD PATIENT NAME: Bony Huang DATE: 01/20/2025 TIME: 8:39 AM [facility] 01-19-2025 Note HNO ID: [id number] Author: LUCILA PARIKH RN Service: Care Management Author Type: Registered Nurse Type: Care Mgt Initial Assessment Filed: 01/19/2025 09:48 Note Text: CARE MANAGEMENT: ASSESSMENT AND DISCHARGE PLAN SERVICE DATE: January 19, 2025 SERVICE TIME: 9:43 AM PCP: Cheikh Pinto MD Primary Contact: Extended Emergency Contact Information Primary Emergency Contact: FREDA HUANG Mobile Relation: Son Secondary Emergency Contact: Dana Huang Address: [address] [place] [address] Mobile Relation: Spouse Admission Status: Inpatient [facility] Discharge Planning requested by: Per Department Practice Potential Transition Plans Home Advance Directives Current Advance Directive: None Rigger Attempted to Assist with AD Completion: Yes Action: Education Provided Current Living Arrangements and Support Lives with: Spouse/significant other Type of Residence: Private Residence (House) Does the patient have to climb stairs at home?: Yes, stairs outside the home, stairs within the home Support: Family members, Friends/neighbors, Spouse/significant other How do you manage to accomplish the following: Independent: Ambulation, Bathe/Shower, Dress, Meals/Meal Prep, Going to the bathroom, Medication Management, Transportation to appointments/community Current Services/Equipment Current Post-Acute Service(s): None Discharge Planning Patient Goal(s): Independent living, Be able to go home, General wellness [place] of Choice Explained: [place] of Choice Given: No Reason Not Given: No placements necessary Are you interested in bedside delivery of your medications? Discharge Planning Participant(s): Patient, Spouse/significant other Patient/Family Comments: Caregiver Assessment: Caregiver is ready, willing and able to meet the patient's needs as recommended by the inter-professional team: No Caregiver needed Transport at Discharge: Transportation Arrangements: Car Destination: home Needs Prior to Discharge: Needs Prior to Discharge: To Be Determined Post-Acute Discharge Plan: Pt admitted from ED for N/V/D. GI on consult. Pts at bedside. Pt lives at home w . Independent all adls, no device. No home based skilled services. 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 Anticipating home dc. Pts will transport home SIGNATURE: Lucila Parikh RN PATIENT NAME: Bony Huang DATE: January 19, 2025 TIME: 9:43 AM [facility] 01-19-2025 Note HNO ID: [id number] Author: THERESA MATTHEWS MD Service: General Internal Medicine Author Type: Physician Type: Progress Notes Filed: 01/20/2025 01:23 Note Text: PROGRESS NOTE - INTERNAL MEDICINE PATIENT NAME: Bony Huang SERVICE DATE: 01/19/2025 ADMITTING PHYSICIAN: Theresa Matthews MD ASSESSMENT AND PLAN Assessment AND Plan Nausea vomiting and diarrhea Present on Admission: Yes No evid of acute infection. Probably secondary to constipation. GI input noted. Acquired hypothyroidism Present on Admission: Yes Cont synthroid Malnutrition of mild degree (HCC) Present on Admission: Yes Gastroparesis Present on Admission: Yes History of gastritis Present on Admission: Yes +NM GES 10/2018 ALICIA (acute kidney injury) Present on Admission: Yes Resolved with hydration. Overweight Present on Admission: Yes Hiatal hernia without gangrene and obstruction Present on Admission: Yes GERD (gastroesophageal reflux disease) Present on Admission: Yes On PPI at home. History of malignant carcinoid tumor of small intestine Present on Admission: Yes PLAN: S/p IV fluids with good progress with renal function. Advance diet, in coordination with GI recommendation. Supportive care with antiemetics PPI po as at home. Bowel regimen, per GI recommendation. Continue levothyroxine. DVT prophylaxis DC plans pending GI recommendation INTERVAL HISTORY OF PRESENT ILLNESS: No new emesis or diarrhea since admission. No chest pain/sob. No n/v/d. Oral intake good with clear liq. Feeling better. No fever/chills. acute events from last 24 hrs reviewed. Pertinent ROS: No abdominal pain / No Bleeding / No rashes Discussed with nursing and case management team and the specialists involved in this patient's care. Reviewed the EMR and documentation from other care-givers. OBJECTIVE PHYSICAL EXAM: GENERAL: AAOx3, resting comfortably, cheerful SKIN: Skin turgor normal. HEENT: no epistaxis, Moist mucosa. LUNGS: bilateral breath sounds, with no added sounds. CARDIAC: REGULAR. no rubs, no murmur ABDOMEN: soft, non-tender. BS+. upper midline laparotomy scar intact. EXTREMITIES: No edema, Good capillary refill. NEURO: Insight GOOD. No invol movements MUSCULOSKELETAL: No acute inflammation Plan of care discussed with: Provider, RN, Patient and Family/Significant Other: spouse. Patient Vitals for the past 24 hrs: BP Temp Temp src Pulse Resp SpO2 Height Weight 01/19/25 0803 154/75 36.6 ?C (97.9 ?F) Oral (!) 58 18 97 % -- -- 01/19/25 0333 131/60 36.7 ?C (98.1 ?F) Oral 60 16 97 % -- -- 01/18/25 2337 121/58 36.6 ?C (97.9 ?F) Oral 62 14 95 % -- -- 01/18/252005 116/61 36.8 ?C (98.2 ?F) Oral 61 16 93 % -- -- 01/18/25 1700 144/76 36.6 ?C (97.9 ?F) Oral 69 19 -- -- -- 01/18/25 1546 -- -- -- -- -- -- -- 67 kg (147 lb 11.3 oz) 01/18/25 1339 -- -- -- -- -- -- 157.5 cm (5' 2) -- 01/18/25 1256 142/93 36.4 ?C (97.6 ?F) Oral 68 18 99 % -- -- Body mass index is 27.02 kg/m?. Intake/Output Summary (Last 24 hours) at 01/19/2025 0659 Last data filed at 01/18/2025 1658 Gross per 24 hour Intake 300 ml Output -- Net 300 ml Current Facility-Administered Medications Medication Dose Route Frequency NaCl 0.9% iv flush bag 20 mL INTRAVENOUS PRN docusate sodium 100 mg cap(s) (COLACE) 100 mg ORAL BID PRN acetaminophen 650 mg tab(s) (TYLENOL) 650 mg ORAL q 6 H PRN heparin 5,000 Units injection 5,000 Units SUBCUTANEOUS q 12 H NaCl 0.9% iv infusion 75 mL/hr INTRAVENOUS CONTINUOUS prochlorperazine 5 mg injection (COMPAZINE) 5 mg INTRAVENOUS q 6 H PRN levothyroxine 88 mcg tab(s) (SYNTHROID) 88 mcg ORAL BEFORE BREAKFAST DAILY melatonin 6 mg tab(s) 6 mg ORAL AT BEDTIME PRN DATA: Diagnostic tests reviewed for today's visit: Most recent labs Recent Labs 01/19/25 0426 01/18/25 1437 WBC 5.01 9.29 HB 12.6 13.0 HCT 38.1 37.5 PLT 228 241 NA 140 141 K 3.8 3.6* CHLOR 103 103 CO2 26 23 BUN 15 19 CREAT 1.05* 1.46* GLUC 99 93 CA 8.7 8.5 MG 1.9 1.8 Recent Labs 01/19/25 0426 01/18/25 1437 TPROT 6.2* 6.6 ALB 3.7* 4.0 ALT 9 10 AST 15 14 ALKPHOS 84 93 TBILI 0.6 0.5 SIGNATURE: Theresa Matthews MD PATIENT NAME: Bony Huang DATE: 01/19/2025 TIME: 9:37 AM [facility] 12-29-2024 Note HNO ID: [id number] Author: BRENT CANTU, DO Service: ? Author Type: Physician Type: Progress Notes Filed: 12/29/2024 13:16 Note Text: FOLLOW UP VISIT CHIEF COMPLAINT Patient presents with: Recheck Ms. Huang is here today for follow-up of: Gastroparesis constipation. HPI: The patient is a 74-year-old female presenting with episodic postprandial pain, emesis, and intermittent diarrhea. For the past year, she has experienced episodes of severe pain localized to the left upper quadrant after eating non-pureed foods or swallowing whole pills. She reports that food or pills seem to ?stick? in this area, causing intense pain until she vomits. Emesis consists of large amounts of phlegm, without food particles. The episodes are unpredictable, not consistently triggered by specific foods, and do not occur with every meal. She is able to tolerate pureed foods, such as blended soups, without difficulty. After an episode, she can sometimes resume eating the same food 15-20 minutes later without recurrence of symptoms. She denies any difficulty initiating swallowing. She also reports approximately 20 episodes of diarrhea over the past year, often following these postprandial events. Diarrhea is described as multiple loose stools (e.g., 6 episodes in one morning), sometimes followed by a day or more without bowel movements. She takes Motegrity nightly for chronic constipation, but withholds it on days when she has diarrhea, which she feels helps prevent worsening symptoms. She notes that if she tries to ?fight through? an episode and keep food down, she is more likely to develop diarrhea and require emergency care. She has a remote history of carcinoid tumor resection approximately 30 years ago. She underwent an EGD in [address] Overton, which identified a small hiatal hernia. She is unable to swallow whole pills and must crush all medications and supplements. She denies any new surgeries since her last visit. Diagnostics: (No Date) EGD: Medium-sized hiatal hernia noted, described as not clinically significant. Current Outpatient Medications Medication Sig Dispense Refill prucalopride 2 mg tablet (MOTEGRITY) Take 2 mg by mouth once daily. diphenhydramine HCl (BENADRYL ALLERGY PO) Take by mouth. prucalopride (MOTEGRITY) 2 mg tab tablet Take 2 mg by mouth once daily. potassium chloride (K-TAB) 10 mEq tablet Take 10 mEq by mouth two times a day. Cholecalciferol, Vitamin D3, (VITAMIN D-3) 50 mcg (2,000 unit) cap Take by mouth. levothyroxine (SYNTHROID) 88 mcg tablet Take 88 mcg by mouth daily before breakfast. B Complex Vitamins capsule Take 1 capsule by mouth daily before breakfast. promethazine (PHENERGAN) 12.5 mg tablet Take 12.5 mg by mouth every 8 hours as needed for nausea/vomiting. pantoprazole DR (PROTONIX) 20 mg tablet Take 20 mg by mouth every evening. 3 cetirizine (ZYRTEC) 10 mg tablet Take 1 tablet by mouth once daily. 0 No current facility-administered medications for this visit. ALLERGIES Allergen Reactions Asa [Aspirin] Other: See Comments nose bleeds Bactrim [Sulfametho* Swelling Sulfa (Sulfonamide * Swelling Lip swelling SOCIAL HISTORY[1] Medical History: No changes since last visit. REVIEW OF SYSTEMS: GENERAL: weight stable, no fevers. CARDIOVASCULAR: No chest pain, no edema RESPIRATORY: No dyspnea : neg CHIP TUNER: neg The remainder of the review of systems are negative. Reviewed with patient during visit today. PHYSICAL EXAMINATION: BP 143/83 Pulse 70 Ht 5' 2 (1.58m) Wt 152 lb 1.9 oz (69.0kg) BMI 27.82 kg/(m2). GENERAL APPEARANCE: Well developed and well nourished. SKIN: Skin color, texture, turgor normal. No rashes or lesions. EYES: Conjunctiva normal without icterus. OROPHARYNX: lips, mucosa, and tongue normal, teeth and gums normal NECK: Supple, full range of motion, no lymphadenopathy, normal thyroid, no carotid bruits and no JVD LUNGS: Normal breath sounds, Clear to auscultation, No wheezes, No crackles. HEART:Normal PMI, Regular rate and rhythm, Normal heart sounds, S1 and S2 and No murmurs. NEURO: Alert and oriented in no acute distress. ABDOMEN: Normal bowel sounds, abdomen flat with no distention, Soft, non-tender, no hepatomegaly. no palpable masses, no abdominal bruits, no rebound and no rigidity. EXTREMITIES:Extremities normal, No deformities, No skin discoloration, No edema . ASSESSMENT AND PLAN 1. Epigastric pain (R10.13) 2. Hiatal hernia (K44.9) Episodic postprandial pain and regurgitation with emesis of phlegm, associated with a medium-sized hiatal hernia seen on prior EGD; symptoms are not consistent with gastroparesis. - Ordered upper GI series with small bowel follow-through to assess anatomy and transit. - Provided rationale for imaging, explaining that it will offer a better view of anatomy and flow compared to endoscopy. Brent Cantu, 12/29/2024 Recording using ambient A (more content not included)... [facility] 12-29-2024 History of Present illness Narrative FOLLOW UP VISIT CHIEF COMPLAINT Patient presents with: Recheck Ms. Huang is here today for follow-up of: Gastroparesis constipation. HPI: The patient is a 74-year-old female presenting with episodic postprandial pain, emesis, and intermittent diarrhea. For the past year, she has experienced episodes of severe pain localized to the left upper quadrant after eating non-pureed foods or swallowing whole pills. She reports that food or pills seem to stick in this area, causing intense pain until she vomits. Emesis consists of large amounts of phlegm, without food particles. The episodes are unpredictable, not consistently triggered by specific foods, and do not occur with every meal. She is able to tolerate pureed foods, such as blended soups, without difficulty. After an episode, she can sometimes resume eating the same food 15-20 minutes later without recurrence of symptoms. She denies any difficulty initiating swallowing. She also reports approximately 20 episodes of diarrhea over the past year, often following these postprandial events. Diarrhea is described as multiple loose stools (e.g., 6 episodes in one morning), sometimes followed by a day or more without bowel movements. She takes Motegrity nightly for chronic constipation, but withholds it on days when she has diarrhea, which she feels helps prevent worsening symptoms. She notes that if she tries to fight through an episode and keep food down, she is more likely to develop diarrhea and require emergency care. She has a remote history of carcinoid tumor resection approximately 30 years ago. She underwent an EGD in [address] Overton, which identified a small hiatal hernia. She is unable to swallow whole pills and must crush all medications and supplements. She denies any new surgeries since her last visit. Diagnostics: (No Date) EGD: Medium-sized hiatal hernia noted, described as not clinically significant. Current Outpatient Medications Medication Sig Dispense Refill prucalopride 2 mg tablet (MOTEGRITY) Take 2 mg by mouth once daily. diphenhydramine HCl (BENADRYL ALLERGY PO) Take by mouth. prucalopride (MOTEGRITY) 2 mg tab tablet Take 2 mg by mouth once daily. potassium chloride (K-TAB) 10 mEq tablet Take 10 mEq by mouth two times a day. Cholecalciferol, Vitamin D3, (VITAMIN D-3) 50 mcg (2,000 unit) cap Take by mouth. levothyroxine (SYNTHROID) 88 mcg tablet Take 88 mcg by mouth daily before breakfast. B Complex Vitamins capsule Take 1 capsule by mouth daily before breakfast. promethazine (PHENERGAN) 12.5 mg tablet Take 12.5 mg by mouth every 8 hours as needed for nausea/vomiting. pantoprazole DR (PROTONIX) 20 mg tablet Take 20 mg by mouth every evening. 3 cetirizine (ZYRTEC) 10 mg tablet Take 1 tablet by mouth once daily. 0 No current facility-administered medications for this visit. ALLERGIES Allergen Reactions Asa [Aspirin] Other: See Comments nose bleeds Bactrim [Sulfametho* Swelling Sulfa (Sulfonamide * Swelling Lip swelling SOCIAL HISTORY[1] Medical History: No changes since last visit. REVIEW OF SYSTEMS: GENERAL: weight stable, no fevers. CARDIOVASCULAR: No chest pain, no edema RESPIRATORY: No dyspnea : neg CHIP TUNER: neg The remainder of the review of systems are negative. Reviewed with patient during visit today. PHYSICAL EXAMINATION: BP 143/83 Pulse 70 Ht 5' 2 (1.58m) Wt 152 lb 1.9 oz (69.0kg) BMI 27.82 kg/(m^2). GENERAL APPEARANCE: Well developed and well nourished. SKIN: Skin color, texture, turgor normal. No rashes or lesions. EYES: Conjunctiva normal without icterus. OROPHARYNX: lips, mucosa, and tongue normal, teeth and gums normal NECK: Supple, full range of motion, no lymphadenopathy, normal thyroid, no carotid bruits and no JVD LUNGS: Normal breath sounds, Clear to auscultation, No wheezes, No crackles. HEART:Normal PMI, Regular rate and rhythm, Normal heart sounds, S1 and S2 and No murmurs. NEURO: Alert and oriented in no acute distress. ABDOMEN: Normal bowel sounds, abdomen flat with no distention, Soft, non-tender, no hepatomegaly. no palpable masses, no abdominal bruits, no rebound and no rigidity. EXTREMITIES:Extremities normal, No deformities, No skin discoloration, No edema . ASSESSMENT AND PLAN 1. Epigastric pain (R10.13) 2. Hiatal hernia (K44.9) Episodic postprandial pain and regurgitation with emesis of phlegm, associated with a medium-sized hiatal hernia seen on prior EGD; symptoms are not consistent with gastroparesis. - Ordered upper GI series with small bowel follow-through to assess anatomy and transit. - Provided rationale for imaging, explaining that it will offer a better view of anatomy and flow compared to endoscopy. Brent Cantu DO 12/29/2024 Recording using ambient Social Intelligence software for draft documentation of the visit was discussed with the patient/authorized field sales representative; all questions welcomed and answered. 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 December 21, 025 10:51am Hypothyroidism (acquired) chronic December 21 025 10:51am Hypothyroidism acute February 032024 9:04am Gastroparesis chronic January 9:04am 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 Cantu His phone is [phone] [facility] Tele[facility] encounter Note * Telephone Encounter - Joann Orourke - 10/12/2024 9:59 AM EDT calling requesting a follow up for his with Dr. Cantu His phone is [phone] [facility] Work Phone: [phone]) 343-323111-05-2024 [facility] Medical Records Department [facility] [place] [address] Discharge Summary 02/18/24 1426 MR#: [id number] Acct: [id number] Name: BONY HUANG Rep #: [id number] : [id number] 74 From: Cathleen Abdalla MD PCP: Dr. Cheikh Pinto MD Status:ADM NANCY Location: [place] [address] Providers Date of Admission: 02/17/24 Date of Discharge: 02/18/24 Primary Care Physician: Dr. Cheikh Pinto MD Reason For Visit: ALICIA, GASTROPARESIS FLARE Diagnosis Discharge Diagnosis (1) Nausea vomiting: Status: Acute Code(s): R11.2 - Nausea with vomiting, unspecified Medications at Discharge Home Medications melatonin 5 mg capsule 5 mg PO DAILY 10/25/22 levothyroxine 88 mcg tablet 88 mcg PO DAILY #90 tabs 07/05/23 prucalopride 2 mg tablet (Motegrity) 2 mg PO DAILY #90 tabs 01/09/24 cholecalciferol (vitamin D3) 25 mcg (1,000 unit) capsule 25 mcg PO QDAY 01/23/24 pantoprazole 20 mg tablet,delayed release 20 mg PO 4XD 02/17/24 potassium iodide 65 mg tablet 130 mg PO DAILY 02/17/24 Hospital Course Operations None Procedures None Summary of Care Provided Minutes Spent on Discharge: 55 Hospital Course: Patient is a 74 y/o femalw with a PMH as outlined including carcinoid tumor with resection and gastroparesis who was admitted via the ED on 02/17/2024 with a complaint of diarrhea as well as nausea and vomiting which had been going on for several days and not been worsening. He said the diarrhea had resolved at home before she came in but the nausea and vomiting had worsened. She did have a history of gastroparesis and says she had occasional flareups of such nausea and vomiting. On admission she was found to be in ALICIA with creatinine of 2.37. She was hydrated with IV fluids and given IV Zofran. Her symptoms improved and she felt much better. Her creatinine also trended down to 1.26. She was able to tolerate a diet and did much better. She was discharged home at her request on 02/18/2024. She was discharged on 02/18/2024 and is to follow-up with her primary care doctor within 1 week. She is however to follow with the PCP in 2 to 3 days for repeat BMP to follow-up on kidney function. She is to continue Motegrity (prucalopride) for the gastroparesis. Patient seen and examined prior to discharge. She felt much better and had no complaints. She had an uneventful night. Review of systems otherwise negative. Labs and vitals reviewed. Home medication reviewed and reconciled. Physical Exam Const alert, oriented x3 and no apparent distress General Appearance: cooperative and comfortable Orientation / Consciousness: awake Exam Limitations: no limitations HEENT normocephalic, head/scalp atraumatic, hearing grossly normal bilaterally, moist oral mucous membranes and oropharynx normal Mouth: oral and palatal mucosa normal Eyes PERRL, EOMs intact bilaterally and conjunctivae normal Neck no lymphadenopathy and supple Resp normal respiratory effort, no retractions, no use of accessory muscles and clear to auscultation bilaterally Cardio regular rate, regular rhythm, S1 normal heart sound, S2 normal heart sound and no murmurs GI normal to inspection, nondistended, normoactive bowel sounds, soft to palpation and non-tender Extremity normal to inspection, full ROM and no clubbing, cyanosis or edema Skin no rashes or lesions noted Neuro oriented x3, CN's II-XII intact bilaterally, moves all extremities and no focal motor deficits Sensorium / Orientation: awake Motor Exam: strength 5/5 throughout Psych affect normal Weight / BMI Weight Weight: 149 lb 14.629 oz Body Mass Index (BMI) 26.5 ABG / Lab / Microbiology Data 02/18/24 06:40 02/18/24 06:40 Laboratory: Laboratory Results - last 24 hr 02/17/24 14:15: Sodium 138, Potassium 3.3 L, Chloride 94 L, Carbon Dioxide 32.0, Anion Gap 12, BUN 22 H, Creatinine 2.37 H, Estim Creat Clear Calc 19.45, Est GFR (MDRD) Af Amer 26 L, Est GFR (MDRD) Non-Af 21 L, BUN/Creatinine Ratio 9.3 L, Glucose 141 H, Calcium 10.6 H, Magnesium 2.1, Total Bilirubin 0.60, AST 13 L, ALT 22, Alkaline Phosphatase 117, Total Protein 9.6 H, Albumin 4.9, G lobulin 4.7 H, Albumin/Globulin Ratio 1.0 02/17/24 16:10: Urine Color Louise, Urine Clarity Cloudy, Urine pH 6.0, Ur Specific Hampton 1.025, U rine Protein 100 H, Urine Glucose (UA) Normal, Urine Ketones 5 H, Urine Occult Blood 10 H, Urine Nitrite Positive H, Urine Bilirubin 3 H, Urine Urobilinogen 1 H, Ur Leukocyte Esterase 100 H, Urine RBC 0 SEEN, Urine WBC 10-25 SEEN, Ur Squamous Epith Cells 0-5 SEEN, Ur Transition Epith Cell 0-5 SEEN, Ur Renal Epithelial Cell 0-5 SEEN, Calcium Oxalate Crystal 1+, Urine Bacteria 1+, Hyaline Casts 50-100 SEEN, Fine Granular Casts 0-5 SEEN, WBC Casts 0-5 SEEN, Urine Mucus 3+ 02/18/24 06:40: WBC 6.0, RBC 4.49, Hgb 12.9, Hct 38.7, MCV 86.2, MCH 28.7, MCHC 33.3, RDW Std (morecontent not included)...[facility]07-03-2024 Attending History and physical note* Bina Overton MD - 10/16/2023 12:15 PM EDT UPDATED HISTORY AND PHYSICAL EXAMINATION SERVICE DATE: 10/16/2023 SERVICE TIME: 1 1:26 PHYSICAL EXAM MUST BE COMPLETED ON ADMISSION The History and Physical (completed in the past 30 days) has been reviewed and the patient has beenexamined. The contents accurately reflect the patient's condition with the following additions or revisions since the H&P was completed. Examination indicates no changes. This H&P can be found in the Electronic Medical Record . SIGNATURE: Bina Overton MD PATIENT NAME: Bony Huang DATE: October 16, 2023 TIME: 11:26 AM Source Note - Bina Overton MD - 10/16/2023 12:15 PM EDT HISTORY AND PHYSICAL Bony Huang 1950 REFERRING PHYSICIAN: No ref. provider found CHIEF COMPLAINT: No chief complaint on file. HPI: The patient is a 73 year old female referred for endoscopy. Bony notes dysphagia. She also complains of epigastric fullness. She has been diagnosed with gastroparesis and chronic constipation, followed by GI medicine at [facility] for years. She complains of swallowing difficulties. She had previous EGD in 2019. She also notes chronic intermittent emesis and diarrhea. This occurs a few times a week. She had history of carcinoid surgery > 20 years ago. She denies blood in emesis; denies blood in stools. 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 [facility] TOTAL ABDOM HYSTERECTOMY CURRENT MEDICATIONS Current Outpatient Medications Medication Sig [place]-3 Fatty Acids 500 mg cap Take 500 mg by mouth once daily. Cholecalciferol, Vitamin D3, (VITAMIN D-3) 50 mcg (2,000 unit) cap Take by mouth. levothyroxine (SYNTHROID) 88 mcg tablet Take 88 mcg by mouth daily before breakfast. multivit/iron/FA/K/herb no.244 (ALIVE WOMEN'S ENERGY ORAL) Take 2 capsules by mouth once daily. B Complex Vitamins capsule Take 1 capsule by mouth daily before breakfast. promethazine (PHENERGAN) 12.5 mg tablet Take 12.5 mg by mouth every 8 hours as needed for Nausea/Vomiting. ciprofloxacin HCl (CIPRO) 500 mg tablet Take 250 mg by mouth twice daily. levothyroxine (SYNTHROID) 75 mcg tablet Take 1 tablet by mouth DAILY (6 AM). (Patient taking differently: Take 100 mcg by mouth once daily. ) pantoprazole DR (PROTONIX) 20 mg tablet Take 20 mg by mouth every evening. TRANSDERM-SCOP 1.5 MG TRANSDERMAL PATCH (1 MG OVER 3 DAYS) D-MANNOSE ORAL Take 1,000 mg by mouth twice daily. Multivitamins-Iron (DAILY MULTI-VITAMINS/IRON) tab Take 1 tablet by mouth twice daily. oxymetazoline (AFRIN, OXYMETAZOLINE,) 0.05 % nasal spray Use 2 Sprays in the nose as needed. cetirizine (ZYRTEC) 10 mg tablet Take 1 tablet by mouth once daily. lactobacillus rhamnosus R0011 (PROBIOTIC DIGESTIVE CARE) 20 billion cell cap Take 1 Can by mouth once daily. (Patient taking differently: Take 1 capsule by mouth daily with breakfast.) No current facility-administered medications for this visit. ALLERGIES: Asa [Aspirin], Bactrim [Sulfamethoxazole], and Sulfa (Sulfonamide Antibiotics) PERSONAL HISTORY: SOCIAL HISTORY Social History Tobacco Use Smoking status: Never Smokeless tobacco: Never Substance Use Topics Alcohol use: Yes Comment: occasional Drug use: Never FAMILY HISTORY FAMILY HISTORY Problem Relation Age of Onset Thyroid Mother surgical hypothyroidism Lipids Mother Breast Cancer Mother macular degeneration other (atrial fibrillation) Mother Coronary Artery Disease Father premature with [place] at around 27yo Colon Cancer Sister other (Fibromyalgia) Sister other (Other) Grandchild Chavis syndrome The review of systems data was entered by the nurse and reviewed by nm Nursing Notes: Rosemarie Hope RN 09/16/2023 8:40 AM Signed REVIEW OF SYSTEMS: General: The patient denies fatigue, denies weight loss, denies weight gain, denies feeling hot, and denies feelings of cold. Eyes: The patient denies glaucoma, denies eye injury/surgery, does not wear glasses or contacts. Ear/Nose/Throat: The patient denies allergies, denies hayfever, denies ear infections, and denies bloody noses. Cardiovascular: The patient denies chest pain, denies heart disease, denies high blood pressure,denies cardiac stent, denies prior heart attack, denies irregular heart beat, denies high cholesterol, denies poor circulation, denies heart failure, other cardiac issues, denies claudication, denies cold feet, denies peripheral arterial stent. Respiratory: The patient denies tuberculosis, denies pneumonia, denies frequent cough, denies pulmonary embolism, denies shortness of breath, and denies coughing up blood. Gastrointestinal: The patient NOTES difficulty swallowing, NOTES acid reflux, denies ulcers, NOTES vomiting, denies jaundice/hepatitis, denies gallbladder problems, denies black or tarry stools, denies hemorrhoids, denies bleeding from rectum, denies diverticulitis, NOTES constipation, NOTES diarrhea, denies loss of stool control, and denies hernias. Kidney/Bladder: The patient denies kidney stones, denies urine infections, and denies bloody urine. Skin: The patient denies a history of skin cancer, denies bleeding/changing moles, and denies a history of skin rash. Neurologic: The patient denies a history of epilepsy/convulsions, denies headaches, denies head/spinal injuries, and denies stroke/TIA. Psychiatric: The patient denies psychiatric medications, denies depression, and denies voices, NOTES substance abuse. Endocrine: The patient denies thyroid disorders, denies diabetes, and denies hormonal problems. Hematologic: The patient denies a history of bruising, denies bleeding, and denies anemia, denies blood clots. Infections: The patient denies a history of measles and mumps, denies rheumatic fever, and denies sexually transmitted diseases. Musculoskeletal: The patient denies back pain/injury, denies back problems, denies sciatica, deniesknee/foot trouble, denies arthritis, or denies gout. When was patient's last Mammogram screening? 03/30/16 Last Colonoscopy: 11/07/18 Rosemarie Hope RN PHYSICAL EXAMINATION: General: The patient is 73 year old female, well nourished, well hydrated in no acute distress. Thepatient is oriented to time, place, and person. VITALS: There were no vitals taken for this visit. There is no height or weight on file to calculate BMI. Head: Normal cephalic, atraumatic Eyes: pupils are equally round, sclera are clear/anicteric Neck is supple with no tracheal deviation Cardiac: normal heart sounds, regular Respiratory: Normal respiratory excursion and pattern. Abdominal exam: benign Extremities: no clubbing, cyanosis or edema. Neuro: non focal Psych: normal mood IMPRESSION: dysphagia PLAN: I have discussed the above with the patient. I have offered EGD, possible biopsies I have explained the procedure to the patient. I have counseled the patient as to the risks of the procedure, including but not limited to: infection, bleeding, injury to any intrabdominal organs such as liver/spleen, perforation of the GI tract,inability to complete the procedure, complications of anesthesia, etc. - the patient understands. The patient wishes to proceed. I have answered all questions to the patient s satisfaction and the patient has no further questions. Diagnoses: (R13.10) Dysphagia, unspecified type (primary encounter diagnosis) [facility]07-03-2024 History and physical note* Bina Overton MD - 10/16/2023 12:15 PM EDT HISTORY AND PHYSICAL Bony Huang 1950 REFERRING PHYSICIAN: No ref. provider found CHIEF COMPLAINT: No chief complaint on file. HPI: The patient is a 73 year old female referred for endoscopy. Bony notes dysphagia. She also complains of epigastric fullness. She has been diagnosed with gastroparesis and chronic constipation, followed by GI medicine at [facility] for years. She complains of swallowing difficulties. She had previous EGD in 2019. She also notes chronic intermittent emesis and diarrhea. This occurs a few times a week. She had history of carcinoid surgery > 20 years ago. She denies blood in emesis; denies blood in stools. PAST MEDICAL HISTORY PAST MEDICAL HISTORY Diagnosis Date ALICIA (acute kidney injury) (HCC) 11/05/2018 Allergic rhinitis Carcinoid tumor GERD (gastroesophageal reflux disease) has been controlled with PPI Hypothyroid Nausea and vomiting PAST SURGICAL HISTORY PAST SURGICAL HISTORY Procedure Laterality Date DELIVERY ONLY , low transverse x 2 COLONOSCOP W/ OR W/O [facility] SPEC 05/21/2014 Colonoscopy EGD W/O OR W/BRUSH/WASH 05/21/2014 EGD PAST SURGICAL HISTORY OF 2007 carcinoid tumor of duodeum. [facility] TOTAL ABDOM HYSTERECTOMY CURRENT MEDICATIONS Current Outpatient Medications Medication Sig [place]-3 Fatty Acids 500 mg cap Take 500 mg by mouth once daily. Cholecalciferol, Vitamin D3, (VITAMIN D-3) 50 mcg (2,000 unit) cap Take by mouth. levothyroxine (SYNTHROID) 88 mcg tablet Take 88 mcg by mouth daily before breakfast. multivit/iron/FA/K/herb no.244 (ALIVE WOMEN'S ENERGY ORAL) Take 2 capsules by mouth once daily. B Complex Vitamins capsule Take 1 capsule by mouth daily before breakfast. promethazine (PHENERGAN) 12.5 mg tablet Take 12.5 mg by mouth every 8 hours as needed for Nausea/Vomiting. ciprofloxacin HCl (CIPRO) 500 mg tablet Take 250 mg by mouth twice daily. levothyroxine (SYNTHROID) 75 mcg tablet Take 1 tablet by mouth DAILY (6 AM). (Patient taking differently: Take 100 mcg by mouth once daily. ) pantoprazole DR (PROTONIX) 20 mg tablet Take 20 mg by mouth every evening. TRANSDERM-SCOP 1.5 MG TRANSDERMAL PATCH (1 MG OVER 3 DAYS) D-MANNOSE ORAL Take 1,000 mg by mouth twice daily. Multivitamins-Iron (DAILY MULTI-VITAMINS/IRON) tab Take 1 tablet by mouth twice daily. oxymetazoline (AFRIN, OXYMETAZOLINE,) 0.05 % nasal spray Use 2 Sprays in the nose as needed. cetirizine (ZYRTEC) 10 mg tablet Take 1 tablet by mouth once daily. lactobacillus rhamnosus R0011 (PROBIOTIC DIGESTIVE CARE) 20 billion cell cap Take 1 Can by mouth once daily. (Patient taking differently: Take 1 capsule by mouth daily with breakfast.) No current facility-administered medications for this visit. ALLERGIES: Asa [Aspirin], Bactrim [Sulfamethoxazole], and Sulfa (Sulfonamide Antibiotics) PERSONAL HISTORY: SOCIAL HISTORY Social History Tobacco Use Smoking status: Never Smokeless tobacco: Never Substance Use Topics Alcohol use: Yes Comment: occasional Drug use: Never FAMILY HISTORY FAMILY HISTORY Problem Relation Age of Onset Thyroid Mother surgical hypothyroidism Lipids Mother Breast Cancer Mother macular degeneration other (atrial fibrillation) Mother Coronary Artery Disease Father premature with [place] at around 27yo Colon Cancer Sister other (Fibromyalgia) Sister other (Other) Grandchild Chavis syndrome The review of systems data was entered by the nurse and reviewed by nm Nursing Notes: Rosemarie Hope RN 09/16/2023 8:40 AM Signed REVIEW OF SYSTEMS: General: The patient denies fatigue, denies weight loss, denies weight gain, denies feeling hot, and denies feelings of cold. Eyes: The patient denies glaucoma, denies eye injury/surgery, does not wear glasses or contacts. Ear/Nose/Throat: The patient denies allergies, denies hayfever, denies ear infections, and denies bloody noses. Cardiovascular: The patient denies chest pain, denies heart disease, denies high blood pressure,denies cardiac stent, denies prior heart attack, denies irregular heart beat, denies high cholesterol, denies poor circulation, denies heart failure, other cardiac issues, denies claudication, denies cold feet, denies peripheral arterial stent. Respiratory: The patient denies tuberculosis, denies pneumonia, denies frequent cough, denies pulmonary embolism, denies shortness of breath, and denies coughing up blood. Gastrointestinal: The patient NOTES difficulty swallowing, NOTES acid reflux, denies ulcers, NOTES vomiting, denies jaundice/hepatitis, denies gallbladder problems, denies black or tarry stools, denies hemorrhoids, denies bleeding from rectum, denies diverticulitis, NOTES constipation, NOTES diarrhea, denies loss of stool control, and denies hernias. Kidney/Bladder: The patient denies kidney stones, denies urine infections, and denies bloody urine. Skin: The patient denies a history of skin cancer, denies bleeding/changing moles, and denies a history of skin rash. Neurologic: The patient denies a history of epilepsy/convulsions, denies headaches, denies head/spinal injuries, and denies stroke/TIA. Psychiatric: The patient denies psychiatric medications, denies depression, and denies voices, NOTES substance abuse. Endocrine: The patient denies thyroid disorders, denies diabetes, and denies hormonal problems. Hematologic: The patient denies a history of bruising, denies bleeding, and denies anemia, denies blood clots. Infections: The patient denies a history of measles and mumps, denies rheumatic fever, and denies sexually transmitted diseases. Musculoskeletal: The patient denies back pain/injury, denies back problems, denies sciatica, deniesknee/foot trouble, denies arthritis, or denies gout. When was patient's last Mammogram screening? 03/30/16 Last Colonoscopy: 11/07/18 Rosemarie Hope RN PHYSICAL EXAMINATION: General: The patient is 73 year old female, well nourished, well hydrated in no acute distress. Thepatient is oriented to time, place, and person. VITALS: There were no vitals taken for this visit. There is no height or weight on file to calculate BMI. Head: Normal cephalic, atraumatic Eyes: pupils are equally round, sclera are clear/anicteric Neck is supple with no tracheal deviation Cardiac: normal heart sounds, regular Respiratory: Normal respiratory excursion and pattern. Abdominal exam: benign Extremities: no clubbing, cyanosis or edema. Neuro: non focal Psych: normal mood IMPRESSION: dysphagia PLAN: I have discussed the above with the patient. I have offered EGD, possible biopsies I have explained the procedure to the patient. I have counseled the patient as to the risks of the procedure, including but not limited to: infection, bleeding, injury to any intrabdominal organs such as liver/spleen, perforation of the GI tract,inability to complete the procedure, complications of anesthesia, etc. - the patient understands. The patient wishes to proceed. I have answered all questions to the patient s satisfaction and the patient has no further questions. Diagnoses: (R13.10) Dysphagia, unspecified type (primary encounter diagnosis) [facility]07-03-2024 History and physical note* Bina Overton MD - 10/16/2023 12:15 PM EDT UPDATED HISTORY AND PHYSICAL EXAMINATION SERVICE DATE: 10/16/2023 SERVICE TIME: 1:26 PHYSICAL EXAM MUST BE COMPLETED ON ADMISSION The History and Physical (completed in the past 30 days) has been reviewed and the patient has beenexamined. The contents accurately reflect the patient's condition with the following additions or revisions since the H&P was completed. Examination indicates no changes. This H&P can be found in the Electronic Medical Record . SIGNATURE: Bina Overton MD PATIENT NAME: Bony Huang DATE: October 16, 2023 TIME: 11:26 AM Source Note - Bina Overton MD - 10/16/2023 12:15 PM EDT HISTORY AND PHYSICAL Bony Huang 1950 REFERRING PHYSICIAN: No ref. provider found CHIEF COMPLAINT: No chief complaint on file. HPI: The patient is a 73 year old female referred for endoscopy. Bony notes dysphagia. She also complains of epigastric fullness. She has been diagnosed with gastroparesis and chronic constipation, followed by GI medicine at [facility] for years. She complains of swallowing difficulties. She had previous EGD in 2019. She also notes chronic intermittent emesis and diarrhea. This occurs a few times a week. She had history of carcinoid surgery > 20 years ago. She denies blood in emesis; denies blood in stools. 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 [facility] TOTAL ABDOM HYSTERECTOMY CURRENT MEDICATIONS Current Outpatient Medications Medication Sig [place]-3 Fatty Acids 500 mg cap Take 500 mg by mouth once daily. Cholecalciferol, Vitamin D3, (VITAMIN D-3) 50 mcg (2,000 unit) cap Take by mouth. levothyroxine (SYNTHROID) 88 mcg tablet Take 88 mcg by mouth daily before breakfast. multivit/iron/FA/K/herb no.244 (ALIVE WOMEN'S ENERGY ORAL) Take 2 capsules by mouth once daily. B Complex Vitamins capsule Take 1 capsule by mouth daily before breakfast. promethazine (PHENERGAN) 12.5 mg tablet Take 12.5 mg by mouth every 8 hours as needed for Nausea/Vomiting. ciprofloxacin HCl (CIPRO) 500 mg tablet Take 250 mg by mouth twice daily. levothyroxine (SYNTHROID) 75 mcg tablet Take 1 tablet by mouth DAILY (6 AM). (Patient taking differently: Take 100 mcg by mouth once daily. ) pantoprazole DR (PROTONIX) 20 mg tablet Take 20 mg by mouth every evening. TRANSDERM-SCOP 1.5 MG TRANSDERMAL PATCH (1 MG OVER 3 DAYS) D-MANNOSE ORAL Take 1,000 mg by mouth twice daily. Multivitamins-Iron (DAILY MULTI-VITAMINS/IRON) tab Take 1 tablet by mouth twice daily. oxymetazoline (AFRIN, OXYMETAZOLINE,) 0.05 % nasal spray Use 2 Sprays in the nose as needed. cetirizine (ZYRTEC) 10 mg tablet Take 1 tablet by mouth once daily. lactobacillus rhamnosus R0011 (PROBIOTIC DIGESTIVE CARE) 20 billion cell cap Take 1 Can by mouth once daily. (Patient taking differently: Take 1 capsule by mouth daily with breakfast.) No current facility-administered medications for this visit. ALLERGIES: Asa [Aspirin], Bactrim [Sulfamethoxazole], and Sulfa (Sulfonamide Antibiotics) PERSONAL HISTORY: SOCIAL HISTORY Social History Tobacco Use Smoking status: Never Smokeless tobacco: Never Substance Use Topics Alcohol use: Yes Comment: occasional Drug use: Never FAMILY HISTORY FAMILY HISTORY Problem Relation Age of Onset Thyroid Mother surgical hypothyroidism Lipids Mother Breast Cancer Mother macular degeneration other (atrial fibrillation) Mother Coronary Artery Disease Father premature with [place] at around 27yo Colon Cancer Sister other (Fibromyalgia) Sister other (Other) Grandchild Chavis syndrome The review of systems data was entered by the nurse and reviewed by me Nursing Notes: Rosemarie Hope RN 09/16/2023 8:40 AM Signed REVIEW OF SYSTEMS: General: The patient denies fatigue, denies weight loss, denies weight gain, denies feeling hot, and denies feelings of cold. Eyes: The patient denies glaucoma, denies eye injury/surgery, does not wear glasses or contacts. Ear/Nose/Throat: The patient denies allergies, denies hayfever, denies ear infections, and denies bloody noses. Cardiovascular: The patient denies chest pain, denies heart disease, denies high blood pressure,denies cardiac stent, denies prior heart attack, denies irregular heart beat, denies high cholesterol, denies poor circulation, denies heart failure, other cardiac issues, denies claudication, denies cold feet, denies peripheral arterial stent. Respiratory: The patient denies tuberculosis, denies pneumonia, denies frequent cough, denies pulmonary embolism, denies shortness of breath, and denies coughing up blood. Gastrointestinal: The patient NOTES difficulty swallowing, NOTES acid reflux, denies ulcers, NOTES vomiting, denies jaundice/hepatitis, denies gallbladder problems, denies black or tarry stools, denies hemorrhoids, denies bleeding from rectum, denies diverticulitis, NOTES constipation, NOTES diarrhea, denies loss of stool control, and denies hernias. Kidney/Bladder: The patient denies kidney stones, denies urine infections, and denies bloody urine. Skin: The patient denies a history of skin cancer, denies bleeding/changing moles, and denies a history of skin rash. Neurologic: The patient denies a history of epilepsy/convulsions, denies headaches, denies head/spinal injuries, and denies stroke/TIA. Psychiatric: The patient denies psychiatric medications, denies depression, and denies voices, NOTES substance abuse. Endocrine: The patient denies thyroid disorders, denies diabetes, and denies hormonal problems. Hematologic: The patient denies a history of bruising, denies bleeding, and denies anemia, denies blood clots. Infections: The patient denies a history of measles and mumps, denies rheumatic fever, and denies sexually transmitted diseases. Musculoskeletal: The patient denies back pain/injury, denies back problems, denies sciatica, deniesknee/foot trouble, denies arthritis, or denies gout. When was patient's last Mammogram screening? 03/30/16 Last Colonoscopy: 11/07/18 Rosemarie Hope RN PHYSICAL EXAMINATION: General: The patient is 73 year old female, well nourished, well hydrated in no acute distress. Thepatient is oriented to time, place, and person. VITALS: There were no vitals taken for this visit. There is no height or weight on file to calculate BMI. Head: Normal cephalic, atraumatic Eyes: pupils are equally round, sclera are clear/anicteric Neck is supple with no tracheal deviation Cardiac: normal heart sounds, regular Respiratory: Normal respiratory excursion and pattern. Abdominal exam: benign Extremities: no clubbing, cyanosis or edema. Neuro: non focal Psych: normal mood IMPRESSION: dysphagia PLAN: I have discussed the above with the patient. I have offered EGD, possible biopsies I have explained the procedure to the patient. I have counseled the patient as to the risks of the procedure, including but not limited to: infection, bleeding, injury to any intrabdominal organs such as liver/spleen, perforation of the GI tract,inability to complete the procedure, complications of anesthesia, etc. - the patient understands. The patient wishes to proceed. I have answered all questions to the patient s satisfaction and the patient has no further questions. Diagnoses: (R13.10) Dysphagia, unspecified type (primary encounter diagnosis) * Bina Overton MD - 10/16/2023 12:15 PM EDT HISTORY AND PHYSICAL Bony Huang 1950 REFERRING PHYSICIAN: No ref. provider found CHIEF COMPLAINT: No chief complaint on file. HPI: The patient is a 73 year old female referred for endoscopy. Bony notes dysphagia. She also complains of epigastric fullness. She has been diagnosed with gastroparesis and chronic constipation, followed by GI medicine at [facility] for years. She complains of swallowing difficulties. She had previous EGD in 2019. She also notes chronic intermittent emesis and diarrhea. This occurs a few times a week. She had history of carcinoid surgery > 20 years ago. She denies blood in emesis; denies blood in stools. 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 [facility] TOTAL ABDOM HYSTERECTOMY CURRENT MEDICATIONS Current Outpatient Medications Medication Sig [place]-3 Fatty Acids 500 mg cap Take 500 mg by mouth once daily. Cholecalciferol, Vitamin D3, (VITAMIN D-3) 50 mcg (2,000 unit) cap Take by mouth. levothyroxine (SYNTHROID) 88 mcg tablet Take 88 mcg by mouth daily before breakfast. multivit/iron/FA/K/herb no.244 (ALIVE WOMEN'S ENERGY ORAL) Take 2 capsules by mouth once daily. B Complex Vitamins capsule Take 1 capsule by mouth daily before breakfast. promethazine (PHENERGAN) 12.5 mg tablet Take 12.5 mg by mouth every 8 hours as needed for Nausea/Vomiting. ciprofloxacin HCl (CIPRO) 500 mg tablet Take 250 mg by mouth twice daily. levothyroxine (SYNTHROID) 75 mcg tablet Take 1 tablet by mouth DAILY (6 AM). (Patient taking differently: Take 100 mcg by mouth once daily. ) pantoprazole DR (PROTONIX) 20 mg tablet Take 20 mg by mouth every evening. TRANSDERM-SCOP 1.5 MG TRANSDERMAL PATCH (1 MG OVER 3 DAYS) D-MANNOSE ORAL Take 1,000 mg by mouth twice daily. Multivitamins-Iron (DAILY MULTI-VITAMINS/IRON) tab Take 1 tablet by mouth twice daily. oxymetazoline (AFRIN, OXYMETAZOLINE,) 0.05 % nasal spray Use 2 Sprays in the nose as needed. cetirizine (ZYRTEC) 10 mg tablet Take 1 tablet by mouth once daily. lactobacillus rhamnosus R0011 (PROBIOTIC DIGESTIVE CARE) 20 billion cell cap Take 1 Can by mouth once daily. (Patient taking differently: Take 1 capsule by mouth daily with breakfast.) No current facility-administered medications for this visit. ALLERGIES: Asa [Aspirin], Bactrim [Sulfamethoxazole], and Sulfa (Sulfonamide Antibiotics) PERSONAL HISTORY: SOCIAL HISTORY Social History Tobacco Use Smoking status: Never Smokeless tobacco: Never Substance Use Topics Alcohol use: Yes Comment: occasional Drug use: Never FAMILY HISTORY FAMILY HISTORY Problem Relation Age of Onset Thyroid Mother surgical hypothyroidism Lipids Mother Breast Cancer Mother macular degeneration other (atrial fibrillation) Mother Coronary Artery Disease Father premature with TN at around 27yo Colon Cancer Sister other (Fibromyalgia) Sister other (Other) Grandchild Chavis syndrome The review of systems data was entered by the nurse and reviewed by nm Nursing Notes: Rosemarie Hope RN 09/16/2023 8:40 AM Signed REVIEW OF SYSTEMS: General: The patient denies fatigue, denies weight loss, denies weight gain, denies feeling hot, and denies feelings of cold. Eyes: The patient denies glaucoma, denies eye injury/surgery, does not wear glasses or contacts. Ear/Nose/Throat: The patient denies allergies, denies hayfever, denies ear infections, and denies bloody noses. Cardiovascular: The patient denies chest pain, denies heart disease, denies high blood pressure,denies cardiac stent, denies prior heart attack, denies irregular heart beat, denies high cholesterol, denies poor circulation, denies heart failure, other cardiac issues, denies claudication, denies cold feet, denies peripheral arterial stent. Respiratory: The patient denies tuberculosis, denies pneumonia, denies frequent cough, denies pulmonary embolism, denies shortness of breath, and denies coughing up blood. Gastrointestinal: The patient NOTES difficulty swallowing, NOTES acid reflux, denies ulcers, NOTES vomiting, denies jaundice/hepatitis, denies gallbladder problems, denies black or tarry stools, denies hemorrhoids, denies bleeding from rectum, denies diverticulitis, NOTES constipation, NOTES diarrhea, denies loss of stool control, and denies hernias. Kidney/Bladder: The patient denies kidney stones, denies urine infections, and denies bloody urine. Skin: The patient denies a history of skin cancer, denies bleeding/changing moles, and denies a history of skin rash. Neurologic: The patient denies a history of epilepsy/convulsions, denies headaches, denies head/spinal injuries, and denies stroke/TIA. Psychiatric: The patient denies psychiatric medications, denies depression, and denies voices, NOTES substance abuse. Endocrine: The patient denies thyroid disorders, denies diabetes, and denies hormonal problems. Hematologic: The patient denies a history of bruising, denies bleeding, and denies anemia, denies blood clots. Infections: The patient denies a history of measles and mumps, denies rheumatic fever, and denies sexually transmitted diseases. Musculoskeletal: The patient denies back pain/injury, denies back problems, denies sciatica, deniesknee/foot trouble, denies arthritis, or denies gout. When was patient's last Mammogram screening? 03/30/16 Last Colonoscopy: 11/07/18 Rosemarie Hope RN PHYSICAL EXAMINATION: General: The patient is 73 year old female, well nourished, well hydrated in no acute distress. Thepatient is oriented to time, place, and person. VITALS: There were no vitals taken for this visit. There is no height or weight on file to calculate BMI. Head: Normal cephalic, atraumatic Eyes: pupils are equally round, sclera are clear/anicteric Neck is supple with no tracheal deviation Cardiac: normal heart sounds, regular Respiratory: Normal respiratory excursion and pattern. Abdominal exam: benign Extremities: no clubbing, cyanosis or edema. Neuro: non focal Psych: normal mood IMPRESSION: dysphagia PLAN: I have discussed the above with the patient. I have offered EGD, possible biopsies I have explained the procedure to the patient. I have counseled the patient as to the risks of the procedure, including but not limited to: infection, bleeding, injury to any intrabdominal organs such as liver/spleen, perforation of the GI tract,inability to complete the procedure, complications of anesthesia, etc. - the patient understands. The patient wishes to proceed. I have answered all questions to the patient s satisfaction and the patient has no further questions. Diagnoses: (R13.10) Dysphagia, unspecified type (primary encounter diagnosis) documented in this encounterPark[facility] Nurse Note* Rosemarie Hope RN - 09/16/2023 8:37 AM EDT REVIEW OF SYSTEMS: General: The patient denies fatigue, denies weight loss, denies weight gain, denies feeling hot, and denies feelings of cold. Eyes: The patient denies glaucoma, denies eye injury/surgery, does not wear glasses or contacts. Ear/Nose/Throat: The patient denies allergies, denies hayfever, denies ear infections, and denies bloody noses. Cardiovascular: The patient denies chest pain, denies heart disease, denies high blood pressure,denies cardiac stent, denies prior heart attack, denies irregular heart beat, denies high cholesterol, denies poor circulation, denies heart failure, other cardiac issues, denies claudication, denies cold feet, denies peripheral arterial stent. Respiratory: The patient denies tuberculosis, denies pneumonia, denies frequent cough, denies pulmonary embolism, denies shortness of breath, and denies coughing up blood. Gastrointestinal: The patient NOTES difficulty swallowing, NOTES acid reflux, denies ulcers, NOTES vomiting, denies jaundice/hepatitis, denies gallbladder problems, denies black or tarry stools, denies hemorrhoids, denies bleeding from rectum, denies diverticulitis, NOTES constipation, NOTES diarrhea, denies loss of stool control, and denies hernias. Kidney/Bladder: The patient denies kidney stones, denies urine infections, and denies bloody urine. Skin: The patient denies a history of skin cancer, denies bleeding/changing moles, and denies a history of skin rash. Neurologic: The patient denies a history of epilepsy/convulsions, denies headaches, denies head/spinal injuries, and denies stroke/TIA. Psychiatric: The patient denies psychiatric medications, denies depression, and denies voices, NOTES substance abuse. Endocrine: The patient denies thyroid disorders, denies diabetes, and denies hormonal problems. Hematologic: The patient denies a history of bruising, denies bleeding, and denies anemia, denies blood clots. Infections: The patient denies a history of measles and mumps, denies rheumatic fever, and denies sexually transmitted diseases. Musculoskeletal: The patient denies back pain/injury, denies back problems, denies sciatica, deniesknee/foot trouble, denies arthritis, or denies gout. When was patient's last Mammogram screening? 03/30/16 Last Colonoscopy: 11/07/18 Rosemarie Hope RN [facility] Nurse Note* Rosemarie Hope RN - 09/16/2023 8:37 AM EDT REVIEW OF SYSTEMS: General: The patient denies fatigue, denies weight loss, denies weight gain, denies feeling hot, and denies feelings of cold. Eyes: The patient denies glaucoma, denies eye injury/surgery, does not wear glasses or contacts. Ear/Nose/Throat: The patient denies allergies, denies hayfever, denies ear infections, and denies bloody noses. Cardiovascular: The patient denies chest pain, denies heart disease, denies high blood pressure,denies cardiac stent, denies prior heart attack, denies irregular heart beat, denies high cholesterol, denies poor circulation, denies heart failure, other cardiac issues, denies claudication, denies cold feet, denies peripheral arterial stent. Respiratory: The patient denies tuberculosis, denies pneumonia, denies frequent cough, denies pulmonary embolism, denies shortness of breath, and denies coughing up blood. Gastrointestinal: The patient NOTES difficulty swallowing, NOTES acid reflux, denies ulcers, NOTES vomiting, denies jaundice/hepatitis, denies gallbladder problems, denies black or tarry stools, denies hemorrhoids, denies bleeding from rectum, denies diverticulitis, NOTES constipation, NOTES diarrhea, denies loss of stool control, and denies hernias. Kidney/Bladder: The patient denies kidney stones, denies urine infections, and denies bloody urine. Skin: The patient denies a history of skin cancer, denies bleeding/changing moles, and denies a history of skin rash. Neurologic: The patient denies a history of epilepsy/convulsions, denies headaches, denies head/spinal injuries, and denies stroke/TIA. Psychiatric: The patient denies psychiatric medications, denies depression, and denies voices, NOTES substance abuse. Endocrine: The patient denies thyroid disorders, denies diabetes, and denies hormonal problems. Hematologic: The patient denies a history of bruising, denies bleeding, and denies anemia, denies blood clots. Infections: The patient denies a history of measles and mumps, denies rheumatic fever, and denies sexually transmitted diseases. Musculoskeletal: The patient denies back pain/injury, denies back problems, denies sciatica, deniesknee/foot trouble, denies arthritis, or denies gout. When was patient's last Mammogram screening? 03/30/16 Last Colonoscopy: 11/07/18 Rosemarie Hope RN documented in this encounterPark[facility] History of Present illness Narrative* Bina Overton MD - 09/16/2023 8:11 AM EDT HISTORY AND PHYSICAL Bony French Reina 1950 REFERRING PHYSICIAN: No ref. provider found CHIEF COMPLAINT: No chief complaint on file. HPI: The patient is a 73 year old female referred for endoscopy. Bony notes dysphagia. She also complains of epigastric fullness. She has been diagnosed with gastroparesis and chronic constipation, followed by GI medicine at [facility] for years. She complains of swallowing difficulties. She had previous EGD in 2019. She also notes chronic intermittent emesis and diarrhea. This occurs a few times a week. She had history of carcinoid surgery > 20 years ago. She denies blood in emesis; denies blood in stools. 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 [facility] TOTAL ABDOM HYSTERECTOMY Current Outpatient Medications Medication Sig [place]-3 Fatty Acids 500 mg cap Take 500 mg by mouth once daily. Cholecalciferol, Vitamin D3, (VITAMIN D-3) 50 mcg (2,000 unit) cap Take by mouth. levothyroxine (SYNTHROID) 88 mcg tablet Take 88 mcg by mouth daily before breakfast. multivit/iron/FA/K/herb no.244 (ALIVE WOMEN'S ENERGY ORAL) Take 2 capsules by mouth once daily. B Complex Vitamins capsule Take 1 capsule by mouth daily before breakfast. promethazine (PHENERGAN) 12.5 mg tablet Take 12.5 mg by mouth every 8 hours as needed for Nausea/Vomiting. ciprofloxacin HCl (CIPRO) 500 mg tablet Take 250 mg by mouth twice daily. levothyroxine (SYNTHROID) 75 mcg tablet Take 1 tablet by mouth DAILY (6 AM). (Patient taking differently: Take 100 mcg by mouth once daily. ) pantoprazole DR (PROTONIX) 20 mg tablet Take 20 mg by mouth every evening. TRANSDERM-SCOP 1.5 MG TRANSDERMAL PATCH (1 MG OVER 3 DAYS) D-MANNOSE ORAL Take 1,000 mg by mouth twice daily. Multivitamins-Iron (DAILY MULTI-VITAMINS/IRON) tab Take 1 tablet by mouth twice daily. oxymetazoline (AFRIN, OXYMETAZOLINE,) 0.05 % nasal spray Use 2 Sprays in the nose as needed. cetirizine (ZYRTEC) 10 mg tablet Take 1 tablet by mouth once daily. lactobacillus rhamnosus R0011 (PROBIOTIC DIGESTIVE CARE) 20 billion cell cap Take 1 Can by mouth once daily. (Patient taking differently: Take 1 capsule by mouth daily with breakfast.) No current facility-administered medications for this visit. ALLERGIES: Asa [Aspirin], Bactrim [Sulfamethoxazole], and Sulfa (Sulfonamide Antibiotics) PERSONAL HISTORY: Social History Tobacco Use Smoking status: Never Smokeless tobacco: Never Substance Use Topics Alcohol use: Yes Comment: occasional Drug use: Never FAMILY HISTORY Problem Relation Age of Onset Thyroid Mother surgical hypothyroidism Lipids Mother Breast Cancer Mother macular degeneration other (atrial fibrillation) Mother Coronary Artery Disease Father premature with [place] at around 27yo Colon Cancer Sister other (Fibromyalgia) Sister other (Other) Grandchild Chavis syndrome The review of systems data was entered by the nurse and reviewed by me Nursing Notes: Rosemarie Hope RN 09/16/2023 8:40 AM Signed REVIEW OF SYSTEMS: General: The patient denies fatigue, denies weight loss, denies weight gain, denies feeling hot, and denies feelings of cold. Eyes: The patient denies glaucoma, denies eye injury/surgery, does not wear glasses or contacts. Ear/Nose/Throat: The patient denies allergies, denies hayfever, denies ear infections, and denies bloody noses. Cardiovascular: The patient denies chest pain, denies heart disease, denies high blood pressure,denies cardiac stent, denies prior heart attack, denies irregular heart beat, denies high cholesterol, denies poor circulation, denies heart failure, other cardiac issues, denies claudication, denies cold feet, denies peripheral arterial stent. Respiratory: The patient denies tuberculosis, denies pneumonia, denies frequent cough, denies pulmonary embolism, denies shortness of breath, and denies coughing up blood. Gastrointestinal: The patient NOTES difficulty swallowing, NOTES acid reflux, denies ulcers, NOTES vomiting, denies jaundice/hepatitis, denies gallbladder problems, denies black or tarry stools, denies hemorrhoids, denies bleeding from rectum, denies diverticulitis, NOTES constipation, NOTES diarrhea, denies loss of stool control, and denies hernias. Kidney/Bladder: The patient denies kidney stones, denies urine infections, and denies bloody urine. Skin: The patient denies a history of skin cancer, denies bleeding/changing moles, and denies a history of skin rash. Neurologic: The patient denies a history of epilepsy/convulsions, denies headaches, denies head/spinal injuries, and denies stroke/TIA. Psychiatric: The patient denies psychiatric medications, denies depression, and denies voices, NOTES substance abuse. Endocrine: The patient denies thyroid disorders, denies diabetes, and denies hormonal problems. Hematologic: The patient denies a history of bruising, denies bleeding, and denies anemia, denies blood clots. Infections: The patient denies a history of measles and mumps, denies rheumatic fever, and denies sexually transmitted diseases. Musculoskeletal: The patient denies back pain/injury, denies back problems, denies sciatica, deniesknee/foot trouble, denies arthritis, or denies gout. When was patient's last Mammogram screening? 03/30/16 Last Colonoscopy: 11/07/18 Rosemarie Hope RN PHYSICAL EXAMINATION: General: The patient is 73 year old female, well nourished, well hydrated in no acute distress. Thepatient is oriented to time, place, and person. VITALS: There were no vitals taken for this visit. There is no height or weight on file to calculate BMI. Head: Normal cephalic, atraumatic Eyes: pupils are equally round, sclera are clear/anicteric Neck is supple with no tracheal deviation Cardiac: normal heart sounds, regular Respiratory: Normal respiratory excursion and pattern. Abdominal exam: benign Extremities: no clubbing, cyanosis or edema. Neuro: non focal Psych: normal mood Assessment IMPRESSION: dysphagia PLAN: I have discussed the above with the patient. I have offered EGD, possible biopsies I have explained the procedure to the patient. I have counseled the patient as to the risks of the procedure, including but not limited to: infection, bleeding, injury to any intrabdominal organs such as liver/spleen, perforation of the GI tract,inability to complete the procedure, complications of anesthesia, etc. - the patient understands. 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 I have explained to the patient the difference between IV conscious sedation and MAC anesthesia - and I have offered either, according to the patient's wishes. I have explained that with IV conscioussedation there is no anesthesia provider available and therefore there is a limitation of the amount of IV medications that can be given and that the patient may wake up in the middle of the procedure and/or experience pain/discomfort during the procedure. Further discussion was done and the patient was given the opportunity to ask questions and all questions were answered. The patient chooses MAC anesthesia. The patient wishes to proceed. I have answered all questions to the patient s satisfaction and the patient has no further questions. My clinic staff has educated the patient as to the colon cleansing regimen and I have prescribed Golytely for the colon cleansing solution. The patient will be scheduled for the procedure at [facility]. Diagnoses: (R13.10) Dysphagia, unspecified type (primary encounter diagnosis) I have confirmed and edited as necessary, the PFSH and ROS obtained by others. Consultation requested by Dr. Cheikh Pinto for an opinion regarding patient's dysphagia. My finalrecommendations will be communicated back to the requesting physician by way of shared Medical record or letter to requesting physician via US mail. Medical Decision Making: Problems: Low: Stable chronic illness Risk: Moderate: Decision on minor surgery w/ risk factors Medical Decision Making Level: 3 - Low Bina Overton MD documented in this encounterPark[facility] Miscellaneous Notes* Telephone Encounter - Joann Orourke - 12/25/2022 9:[address] scan results are scanned for review documented in this encounterPark[facility]09-05-2023 Discharge summary Author Jaswant Aly [facility] December 18, 2022 9:22pm Note Date/Time December 18, 2022 6:42pm [facility] Medical Records Department [address] [place] [id number] Emergency Department Summary 12/18/22 MR#: [id number] Acct: [id number] Name: BONY HUANG Rep #:[id number] : 1950 72 From: Jaswant Aly DO PCP: Dr. Cheikh Pinto MD Status:[facility] ER Location: ED HPI HPI - GI History of Present Illness Chief Complaint: Nausea/Vomiting/Diarrhea Narrative Narrative: 72-year-old female presenting with diarrhea. She has a history of gastroparesis. 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 She does have history of hysterectomy and diverticulitis. Patient presenting with diarrhea and abdominal pain. She was told by her GI doctor from [facility] that is soon as she gets diarrhea and abdominal pain she should come to the ER for an x-ray of her abdomen. She states he wants this to look for an obstruction. Patient has had several days of diarrhea. She does have this chronically but states that last month it was much better. She has not had fever or chills. She is vomiting. [facility] Medical History Carcinoid tumor Gastroparesis Hypothyroidism polypectomy Home Medications levocetirizine 5 mg tablet 5 mg PO Q OTHER DAY 11/03/19 [History Last Taken Unknown] diphenoxylate-atropine 2.5 mg-0.025 mg tablet 1 tab PO BID PRN diarrhea #20 tabs05/16/22 [Rx Last Taken Unknown] promethazine 12.5 mg rectal suppository 12.5 mg AR Q6H PRN nausea and vomiting #12 ea 05/16/22 [Rx Last Taken Unknown] promethazine 25 mg tablet 25 mg PO BID PRN nausea and vomiting #30 tabs 05/16/22[Rx Last Taken Unknown] levothyroxine 88 mcg tablet 88 mcg PO DAILY #90 tabs 07/02/22 [Rx Last Taken Unknown] melatonin 5 mg capsule mg PO 10/25/22 [History Last Taken Unknown] prucalopride 2 mg tablet (Motegrity) 2 mg PO DAILY #90 tabs 10/25/22 [Rx Last Taken Unknown] metoclopramide HCl 10 mg tablet 10 mg PO Q6H PRN nausea and vomiting #20 tabs 11/10/22 [Rx Last Taken Unknown] pantoprazole 20 mg tablet,delayed release 20 mg PO TID #90 tabs 11/14/22 [Rx Last Taken Unknown] Allergy/AdvReac Type Severity Reaction Status Date / Time Sulfa (Sulfonamide Allergy Mild Rash Verified 12/18/22 17:21 Antibiotics) sulfamethoxazole Allergy Mild rash Verified 12/18/22 17:21 [From Bactrim] trimethoprim [From Bactrim] Allergy Mild rash Verified 12/18/22 17:21 aspirin AdvReac Mild nose bleed Verified 12/18/22 17:21 Family History Father Heart disease Myocardial infarction Mother CVA (cerebral vascular accident) Thyroid disorder Cancer Asthma Breast cancer Sister Cancer Surgical History H/O: hysterectomy Social History Smoking Status: Never smoker alcohol intake: never substance use type: does not use ROS ROS ED Constitutional Constitutional ED: Denies chills, fever(s) or sweats Eyes Eyes: Denies blurry vision or change in vision ENT ENT ED: Denies ear pain or sore throat Cardiovascular Cardiovascular: Denies chest pain, palpitations or racing heartbeat Respiratory/Chest Respiratory/Chest: Denies cough, dyspnea or sputum Gastrointestinal Gastrointestinal: Reports abdominal pain, diarrhea, nausea and vomiting; Denies constipation Genitourinary Genitourinary ED: Denies dysuria, hematuria or urinary frequency Musculoskeletal Musculoskeletal: Denies arthralgias, myalgias or neck pain Integumentary Denies abscess, Abrasions or rash Neurologic Neurologic: Denies headache(s), paresthesias or weakness Psychiatric Psychiatric: Denies anxiety, depression, suicidal ideation or suicidal thoughts Endocrine Endocrinology: Denies polydipsia or polyuria EXAM Physical Exam Const Vital Signs: 12/18/22 17:21 Temperature 98.2 F Temperature Source Temporal Pulse Rate 74 Respiratory Rate 14 Blood Pressure 96/68 Blood Pressure Mean 77 Pulse Ox 99 Oxygen Delivery Method Room Air Positive well nourished General Appearance ED: NAD; Negative for pallor HEENT Reports moist mucous membranes normocephalic and atraumatic Eyes PERRL Resp normal respiratory effort Cardio regular rate and regular rhythm GI non-tender and non-distended Neuro CN's II-XII intact bilaterally and moves all extremities Sensorium / Orientation: alert Psych mental status grossly normal Skin no wounds General Skin Exam: Negative for jaundice or pallor MDM MDM MDM Narrative Medical decision making narrative: 72-year-old female presenting with diarrhea. This is a chronic issue. She was told to come get evaluated with an x-ray should this happen. She does not have any systemic signs or symptoms such as fevers or chills. Differential includes colitis, enteritis, diverticulitis, viral syndrome. CBC was obtained to assess white blood cell count, hemoglobin, platelets. These were all normal. Creatinine is slightly elevated at 1.19 but electrolytes are normal. LFTs are normal. Lipase slightly elevated to 28. CT of the abdomen pelvis with IV contrast shows nonspecific enteritis. At this point I feel the patient stable for discharge. She states she has Reglan and Zofran at home for nausea. I recommend she hydrate well. Return precautions discussed. Impression: 1. Gastroenteritis Lab Data Labs: Laboratory Results - last 24 hr 12/18/22 19:00 WBC 8.7 RBC 5.27 Hgb 15.1 H Hct 46.4 MCV 88.0 MCH 28.7 MCHC 32.5 RDW Std Deviation 40.1 RDW Coeff of Dannie 12.5 Plt Count 299 MPV 9.6 Immature Gran % (Auto) 0.500 Neut % (Auto) 78.5 H Lymph % (Auto) 13.8 L [place] % (Auto) 5.9 Eos % (Auto) 0.8 Baso % (Auto) 0.5 Absolute Neuts (auto) 6.8 Absolute Lymphs (auto) 1.20 Nucleated RBC % 0 Sodium 137 Potassium 3.6 Chloride 102 Carbon Dioxide 25.0 Anion Gap 10 BUN 19 H Creatinine 1.19 H Estim Creat Clear Calc 35.87 Est GFR (MDRD) Af Amer 57 L Est GFR (MDRD) Non-Af 47 L BUN/Creatinine Ratio 16.0 Glucose 106 Calcium 10.4 H Total Bilirubin 0.50 AST 15 ALT 23 Alkaline Phosphatase 102 Total Protein 9.2 H Albumin 4.6 Globulin 4.6 H Albumin/Globulin Ratio 1.0 Lipase 228 H Radiography Diagnostic Testing: Clinical Impression(s) from Imaging Studies Abdomen/Pelvis CT 12/18/22 20:15 IMPRESSION: Findings consistent with enteritis and diarrheal illness. Electronically Signed: Mike Jc MD at 21:14 EDT Reading Location ID and State: [facility] / [place] Tel , Service support , Discharge Plan Triage Chief Complaint: Nausea/Vomiting/Diarrhea Other Complaint: Nausea/Vomiting ED Provider: Jaswant Aly Dx/Rx/DC Orders Prescriptions: No Action levocetirizine 5 mg tablet 5 mg PO Q OTHER DAY diphenoxylate-atropine 2.5-0.025 mg tablet 1 tab PO BID PRN (Reason: diarrhea) Qty: 20 1RF Motegrity 2 mg tablet 2 mg PO DAILY Qty: 90 1RF melatonin 5 mg capsule PO pantoprazole 20 mg tablet,delayed release (DR/EC) 20 mg PO TID Qty: 90 11RF metoclopramide HCl [metoclopramide HCl] 10 mg tablet 10 mg PO Q6H PRN (Reason: nausea and vomiting) Qty: 20 0RF promethazine 25 mg tablet 25 mg PO BID PRN (Reason: nausea and vomiting) Qty: 30 1RF promethazine 12.5 mg suppository 12.5 mg AR Q6H PRN (Reason: nausea and vomiting) Qty: 12 1RF levothyroxine 88 mcg tablet 88 mcg PO DAILY Qty: 90 3RF Primary Care Provider: Cheikh Pinto Referrals: Cheikh Pinto MD [Primary Care Provider] - What to do if you have Problems For any increased pain, shortness of breath, bleeding, nausea or vomiting, chestpain, or any unexpected problems, contact your Primary Care Provider. Call [facility] ([phone]) or report to the closest Emergency Room. Call 911 if necessary. 12/18/222121 <Electronically signed by Jaswant Aly DO> Cosigner Signature (if applicable): CC: Dr. Cheikh Pinto MD ~ Signed [facility] Work Phone: [phone] 408-467308-22-2023 History of Present illness Narrative* Brent Cantu DO - 12/04/2022 8:56 AM EDT FOLLOW UP VISIT CHIEF COMPLAINT Patient presents with: Establish Care: Follow up Ms. Huang is here today for follow-up of: Gastroparesis constipation. HPI I saw this 72y/o in f/u for Gi issues. She did not tolerate the Ibsrela. She went back to motegrityand stool softener. The nausea over all is better. Her carcinoid tumor was 25 yrs ago. When these attacks occur she has frequent diarrhea followed by the large volume vomiting. Current Outpatient Medications Medication Sig Dispense Refill [place]-3 Fatty Acids 500 mg cap Take 500 mg by mouth once daily. Cholecalciferol, Vitamin D3, (VITAMIN D-3) 50 mcg (2,000 unit) cap Take by mouth. levothyroxine (SYNTHROID) 88 mcg tablet Take 88 mcg by mouth daily before breakfast. promethazine (PHENERGAN) 12.5 mg tablet Take 12.5 mg by mouth every 8 hours as needed for Nausea/Vomiting. pantoprazole DR (PROTONIX) 20 mg tablet Take 20 mg by mouth every evening. 3 oxymetazoline (AFRIN, OXYMETAZOLINE,) 0.05 % nasal spray Use 2 Sprays in the nose as needed. cetirizine (ZYRTEC) 10 mg tablet Take 1 tablet by mouth once daily. 0 multivit/iron/FA/K/herb no.244 (ALIVE WOMEN'S ENERGY ORAL) Take 2 capsules by mouth once daily. B Complex Vitamins capsule Take 1 capsule by mouth daily before breakfast. ciprofloxacin HCl (CIPRO) 500 mg tablet Take 250 mg by mouth twice daily. levothyroxine (SYNTHROID) 75 mcg tablet Take 1 tablet by mouth DAILY (6 AM). (Patient taking differently: Take 100 mcg by mouth once daily. ) 30 tablet 0 TRANSDERM-SCOP 1.5 MG TRANSDERMAL PATCH (1 MG OVER 3 DAYS) 0 D-MANNOSE ORAL Take 1,000 mg by mouth twice daily. Multivitamins-Iron (DAILY MULTI-VITAMINS/IRON) tab Take 1 tablet by mouth twice daily. 0 lactobacillus rhamnosus R0011 (PROBIOTIC DIGESTIVE CARE) 20 billion cell cap Take 1 Can by mouth once daily. (Patient taking differently: Take 1 capsule by mouth daily with breakfast.) 0 No current facility-administered medications for this visit. ALLERGIES Allergen Reactions Asa [Aspirin] Other: See Comments nose bleeds Bactrim [Sulfametho* Swelling Sulfa (Sulfonamide * Swelling Lip swelling Social History Tobacco Use Smoking status: Never Smokeless tobacco: Never Substance Use Topics Alcohol use: Yes Comment: occasional Drug use: Never Medical History: No changes since last visit. REVIEW OF SYSTEMS: GENERAL: weight stable, no fevers. CARDIOVASCULAR: No chest pain, no edema RESPIRATORY: No dyspnea : neg CHIP TUNER: neg The remainder of the review of systems are negative. Reviewed with patient during visit today. PHYSICAL EXAMINATION: BP 181/83 Pulse 60 Ht 5' 2 (1.58m) Wt 145 lb 8.1 oz (66.0kg) BMI 26.61 kg/(m^2). GENERAL APPEARANCE: Well developed and well nourished. SKIN: Skin color, texture, turgor normal. No rashes or lesions. EYES: Conjunctiva normal without icterus. OROPHARYNX: lips, mucosa, and tongue normal, teeth and gums normal NECK: Supple, full range of motion, no lymphadenopathy, normal thyroid, no carotid bruits and no JVD LUNGS: Normal breath sounds, Clear to auscultation, No wheezes, No crackles. HEART:Normal PMI, Regular rate and rhythm, Normal heart sounds, S1 and S2 and No murmurs. NEURO: Alert and oriented in no acute distress. ABDOMEN: Normal bowel sounds, abdomen flat with no distention, Soft, non-tender, no hepatomegaly. no palpable masses, no abdominal bruits, no rebound and no rigidity. EXTREMITIES:Extremities normal, No deformities, No skin discoloration, No edema . Assessment Encounter Diagnosis ICD-10-CM 1. History of malignant carcinoid tumor Z85.9 HIAA-5 QUANT 24H UR 2. Nausea and vomiting, unspecified vomiting type R11.2 Brent Cantu DO 12/04/2022 documented [facility] Miscellaneous Notes* Telephone Encounter - CAM Tate - 10/10/2022 2:49 PM EDT External labs received Scanned to [facility] Forwarded to CAM Diallo documented in this encounterPark[facility] Miscellaneous Notes* Telephone Encounter - Torsten Wilson RN - 10/04/2022 3:59 PM EDT Called patient. Instructed patient to have hospital notes faxed to office for Dr Cantu to review. Fax number given. Instructed patient to keep office updated. Patient states understanding. * Telephone Encounter - Brent Cantu DO - 10/04/2022 1:48 PM EDT Will need to see the reports from the hospital. * Telephone Encounter - Torsten Wilson RN - 10/04/2022 12:02 PM EDT [facility] 09/11/22 Patient calling. Currently in the hospital in [facility]. States has had nausea and vomiting for a while now. Was taking Phenergan for the nausea but made her sleepy. Went to ER on Saturday and again yesterday and was admitted for nausea, vomiting and diarrhea. Has been on Ibsrela for 1 week now. Had 2 good days on Ibsrela (was able to eat and take medications.) Last dose of Ibrsrela was yesterday morning which she was able to keep down. States did not feel well by 3pm. Has not been able to eat or keep fluids down. Diarrhea has not stopped. Even having diarrhea during the night. Patient would like to know if she should continue the Ibsrela. Instructed patient she must follow what hospitalist orders while in hospital. Patient would also like to make a follow up appointment. Call transferred to schedulers to make a follow up. Please review and advise. documented in this encounterPark[facility]05-30-2023 History of Present illness Narrative* Ashley Thomas, RT(R) - 09/11/2022 8:45 AM EDT Radiology Service Progress Note PATIENT NAME: Bony Huang DATE OF SERVICE: September 11, 2022 TIME: 8:54 AM PATIENT IDENTITY VERIFICATION COMPLETED USING TWO (2) IDENTIFIERS: Name and Date of confirmedby patient verbally and Name and Date of confirmed by identification band. FALL SCREENING: Has the patient had 2 falls in the last year or 1 fall with injury or currently using an Ambulatory Assistive Device (Walker, Cane, Wheelchair, Crutches, etc.)? No PATIENT GENDER DATA: Female. status: : No status: NO. PATIENT RELEVANT IMPLANT DATA REVIEWED: Not Applicable RADIOLOGY DEPARTMENT: General X-ray: Exam(s) Completed: Abdomen X-Ray: Abdomen PERIPHERAL IV DATA: Not applicable SIGNED BY: RT Ailyn(R) September 11, 2022 8:54 AM documented in this encounterPark[facility]05-30-2023 History of Present illness Narrative* Brent Cantu, DO - 09/11/2022 8:05 AM EDT FOLLOW UP VIRTUAL VISIT I have communicated my name and active licensure. The patient's identity and physical location wereverified at the time of this visit. Either the patient or their legal field sales representative has been informed of the risks and benefits of -- and alternatives to -- treatment through a remote evaluation andconsents to proceed with the evaluation remotely. This visit was conducted as a virtual visit. CHIEF COMPLAINT Patient presents with: Gastroparesis Ms. Huang is here today for follow-up of: generalized dismotility. HPI I saw this patient in follow up for the gi issues by virtual visit. She was doing well over the past 3yrs. She had not been seen in the ER for 2 yrs. For the past 4-6 months she has had episodic diarrhea and vomiting. Previous smart pill showed a 20hr GET, SBTT 6hr 39min, CTT >122hr 27min. Current Outpatient Medications Medication Sig Dispense Refill [place]-3 Fatty Acids 500 mg cap Take 500 mg by mouth once daily. Cholecalciferol, Vitamin D3, (VITAMIN D-3) 50 mcg (2,000 unit) cap Take by mouth. levothyroxine (SYNTHROID) 88 mcg tablet Take 88 mcg by mouth daily before breakfast. prucalopride (MOTEGRITY) 2 mg tab tablet Take 1 tablet (2 mg) by mouth once daily. 30 tablet 11 promethazine (PHENERGAN) 12.5 mg tablet Take 12.5 mg by mouth every 8 hours as needed for Nausea/Vomiting. pantoprazole DR (PROTONIX) 20 mg tablet Take 20 mg by mouth every evening. 3 oxymetazoline (AFRIN, OXYMETAZOLINE,) 0.05 % nasal spray Use 2 Sprays in the nose as needed. cetirizine (ZYRTEC) 10 mg tablet Take 1 tablet by mouth once daily. 0 lactobacillus rhamnosus R0011 (PROBIOTIC DIGESTIVE CARE) 20 billion cell cap Take 1 Can by mouth once daily. (Patient taking differently: Take 1 capsule by mouth daily with breakfast.) 0 multivit/iron/FA/K/herb no.244 (ALIVE WOMEN'S ENERGY ORAL) Take 2 capsules by mouth once daily. B Complex Vitamins capsule Take 1 capsule by mouth daily before breakfast. ciprofloxacin HCl (CIPRO) 500 mg tablet Take 250 mg by mouth twice daily. levothyroxine (SYNTHROID) 75 mcg tablet Take 1 tablet by mouth DAILY (6 AM). (Patient taking differently: Take 100 mcg by mouth once daily. ) 30 tablet 0 TRANSDERM-SCOP 1.5 MG TRANSDERMAL PATCH (1 MG OVER 3 DAYS) 0 D-MANNOSE ORAL Take 1,000 mg by mouth twice daily. Multivitamins-Iron (DAILY MULTI-VITAMINS/IRON) tab Take 1 tablet by mouth twice daily. 0 ondansetron orally disintegrating (ZOFRAN ODT) 4 mg disintegrating tablet Take 1 tablet by mouth every 8 hours as needed for Nausea/Vomiting. (Patient not taking: Reported on 12/03/2018 ) 10 tablet 0 No current facility-administered medications for this visit. ALLERGIES Allergen Reactions Asa [Aspirin] Other: See Comments nose bleeds Bactrim [Sulfametho* Swelling Sulfa (Sulfonamide * Swelling Lip swelling Social History Tobacco Use Smoking status: Never Smokeless tobacco: Never Substance Use Topics Alcohol use: Yes Comment: occasional Drug use: Never Medical History: No changes since last visit. REVIEW OF SYSTEMS: GENERAL: weight stable, no fevers. CARDIOVASCULAR: No chest pain, no edema RESPIRATORY: No dyspnea : neg CHIP TUNER: neg The remainder of the review of systems are negative. Reviewed with patient during visit today. PHYSICAL EXAMINATION: BP 118/78 Pulse 73 Ht 5' 3 (1.60m) Wt 147 lb 7.8 oz (66.9kg) BMI 26.13 kg/(m^2). Estimated weight: GENERAL APPEARANCE: Well developed and well nourished. SKIN: Skin color, texture, turgor normal. No rashes or lesions. EYES: Conjunctiva normal without icterus. OROPHARYNX: lips, mucosa, and tongue normal, teeth and gums normal NECK: no JVD LUNGS: Normal respirations on RA HEART:pt describes normal heart rythm NEURO: Alert and oriented in no acute distress. ABDOMEN: nondistended EXTREMITIES:Extremities normal, No deformities, No skin discoloration, No edema . Assessment Encounter Diagnosis ICD-10-CM 1. Constipation, unspecified constipation type K59.00 XR ABDOMEN 1V SUPINE 2. Nausea and vomiting, unspecified vomiting type R11.2 Brent Cantu DO 09/11/2022 documented in this encounterPark[facility]07-24-2019 History of Past illness Narrative* Problem Noted Date Resolved Date Intractable nausea and vomiting 11/05/2018 11/08/2018 Last Assessment & Plan: Presented to the ED with acute nausea, vomiting, and diarrhea Onset 03/2018, intermittent episodes of N/V, diarrhea First feels increased acid followed by diarrhea, and then followed by nausea and vomiting Diarrhea is watery, cloudy-yellow and she may go as many as 20-30 x/day Diarrhea preceded with bloating and some cramping, relieved with BM. She denies BRBPR or melena Emesis is food if she has recently eaten, followed by yellow acidic-tasting fluid. She feels relief once she has 2-3 episodes of emesis. This whole cycle occurs approximately 2x/week. She limits her food intake at these times, as PO intake exacerbates symptoms. Antibiotics: amoxicillin x1 week in September [place] dental [place], goats, and cats. She reports tapeworm infection in the past, for which she received medication. She denies any travel, no sick contacts, no suspicious food intake, no medication changes. Sought care at an OSH in 05/2018, EGD and c-scope done at that time (see above) Placed on protonix BID Presented to [facility] 09/2018 for the symptoms described above. EGD was repeated at that time and findings include: LA Grade B esophagitis. Nodular mucosa in the gastric body. Nodular mucosa in the duodenal bulb. Pathology: Duodenal mucosa with gastric foveolar metaplasia and reactive epithelial changes. No morphologic evidence of a neuroendocrine neoplasm. Serotonin, 5-HIAA and gastrin level were obtained at that visit. Gastrin elevated, but believed to be in context of PPI. On arrival to the ED, the patient was HDS and afebrile. Initial labs notable for ALICIA sCr 1.3, TSH 0.126, lipase 37, lactate 1.4. She was given 1L NS bolus, zofran KUB NAP GES: moderate gastroparesis Plan: C diff, stool H pylori and celiac panel are negative follow up enteric panel, O&P Continue home scopolamine IVF support Consult to GI, appreciate recs Plan for Colonoscopy with biopsies to r/o MC, IBS. Follow 5-HIAA, serotonin Diarrhea 11/05/2018 11/08/2018 Last Assessment & Plan: See above ALICIA (acute kidney injury) 11/05/20182018 Last Assessment & Plan: Creatinine Date Value Ref Range Status 11/07/2018 0.97 (H) 0.58 - 0.96 mg/dL Final 11/06/2018 1.05 (H) 0.58 - 0.96 mg/dL Final 11/05/2018 1.33 (H) 0.58 - 0.96 mg/dL Final 09/15/2018 0.91 0.58 - 0.96 mg/dL Final Likely pre-renal in setting of reduced PO intake and GI loss Resolved Plan: Avoid nephrotoxins Renally dose meds documented as of this encounter (statuses as of 09/11/2022) [facility] History of Past illness Narrative* Problem Noted Date Resolved Date Intractable nausea and vomiting 11/05/2018 11/08/2018 Last Assessment & Plan: Presented to the ED with acute nausea, vomiting, and diarrhea Onset 03/2018, intermittent episodes of N/V, diarrhea First feels increased acid followed by diarrhea, and then followed by nausea and vomiting Diarrhea is watery, cloudy-yellow and she may go as many as 20-30 x/day Diarrhea preceded with bloating and some cramping, relieved with BM. She denies BRBPR or melena Emesis is food if she has recently eaten, followed by yellow acidic-tasting fluid. She feels relief once she has 2-3 episodes of emesis. This whole cycle occurs approximately 2x/week. She limits her food intake at these times, as PO intake exacerbates symptoms. Antibiotics: amoxicillin x1 week in September for dental procedure [place] to horses, goats, and cats. She reports tapeworm infection in the past, for which she received medication. She denies any travel, no sick contacts, no suspicious food intake, no medication changes. Sought care at an OSH in 05/2018, EGD and c-scope done at that time (see above) Placed on protonix BID Presented to [facility] 09/2018 for the symptoms described above. EGD was repeated at that time and findings include: LA Grade B esophagitis. Nodular mucosa in the gastric body. Nodular mucosa in the duodenal bulb. Pathology: Duodenal mucosa with gastric foveolar metaplasia and reactive epithelial changes. No morphologic evidence of a neuroendocrine neoplasm. Serotonin, 5-HIAA and gastrin level were obtained at that visit. Gastrin elevated, but believed to be in context of PPI. On arrival to the ED, the patient was HDS and afebrile. Initial labs notable for ALICIA sCr 1.3, TSH 0.126, lipase 37, lactate 1.4. She was given 1L NS bolus, zofran KUB NAP GES: moderate gastroparesis Plan: C diff, stool H pylori and celiac panel are negative follow up enteric panel, O&P Continue home scopolamine IVF support Consult to GI, appreciate recs Plan for Colonoscopy with biopsies to r/o MC, IBS. Follow 5-HIAA, serotonin Diarrhea 11/05/2018 11/08/2018 Last Assessment & Plan: See above ALICIA (acute kidney injury) 11/05/20182018 Last Assessment & Plan: Creatinine Date Value Ref Range Status 11/07/2018 0.97 (H) 0.58 - 0.96 mg/dL Final 11/06/2018 1.05 (H) 0.58 - 0.96 mg/dL Final 11/05/2018 1.33 (H) 0.58 - 0.96 mg/dL Final 09/15/2018 0.91 0.58 - 0.96 mg/dL Final Likely pre-renal in setting of reduced PO intake and GI loss Resolved Plan: Avoid nephrotoxins Renally dose meds documented as of this encounter (statuses as of 09/12/2022) [place] [id number] History of Past illness Narrative* Problem Noted Date Resolved Date Intractable nausea and vomiting 11/05/2018 11/08/2018 Last Assessment & Plan: Presented to the ED with acute nausea, vomiting, and diarrhea Onset 03/2018, intermittent episodes of N/V, diarrhea First feels increased acid followed by diarrhea, and then followed by nausea and vomiting Diarrhea is watery, cloudy-yellow and she may go as many as 20-30 x/day Diarrhea preceded with bloating and some cramping, relieved with BM. She denies BRBPR or melena Emesis is food if she has recently eaten, followed by yellow acidic-tasting fluid. She feels relief once she has 2-3 episodes of emesis. This whole cycle occurs approximately 2x/week. She limits her food intake at these times, as PO intake exacerbates symptoms. Antibiotics: amoxicillin x1 week in September for dental procedure [place] exposure to horses, goats, and cats. She reports tapeworm infection in the past, for which she received medication. She denies any travel, no sick contacts, no suspicious food intake, no medication changes. Sought care at an OSH in 05/2018, EGD and c-scope done at that time (see above) Placed on protonix BID Presented to [facility] 09/2018 for the symptoms described above. EGD was repeated at that time and findings include: LA Grade B esophagitis. Nodular mucosa in the gastric body. Nodular mucosa in the duodenal bulb. Pathology: Duodenal mucosa with gastric foveolar metaplasia and reactive epithelial changes. No morphologic evidence of a neuroendocrine neoplasm. Serotonin, 5-HIAA and gastrin level were obtained at that visit. Gastrin elevated, but believed to be in context of PPI. On arrival to the ED, the patient was HDS and afebrile. Initial labs notable for ALICIA sCr 1.3, TSH 0.126, lipase 37, lactate 1.4. She was given 1L NS bolus, zofran KUB NAP GES: moderate gastroparesis Plan: C diff, stool H pylori and celiac panel are negative follow up enteric panel, O&P Continue home scopolamine IVF support Consult to GI, appreciate recs Plan for Colonoscopy with biopsies to r/o MC, IBS. Follow 5-HIAA, serotonin Diarrhea 11/05/2018 11/08/2018 Last Assessment & Plan: See above ALICIA (acute kidney injury) 11/05/20182018 Last Assessment & Plan: Creatinine Date Value Ref Range Status 11/07/2018 0.97 (H) 0.58 - 0.96 mg/dL Final 11/06/2018 1.05 (H) 0.58 - 0.96 mg/dL Final 11/05/2018 1.33 (H) 0.58 - 0.96 mg/dL Final 09/15/2018 0.91 0.58 - 0.96 mg/dL Final Likely pre-renal in setting of reduced PO intake and GI loss Resolved Plan: Avoid nephrotoxins Renally dose meds documented as of this encounter (statuses as of 10/04/2022) [facility]07-[facility] History of Past illness Narrative* Problem Noted Date Resolved Date Intractable nausea and vomiting 11/05/2018 11/08/2018 Last Assessment & Plan: Presented to the ED with acute nausea, vomiting, and diarrhea Onset 03/2018, intermittent episodes of N/V, diarrhea First feels increased acid followed by diarrhea, and then followed by nausea and vomiting Diarrhea is watery, cloudy-yellow and she may go as many as 20-30 x/day Diarrhea preceded with bloating and some cramping, relieved with BM. She denies BRBPR or melena Emesis is food if she has recently eaten, followed by yellow acidic-tasting fluid. She feels relief once she has 2-3 episodes of emesis. This whole cycle occurs approximately 2x/week. She limits her food intake at these times, as PO intake exacerbates symptoms. Antibiotics: amoxicillin x1 week in September for dental [place] horses, goats, and cats. She reports tapeworm infection in the past, for which she received medication. She denies any travel, no sick contacts, no suspicious food intake, no medication changes. Sought care at an OSH in 05/2018, EGD and c-scope done at that time (see above) Placed on protonix BID Presented to [facility] 09/2018 for the symptoms described above. EGD was repeated at that time and findings include: LA Grade B esophagitis. Nodular mucosa in the gastric body. Nodular mucosa in the duodenal bulb. Pathology: Duodenal mucosa with gastric foveolar metaplasia and reactive epithelial changes. No morphologic evidence of a neuroendocrine neoplasm. Serotonin, 5-HIAA and gastrin level were obtained at that visit. Gastrin elevated, but believed to be in context of PPI. On arrival to the ED, the patient was HDS and afebrile. Initial labs notable for ALICIA sCr 1.3, TSH 0.126, lipase 37, lactate 1.4. She was given 1L NS bolus, zofran KUB NAP GES: moderate gastroparesis Plan: C diff, stool H pylori and celiac panel are negative follow up enteric panel, O&P Continue home scopolamine IVF support Consult to GI, appreciate recs Plan for Colonoscopy with biopsies to r/o MC, IBS. Follow 5-HIAA, serotonin Diarrhea 11/05/2018 11/08/2018 Last Assessment & Plan: See above ALICIA (acute kidney injury) 11/05/20182018 Last Assessment & Plan: Creatinine Date Value Ref Range Status 11/07/2018 0.97 (H) 0.58 - 0.96 mg/dL Final 11/06/2018 1.05 (H) 0.58 - 0.96 mg/dL Final 11/05/2018 1.33 (H) 0.58 - 0.96 mg/dL Final 09/15/2018 0.91 0.58 - 0.96 mg/dL Final Likely pre-renal in setting of reduced PO intake and GI loss Resolved Plan: Avoid nephrotoxins Renally dose meds documented as of this encounter (statuses as of 10/11/2022) [facility]07-[facility] History of Past illness Narrative* Problem Noted Date Diagnosed Date Resolved Date Intractable nausea and vomiting 11/05/2018 11/08/2018 Last Assessment & Plan: Presented to the ED with acute nausea, vomiting, and diarrhea Onset 03/2018, intermittent episodes of N/V, diarrhea First feels increased acid followed by diarrhea, and then followed by nausea and vomiting Diarrhea is watery, cloudy-yellow and she may go as many as 20-30 x/day Diarrhea preceded with bloating and some cramping, relieved with BM. She denies BRBPR or melena Emesis is food if she has recently eaten, followed by yellow acidic-tasting fluid. She feels relief once she has 2-3 episodes of emesis. This whole cycle occurs approximately 2x/week. She limits her food intake at these times, as PO intake exacerbates symptoms. Antibiotics: amoxicillin x1 week in September for dental procedure [place] exposure to horses, goats, and cats. She reports tapeworm infection in the past, for which she received medication. She denies any travel, no sick contacts, no suspicious food intake, no medication changes. Sought care at an OSH in 05/2018, EGD and c-scope done at that time (see above) Placed on protonix BID Presented to [facility] 09/2018 for the symptoms described above. EGD was repeated at that time and findings include: LA Grade B esophagitis. Nodular mucosa in the gastric body. Nodular mucosa in the duodenal bulb. Pathology: Duodenal mucosa with gastric foveolar metaplasia and reactive epithelial changes. No morphologic evidence of a neuroendocrine neoplasm. Serotonin, 5-HIAA and gastrin level were obtained at that visit. Gastrin elevated, but believed to be in context of PPI. On arrival to the ED, the patient was HDS and afebrile. Initial labs notable for ALICIA sCr 1.3, TSH 0.126, lipase 37, lactate 1.4. She was given 1L NS bolus, zofran KUB NAP GES: moderate gastroparesis Plan: C diff, stool H pylori and celiac panel are negative follow up enteric panel, O&P Continue home scopolamine IVF support Consult to GI, appreciate recs Plan for Colonoscopy with biopsies to r/o MC, IBS. Follow 5-HIAA, serotonin Diarrhea 11/05/2018 11/08/2018 Last Assessment & Plan: See above ALICIA (acute kidney injury) 11/05/2018 Last Assessment & Plan: Creatinine Date Value Ref Range Status 11/07/2018 0.97 (H) 0.58 - 0.96 mg/dL Final 11/06/2018 1.05 (H) 0.58 - 0.96 mg/dL Final 11/05/2018 1.33 (H) 0.58 - 0.96 mg/dL Final 09/15/2018 0.91 0.58 - 0.96 mg/dL Final Likely pre-renal in setting of reduced PO intake and GI loss Resolved Plan: Avoid nephrotoxins Renally dose meds documented as of this encounter (statuses as of 12/04/2022) [facility]07-[facility] History of Past illness Narrative* Problem Noted Date Diagnosed Date Resolved Date Intractable nausea and vomiting 11/05/2018 11/08/2018 Last Assessment & Plan: Presented to the ED with acute nausea, vomiting, and diarrhea Onset 03/2018, intermittent episodes of N/V, diarrhea First feels increased acid followed by diarrhea, and then followed by nausea and vomiting Diarrhea is watery, cloudy-yellow and she may go as many as 20-30 x/day Diarrhea preceded with bloating and some cramping, relieved with BM. She denies BRBPR or melena Emesis is food if she has recently eaten, followed by yellow acidic-tasting fluid. She feels relief once she has 2-3 episodes of emesis. This whole cycle occurs approximately 2x/week. She limits her food intake at these times, as PO intake exacerbates symptoms. Antibiotics: amoxicillin x1 week in September for dental procedure [place] exposure to horses, goats, and cats. She reports tapeworm infection in the past, for which she received medication. She denies any travel, no sick contacts, no suspicious food intake, no medication changes. Sought care at an OSH in 05/2018, EGD and c-scope done at that time (see above) Placed on protonix BID Presented to [facility] 09/2018 for the symptoms described above. EGD was repeated at that time and findings include: LA Grade B esophagitis. Nodular mucosa in the gastric body. Nodular mucosa in the duodenal bulb. Pathology: Duodenal mucosa with gastric foveolar metaplasia and reactive epithelial changes. No morphologic evidence of a neuroendocrine neoplasm. Serotonin, 5-HIAA and gastrin level were obtained at that visit. Gastrin elevated, but believed to be in context of PPI. On arrival to the ED, the patient was HDS and afebrile. Initial labs notable for ALICIA sCr 1.3, TSH 0.126, lipase 37, lactate 1.4. She was given 1L NS bolus, zofran KUB NAP GES: moderate gastroparesis Plan: C diff, stool H pylori and celiac panel are negative follow up enteric panel, O&P Continue home scopolamine IVF support Consult to GI, appreciate recs Plan for Colonoscopy with biopsies to r/o MC, IBS. Follow 5-HIAA, serotonin Diarrhea 11/05/2018 11/08/2018 Last Assessment & Plan: See above ALICIA (acute kidney injury) 11/05/2018 Last Assessment & Plan: Creatinine Date Value Ref Range Status 11/07/2018 0.97 (H) 0.58 - 0.96 mg/dL Final 11/06/2018 1.05 (H) 0.58 - 0.96 mg/dL Final 11/05/2018 1.33 (H) 0.58 - 0.96 mg/dL Final 09/15/2018 0.91 0.58 - 0.96 mg/dL Final Likely pre-renal in setting of reduced PO intake and GI loss Resolved Plan: Avoid nephrotoxins Renally dose meds documented as of this encounter (statuses as of 12/20/2022) [facility]07-[facility] History of Past illness Narrative* Problem Noted Date Diagnosed Date Resolved Date Intractable nausea and vomiting 11/05/2018 11/08/2018 Last Assessment & Plan: Presented to the ED with acute nausea, vomiting, and diarrhea Onset 03/2018, intermittent episodes of N/V, diarrhea First feels increased acid followed by diarrhea, and then followed by nausea and vomiting Diarrhea is watery, cloudy-yellow and she may go as many as 20-30 x/day Diarrhea preceded with bloating and some cramping, relieved with BM. She denies BRBPR or melena Emesis is food if she has recently eaten, followed by yellow acidic-tasting fluid. She feels relief once she has 2-3 episodes of emesis. This whole cycle occurs approximately 2x/week. She limits her food intake at these times, as PO intake exacerbates symptoms. Antibiotics: amoxicillin x1 week in September for dental procedure [place] exposure to horses, goats, and cats. She reports tapeworm infection in the past, for which she received medication. She denies any travel, no sick contacts, no suspicious food intake, no medication changes. Sought care at an OSH in 05/2018, EGD and c-scope done at that time (see above) Placed on protonix BID Presented to [facility] 09/2018 for the symptoms described above. EGD was repeated at that time and findings include: LA Grade B esophagitis. Nodular mucosa in the gastric body. Nodular mucosa in the duodenal bulb. Pathology: Duodenal mucosa with gastric foveolar metaplasia and reactive epithelial changes. No morphologic evidence of a neuroendocrine neoplasm. Serotonin, 5-HIAA and gastrin level were obtained at that visit. Gastrin elevated, but believed to be in context of PPI. On arrival to the ED, the patient was HDS and afebrile. Initial labs notable for ALICIA sCr 1.3, TSH 0.126, lipase 37, lactate 1.4. She was given 1L NS bolus, zofran KUB NAP GES: moderate gastroparesis Plan: C diff, stool H pylori and celiac panel are negative follow up enteric panel, O&P Continue home scopolamine IVF support Consult to GI, appreciate recs Plan for Colonoscopy with biopsies to r/o MC, IBS. Follow 5-HIAA, serotonin Diarrhea 11/05/2018 11/08/2018 Last Assessment & Plan: See above ALICIA (acute kidney injury) 11/05/2018 Last Assessment & Plan: Creatinine Date Value Ref Range Status 11/07/2018 0.97 (H) 0.58 - 0.96 mg/dL Final 11/06/2018 1.05 (H) 0.58 - 0.96 mg/dL Final 11/05/2018 1.33 (H) 0.58 - 0.96 mg/dL Final 09/15/2018 0.91 0.58 - 0.96 mg/dL Final Likely pre-renal in setting of reduced PO intake and GI loss Resolved Plan: Avoid nephrotoxins Renally dose meds documented as of this encounter (statuses as of 12/25/2022) [facility] Ferny Jett [facility] November 10, 2022 6:34am Note Date/Time November 10, 2022 5:[address] [facility] Medical Records Department [address] [place] [address] Emergency Department Summary 11/10/22 MR#: [id number] Acct: [id number] Name: BONY HUANG Rep #:[id number] 18 : 1950 72 From: Ferny Jett MD PCP: Dr. Cheikh Pinto MD Status:REG ER Location: ED HPI HPI - GI History of Present Illness Chief Complaint: Nausea/Vomiting Informant: patient and spouse/S.O. Narrative Narrative: Patient feels like she is having another vomiting episode due to gastroparesis. She has episodes like this every couple weeks chronically. This 1 has been for 2 or 3 days, having trouble keeping any fluids down at all. She has chronic diarrhea that is no different. No blood in the emesis or the diarrhea. Vomiting up basically clear fluid nonbilious. No coffee-ground emesis. No melena. No fevers or chills. She has Phenergan suppositories at home that she has been trying to use but not helping. She feels lightheaded like she is dehydrated andhaving muscle cramping in her legs. [facility] Medical History (Updated 11/10/22 @ 06:[address] Ferny Jett MD) Carcinoid tumor Gastroparesis Hypothyroidism polypectomy Home Medications levocetirizine 5 mg tablet 5 mg PO Q OTHER DAY 11/03/19 [History Last Taken Unknown] pantoprazole 20 mg tablet,delayed release 20 mg PO TID #90 tabs 11/13/21 [Rx Last Taken Unknown] diphenoxylate-atropine 2.5 mg-0.025 mg tablet 1 tab PO BID PRN diarrhea #20 tabs05/16/22 [Rx Last Taken Unknown] promethazine 12.5 mg rectal suppository 12.5 mg AR Q6H PRN nausea and vomiting #12 ea 05/16/22 [Rx Last Taken Unknown] promethazine 25 mg tablet 25 mg PO BID PRN nausea and vomiting #30 tabs 05/16/22[Rx Last Taken Unknown] levothyroxine 88 mcg tablet 88 mcg PO DAILY #90 tabs 07/02/22 [Rx Last Taken Unknown] cephalexin 500 mg capsule 500 mg PO Q8H #30 caps 10/25/22 [Rx Last Taken Unknown] melatonin 5 mg capsule mg PO 10/25/22 [History Last Taken Unknown] prucalopride 2 mg tablet (Motegrity) 2 mg PO DAILY #90 tabs 10/25/22 [Rx Last Taken Unknown] potassium chloride 40 mEq/15 mL oral liquid 40 meq (15 mL) PO DAILY 3 days #45 mL 10/31/22 [Rx Last Taken Unknown] metoclopramide HCl 10 mg tablet 10 mg PO Q6H PRN nausea and vomiting #20 tabs 11/10/22 [Rx Last Taken Unknown] Allergy/AdvReac Type Severity Reaction Status Date / Time Sulfa (Sulfonamide Allergy Mild Rash Verified 11/10/22 05:36 Antibiotics) sulfamethoxazole Allergy Mild rash Verified 11/10/22 05:36 [From Bactrim] trimethoprim [From Bactrim] Allergy Mild rash Verified 11/10/22 05:36 aspirin AdvReac Mild nose bleed Verified 11/10/22 05:36 Family History Father Heart disease Myocardial infarction Mother CVA (cerebral vascular accident) Thyroid disorder Cancer Asthma Breast cancer Sister Cancer Surgical History H/O: hysterectomy Social History Smoking Status: Never smoker alcohol intake: never substance use type: does not use ROS ROS ED Constitutional Constitutional ED: Denies chills or fever(s) Eyes Eyes: Denies change in vision or diplopia ENT ENT ED: Denies rhinorrhea or sore throat Cardiovascular Cardiovascular: Reports lightheadedness; Denies chest pain, palpitations or syncope Respiratory/Chest Respiratory/Chest: Denies cough or dyspnea Gastrointestinal Gastrointestinal: Reports diarrhea, nausea and vomiting; Denies abdominal pain, hematemesis, hematochezia or melena Genitourinary Genitourinary ED: Denies dysuria or hematuria Musculoskeletal Musculoskeletal: Reports other Details: leg cramping ; Denies back pain or neck pain Integumentary Denies abscess or rash Neurologic Neurologic: Denies headache(s), paresthesias or weakness Psychiatric Psychiatric: Denies anxiety or suicidal thoughts EXAM Physical Exam Const Vital Signs: 11/10/22 05:32 Temperature 97.3 F L Temperature Source Axillary Pulse Rate 94 Respiratory Rate 20 H Blood Pressure 139/100 H Blood Pressure Mean 113 Pulse Ox 98 Oxygen Delivery Method Room Air Positive well nourished and well developed General Appearance ED: well developed and NAD HEENT Reports moist mucous membranes normocephalic and atraumatic Eyes PERRL and EOMs intact bilaterally Neck full ROM and supple Resp normal respiratory effort and clear to auscultation bilaterally Cardio regular rate, regular rhythm and no murmurs Rate: Negative for tachycardic GI non-tender and non-distended GI Narrative: Limited exam due to actively vomiting Auscultation: normoactive bowel sounds Palpation: soft Back/Spine no CVA tenderness General Back: other FROM Extremity normal to inspection General Extremety ED: Negative for edema, pulses abnormal or tenderness General Extremity: Negative for edema or pulses abnormal Neuro oriented x3, CN's II-XII intact bilaterally and no sensory deficits noted Sensorium / Orientation: awake and alert Motor Exam: strength 5/5 throughout Skin no rashes or lesions noted and no wounds MDM MDM MDM Narrative Medical decision making narrative: Patient was given 2 L of IV fluids, 5 mg Reglan. She is feeling much better on reevaluation, she is admittedly states that sometimes even though she is feelingmuch better she will then go and start vomiting more later. I can redose her with more Reglan if she needs while she is here, but for now she is doing very well and having no abdominal symptoms. Plan is to discharge her with a prescription for Reglan to use as needed. She was using sublingual Zofran's at home and they were not helping, and she was having trouble keeping in the Phenergan suppositories due to the diarrhea. She states the diarrhea is chronicfor her. I do not think she needs advanced imaging of her abdomen/pelvis right now. Creatinine is 1.73, it was a little higher than this earlier in the month,her calcium is slightly elevated, I think this is nonspecific and does not necessarily indicate a recurrence of her cancer but she should follow-up for reevaluation and may be repeat labs some point in near future. Lab Data Attestation: I reviewed the patient's lab results. Labs: Laboratory Results - last 24 hr 11/10/22 05:50 WBC 9.7 RBC 5.43 H Hgb 15.7 H Hct 47.4 H MCV 87.3 MCH 28.9 MCHC 33.1 RDW Std Deviation 40.6 RDW Coeff of Dannie 12.9 Plt Count 330 MPV 9.9 Immature Gran % (Auto) 0.400 Neut % (Auto) 81.2 H Lymph % (Auto) 10.8 L [place] % (Auto) 6.8 Eos % (Auto) 0.4 Baso % (Auto) 0.4 Absolute Neuts (auto) 7.9 H Absolute Lymphs (auto) 1.05 Nucleated RBC % 0 Sodium 139 Potassium 4.0 Chloride 101 Carbon Dioxide 26.0 Anion Gap 12 BUN 17 Creatinine 1.73 H Estim Creat Clear Calc 24.67 Est GFR (MDRD) Af Amer 37 L Est GFR (MDRD) Non-Af 31 L BUN/Creatinine Ratio 9.8 L Glucose 156 H Calcium 10.5 H Total Bilirubin 0.40 AST 20 ALT 21 Alkaline Phosphatase 91 Total Protein 9.2 H Albumin 4.6 Globulin 4.6 H Albumin/Globulin Ratio 1.0 Discharge Plan Triage Chief Complaint: Nausea/Vomiting ED Provider: Ferny Jett Dx/Rx/DC Orders Clinical Impression: Nausea vomiting and diarrhea, Gastroparesis Instructions: Gastroparesis, ED Vomiting and Diarrhea ... Prescriptions: New metoclopramide HCl [metoclopramide HCl] 10 mg tablet 10 mg PO Q6H PRN (Reason: nausea and vomiting) Qty: 20 0RF No Action levocetirizine 5 mg tablet 5 mg PO Q OTHER DAY diphenoxylate-atropine 2.5-0.025 mg tablet 1 tab PO BID PRN (Reason: diarrhea) Qty: 20 1RF Motegrity 2 mg tablet 2 mg PO DAILY Qty: 90 1RF melatonin 5 mg capsule PO cephalexin 500 mg capsule 500 mg PO Q8H Qty: 30 0RF potassium chloride 40 mEq/15 mL liquid 40 meq PO DAILY 3 Days Qty: 45 0RF pantoprazole 20 mg tablet,delayed release (DR/EC) 20 mg PO TID Qty: 90 11RF promethazine 25 mg tablet 25 mg PO BID PRN (Reason: nausea and vomiting) Qty: 30 1RF promethazine 12.5 mg suppository 12.5 mg AR Q6H PRN (Reason: nausea and vomiting) Qty: 12 1RF levothyroxine 88 mcg tablet 88 mcg PO DAILY Qty: 90 3RF Primary Care Provider: Cheikh Pinto Referrals: Cheikh Pinto MD [Primary Care Provider] - 3-5 Days Activity Restrictions/Additional Instructions: Okay to take metoclopramide with Zofran, but do not take simultaneous with promethazine/Phenergan; basically, either Phenergan or metoclopramide/Reglan. Disposition Disposition: Home, Self Care What to do if you have Problems For any increased pain, shortness of breath, bleeding, nausea or vomiting, chestpain, or any unexpected problems, contact your Primary Care Provider. Call [facility] ([phone]) or report to the closest Emergency Room. Call 911 if necessary. 11/10/22633 <Electronically signed by Ferny Jett MD> Cosigner Signature (if applicable): CC: Dr. 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 Hypothyroidism (acquired) [facility] Work Phone: Evaluation note* Diagnosis Constipation, unspecified constipation type- Primary Nausea and vomiting, unspecified vomiting type [facility] [place] [facility] Diagnosis Constipation, unspecified constipation type documented in this encounter [facility] note* Diagnosis Onset Date Resolution Status Gastroparesis chronic 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 Hypothyroidism (acquired) [facility] Work Phone: Evaluation note* Diagnosis Onset Date Resolution Status Gastroparesis chronic 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 Hypothyroidism (acquired) ch ronic Elevated lipase acute Gastroparesis chronic 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 Hypothyroidism (acquired) [facility] Work Phone: Evaluation note* Diagnosis History of malignant carcinoid tumor- Primary Personal history of malignant neuroendocrine tumor Nausea and vomiting, unspecified vomiting type Malnutrition of mild degree (HCC) Malnutrition of mild degree [facility] [place] [facility] Diagnosis Onset Date Resolution Status Acute diverticulitis of intestine acute Gastroparesis chronic Hypothyroidism (acquired) ch cailin Gastroparesis chronic 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 Hypothyroidism (acquired) ch cailin [facility] Work Phone: Evaluation note* Diagnosis Dysphagia, unspecified type- Primary [facility] [place] [facility]* Diagnosis Nausea and vomiting, unspecified vomiting type- Primary Dysphagia, unspecified type documented in this encounter [facility] note* Diagnosis Non-intractable vomiting with nausea, unspecified vomiting type- Primary ALICIA (acute kidney injury) Acute kidney failure, unspecified Allergic rhinitis, unspecified seasonality, unspecified trigger Diarrhea, unspecified type Gastroesophageal reflux disease with esophagitis Intractable vomiting with nausea, unspecified vomiting type Thyroid dysfunction Unspecified disorder of thyroid Malnutrition of mild degree (HCC) Malnutrition of mild degree Acquired hypothyroidism Unspecified hypothyroidism Intractable nausea and vomiting Persistent vomiting Allergic rhinitis Allergic rhinitis, cause unspecified GERD (gastroesophageal reflux disease) Esophageal reflux Acquired hypothyroidism Unspecified hypothyroidism Diarrhea ALICIA (acute kidney injury) Acute kidney failure, unspecified Malnutrition of mild degree (HCC) Malnutrition of mild degree Epigastric pain- Primary Abdominal pain, epigastric Hiatal hernia Diaphragmatic hernia without mention of obstruction or gangrene [facility] Additional Instructions Okay to take metoclopramide with Zofran, but do not take simultaneous with promethazine/Phenergan; basically, either Phenergan or metoclopramide/Reglan.[facility] Work Phone: Hospital Discharge instructionsAmbulatory Orders* Gastroenterology Location: None Selected [facility] Work Phone: Progress note Author Cheikh Pinto [facility] Services Note Date/Time February 03, 2025 1 0:56am [place] [facility] [address] [facility] [place] [address] OFFICE VISIT Date of Service: 02/03/25 MR#: [id number] Acct: [id number] Name: BONY HUANG Rep #: [id number] : 1950 Provider: Dr. Geni Pinto MD Age/Sex: 75/F Location: [facility] Status: Signed Intake Vital Signs 12/21/24 11:07 02/03/25 09:05 Height 5 ft 3 in 5 ft 3 in Weight: 152 lb 4 oz 152 lb 6 oz BMI 26.9 26.9 BP 128/78 H 148/88 H Blood Pressure Location Rt brachial Lt brachial Position Sitting Sitting Respiration 16 16 Pulse 69 64 Pulse Source Monitor Monitor Temp 98.6 F 98.6 F Temp Source Temporal Temporal Pulse Oximetry (%) 98 97 Oxygen Delivery Method room air room air Intake Visit Reasons: Transitional Care Management Chief Complaint: Abnormal bowel movements Auditor Medical Claims Required: No Accompanied by: Is patient in pain?: No Allergies Sulfa (Sulfonamide Antibiotics) Allergy (Mild, Verified 02/03/25 08:57) Rash sulfamethoxazole (From Bactrim) Allergy (Mild, Verified 02/03/25 08:57) rash trimethoprim (From Bactrim) Allergy (Mild, Verified 02/03/25 08:57) rash aspirin Adverse Reaction (Mild, Verified 02/03/25 08:57) nose bleed Medications ?Medication ?Instructions ?Recorded ?Confirmed ?Type melatonin 5 mg capsule 5 mg PO DAILY 10/25/2202/03 History cholecalciferol (vitamin D3) 25 25 mcg PO QDAY 4 02/03/25 History mcg (1,000 unit) capsule pantoprazole 20 mg tablet,delayed 20 mg PO 4XD 4 02/03/25 History release potassium iodide 65 mg tablet 130 mg PO DAILY 02/17/24 02/03/25 History ondansetron 4 mg disintegrating 4 mg PO Q8H PRN PRN Na usea #10 tabs 02/20/24 02/03/25 Rx tablet brain sync PO DAILY 02/24/24 02/03/25 H istory cetirizine 5 mg tablet 5 mg PO QDAY PRN 02/24/24 History digestive enzymes 1 tab PO QDAY 02/24/2402/03 History vitamin B complex 1 tab PO QDAY 02/24/2402/03 History Motegrity 2 mg tablet 2 mg PO DAILY #90 tabs 05/2502/03/25 Rx (prucalopride) levothyroxine 88 mcg tablet 88 mcg PO DAILY #90 tabs 0 07/06/24 02/03/25 Rx ergocalciferol (vitamin D2) 10 mcg 10 mcg PO QDAY 0711/0602/03/25 History (400 unit) tablet loperamide 2 mg capsule 2 mg PO Q6H PRN 02/03/25 History polyethylene glycol 3350 17 4 g PO ONCE 02/03/2502/03 History gram/dose oral powder (Miralax) psyllium husk 0.4 gram capsule 0.4 g PO ONCE 02/03/25 02/03/25 History (Metamucil) Have you fallen in the past year?: No PFSH Medical History (Updated 02/03/25 @ 09:[address] Cheikh Pinto MD) Elevated serum creatinine Hypothyroidism polypectomy Gastroparesis Carcinoid tumor Surgical History H/O: hysterectomy Family History Father Heart disease Myocardial infarction Mother CVA (cerebral vascular accident) Thyroid disorder Cancer Asthma Breast cancer Sister Cancer Social History Smoking Status: Never smoker alcohol intake: never substance use type: does not use HPI HPI Chief Complaint: Abnormal bowel movements Details: BONY HUANG, is a 75 F who presents to the office today for ER follow-up. Hospital follow-up. Since last seen, has had a couple of additional ER visits. Unfortunately, [facility] in [place] declined seeing Bony within their gastric motility disorder clinic. She did get back in with [facility]. However to me, no specific inroads were made in that interaction. She was admitted through the emergency room during 1 of these episodes. She states initially they treated her with IV fluids and she was starting to feel better and they were intending to release her however then she rebounded with symptoms and they ended up keeping her for 5 days however no new specific revelations were made. No new studies were made or anticipated. They did ask her to stop Motegrity. Iwould agree with that decision from the standpoint that in retrospect this is not in any way significantly helped her with her ongoing symptoms. Did not cut down the number of episodes of requiring emergency room IV fluids for this situation. However again no new revelations. She had a recent ER visit just a few days ago on the for Pomerene with nausea, vomiting, abdominal discomfort. Was given IV fluids and Zofran and discharged. From the [facility] standpoint, I guess they will continue tofollow her however they just suggested that she work with the combination of fiber supplement on the 1 hand as well as MiraLAX and if said send the diarrhea,loperamide. She still has a fairly limited dietary spectrum of foods that she can tolerate. Most of these are pur?ed at this point. Review of systems per chart. Physical exam. Vital signs on chart. Sclera are clear. No cervical or supraclavicular lymph nodes enlarged or tender. No clear thyromegaly. No thyroid nodules readily palpable. Lungs are without wheeze, rhonchi, rales. Osmel/A changes are heard. Heart is regular. Not tachycardic. No clear murmur, rub, or gallop is identified. The abdomen is soft. Bowel sounds are present. Nontender nondistended abdomen. No clear palpable masses in the abdomen. No significant leg edema. No obvious rashes. No obvious significant skin lesions are identified. ROS Const Constitutional: No body ache, chills, excessive sweating, fatigue, fever(s), frequent falls, headache(s), snoring, weakness or change in appetite Eyes Eyes: No blurry vision, change in vision, eye pain or Light sensitivity ENT ENT: No abnormal hearing, ear or mastoid pain, tinnitus, nasal congestion, headache(s), neck pain or sore throat Resp Respiratory: No cough, shortness of breath, snoring or wheezing Cardio Cardiology: No chest pain at rest, chest pain with exertion, excessive sweating,dyspnea on exertion, lightheadedness, orthopnea or palpitations Gastro GI: No abdominal pain, change in bowel habits, constipation, cramping, diarrhea,nausea/dyspepsia or vomiting Genitourinary-Female: No burning urination, painful urination, urinary incontinence or urinary frequency Musc Musculoskeletal: No abnormal gait, joint pain, back pain, limited range of motion, muscle weakness, neck pain or numbness Skin Skin: No dry skin, redness, lesions, itchy eyes, rash or wounds Neuro Neurology: No abnormal gait, abnormal hearing, weakness, frequent falls, headache(s), memory loss or numbness Psych Psychiatric: No anxiety, No change in appetite, No depression, No memory loss and No Thoughts of harming yourself/Others Endo Endocrine: No cold intolerance, excessive sweating, fatigue, flushing, heat intolerance, increased thirst/drinking or increased hunger Aller/Imm Allergy/Immunologic: No itchy eyes, seasonal allergy symptoms, hives or wheezing Frankie/Lymp Hematologic/Lymphatic: No easy bleeding or easy bruising Coding Level of Care Code Off vis,est,level 3 Diagnoses Gastroparesis K31.84 History of malignant carcinoid tumor of small intestine Z85.060 Hypothyroidism (acquired) E03.9 Hypothyroidism E03.9 Time Spent (min) 30 Assessment and Plan Assessment and Plan (1) Gastroparesis: Status: Chronic (2) History of malignant carcinoid tumor of small intestine: Status: Chronic (3) Hypothyroidism (acquired): Status: Chronic (4) Hypothyroidism: Status: Acute Plan Details Additional Comments: Patient presented as above. Despite getting to [facility], no new revelations in terms of what the etiology and then ultimately how to address hersituation. She continues to have repeated episodes of nausea followed by vomiting, diarrhea and ultimately getting dehydrated. All of this tends to comeon quickly and advanced fairly quickly. She states it always starts with upper GI rumbling feeling. Her dietary intake is obviously sufficient in terms of maintaining weight however she is fairly limited in the types and variety of foods that she is eating. All of it pur?ed at this point. Agree with getting rid of the Motegrity. It appeared to me and then it really never did a whole lot of benefit for her. I encouraged her to go and get the cortisol stimulationtest completed. While not highly suspicious, I still have at least some concernand this should be effectively ruled out as contributor to her situation. Also has another potential way to look at this would be functional medicine at [facility]. I have encouraged her to read on their website about functional medicine and see if from their approach if they can make any improvements here. I would not change any of the medical regimen otherwise. She will keep us apprised of any changes in her circumstances, await the ACTH stim test. 30- minute visit. Clinical Quality Measures Falls Risk Screening/Assistive Devices Have you fallen in the past year?: No 02/03/25 1004 <Electronically signed by Cheikh davison MD> Date _ Cheikh Pinto MD Cosigner Signature: Date (if applicable) CC: ~ [place] [employer] Work Phone: [facility] for referral (narrative)* Diagnostic Procedure Only (Routine) - Closed Specialty Diagnoses / Procedures Referred By Maggie t Referred To Contact XR IMAGING Diagnoses Constipation, unspecified constipation type Procedures XR ABDOMEN 1V SUPINE RADIOLOGIC EXAM ABDOMEN 1 VIEW Brent Cantu DO [address] [place] [address] Xr Imaging Referral ID Status Reason Start Date Expiration Date V isits Requested Visits Authorized [id number] Closed Auto-Generate d Referral 09/11/2022 10/11/2023 1 1 [facility] for referral (narrative)* Diagnostic Procedure Only (Routine) - Closed Specialty Diagnoses / Procedures Referred By Maggie t Referred To Contact XR IMAGING Diagnoses Constipation, unspecified constipation type Procedures XR ABDOMEN 1V SUPINE RADIOLOGIC EXAM ABDOMEN 1 VIEW Brent Cantu DO [address] [place] [address] Xr Imaging Referral ID Status Reason Start Date Expiration Date V isits Requested Visits Authorized [id number] Closed Auto-Generate d Referral 09/11/2022 10/11/2023 1 1 [facility] for referral (narrative)* Outpatient Procedure (Routine) - Authorized Specialty Diagnoses / Procedures Referred By Contac t Referred To Contact [facility] [place] Diagnoses Dysphagia, unspecified type Procedures EGD DIAGNOSTIC ESOPHAGOGASTRODUODENOSC OPY TRANSORAL DIAGNOSTIC Bina Overton MD [address] [facility] [place] [address] [address] Referral ID Status Reason Start Date Expiration Date Visits Requested Visits Authorized [id number] Authorized Auto-Generat ed Referral 09/16/2023 09/15/2024 1 1 [facility] for referral (narrative)* Outpatient Procedure (Routine) - Closed Specialty Diagnoses / [facility] To [facility] DISEASE [place] Diagnoses Dysphagia, unspecified type Procedures EGD DIAGNOSTIC ESOPHAGOGASTRODUODENOSC OPY TRANSORAL DIAGNOSTIC Bina Overton MD [address] [place] [address] [address] Referral ID Status Reason Start Date Expiration Date V isits Requested Visits Authorized [id number] Closed Auto-Generate d Referral 09/16/2023 09/15/2024 1 1 T [facility] for referral (narrative)No reason for referral information availableJohnson [facility] Work Phone: [facility] for visit Narrative* Diagnostic Procedure Only (Routine) - Closed Specialty Diagnoses / Procedures Referred By Contac t Referred To Contact XR IMAGING Diagnoses Constipation, unspecified constipation type Procedures XR ABDOMEN 1V SUPINE RADIOLOGIC EXAM ABDOMEN 1 VIEW Brent Cant[facility] [address] [place] [address] Xr Imaging Referral ID Status Reason Start Date Expiration Date V isits Requested Visits Authorized [id number] Closed Auto-Generate d Referral 09/11/2022 10/11/2023 1 [facility] Outpatient Procedure (Routine) - Closed Specialty Diagnoses / Procedures Referred By Maggie t Referred To Contact [facility] Diagnoses Dysphagia, unspecified type Procedures EGD DIAGNOSTIC ESOPHAGOGASTRODUODENOSC OPY TRANSORAL DIAGNOSTIC Bina Overton MD [address] [place] [address] [facility] [address] [place] [address] Referral ID Status Reason Start Date Expiration Date V isits Requested Visits Authorized [id number] Closed Auto-Generate d Referral 09/16/2023 09/15/2024 1 1 [facility] Summary Purpose Family History Relationship Condition Age at Onset Recorded Date/T vivek father Cardiac disease Unknown Myocardial infarction Unknown mother Cerebrovascular accident (CVA) Unknown Disorder of thyroid Unknown Malignant neoplasm Unknown Asthma Unknown Malignant neoplasm of breast Unknown sister Malignant neoplasm Unknown Advance Directives Latest Code Status on File Code Status Date Activated Date Inactivated Comments Full Code 11/05/2018 2:35 PM 11/08/2018 2:56 PM Full Code Order Discussed With: Patient Latest Code Status on File Code Status Date Activated Date Inactivated Comments Full Code 11/05/2018 2:35 PM 11/08/2018 2:56 PM Advance Directive Response Recorded Date/ Time Living Will No November 10, 2022 5:47am Power of Serging Machine Operator No November 10 5:47am Latest Code Status on File Code Status Date Activated Date Inactivated Comments Full Code 11/05/2018 2:35 PM 11/08/2018 2:56 PM Question Answer Comments Full Code Order Discussed With: Patient Advance Directive Response Recorded Date/ Time Living Will No December 18 023 7:02pm Power of Serging Machine Operator No December 18, 2022 7:02pm Date Activated Date Inactivated Comments 11/05/2018 2:35 PM 11/08/2018 2:56 PM Question Answer Comments Full Code Order Discussed With: Patient Date Activated Date Inactivated Comments 11/05/2018 2:35 PM 11/08/2018 2:56 PM Question Answer Comments Full Code Order Discussed With: Patient Chief Complaint and Reason for Visit Chief Complaint Pomerene ER FU 4 M FU Reason for Visit Acute diverticulitis of intestine Gastroparesis Hypothyroidism (acquired) Acute diverticulitis of intestine Gastroparesis History of malignant carcinoid tumor of small intestine Hypothyroidism (acquired) Chief Complaint Hospital FU n/v nausea vomiting Reason for Visit Gastroparesis History of malignant carcinoid tumor of small intestine Hypothyroidism (acquired) Chief Complaint Hospital FU n/v nausea vomiting [facility] ER FU Reason for Visit Gastroparesis History of malignant carcinoid tumor of small intestine Hypothyroidism (acquired) Elevated lipase Gastroparesis History of malignant carcinoid tumor of small intestine Hypothyroidism (acquired) Chief Complaint Hospital FU n/v nausea vomiting [facility] ER FU N/D Reason for Visit Gastroparesis History of malignant carcinoid tumor of small intestine Hypothyroidism (acquired) Elevated lipase Gastroparesis History of malignant carcinoid tumor of small intestine Hypothyroidism (acquired) Chief Complaint Immunity Issues Annual/Physical Reason for Visit Acute diverticulitis of intestine Gastroparesis Hypothyroidism (acquired) Gastroparesis History of malignant carcinoid tumor of small intestine Hypothyroidism (acquired) Chief Complaint Admit Date Pomerene Discharge FU October 19, 2024 1:4 0pm Chief Complaint Admit Date Pomerene Discharge FU October 19, 2024 1:4 0pm Annual/Physical December 21, 2024 10:51am Chief Complaint Admit Date Annual/Physical December 21, 2024 10:51am Transitional Care Management January 9:04am Reason for Visit Admit Date Gastroparesis December 21, 2024 10:51am History of malignant carcinoid tumor of small intestine December 21, 2024 10:51am Hypothyroidism (acquired) December 21, 2024 10:51am Hypothyroidism February 03, 2025 9 :04am Gastroparesis February 03, 2025 9 :04am History of malignant carcinoid tumor of small intestine February 03, 2025 9:04am Hypothyroidism (acquired) February 03, 2025 9:04am Additional Source Comments INFORMATION SOURCE (unrecogn ized section and content) DATE CREATED AUTHOR 06/25/2018 [facility] DATE CREATED AUTHOR AUTHOR'S ORGANIZ ATION 06/28/2018 [facility] DATE CREATED AUTHOR AUTHOR'S ORGANIZ ATION 10/18/2023 [facility] DATE CREATED AUTHOR AUTHOR'S ORGANIZ ATION 12/25/2024 [facility] DATE CREATED AUTHOR AUTHOR'S ORGANIZ ATION 01/23/2025 [facility] DATE CREATED AUTHOR AUTHOR'S ORGANIZ ATION 02/06/2025 [facility] DATE CREATED AUTHOR AUTHOR'S ORGANIZ ATION 02/20/2025 [facility] DATE CREATED AUTHOR AUTHOR'S ORGANIZ ATION 02/20/2025 [facility] Goals (unrecognized section and content) Goals may be documented in a n alternate sectionGoals may be documented in an alternate sectionGoals may be documented in an alternate sectionGoals may be documented in an alternate sectionGoals may be documented in an alternate sectionGoals may be documented in an alternate sectionGoals may be documented in an alternate sectionGoals may be documented in an alternate sectionGoals may be documented in an alternate section Care Teams (unrecognized sec tion and content) Team Status: Active Member Role Status Dates Dr. Cheikh Pinto MD Primary Care Provider Active Team Status: Inactive Member Role Status Dates Dr. Cheikh Pinto MD Primary Care Provider, [facility] Provider Active Lab Aid Relationship Specialty Start Date End Date Cheikh Pinto MD PCP - General Internal Medicine 02/19/18 Lab Aid Relationship Specialty Start Date End Date Cheikh Pinto MD PCP - General Internal Medicine 02/19/18 Lab Aid Relationship Specialty Start Date End Date Cheikh Pinto MD PCP - General Internal Medicine 02/19/18 Lab Aid Relationship Specialty Start Date End Date Cheikh Pinto MD PCP - General Internal Medicine 02/19/18 Team Status: Inactive Member Role Status Dates Dr. Cheikh Pinto MD Primary Care Provider Active Dr. Jany Talamantes MD Attending Provider, Emergency Provider Active Team Status: Inactive Member Role Status Dates Dr. Cheikh Pinto MD Primary Care Provider Active Dr. Ferny Jett MD Emergency Provider Active Team Status: Inactive Member Role Status Dates Dr. Cheikh Pinto MD Primary Care Pro vider, Attending Provider, Referring Provider Active Team Status: Inactive Member Role Status Dates Dr. Cheikh Pinto MD Primary Care Provider Active Dr. Ferny Jett MD Attending Provider, Emergency Provider Active Lab Aid Relationship Specialty Start Date End Date Cheikh Pinto MD PCP - General Internal Medicine 02/19/18 Team Status: Inactive Member Role Status Dates Dr. Cheikh Pinto MD Primary Care Provider Active Dr. Jaswant Aly DO Emergency Provider Active Lab Aid Relationship Specialty Start Date End Date Cheikh Pinto MD PCP - General Internal Medicine 02/19/18 Lab Aid Relationship Specialty Start Date End Date Cheikh Pinto MD PCP - General Internal Medicine 02/19/18 Lab Aid Relationship Specialty Start Date End Date Cheikh Pinto MD PCP - General Internal Medicine 02/19/18 Lab Aid Relationship Specialty Start Date End Date Cheikh Pinto MD PCP - General Internal Medicine 02/19/18 Lab Aid Relationship Specialty Start Date End Date Cheikh Pinto MD PCP - General Internal Medicine 02/19/18 Team Status: Active Member Role/Relationship Status Dates Dr. Cheikh Pinto MD Primary Care Provider Active Team Status: Inactive Member Role/Relationship Status Dates Dr. Cheikh Pinto MD Primary Care Provider Active Start: October 19, 2024 End: October 19, 2024 Dr. Cheikh Pinto MD Attending Provider Active Start: October 19, 2024 End: October 19, 2024 Team Status: Inactive Member Role/Relationship Status Dates Dr. Cheikh Pinto MD Primary Care Provider Active Start: December 21, 2024 End: December 21, 2024 Dr. Cheikh Pinto MD Attending Provider Active Start: December 21, 2024 End: December 21, 2024 Lab Aid Relationship Specialty Start Date End Date Cheikh Pinto MD PCP - General Internal Medicine 02/19/18 Team Status: Active Member Role/Relationship Status Dates Dr. Cheikh Pinto MD Primary care physician Active Team Status: Inactive Member Role/Relationship Status Dates Dr. Cheikh Pinto MD Primary care physician Active Start: December 21, 2024 End: December 21, 2024 Dr. Cheikh Pinto MD Attending physician Active Start: December 21, 2024 End: December 21, 2024 Team Status: Inactive Member Role/Relationship Status Dates Dr. Cheikh Pinto MD Primary care physician Active Start: February 03, 2025 End: February 03, 2025 Dr. Cheikh Pinto MD Attending physician Active Start: February 03, 2025 End: February 03, 2025 Source Comments (unrecognize d section and content) In the event this informatio n is protected by the Federal Confidentiality of Alcohol and Drug Abuse Patient Records regulations: The Federal rules restrict any use of the information to criminally investigate or prosecute any alcohol or drug abuse patient.[facility] the event this information is protected by the Federal Confidentiality of Alcohol and Drug Abuse Patient Records regulations: The Federal rules restrict any use of the information to criminally investigate or prosecute any alcohol or drug abuse patient.[facility] Hospital[facility] the event this information is protected by the Federal Confidentiality of Alcohol and Drug Abuse Patient Records regulations: The Federal rules restrict any use of the information to criminally investigate or prosecute any alcohol or drug abuse patient.[facility] HospitalIn the event this information is protected by the Federal Confidentiality of Alcohol and Drug Abuse Patient Records regulations: The Federal rules restrict any use of the information to criminally investigate or prosecute any alcohol or drug abuse patient.[facility] HospitalIn the event this information is protected by the Federal Confidentiality of Alcohol and Drug Abuse Patient Records regulations: The Federal rules restrict any use of the information to criminally investigate or prosecute any alcohol or drug abuse patient.[facility] Hospital[facility] the event this information is protected by the Federal Confidentiality of Alcohol and Drug Abuse Patient Records regulations: The Federal rules restrict any use of the information to criminally investigate or prosecute any alcohol or drug abuse patient.[facility] HospitalIn the event this information is protected by the Federal Confidentiality of Alcohol and Drug Abuse Patient Records regulations: The Federal rules restrict any use of the information to criminally investigate or prosecute any alcohol or drug abuse patient.[facility] Hospital[facility] the event this information is protected by the Federal Confidentiality of Alcohol and Drug Abuse Patient Records regulations: The Federal rules restrict any use of the information to criminally investigate or prosecute any alcohol or drug abuse patient.[facility] HospitalIn the event this information is protected by the Federal Confidentiality of Alcohol and Drug Abuse Patient Records regulations: The Federal rules restrict any use of the information to criminally investigate or prosecute any alcohol or drug abuse patient.[facility] HospitalIn the event this information is protected by the Federal Confidentiality of Alcohol and Drug Abuse Patient Records regulations: The Federal rules restrict any use of the information to criminally investigate or prosecute any alcohol or drug abuse patient.[facility] HospitalIn the event this information is protected by the Federal Confidentiality of Alcohol and Drug Abuse Patient Records regulations: The Federal rules restrict any use of the information to criminally investigate or prosecute any alcohol or drug abuse patient.[facility] Reason for Visit (unrecogniz ed section and content) Reason Comments Gastroparesis Reason Comments Patient Update Patient Question Reason Comments Received Outside Medical Records Reason Comments Establish Care Follow up Reason Comments Results - Ct Reason Comments Consult Reason Comments Appointment Reason Comments Recheck FOR RECORDS PERTAINING TO PATIENTS WHO ARE OR HAVE BEEN ENROLLED IN A CHEMICAL DEPENDENCY/SUBSTANCEABUSE PROGRAM, SOME INFORMATION MAY BE OMITTED. This clinical summary was aggregated from multiple sources. Caution should be exercised in using it in the provision of clinical care. This summary normalizes information from multiple sources, and as a consequence, information in this document may materially change the coding, format and clinical context of patient data. In addition, data may be omitted in some cases. CLINICAL DECISIONS SHOULD BE BASED ON THE PRIMARY CLINICAL RECORDS. [facility] [employer] [facility] provides no warranty or guarantee of the accuracy or completeness of information in this document.
[2025-03-09 07:57] VITALS: BP 140/77; PULSE 55; RESP 16; TEMP 36.1; O2SAT 99; BMI 26.5
[2025-03-09 08:56] LABS: CORTISOL AM 11.30 ug/dL (6.02-18.40); Free T3 2.5 pg/mL (2.18-3.98)
[2025-03-09 09:07] VITALS: BP 140/81; PULSE 57; RESP 16; TEMP 36
[2025-03-09 09:12] LABS: CORTISOL AM 24.30 ug/dL (6.02-18.40)
[2025-03-09 10:00] LABS: CORTISOL AM 25.40 ug/dL (6.02-18.40)
== END 2025-03-09 23:59 | disposition home or self-care (01) ==
LOC: MEDOUTP 07:29
PROVIDERS: PCP Internal Medicine; Referring Provider Internal Medicine; Visit Provider Internal Medicine
DX: E27.1 Primary adrenocortical insufficiency (principal)
CPT/HCPCS: 36415; 82533; 84439; 84443; 84481; 96372; J0834

== ENCOUNTER → 2025-04-02 | Outpatient (CLI) | payer MEDICARE, SELFPAY ==
--- NOTE | 2025-04-02 07:05 | MRI_ITS ---
PROCEDURE: BRAIN W/WO CONTRAST 04/02/2025 REASON FOR EXAM: ABNORMAL PET, POSSIBLE NET PITUITARY TECHNIQUE: Procedure Code: MRIBRWW Modality: MR Procedure: BRAIN/PITUITARY WITH/WITHOUT CONTRAST Multiplanar and multisequence images were obtained. CONTRAST: Clariscan VOLUME: 13 mL COMPARISON: None available. FINDINGS: The pituitary gland is within normal limits of size and contour for age and gender. The normal intrinsic pituitary bright spot is visualized. The pituitary gland enhances overall uniformly. There is no suprasellar extension of the pituitary gland or proximity to the optic apparatus. The pituitary stalk is normal in thickness and midline. The cavernous internal carotid artery flow voids are maintained. No acute infarct or hemorrhage.Scattered nonspecific foci of periventricular and subcortical T2/FLAIR white matter hyperintensities in the cerebral hemispheres likely reflect chronic microvascular ischemic changes. No abnormal intracranial enhancement. No extra-axial fluid collection. No significant mass effect or herniation of the brain. The ventricular system and sulci/fissures are within expected limits of size and configuration for the patient's stated age. The intracranial large vessel arterial flow voids are maintained. The mastoid air cells clear. The paranasal sinuses are predominately clear. Bilateral ocular lens replacements. The calvarial bone marrow signal is within normal limits. MRI/Brain W/WO Contrast IMPRESSION: No abnormal enhancement of the pituitary gland. No acute infarct, hemorrhage, significant mass effect, or intracranial enhancing lesion. Reading Location: [id number]
--- OUTSIDE RECORDS SUMMARY | 2025-04-02 07:05 | XMS RPT_ITS | CCD ---
Author Organization [facility] Care Team Providers Care Game Programmer Name Role Phone Dr. Cheikh Pinto Primary Care Provider Dr. Cheikh Pinto Attending Provider Cheikh Pinto MD Primary Care Provider [phone] Dr. Cheikh Pinto Primary Care Provider Dr. Cheikh Pinto Attending Provider Dr. Cheikh Pinto Primary Care Provider Dr. Cheikh Pinto Attending Provider Cheikh Pinto MD Primary Care Provider MATT KAT Attending Unavailable CHEIKH PINTO Primary Care Unavailable BINA OVERTON Referring Unavailable Dr. Cheikh Pinto MD Primary Care Provider [phone] Dr. Cheikh Pinto MD Attending Provider THERESA [...] Consulting Unavailable PROVIDER, UNKNOWN Consulting Unavailable JUDI, CHEKIH M Consulting Unavailable JUDI, CHEIKH M Referring [...] Physician Judi JUNIOR, Dr. Hollingsworth Attending Physician [phone] Allergies Allergy Classification Reported Allergen(s) Allergy Type Date of Onset Reaction(s) Facility (20 sources) Aspirin; Translations: [ASPIRIN] Drug Allergy 08-29-19 13 Other: See Comments [facility] (20 sources) Sulfamethoxazole; Translations: [SULFAMETHOXAZOLE] Drug Allergy 02-27-20 13 Swelling [facility] (9 sources) Trimethoprim Drug Allergy 01-25-20 21 [facility] (14 sources) Sulfonamides (Antibiotic); Translations: [SULFA (SULFONAMIDE ANTIBIOTICS)] Drug Allergy 05-28-19 14 [facility] (7 sources) Sulfonamides (Antibiotic) Allergy to substance 11-11-19 23 [facility] (1 source) Aspirin Drug Allergy 02-04-20 25 [facility] (1 source) Sulfamethoxazole Drug Allergy 02-04-20 25 [facility] (1 source) Sulfonamides (Antibiotic) Drug allergy (disorder) 02-04-20 25 [facility] (1 source) Trimethoprim Drug Allergy 02-04-20 25 [facility] (1 source) Aspirin Drug Allergy [facility] (1 source) Sulfamethoxazole / Trimethoprim Drug Allergy [facility] (1 source) Sulfonamides (Antibiotic) Drug allergy (disorder) [facility] Rep[facility] Medications Current Medications Medication Drug Class(es) [...] times daily as needed. polyethylene glycol 3350 23629 mg powder for oral solution (1 source) [...] brian th twice daily. lactobacillus rhamnosus gg [id number] unt oral capsule (11 sources) Start: 08-29-19 [...] 1 tablet by brian th twice daily. [place]-3 Fatty Acids 500 mg cap (11 sources) End: 12-29-2024 take 1 capsule by mouth once daily [place]-3 Fatty Acids 500 mg cap Take 500 mg by mouth once daily. 12/29/2024 Discontinued take 1 capsule by mouth once lucia ly [place]-3 Fatty Acids 500 mg cap Take 500 mg by mouth once daily. Active take 1 capsule by mouth once lucia ly [place]-3 Fatty Acids 500 mg cap Take 500 mg by mouth once daily. 0 Active Comment on above: Take 500 mg by mouth once daily. [place]-3 Fatty Acids-Fish Oil (Fish Oil) 300-500 mg capsule (3 sources) Start: 02-24-2024 End: 10-19-2024 [place]-3 Fatty Acids-Fish Oil (Fish Oil) 300-500 mg capsule Discontinued NMA PO February 24, 2024 12:00am October 19, 2024 1:06pm Start: 02-24-2024 End: 10-19-2024 [place]-3 Fatty Acids-Fish Oil (Fish Oil) 300-500 mg [...] 11-08-2018 Chronic Other aftercare (1 source) Other usp (current) drug therapy; Translations: [Other usp (current) drug therapy] Onset: 5 Episodic Other [...] 02-18 Chromogranin A 2408.0 ng/mL High <187.0 [facility] Comment on above: Result Comment: The Chromogranin A test was performed using the [facility] CgA II KRYPTORmethod. Results obtained with different assay methods or kits cannot beused interchangeably.[facility] [place], [place] [address]TyhgziIvan III, M.D.[id number] Performed By: #### 2 66148 ####[address] [address] CBC + DIFFon 02-16-2025 Baso # 0.03 x10EE3/UL Normal 0.00 - 0.10 [facility] Comment on above: Performed By: #### 2 65560 ####[facility],[address] [place] [address] 37466 Basophils/100 WBC (Bld) 0.5 % Normal 0.0 - 2.0 [facility] Comment on above: Performed By: #### 2 21738 ####[facility],[address] [place] [address] 59200 CBC + DIFF Normal [facility] Comment on above: Result Comment: CBC- COMPLETE BLOOD COUNT Performed By: #### 2 08516 ####[facility],[address] [place] [address] 63170 EO # 0.27 x10EE3/UL Normal 0.00 - 0.50 [facility] Comment on above: Performed By: #### 2 78730 ####[facility],[address] [place] [address] 23683 Eosinophils/100 WBC (Bld) 5.4 % Normal 0.0 - 7.0 [facility] Comment on above: Performed By: #### 2 97408 ####[facility],[address] [place] [address] Erythrocyte distribution width (RBC) [Ratio] 13.7 % Normal 12.0 - 15.6 [facility] Comment on above: Performed By: #### 2 17172 ####[facility],[address] [place] [address] Hematocrit (Bld) [Volume fraction] 39.1 % Normal 34.0 - 46.0 [facility] Comment on above: Performed By: #### 2 29678 ####[facility],[address] [place] [address] Hemoglobin (Bld) [Mass/Vol] 12.7 g/dL Normal 12.0 - 16.0 [facility] Comment on above: Result Comment: TEST REPEATED Performed By: #### 2 60879 ####[facility],[address] [place] [address] Lymph # 1.20 x10EE3/UL Normal 0.80 - 2.80 [facility] Comment on above: Performed By: #### 2 83102 ####[facility],[address] [place] [address] Lymphocytes/100 WBC (Bld) 24.2 % Normal 20.0 - 45.0 [facility] Comment on above: Performed By: #### 2 37244 ####[facility],[address] [place], [place] [id number] MANUAL DIFF N/A Normal [facility] Comment on above: Performed By: #### 2 71578 ####[place] [address]984 MCH (RBC) [Entitic mass] 28 pg Normal 27 - 33 [facility] Comment on above: Performed By: #### 2 59065 ####[place] [address] MCHC 33 X10 3 Normal 32 - 36 [facility] Comment on above: Performed By: #### 2 97672 ####[facility],[address] [place], [place] [id number] MCV (RBC) [Entitic vol] 86 fL Normal 80 - 99 [facility] Comment on above: Performed By: #### 2 77092 ####[facility],[address] [place] [address] Merrick # 0.35 x10EE3/UL Normal 0.20 - 1.00 [facility] Comment on above: Performed By: #### 2 58996 ####[facility],[address] [place] [address] MONOS % 7.0 % Normal 0.0 - 10.0 [facility] Comment on above: Performed By: #### 2 84963 ####[facility],[address] [place] [address] Morphology Julian (Bld) [Interp] N/A Normal [facility] Comment on above: Performed By: #### 2 27273 ####[facility],[address] [place] [address] Neut # 3.13 x10EE3/UL Normal 1.50 - 7.10 [facility] Comment on above: Performed By: #### 2 02064 ####[facility],[address] [place], [place] [address] Neutrophils/100 WBC (Bld) 62.9 % Normal 46.0 - 76.0 [facility] Comment on above: Performed By: #### 2 31525 ####[facility],[address] [place] [address] 80306 PLATELET 222 x10EE3/UL Normal 150 - 450 [facility] Comment on above: Performed By: #### 2 24557 ####[facility],[address] [place] [address] 71695 Platelet mean volume (Bld) [Entitic vol] 8.1 fL Normal 6.6 - 10.5 [facility] Comment on above: Result Comment: AUTO MATED DIFFERENTIAL Performed By: #### 2 18160 ####[facility],[address] [place] [address] 99427 RBC 4.55 x 10EE6/UL Normal 4.10 - 5.30 [facility] Comment on above: Performed By: #### 2 40249 ####[facility],[address] [place] [address] 54070 WBC 5.0 x 10EE3/UL Normal 4.5 - 10.8 [facility] Comment on above: Performed By: #### 2 81710 ####[facility],[address] [place] [address] 41900 CMP with eGFRon 02-16-2025 AGE 75 years Normal [facility] Comment on above: Performed By: #### 2 47433 ####[facility],[address] [place] [address] 56174 Albumin [Mass/Vol] 2.9 g/dL Low 3.4 - 5.0 [facility] Comment on above: Performed By: #### 2 22300 ####[facility],[address] [place] [address] 71376 Albumin/Globulin [Mass ratio] 1.0 {ratio} Normal 0.9 - 1.6 [facility] Comment on above: Performed By: #### 2 06690 ####[facility],[address] [place] [address] 64714 ALK PHOS 82 U/L Normal 46 - 116 [facility] Comment on above: Performed By: #### 2 93213 ####[facility],[address] [place] [address] 92387 ALT [Catalytic activity/Vol] 15 U/L Low 16 - 63 [facility] Comment on above: Performed By: #### 2 52388 ####[facility],[address] [place] [address] 18969 Anion gap [Moles/Vol] 13 mmol/L Normal 10 - 20 [facility] Comment on above: Performed By: #### 2 02216 ####[facility],[address] [place] [address] 70649 AST [Catalytic activity/Vol] 14 U/L Normal 13 - 39 [facility] Comment on above: Performed By: #### 2 30481 ####[facility],[address] [place] [address] 26721 B/C RATIO 12 ratio Normal 0 - 30 [facility] Comment on above: Performed By: #### 2 37862 ####[facility],[address] [place] [address] 83588 Bilirubin [Mass/Vol] 0.3 mg/dL Normal 0.2 - 1.0 [facility] Comment on above: Performed By: #### 2 67091 ####[facility],[address] [place] [address] 64719 Calcium [Mass/Vol] 9.3 mg/dL Normal 8.5 - 10.1 [facility] Comment on above: Result Comment: RESU LTS VERIFIED BY REPEAT ANALYSIS Performed By: #### 2 56457 ####[facility],[address] [place] [address] 88447 Chloride [Moles/Vol] 107 mmol/L Normal 98 - 107 [facility] Comment on above: Performed By: #### 2 93317 ####[facility],[address] [place] [address] 75440 CMP with eGFR Normal [facility] Comment on above: Result Comment: COMP REHENSIVE METABOLIC PANEL Performed By: #### 2 87332 ####[facility],[address] [place] [address] 12581 CO2 [Moles/Vol] 23.8 mmol/L Normal 21.0 - 32.0 [facility] Comment on above: Performed By: #### 2 59553 ####[facility],[address] [place] [address] 67749 Creatinine [Mass/Vol] 0.94 mg/dL Normal 0.55 - 1.02 [facility] Comment on above: Performed By: #### 2 08017 ####[facility],[address] [place] [address] 06569 eGFR 58 ML/MINUTE Low 60 - 999 [facility] Comment on above: Performed By: #### 2 04774 ####[facility],[address] [place] [address] 70076 GFR/1.73 sq M.predicted among non-blacks MDRD (S/P/Bld) [Vol rate/Area] mL/min/{1.73_m2} Normal 60 - 999 [facility] Comment on above: Result Comment: ACCO RDING TO THE NATIONAL KIDNEY DISEASE EDUCATION PROGRAM(NKDE), A NORMAL eGFRIS A VALUE GREATER THAN OR EQUAL TO 60 ML/MIN/1.73 SQ METERS.CHRONIC KIDNEY DISEASE: <60mL/MIN/1.73 SQ METERSKIDNEY FAILURE: <15mL/MIN/1.73 SQ METERSTHIS TEST SHOULD ONLY BE USED FOR PATIENTS 18 YEARS OF AGE AND OLDER. Performed By: #### 2 41508 ####[facility],[address] [place] [address] 46100 Globulin (S) [Mass/Vol] 3.0 g/dL Normal 1.5 - 3.8 [facility] Comment on above: Performed By: #### 2 53919 ####[facility],[address] [place] [address] 09254 Glucose [Mass/Vol] 99 mg/dL Normal 74 - 106 [facility] Comment on above: Performed By: #### 2 68969 ####[facility],[address] [place] [address] 18084 Potassium [Moles/Vol] 4.2 mmol/L Normal 3.5 - 5.1 [facility] Comment on above: Performed By: #### 2 67369 ####[facility],[address] [place] [address] 01680 Protein [Mass/Vol] 5.9 g/dL Low 6.4 - 8.2 [facility] Comment on above: Performed By: #### 2 00287 ####[facility],[address] [place] [address] 03746 Sodium [Moles/Vol] 140 mmol/L Normal 136 - 145 [facility] Comment on above: Performed By: #### 2 70345 ####[facility],[address] [place] [address] 64425 Urea nitrogen [Mass/Vol] 11 mg/dL Normal 7 - 18 [facility] Comment on above: Performed By: #### 2 32810 ####[facility],[address] [place] [address] 19522 MAGNESIUMon 02-16-2025 Magnesium [Mass/Vol] 1.8 mg/dL Normal 1.8 - 2.4 [facility] Comment on above: Performed By: #### 2 00668 ####[facility],[address] [place] [address] 19333 C-REACTIVE PROTEINon 025 CRP 0.09 mg/dl Normal 0.00 - 0.90 [facility] Comment on above: Performed By: #### 2 40740 ####[facility],[address] [place] [address] 99675 CgA SerPl-mCncon 02-15-2025 Chromogranin A [Mass/Vol] 2408.0 ng/mL High <187.0 [facility] Comment on above: Order Comment: Speci men Type: BLOOD SPECIMEN Ordering Facility: [facility] Address: [address] [place] [address] Result Comment: The Chromogranin A test was performed using the [employer] CgA II KRYPTOR method. Results obtained with different assay methods or kits cannot be used interchangeably. Performed By: #### 9 811-1 #### [facility] CLIA [id number] [address] [place] [address] [place] ED MED ADMINISTRATION DETAIL on 02-15-2025 ED MED ADMINISTRATION DETAIL Normal [facility] ED NURSES CLINICAL NOTEon ED NURSES CLINICAL NOTE Normal [facility] ED ORDER SHEET (CPOE ONLY)on 02-15-2025 ED ORDER SHEET (CPOE ONLY) Normal [facility] ED PHYSICIAN CLINICAL REPORT on 02-15-2025 ED PHYSICIAN CLINICAL REPORT Normal [facility] ED SUPER BILLon 02-15-2025 ED SUPER BILL Normal [facility] ED VISIT SUMMARYon ED VISIT SUMMARY Normal [facility] ED VITALS FLOW SHEETon 02-15 ED VITALS FLOW SHEET Normal [facility] MAGNESIUMon 02-15-2025 Magnesium [Mass/Vol] 1.5 mg/dL Low 1.8 - 2.4 [facility] Comment on above: Performed By: #### 2 02722 ####[facility],[address] [place] [address] 73637 SEDRATEon 02-15-2025 SEDRATE 9 mm/hr Normal 0 - 30 [facility] Comment on above: Performed By: #### 2 03904 ####[facility],[address] [place] [address] 74788 CBC + DIFFon 02-14-2025 Baso # 0.04 x10EE3/UL Normal 0.00 - 0.10 [facility] Comment on above: Performed By: #### 2 37558 ####[facility],[address] [place] [address] 71627 Basophils/100 WBC (Bld) 0.6 % Normal 0.0 - 2.0 [facility] Comment on above: Performed By: #### 2 45242 ####[facility],[address] [place] [address] 82188 CBC + DIFF Normal [facility] Comment on above: Result Comment: CBC- COMPLETE BLOOD COUNT Performed By: #### 2 03220 ####[place] [address] EO # 0.13 x10EE3/UL Normal 0.00 - 0.50 [facility] Comment on above: Performed By: #### 2 06854 ####[place] [address] Eosinophils/100 WBC (Bld) 2.1 % Normal 0.0 - 7.0 [facility] Comment on above: Performed By: #### 2 04579 ####[place] [address] Erythrocyte distribution width (RBC) [Ratio] 13.9 % Normal 12.0 - 15.6 [facility] Comment on above: Performed By: #### 2 41747 ####[place] [address] Hematocrit (Bld) [Volume fraction] 48.6 % High 34.0 - 46.0 [facility] Comment on above: Performed By: #### 2 93037 ####[place] [address] Hemoglobin (Bld) [Mass/Vol] 16.1 g/dL High 12.0 - 16.0 [facility] Comment on above: Performed By: #### 2 33757 ####[place] [id number] Lymph # 1.26 x10EE3/UL Normal 0.80 - 2.80 [facility] Comment on above: Performed By: #### 2 97621 ####[place] [address] Lymphocytes/100 WBC (Bld) 19.7 % Low 20.0 - 45.0 [facility] Comment on above: Performed By: #### 2 59296 ####[address] [address] MANUAL DIFF N/A Normal [facility] Comment on above: Performed By: #### 2 03756 ####[facility],[address] [place] [address] MCH (RBC) [Entitic mass] 28 pg Normal 27 - 33 [facility] Comment on above: Performed By: #### 2 94259 ####[facility],[address] [place] [address] MCHC 33 X10 3 Normal 32 - 36 [facility] Comment on above: Performed By: #### 2 36001 ####[facility],[address] [place] [address] MCV (RBC) [Entitic vol] 85 fL Normal 80 - 99 [facility] Comment on above: Performed By: #### 2 11208 ####[place] [address] Merrick # 0.49 x10EE3/UL Normal 0.20 - 1.00 [facility] Comment on above: Performed By: #### 2 91894 ####[place] [address] MONOS % 7.6 % Normal 0.0 - 10.0 [facility] Comment on above: Performed By: #### 2 58473 ####[facility],[address] [place] [address] Morphology Julian (Bld) [Interp] N/A Normal [facility] Comment on above: Performed By: #### 2 64824 ####[place] [address] Neut # 4.49 x10EE3/UL Normal 1.50 - 7.10 [facility] Comment on above: Performed By: #### 2 48913 ####[place] [address] Neutrophils/100 WBC (Bld) 70.1 % Normal 46.0 - 76.0 [facility] Comment on above: Performed By: #### 2 05188 ####[facility],[address] [place] [address] 96716 PLATELET 303 x10EE3/UL Normal 150 - 450 [facility] Comment on above: Performed By: #### 2 40743 ####[facility],[address] [place] [address] 67353 Platelet mean volume (Bld) [Entitic vol] 7.9 fL Normal 6.6 - 10.5 [facility] Comment on above: Result Comment: AUTO MATED DIFFERENTIAL Performed By: #### 2 17668 ####[facility],[address] [place] [address] 53603 RBC 5.74 x 10EE6/UL High 4.10 - 5.30 [facility] Comment on above: Performed By: #### 2 99095 ####[facility],[address] [place] [address] 02025 WBC 6.4 x 10EE3/UL Normal 4.5 - 10.8 [facility] Comment on above: Performed By: #### 2 39770 ####[facility],[address] [place] [address] 92861 CMP with eGFRon 02-14-2025 AGE 75 years Normal [facility] Comment on above: Performed By: #### 2 61937 ####[facility],[address] [place] [address] 66011 Albumin [Mass/Vol] 4.2 g/dL Normal 3.4 - 5.0 [facility] Comment on above: Performed By: #### 2 79189 ####[facility],[address] [place] [address] 35229 Albumin/Globulin [Mass ratio] 1.1 {ratio} Normal 0.9 - 1.6 [facility] Comment on above: Performed By: #### 2 39539 ####[facility],[address] [place] [address] 93846 ALK PHOS 109 U/L Normal 46 - 116 [facility] Comment on above: Performed By: #### 2 75141 ####[facility],[address] [place] [address] 21335 ALT [Catalytic activity/Vol] 28 U/L Normal 16 - 63 [facility] Comment on above: Performed By: #### 2 65869 ####[facility],[address] [place] [address] 45573 Anion gap [Moles/Vol] 14 mmol/L Normal 10 - 20 [facility] Comment on above: Performed By: #### 2 50145 ####[facility],[address] [place] [address] 31833 AST [Catalytic activity/Vol] 20 U/L Normal 13 - 39 [facility] Comment on above: Performed By: #### 2 70999 ####[facility],[address] [place] [address] 24488 B/C RATIO 8 ratio Normal 0 - 30 [facility] Comment on above: Performed By: #### 2 54478 ####[facility],[address] [place] [address] 55367 Bilirubin [Mass/Vol] 0.5 mg/dL Normal 0.2 - 1.0 [facility] Comment on above: Performed By: #### 2 91472 ####[facility],[address] [place] [address] 81413 Calcium [Mass/Vol] 10.4 mg/dL High 8.5 - 10.1 [facility] Comment on above: Performed By: #### 2 15233 ####[facility],[address] [place] [address] 65783 Chloride [Moles/Vol] 98 mmol/L Normal 98 - 107 [facility] Comment on above: Performed By: #### 2 23389 ####[facility],[address] [place] [address] 29814 CMP with eGFR Normal [facility] Comment on above: Result Comment: COMP REHENSIVE METABOLIC PANEL Performed By: #### 2 65428 ####[facility],[address] [place] [address] 65881 CO2 [Moles/Vol] 28.6 mmol/L Normal 21.0 - 32.0 [facility] Comment on above: Performed By: #### 2 46718 ####[facility],[address] [place] [address] 64266 Creatinine [Mass/Vol] 1.47 mg/dL High 0.55 - 1.02 [facility] Comment on above: Performed By: #### 2 14237 ####[facility],[address] [place] [address] 21115 eGFR 35 ML/MINUTE Low 60 - 999 [facility] Comment on above: Performed By: #### 2 01603 ####[facility],[address] [place] [address] 85535 eGFR(AA) 42 ML/MINUTE Low 60 - 999 [facility] Comment on above: Result Comment: ACCO RDING TO THE NATIONAL KIDNEY DISEASE EDUCATION PROGRAM(NKDE), A NORMAL eGFRIS A VALUE GREATER THAN OR EQUAL TO 60 ML/MIN/1.73 SQ METERS.CHRONIC KIDNEY DISEASE: <60mL/MIN/1.73 SQ METERSKIDNEY FAILURE: <15mL/MIN/1.73 SQ METERSTHIS TEST SHOULD ONLY BE USED FOR PATIENTS 18 YEARS OF AGE AND OLDER. Performed By: #### 2 73784 ####[facility],[address] [place] [address] 45415 Globulin (S) [Mass/Vol] 3.9 g/dL High 1.5 - 3.8 [facility] Comment on above: Performed By: #### 2 76458 ####[facility],[address] [place] [address] 35706 Glucose [Mass/Vol] 111 mg/dL High 74 - 106 [facility] Comment on above: Performed By: #### 2 67849 ####[facility],[address] [place] [address] 09987 Potassium [Moles/Vol] 3.8 mmol/L Normal 3.5 - 5.1 [facility] Comment on above: Performed By: #### 2 83529 ####[facility],[address] [place], [place] [address] Protein [Mass/Vol] 8.1 g/dL Normal 6.4 - 8.2 [facility] Comment on above: Performed By: #### 2 49228 ####[facility],[address] [place] [address] 51479 Sodium [Moles/Vol] 137 mmol/L Normal 136 - 145 [facility] Comment on above: Performed By: #### 2 93892 ####[facility],[address] [place] [address] Urea nitrogen [Mass/Vol] 12 mg/dL Normal 7 - 18 [facility] Comment on above: Performed By: #### 2 31089 ####[facility],[address] [place], [place] [address] CT ABDOMEN/PELVIS Won 2024 CT ABDOMEN/PELVIS W Normal [facility] ED MED ADMINISTRATION DETAIL on 02-13-2025 ED MED ADMINISTRATION DETAIL Normal [facility] ED NURSES CLINICAL NOTEon ED NURSES CLINICAL NOTE Normal [facility] ED ORDER SHEET (CPOE ONLY)on 02-13-2025 ED ORDER SHEET (CPOE ONLY) Normal [facility] ED PHYSICIAN CLINICAL REPORT on 02-13-2025 ED PHYSICIAN CLINICAL REPORT Normal [facility] ED SUPER BILLon 02-13-2025 ED SUPER BILL Normal [facility] ED VISIT SUMMARYon ED VISIT SUMMARY Normal [facility] ED VITALS FLOW SHEETon 02-13 ED VITALS FLOW SHEET Normal [facility] ABDOMEN 2 VIEWSon 02-10-2025 ABDOMEN 2 VIEWS Normal [facility] CBC + DIFFon 02-10-2025 Baso # 0.04 x10EE3/UL Normal 0.00 - 0.10 [facility] Comment on above: Performed By: #### 2 75228 ####[facility],[address] [place] [address] 35194 Basophils/100 WBC (Bld) 0.5 % Normal 0.0 - 2.0 [facility] Comment on above: Performed By: #### 2 23220 ####[facility],[address] [place] [address] 63540 CBC + DIFF Normal [facility] Comment on above: Result Comment: CBC- COMPLETE BLOOD COUNT Performed By: #### 2 08344 ####[facility],[address] [place] [address] 26785 EO # 0.08 x10EE3/UL Normal 0.00 - 0.50 [facility] Comment on above: Performed By: #### 2 12331 ####[facility],[address] [place] [address] 89694 Eosinophils/100 WBC (Bld) 0.8 % Normal 0.0 - 7.0 [facility] Comment on above: Performed By: #### 2 46201 ####[facility],[address] [place] [address] 34244 Erythrocyte distribution width (RBC) [Ratio] 13.9 % Normal 12.0 - 15.6 [facility] Comment on above: Performed By: #### 2 70241 ####[facility],[address] [place] [address] 58103 Hematocrit (Bld) [Volume fraction] 51.4 % High 34.0 - 46.0 [facility] Comment on above: Performed By: #### 2 44217 ####[facility],[address] [place] [address] 57035 Hemoglobin (Bld) [Mass/Vol] 17.3 g/dL High 12.0 - 16.0 [facility] Comment on above: Performed By: #### 2 04344 ####[facility],[address] [place] [address] Lymph # 1.04 x10EE3/UL Normal 0.80 - 2.80 [facility] Comment on above: Performed By: #### 2 82252 ####[facility],[address] [place] [address] Lymphocytes/100 WBC (Bld) 10.8 % Low 20.0 - 45.0 [facility] Comment on above: Performed By: #### 2 93882 ####[facility],[address] [place] [address] MANUAL DIFF N/A Normal [facility] Comment on above: Performed By: #### 2 52263 ####[facility],[address] [place] [address] MCH (RBC) [Entitic mass] 28 pg Normal 27 - 33 [facility] Comment on above: Performed By: #### 2 82026 ####[place] [address] MCHC 34 X10 3 Normal 32 - 36 [facility] Comment on above: Performed By: #### 2 82384 ####[facility],[address] [place] [address] MCV (RBC) [Entitic vol] 84 fL Normal 80 - 99 [facility] Comment on above: Performed By: #### 2 54031 ####[facility],[address] [place] [address] Merrick # 0.64 x10EE3/UL Normal 0.20 - 1.00 [facility] Comment on above: Performed By: #### 2 59557 ####[facility],[address] [place] [address] MONOS % 6.7 % Normal 0.0 - 10.0 [facility] Comment on above: Performed By: #### 2 30818 ####[facility],[address] [place] [address] 10480 Morphology Julian (Bld) [Interp] N/A Normal [facility] Comment on above: Performed By: #### 2 66650 ####[facility],[address] [place] [address] 52089 Neut # 7.76 x10EE3/UL High 1.50 - 7.10 [facility] Comment on above: Performed By: #### 2 62962 ####[facility],[address] [place] [address] Neutrophils/100 WBC (Bld) 81.2 % High 46.0 - 76.0 [facility] Comment on above: Performed By: #### 2 62976 ####[facility],[address] [place] [address] PLATELET 316 x10EE3/UL Normal 150 - 450 [facility] Comment on above: Performed By: #### 2 03699 ####[facility],[address] [place] [address] Platelet mean volume (Bld) [Entitic vol] 7.8 fL Normal 6.6 - 10.5 [facility] Comment on above: Result Comment: AUTO MATED DIFFERENTIAL Performed By: #### 2 55718 ####[facility],[address] [place] [address] 40213 RBC 6.10 x 10EE6/UL High 4.10 - 5.30 [facility] Comment on above: Performed By: #### 2 42873 ####[place] [id number] WBC 9.6 x 10EE3/UL Normal 4.5 - 10.8 [facility] Comment on above: Performed By: #### 2 21048 ####[facility],[address] [place], [place] [id number] CMP with eGFRon 02-10-2025 AGE 75 years Normal [facility] Comment on above: Performed By: #### 2 24643 ####[facility],[address] [place] [address] 05473 Albumin [Mass/Vol] 4.1 g/dL Normal 3.4 - 5.0 [facility] Comment on above: Performed By: #### 2 11286 ####[facility],[address] [place] [address] Albumin/Globulin [Mass ratio] 1.0 {ratio} Normal 0.9 - 1.6 [facility] Comment on above: Performed By: #### 2 11349 ####[facility],[address] [place] [address] 75473 ALK PHOS 106 U/L Normal 46 - 116 [facility] Comment on above: Performed By: #### 2 65710 ####[facility],[address] [place], [place] [id number] ALT [Catalytic activity/Vol] 25 U/L Normal 16 - 63 [facility] Comment on above: Performed By: #### 2 58705 ####[facility],[address] [place] [address] 48830 Anion gap [Moles/Vol] 19 mmol/L Normal 10 - 20 [facility] Comment on above: Performed By: #### 2 76333 ####[facility],[address] [place] [address] 62244 AST [Catalytic activity/Vol] 22 U/L Normal 13 - 39 [facility] Comment on above: Performed By: #### 2 50825 ####[facility],[address] [place] [address] 01287 B/C RATIO 16 ratio Normal 0 - 30 [facility] Comment on above: Performed By: #### 2 63679 ####[facility],[address] [place] [address] 49512 Bilirubin [Mass/Vol] 0.6 mg/dL Normal 0.2 - 1.0 [facility] Comment on above: Performed By: #### 2 16381 ####[facility],[address] [place] [address] 03337 Calcium [Mass/Vol] 10.1 mg/dL Normal 8.5 - 10.1 [facility] Comment on above: Performed By: #### 2 14282 ####[facility],[address] [place] [address] 08056 Chloride [Moles/Vol] 97 mmol/L Low 98 - 107 [facility] Comment on above: Performed By: #### 2 90268 ####[facility],[address] [place] [address] 35738 CMP with eGFR Normal [facility] Comment on above: Result Comment: COMP REHENSIVE METABOLIC PANEL Performed By: #### 2 92866 ####[facility],[address] [place] [address] 07810 CO2 [Moles/Vol] 23.2 mmol/L Normal 21.0 - 32.0 [facility] Comment on above: Performed By: #### 2 91219 ####[facility],[address] [place] [address] 10699 Creatinine [Mass/Vol] 1.35 mg/dL High 0.55 - 1.02 [facility] Comment on above: Performed By: #### 2 09942 ####[facility],[address] [place] [address] 96518 eGFR 38 ML/MINUTE Low 60 - 999 [facility] Comment on above: Performed By: #### 2 29963 ####[facility],[address] [place] [address] 48499 eGFR(AA) 46 ML/MINUTE Low 60 - 999 [facility] Comment on above: Result Comment: ACCO RDING TO THE NATIONAL KIDNEY DISEASE EDUCATION PROGRAM(NKDE), A NORMAL eGFRIS A VALUE GREATER THAN OR EQUAL TO 60 ML/MIN/1.73 SQ METERS.CHRONIC KIDNEY DISEASE: <60mL/MIN/1.73 SQ METERSKIDNEY FAILURE: <15mL/MIN/1.73 SQ METERSTHIS TEST SHOULD ONLY BE USED FOR PATIENTS 18 YEARS OF AGE AND OLDER. Performed By: #### 2 52535 ####[facility],[address] [place] [address] 80251 Globulin (S) [Mass/Vol] 4.2 g/dL High 1.5 - 3.8 [facility] Comment on above: Performed By: #### 2 60666 ####[facility],[address] [place] [address] 95623 Glucose [Mass/Vol] 114 mg/dL High 74 - 106 [facility] Comment on above: Performed By: #### 2 29427 ####[address] [address] Potassium [Moles/Vol] 3.9 mmol/L Normal 3.5 - 5.1 [facility] Comment on above: Performed By: #### 2 81631 ####[facility],[address] [place] [address] 92128 Protein [Mass/Vol] 8.3 g/dL High 6.4 - 8.2 [facility] Comment on above: Performed By: #### 2 18484 ####[facility],[address] [place] [address] 85413 Sodium [Moles/Vol] 135 mmol/L Low 136 - 145 [facility] Comment on above: Performed By: #### 2 93869 ####[facility],[address] [place] [address] 35975 Urea nitrogen [Mass/Vol] 22 mg/dL High 7 - 18 [facility] Comment on above: Performed By: #### 2 68050 ####[facility],[address] [place] [address] 10240 ED MED ADMINISTRATION DETAIL on 02-10-2025 ED MED ADMINISTRATION DETAIL Normal [facility] ED NURSES CLINICAL NOTEon ED NURSES CLINICAL NOTE Normal [facility] ED ORDER SHEET (CPOE ONLY)on 02-10-2025 ED ORDER SHEET (CPOE ONLY) Normal [facility] ED PHYSICIAN CLINICAL REPORT on 02-10-2025 ED PHYSICIAN CLINICAL REPORT Normal [facility] ED SUPER BILLon 02-10-2025 ED SUPER BILL Normal [facility] ED VISIT SUMMARYon ED VISIT SUMMARY Normal [facility] ED VITALS FLOW SHEETon 02-10 ED VITALS FLOW SHEET Normal [facility] LACTATEon 02-10-2025 Lactate [Moles/Vol] 1.9 mmol/L Normal 0.4 - 2.0 [facility] Comment on above: Performed By: #### 2 42617 ####[facility],[address] [place] [address] LIPASEon 02-10-2025 Lipase [Catalytic activity/Vol] 84.0 U/L High 15.0 - 78.0 [facility] Comment on above: Result Comment: *PLE ASE NOTE THAT RANGES FOR LIPASE HAVE CHANGED OF 04/12/23 DUE TO AN ASSAYUPDATE BY THE PARTS COORDINATOR.THE NEW ASSAY RANGE IS 6-250 U/L, WITH A REFERENCERANGE OF 16-77 U/L. Performed By: #### 2 57504 ####[facility],[address] [place] [address] SEDRATEon 02-10-2025 SEDRATE 14 mm/hr Normal 0 - 30 [facility] Comment on above: Performed By: #### 2 70936 ####[place] [address] TROPONINon 02-10-2025 HS TROPONIN <4.0 Normal 0.0 - 51.4 [facility] Comment on above: Performed By: #### 2 75079 ####[facility],[address] [place] [address] TSHon 02-10-2025 TSH Qn 1.65 m[IU]/L Normal 0.35 - 3.74 [facility] Comment on above: Performed By: #### 2 07745 ####[facility],[address] [place] [address] 91845 URINALYSISon 02-10-2025 Amorphous 2+ Normal [facility] Comment on above: Performed By: #### 2 26143 ####[facility],[address] [place] [address] 81270 Bacteria NONE Normal [facility] Comment on above: Performed By: #### 2 71749 ####[facility],[address] [place] [address] 05758 Bilirubin Ql (U) Negative Normal NORMAL: NEGATIVE [facility] Comment on above: Performed By: #### 2 03235 ####[facility],[address] [place] [address] 38944 Casts NONE Normal [facility] Comment on above: Performed By: #### 2 98862 ####[facility],[address] [place] [address] 84364 Clarity (U) CLEAR Normal NORMAL: CLEAR [facility] Comment on above: Performed By: #### 2 99501 ####[facility],[address] [place] [address] 89280 Color (U) brown Normal NORMAL: YELLOW [facility] Comment on above: Performed By: #### 2 66697 ####[facility],[address] [place] [address] 95498 Crystals LM Nom (Urine sed) NONE Normal [facility] Comment on above: Performed By: #### 2 15047 ####[facility],[address] [place] [address] 40438 Epi Cells FEW Normal [facility] Comment on above: Performed By: #### 2 26313 ####[facility],[address] [place], [place] [address] Glucose Ql (U) NORM Normal NORMAL: NORMAL [facility] Comment on above: Performed By: #### 2 93507 ####[facility],[address] [place] [address] 47171 Hemoglobin Ql (U) Negative Normal NORMAL: NEGATIVE [facility] Comment on above: Performed By: #### 2 91439 ####[facility],[address] [place] [address] 97790 Ketone 15 Abnormal NORMAL: NEGATIVE [facility] Comment on above: Performed By: #### 2 39848 ####[facility],[address] [place] [address] Leukocytes 25 Abnormal NORMAL: NEGATIVE [facility] Comment on above: Performed By: #### 2 60760 ####[facility],[address] [place] [address] Mucous 2+ Normal [facility] Comment on above: Performed By: #### 2 43488 ####[facility],[address] [place], [place] [id number] Nitrite Ql (U) Negative Normal NORMAL: NEGATIVE [facility] Comment on above: Performed By: #### 2 23175 ####[facility],[address] [place], [place] [id number] pH (U) 5 [pH] Normal NORMAL: 5.0-8.0 [facility] Comment on above: Performed By: #### 2 88604 ####[facility],[address] [place] [address] 59423 Protein Ql (U) 30 Abnormal NORMAL: NEGATIVE [facility] Comment on above: Performed By: #### 2 62010 ####[facility],[address] [place] [address] 02585 Rbc NONE Normal 0-3/hpf [facility] Comment on above: Performed By: #### 2 15014 ####[facility],[address] [place], [place] [id number] Sp [place] 1.025 Normal NORMAL: 1.010-1.030 [facility] Comment on above: Performed By: #### 2 39545 ####[facility],[address] [place] [address] Specimen Type R Normal [facility] Comment on above: Performed By: #### 2 28328 ####[facility],[address] [place] [address] Urinalysis dipstick W Reflex Microscopic panel (U) SEE BELOW Normal [facility] Comment on above: Result Comment: MICR OSCOPIC Performed By: #### 2 11042 ####[facility],[address] [place] [address] Urobilinog 1 Abnormal NORMAL: NORMAL [facility] Comment on above: Performed By: #### 2 27490 ####[facility],[address] [place] [address] Wbc 1-5 Normal 0-5/hpf [facility] Comment on above: Performed By: #### 2 98078 ####[facility],[address] [place] [address] Yeast NONE Normal [facility] Comment on above: Performed By: #### 2 78216 ####[facility],[address] [place] [address] MR/BMS.SIMONBon 02-03-2025 MR/BMS.IMB [facility] [address] [facility]. [address] [place] [address] OFFICE VISIT Date of Service: 02/03/25 MR#: [id number] Acct: [id number] Name: BONY HUANG Rep #: [id number] : 1950 Provider: Dr. Cheikh negrete MD Age/Sex: 75/F Location: [facility] Status: Signed Intake Vital Signs 12/21/24 11:07 [...] Care Management Chief Complaint: Abnormal bowel movements [employer] Required: No Accompanied by: Is patient in [...] a couple of additional ER visits. Unfortunately, [facility] in [place] declined seeing Bony within their gastric motility disorder clinic. She did get back in with [facility]. However to me, no specific inroads were [...] fluids and Zofran and discharged. From the [facility] standpoint, I guess they will continue to follow her however they just suggested that she work with the combination of fiber supplement on the 1 hand as well as MiraLAX and if said send the diarrhea, loperamide. She still has a fairly limited dietary spectrum of foods that she can tolerate. M (more content not included)... Normal [facility] CBC + DIFFon 02-01-2025 Baso # 0.04 x10EE3/UL Normal 0.00 - 0.10 [facility] Comment on above: Performed By: #### 2 99560 ####[facility],[address] [place] [address] Basophils/100 WBC (Bld) 0.3 % Normal 0.0 - 2.0 [facility] Comment on above: Performed By: #### 2 83130 ####[facility],[address] [place] [address] CBC + DIFF Normal [facility] Comment on above: Result Comment: CBC- COMPLETE BLOOD COUNT Performed By: #### 2 46718 ####[facility],[address] [place] [address] EO # 0.25 x10EE3/UL Normal 0.00 - 0.50 [facility] Comment on above: Performed By: #### 2 18537 ####[facility],[address] [place], [place] [phone] Eosinophils/100 WBC (Bld) 2.2 % Normal 0.0 - 7.0 [facility] Comment on above: Performed By: #### 2 25538 ####[facility],[address] [place] [address] Erythrocyte distribution width (RBC) [Ratio] 13.3 % Normal 12.0 - 15.6 [facility] Comment on above: Performed By: #### 2 08004 ####[place] [address],[place] [address] Hematocrit (Bld) [Volume fraction] 46.2 % High 34.0 - 46.0 [facility] Comment on above: Performed By: #### 2 79668 ####[facility],[address] [place] [address] 55007 Hemoglobin (Bld) [Mass/Vol] 15.7 g/dL Normal 12.0 - 16.0 [facility] Comment on above: Performed By: #### 2 04238 ####[facility],[address] [place] [address] 10179 Lymph # 2.13 x10EE3/UL Normal 0.80 - 2.80 [facility] Comment on above: Performed By: #### 2 17555 ####[facility],[address] [place] [address] 63605 Lymphocytes/100 WBC (Bld) 18.4 % Low 20.0 - 45.0 [facility] Comment on above: Performed By: #### 2 57187 ####[facility],[address] [place] [address] 42447 MANUAL DIFF N/A Normal [facility] Comment on above: Performed By: #### 2 18000 ####[facility],[address] [place] [address] 40380 MCH (RBC) [Entitic mass] 29 pg Normal 27 - 33 [facility] Comment on above: Performed By: #### 2 80090 ####[facility],[address] [place] [address] 80039 MCHC 34 X10 3 Normal 32 - 36 [facility] Comment on above: Performed By: #### 2 32274 ####[facility],[address] [place] [address] 98457 MCV (RBC) [Entitic vol] 85 fL Normal 80 - 99 [facility] Comment on above: Performed By: #### 2 46496 ####[facility],[address] [place] [address] 59046 Merrick # 0.74 x10EE3/UL Normal 0.20 - 1.00 [facility] Comment on above: Performed By: #### 2 79324 ####[facility],[address] [place] [address] 18248 MONOS % 6.4 % Normal 0.0 - 10.0 [facility] Comment on above: Performed By: #### 2 78874 ####[facility],[address] [place] [address] 10246 Morphology Julian (Bld) [Interp] N/A Normal [facility] Comment on above: Performed By: #### 2 27206 ####[facility],[address] [place] [address] 07208 Neut # 8.46 x10EE3/UL High 1.50 - 7.10 [facility] Comment on above: Performed By: #### 2 41848 ####[facility],[address] [place] [address] 38607 Neutrophils/100 WBC (Bld) 72.8 % Normal 46.0 - 76.0 [facility] Comment on above: Performed By: #### 2 23225 ####[facility],[address] [place] [address] 93139 PLATELET 344 x10EE3/UL Normal 150 - 450 [facility] Comment on above: Performed By: #### 2 62982 ####[facility],[address] [place] [address] 99808 Platelet mean volume (Bld) [Entitic vol] 7.3 fL Normal 6.6 - 10.5 [facility] Comment on above: Result Comment: AUTO MATED DIFFERENTIAL Performed By: #### 2 94614 ####[facility],[address] [place] [address] 26496 RBC 5.46 x 10EE6/UL High 4.10 - 5.30 [facility] Comment on above: Performed By: #### 2 74187 ####[facility],[address] [place] [address] 83423 WBC 11.6 x 10EE3/UL High 4.5 - 10.8 [facility] Comment on above: Performed By: #### 2 44172 ####[facility],[address] [place] [address] 81106 CMP with eGFRon 02-01-2025 AGE 75 years Normal [facility] Comment on above: Performed By: #### 2 25456 ####[facility],[address] [place] [address] 85736 Albumin [Mass/Vol] 3.9 g/dL Normal 3.4 - 5.0 [facility] Comment on above: Performed By: #### 2 85264 ####[facility],[address] [place] [address] 10087 Albumin/Globulin [Mass ratio] 1.0 {ratio} Normal 0.9 - 1.6 [facility] Comment on above: Performed By: #### 2 86434 ####[facility],[address] [place] [address] 46856 ALK PHOS 102 U/L Normal 46 - 116 [facility] Comment on above: Performed By: #### 2 70782 ####[facility],[address] [place] [address] 35911 ALT [Catalytic activity/Vol] 24 U/L Normal 16 - 63 [facility] Comment on above: Performed By: #### 2 28485 ####[facility],[address] [place] [address] 07001 Anion gap [Moles/Vol] 14 mmol/L Normal 10 - 20 [facility] Comment on above: Performed By: #### 2 74643 ####[facility],[address] [place] [address] 23247 AST [Catalytic activity/Vol] 18 U/L Normal 13 - 39 [facility] Comment on above: Performed By: #### 2 77467 ####[facility],[address] [place] [address] 33344 B/C RATIO 15 ratio Normal 0 - 30 [facility] Comment on above: Performed By: #### 2 02158 ####[facility],[address] [place] [address] 45595 Bilirubin [Mass/Vol] 0.5 mg/dL Normal 0.2 - 1.0 [facility] Comment on above: Performed By: #### 2 34733 ####[facility],[address] [place] [address] 13387 Calcium [Mass/Vol] 9.8 mg/dL Normal 8.5 - 10.1 [facility] Comment on above: Performed By: #### 2 51371 ####[facility],[address] [place] [address] 99401 Chloride [Moles/Vol] 97 mmol/L Low 98 - 107 [facility] Comment on above: Performed By: #### 2 92347 ####[facility],[address] [place] [address] 57352 CMP with eGFR Normal [facility] Comment on above: Result Comment: COMP REHENSIVE METABOLIC PANEL Performed By: #### 2 72965 ####[facility],[address] [place] [address] 95692 CO2 [Moles/Vol] 32.8 mmol/L High 21.0 - 32.0 [facility] Comment on above: Performed By: #### 2 95124 ####[facility],[address] [place] [address] 27606 Creatinine [Mass/Vol] 1.11 mg/dL High 0.55 - 1.02 [facility] Comment on above: Performed By: #### 2 53539 ####[facility],[address] [place] [address] 59768 eGFR 48 ML/MINUTE Low 60 - 999 [facility] Comment on above: Performed By: #### 2 37818 ####[facility],[address] [place] [address] 78427 eGFR(AA) 58 ML/MINUTE Low 60 - 999 [facility] Comment on above: Result Comment: ACCO RDING TO THE NATIONAL KIDNEY DISEASE EDUCATION PROGRAM(NKDE), A NORMAL eGFRIS A VALUE GREATER THAN OR EQUAL TO 60 ML/MIN/1.73 SQ METERS.CHRONIC KIDNEY DISEASE: <60mL/MIN/1.73 SQ METERSKIDNEY FAILURE: <15mL/MIN/1.73 SQ METERSTHIS TEST SHOULD ONLY BE USED FOR PATIENTS 18 YEARS OF AGE AND OLDER. Performed By: #### 2 07392 ####[facility],[address] [place] [address] 86177 Globulin (S) [Mass/Vol] 3.9 g/dL High 1.5 - 3.8 [facility] Comment on above: Performed By: #### 2 02599 ####[address] [address] Glucose [Mass/Vol] 140 mg/dL High 74 - 106 [facility] Comment on above: Performed By: #### 2 78118 ####[facility],[address] [place] [address] 06614 Potassium [Moles/Vol] 2.9 mmol/L Critically low 3.5 - 5.1 [facility] Comment on above: Result Comment: { CA LLED TO JEROME RN BY AA [id number]{ READ BACK BY JEROME MOREIRA RA [id number] Performed By: #### 2 91590 ####[address] [address] Protein [Mass/Vol] 7.8 g/dL Normal 6.4 - 8.2 [facility] Comment on above: Performed By: #### 2 37941 ####[facility],[address] [place] [address] 51591 Sodium [Moles/Vol] 141 mmol/L Normal 136 - 145 [facility] Comment on above: Performed By: #### 2 41558 ####[facility],[address] [place] [address] Urea nitrogen [Mass/Vol] 17 mg/dL Normal - [facility] Comment on above: Performed By: #### 2 88040 ####[facility],[address] [place], [place] [id number] LIPASEon 02-01-2025 Lipase [Catalytic activity/Vol] 79.0 U/L High 15.0 - 78.0 [facility] Comment on above: Result Comment: *PLE ASE NOTE THAT RANGES FOR LIPASE HAVE CHANGED OF 04/12/23 DUE TO AN ASSAYUPDATE BY THE PARTS COORDINATOR.THE NEW ASSAY RANGE IS 6-250 U/L, WITH A REFERENCERANGE OF 16-77 U/L. Performed By: #### 2 26750 ####[facility],[address] [place] [address] ED MED ADMINISTRATION DETAIL on 01-30-2025 ED MED ADMINISTRATION DETAIL Normal [facility] ED NURSES CLINICAL NOTEon ED NURSES CLINICAL NOTE Normal [facility] ED ORDER SHEET (CPOE ONLY)on 01-30-2025 ED ORDER SHEET (CPOE ONLY) Normal [facility] ED PHYSICIAN CLINICAL REPORT on 01-30-2025 ED PHYSICIAN CLINICAL REPORT Normal [facility] ED SUPER BILLon 01-30-2025 ED SUPER BILL Normal [facility] ED VISIT SUMMARYon ED VISIT SUMMARY Normal [facility] ED VITALS FLOW SHEETon 01-30 ED VITALS FLOW SHEET Normal [facility] CBC + DIFFon 01-29-2025 Baso # 0.05 x10EE3/UL Normal 0.00 - 0.10 [facility] Comment on above: Performed By: #### 2 39420 ####[facility],[address] [place] [address] Basophils/100 WBC (Bld) 0.6 % Normal 0.0 - 2.0 [facility] Comment on above: Performed By: #### 2 17278 ####[facility],[address] [place] [address] CBC + DIFF Normal [facility] Comment on above: Result Comment: CBC- COMPLETE BLOOD COUNT Performed By: #### 2 38858 ####[facility],[address] [place] [address] EO # 0.18 x10EE3/UL Normal 0.00 - 0.50 [facility] Comment on above: Performed By: #### 2 49975 ####[place] [address] Eosinophils/100 WBC (Bld) 2.1 % Normal 0.0 - 7.0 [facility] Comment on above: Performed By: #### 2 33056 ####[place] [address] Erythrocyte distribution width (RBC) [Ratio] 13.6 % Normal 12.0 - 15.6 [facility] Comment on above: Performed By: #### 2 24969 ####[place] [address] Hematocrit (Bld) [Volume fraction] 43.8 % Normal 34.0 - 46.0 [facility] Comment on above: Performed By: #### 2 64699 ####[facility],[address] [place] [address] Hemoglobin (Bld) [Mass/Vol] 15.0 g/dL Normal 12.0 - 16.0 [facility] Comment on above: Performed By: #### 2 83160 ####[place] [address] Lymph # 1.40 x10EE3/UL Normal 0.80 - 2.80 [facility] Comment on above: Performed By: #### 2 87591 ####[facility],[address] [place] [address] Lymphocytes/100 WBC (Bld) 16.3 % Low 20.0 - 45.0 [facility] Comment on above: Performed By: #### 2 23710 ####[facility],[address] [place] [address] MANUAL DIFF N/A Normal [facility] Comment on above: Performed By: #### 2 86632 ####[facility],[address] [place] [address] MCH (RBC) [Entitic mass] 29 pg Normal 27 - 33 [facility] Comment on above: Performed By: #### 2 75108 ####[facility],[address] [place] [address] MCHC 34 X10 3 Normal 32 - 36 [facility] Comment on above: Performed By: #### 2 35092 ####[facility],[address] [place] [address] MCV (RBC) [Entitic vol] 85 fL Normal 80 - 99 [facility] Comment on above: Performed By: #### 2 84653 ####[facility],[address] [place] [address] Merrick # 0.81 x10EE3/UL Normal 0.20 - 1.00 [facility] Comment on above: Performed By: #### 2 67155 ####[facility],[address] [place] [address] MONOS % 9.3 % Normal 0.0 - 10.0 [facility] Comment on above: Performed By: #### 2 25214 ####[place] [address] Morphology Julian (Bld) [Interp] N/A Normal [facility] Comment on above: Performed By: #### 2 01570 ####[facility],[address],[place] [address] Neut # 6.19 x10EE3/UL Normal 1.50 - 7.10 [facility] Comment on above: Performed By: #### 2 15566 ####[facility],[address] [place] [address] 41773 Neutrophils/100 WBC (Bld) 71.7 % Normal 46.0 - 76.0 [facility] Comment on above: Performed By: #### 2 08144 ####[facility],[address] [place] [address] 81998 PLATELET 317 x10EE3/UL Normal 150 - 450 [facility] Comment on above: Performed By: #### 2 37148 ####[facility],[address] [place] [address] 21899 Platelet mean volume (Bld) [Entitic vol] 7.7 fL Normal 6.6 - 10.5 [facility] Comment on above: Result Comment: AUTO MATED DIFFERENTIAL Performed By: #### 2 60496 ####[facility],[address] [place] [address] 29193 RBC 5.17 x 10EE6/UL Normal 4.10 - 5.30 [facility] Comment on above: Performed By: #### 2 65215 ####[facility],[address] [place] [address] 29658 WBC 8.6 x 10EE3/UL Normal 4.5 - 10.8 [facility] Comment on above: Performed By: #### 2 21831 ####[facility],[address] [place] [address] 85763 CMP with eGFRon 01-29-2025 AGE 75 years Normal [facility] Comment on above: Performed By: #### 2 47081 ####[facility],[address] [place] [address] 88040 Albumin [Mass/Vol] 3.7 g/dL Normal 3.4 - 5.0 [facility] Comment on above: Performed By: #### 2 47809 ####[facility],[address] [place] [address] 21480 Albumin/Globulin [Mass ratio] 1.0 {ratio} Normal 0.9 - 1.6 [facility] Comment on above: Performed By: #### 2 78043 ####[facility],[address] [place] [address] 90197 ALK PHOS 101 U/L Normal 46 - 116 [facility] Comment on above: Performed By: #### 2 24143 ####[facility],[address] [place] [address] 01255 ALT [Catalytic activity/Vol] 20 U/L Normal 16 - 63 [facility] Comment on above: Performed By: #### 2 50342 ####[facility],[address] [place] [address] 67570 Anion gap [Moles/Vol] 11 mmol/L Normal 10 - 20 [facility] Comment on above: Performed By: #### 2 77664 ####[facility],[address] [place] [address] 04593 AST [Catalytic activity/Vol] 19 U/L Normal 13 - 39 [facility] Comment on above: Performed By: #### 2 50830 ####[facility],[address] [place] [address] 26379 B/C RATIO 14 ratio Normal 0 - 30 [facility] Comment on above: Performed By: #### 2 92768 ####[facility],[address] [place] [address] 33754 Bilirubin [Mass/Vol] 0.3 mg/dL Normal 0.2 - 1.0 [facility] Comment on above: Performed By: #### 2 47721 ####[facility],[address] [place] [address] 23119 Calcium [Mass/Vol] 9.1 mg/dL Normal 8.5 - 10.1 [facility] Comment on above: Performed By: #### 2 63414 ####[facility],[address] [place] [address]442 Chloride [Moles/Vol] 96 mmol/L Low 98 - 107 [facility] Comment on above: Performed By: #### 2 55626 ####[facility],[address] [place] [address] 45567 CMP with eGFR Normal [facility] Comment on above: Result Comment: COMP REHENSIVE METABOLIC PANEL Performed By: #### 2 06488 ####[facility],[address] [place] [address] 19142 CO2 [Moles/Vol] 33.0 mmol/L High 21.0 - 32.0 [facility] Comment on above: Performed By: #### 2 47098 ####[facility],[address] [place] [address] 56454 Creatinine [Mass/Vol] 1.25 mg/dL High 0.55 - 1.02 [facility] Comment on above: Performed By: #### 2 32394 ####[facility],[address] [place] [address] 20432 eGFR 42 ML/MINUTE Low 60 - 999 [facility] Comment on above: Performed By: #### 2 87248 ####[facility],[address] [place] [address] 43715 eGFR(AA) 51 ML/MINUTE Low 60 - 999 [facility] Comment on above: Result Comment: ACCO RDING TO THE NATIONAL KIDNEY DISEASE EDUCATION PROGRAM(NKDE), A NORMAL eGFRIS A VALUE GREATER THAN OR EQUAL TO 60 ML/MIN/1.73 SQ METERS.CHRONIC KIDNEY DISEASE: <60mL/MIN/1.73 SQ METERSKIDNEY FAILURE: <15mL/MIN/1.73 SQ METERSTHIS TEST SHOULD ONLY BE USED FOR PATIENTS 18 YEARS OF AGE AND OLDER. Performed By: #### 2 70724 ####[facility],[address] [place] [address] 25617 Globulin (S) [Mass/Vol] 3.8 g/dL Normal 1.5 - 3.8 [facility] Comment on above: Performed By: #### 2 41505 ####[facility],[address] [place] [address] 85493 Glucose [Mass/Vol] 128 mg/dL High 74 - 106 [facility] Comment on above: Performed By: #### 2 53845 ####[facility],[address] [place] [address] 88246 Potassium [Moles/Vol] 3.0 mmol/L Low 3.5 - 5.1 [facility] Comment on above: Performed By: #### 2 55127 ####[facility],[address] [place] [address] 49949 Protein [Mass/Vol] 7.5 g/dL Normal 6.4 - 8.2 [facility] Comment on above: Performed By: #### 2 65656 ####[facility],[address] [place] [address] 16092 Sodium [Moles/Vol] 137 mmol/L Normal 136 - 145 [facility] Comment on above: Performed By: #### 2 78256 ####[facility],[address] [place] [address] 61678 Urea nitrogen [Mass/Vol] 18 mg/dL Normal 7 - 18 [facility] Comment on above: Performed By: #### 2 77694 ####[facility],[address] [place] [address] 99736 CBC panel Auto (Bld)on 01-22 Erythrocyte distribution width (RBC) [Ratio] 13.1 % Normal 11.5-15.0 [facility] Comment on above: Order Comment: Speci men Type: BLOOD SPECIMEN Ordering Facility: [facility] Address: [address] [place] [address] Performed By: #### 5 8410-2 #### [facility] CLIA [id number] [place] Hematocrit (Bld) [Volume fraction] 38.4 % Normal 36.0-46.0 [facility] Comment on above: Order Comment: Speci men Type: BLOOD SPECIMEN Ordering Facility: [facility] Address: [address] [place] [address] Performed By: #### 5 8410-2 #### [facility] CLIA [id number] [place] [address] [place] Hemoglobin (Bld) [Mass/Vol] 12.7 g/dL Normal 11.5-15.5 [facility] Comment on above: Order Comment: Speci men Type: BLOOD SPECIMEN Ordering Facility: [facility] Address: [address] [place] [address] Performed By: #### 5 8410-2 #### [facility] CLIA [id number] [place] [address] [place] MCH (RBC) [Entitic mass] 28.5 pg Normal 26.0-34.0 [facility] Comment on above: Order Comment: Speci men Type: BLOOD SPECIMEN Ordering Facility: [facility] Address: [address] [place] [address] Performed By: #### 5 8410-2 #### [facility] CLIA [id number] [place] [address] [place] MCHC (RBC) [Mass/Vol] 33.1 g/dL Normal 30.5-36.0 [facility] Comment on above: Order Comment: Speci men Type: BLOOD SPECIMEN Ordering Facility: [facility] Address: [address] [place] [address] Performed By: #### 5 8410-2 #### [facility] CLIA [id number] [place] [address] [place] MCV (RBC) [Entitic vol] 86.3 fL Normal 80.0-100.0 [facility] Comment on above: Order Comment: Speci men Type: BLOOD SPECIMEN Ordering Facility: [facility] Address: [address] [place] [address] Performed By: #### 5 8410-2 #### [facility] CLIA [id number] [place] [id number] [place] Nucleated RBC (Bld) [#/Vol] 10*3/uL Normal <0.01 [facility] Comment on above: Order Comment: Speci men Type: BLOOD SPECIMEN Ordering Facility: [facility] Address: [address] [place] [address] Performed By: #### 5 8410-2 #### [facility] CLIA [id number] [place] [address] [place] Platelet mean volume (Bld) [Entitic vol] 10.6 fL Normal 9.0-12.7 [facility] Comment on above: Order Comment: Speci men Type: BLOOD SPECIMEN Ordering Facility: [facility] Address: [address] [place] [address] Performed By: #### 5 8410-2 #### [facility] CLIA [id number] [place] [address] [place] Platelets (Bld) [#/Vol] 222 10*3/uL Normal 150-400 [facility] Comment on above: Order Comment: Speci men Type: BLOOD SPECIMEN Ordering Facility: [facility] Address: [address] [place] [address] Performed By: #### 5 8410-2 #### [facility] CLIA [id number] [place] [address] [place] RBC (Bld) [#/Vol] 4.45 10*6/uL Normal 3.90-5.20 [facility] Comment on above: Order Comment: Speci men Type: BLOOD SPECIMEN Ordering Facility: [facility] Address: [address] [place] [address] Performed By: #### 5 8410-2 #### [facility] CLIA [id number] [place] [address] [place] WBC (Bld) [#/Vol] 10.98 10*3/uL Normal 3.70-11.00 [facility] Comment on above: Order Comment: Speci men Type: BLOOD SPECIMEN Ordering Facility: [facility] Address: [facility] [place] [address] Performed By: #### 5 8410-2 #### [facility] CLIA [id number] [address] [place] [address] OF [facility] CNDSon 01-22-2025 CNDS HNO ID: [id number] Author: THERESA MATTHEWS MD Service: General Internal [...] Team: Attending Provider: Theresa Matthews MD Physician Tank Inspector: Indigo Sr PA-C Consulting: Shyanne Sanchez MD MY CONDITION AT DISCHARGE: Stable REASON I WAS IN THE HOSPITAL: Nausea/vomiting SUMMARY OF WHAT HAPPENED WHILE I WAS IN THE HOSPITAL: 75 y/o female with past medical history of GERD, Hypothroidism, N/V presents to [facility] via transfer from another hospital with complaints [...] Team: Attending Provider: Theresa Matthews MD Physician Tank Inspector: Indigo Sr PA-C Transitions of Care Critical Issues: SPECIALIST FOLLOW-UP: GI LABS AND PROCEDURES PENDING AT DISCHARGE: No pending results. FOLLOW-UP APPOINTMENTS ALREADY SCHEDULED WITH A [facility] PROVIDER: No future appointments. ALLERGIES Allergen [...] once daily. ergo (more content not included)... [facility] CONSULT PROGon 01-22-2025 CONSULT PROG HNO ID: [id number] Author: SHYANNE SANCHEZ MD Service: Gastroenterology Author Type: Resident Type: Consult Progress Note Filed: 01/22/2025 13:34 Note Text: Attestation signed by Shyanne Sanchez MD at 01/22/2025 1:34 PM [facility] STAFF PHYSICIAN NOTE OF PERSONAL INVOLVEMENT [...] 22, 2025 Patient: Bony Huang Medical Record: [id number] Reason for Initial Consult: gastroparesis Overnight updates: [...] then progress (more content not included)... Normal [facility] Comprehensive metabolic 2000 panelon 01-22-2025 Albumin [Mass/Vol] 3.6 g/dL Low 3.9-4.9 [facility] Comment on above: Order Comment: Ness jacinto Type: BLOOD SPECIMEN Ordering Facility: [facility] Address: [address] [place] [address] Performed By: #### 5 8410-2 #### [facility] CLIA [id number] [address] [place] [address] [place] ALP [Catalytic activity/Vol] 84 U/L Normal 34-123 [facility] Comment on above: Order Comment: Ness jacinto Type: BLOOD SPECIMEN Ordering Facility: [facility] Address: [address] [place] [address] Performed By: #### 5 8410-2 #### [facility] CLIA [id number] [place] [id number] [place] ALT [Catalytic activity/Vol] 8 U/L Normal 7-38 [facility] Comment on above: Order Comment: Speci men Type: BLOOD SPECIMEN Ordering Facility: [facility] Address: [address] [place] [address] Performed By: #### 5 8410-2 #### [facility] CLIA [id number] [place] [address] [place] Anion gap [Moles/Vol] 14 mmol/L Normal 8-15 [facility] Comment on above: Order Comment: Speci men Type: BLOOD SPECIMEN Ordering Facility: [facility] Address: [address] [place] [address] Performed By: #### 5 8410-2 #### [facility] CLIA [id number] [place] [address] [place] AST [Catalytic activity/Vol] 15 U/L Normal 13-35 [facility] Comment on above: Order Comment: Speci men Type: BLOOD SPECIMEN Ordering Facility: [facility] Address: [address] [place] [address] Performed By: #### 5 8410-2 #### [facility] CLIA [id number] [place] [address] [place] Bilirubin [Mass/Vol] 0.5 mg/dL Normal 0.2-1.3 [facility] Comment on above: Order Comment: Speci men Type: BLOOD SPECIMEN Ordering Facility: [facility] Address: [address] [place] [address] Performed By: #### 5 8410-2 #### [facility] CLIA [id number] [place] [address] [place] Calcium [Mass/Vol] 8.5 mg/dL Normal 8.5-10.2 [facility] Comment on above: Order Comment: Speci men Type: BLOOD SPECIMEN Ordering Facility: [facility] Address: [address] [place], [place] [address] Performed By: #### 5 8410-2 #### [facility] CLIA [id number] [place] [address] [place] Chloride [Moles/Vol] 104 mmol/L Normal 98-107 [facility] Comment on above: Order Comment: Speci men Type: BLOOD SPECIMEN Ordering Facility: [facility] Address: [address] [place] [address] Performed By: #### 5 8410-2 #### [facility] CLIA [id number] [place] [address] [place] CO2 [Moles/Vol] 19 mmol/L Low 22-30 [facility] Comment on above: Order Comment: Speci men Type: BLOOD SPECIMEN Ordering Facility: [facility] Address: [address] [place] [address] Performed By: #### 5 8410-2 #### [facility] CLIA [id number] [place] [address] [place] Creatinine [Mass/Vol] 0.92 mg/dL Normal 0.58-0.96 [facility] Comment on above: Order Comment: Speci men Type: BLOOD SPECIMEN Ordering Facility: [facility] Address: [address] [place] [address] Performed By: #### 5 8410-2 #### [facility] CLIA [id number] [place] [address] [place] eGFRcr SerPlBld CKD-EPI 2020 65 mL/min/1.73m??? Normal >=60 [facility] Comment on above: Order Comment: Speci men Type: BLOOD SPECIMEN Ordering Facility: [facility] Address: [address] [place] [address] Result Comment: Itzel mated Glomerular Filtration Rate [...] GFR. Performed By: #### 5 8410-2 #### [facility] CLIA [id number] [place] [address] [place] Glucose [Mass/Vol] 93 mg/dL Normal 74-99 [facility] Comment on above: Order Comment: Ness jacinto Type: BLOOD SPECIMEN Ordering Facility: [facility] Address: [address] [place] [address] Result Comment: The [place] [employer] (ADA) provides guidance for cutoff [...] Standards of Medical Care in Diabetes 2016, [place] [employer]. Diabetes Care. 2016.39(Suppl 1). Performed By: #### 5 8410-2 #### [facility] CLIA [id number] [place] [address] [place] Potassium [Moles/Vol] 4.1 mmol/L Normal 3.7-5.1 [facility] Comment on above: Order Comment: Ness jacinto Type: BLOOD SPECIMEN Ordering Facility: [facility] Address: [address] [place] [address] Performed By: #### 5 8410-2 #### [facility] CLIA [id number] [place] [id number] [place] Protein [Mass/Vol] 6.0 g/dL Low 6.3-8.0 [facility] Comment on above: Order Comment: Ness jacinto Type: BLOOD SPECIMEN Ordering Facility: [facility] Address: [address] [place] [address] Performed By: #### 5 8410-2 #### [facility] CLIA [id number] [place] [address] [place] Sodium [Moles/Vol] 137 mmol/L Normal 136-144 [facility] Comment on above: Order Comment: Speci men Type: BLOOD SPECIMEN Ordering Facility: [facility] Address: [address] [place] [address] Performed By: #### 5 8410-2 #### [facility] CLIA [id number] [place] [address] [place] Urea nitrogen [Mass/Vol] 20 mg/dL Normal 7-21 [facility] Comment on above: Order Comment: Speci men Type: BLOOD SPECIMEN Ordering Facility: [facility] Address: [address] [place] [address] Performed By: #### 5 8410-2 #### [facility] CLIA [id number] [place] [address] [place] [facility] Magnesium [Mass/Vol] 1.8 mg/dL Normal 1.7-2.3 [facility] Comment on above: Order Comment: Speci men Type: BLOOD SPECIMEN Ordering Facility: [facility] Address: [address] [place] [address] Performed By: #### 5 8410-2 #### [facility] CLIA [id number] [place], [place] [address] [place] NUTRITIONon 01-22-2025 NUTRITION HNO ID: [id number] Author: ESTHER RAYMOND RD Service: Nutrition Therapy [...] RD DATE: 01/22/2025 TIME: 9:52 AM Normal [facility] CBC panel Auto (Bld)on 01-21 Erythrocyte distribution width (RBC) [Ratio] 12.8 % Normal 11.5-15.0 [facility] Comment on above: Order Comment: Speci men Type: BLOOD SPECIMENOrdering Facility: [facility] Address: [address] [place] [address] Performed By: #### 5 8410-2 ####[facility] LABORATORYCLIA [id number] [place] [address] [place] Hematocrit (Bld) [Volume fraction] 46.6 % High 36.0-46.0 [facility] Comment on above: Order Comment: Speci men Type: BLOOD SPECIMENOrdering Facility: [facility] Address: [address] [place] [address] Performed By: #### 5 8410-2 ####[facility] LABORATORYCLIA [id number] [place] [id number] [place] Hemoglobin (Bld) [Mass/Vol] 16.0 g/dL High 11.5-15.5 [facility] Comment on above: Order Comment: Speci men Type: BLOOD SPECIMENOrdering Facility: [facility] Address: [address] [place] [address] Performed By: #### 5 8410-2 ####[facility] LABORATORYCLIA [id number] [place] [id number] [place] MCH (RBC) [Entitic mass] 28.6 pg Normal 26.0-34.0 [facility] Comment on above: Order Comment: Speci men Type: BLOOD SPECIMENOrdering Facility: [facility] Address: [address] [place] [address] Performed By: #### 5 8410-2 ####[facility] LABORATORYCLIA [id number] [place] [id number] [place] MCHC (RBC) [Mass/Vol] 34.3 g/dL Normal 30.5-36.0 [facility] Comment on above: Order Comment: Speci men Type: BLOOD SPECIMENOrdering Facility: [facility] Address: [address] [place] [address] Performed By: #### 5 8410-2 ####[facility] LABORATORYCLIA [id number] [place] [id number] [place] MCV (RBC) [Entitic vol] 83.4 fL Normal 80.0-100.0 [facility] Comment on above: Order Comment: Speci men Type: BLOOD SPECIMENOrdering Facility: [facility] Address: [address] [place] [address] Performed By: #### 5 8410-2 ####[facility] LABORATORYCLIA [id number] [place] [address] [place] Nucleated RBC (Bld) [#/Vol] 10*3/uL Normal <0.01 [facility] Comment on above: Order Comment: Speci men Type: BLOOD SPECIMENOrdering Facility: [facility] Address: [address] [place] [address] Performed By: #### 5 8410-2 ####[facility] LABORATORYCLIA [id number] [place] [address] [place] Platelet mean volume (Bld) [Entitic vol] 10.2 fL Normal 9.0-12.7 [facility] Comment on above: Order Comment: Speci men Type: BLOOD SPECIMENOrdering Facility: [facility] Address: [address] [place] [address] Performed By: #### 5 8410-2 ####[facility] LABORATORYCLIA [id number] [place] [address] [place] Platelets (Bld) [#/Vol] 288 10*3/uL Normal 150-400 [facility] Comment on above: Order Comment: Speci men Type: BLOOD SPECIMENOrdering Facility: [facility] Address: [address] [place] [address] Performed By: #### 5 8410-2 ####[facility] LABORATORYCLIA [id number] [place] [id number] [place] RBC (Bld) [#/Vol] 5.59 10*6/uL High 3.90-5.20 [facility] Comment on above: Order Comment: Ness ophelia Type: BLOOD SPECIMENOrdering Facility: [facility] Address: [address] [place] [address] Performed By: #### 5 8410-2 ####[facility] LABORATORYCLIA [id number] [place] [id number] [place] WBC (Bld) [#/Vol] 10.83 10*3/uL Normal 3.70-11.00 [facility] Comment on above: Order Comment: Cristywilmar jacinto Type: BLOOD SPECIMENOrdering Facility: [facility] Address: [address] [place] [address] Performed By: #### 5 8410-2 ####[facility] LABORATORYCLIA [id number] [place] [id number] [facility] CONSULT PROGon 01-21-2025 CONSULT PROG HNO ID: [id number] Author: SHYANNE SANCHEZ MD Service: Gastroenterology Author Type: Resident Type: Consult Progress Note Filed: 01/21/2025 15:00 Note Text: Attestation signed by Shyanne Sanchez MD at 01/21/2025 3:00 PM [facility] STAFF PHYSICIAN NOTE OF PERSONAL INVOLVEMENT IN CARE I have reviewed the history and physical obtained and documented by my colleague and personally interviewed, examined and reviewed records/data/labs/ra diographs. I have discussed the case and management of the patient's care. Shyanne Sanchez MD Staff, Gastroenterology Gastroenterology Consult Service Progress Note Date of Service: January 20, 2025 Patient: Bony Huang Medical Record: [id number] Reason for Initial Consult: gastroparesis Overnight updates: [...] chunks and (more content not included)... Normal [facility] Comprehensive metabolic 2000 panelon 01-21-2025 Albumin [Mass/Vol] 4.8 g/dL Normal 3.9-4.9 [facility] Comment on above: Order Comment: Speci men Type: BLOOD SPECIMEN [facility] Address: [address] [place] [address] Performed By: #### 5 8410-2 #### [facility] CLIA [id number] [place] [address] [place] ALP [Catalytic activity/Vol] 125 U/L High 34-123 [facility] Comment on above: Order Comment: Speci men Type: BLOOD SPECIMEN [facility] Address: [address] [place] [address] Performed By: #### 5 8410-2 #### [facility] CLIA [id number] [place] [address] [place] ALT [Catalytic activity/Vol] 12 U/L Normal 7-38 [facility] Comment on above: Order Comment: Speci men Type: BLOOD SPECIMEN [facility] Address: [address] [place] [address] Performed By: #### 5 8410-2 #### [facility] CLIA [id number] [place] [address] [place] Anion gap [Moles/Vol] 24 mmol/L High 8-15 [facility] Comment on above: Order Comment: Speci men Type: BLOOD SPECIMEN [facility] Address: [address] [place] [address] Performed By: #### 5 8410-2 #### [facility] CLIA [id number] [place] [address] [place] AST [Catalytic activity/Vol] 16 U/L Normal 13-35 [facility] Comment on above: Order Comment: Speci men Type: BLOOD SPECIMEN [facility] Address: [address] [place] [address] Performed By: #### 5 8410-2 #### [facility] CLIA [id number] [place] [address] [place] Bilirubin [Mass/Vol] 0.6 mg/dL Normal 0.2-1.3 [facility] Comment on above: Order Comment: Speci men Type: BLOOD SPECIMEN [facility] Address: [address] [place] [address] Performed By: #### 5 8410-2 #### [facility] CLIA [id number] [place] [address] [place] Calcium [Mass/Vol] 9.7 mg/dL Normal 8.5-10.2 [facility] Comment on above: Order Comment: Speci men Type: BLOOD SPECIMEN [facility] Address: [address] [place] [address] Performed By: #### 5 8410-2 #### [facility] CLIA [id number] [place] [address] [place] Chloride [Moles/Vol] 91 mmol/L Low 98-107 [facility] Comment on above: Order Comment: Speci men Type: BLOOD SPECIMEN [facility] Address: [address] [place] [address] Performed By: #### 5 8410-2 #### [facility] CLIA [id number] [place] [address] [place] CO2 [Moles/Vol] 24 mmol/L Normal 22-30 [facility] Comment on above: Order Comment: Speci men Type: BLOOD SPECIMEN [facility] Address: [address] [place] [address] Performed By: #### 5 8410-2 #### [facility] CLIA [id number] [place] [address] [place] Creatinine [Mass/Vol] 1.67 mg/dL High 0.58-0.96 [facility] Comment on above: Order Comment: Speci men Type: BLOOD SPECIMEN [facility] Address: [address] [place] [address] Performed By: #### 5 8410-2 #### [facility] CLIA [id number] [place] [address] [place] eGFRcr SerPlBld CKD-EPI 2020 32 mL/min/1.73m??? Low >=60 [facility] Comment on above: Order Comment: Ness jacinto Type: BLOOD SPECIMEN [facility] Address: [address] [place] [address] Result Comment: Itzel mated Glomerular Filtration Rate [...] GFR. Performed By: #### 5 8410-2 #### [facility] CLIA [id number] [place] [address] [place] Glucose [Mass/Vol] 123 mg/dL High 74-99 [facility] Comment on above: Order Comment: Ness jacinto Type: BLOOD SPECIMEN [facility] Address: [address] [place] [address] Result Comment: The [place] [employer] (ADA) provides guidance for cutoff [...] Standards of Medical Care in Diabetes 2016, [place] [employer]. Diabetes Care. 2016.39(Suppl 1). Performed By: #### 5 8410-2 #### [facility] CLIA [id number] [place] [address] [place] Potassium [Moles/Vol] 3.2 mmol/L Low 3.7-5.1 [facility] Comment on above: Order Comment: Speci men Type: BLOOD SPECIMEN [facility] Address: [address] [place] [address] Performed By: #### 5 8410-2 #### [facility] CLIA [id number] [place] [address] [place] Protein [Mass/Vol] 8.3 g/dL High 6.3-8.0 [facility] Comment on above: Order Comment: Speci men Type: BLOOD SPECIMEN [facility] Address: [address] [place] [address] Performed By: #### 5 8410-2 #### [facility] CLIA [id number] [place] [address] [place] Sodium [Moles/Vol] 139 mmol/L Normal 136-144 [facility] Comment on above: Order Comment: Speci men Type: BLOOD SPECIMEN [facility] Address: [address] [place] [address] Performed By: #### 5 8410-2 #### [facility] CLIA [id number] [place] [address] [place] Urea nitrogen [Mass/Vol] 29 mg/dL High 7-21 [facility] Comment on above: Order Comment: Speci men Type: BLOOD SPECIMEN [facility] Address: [address] [place] [address] Performed By: #### 5 8410-2 #### [facility] CLIA [id number] [place] [address] [place] Magnesium SerPl-mCncon 01-21 Magnesium [Mass/Vol] 1.8 mg/dL Normal 1.7-2.3 [facility] Comment on above: Order Comment: Speci men Type: BLOOD SPECIMEN [facility] Address: [address] [place] [address] Performed By: #### 5 8410-2 #### [facility] CLIA [id number] [place] [address] [place] NURSING PROGon 01-21-2025 NURSING PROG HNO ID: [id number] Author: SETH ORDONEZ, RN Service: Nursing Author Type: Registered Nurse Type: Nursing Progress Note Filed: 01/21/2025 17:31 Note Text: 0730 Per hourly shift report pt threw up with complain of nausea, Compazine was offered pt refused preferring Zofran, sent update to floor [employer] including latest serum CREA level, per [employer] will order IVF and Zofran accordingly, keep pt comfortable. 0955 GI at bedside. 1015 Pt seen and assessed by Primary. 1255 IV access infiltrated, tired to place one with no success, informed ANM. 1400 ANM placed new IV access # 22 left FA. 1600 Pt sleeping, eyes closed, respiration even. Pt NOT in distress, keep pt comfortable. Normal [facility] C diff Tox gens Stl Ql KOREY+p robeon 01-20-2025 C. difficile toxin genes KOREY+probe Ql (Stl) Negative Normal Negative for C. difficile toxin by PCR [facility] Comment on above: Order Comment: Speci men Type: BLOOD SPECIMEN [facility] Address: [address] [place] [address] Performed By: #### 5 8410-2 #### [facility] CLIA [id number] [place] [address] [place] CBC panel Auto (Bld)on 01-20 Erythrocyte distribution width (RBC) [Ratio] 12.7 % Normal 11.5-15.0 [facility] Comment on above: Order Comment: Speci men Type: BLOOD SPECIMENOrdering Facility: [facility] Address: [address] [place] [address] Performed By: #### 5 8410-2 ####[facility]ORATORYCLIA [id number] [place] [address] [place] Hematocrit (Bld) [Volume fraction] 40.9 % Normal 36.0-46.0 [facility] Comment on above: Order Comment: Speci men Type: BLOOD SPECIMENOrdering Facility: [facility] Address: [address] [place] [address] Performed By: #### 5 8410-2 ####[facility]ORATORYCLIA [id number] [place] [address] [place] Hemoglobin (Bld) [Mass/Vol] 13.6 g/dL Normal 11.5-15.5 [facility] Comment on above: Order Comment: Speci men Type: BLOOD SPECIMENOrdering Facility: [facility] Address: [address] [place] [address] Performed By: #### 5 8410-2 ####[facility]ORATORYCLIA [id number] [place] [address] [place] MCH (RBC) [Entitic mass] 28.5 pg Normal 26.0-34.0 [facility] Comment on above: Order Comment: Speci men Type: BLOOD SPECIMENOrdering Facility: [facility] Address: [address] [place] [address] Performed By: #### 5 8410-2 ####[facility]ORATORYCLIA [id number] [address] [place] MCHC (RBC) [Mass/Vol] 33.3 g/dL Normal 30.5-36.0 [facility] Comment on above: Order Comment: Speci men Type: BLOOD SPECIMENOrdering Facility: [facility] Address: [address] [place] [address] Performed By: #### 5 8410-2 ####[facility]ORATORYCLIA [id number] [place] [address] [place] MCV (RBC) [Entitic vol] 85.7 fL Normal 80.0-100.0 [facility] Comment on above: Order Comment: Speci men Type: BLOOD SPECIMENOrdering Facility: [facility] Address: [address] [place] [address] Performed By: #### 5 8410-2 ####[facility]ORATORYCLIA [id number] [place] [address] [place] Nucleated RBC (Bld) [#/Vol] 10*3/uL Normal <0.01 [facility] Comment on above: Order Comment: Speci men Type: BLOOD SPECIMENOrdering Facility: [facility] Address: [address] [place] [address] Performed By: #### 5 8410-2 ####[facility] LABORATORYCLIA [id number] [place] [id number] [place] Platelet mean volume (Bld) [Entitic vol] 10.2 fL Normal 9.0-12.7 [facility] Comment on above: Order Comment: Speci men Type: BLOOD SPECIMENOrdering Facility: [facility] Address: [address] [place] [address] Performed By: #### 5 8410-2 ####[facility]ORATORYCLIA [id number] [place] [id number] [place] Platelets (Bld) [#/Vol] 228 10*3/uL Normal 150-400 [facility] Comment on above: Order Comment: Speci men Type: BLOOD SPECIMENOrdering Facility: [facility] Address: [address] [place] [address] Performed By: #### 5 8410-2 ####[facility]ORATORYCLIA [id number] [place] [address] [place] RBC (Bld) [#/Vol] 4.77 10*6/uL Normal 3.90-5.20 [facility] Comment on above: Order Comment: Speci men Type: BLOOD SPECIMENOrdering Facility: [facility] Address: [address] [place] [address] Performed By: #### 5 8410-2 ####[facility] LABORATORYCLIA [id number] [place] [id number] [place] WBC (Bld) [#/Vol] 8.25 10*3/uL Normal 3.70-11.00 [facility] Comment on above: Order Comment: Speci men Type: BLOOD SPECIMENOrdering Facility: [facility] Address: [address] [place] [address] Performed By: #### 5 8410-2 ####[facility] [id number] [address] OF [facility] CONSULT PROGon 01-20-2025 CONSULT PROG HNO ID: [id number] Author: SHYANNE SANCHEZ MD Service: Gastroenterology Author Type: Resident Type: Consult Progress Note Filed: 01/20/2025 14:20 Note Text: Attestation signed by Shyanne Sanchez MD at 01/20/2025 2:20 PM [facility] STAFF PHYSICIAN NOTE OF PERSONAL INVOLVEMENT [...] 20, 2025 Patient: Bony Huang Medical Record: [id number] Reason for Initial Consult: gastroparesis Overnight updates: Patient had 11 episodes of watery diarrhea after restarting diet last night. Patient reports the stool was point liquid. 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 It is brownish color without blood. Not [...] every week. (more content not included)... Normal [facility] Comprehensive metabolic 2000 panelon 01-20-2025 Albumin [Mass/Vol] 4.2 g/dL Normal 3.9-4.9 [facility] Comment on above: Order Comment: Ness jacinto Type: BLOOD SPECIMEN [facility] Address: [address] [place] [address] Performed By: #### 5 8410-2 #### [facility] CLIA [id number] [address] [place] [address] [place] ALP [Catalytic activity/Vol] 95 U/L Normal 34-123 [facility] Comment on above: Order Comment: Ness jacinto Type: BLOOD SPECIMEN [facility] Address: [address] [place] [address] Performed By: #### 5 8410-2 #### [facility] CLIA [id number] [address] [place] [address] [place] ALT [Catalytic activity/Vol] 11 U/L Normal 7-38 [facility] Comment on above: Order Comment: Speci men Type: BLOOD SPECIMEN [facility] Address: [address] [place] [address] Performed By: #### 5 8410-2 #### [facility] CLIA [id number] [place] [address] [place] Anion gap [Moles/Vol] 14 mmol/L Normal 8-15 [facility] Comment on above: Order Comment: Speci men Type: BLOOD SPECIMEN [facility] Address: [address] [place] [address] Performed By: #### 5 8410-2 #### [facility] CLIA [id number] [place] [address] [place] AST [Catalytic activity/Vol] 17 U/L Normal 13-35 [facility] Comment on above: Order Comment: Speci men Type: BLOOD SPECIMEN [facility] Address: [address] [place] [address] Performed By: #### 5 8410-2 #### [facility] CLIA [id number] [place] [address] [place] Bilirubin [Mass/Vol] 0.5 mg/dL Normal 0.2-1.3 [facility] Comment on above: Order Comment: Speci men Type: BLOOD SPECIMEN [facility] Address: [address] [place] [address] Performed By: #### 5 8410-2 #### [facility] CLIA [id number] [place] [address] [place] Calcium [Mass/Vol] 9.2 mg/dL Normal 8.5-10.2 [facility] Comment on above: Order Comment: Speci men Type: BLOOD SPECIMEN [facility] Address: [address] [place] [address] Performed By: #### 5 8410-2 #### [facility] CLIA [id number] [address] [place] Chloride [Moles/Vol] 103 mmol/L Normal 98-107 [facility] Comment on above: Order Comment: Cristyi men Type: BLOOD SPECIMEN [facility] Address: [address] [place] [address] Performed By: #### 5 8410-2 #### [facility] CLIA [id number] [place] [address] [place] CO2 [Moles/Vol] 21 mmol/L Low 22-30 [facility] Comment on above: Order Comment: Cristyi men Type: BLOOD SPECIMEN [facility] Address: [address] [place] [address] Performed By: #### 5 8410-2 #### [facility] CLIA [id number] [place] [address] [place] Creatinine [Mass/Vol] 0.84 mg/dL Normal 0.58-0.96 [facility] Comment on above: Order Comment: Speci men Type: BLOOD SPECIMEN [facility] Address: [address] [place] [address] Performed By: #### 5 8410-2 #### [facility] CLIA [id number] [place] [address] [place] eGFRcr SerPlBld CKD-EPI 2020 73 mL/min/1.73m??? Normal >=60 [facility] Comment on above: Order Comment: Speci men Type: BLOOD SPECIMEN [facility] Address: [address] [place] [address] Result Comment: Itzel mated Glomerular Filtration Rate [...] GFR. Performed By: #### 5 8410-2 #### [facility] CLIA [id number] [place] [address] [place] Glucose [Mass/Vol] 100 mg/dL High 74-99 [facility] Comment on above: Order Comment: Ness jacinto Type: BLOOD SPECIMEN [facility] Address: [address] [place] [address] Result Comment: The [place] [employer] (ADA) provides guidance for cutoff [...] Standards of Medical Care in Diabetes 2016, [place] [employer]. Diabetes Care. 2016.39(Suppl 1). Performed By: #### 5 8410-2 #### [facility] CLIA [id number] [place] [address] [place] Potassium [Moles/Vol] 4.1 mmol/L Normal 3.7-5.1 [facility] Comment on above: Order Comment: Ness jacinto Type: BLOOD SPECIMEN [facility] Address: [address] [place] [address] Performed By: #### 5 8410-2 #### [facility] CLIA [id number] [place] [address] [place] Protein [Mass/Vol] 6.9 g/dL Normal 6.3-8.0 [facility] Comment on above: Order Comment: Ness jacinto Type: BLOOD SPECIMEN [facility] Address: [address] [place] [address] Performed By: #### 5 8410-2 #### [facility] CLIA [id number] [place] [address] [place] Sodium [Moles/Vol] 138 mmol/L Normal 136-144 [facility] Comment on above: Order Comment: Speci men Type: BLOOD SPECIMEN Ordering Facility: [facility] Address: [address] [place] [address] Performed By: #### 5 8410-2 #### [facility] CLIA [id number] [place] [address] [place] Urea nitrogen [Mass/Vol] 12 mg/dL Normal 7-21 [facility] Comment on above: Order Comment: Speci men Type: BLOOD SPECIMEN Ordering Facility: [facility] Address: [address] [place] [address] Performed By: #### 5 8410-2 #### [facility] CLIA [id number] [place] [address] [place] Gastrointestinal pathogens p jasson KOREY+probe (Stl)on 01-20-2025 ADENOVIRUS F 40/41 DNA Not detected Normal Not Detecte d [facility] Comment on above: Order Comment: Speci men Type: BLOOD SPECIMEN Ordering Facility: [facility] Address: [address] [place] [address] Performed By: #### 5 8410-2 #### [facility] CLIA [id number] [place] [address] [place] ASTROVIRUS RNA Not detected Normal Not Detected [facility] Comment on above: Order Comment: Speci men Type: BLOOD SPECIMEN Ordering Facility: [facility] Address: [address] [place] [address] Performed By: #### 5 8410-2 #### [facility] CLIA [id number] [place] [address] [place] C. cayetanensis DNA KOREY+probe Ql (Unsp spec) Not detected Normal Not Detected [facility] Comment on above: Order Comment: Speci men Type: BLOOD SPECIMEN Ordering Facility: [facility] Address: [address] [place] [address] Performed By: #### 5 8410-2 #### [facility] CLIA [id number] [place] [address] [place] Campylobacter sp DNA.diarrheagenic KOREY+probe Ql (Stl) Not detected Normal Not Detected [facility] Comment on above: Order Comment: Speci men Type: BLOOD SPECIMEN Ordering Facility: [facility] Address: [address] [place] [address] Performed By: #### 5 8410-2 #### [facility] CLIA [id number] [place] [address] [facility] [place] Cryptosporidium sp DNA KOREY+probe Ql (Unsp spec) Not detected Normal Not Detected [facility] Comment on above: Order Comment: Speci men Type: BLOOD SPECIMEN Ordering Facility: [facility] Address: [address] [place] [address] Performed By: #### 5 8410-2 #### [facility] CLIA [id number] [address] [place] E. coli O157:H7 DNA KOREY+probe Ql (Unsp spec) Not applicable Normal Not detected [facility] Comment on above: Order Comment: Speci men Type: BLOOD SPECIMEN Ordering Facility: [facility] Address: [address] [place] [address] Performed By: #### 5 8410-2 #### [facility] CLIA [id number] [place] [address] [place] E. coli stx1+stx2 genes KOREY+probe Ql (Stl) Not detected Normal Not Detected [facility] Comment on above: Order Comment: Speci men Type: BLOOD SPECIMEN Ordering Facility: [facility] Address: [address] [place] [address] Performed By: #### 5 8410-2 #### [facility] CLIA [id number] [place] [address] [facility] OF [place] E. histolytica DNA KOREY+probe Ql (Unsp spec) Not detected Normal Not Detected [facility] Comment on above: Order Comment: Speci [facility] Type: BLOOD SPECIMEN Ordering Facility: [facility] Address: [address] [place] [address] Performed By: #### 5 8410-2 #### [facility] CLIA [id number] [place] [address] [facility] OF [place] ENTEROAGGREGATIVE E. COLI (EAEC) DNA Not detected Normal Not Detected [facility] Comment on above: Order Comment: Speci men Type: BLOOD SPECIMEN Ordering Facility: [facility] Address: [address] [place] [address] Performed By: #### 5 8410-2 #### [facility] CLIA [id number] [place] [address] [place] ENTEROPATHOGENIC E. COLI (EPEC) DNA Not detected Normal Not detected [facility] Comment on above: Order Comment: Speci men Type: BLOOD SPECIMEN Ordering Facility: [facility] Address: [address] [place] [address] Performed By: #### 5 8410-2 #### [facility] CLIA [id number] [place] [address] [place] ENTEROTOXIGENIC E. COLI (ETEC) DNA Not detected Normal Not Detected [facility] Comment on above: Order Comment: Speci men Type: BLOOD SPECIMEN Ordering Facility: [facility] Address: [address] [place] [address] Performed By: #### 5 8410-2 #### [facility] [id number] [place] [address] [place] G. lamblia DNA KOREY+probe Ql (Unsp spec) Not detected Normal Not Detected [facility] Comment on above: Order Comment: Speci men Type: BLOOD SPECIMEN Ordering Facility: [facility] Address: [address] [place] [address] Performed By: #### 5 8410-2 #### [facility] CLIA [id number] [place] [address] [place] NOROVIRUS GI/GII RNA Not detected Normal Not Detected [facility] Comment on above: Order Comment: Speci men Type: BLOOD SPECIMEN Ordering Facility: [facility] Address: [address] [place] [address] Performed By: #### 5 8410-2 #### [facility] CLIA [id number] [place] [address] [facility] OF [place] PLESIOMONAS SHIGELLOIDES DNA Not detected Normal Not Detected [facility] Comment on above: Order Comment: Speci men Type: BLOOD SPECIMEN Ordering Facility: [facility] Address: [address] [place] [address] Performed By: #### 5 8410-2 #### [facility] CLIA [id number] [place] [address] [place] ROTAVIRUS A RNA Not detected Normal Not Detected [facility] Comment on above: Order Comment: Speci men Type: BLOOD SPECIMEN Ordering Facility: [facility] Address: [address] [place] [address] Performed By: #### 5 8410-2 #### [facility] CLIA [id number] [place] [address] [place] Salmonella sp DNA KOREY+probe Ql (Unsp spec) Not detected Normal Not Detected [facility] Comment on above: Order Comment: Speci men Type: BLOOD SPECIMEN Ordering Facility: [facility] Address: [address] [place] [address] Performed By: #### 5 8410-2 #### [facility] CLIA [id number] [address] [place] SAPOVIRUS (GENOGROUPS I, II, IV, V) RNA Not detected Normal Not Detected [facility] Comment on above: Order Comment: Speci men Type: BLOOD SPECIMEN Ordering Facility: [facility] Address: [address] [place] [address] Performed By: #### 5 8410-2 #### [facility] CLIA [id number] [place] [address] [place] Shigella species+EIEC invasion plasmid antigen H ipaH gene KOREY+probe Ql (Stl) Not detected Normal Not Detected [facility] Comment on above: Order Comment: Speci men Type: BLOOD SPECIMEN Ordering Facility: [facility] Address: [address] [place] [address] Performed By: #### 5 8410-2 #### [facility] CLIA [id number] [place] [address] [place] V. cholerae DNA KOREY+probe Ql (Unsp spec) Not detected Normal Not Detected [facility] Comment on above: Order Comment: Speci men Type: BLOOD SPECIMEN Ordering Facility: [facility] Address: [address] [place] [address] Performed By: #### 5 8410-2 #### [facility] CLIA [id number] [place] [address] [place] Vibrio sp DNA KOREY+probe Nom (Unsp spec) Not detected Normal Not Detected [facility] Comment on above: Order Comment: Speci men Type: BLOOD SPECIMEN Ordering Facility: [facility] Address: [address] [place] [address] Performed By: #### 5 8410-2 #### [facility] CLIA [id number] [place] [address] [place] Yersinia sp DNA KOREY+probe Nom (Unsp spec) Not detected Normal Not Detected [facility] Comment on above: Order Comment: Speci men Type: BLOOD SPECIMEN Ordering Facility: [facility] Address: [address] [place] [address] Performed By: #### 5 8410-2 #### [facility] CLIA [id number] [place] [address] [place] Magnesium SerPl-mCncon 01-20 Magnesium [Mass/Vol] 1.8 mg/dL Normal 1.7-2.3 [facility] Comment on above: Order Comment: Speci men Type: BLOOD SPECIMEN Ordering Facility: [facility] Address: [address] [place] [address] Performed By: #### 5 8410-2 #### [facility] CLIA [id number] [place] [address] [place] ALLIED HEALTHon 01-19-2025 ALLIED HEALTH HNO ID: [id number] Author: RITA MCCORMACK RT(R) Service: Radiology Author Type: Dental Technology Advisor Type: Allied Health Filed: 01/19/2025 12:58 Note [...] PATIENT PRESENTS WITH AN IMPLANTABLE OR ATTACHED SPEAKING UNIT ASSEMBLER: No RADIOLOGY DEPARTMENT: General X-ray: Exam(s) Completed: Abdomen X-Ray: Abdomen PERIPHERAL IV DATA: Not applicable SIGNED BY: RT Casey(R) January 19, 2025 12:58 PM Normal [facility] CBC panel Auto (Bld)on 01-19 Erythrocyte distribution width (RBC) [Ratio] 13.1 % Normal 11.5-15.0 [facility] Comment on above: Order Comment: Ness jacinto Type: BLOOD SPECIMEN Ordering Facility: [facility] Address: [address] [place] [address] Performed By: #### 5 8410-2 #### [facility] CLIA [id number] [place] [address] [place] Hematocrit (Bld) [Volume fraction] 38.1 % Normal 36.0-46.0 [facility] Comment on above: Order Comment: eNss jacinto Type: BLOOD SPECIMEN Ordering Facility: [facility] Address: [address] [place] [address] Performed By: #### 5 8410-2 #### [facility] CLIA [id number] [address] [place] [address] [place] Hemoglobin (Bld) [Mass/Vol] 12.6 g/dL Normal 11.5-15.5 [facility] Comment on above: Order Comment: Ness jacinto Type: BLOOD SPECIMEN Ordering Facility: [facility] Address: [address] [place] [address] Performed By: #### 5 8410-2 #### [facility] CLIA [id number] [place] [address] [place] MCH (RBC) [Entitic mass] 28.5 pg Normal 26.0-34.0 [facility] Comment on above: Order Comment: Speci men Type: BLOOD SPECIMEN Ordering Facility: [facility] Address: [address] [place] [address] Performed By: #### 5 8410-2 #### [facility] CLIA [id number] [place] [address] [place] MCHC (RBC) [Mass/Vol] 33.1 g/dL Normal 30.5-36.0 [facility] Comment on above: Order Comment: Speci men Type: BLOOD SPECIMEN Ordering Facility: [facility] Address: [address] [place] [address] Performed By: #### 5 8410-2 #### [facility] CLIA [id number] [place] [address] [place] MCV (RBC) [Entitic vol] 86.2 fL Normal 80.0-100.0 [facility] Comment on above: Order Comment: Speci men Type: BLOOD SPECIMEN Ordering Facility: [facility] Address: [address] [place] [address] Performed By: #### 5 8410-2 #### [facility] CLIA [id number] [place] [address] [place] Nucleated RBC (Bld) [#/Vol] 10*3/uL Normal <0.01 [facility] Comment on above: Order Comment: Speci men Type: BLOOD SPECIMEN Ordering Facility: [facility] Address: [address] [place] [address] Performed By: #### 5 8410-2 #### [facility] CLIA [id number] [place] [address] [place] Platelet mean volume (Bld) [Entitic vol] 10.0 fL Normal 9.0-12.7 [facility] Comment on above: Order Comment: Ness jacinto Type: BLOOD SPECIMEN Ordering Facility: [facility] Address: [address] [place] [address] Performed By: #### 5 8410-2 #### [facility] CLIA [id number] [place] [id number] [place] Platelets (Bld) [#/Vol] 228 10*3/uL Normal 150-400 [facility] Comment on above: Order Comment: Ness jacinto Type: BLOOD SPECIMEN Ordering Facility: [facility] Address: [address] [place] [address] Performed By: #### 5 8410-2 #### [facility] CLIA [id number] [place] [address] [place] RBC (Bld) [#/Vol] 4.42 10*6/uL Normal 3.90-5.20 [facility] Comment on above: Order Comment: Cristyi ophelia Type: BLOOD SPECIMEN Ordering Facility: [facility] Address: [address] [place] [address] Performed By: #### 5 8410-2 #### [facility] CLIA [id number] [place] [address] [place] WBC (Bld) [#/Vol] 5.01 10*3/uL Normal 3.70-11.00 [facility] Comment on above: Order Comment: Ness jacinto Type: BLOOD SPECIMEN Ordering Facility: [facility] Address: [address] [place] [address] Performed By: #### 5 8410-2 #### [facility] CLIA [id number] [place] [address] OF [facility] CONSULTon 01-19-2025 CONSULT HNO ID: [id number] Author: SHYANNE SANCHEZ MD Service: Gastroenterology Author Type: Resident Type: Consults Filed: 01/20/2025 10:59 Note Text: Attestation signed by Shyanne Sanchez MD at 01/20/2025 10:59 AM (Updated) [facility] STAFF PHYSICIAN NOTE OF PERSONAL INVOLVEMENT [...] discharge from (more content not included)... Normal [facility] Comprehensive metabolic 2000 panelon 01-19-2025 Albumin [Mass/Vol] 3.7 g/dL Low 3.9-4.9 [facility] Comment on above: Order Comment: Speci men Type: BLOOD SPECIMENOrdering Facility: [facility] Address: [address] [place] [address] Performed By: #### 1 9123-9, 74892-4 ####[facility]CLIA [id number] [place] [address] [place] ALP [Catalytic activity/Vol] 84 U/L Normal 34-123 [facility] Comment on above: Order Comment: Speci men Type: BLOOD SPECIMENOrdering Facility: [facility] Address: [address] [place] [address] Performed By: #### 1 9123-9, 32514-3 ####[facility]IA [id number] [place] [address] [place] ALT [Catalytic activity/Vol] 9 U/L Normal 7-38 [facility] Comment on above: Order Comment: Speci men Type: BLOOD SPECIMENOrdering Facility: [facility] Address: [address] [place] [address] Performed By: #### 1 9123-9, 92281-4 ####[facility]CLIA [id number] [place] [id number] [place] Anion gap [Moles/Vol] 11 mmol/L Normal 8-15 [facility] Comment on above: Order Comment: Speci men Type: BLOOD SPECIMENOrdering Facility: [facility] Address: [address] [place] [address] Performed By: #### 1 9123-9, 65564-2 ####[facility]CLIA [id number] [place] [id number] [place] AST [Catalytic activity/Vol] 15 U/L Normal 13-35 [facility] Comment on above: Order Comment: Speci men Type: BLOOD SPECIMENOrdering Facility: [facility] Address: [address] [place] [address] Performed By: #### 1 9123-9, 77463-4 ####[facility]CLIA [id number] [place] [id number] [place] Bilirubin [Mass/Vol] 0.6 mg/dL Normal 0.2-1.3 [facility] Comment on above: Order Comment: Speci men Type: BLOOD SPECIMENOrdering Facility: [facility] Address: [address] [place] [address] Performed By: #### 1 9123-9, 32100-9 ####[facility]CLIA [id number] [place] [address] [place] Calcium [Mass/Vol] 8.7 mg/dL Normal 8.5-10.2 [facility] Comment on above: Order Comment: Speci men Type: BLOOD SPECIMENOrdering Facility: [facility] Address: [address] [place] [address] Performed By: #### 1 9123-9, 70790-5 ####[facility]CLIA [id number] [place] [id number] [place] Chloride [Moles/Vol] 103 mmol/L Normal 98-107 [facility] Comment on above: Order Comment: Speci men Type: BLOOD SPECIMENOrdering Facility: [facility] Address: [address] [place] [address] Performed By: #### 1 9123-9, 32746-7 ####[facility]ORYCLIA [id number] [place] [id number] [place] CO2 [Moles/Vol] 26 mmol/L Normal 22-30 [facility] Comment on above: Order Comment: Ness jacinto Type: BLOOD SPECIMENOrdering Facility: [facility] Address: [address] [place] [address] Performed By: #### 1 9123-9, 32175-0 ####[facility]ORYCLIA [id number] [place] [id number] [place] Creatinine [Mass/Vol] 1.05 mg/dL High 0.58-0.96 [facility] Comment on above: Order Comment: Ness jacinto Type: BLOOD SPECIMENOrdering Facility: [facility] Address: [address] [place] [address] Performed By: #### 1 9123-9, ####[facility]ORYCLIA [id number] [place] [id number] [place] eGFRcr SerPlBld CKD-EPI 2020 56 mL/min/1.73m??? Low >=60 [facility] Comment on above: Order Comment: Ness jacinto Type: BLOOD SPECIMENOrdering Facility: [facility] Address: [address] [place] [address] Result Comment: Itzel mated Glomerular Filtration Rate [...] actual GFR. Performed By: #### 1 9123-9, ####[facility]ORYCLIA [id number] [place] [address] [place] Glucose [Mass/Vol] 99 mg/dL Normal 74-99 [facility] Comment on above: Order Comment: Ness ophelia Type: BLOOD SPECIMENOrdering Facility: [facility] Address: [address] [place] [address] Result Comment: The [place] [employer] (ADA) provides guidance for cutoff [...] Standards of Medical Care in Diabetes 2016, [place] [employer]. Diabetes Care. 2016.39(Suppl 1). Performed By: #### 1 9123-9, ####[facility]ORYCLIA [id number] [place] [address] [place] Potassium [Moles/Vol] 3.8 mmol/L Normal 3.7-5.1 [facility] Comment on above: Order Comment: Ness jacinto Type: BLOOD SPECIMENOrdering Facility: [facility] Address: [address] [place] [address] Performed By: #### 1 91239, ####[facility] [id number] [place] [address] [place] Protein [Mass/Vol] 6.2 g/dL Low 6.3-8.0 [facility] Comment on above: Order Comment: Ness jacinto Type: BLOOD SPECIMENOrdering Facility: [facility] Address: [address] [place] [address] Performed By: #### 1 239, ####[facility]ORYCLIA [id number] [place] [address] [place] Sodium [Moles/Vol] 140 mmol/L Normal 136-144 [facility] Comment on above: Order Comment: Ness jacinto Type: BLOOD SPECIMENOrdering Facility: [facility] Address: [address] [place] [address] Performed By: #### 1 9123-9, ####[facility]ATORYCLIA [id number] [place] [address] [place] Urea nitrogen [Mass/Vol] 15 mg/dL Normal 7-21 [facility] Comment on above: Order Comment: Speci men Type: BLOOD SPECIMENOrdering Facility: [facility] Address: [facility] [place] [facility] [place] [address] Performed By: #### 1 9123-9, 43146-8 ####[facility]ATORYCLIA [id number] [place] [id number] [place] Magnesium SerPl-mCncon 01-19 Magnesium [Mass/Vol] 1.9 mg/dL Normal 1.7-2.3 [facility] Comment on above: Order Comment: Speci men Type: BLOOD SPECIMENOrdering Facility: [facility] Address: [address] [place] [address] Performed By: #### 1 9123-9, 10730-4 ####[facility]ORATORYCLIA [id number] [place] [id number] [place] NURSING PROGon 01-19-2025 NURSING PROG HNO ID: [id number] Author: RIA XAVIER RN Service: Nursing Author [...] 1910 Report was given to oncoming nurse. [facility] NUTRITIONon 01-19-2025 NUTRITION HNO ID: [id number] Author: ESTHER RAYMOND RD Service: Nutrition Therapy [...] of GERD, hypothyroidism, gastroparesis who presented to [facility] as a transfer from another hospital with [...] Weight Type: Admit weight Estimated kilocalorie needs: 5849-5569 Calorie Calculation Method: 25-30 kcals/kg Estimated protein [...] January 19, 2025 TIME: 2:48 PM Normal [facility] XR ABDOMEN 1V SUPINEon 01-19 XR ABDOMEN [...] 19 2025 1:07PM EST [id number] CN Normal [facility] CBC + DIFFon 01-18-2025 Baso # 0.03 x10EE3/UL Normal 0.00 - 0.10 [facility] Comment on above: Performed By: #### 2 [address]655 ####[place] [address] Basophils/100 WBC (Bld) 0.3 % Normal 0.0 - 2.0 [facility] Comment on above: Performed By: #### 2 78562 ####[facility],[address] [place] [address] CBC + DIFF Normal [facility] Comment on above: Result Comment: CBC- COMPLETE BLOOD COUNT Performed By: #### 2 41983 ####[facility],[address] [place], [place] [id number] EO # 0.07 x10EE3/UL Normal 0.00 - 0.50 [facility] Comment on above: Performed By: #### 2 18298 ####[facility],[address] [place] [address] Eosinophils/100 WBC (Bld) 0.7 % Normal 0.0 - 7.0 [facility] Comment on above: Performed By: #### 2 73946 ####[facility],[address] [place], [place] [id number] Erythrocyte distribution width (RBC) [Ratio] 13.8 % Normal 12.0 - 15.6 [facility] Comment on above: Performed By: #### 2 19022 ####[facility],[address] [place] [address] Hematocrit (Bld) [Volume fraction] 49.1 % High 34.0 - 46.0 [facility] Comment on above: Performed By: #### 2 81013 ####[place] [address] Hemoglobin (Bld) [Mass/Vol] 16.8 g/dL High 12.0 - 16.0 [facility] Comment on above: Performed By: #### 2 66694 ####[facility],[address] [place] [address] Lymph # 1.41 x10EE3/UL Normal 0.80 - 2.80 [facility] Comment on above: Performed By: #### 2 57265 ####[facility],[address] [place], [place] [id number] Lymphocytes/100 WBC (Bld) 13.1 % Low 20.0 - 45.0 [facility] Comment on above: Performed By: #### 2 64298 ####[address] [address] MANUAL DIFF N/A Normal [facility] Comment on above: Performed By: #### 2 06395 ####[address] [address] MCH (RBC) [Entitic mass] 29 pg Normal 27 - 33 [facility] Comment on above: Performed By: #### 2 72691 ####[facility],[address] [place] [address] 89595 MCHC 34 X10 3 Normal 32 - 36 [facility] Comment on above: Performed By: #### 2 74400 ####[facility],[address] [place] [address] 94971 MCV (RBC) [Entitic vol] 84 fL Normal 80 - 99 [facility] Comment on above: Performed By: #### 2 77216 ####[facility],[address] [place] [address] 78086 Merrick # 0.71 x10EE3/UL Normal 0.20 - 1.00 [facility] Comment on above: Performed By: #### 2 09177 ####[facility],[address] [place] [address] 28441 MONOS % 6.7 % Normal 0.0 - 10.0 [facility] Comment on above: Performed By: #### 2 19149 ####[facility],[address] [place] [address] 75663 Morphology Julian (Bld) [Interp] N/A Normal [facility] Comment on above: Performed By: #### 2 58597 ####[facility],[address] [place] [address] 36088 Neut # 8.51 x10EE3/UL High 1.50 - 7.10 [facility] Comment on above: Performed By: #### 2 92451 ####[facility],[address] [place] [address] 63614 Neutrophils/100 WBC (Bld) 79.3 % High 46.0 - 76.0 [facility] Comment on above: Performed By: #### 2 68898 ####[facility],[address] [place] [address] 25322 PLATELET 336 x10EE3/UL Normal 150 - 450 [facility] Comment on above: Performed By: #### 2 65815 ####[facility],[address] [place] [address] 16575 Platelet mean volume (Bld) [Entitic vol] 7.7 fL Normal 6.6 - 10.5 [facility] Comment on above: Result Comment: AUTO MATED DIFFERENTIAL Performed By: #### 2 44935 ####[facility],[address] [place], [place] [id number] RBC 5.82 x 10EE6/UL High 4.10 - 5.30 [facility] Comment on above: Performed By: #### 2 79982 ####[facility],[address] [place], [place] [id number] WBC 10.7 x 10EE3/UL Normal 4.5 - 10.8 [facility] Comment on above: Performed By: #### 2 23179 ####[facility],[address] [place], [place] [id number] CBC panel Auto (Bld)on 01-18 Erythrocyte distribution width (RBC) [Ratio] 13.2 % Normal 11.5-15.0 [facility] Comment on above: Order Comment: Speci men Type: BLOOD SPECIMEN Ordering Facility: [facility] Address: [address] [place] [address] Performed By: #### 5 8410-2 #### [facility] CLIA [id number] [place] [address] [place] Hematocrit (Bld) [Volume fraction] 37.5 % Normal 36.0-46.0 [facility] Comment on above: Order Comment: Speci men Type: BLOOD SPECIMEN Ordering Facility: [facility] Address: [address] [place] [address] Performed By: #### 5 8410-2 #### [facility] CLIA [id number] [place] [address] [place] Hemoglobin (Bld) [Mass/Vol] 13.0 g/dL Normal 11.5-15.5 [facility] Comment on above: Order Comment: Speci men Type: BLOOD SPECIMEN Ordering Facility: [facility] Address: [address] [place] [address] Performed By: #### 5 8410-2 #### [facility] CLIA [id number] [place] [address] [place] MCH (RBC) [Entitic mass] 28.8 pg Normal 26.0-34.0 [facility] Comment on above: Order Comment: Speci men Type: BLOOD SPECIMEN Ordering Facility: [facility] Address: [address] [place] [address] Performed By: #### 5 8410-2 #### [facility] CLIA [id number] [place] [address] [place] MCHC (RBC) [Mass/Vol] 34.7 g/dL Normal 30.5-36.0 [facility] Comment on above: Order Comment: Speci men Type: BLOOD SPECIMEN Ordering Facility: [facility] Address: [address] [place] [address] Performed By: #### 5 8410-2 #### [facility] CLIA [id number] [place] [address] [place] MCV (RBC) [Entitic vol] 83.1 fL Normal 80.0-100.0 [facility] Comment on above: Order Comment: Speci men Type: BLOOD SPECIMEN Ordering Facility: [facility] Address: [address] [place] [address] Performed By: #### 5 8410-2 #### [facility] CLIA [id number] [place] [address] [place] Nucleated RBC (Bld) [#/Vol] 10*3/uL Normal <0.01 [facility] Comment on above: Order Comment: Speci men Type: BLOOD SPECIMEN Ordering Facility: [facility] Address: [address] [place] [address] Performed By: #### 5 8410-2 #### [facility] CLIA [id number] [place] [address] [place] Platelet mean volume (Bld) [Entitic vol] 9.8 fL Normal 9.0-12.7 [facility] Comment on above: Order Comment: Speci men Type: BLOOD SPECIMEN Ordering Facility: [facility] Address: [address] [place] [address] Performed By: #### 5 8410-2 #### [facility] CLIA [id number] [place] [address] [place] Platelets (Bld) [#/Vol] 241 10*3/uL Normal 150-400 [facility] Comment on above: Order Comment: Speci men Type: BLOOD SPECIMEN Ordering Facility: [facility] Address: [address] [place] [address] Performed By: #### 5 8410-2 #### [facility] CLIA [id number] [place] [address] [place] RBC (Bld) [#/Vol] 4.51 10*6/uL Normal 3.90-5.20 [facility] Comment on above: Order Comment: Speci men Type: BLOOD SPECIMEN Ordering Facility: [facility] Address: [address] [place] [address] Performed By: #### 5 8410-2 #### [facility] CLIA [id number] [place] [address] [place] WBC (Bld) [#/Vol] 9.29 10*3/uL Normal 3.70-11.00 [facility] Comment on above: Order Comment: Speci men Type: BLOOD SPECIMEN Ordering Facility: [facility] Address: [address] [place] [address] Performed By: #### 5 8410-2 #### [facility] CLIA [id number] [place] [address] [place] CMP with eGFRon 01-18-2025 AGE 75 years Normal [facility] Comment on above: Performed By: #### 2 13460 ####[facility],[address] [place] [address] 69658 Albumin [Mass/Vol] 3.6 g/dL Normal 3.4 - 5.0 [facility] Comment on above: Performed By: #### 2 58274 ####[facility],[address] [place] [address] 66163 Albumin/Globulin [Mass ratio] 1.0 {ratio} Normal 0.9 - 1.6 [facility] Comment on above: Performed By: #### 2 02481 ####[facility],[address] [place] [address] 48816 ALK PHOS 93 U/L Normal 46 - 116 [facility] Comment on above: Performed By: #### 2 24278 ####[facility],[address] [place] [address] 40615 ALT [Catalytic activity/Vol] 16 U/L Normal 16 - 63 [facility] Comment on above: Performed By: #### 2 00734 ####[facility],[address] [place] [address] 45287 Anion gap [Moles/Vol] 17 mmol/L Normal 10 - 20 [facility] Comment on above: Performed By: #### 2 36414 ####[facility],[address] [place] [address] 67653 AST [Catalytic activity/Vol] 20 U/L Normal 13 - 39 [facility] Comment on above: Performed By: #### 2 56010 ####[facility],[address] [place] [address] 88922 B/C RATIO 9 ratio Normal 0 - 30 [facility] Comment on above: Performed By: #### 2 99023 ####[facility],[address] [place] [address] 03864 Bilirubin [Mass/Vol] 0.5 mg/dL Normal 0.2 - 1.0 [facility] Comment on above: Performed By: #### 2 68703 ####[facility],[address] [place] [address] 68792 Calcium [Mass/Vol] 9.0 mg/dL Normal 8.5 - 10.1 [facility] Comment on above: Result Comment: CALC IUM REPEATED Performed By: #### 2 75357 ####[facility],[address] [place] [address] 97863 Chloride [Moles/Vol] 102 mmol/L Normal 98 - 107 [facility] Comment on above: Performed By: #### 2 92847 ####[facility],[address] [place] [address] 89565 CMP with eGFR Normal [facility] Comment on above: Result Comment: COMP REHENSIVE METABOLIC PANEL Performed By: #### 2 15256 ####[facility],[address] [place] [address] 93352 CO2 [Moles/Vol] 28.2 mmol/L Normal 21.0 - 32.0 [facility] Comment on above: Performed By: #### 2 98682 ####[facility],[address] [place] [address] 16449 Creatinine [Mass/Vol] 1.99 mg/dL High 0.55 - 1.02 [facility] Comment on above: Performed By: #### 2 30356 ####[facility],[address] [place] [address] 13462 eGFR 24 ML/MINUTE Low 60 - 999 [facility] Comment on above: Performed By: #### 2 06016 ####[facility],[address] [place] [address] 57764 eGFR(AA) 30 ML/MINUTE Low 60 - 999 [facility] Comment on above: Result Comment: ACCO RDING TO THE NATIONAL KIDNEY DISEASE EDUCATION PROGRAM(NKDE), A NORMAL eGFRIS A VALUE GREATER THAN OR EQUAL TO 60 ML/MIN/1.73 SQ METERS.CHRONIC KIDNEY DISEASE: <60mL/MIN/1.73 SQ METERSKIDNEY FAILURE: <15mL/MIN/1.73 SQ METERSTHIS TEST SHOULD ONLY BE USED FOR PATIENTS 18 YEARS OF AGE AND OLDER. Performed By: #### 2 94560 ####[facility],[address] [place] [address] 40100 Globulin (S) [Mass/Vol] 3.5 g/dL Normal 1.5 - 3.8 [facility] Comment on above: Performed By: #### 2 51070 ####[facility],[address] [place] [address] 81419 Glucose [Mass/Vol] 108 mg/dL High 74 - 106 [facility] Comment on above: Performed By: #### 2 40231 ####[address] [address] Potassium [Moles/Vol] 3.4 mmol/L Low 3.5 - 5.1 [facility] Comment on above: Performed By: #### 2 92257 ####[place] [id number] Protein [Mass/Vol] 7.1 g/dL Normal 6.4 - 8.2 [facility] Comment on above: Performed By: #### 2 36113 ####[facility],[address] [place] [address] 95365 Sodium [Moles/Vol] 144 mmol/L Normal 136 - 145 [facility] Comment on above: Performed By: #### 2 84450 ####[facility],[address] [place] [address] 41684 Urea nitrogen [Mass/Vol] 18 mg/dL Normal 7 - 18 [facility] Comment on above: Performed By: #### 2 43154 ####[address] [address] AGE 75 years Normal [facility] Comment on above: Performed By: #### 2 19831 ####[address] 42967 Albumin [Mass/Vol] 4.9 g/dL Normal 3.4 - 5.0 [facility] Comment on above: Performed By: #### 2 11856 ####[facility],[address] [place] [address] 47958 Albumin/Globulin [Mass ratio] 1.1 {ratio} Normal 0.9 - 1.6 [facility] Comment on above: Performed By: #### 2 36610 ####[facility],[address] [place] [address] 52112 ALK PHOS 122 U/L High 46 - 116 [facility] Comment on above: Performed By: #### 2 13095 ####[facility],[address] [place] [address] 46050 ALT [Catalytic activity/Vol] 23 U/L Normal 16 - 63 [facility] Comment on above: Performed By: #### 2 30641 ####[facility],[address] [place] [address] 29410 Anion gap [Moles/Vol] 22 mmol/L High 10 - 20 [facility] Comment on above: Performed By: #### 2 57782 ####[facility],[address] [place] [address] 14966 AST [Catalytic activity/Vol] 20 U/L Normal 13 - 39 [facility] Comment on above: Performed By: #### 2 93063 ####[facility],[address] [place] [address] 42942 B/C RATIO 8 ratio Normal 0 - 30 [facility] Comment on above: Performed By: #### 2 53809 ####[facility],[address] [place] [address] 22566 Bilirubin [Mass/Vol] 0.6 mg/dL Normal 0.2 - 1.0 [facility] Comment on above: Performed By: #### 2 00684 ####[facility],[address] [place] [address] 57287 Calcium [Mass/Vol] 10.6 mg/dL High 8.5 - 10.1 [facility] Comment on above: Performed By: #### 2 48016 ####[facility],[address] [place], [place] [address] Chloride [Moles/Vol] 95 mmol/L Low 98 - 107 [facility] Comment on above: Performed By: #### 2 11338 ####[facility],[address] [place] [address] CMP with eGFR Normal [facility] Comment on above: Result Comment: COMP REHENSIVE METABOLIC PANEL Performed By: #### 2 87855 ####[facility],[address] [place] [address] CO2 [Moles/Vol] 28.2 mmol/L Normal 21.0 - 32.0 [facility] Comment on above: Performed By: #### 2 51551 ####[facility],[address] [place], [place] [address] Creatinine [Mass/Vol] 2.38 mg/dL High 0.55 - 1.02 [facility] Comment on above: Performed By: #### 2 25823 ####[facility],[address] [place], [place] [address] eGFR 20 ML/MINUTE Low 60 - 999 [facility] Comment on above: Performed By: #### 2 01475 ####[facility],[address] [place], [place] [id number] eGFR(AA) 24 ML/MINUTE Low 60 - 999 [facility] Comment on above: Result Comment: ACCO RDING TO THE NATIONAL KIDNEY DISEASE EDUCATION PROGRAM(NKDE), A NORMAL eGFRIS A VALUE GREATER THAN OR EQUAL TO 60 ML/MIN/1.73 SQ METERS.CHRONIC KIDNEY DISEASE: <60mL/MIN/1.73 SQ METERSKIDNEY FAILURE: <15mL/MIN/1.73 SQ METERSTHIS TEST SHOULD ONLY BE USED FOR PATIENTS 18 YEARS OF AGE AND OLDER. Performed By: #### 2 66632 ####[facility],[address] [place] [address] 30497 Globulin (S) [Mass/Vol] 4.3 g/dL High 1.5 - 3.8 [facility] Comment on above: Performed By: #### 2 37501 ####[facility],[address] [place] [address] 27169 Glucose [Mass/Vol] 174 mg/dL High 74 - 106 [facility] Comment on above: Performed By: #### 2 02694 ####[facility],[address] [place] [address] 30053 Potassium [Moles/Vol] 3.3 mmol/L Low 3.5 - 5.1 [facility] Comment on above: Performed By: #### 2 64460 ####[facility],[address] [place] [address] 44307 Protein [Mass/Vol] 9.2 g/dL High 6.4 - 8.2 [facility] Comment on above: Performed By: #### 2 36661 ####[facility],[address] [place] [address] 44715 Sodium [Moles/Vol] 142 mmol/L Normal 136 - 145 [facility] Comment on above: Performed By: #### 2 97848 ####[facility],[address] [place] [address] 97611 Urea nitrogen [Mass/Vol] 18 mg/dL Normal 7 - 18 [facility] Comment on above: Performed By: #### 2 81350 ####[facility],[address] [place] [address] 75185 Lynette 01-18-2025 LISY Telephone ([facility]) BONY HUANG ([id number]) 1950 F Date Time Provider Department 01/18/25 JAKE BRITTON [facility] During your visit today, we recorded the [...] Status:Closed by JAKE BRITTON on 01/18/25 Normal [facility] metabolic 2000 panelon 01-18-2025 Albumin [Mass/Vol] 4.0 g/dL Normal 3.9-4.9 [facility] Comment on above: Order Comment: Speci men Type: BLOOD SPECIMEN Ordering Facility: [facility] Address: [address] [place] [address] Performed By: #### 5 8410-2 #### [facility] CLIA [id number] [place] [address] [place] ALP [Catalytic activity/Vol] 93 U/L Normal 34-123 [facility] Comment on above: Order Comment: Speci men Type: BLOOD SPECIMEN Ordering Facility: [facility] Address: [address] [place] [address] Performed By: #### 5 8410-2 #### [facility] CLIA [id number] [place] [address] [place] ALT [Catalytic activity/Vol] 10 U/L Normal 7-38 [facility] Comment on above: Order Comment: Speci men Type: BLOOD SPECIMEN Ordering Facility: [facility] Address: [address] [place] [address] Performed By: #### 5 8410-2 #### [facility] CLIA [id number] [place] [address] [place] Anion gap [Moles/Vol] 15 mmol/L Normal 8-15 [facility] Comment on above: Order Comment: Speci men Type: BLOOD SPECIMEN Ordering Facility: [facility] Address: [address] [place] [address] Performed By: #### 5 8410-2 #### [facility] CLIA [id number] [place] [address] [place] AST [Catalytic activity/Vol] 14 U/L Normal 13-35 [facility] Comment on above: Order Comment: Speci men Type: BLOOD SPECIMEN Ordering Facility: [facility] Address: [address] [place] [address] Performed By: #### 5 8410-2 #### [facility] CLIA [id number] [place] [address] [place] Bilirubin [Mass/Vol] 0.5 mg/dL Normal 0.2-1.3 [facility] Comment on above: Order Comment: Speci men Type: BLOOD SPECIMEN Ordering Facility: [facility] Address: [address] [place] [address] Performed By: #### 5 8410-2 #### [facility] CLIA [id number] [place] [address] [place] Calcium [Mass/Vol] 8.5 mg/dL Normal 8.5-10.2 [facility] Comment on above: Order Comment: Speci men Type: BLOOD SPECIMEN Ordering Facility: [facility] Address: [address] [place] [address] Performed By: #### 5 8410-2 #### [facility] CLIA [id number] [place] [address] [place] Chloride [Moles/Vol] 103 mmol/L Normal 98-107 [facility] Comment on above: Order Comment: Speci men Type: BLOOD SPECIMEN Ordering Facility: [facility] Address: [address] [place] [address] Performed By: #### 5 8410-2 #### [facility] CLIA [id number] [place] [address] [place] CO2 [Moles/Vol] 23 mmol/L Normal 22-30 [facility] Comment on above: Order Comment: Speci men Type: BLOOD SPECIMEN Ordering Facility: [facility] Address: [address] [place] [address] Performed By: #### 5 8410-2 #### [facility] CLIA [id number] [place] [id number] [place] Creatinine [Mass/Vol] 1.46 mg/dL High 0.58-0.96 [facility] Comment on above: Order Comment: Ness jacinto Type: BLOOD SPECIMEN Ordering Facility: [facility] Address: [address] [place] [address] Performed By: #### 5 8410-2 #### [facility] CLIA [id number] [place] [address] [place] eGFRcr SerPlBld CKD-EPI 2020 38 mL/min/1.73m??? Low >=60 [facility] Comment on above: Order Comment: Ness jacinto Type: BLOOD SPECIMEN Ordering Facility: [facility] Address: [address] [place] [address] Result Comment: Itzel mated Glomerular Filtration Rate [...] GFR. Performed By: #### 5 8410-2 #### [facility] CLIA [id number] [place] [address] [place] Glucose [Mass/Vol] 93 mg/dL Normal 74-99 [facility] Comment on above: Order Comment: Ness jacinto Type: BLOOD SPECIMEN Ordering Facility: [facility] Address: [address] [place] [address] Result Comment: The [place] [employer] (ADA) provides guidance for cutoff [...] Standards of Medical Care in Diabetes 2016, [place] [employer]. Diabetes Care. 2016.39(Suppl 1). Performed By: #### 5 8410-2 #### [facility] CLIA [id number] [place] [address] [place] Potassium [Moles/Vol] 3.6 mmol/L Low 3.7-5.1 [facility] Comment on above: Order Comment: Cristyi ophelia Type: BLOOD SPECIMEN Ordering Facility: [facility] Address: [address] [place] [address] Performed By: #### 5 8410-2 #### [facility] CLIA [id number] [place] [address] [place] Protein [Mass/Vol] 6.6 g/dL Normal 6.3-8.0 [facility] Comment on above: Order Comment: Speci men Type: BLOOD SPECIMEN Ordering Facility: [facility] Address: [address] [place] [address] Performed By: #### 5 8410-2 #### [facility] CLIA [id number] [place] [address] [place] Sodium [Moles/Vol] 141 mmol/L Normal 136-144 [facility] Comment on above: Order Comment: Cristyi men Type: BLOOD SPECIMEN Ordering Facility: [facility] Address: [address] [place] [address] Performed By: #### 5 8410-2 #### [facility] CLIA [id number] [place] [address] [place] Urea nitrogen [Mass/Vol] 19 mg/dL Normal 7-21 [facility] Comment on above: Order Comment: Cristyi ophelia Type: BLOOD SPECIMEN Ordering Facility: [facility] Address: [address] [place] [address] Performed By: #### 5 8410-2 #### [facility] CLIA [id number] [address] [place] ED MED ADMINISTRATION DETAIL on 01-18-2025 ED MED ADMINISTRATION DETAIL Normal [facility] ED MED ADMINISTRATION DETAIL Normal [facility] ED NURSES CLINICAL NOTEon ED NURSES CLINICAL NOTE Normal [facility] ED NURSES CLINICAL NOTE Normal [facility] ED ORDER SHEET (CPOE ONLY)on 01-18-2025 ED ORDER SHEET (CPOE ONLY) Normal [facility] ED ORDER SHEET (CPOE ONLY) Normal [facility] ED PHYSICIAN CLINICAL REPORT on 01-18-2025 ED PHYSICIAN CLINICAL REPORT Normal [facility] ED PHYSICIAN CLINICAL REPORT Normal [facility] ED SUPER BILLon 01-18-2025 ED SUPER BILL Normal [facility] ED SUPER BILL Normal [facility] ED VISIT SUMMARYon ED VISIT SUMMARY Normal [facility] ED VISIT SUMMARY Normal [facility] ED VITALS FLOW SHEETon 01-18 ED VITALS FLOW SHEET Normal [facility] ED VITALS FLOW SHEET Normal [facility] HISTORY PHYSICALon HISTORY PHYSICAL HNO ID: [id number] Author: THERESA MATTHEWS MD Service: General Internal [...] went to ER in her hometown of [facility] for feeling generally weak after multiple rounds [...] for further evaluation. 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 [facility] TOTAL ABDOMINAL HYSTERECT W/WO RMVL TUBE OVARY FAMILY HISTORY: FAMILY HISTORY Problem Relation Age of Onset Thyroid Mother surgical hypothyroidism Lipids Mother Breast Cancer Mother macular degeneration other (atrial fibrillation) Mother Coronary Artery Disease Father premature with CO at around 27yo Colon Cancer Sister other [...] depressed. HEMATOLOGY/LYMPHOL (more content not included)... 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 [facility] TOTAL ABDOMINAL HYSTERECT W/WO RMVL TUBE OVARY FAMILY HISTORY Problem Relation Age of Onset Thyroid Mother surgical hypothyroidism Lipids Mother Breast Cancer Mother macular degeneration other (atrial fibrillation) Mother Coronary Artery Disease Father premature with CO at around 27yo Colon Cancer Sister other [...] cm (5' (more content not included)... Normal [facility] LIPASEon 01-18-2025 Lipase [Catalytic activity/Vol] 89.0 U/L High 15.0 - 78.0 [facility] Comment on above: Result Comment: *PLE ASE NOTE THAT RANGES FOR LIPASE HAVE CHANGED OF 04/12/23 DUE TO AN ASSAYUPDATE BY THE PARTS COORDINATOR.THE NEW ASSAY RANGE IS 6-250 U/L, WITH A REFERENCERANGE OF 16-77 U/L. Performed By: #### 2 82661 ####[facility],[address] [place] [address] 99151 [facility] Magnesium [Mass/Vol] 1.8 mg/dL Normal 1.7-2.3 [facility] Comment on above: Order Comment: Speci men Type: BLOOD SPECIMEN Ordering Facility: [facility] Address: [address] [place] [address] [place] [address] Performed By: #### 5 8410-2 #### [facility] CLIA [id number] [address] [place] [address] OF [facility] NURSING PROGon 01-18-2025 NURSING PROG HNO ID: [id number] Author: RIA XAVIER RN Service: Nursing Author Type: Registered Nurse Type: Nursing Progress Note Filed: 01/18/2025 19:06 Note Text: Nursing Progress Note: 01/18/25 1300 Pt was admitted to PCU. VS were taken, pt denied any pain, assessment was conducted, safety precautions taken. Jayna flight instructor nurse was called to complete admission database. 1310 Valerie RN at the bedside, to complete admit database. Ritesh CORE WINDING OPERATOR was messaged about admit orders. 1320 Ritesh CORE WINDING OPERATOR stated that Kamille CORE WINDING OPERATOR will work on the admit orders. 1400 Pt was resting, safety precautions taken. 1600 Pt was resting, safety precautions taken. Dr. Matthews was at the bedside. 1910 Report was given to oncoming nurse. Normal [facility] THERAPY NTon 01-18-2025 THERAPY NT HNO ID: [id number] Author: [employer] Service: Speech/Swallow Author Type: Speech Language Pathologist Type: Therapy (PT/OT/Speech/Resp) Filed: 01/18/2025 15:36 Note Text: Speech Therapy Clinical Swallow Evaluation SERVICE DATE: 01/18/2025 SERVICE TIME: 1505 to 1518 ROOM: [place] [address] IMPRESSION Functional oropharyngeal phases of swallowing: without [...] Skilled Need TREATMENT INTERVENTIONS Clinical Swallow Evaluation (57530) Skilled Treatment Time (minutes): 13 TRAINING AND [...] Compensatory Strategies Utilized During Assessment: Small Bite/Sip [place] Swallow Protocol: Pass Suspected Esophageal Deficits: patient with history of GERD GOALS EVAL ONLY Patient /Caregiver Goals: Eat/Drink Without Restrictions ACUTE CARE TREATMENT PLAN ST Frequency: Discontinue Therapy Services Reasons Inpatient Therapy Services Discontinued: No skilled needs Plan of Care Developed with: Patient, Nurse Practitioner, Nurse, Significant Other (Zina Simental) SIGNATURE: Brooklyn Wu [facility]-TEAM MEMBER PATIENT NAME: Bony Huang DATE: January 18, 2025 TIME: 3:30 PM Normal [facility] TROPONINon 01-18-2025 HS TROPONIN 5.9 pg/mL Normal 0.0 - 51.4 [facility] Comment on above: Performed By: #### 2 94650 ####[facility],[address] [place] [address] HS TROPONIN 6.2 pg/mL Normal 0.0 - 51.4 [facility] Comment on above: Performed By: #### 2 85076 ####[facility],[address] [place], [place] [id number] TSH SerPl-aCncon 01-18-2025 TSH Qn 0.782 m[IU]/L Normal 0.270-4.200 [facility] Comment on above: Order Comment: Speci men Type: BLOOD SPECIMEN Ordering Facility: [facility] Address: [address] [place] [address] Performed By: #### 5 8410-2 #### [facility] CLIA [id number] [address] [place] [address] [place] ABDOMEN 3+ VIEWSon ABDOMEN 3+ VIEWS Normal [facility] BMP with eGFRon 01-12-2025 AGE 75 years Normal [facility] Comment on above: Performed By: #### 2 55479 ####[facility],[address] [place] [address] 48501 Anion gap [Moles/Vol] 13 mmol/L Normal 10 - 20 [facility] Comment on above: Performed By: #### 2 84885 ####[facility],[address] [place] [address] 04930 BMP with eGFR Normal [facility] Comment on above: Result Comment: BASI C METABOLIC PANEL Performed By: #### 2 22860 ####[facility],[address] [place] [address] 17205 Calcium [Mass/Vol] 8.3 mg/dL Low 8.5 - 10.1 [facility] Comment on above: Result Comment: VERI FIED BY REPEAT ANALYSIS Performed By: #### 2 69495 ####[facility],[address] [place] [address] 37675 Chloride [Moles/Vol] 102 mmol/L Normal 98 - 107 [facility] Comment on above: Performed By: #### 2 25908 ####[facility],[address] [place] [address] 05585 CO2 [Moles/Vol] 26.4 mmol/L Normal 21.0 - 32.0 [facility] Comment on above: Performed By: #### 2 16970 ####[facility],[address] [place] [address] 06194 Creatinine [Mass/Vol] 1.61 mg/dL High 0.55 - 1.02 [facility] Comment on above: Performed By: #### 2 71665 ####[facility],[address] [place] [address] 22835 eGFR 31 ML/MINUTE Low 60 - 999 [facility] Comment on above: Performed By: #### 2 88214 ####[facility],[address] [place] [address] 76501 eGFR(AA) 38 ML/MINUTE Low 60 - 999 [facility] Comment on above: Result Comment: ACCO RDING TO THE NATIONAL KIDNEY DISEASE EDUCATION PROGRAM(NKDE), A NORMAL eGFRIS A VALUE GREATER THAN OR EQUAL TO 60 ML/MIN/1.73 SQ METERS.CHRONIC KIDNEY DISEASE: <60mL/MIN/1.73 SQ METERSKIDNEY FAILURE: <15mL/MIN/1.73 SQ METERSTHIS TEST SHOULD ONLY BE USED FOR PATIENTS 18 YEARS OF AGE AND OLDER. Performed By: #### 2 57254 ####[address] [address] Glucose [Mass/Vol] 111 mg/dL High 74 - 106 [facility] Comment on above: Performed By: #### 2 36156 ####[address] [address] Potassium [Moles/Vol] 3.6 mmol/L Normal 3.5 - 5.1 [facility] Comment on above: Performed By: #### 2 95777 ####[address] [address] Sodium [Moles/Vol] 138 mmol/L Normal 136 - 145 [facility] Comment on above: Performed By: #### 2 81078 ####[address] [address] Urea nitrogen [Mass/Vol] 25 mg/dL High 7 - 18 [facility] Comment on above: Performed By: #### 2 14962 ####[address] [address] CBC + DIFFon 01-12-2025 Baso # 0.03 x10EE3/UL Normal 0.00 - 0.10 [facility] Comment on above: Performed By: #### 2 27677 ####[address] [address] Basophils/100 WBC (Bld) 0.4 % Normal 0.0 - 2.0 [facility] Comment on above: Performed By: #### 2 93495 ####[place] [address],[place] [address] CBC + DIFF Normal [facility] Comment on above: Result Comment: CBC- COMPLETE BLOOD COUNT Performed By: #### 2 86752 ####[facility],[address] [place] [address] 72854 EO # 0.08 x10EE3/UL Normal 0.00 - 0.50 [facility] Comment on above: Performed By: #### 2 97857 ####[facility],[address] [place] [address] 79243 Eosinophils/100 WBC (Bld) 1.0 % Normal 0.0 - 7.0 [facility] Comment on above: Performed By: #### 2 93582 ####[facility],[address] [place], [place] [address] Erythrocyte distribution width (RBC) [Ratio] 13.7 % Normal 12.0 - 15.6 [facility] Comment on above: Performed By: #### 2 21169 ####[facility],[address] [place] [address] 37438 Hematocrit (Bld) [Volume fraction] 45.9 % Normal 34.0 - 46.0 [facility] Comment on above: Performed By: #### 2 01249 ####[facility],[address] [place] [address] 40729 Hemoglobin (Bld) [Mass/Vol] 15.7 g/dL Normal 12.0 - 16.0 [facility] Comment on above: Performed By: #### 2 70065 ####[facility],[address] [place] [address] 36191 Lymph # 0.70 x10EE3/UL Low 0.80 - 2.80 [facility] Comment on above: Performed By: #### 2 74829 ####[facility],[address] [place] [address] 17988 Lymphocytes/100 WBC (Bld) 8.1 % Low 20.0 - 45.0 [facility] Comment on above: Performed By: #### 2 55911 ####[facility],[address] [place] [address] MANUAL DIFF N/A Normal [facility] Comment on above: Performed By: #### 2 32111 ####[facility],[address] [place] [address] MCH (RBC) [Entitic mass] 29 pg Normal 27 - 33 [facility] Comment on above: Performed By: #### 2 12030 ####[facility],[address] [place] [address] MCHC 34 X10 3 Normal 32 - 36 [facility] Comment on above: Performed By: #### 2 29938 ####[facility],[address] [place] [address] MCV (RBC) [Entitic vol] 84 fL Normal 80 - 99 [facility] Comment on above: Performed By: #### 2 35131 ####[facility],[address] [place] [address] Merrick # 0.56 x10EE3/UL Normal 0.20 - 1.00 [facility] Comment on above: Performed By: #### 2 73328 ####[facility],[address] [place] [address] MONOS % 6.4 % Normal 0.0 - 10.0 [facility] Comment on above: Performed By: #### 2 97894 ####[facility],[address] [place] [address] Morphology Julian (Bld) [Interp] N/A Normal [facility] Comment on above: Performed By: #### 2 68134 ####[facility],[address] [place] [address] Neut # 7.28 x10EE3/UL High 1.50 - 7.10 [facility] Comment on above: Performed By: #### 2 96062 ####[facility],[address] [place] [address] 64136 Neutrophils/100 WBC (Bld) 84.1 % High 46.0 - 76.0 [facility] Comment on above: Performed By: #### 2 90621 ####[facility],[address] [place] [address] 25981 PLATELET 281 x10EE3/UL Normal 150 - 450 [facility] Comment on above: Performed By: #### 2 58851 ####[facility],[address] [place] [address] 76818 Platelet mean volume (Bld) [Entitic vol] 7.9 fL Normal 6.6 - 10.5 [facility] Comment on above: Result Comment: AUTO MATED DIFFERENTIAL Performed By: #### 2 29625 ####[facility],[address] [place] [address] 26704 RBC 5.46 x 10EE6/UL High 4.10 - 5.30 [facility] Comment on above: Performed By: #### 2 51344 ####[facility],[address] [place] [address] 62104 WBC 8.7 x 10EE3/UL Normal 4.5 - 10.8 [facility] Comment on above: Performed By: #### 2 71257 ####[facility],[address] [place] [address] 09764 CMP with eGFRon 01-12-2025 AGE 75 years Normal [facility] Comment on above: Performed By: #### 2 58005 ####[facility],[address] [place] [address] 65810 Albumin [Mass/Vol] 4.4 g/dL Normal 3.4 - 5.0 [facility] Comment on above: Performed By: #### 2 25422 ####[facility],[address] [place] [address] 42095 Albumin/Globulin [Mass ratio] 1.1 {ratio} Normal 0.9 - 1.6 [facility] Comment on above: Performed By: #### 2 09097 ####[facility],[address] [place] [address] 61857 ALK PHOS 116 U/L Normal 46 - 116 [facility] Comment on above: Performed By: #### 2 85509 ####[facility],[address] [place] [address] 61224 ALT [Catalytic activity/Vol] 23 U/L Normal 16 - 63 [facility] Comment on above: Performed By: #### 2 38308 ####[facility],[address] [place] [address] 27200 Anion gap [Moles/Vol] 16 mmol/L Normal 10 - 20 [facility] Comment on above: Performed By: #### 2 51761 ####[facility],[address] [place] [address] 40480 AST [Catalytic activity/Vol] 19 U/L Normal 13 - 39 [facility] Comment on above: Performed By: #### 2 51648 ####[facility],[address] [place] [address] 56158 B/C RATIO 13 ratio Normal 0 - 30 [facility] Comment on above: Performed By: #### 2 56873 ####[facility],[address] [place] [address] 29333 Bilirubin [Mass/Vol] 0.5 mg/dL Normal 0.2 - 1.0 [facility] Comment on above: Performed By: #### 2 84311 ####[facility],[address] [place] [address] 15325 Calcium [Mass/Vol] 9.8 mg/dL Normal 8.5 - 10.1 [facility] Comment on above: Performed By: #### 2 61730 ####[facility],[address] [place] [address] 48901 Chloride [Moles/Vol] 96 mmol/L Low 98 - 107 [facility] Comment on above: Performed By: #### 2 36281 ####[facility],[address] [place] [address] 08471 CMP with eGFR Normal [facility] Comment on above: Result Comment: COMP REHENSIVE METABOLIC PANEL Performed By: #### 2 75108 ####[facility],[address] [place], [place] [address] CO2 [Moles/Vol] 27.5 mmol/L Normal 21.0 - 32.0 [facility] Comment on above: Performed By: #### 2 59524 ####[facility],[address] [place] [address] Creatinine [Mass/Vol] 1.80 mg/dL High 0.55 - 1.02 [facility] Comment on above: Performed By: #### 2 83966 ####[facility],[address] [place] [address] eGFR 28 ML/MINUTE Low 60 - 999 [facility] Comment on above: Performed By: #### 2 71320 ####[facility],[address] [place] [address] eGFR(AA) 33 ML/MINUTE Low 60 - 999 [facility] Comment on above: Result Comment: ACCO RDING TO THE NATIONAL KIDNEY DISEASE EDUCATION PROGRAM(NKDE), A NORMAL eGFRIS A VALUE GREATER THAN OR EQUAL TO 60 ML/MIN/1.73 SQ METERS.CHRONIC KIDNEY DISEASE: <60mL/MIN/1.73 SQ METERSKIDNEY FAILURE: <15mL/MIN/1.73 SQ METERSTHIS TEST SHOULD ONLY BE USED FOR PATIENTS 18 YEARS OF AGE AND OLDER. Performed By: #### 2 92860 ####[facility],[address] [place], [place] [address] Globulin (S) [Mass/Vol] 4.0 g/dL High 1.5 - 3.8 [facility] Comment on above: Performed By: #### 2 86143 ####[facility],[address] [place] [address] 04047 Glucose [Mass/Vol] 119 mg/dL High 74 - 106 [facility] Comment on above: Performed By: #### 2 54314 ####[facility],[address] [place], [place] [address] Potassium [Moles/Vol] 3.3 mmol/L Low 3.5 - 5.1 [facility] Comment on above: Performed By: #### 2 40113 ####[facility],[address] [place] [address] Protein [Mass/Vol] 8.4 g/dL High 6.4 - 8.2 [facility] Comment on above: Performed By: #### 2 10269 ####[facility],[address] [place] [address] Sodium [Moles/Vol] 136 mmol/L Normal 136 - 145 [facility] Comment on above: Performed By: #### 2 25212 ####[facility],[address] [place] [address] Urea nitrogen [Mass/Vol] 23 mg/dL High 7 - 18 [facility] Comment on above: Performed By: #### 2 38424 ####[facility],[address] [place] [address] CT ABDOMEN/PELVIS Won 2024 CT ABDOMEN/PELVIS W Normal [facility] LIPASEon 01-12-2025 Lipase [Catalytic activity/Vol] 73.0 U/L Normal 15.0 - 78.0 [facility] Comment on above: Result Comment: *PLE ASE NOTE THAT RANGES FOR LIPASE HAVE CHANGED OF 04/12/23 DUE TO AN ASSAYUPDATE BY THE PARTS COORDINATOR.THE NEW ASSAY RANGE IS 6-250 U/L, WITH A REFERENCERANGE OF 16-77 U/L. Performed By: #### 2 40483 ####[facility],[address] [place], [place] [id number] TROPONINon 01-12-2025 HS TROPONIN 4.4 pg/mL Normal 0.0 - 51.4 [facility] Comment on above: Performed By: #### 2 77679 ####[facility],[address] [place] [address] 55691 CBC + DIFFon 01-01-2025 Baso # 0.02 x10EE3/UL Normal 0.00 - 0.10 [facility] Comment on above: Performed By: #### 2 97834 ####[facility],[address] [place] [address] 51396 Basophils/100 WBC (Bld) 0.2 % Normal 0.0 - 2.0 [facility] Comment on above: Performed By: #### 2 11125 ####[facility],[address] [place] [address] CBC + DIFF Normal [facility] Comment on above: Result Comment: CBC- COMPLETE BLOOD COUNT Performed By: #### 2 96290 ####[facility],[address] [place] [address] EO # 0.04 x10EE3/UL Normal 0.00 - 0.50 [facility] Comment on above: Performed By: #### 2 81396 ####[facility],[address] [place] [address] 60735 Eosinophils/100 WBC (Bld) 0.5 % Normal 0.0 - 7.0 [facility] Comment on above: Performed By: #### 2 00235 ####[facility],[address] [place] [address] 07306 Erythrocyte distribution width (RBC) [Ratio] 13.3 % Normal 12.0 - 15.6 [facility] Comment on above: Performed By: #### 2 37152 ####[facility],[address] [place] [address] 04058 Hematocrit (Bld) [Volume fraction] 45.8 % Normal 34.0 - 46.0 [facility] Comment on above: Performed By: #### 2 15446 ####[facility],[address] [place] [address] 33005 Hemoglobin (Bld) [Mass/Vol] 15.7 g/dL Normal 12.0 - 16.0 [facility] Comment on above: Performed By: #### 2 48664 ####[facility],[address] [place] [address] Lymph # 0.69 x10EE3/UL Low 0.80 - 2.80 [facility] Comment on above: Performed By: #### 2 03430 ####[facility],[address] [place], [place] [address] Lymphocytes/100 WBC (Bld) 8.1 % Low 20.0 - 45.0 [facility] Comment on above: Performed By: #### 2 61286 ####[facility],[address] [place], [place] [id number] MANUAL DIFF N/A Normal [facility] Comment on above: Performed By: #### 2 43063 ####[facility],[address] [place], [place] [address] MCH (RBC) [Entitic mass] 29 pg Normal 27 - 33 [facility] Comment on above: Performed By: #### 2 14225 ####[facility],[address] [place], [place] [id number] MCHC 34 X10 3 Normal 32 - 36 [facility] Comment on above: Performed By: #### 2 08851 ####[facility],[address] [place] [address] 79052 MCV (RBC) [Entitic vol] 85 fL Normal 80 - 99 [facility] Comment on above: Performed By: #### 2 98054 ####[facility],[address] [place] [address] 55431 Merrick # 0.47 x10EE3/UL Normal 0.20 - 1.00 [facility] Comment on above: Performed By: #### 2 95179 ####[facility],[address] [place] [address] 19587 MONOS % 5.5 % Normal 0.0 - 10.0 [facility] Comment on above: Performed By: #### 2 13809 ####[facility],[address] [place] [address] 94651 Morphology Julian (Bld) [Interp] N/A Normal [facility] Comment on above: Performed By: #### 2 40343 ####[facility],[address] [place] [address] 53106 Neut # 7.29 x10EE3/UL High 1.50 - 7.10 [facility] Comment on above: Performed By: #### 2 39788 ####[facility],[address] [place] [address] 38332 Neutrophils/100 WBC (Bld) 85.7 % High 46.0 - 76.0 [facility] Comment on above: Performed By: #### 2 88877 ####[facility],[address] [place] [address] 05590 PLATELET 273 x10EE3/UL Normal 150 - 450 [facility] Comment on above: Performed By: #### 2 16825 ####[facility],[address] [place] [address] 24041 Platelet mean volume (Bld) [Entitic vol] 7.6 fL Normal 6.6 - 10.5 [facility] Comment on above: Result Comment: AUTO MATED DIFFERENTIAL Performed By: #### 2 76743 ####[facility],[address] [place] [address] 09776 RBC 5.37 x 10EE6/UL High 4.10 - 5.30 [facility] Comment on above: Performed By: #### 2 99400 ####[facility],[address] [place] [address] 72724 WBC 8.5 x 10EE3/UL Normal 4.5 - 10.8 [facility] Comment on above: Performed By: #### 2 33363 ####[facility],[address] [place] [address] 59576 CMP with eGFRon 01-01-2025 AGE 74 years Normal [facility] Comment on above: Performed By: #### 2 96763 ####[facility],[address] [place] [address] 61870 Albumin [Mass/Vol] 4.2 g/dL Normal 3.4 - 5.0 [facility] Comment on above: Performed By: #### 2 04837 ####[facility],[address] [place] [address] 48449 Albumin/Globulin [Mass ratio] 1.1 {ratio} Normal 0.9 - 1.6 [facility] Comment on above: Performed By: #### 2 52494 ####[facility],[address] [place] [address] 86590 ALK PHOS 108 U/L Normal 46 - 116 [facility] Comment on above: Performed By: #### 2 19550 ####[facility],[address] [place] [address] 49345 ALT [Catalytic activity/Vol] 20 U/L Normal 16 - 63 [facility] Comment on above: Performed By: #### 2 29081 ####[facility],[address] [place] [address] 84146 Anion gap [Moles/Vol] 16 mmol/L Normal 10 - 20 [facility] Comment on above: Performed By: #### 2 96282 ####[facility],[address] [place] [address] 51755 AST [Catalytic activity/Vol] 17 U/L Normal 13 - 39 [facility] Comment on above: Performed By: #### 2 57773 ####[facility],[address] [place] [address] 85599 B/C RATIO 17 ratio Normal 0 - 30 [facility] Comment on above: Performed By: #### 2 72284 ####[facility],[address] [place] [address] 48115 Bilirubin [Mass/Vol] 0.5 mg/dL Normal 0.2 - 1.0 [facility] Comment on above: Performed By: #### 2 03562 ####[facility],[address] [place] [address] 52285 Calcium [Mass/Vol] 10.4 mg/dL High 8.5 - 10.1 [facility] Comment on above: Performed By: #### 2 60263 ####[facility],[address] [place], [place] [address] Chloride [Moles/Vol] 96 mmol/L Low 98 - 107 [facility] Comment on above: Performed By: #### 2 66848 ####[facility],[address] [place] [address] CMP with eGFR Normal [facility] Comment on above: Result Comment: COMP REHENSIVE METABOLIC PANEL Performed By: #### 2 80857 ####[facility],[address] [place] [address] 65397 CO2 [Moles/Vol] 35.3 mmol/L High 21.0 - 32.0 [facility] Comment on above: Performed By: #### 2 71975 ####[facility],[address] [place] [address] 48704 Creatinine [Mass/Vol] 1.22 mg/dL High 0.55 - 1.02 [facility] Comment on above: Performed By: #### 2 20982 ####[facility],[address] [place] [address] 65733 eGFR 43 ML/MINUTE Low 60 - 999 [facility] Comment on above: Performed By: #### 2 73657 ####[facility],[address] [place] [address] 47976 eGFR(AA) 52 ML/MINUTE Low 60 - 999 [facility] Comment on above: Result Comment: ACCO RDING TO THE NATIONAL KIDNEY DISEASE EDUCATION PROGRAM(NKDE), A NORMAL eGFRIS A VALUE GREATER THAN OR EQUAL TO 60 ML/MIN/1.73 SQ METERS.CHRONIC KIDNEY DISEASE: <60mL/MIN/1.73 SQ METERSKIDNEY FAILURE: <15mL/MIN/1.73 SQ METERSTHIS TEST SHOULD ONLY BE USED FOR PATIENTS 18 YEARS OF AGE AND OLDER. Performed By: #### 2 05484 ####[facility],[address] [place] [address] 23272 Globulin (S) [Mass/Vol] 4.0 g/dL High 1.5 - 3.8 [facility] Comment on above: Performed By: #### 2 71766 ####[facility],[address] [place] [address] 56895 Glucose [Mass/Vol] 131 mg/dL High 74 - 106 [facility] Comment on above: Performed By: #### 2 03836 ####[facility],[address] [place] [address] 06087 Potassium [Moles/Vol] 2.9 mmol/L Critically low 3.5 - 5.1 [facility] Comment on above: Result Comment: { CA LLED TO CRSION RN BY AA [id number]{ READ BACK BY CRSION RN RA [id number] Performed By: #### 2 30845 ####[facility],[address] [place] [address] 00772 Protein [Mass/Vol] 8.2 g/dL Normal 6.4 - 8.2 [facility] Comment on above: Performed By: #### 2 89307 ####[address] [address] Sodium [Moles/Vol] 144 mmol/L Normal 136 - 145 [facility] Comment on above: Performed By: #### 2 59218 ####[facility],[address] [place] [address] 48003 Urea nitrogen [Mass/Vol] 21 mg/dL High 7 - 18 [facility] Comment on above: Performed By: #### 2 83025 ####[facility],[address] [place], [place] [id number] ED MED ADMINISTRATION DETAIL on 01-01-2025 ED MED ADMINISTRATION DETAIL Normal [facility] ED NURSES CLINICAL NOTEon ED NURSES CLINICAL NOTE Normal [facility] ED ORDER SHEET (CPOE ONLY)on 01-01-2025 ED ORDER SHEET (CPOE ONLY) Normal [facility] ED PHYSICIAN CLINICAL REPORT on 01-01-2025 ED PHYSICIAN CLINICAL REPORT Normal [facility] ED SUPER BILLon 01-01-2025 ED SUPER BILL Normal [facility] ED VISIT SUMMARYon ED VISIT SUMMARY Normal [facility] ED VITALS FLOW SHEETon 01-01 ED VITALS FLOW SHEET Normal [facility] CNOVon 12-29-2024 CNOV Office Visit (GASTSP) LARISSAYAMILEXBONY ([id number]) 1950 F Date Time Provider Department 12/29/24 [...] no edema RESPIRATORY: No dyspnea : neg JUKEBOX CHECKER: neg The remainder of the review of [...] Ordered u (more content not included)... Normal [facility] ED MED ADMINISTRATION DETAIL on 12-24-2024 ED MED ADMINISTRATION DETAIL Normal [facility] ED NURSES CLINICAL NOTEon ED NURSES CLINICAL NOTE Normal [facility] ED ORDER SHEET (CPOE ONLY)on 12-24-2024 ED ORDER SHEET (CPOE ONLY) Normal [facility] ED PHYSICIAN CLINICAL REPORT on 12-24-2024 ED PHYSICIAN CLINICAL REPORT Normal [facility] ED SUPER BILLon 12-24-2024 ED SUPER BILL Normal [facility] ED VISIT SUMMARYon ED VISIT SUMMARY Normal [facility] ED VITALS FLOW SHEETon 12-24 ED VITALS FLOW SHEET Normal [facility] .GFRon 12-23-2024 Estimated Glomerular Filtration Rate 34 ml/min/1.73sqm Normal [facility] Comment on above: Result Comment: Stages [...] Performed By: #### C MP, GFR #### [address] [address] CMPon 12-23-2024 Albumin Level 4.8 G/dL Normal 3.2-4.8 [facility] Comment on above: Performed By: #### C MP, GFR #### [address] [address] Albumin/Globulin [Mass ratio] 1.2 {ratio} Normal 0.9-1.6 [facility] Comment on above: Performed By: #### C MP, GFR #### [address] [address] ALP [Catalytic activity/Vol] 105 U/L Normal 38-126 [facility] Comment on above: Performed By: #### C MP, GFR #### [address] [address] ALT [Catalytic activity/Vol] 14 U/L Normal 10-49 [facility] Comment on above: Performed By: #### C MP, GFR #### [place] [id number] AST [Catalytic activity/Vol] 21 U/L Normal 8-34 [facility] Comment on above: Performed By: #### C MP, GFR #### [place] [id number] Bili Total 0.40 mg/dL Normal 0.20-1.20 [facility] Comment on above: Result Comment: Use of this assay is not recommended for patients undergoing treatment with eltrombopag due to the potential for falsely elevated results. Performed By: #### C MP, GFR #### [place] [address] BUN/Creatinine Ratio 15.5 ratio Normal 10.0-22.0 [facility] Comment on above: Performed By: #### C MP, GFR #### [place] [address] Calcium [Mass/Vol] 11.2 mg/dL High 8.7-10.4 [facility] Comment on above: Performed By: #### C MP, GFR #### [place] [address] Chloride [Moles/Vol] 92 mmol/L Low 98-110 [facility] Comment on above: Performed By: #### C MP, GFR #### [place] [id number] CO2 [Moles/Vol] 30 mmol/L Normal 22-32 [facility] Comment on above: Performed By: #### C MP, GFR #### [place] [id number] Creatinine [Mass/Vol] 1.61 mg/dL High 0.50-1.20 [facility] Comment on above: Result Comment: Test ing performed on SonarMed analyzer using enzymatic creatinine methodology. Performed By: #### C MP, GFR #### [place] [id number] Electrolyte Balance 18.0 mEq/L High 4.0-15.0 [facility] Comment on above: Performed By: #### C MP, GFR #### [address] [address] Globulin 4.0 G/dL Normal 2.5-4.2 [facility] Comment on above: Performed By: #### C MP, GFR #### [address] [address] Glucose [Mass/Vol] 140 mg/dL High 82-115 [facility] Comment on above: Performed By: #### C MP, GFR #### [address] [address] Potassium [Moles/Vol] 3.6 mmol/L Normal 3.5-5.0 [facility] Comment on above: Performed By: #### C MP, GFR #### [address] [address] Sodium [Moles/Vol] 140 mmol/L Normal 136-145 [facility] Comment on above: Performed By: #### C MP, GFR #### [address] [address] Total Protein 8.8 G/dL High 5.7-8.2 [facility] Comment on above: Performed By: #### C MP, GFR #### [address] [address] Urea nitrogen [Mass/Vol] 25.0 mg/dL High 8.0-22.0 [facility] Comment on above: Performed By: #### C MP, GFR #### [address] [address] CMP with eGFRon 12-23-2024 CMP with eGFR Normal [facility] Comment on above: Result Comment: COMP REHENSIVE METABOLIC PANEL SEE SEPERATE REPORT Performed By: #### 2 44067 ####[facility],[address] [place] [address] 01669 CBC + DIFFon 12-22-2024 Baso # 0.03 x10EE3/UL Normal 0.00 - 0.10 [facility] Comment on above: Performed By: #### 2 35418 ####[facility],[address] [place] [address] Basophils/100 WBC (Bld) 0.4 % Normal 0.0 - 2.0 [facility] Comment on above: Performed By: #### 2 44689 ####[facility],[address] [place] [address] CBC + DIFF Normal [facility] Comment on above: Result Comment: CBC- COMPLETE BLOOD COUNT Performed By: #### 2 05713 ####[place] [address] EO # 0.16 x10EE3/UL Normal 0.00 - 0.50 [facility] Comment on above: Performed By: #### 2 65369 ####[facility],[address] [place] [address] Eosinophils/100 WBC (Bld) 1.8 % Normal 0.0 - 7.0 [facility] Comment on above: Performed By: #### 2 13032 ####[place] [address] Erythrocyte distribution width (RBC) [Ratio] 14.2 % Normal 12.0 - 15.6 [facility] Comment on above: Performed By: #### 2 67277 ####[facility],[address] [place] [address] Hematocrit (Bld) [Volume fraction] 48.9 % High 34.0 - 46.0 [facility] Comment on above: Performed By: #### 2 59343 ####[facility],[address] [place] [address] Hemoglobin (Bld) [Mass/Vol] 16.7 g/dL High 12.0 - 16.0 [facility] Comment on above: Performed By: #### 2 31860 ####[facility],[address] [place] [address] Lymph # 1.94 x10EE3/UL Normal 0.80 - 2.80 [facility] Comment on above: Performed By: #### 2 81117 ####[facility],[address] [place] [address] Lymphocytes/100 WBC (Bld) 22.8 % Normal 20.0 - 45.0 [facility] Comment on above: Performed By: #### 2 33682 ####[facility],[address] [place] [address] MANUAL DIFF N/A Normal [facility] Comment on above: Performed By: #### 2 38305 ####[facility],[address] [place] [address] MCH (RBC) [Entitic mass] 29 pg Normal 27 - 33 [facility] Comment on above: Performed By: #### 2 64485 ####[facility],[address] [place] [address] MCHC 34 X10 3 Normal 32 - 36 [facility] Comment on above: Performed By: #### 2 31915 ####[facility],[address] [place] [address] MCV (RBC) [Entitic vol] 84 fL Normal 80 - 99 [facility] Comment on above: Performed By: #### 2 57272 ####[facility],[address] [place] [address] Merrick # 0.82 x10EE3/UL Normal 0.20 - 1.00 [facility] Comment on above: Performed By: #### 2 98451 ####[facility],[address] [place] [address] MONOS % 9.7 % Normal 0.0 - 10.0 [facility] Comment on above: Performed By: #### 2 54520 ####[facility],[address],[place] [address] Morphology Julian (Bld) [Interp] N/A Normal [facility] Comment on above: Performed By: #### 2 28388 ####[facility],[address] [place] [address] Neut # 5.56 x10EE3/UL Normal 1.50 - 7.10 [facility] Comment on above: Performed By: #### 2 78977 ####[address] [address] Neutrophils/100 WBC (Bld) 65.3 % Normal 46.0 - 76.0 [facility] Comment on above: Performed By: #### 2 67030 ####[address] [address] PLATELET 351 x10EE3/UL Normal 150 - 450 [facility] Comment on above: Performed By: #### 2 19299 ####[address] [address] Platelet mean volume (Bld) [Entitic vol] 7.9 fL Normal 6.6 - 10.5 [facility] Comment on above: Result Comment: AUTO MATED DIFFERENTIAL Performed By: #### 2 52310 ####[address] [address] RBC 5.79 x 10EE6/UL High 4.10 - 5.30 [facility] Comment on above: Performed By: #### 2 60689 ####[facility],[address] [place] [address] WBC 8.5 x 10EE3/UL Normal 4.5 - 10.8 [facility] Comment on above: Performed By: #### 2 88873 ####[facility],[address] [place] [address] 00951 /Chandrika 12-21-2024 /BMSMELITA [facility] [address] [facility]. [address] [place] [address] OFFICE VISIT Date of Service: 12/21/24 MR#: [id number] Acct: [id number] Name: BONY HUANG Rep #: [id number] 2 : 1950 Provider: Dr. 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 She has repeated episodes at times getting fairly frequent of nausea, vomiting followed by diarrhea and dehydration presumed related to gastroparesis. Remote history of carcinoid duodenum, status post resection remotely. Currently we were able to get her an appointment with gastroenterology specialist in the motility disorder center at [facility]. Previously had been following with [facility] gastroenterology and no clear benefit was gained [...] clear to me. Also on pantoprazole per [facility]. She takes number of supplements as per [...] unremarkable nonlateraliz (more content not included)... Normal [facility] T3, FREE [CCL]on 12-18-2024 Free T3 [Mass/Vol] 2.3 pg/mL Normal 2.3-4.1 [facility] Comment on above: Result Comment: [facility] [address] [place], [place] [address]Dlhoxx Flor GASPAR M.D.[id number] Performed By: #### 2 22758 ####[facility],[address] [place] [address] CBC + DIFFon 12-17-2024 Baso # 0.03 x10EE3/UL Normal 0.00 - 0.10 [facility] Comment on above: Performed By: #### 2 54903 ####[facility],[address] [place] [address] Basophils/100 WBC (Bld) 0.6 % Normal 0.0 - 2.0 [facility] Comment on above: Performed By: #### 2 57280 ####[facility],[address] [place] [address] CBC + DIFF Normal [facility] Comment on above: Result Comment: CBC- COMPLETE BLOOD COUNT Performed By: #### 2 34399 ####[facility],[address] [place] [address] EO # 0.16 x10EE3/UL Normal 0.00 - 0.50 [facility] Comment on above: Performed By: #### 2 23178 ####[facility],[address] [place], [place] [address] Eosinophils/100 WBC (Bld) 3.3 % Normal 0.0 - 7.0 [facility] Comment on above: Performed By: #### 2 42554 ####[facility],[address] [place] [address] Erythrocyte distribution width (RBC) [Ratio] 13.5 % Normal 12.0 - 15.6 [facility] Comment on above: Performed By: #### 2 31105 ####[facility],[address] [place] [address] Hematocrit (Bld) [Volume fraction] 38.9 % Normal 34.0 - 46.0 [facility] Comment on above: Performed By: #### 2 22371 ####[facility],[address] [place] [address] Hemoglobin (Bld) [Mass/Vol] 13.4 g/dL Normal 12.0 - 16.0 [facility] Comment on above: Performed By: #### 2 94619 ####[facility],[address] [place] [address] Lymph # 1.40 x10EE3/UL Normal 0.80 - 2.80 [facility] Comment on above: Performed By: #### 2 86617 ####[facility],[address] [place] [address] Lymphocytes/100 WBC (Bld) 27.9 % Normal 20.0 - 45.0 [facility] Comment on above: Performed By: #### 2 17703 ####[facility],[address] [place] [address] MANUAL DIFF N/A Normal [facility] Comment on above: Performed By: #### 2 01908 ####[facility],[address] [place] [address] MCH (RBC) [Entitic mass] 29 pg Normal 27 - 33 [facility] Comment on above: Performed By: #### 2 97059 ####[facility],[address] [place] [address] MCHC 34 X10 3 Normal 32 - 36 [facility] Comment on above: Performed By: #### 2 25596 ####[facility],[address] [place] [address] MCV (RBC) [Entitic vol] 85 fL Normal 80 - 99 [facility] Comment on above: Performed By: #### 2 37966 ####[facility],[address] [place] [address] Merrick # 0.44 x10EE3/UL Normal 0.20 - 1.00 [facility] Comment on above: Performed By: #### 2 42361 ####[facility],[address] [place] [address] MONOS % 8.8 % Normal 0.0 - 10.0 [facility] Comment on above: Performed By: #### 2 28501 ####[facility],[address] [place] [address] Morphology Julian (Bld) [Interp] N/A Normal [facility] Comment on above: Performed By: #### 2 96962 ####[facility],[address] [place] [address]842 Neut # 2.98 x10EE3/UL Normal 1.50 - 7.10 [facility] Comment on above: Performed By: #### 2 49983 ####[facility],[address] [place] [address] Neutrophils/100 WBC (Bld) 59.4 % Normal 46.0 - 76.0 [facility] Comment on above: Performed By: #### 2 34209 ####[facility],[address] [place] [address] PLATELET 275 x10EE3/UL Normal 150 - 450 [facility] Comment on above: Performed By: #### 2 54922 ####[facility],[address] [place] [address] Platelet mean volume (Bld) [Entitic vol] 8.2 fL Normal 6.6 - 10.5 [facility] Comment on above: Result Comment: AUTO MATED DIFFERENTIAL Performed By: #### 2 01312 ####[facility],[address] [place] [address] 24715 RBC 4.58 x 10EE6/UL Normal 4.10 - 5.30 [facility] Comment on above: Performed By: #### 2 20160 ####[facility],[address] [place] [address] WBC 5.0 x 10EE3/UL Normal 4.5 - 10.8 [facility] Comment on above: Performed By: #### 2 62670 ####[facility],[address] [place] [address] CMP with eGFRon 12-17-2024 AGE 74 years Normal [facility] Comment on above: Performed By: #### 2 31402 ####[facility],[address] [place] [address] Albumin [Mass/Vol] 3.6 g/dL Normal 3.4 - 5.0 [facility] Comment on above: Performed By: #### 2 71446 ####[facility],[address] [place] [address] Albumin/Globulin [Mass ratio] 1.0 {ratio} Normal 0.9 - 1.6 [facility] Comment on above: Performed By: #### 2 11776 ####[facility],[address] [place], [place] [address] ALK PHOS 85 U/L Normal 46 - 116 [facility] Comment on above: Performed By: #### 2 68187 ####[facility],[address] [place] [address] ALT [Catalytic activity/Vol] 23 U/L Normal 16 - 63 [facility] Comment on above: Performed By: #### 2 39834 ####[facility],[address] [place] [address] Anion gap [Moles/Vol] 10 mmol/L Normal 10 - 20 [facility] Comment on above: Performed By: #### 2 52626 ####[facility],[address] [place] [address] AST [Catalytic activity/Vol] 16 U/L Normal 13 - 39 [facility] Comment on above: Performed By: #### 2 58555 ####[facility],[address] [place] [address] B/C RATIO 15 ratio Normal 0 - 30 [facility] Comment on above: Performed By: #### 2 31295 ####[facility],[address] [place], [place] [address] Bilirubin [Mass/Vol] 0.3 mg/dL Normal 0.2 - 1.0 [facility] Comment on above: Performed By: #### 2 12484 ####[facility],[address] [place] [address] Calcium [Mass/Vol] 9.0 mg/dL Normal 8.5 - 10.1 [facility] Comment on above: Performed By: #### 2 73652 ####[facility],[address] [place] [address] Chloride [Moles/Vol] 103 mmol/L Normal 98 - 107 [facility] Comment on above: Performed By: #### 2 63337 ####[facility],[address] [place], [place] [address] CMP with eGFR Normal [facility] Comment on above: Result Comment: COMP REHENSIVE METABOLIC PANEL Performed By: #### 2 15080 ####[facility],[address] [place] [address] CO2 [Moles/Vol] 30.2 mmol/L Normal 21.0 - 32.0 [facility] Comment on above: Performed By: #### 2 27956 ####[facility],[address] [place] [address] Creatinine [Mass/Vol] 0.93 mg/dL Normal 0.55 - 1.02 [facility] Comment on above: Performed By: #### 2 75798 ####[facility],[address] [place] [address] 88795 eGFR 59 ML/MINUTE Low 60 - 999 [facility] Comment on above: Performed By: #### 2 84658 ####[address] [address] GFR/1.73 sq M.predicted among non-blacks MDRD (S/P/Bld) [Vol rate/Area] mL/min/{1.73_m2} Normal 60 - 999 [facility] Comment on above: Result Comment: ACCO RDING TO THE NATIONAL KIDNEY DISEASE EDUCATION PROGRAM(NKDE), A NORMAL eGFRIS A VALUE GREATER THAN OR EQUAL TO 60 ML/MIN/1.73 SQ METERS.CHRONIC KIDNEY DISEASE: <60mL/MIN/1.73 SQ METERSKIDNEY FAILURE: <15mL/MIN/1.73 SQ METERSTHIS TEST SHOULD ONLY BE USED FOR PATIENTS 18 YEARS OF AGE AND OLDER. Performed By: #### 2 27433 ####[facility],[address] [place] [address] Globulin (S) [Mass/Vol] 3.5 g/dL Normal 1.5 - 3.8 [facility] Comment on above: Performed By: #### 2 68141 ####[address] [address] Glucose [Mass/Vol] 76 mg/dL Normal 74 - 106 [facility] Comment on above: Performed By: #### 2 12133 ####[facility],[address] [place] [address] 8[address]80 Potassium [Moles/Vol] 4.4 mmol/L Normal 3.5 - 5.1 [facility] Comment on above: Performed By: #### 2 25332 ####[facility],[address] [place] [address] 66248 Protein [Mass/Vol] 7.1 g/dL Normal 6.4 - 8.2 [facility] Comment on above: Performed By: #### 2 40799 ####[facility],[address] [place] [address] 47041 Sodium [Moles/Vol] 139 mmol/L Normal 136 - 145 [facility] Comment on above: Performed By: #### 2 71480 ####[facility],[address] [place] [address] 41519 Urea nitrogen [Mass/Vol] 14 mg/dL Normal 7 - 18 [facility] Comment on above: Performed By: #### 2 71027 ####[facility],[address] [place] [address]73 LIPID PROFILEon 12-17-2024 Cholesterol [Mass/Vol] 261 mg/dL High 0 - 240 [facility] Comment on above: Performed By: #### 2 14373 ####[facility],[address] [place] [address]257 Cholesterol in HDL [Mass/Vol] 56 mg/dL Normal 40 - 60 [facility] Comment on above: Performed By: #### 2 18715 ####[facility],[address] [place] [address] 95557 Cholesterol in LDL [Mass/Vol] 171 mg/dL High 0 - 129 [facility] Comment on above: Performed By: #### 2 94499 ####[facility],[address] [place] [address] 24845 Cholesterol.total/Dottie sterol in HDL [Mass ratio] 4.7 {ratio} Normal 0.0 - 5.0 [facility] Comment on above: Performed By: #### 2 17047 ####[facility],[address] [place] [address] 67030 Lipid 1996 panel Normal [facility] Comment on above: Result Comment: LIPI D PROFILE Performed By: #### 2 36826 ####[facility],[address] [place] [address]20 Triglyceride [Mass/Vol] 168 mg/dL High 0 - 150 [facility] Comment on above: Performed By: #### 2 65093 ####[facility],[address] [place] [address]907 [facility]19 25 Free T3 [Mass/Vol] 2.3 pg/mL Normal 2.3-4.1 [facility] Comment on above: Order Comment: Speci men Type: BLOOD SPECIMEN Ordering Facility: [facility] Address: [address] [place] [address] Performed By: #### 3 051-0 #### [facility] CLIA [id number] [address] [place] [address] [place] T4-FREE (FREE THYROXINE)on 0 12-17-2024 Free T4 [Mass/Vol] 1.25 ng/dL Normal 0.76 - 1.46 [facility] Comment on above: Result Comment: P otential of falsely elevated results when biotin concentrations are > 10ng/mL. Performed By: #### 2 47665 ####[facility],[address] [place] [address] 25305 TSHon 12-17-2024 TSH Qn 1.70 m[IU]/L Normal 0.35 - 3.74 [facility] Comment on above: Performed By: #### 2 86174 ####[facility],[address] [place], [place] [id number] ED MED ADMINISTRATION DETAIL on 12-14-2024 ED MED ADMINISTRATION DETAIL Normal [facility] ED NURSES CLINICAL NOTEon ED NURSES CLINICAL NOTE Normal [facility] ED ORDER SHEET (CPOE ONLY)on 12-14-2024 ED ORDER SHEET (CPOE ONLY) Normal [facility] ED PHYSICIAN CLINICAL REPORT on 12-14-2024 ED PHYSICIAN CLINICAL REPORT Normal [facility] ED SUPER BILLon 12-14-2024 ED SUPER BILL Normal [facility] ED VISIT SUMMARYon ED VISIT SUMMARY Normal [facility] ED VITALS FLOW SHEETon 12-14 ED VITALS FLOW SHEET Normal [facility] CBC + DIFFon 12-13-2024 Baso # 0.03 x10EE3/UL Normal 0.00 - 0.10 [facility] Comment on above: Performed By: #### 2 78251 ####[facility],[address] [place] [address] Basophils/100 WBC (Bld) 0.2 % Normal 0.0 - 2.0 [facility] Comment on above: Performed By: #### 2 41810 ####[facility],[address] [place] [address] 31583 CBC + DIFF Normal [facility] Comment on above: Result Comment: CBC- COMPLETE BLOOD COUNT Performed By: #### 2 60004 ####[facility],[address] [place] [address] 14607 EO # 0.06 x10EE3/UL Normal 0.00 - 0.50 [facility] Comment on above: Performed By: #### 2 35010 ####[facility],[address] [place] [address] 64500 Eosinophils/100 WBC (Bld) 0.5 % Normal 0.0 - 7.0 [facility] Comment on above: Performed By: #### 2 22536 ####[facility],[address] [place] [address] 05611 Erythrocyte distribution width (RBC) [Ratio] 13.8 % Normal 12.0 - 15.6 [facility] Comment on above: Performed By: #### 2 01366 ####[facility],[address] [place], [place] [id number] Hematocrit (Bld) [Volume fraction] 49.7 % High 34.0 - 46.0 [facility] Comment on above: Performed By: #### 2 85791 ####[facility],[address] [place] [address] Hemoglobin (Bld) [Mass/Vol] 16.8 g/dL High 12.0 - 16.0 [facility] Comment on above: Performed By: #### 2 82409 ####[facility],[address] [place] [address] Lymph # 1.12 x10EE3/UL Normal 0.80 - 2.80 [facility] Comment on above: Performed By: #### 2 58118 ####[facility],[address] [place], [place] [id number] Lymphocytes/100 WBC (Bld) 9.7 % Low 20.0 - 45.0 [facility] Comment on above: Performed By: #### 2 89040 ####[facility],[address] [place] [address] 55432 MANUAL DIFF N/A Normal [facility] Comment on above: Performed By: #### 2 08768 ####[facility],[address] [place] [address] 58520 MCH (RBC) [Entitic mass] 29 pg Normal 27 - 33 [facility] Comment on above: Performed By: #### 2 24737 ####[facility],[address] [place] [address] 85461 MCHC 34 X10 3 Normal 32 - 36 [facility] Comment on above: Performed By: #### 2 68254 ####[facility],[address] [place] [address] 64048 MCV (RBC) [Entitic vol] 86 fL Normal 80 - 99 [facility] Comment on above: Performed By: #### 2 98721 ####[facility],[address] [place] [address] 34075 Merrick # 0.83 x10EE3/UL Normal 0.20 - 1.00 [facility] Comment on above: Performed By: #### 2 00226 ####[facility],[address] [place] [address] 18895 MONOS % 7.2 % Normal 0.0 - 10.0 [facility] Comment on above: Performed By: #### 2 83031 ####[facility],[address] [place] [address] 86018 Morphology Julian (Bld) [Interp] N/A Normal [facility] Comment on above: Performed By: #### 2 12222 ####[facility],[address] [place] [address] 90332 Neut # 9.54 x10EE3/UL High 1.50 - 7.10 [facility] Comment on above: Performed By: #### 2 26138 ####[facility],[address] [place] [address] 17944 Neutrophils/100 WBC (Bld) 82.4 % High 46.0 - 76.0 [facility] Comment on above: Performed By: #### 2 64789 ####[facility],[address] [place] [address] 10619 PLATELET 350 x10EE3/UL Normal 150 - 450 [facility] Comment on above: Performed By: #### 2 58556 ####[facility],[address] [place] [address] 36613 Platelet mean volume (Bld) [Entitic vol] 7.9 fL Normal 6.6 - 10.5 [facility] Comment on above: Result Comment: AUTO MATED DIFFERENTIAL Performed By: #### 2 06750 ####[facility],[address] [place] [address] 76175 RBC 5.75 x 10EE6/UL High 4.10 - 5.30 [facility] Comment on above: Performed By: #### 2 90081 ####[facility],[address] [place] [address] 80477 WBC 11.6 x 10EE3/UL High 4.5 - 10.8 [facility] Comment on above: Performed By: #### 2 71910 ####[facility],[address] [place] [address] 87018 CMP with eGFRon 12-13-2024 AGE 74 years Normal [facility] Comment on above: Performed By: #### 2 00997 ####[facility],[address] [place] [address] 20749 Albumin [Mass/Vol] 4.4 g/dL Normal 3.4 - 5.0 [facility] Comment on above: Performed By: #### 2 78615 ####[facility],[address] [place] [address] 77424 Albumin/Globulin [Mass ratio] 1.0 {ratio} Normal 0.9 - 1.6 [facility] Comment on above: Performed By: #### 2 04821 ####[facility],[address] [place] [address] 54872 ALK PHOS 101 U/L Normal 46 - 116 [facility] Comment on above: Performed By: #### 2 85029 ####[facility],[address] [place] [address] 78353 ALT [Catalytic activity/Vol] 22 U/L Normal 16 - 63 [facility] Comment on above: Performed By: #### 2 40253 ####[facility],[address] [place] [address] 35184 Anion gap [Moles/Vol] 21 mmol/L High 10 - 20 [facility] Comment on above: Performed By: #### 2 55168 ####[facility],[address] [place] [address] 99606 AST [Catalytic activity/Vol] 28 U/L Normal 13 - 39 [facility] Comment on above: Performed By: #### 2 51748 ####[facility],[address] [place] [address] 14749 B/C RATIO 10 ratio Normal 0 - 30 [facility] Comment on above: Performed By: #### 2 16938 ####[facility],[address] [place] [address] 01608 Bilirubin [Mass/Vol] 0.5 mg/dL Normal 0.2 - 1.0 [facility] Comment on above: Performed By: #### 2 72899 ####[facility],[address] [place] [address] 05092 Calcium [Mass/Vol] 9.8 mg/dL Normal 8.5 - 10.1 [facility] Comment on above: Performed By: #### 2 13958 ####[facility],[address] [place] [address] 55130 Chloride [Moles/Vol] 95 mmol/L Low 98 - 107 [facility] Comment on above: Performed By: #### 2 34308 ####[facility],[address] [place] [address] 64816 CMP with eGFR Normal [facility] Comment on above: Result Comment: COMP REHENSIVE METABOLIC PANEL Performed By: #### 2 99381 ####[facility],[address] [place] [address] 64957 CO2 [Moles/Vol] 23.5 mmol/L Normal 21.0 - 32.0 [facility] Comment on above: Performed By: #### 2 96417 ####[facility],[address] [place] [address] 49916 Creatinine [Mass/Vol] 2.32 mg/dL High 0.55 - 1.02 [facility] Comment on above: Performed By: #### 2 37058 ####[facility],[address] [place] [address] 50578 eGFR 21 ML/MINUTE Low 60 - 999 [facility] Comment on above: Performed By: #### 2 80581 ####[facility],[address] [place] [address] 26181 eGFR(AA) 25 ML/MINUTE Low 60 - 999 [facility] Comment on above: Result Comment: ACCO RDING TO THE NATIONAL KIDNEY DISEASE EDUCATION PROGRAM(NKDE), A NORMAL eGFRIS A VALUE GREATER THAN OR EQUAL TO 60 ML/MIN/1.73 SQ METERS.CHRONIC KIDNEY DISEASE: <60mL/MIN/1.73 SQ METERSKIDNEY FAILURE: <15mL/MIN/1.73 SQ METERSTHIS TEST SHOULD ONLY BE USED FOR PATIENTS 18 YEARS OF AGE AND OLDER. Performed By: #### 2 43490 ####[facility],[address] [place] [address] 02113 Globulin (S) [Mass/Vol] 4.3 g/dL High 1.5 - 3.8 [facility] Comment on above: Performed By: #### 2 93185 ####[facility],[address] [place] [address] 71282 Glucose [Mass/Vol] 139 mg/dL High 74 - 106 [facility] Comment on above: Performed By: #### 2 02384 ####[facility],[address] [place] [address] 96578 Potassium [Moles/Vol] 4.0 mmol/L Normal 3.5 - 5.1 [facility] Comment on above: Performed By: #### 2 88955 ####[facility],[address] [place] [address] 74614 Protein [Mass/Vol] 8.7 g/dL High 6.4 - 8.2 [facility] Comment on above: Performed By: #### 2 01688 ####[facility],[address] [place] [address] Sodium [Moles/Vol] 135 mmol/L Low 136 - 145 [facility] Comment on above: Performed By: #### 2 46840 ####[facility],[address] [place] [address] Urea nitrogen [Mass/Vol] 24 mg/dL High 7 - 18 [facility] Comment on above: Performed By: #### 2 70928 ####[facility],[address] [place] [address] LIPASEon 12-13-2024 Lipase [Catalytic activity/Vol] 76.0 U/L Normal 15.0 - 78.0 [facility] Comment on above: Result Comment: *PLE ASE NOTE THAT RANGES FOR LIPASE HAVE CHANGED OF 04/12/23 DUE TO AN ASSAYUPDATE BY THE PARTS COORDINATOR.THE NEW ASSAY RANGE IS 6-250 U/L, WITH A REFERENCERANGE OF 16-77 U/L. Performed By: #### 2 80443 ####[facility],[address] [place] [address] CBC + DIFFon 12-09-2024 Baso # 0.02 x10EE3/UL Normal 0.00 - 0.10 [facility] Comment on above: Performed By: #### 2 59128 ####[facility],[address] [place] [address] Basophils/100 WBC (Bld) 0.2 % Normal 0.0 - 2.0 [facility] Comment on above: Performed By: #### 2 77290 ####[facility],[address] [place] [address] CBC + DIFF Normal [facility] Comment on above: Result Comment: CBC- COMPLETE BLOOD COUNT Performed By: #### 2 40960 ####[facility],[address] [place] [address] EO # 0.13 x10EE3/UL Normal 0.00 - 0.50 [facility] Comment on above: Performed By: #### 2 36507 ####[facility],[address] [place], [place] [phone] Eosinophils/100 WBC (Bld) 1.4 % Normal 0.0 - 7.0 [facility] Comment on above: Performed By: #### 2 13998 ####[facility],[address] [place] [address] Erythrocyte distribution width (RBC) [Ratio] 13.8 % Normal 12.0 - 15.6 [facility] Comment on above: Performed By: #### 2 69701 ####[facility],[address] [place] [address] Hematocrit (Bld) [Volume fraction] 46.0 % Normal 34.0 - 46.0 [facility] Comment on above: Performed By: #### 2 51438 ####[facility],[address] [place] [address] Hemoglobin (Bld) [Mass/Vol] 16.1 g/dL High 12.0 - 16.0 [facility] Comment on above: Performed By: #### 2 34980 ####[facility],[address] [place] [address] 00133 Lymph # 1.12 x10EE3/UL Normal 0.80 - 2.80 [facility] Comment on above: Performed By: #### 2 75210 ####[facility],[address] [place], [place] [phone] Lymphocytes/100 WBC (Bld) 12.0 % Low 20.0 - 45.0 [facility] Comment on above: Performed By: #### 2 68144 ####[facility],[address] [place], [place] [phone] MANUAL DIFF N/A Normal [facility] Comment on above: Performed By: #### 2 69885 ####[address],[place] [address] MCH (RBC) [Entitic mass] 30 pg Normal 27 - 33 [facility] Comment on above: Performed By: #### 2 01744 ####[facility],[address] [place] [address] MCHC 35 X10 3 Normal 32 - 36 [facility] Comment on above: Performed By: #### 2 95380 ####[facility],[address] [place] [address] MCV (RBC) [Entitic vol] 86 fL Normal 80 - 99 [facility] Comment on above: Performed By: #### 2 01219 ####[facility],[address] [place] [address] Merrick # 0.61 x10EE3/UL Normal 0.20 - 1.00 [facility] Comment on above: Performed By: #### 2 36412 ####[facility],[address] [place] [address] MONOS % 6.5 % Normal 0.0 - 10.0 [facility] Comment on above: Performed By: #### 2 43788 ####[facility],[address] [place] [address] Morphology Julian (Bld) [Interp] N/A Normal [facility] Comment on above: Performed By: #### 2 60549 ####[facility],[address] [place] [address] Neut # 7.44 x10EE3/UL High 1.50 - 7.10 [facility] Comment on above: Performed By: #### 2 43102 ####[facility],[address] [place] [address] Neutrophils/100 WBC (Bld) 79.9 % High 46.0 - 76.0 [facility] Comment on above: Performed By: #### 2 49058 ####[facility],[address] [place] [address] 37221 PLATELET 309 x10EE3/UL Normal 150 - 450 [facility] Comment on above: Performed By: #### 2 55204 ####[facility],[address] [place] [address] 70955 Platelet mean volume (Bld) [Entitic vol] 7.8 fL Normal 6.6 - 10.5 [facility] Comment on above: Result Comment: AUTO MATED DIFFERENTIAL Performed By: #### 2 15186 ####[facility],[address] [place] [address] 22347 RBC 5.33 x 10EE6/UL High 4.10 - 5.30 [facility] Comment on above: Performed By: #### 2 16064 ####[facility],[address] [place] [address] 00102 WBC 9.3 x 10EE3/UL Normal 4.5 - 10.8 [facility] Comment on above: Performed By: #### 2 17797 ####[facility],[address] [place] [address] 87681 CMP with eGFRon 12-09-2024 AGE 74 years Normal [facility] Comment on above: Performed By: #### 2 33822 ####[facility],[address] [place] [address] 52694 Albumin [Mass/Vol] 4.4 g/dL Normal 3.4 - 5.0 [facility] Comment on above: Performed By: #### 2 48015 ####[facility],[address] [place] [address] 85293 Albumin/Globulin [Mass ratio] 1.1 {ratio} Normal 0.9 - 1.6 [facility] Comment on above: Performed By: #### 2 35998 ####[facility],[address] [place] [address] 19456 ALK PHOS 105 U/L Normal 46 - 116 [facility] Comment on above: Performed By: #### 2 87389 ####[facility],[address] [place] [address] 58579 ALT [Catalytic activity/Vol] 27 U/L Normal 16 - 63 [facility] Comment on above: Performed By: #### 2 34475 ####[facility],[address] [place] [address] 01749 Anion gap [Moles/Vol] 17 mmol/L Normal 10 - 20 [facility] Comment on above: Performed By: #### 2 82045 ####[facility],[address] [place] [address] 38001 AST [Catalytic activity/Vol] 21 U/L Normal 13 - 39 [facility] Comment on above: Performed By: #### 2 72592 ####[facility],[address] [place] [address] 88095 B/C RATIO 20 ratio Normal 0 - 30 [facility] Comment on above: Performed By: #### 2 65954 ####[facility],[address] [place] [address] 16834 Bilirubin [Mass/Vol] 0.5 mg/dL Normal 0.2 - 1.0 [facility] Comment on above: Performed By: #### 2 89978 ####[facility],[address] [place] [address] 84024 Calcium [Mass/Vol] 9.8 mg/dL Normal 8.5 - 10.1 [facility] Comment on above: Performed By: #### 2 57009 ####[facility],[address] [place] [address] 82086 Chloride [Moles/Vol] 97 mmol/L Low 98 - 107 [facility] Comment on above: Performed By: #### 2 63073 ####[facility],[address] [place] [address] 65381 CMP with eGFR Normal [facility] Comment on above: Result Comment: COMP REHENSIVE METABOLIC PANEL Performed By: #### 2 72912 ####[facility],[address] [place] [address] 52302 CO2 [Moles/Vol] 32.6 mmol/L High 21.0 - 32.0 [facility] Comment on above: Performed By: #### 2 30319 ####[facility],[address] [place] [address] 75504 Creatinine [Mass/Vol] 1.11 mg/dL High 0.55 - 1.02 [facility] Comment on above: Performed By: #### 2 66011 ####[facility],[address] [place] [address] 17953 eGFR 48 ML/MINUTE Low 60 - 999 [facility] Comment on above: Performed By: #### 2 72883 ####[facility],[address] [place] [address] 97859 eGFR(AA) 58 ML/MINUTE Low 60 - 999 [facility] Comment on above: Result Comment: ACCO RDING TO THE NATIONAL KIDNEY DISEASE EDUCATION PROGRAM(NKDE), A NORMAL eGFRIS A VALUE GREATER THAN OR EQUAL TO 60 ML/MIN/1.73 SQ METERS.CHRONIC KIDNEY DISEASE: <60mL/MIN/1.73 SQ METERSKIDNEY FAILURE: <15mL/MIN/1.73 SQ METERSTHIS TEST SHOULD ONLY BE USED FOR PATIENTS 18 YEARS OF AGE AND OLDER. Performed By: #### 2 04107 ####[facility],[address] [place] [address] 63906 Globulin (S) [Mass/Vol] 4.0 g/dL High 1.5 - 3.8 [facility] Comment on above: Performed By: #### 2 75982 ####[facility],[address] [place] [address] 07818 Glucose [Mass/Vol] 143 mg/dL High 74 - 106 [facility] Comment on above: Performed By: #### 2 92779 ####[facility],[address] [place] [address] 83697 Potassium [Moles/Vol] 3.3 mmol/L Low 3.5 - 5.1 [facility] Comment on above: Performed By: #### 2 53888 ####[facility],[address] [place] [address] 14107 Protein [Mass/Vol] 8.4 g/dL High 6.4 - 8.2 [facility] Comment on above: Performed By: #### 2 00324 ####[facility],[address] [place] [address] 91660 Sodium [Moles/Vol] 143 mmol/L Normal 136 - 145 [facility] Comment on above: Performed By: #### 2 34521 ####[facility],[address] [place], [place] [phone] Urea nitrogen [Mass/Vol] 22 mg/dL High 7 - 18 [facility] Comment on above: Performed By: #### 2 24664 ####[facility],[address] [place], [place] [id number] ED MED ADMINISTRATION DETAIL on 12-09-2024 ED MED ADMINISTRATION DETAIL Normal [facility] ED NURSES CLINICAL NOTEon ED NURSES CLINICAL NOTE Normal [facility] ED ORDER SHEET (CPOE ONLY)on 12-09-2024 ED ORDER SHEET (CPOE ONLY) Normal [facility] ED PHYSICIAN CLINICAL REPORT on 12-09-2024 ED PHYSICIAN CLINICAL REPORT Normal [facility] ED SUPER BILLon 12-09-2024 ED SUPER BILL Normal [facility] ED VISIT SUMMARYon ED VISIT SUMMARY Normal [facility] ED VITALS FLOW SHEETon 12-09 ED VITALS FLOW SHEET Normal [facility] CBC + DIFFon 12-06-2024 Baso # 0.03 x10EE3/UL Normal 0.00 - 0.10 [facility] Comment on above: Performed By: #### 2 31502 ####[facility],[address] [place], [place] [phone] Basophils/100 WBC (Bld) 0.3 % Normal 0.0 - 2.0 [facility] Comment on above: Performed By: #### 2 52518 ####[facility],[address] [place] [address] CBC + DIFF Normal [facility] Comment on above: Result Comment: CBC- COMPLETE BLOOD COUNT Performed By: #### 2 95477 ####[facility],[address] [place] [address] EO # 0.07 x10EE3/UL Normal 0.00 - 0.50 [facility] Comment on above: Performed By: #### 2 75485 ####[facility],[address] [place] [address] Eosinophils/100 WBC (Bld) 0.6 % Normal 0.0 - 7.0 [facility] Comment on above: Performed By: #### 2 20655 ####[facility],[address] [place] [address] Erythrocyte distribution width (RBC) [Ratio] 13.8 % Normal 12.0 - 15.6 [facility] Comment on above: Performed By: #### 2 28870 ####[facility],[address] [place] [address] Hematocrit (Bld) [Volume fraction] 50.0 % High 34.0 - 46.0 [facility] Comment on above: Performed By: #### 2 61406 ####[facility],[address] [place] [address] Hemoglobin (Bld) [Mass/Vol] 17.3 g/dL High 12.0 - 16.0 [facility] Comment on above: Performed By: #### 2 53591 ####[facility],[address] [place] [address] Lymph # 1.55 x10EE3/UL Normal 0.80 - 2.80 [facility] Comment on above: Performed By: #### 2 11267 ####[facility],[address] [place], [place] [phone] Lymphocytes/100 WBC (Bld) 13.8 % Low 20.0 - 45.0 [facility] Comment on above: Performed By: #### 2 42157 ####[facility],[address] [place] [address] MANUAL DIFF N/A Normal [facility] Comment on above: Performed By: #### 2 27717 ####[facility],[address] [place] [address] MCH (RBC) [Entitic mass] 30 pg Normal 27 - 33 [facility] Comment on above: Performed By: #### 2 16036 ####[facility],[address] [place] [address] MCHC 35 X10 3 Normal 32 - 36 [facility] Comment on above: Performed By: #### 2 87936 ####[facility],[address] [place] [address] MCV (RBC) [Entitic vol] 86 fL Normal 80 - 99 [facility] Comment on above: Performed By: #### 2 10165 ####[facility],[address] [place] [address] Merrick # 0.75 x10EE3/UL Normal 0.20 - 1.00 [facility] Comment on above: Performed By: #### 2 53455 ####[facility],[address] [place] [address] MONOS % 6.7 % Normal 0.0 - 10.0 [facility] Comment on above: Performed By: #### 2 85789 ####[facility],[address] [place], [place] [phone] Morphology Julian (Bld) [Interp] N/A Normal [facility] Comment on above: Performed By: #### 2 97825 ####[facility],[address] [place] [address] 49221 Neut # 8.82 x10EE3/UL High 1.50 - 7.10 [facility] Comment on above: Performed By: #### 2 07410 ####[facility],[address] [place] [address] 42337 Neutrophils/100 WBC (Bld) 78.6 % High 46.0 - 76.0 [facility] Comment on above: Performed By: #### 2 87025 ####[facility],[address] [place] [address] 55579 PLATELET 360 x10EE3/UL Normal 150 - 450 [facility] Comment on above: Performed By: #### 2 06091 ####[facility],[address] [place] [address] 51520 Platelet mean volume (Bld) [Entitic vol] 8.0 fL Normal 6.6 - 10.5 [facility] Comment on above: Result Comment: AUTO MATED DIFFERENTIAL Performed By: #### 2 02920 ####[facility],[address] [place] [address] 97127 RBC 5.80 x 10EE6/UL High 4.10 - 5.30 [facility] Comment on above: Performed By: #### 2 83480 ####[facility],[address] [place] [address] 23924 WBC 11.2 x 10EE3/UL High 4.5 - 10.8 [facility] Comment on above: Performed By: #### 2 95444 ####[facility],[address] [place] [address] 67296 CMP with eGFRon 12-06-2024 AGE 74 years Normal [facility] Comment on above: Performed By: #### 2 26858 ####[facility],[address] [place] [address] 95708 Albumin [Mass/Vol] 4.7 g/dL Normal 3.4 - 5.0 [facility] Comment on above: Performed By: #### 2 22578 ####[facility],[address] [place] [address] 13425 Albumin/Globulin [Mass ratio] 1.1 {ratio} Normal 0.9 - 1.6 [facility] Comment on above: Performed By: #### 2 03175 ####[facility],[address] [place] [address] 40520 ALK PHOS 111 U/L Normal 46 - 116 [facility] Comment on above: Performed By: #### 2 97964 ####[facility],[address] [place] [address] 54017 ALT [Catalytic activity/Vol] 27 U/L Normal 16 - 63 [facility] Comment on above: Performed By: #### 2 93513 ####[facility],[address] [place] [address] 99816 Anion gap [Moles/Vol] 22 mmol/L High 10 - 20 [facility] Comment on above: Performed By: #### 2 81129 ####[facility],[address] [place] [address] 18660 AST [Catalytic activity/Vol] 22 U/L Normal 13 - 39 [facility] Comment on above: Performed By: #### 2 92643 ####[facility],[address] [place] [address] 04743 B/C RATIO 15 ratio Normal 0 - 30 [facility] Comment on above: Performed By: #### 2 51487 ####[facility],[address] [place] [address] 40288 Bilirubin [Mass/Vol] 0.5 mg/dL Normal 0.2 - 1.0 [facility] Comment on above: Performed By: #### 2 00439 ####[facility],[address] [place] [address] 95456 Calcium [Mass/Vol] 10.4 mg/dL High 8.5 - 10.1 [facility] Comment on above: Performed By: #### 2 27088 ####[facility],[address] [place], [place] [phone] Chloride [Moles/Vol] 95 mmol/L Low 98 - 107 [facility] Comment on above: Performed By: #### 2 92775 ####[facility],[address] [place] [address] CMP with eGFR Normal [facility] Comment on above: Result Comment: COMP REHENSIVE METABOLIC PANEL Performed By: #### 2 21602 ####[facility],[address] [place] [address] CO2 [Moles/Vol] 24.2 mmol/L Normal 21.0 - 32.0 [facility] Comment on above: Performed By: #### 2 35301 ####[facility],[address] [place] [address] Creatinine [Mass/Vol] 1.84 mg/dL High 0.55 - 1.02 [facility] Comment on above: Performed By: #### 2 88996 ####[facility],[address] [place] [address] eGFR 27 ML/MINUTE Low 60 - 999 [facility] Comment on above: Performed By: #### 2 87171 ####[facility],[address] [place], [place] [id number] eGFR(AA) 33 ML/MINUTE Low 60 - 999 [facility] Comment on above: Result Comment: ACCO RDING TO THE NATIONAL KIDNEY DISEASE EDUCATION PROGRAM(NKDE), A NORMAL eGFRIS A VALUE GREATER THAN OR EQUAL TO 60 ML/MIN/1.73 SQ METERS.CHRONIC KIDNEY DISEASE: <60mL/MIN/1.73 SQ METERSKIDNEY FAILURE: <15mL/MIN/1.73 SQ METERSTHIS TEST SHOULD ONLY BE USED FOR PATIENTS 18 YEARS OF AGE AND OLDER. Performed By: #### 2 20438 ####[facility],[address],[place] [address] Globulin (S) [Mass/Vol] 4.4 g/dL High 1.5 - 3.8 [facility] Comment on above: Performed By: #### 2 47282 ####[facility],[address] [place] [address] 13431 Glucose [Mass/Vol] 154 mg/dL High 74 - 106 [facility] Comment on above: Performed By: #### 2 07530 ####[facility],[address] [place] [address] 85265 Potassium [Moles/Vol] 3.8 mmol/L Normal 3.5 - 5.1 [facility] Comment on above: Performed By: #### 2 10306 ####[facility],[address] [place] [address] 36548 Protein [Mass/Vol] 9.1 g/dL High 6.4 - 8.2 [facility] Comment on above: Performed By: #### 2 40349 ####[facility],[address] [place] [address] 24061 Sodium [Moles/Vol] 137 mmol/L Normal 136 - 145 [facility] Comment on above: Performed By: #### 2 66246 ####[facility],[address] [place] [address] 66647 Urea nitrogen [Mass/Vol] 28 mg/dL High 7 - 18 [facility] Comment on above: Performed By: #### 2 50184 ####[facility],[address] [place] [address] 42290 ED MED ADMINISTRATION DETAIL on 12-06-2024 ED MED ADMINISTRATION DETAIL Normal [facility] ED NURSES CLINICAL NOTEon ED NURSES CLINICAL NOTE Normal [facility] ED ORDER SHEET (CPOE ONLY)on 12-06-2024 ED ORDER SHEET (CPOE ONLY) Normal [facility] ED PHYSICIAN CLINICAL REPORT on 12-06-2024 ED PHYSICIAN CLINICAL REPORT Normal [facility] ED SUPER BILLon 12-06-2024 ED SUPER BILL Normal [facility] ED VISIT SUMMARYon ED VISIT SUMMARY Normal [facility] ED VITALS FLOW SHEETon 12-06 ED VITALS FLOW SHEET Normal [facility] LACTATEon 12-06-2024 Lactate [Moles/Vol] 2.2 mmol/L High 0.4 - 2.0 [facility] Comment on above: Result Comment: LACT ATE 3 HR NOTIFIED TO: _NATE 12/06/24.1112.CWB. . . LACTATE 3 HR NOTIFIED BY: _CWB 12/06/24.1112.CWB. . . Performed By: #### 2 44237 ####[place] [address] LIPASEon 12-06-2024 Lipase [Catalytic activity/Vol] 136.0 U/L High 15.0 - 78.0 [facility] Comment on above: Result Comment: *PLE ASE NOTE THAT RANGES FOR LIPASE HAVE CHANGED OF 04/12/23 DUE TO AN ASSAYUPDATE BY THE PARTS COORDINATOR.THE NEW ASSAY RANGE IS 6-250 U/L, WITH A REFERENCERANGE OF 16-77 U/L. Performed By: #### 2 16380 ####[facility],[address] [place] [address] TROPONINon 12-06-2024 HS TROPONIN 4.8 pg/mL Normal 0.0 - 51.4 [facility] Comment on above: Performed By: #### 2 13533 ####[facility],[address] [place] [address] URINALYSISon 12-06-2024 Amorphous NONE Normal [facility] Comment on above: Performed By: #### 2 21318 ####[place] [id number] Bacteria 4+ Normal [facility] Comment on above: Performed By: #### 2 72703 ####[facility],[address] [place] [address] 05882 Bilirubin Ql (U) Negative Normal NORMAL: NEGATIVE [facility] Comment on above: Performed By: #### 2 33782 ####[facility],[address] [place] [address] 87952 Calcium Ox 1+ Normal NORMAL: NONE [facility] Comment on above: Performed By: #### 2 25399 ####[facility],[address] [place], [place] [phone] Casts SEE BELOW Normal [facility] Comment on above: Performed By: #### 2 34034 ####[facility],[address] [place] [address] 19408 Clarity (U) sl.cloudy Normal NORMAL: CLEAR [facility] Comment on above: Performed By: #### 2 20815 ####[facility],[address] [place] [address] 51570 Color (U) brown Normal NORMAL: YELLOW [facility] Comment on above: Performed By: #### 2 26627 ####[facility],[address] [place] [address] 14872 Crystals LM Nom (Urine sed) SEE BELOW Normal [facility] Comment on above: Performed By: #### 2 35716 ####[facility],[address] [place] [address] 64314 Epi Cells MANY Normal [facility] Comment on above: Performed By: #### 2 30217 ####[facility],[address] [place] [address] 49345 Glucose Ql (U) NORM Normal NORMAL: NORMAL [facility] Comment on above: Performed By: #### 2 17069 ####[facility],[address] [place] [address] 68769 Hemoglobin Ql (U) 10 Abnormal NORMAL: NEGATIVE [facility] Comment on above: Performed By: #### 2 43002 ####[facility],[address] [place] [address] 04149 Hyaline 1-5 Normal NORMAL: NONE [facility] Comment on above: Performed By: #### 2 36978 ####[facility],[address] [place] [address] 25788 Ketone 50 Abnormal NORMAL: NEGATIVE [facility] Comment on above: Performed By: #### 2 92027 ####[facility],[address] [place] [address] 13347 Leukocytes 25 Abnormal NORMAL: NEGATIVE [facility] Comment on above: Performed By: #### 2 53712 ####[facility],[address] [place] [address] Mucous NONE Normal [facility] Comment on above: Performed By: #### 2 42081 ####[facility],[address] [place] [address] 30438 Nitrite Ql (U) Negative Normal NORMAL: NEGATIVE [facility] Comment on above: Performed By: #### 2 98687 ####[facility],[address] [place] [address] 12963 pH (U) 5 [pH] Normal NORMAL: 5.0-8.0 [facility] Comment on above: Performed By: #### 2 50820 ####[facility],[address] [place] [address] 91170 Protein Ql (U) 30 Abnormal NORMAL: NEGATIVE [facility] Comment on above: Performed By: #### 2 25345 ####[facility],[address] [place] [address] 79013 Rbc NONE Normal 0-3/hpf [facility] Comment on above: Performed By: #### 2 73238 ####[facility],[address] [place] [address] 61955 Sp [place] 1.025 Normal NORMAL: 1.010-1.030 [facility] Comment on above: Performed By: #### 2 89339 ####[facility],[address] [place] [address] 14773 Specimen Type R Normal [facility] Comment on above: Performed By: #### 2 11138 ####[facility],[address] [place] [address] 24490 Urinalysis dipstick W Reflex Microscopic panel (U) SEE BELOW Normal [facility] Comment on above: Result Comment: MICR OSCOPIC Performed By: #### 2 42286 ####[facility],[address] [place], [place] [phone] Urobilinog NORM Normal NORMAL: NORMAL [facility] Comment on above: Performed By: #### 2 88399 ####[facility],[address] [place] [address] 23941 Wbc 1-5 Normal 0-5/hpf [facility] Comment on above: Performed By: #### 2 56255 ####[facility],[address] [place] [address] 77368 Yeast NONE Normal [facility] Comment on above: Performed By: #### 2 38905 ####[facility],[address] [place] [address] 76518 BMP with eGFRon 12-02-2024 AGE 74 years Normal [facility] Comment on above: Performed By: #### 2 80090 ####[facility],[address] [place] [address] 06661 Anion gap [Moles/Vol] 12 mmol/L Normal - [facility] Comment on above: Performed By: #### 2 24854 ####[facility],[address] [place] [address] 85889 BMP with eGFR Normal [facility] Comment on above: Result Comment: BASI C METABOLIC PANEL Performed By: #### 2 16327 ####[facility],[address] [place] [address] 28686 Calcium [Mass/Vol] 8.0 mg/dL Low 8.5 - 10.1 [facility] Comment on above: Performed By: #### 2 64243 ####[facility],[address] [place] [address] 89158 Chloride [Moles/Vol] 105 mmol/L Normal 98 - 107 [facility] Comment on above: Performed By: #### 2 67839 ####[facility],[address] [place] [address] 89102 CO2 [Moles/Vol] 26.0 mmol/L Normal 21.0 - 32.0 [facility] Comment on above: Performed By: #### 2 59388 ####[facility],[address] [place] [address] 33957 Creatinine [Mass/Vol] 1.19 mg/dL High 0.55 - 1.02 [facility] Comment on above: Performed By: #### 2 28746 ####[facility],[address] [place] [address] 64038 eGFR 44 ML/MINUTE Low 60 - 999 [facility] Comment on above: Performed By: #### 2 56408 ####[facility],[address] [place] [address] 39963 eGFR(AA) 54 ML/MINUTE Low 60 - 999 [facility] Comment on above: Result Comment: ACCO RDING TO THE NATIONAL KIDNEY DISEASE EDUCATION PROGRAM(NKDE), A NORMAL eGFRIS A VALUE GREATER THAN OR EQUAL TO 60 ML/MIN/1.73 SQ METERS.CHRONIC KIDNEY DISEASE: <60mL/MIN/1.73 SQ METERSKIDNEY FAILURE: <15mL/MIN/1.73 SQ METERSTHIS TEST SHOULD ONLY BE USED FOR PATIENTS 18 YEARS OF AGE AND OLDER. Performed By: #### 2 90765 ####[facility],[address] [place] [address] 38234 Glucose [Mass/Vol] 93 mg/dL Normal 74 - 106 [facility] Comment on above: Performed By: #### 2 30516 ####[facility],[address] [place] [address] 36421 Potassium [Moles/Vol] 4.0 mmol/L Normal 3.5 - 5.1 [facility] Comment on above: Performed By: #### 2 14396 ####[facility],[address] [place] [address] 33239 Sodium [Moles/Vol] 139 mmol/L Normal 136 - 145 [facility] Comment on above: Performed By: #### 2 87865 ####[facility],[address] [place] [address] Urea nitrogen [Mass/Vol] 22 mg/dL High 7 - 18 [facility] Comment on above: Performed By: #### 2 13321 ####[facility],[address] [place] [address] CBC + DIFFon 12-02-2024 Baso # 0.03 x10EE3/UL Normal 0.00 - 0.10 [facility] Comment on above: Performed By: #### 2 30511 ####[facility],[address] [place] [address] 17332 Basophils/100 WBC (Bld) 0.3 % Normal 0.0 - 2.0 [facility] Comment on above: Performed By: #### 2 68600 ####[facility],[address] [place] [address] 96871 CBC + DIFF Normal [facility] Comment on above: Result Comment: CBC- COMPLETE BLOOD COUNT Performed By: #### 2 06093 ####[facility],[address] [place] [address] 29162 EO # 0.07 x10EE3/UL Normal 0.00 - 0.50 [facility] Comment on above: Performed By: #### 2 43134 ####[facility],[address] [place] [address] 70323 Eosinophils/100 WBC (Bld) 0.7 % Normal 0.0 - 7.0 [facility] Comment on above: Performed By: #### 2 73423 ####[facility],[address] [place] [address] Erythrocyte distribution width (RBC) [Ratio] 13.9 % Normal 12.0 - 15.6 [facility] Comment on above: Performed By: #### 2 00664 ####[facility],[address] [place], [place] [phone] Hematocrit (Bld) [Volume fraction] 50.7 % High 34.0 - 46.0 [facility] Comment on above: Performed By: #### 2 63565 ####[facility],[address] [place] [address] Hemoglobin (Bld) [Mass/Vol] 17.6 g/dL High 12.0 - 16.0 [facility] Comment on above: Performed By: #### 2 88086 ####[facility],[address] [place] [address] Lymph # 0.91 x10EE3/UL Normal 0.80 - 2.80 [facility] Comment on above: Performed By: #### 2 05179 ####[facility],[address] [place], [place] [phone] Lymphocytes/100 WBC (Bld) 9.5 % Low 20.0 - 45.0 [facility] Comment on above: Performed By: #### 2 20103 ####[facility],[address] [place] [address] 37062 MANUAL DIFF N/A Normal [facility] Comment on above: Performed By: #### 2 90555 ####[facility],[address] [place] [address] 94796 MCH (RBC) [Entitic mass] 30 pg Normal 27 - 33 [facility] Comment on above: Performed By: #### 2 51291 ####[facility],[address] [place] [address] MCHC 35 X10 3 Normal 32 - 36 [facility] Comment on above: Performed By: #### 2 13252 ####[facility],[address] [place], [place] [phone] MCV (RBC) [Entitic vol] 86 fL Normal 80 - 99 [facility] Comment on above: Performed By: #### 2 86399 ####[facility],[address] [place] [address] [place] # 0.51 x10EE3/UL Normal 0.20 - 1.00 [facility] Comment on above: Performed By: #### 2 14173 ####[facility],[address] [place] [address] MONOS % 5.3 % Normal 0.0 - 10.0 [facility] Comment on above: Performed By: #### 2 30528 ####[facility],[address] [place], [place] [phone] Morphology Julian (Bld) [Interp] N/A Normal [facility] Comment on above: Performed By: #### 2 71065 ####[facility],[address] [place] [address] Neut # 8.12 x10EE3/UL High 1.50 - 7.10 [facility] Comment on above: Performed By: #### 2 29695 ####[facility],[address] [place], [place] [phone] Neutrophils/100 WBC (Bld) 84.2 % High 46.0 - 76.0 [facility] Comment on above: Performed By: #### 2 49061 ####[facility],[address] [place], [place] [phone] PLATELET 317 x10EE3/UL Normal 150 - 450 [facility] Comment on above: Performed By: #### 2 82868 ####[facility],[address] [place] [address] 40479 Platelet mean volume (Bld) [Entitic vol] 8.1 fL Normal 6.6 - 10.5 [facility] Comment on above: Result Comment: AUTO MATED DIFFERENTIAL Performed By: #### 2 57780 ####[facility],[address] [place] [address] 34661 RBC 5.90 x 10EE6/UL High 4.10 - 5.30 [facility] Comment on above: Performed By: #### 2 04058 ####[facility],[address] [place] [address] 76555 WBC 9.6 x 10EE3/UL Normal 4.5 - 10.8 [facility] Comment on above: Performed By: #### 2 48785 ####[facility],[address] [place] [address] 48429 CMP with eGFRon 12-02-2024 AGE 74 years Normal [facility] Comment on above: Performed By: #### 2 66261 ####[facility],[address] [place] [address] 92377 Albumin [Mass/Vol] 4.8 g/dL Normal 3.4 - 5.0 [facility] Comment on above: Performed By: #### 2 44686 ####[facility],[address] [place] [address] 41672 Albumin/Globulin [Mass ratio] 1.0 {ratio} Normal 0.9 - 1.6 [facility] Comment on above: Performed By: #### 2 51147 ####[facility],[address] [place] [address] 50040 ALK PHOS 114 U/L Normal 46 - 116 [facility] Comment on above: Performed By: #### 2 80865 ####[facility],[address] [place] [address] 70221 ALT [Catalytic activity/Vol] 25 U/L Normal 16 - 63 [facility] Comment on above: Performed By: #### 2 36691 ####[facility],[address] [place] [address] 56768 Anion gap [Moles/Vol] 18 mmol/L Normal 10 - 20 [facility] Comment on above: Performed By: #### 2 14450 ####[facility],[address] [place] [address] 55525 AST [Catalytic activity/Vol] 21 U/L Normal 13 - 39 [facility] Comment on above: Performed By: #### 2 96405 ####[facility],[address] [place] [address] 63540 B/C RATIO 13 ratio Normal 0 - 30 [facility] Comment on above: Performed By: #### 2 20180 ####[facility],[address] [place] [address] 76814 Bilirubin [Mass/Vol] 0.5 mg/dL Normal 0.2 - 1.0 [facility] Comment on above: Performed By: #### 2 74034 ####[facility],[address] [place] [address] 35385 Calcium [Mass/Vol] 10.5 mg/dL High 8.5 - 10.1 [facility] Comment on above: Performed By: #### 2 40865 ####[facility],[address] [place] [address] 65477 Chloride [Moles/Vol] 96 mmol/L Low 98 - 107 [facility] Comment on above: Performed By: #### 2 40165 ####[facility],[address] [place] [address] 35300 CMP with eGFR Normal [facility] Comment on above: Result Comment: COMP REHENSIVE METABOLIC PANEL Performed By: #### 2 96733 ####[facility],[address] [place] [address] 97395 CO2 [Moles/Vol] 29.4 mmol/L Normal 21.0 - 32.0 [facility] Comment on above: Performed By: #### 2 24230 ####[facility],[address] [place] [address] 64514 Creatinine [Mass/Vol] 1.71 mg/dL High 0.55 - 1.02 [facility] Comment on above: Performed By: #### 2 56615 ####[facility],[address] [place] [address] 08622 eGFR 29 ML/MINUTE Low 60 - 999 [facility] Comment on above: Performed By: #### 2 04267 ####[facility],[address] [place] [address] 54265 eGFR(AA) 35 ML/MINUTE Low 60 - 999 [facility] Comment on above: Result Comment: ACCO RDING TO THE NATIONAL KIDNEY DISEASE EDUCATION PROGRAM(NKDE), A NORMAL eGFRIS A VALUE GREATER THAN OR EQUAL TO 60 ML/MIN/1.73 SQ METERS.CHRONIC KIDNEY DISEASE: <60mL/MIN/1.73 SQ METERSKIDNEY FAILURE: <15mL/MIN/1.73 SQ METERSTHIS TEST SHOULD ONLY BE USED FOR PATIENTS 18 YEARS OF AGE AND OLDER. Performed By: #### 2 61485 ####[facility],[address] [place] [address] 43941 Globulin (S) [Mass/Vol] 4.7 g/dL High 1.5 - 3.8 [facility] Comment on above: Performed By: #### 2 20418 ####[facility],[address] [place] [address] 92869 Glucose [Mass/Vol] 137 mg/dL High 74 - 106 [facility] Comment on above: Performed By: #### 2 04167 ####[facility],[address] [place] [address] 99585 Potassium [Moles/Vol] 3.4 mmol/L Low 3.5 - 5.1 [facility] Comment on above: Performed By: #### 2 95143 ####[facility],[address] [place] [address] Protein [Mass/Vol] 9.5 g/dL High 6.4 - 8.2 [facility] Comment on above: Performed By: #### 2 62581 ####[facility],[address] [place] [address] Sodium [Moles/Vol] 140 mmol/L Normal 136 - 145 [facility] Comment on above: Performed By: #### 2 82803 ####[facility],[address] [place] [address] Urea nitrogen [Mass/Vol] 22 mg/dL High 7 - 18 [facility] Comment on above: Performed By: #### 2 11707 ####[facility],[address] [place] [address] ED MED ADMINISTRATION DETAIL on 12-02-2024 ED MED ADMINISTRATION DETAIL Normal [facility] ED NURSES CLINICAL NOTEon ED NURSES CLINICAL NOTE Normal [facility] ED ORDER SHEET (CPOE ONLY)on 12-02-2024 ED ORDER SHEET (CPOE ONLY) Normal [facility] ED PHYSICIAN CLINICAL REPORT on 12-02-2024 ED PHYSICIAN CLINICAL REPORT Normal [facility] ED SUPER BILLon 12-02-2024 ED SUPER BILL Normal [facility] ED VISIT SUMMARYon ED VISIT SUMMARY Normal [facility] ED VITALS FLOW SHEETon 12-02 ED VITALS FLOW SHEET Normal [facility] LIPASEon 12-02-2024 Lipase [Catalytic activity/Vol] 179.0 U/L High 15.0 - 78.0 [facility] Comment on above: Result Comment: *PLE ASE NOTE THAT RANGES FOR LIPASE HAVE CHANGED OF 04/12/23 DUE TO AN ASSAYUPDATE BY THE PARTS COORDINATOR.THE NEW ASSAY RANGE IS 6-250 U/L, WITH A REFERENCERANGE OF 16-77 U/L. Performed By: #### 2 90491 ####[facility],[address] [place] [address] TROPONINon 12-02-2024 HS TROPONIN <4.0 Normal 0.0 - 51.4 [facility] Comment on above: Performed By: #### 2 73750 ####[facility],[address] [place] [address] 46406 URINALYSISon 12-02-2024 Amorphous NONE Normal [facility] Comment on above: Performed By: #### 2 29753 ####[facility],[address] [place], [place] [id number] Bacteria 2+ Normal [facility] Comment on above: Performed By: #### 2 03660 ####[facility],[address] [place] [address] Bilirubin Ql (U) Negative Normal NORMAL: NEGATIVE [facility] Comment on above: Performed By: #### 2 36272 ####[facility],[address] [place] [address] Casts SEE BELOW Normal [facility] Comment on above: Performed By: #### 2 26720 ####[facility],[address] [place], [place] [phone] Clarity (U) sl.cloudy Normal NORMAL: CLEAR [facility] Comment on above: Performed By: #### 2 26520 ####[facility],[address] [place] [address] 64302 Color (U) louise Normal NORMAL: YELLOW [facility] Comment on above: Performed By: #### 2 90432 ####[facility],[address] [place] [address] 92253 Crystals LM Nom (Urine sed) NONE Normal [facility] Comment on above: Performed By: #### 2 18722 ####[facility],[address] [place] [address] 78855 Epi Cells OCC Normal [facility] Comment on above: Performed By: #### 2 65986 ####[facility],[address] [place], [place] [phone] Fine Gran >25 Normal NORMAL: NONE [facility] Comment on above: Performed By: #### 2 23710 ####[facility],[address] [place] [address] 66999 Glucose Ql (U) NORM Normal NORMAL: NORMAL [facility] Comment on above: Performed By: #### 2 82426 ####[facility],[address] [place] [address] 44652 Hemoglobin Ql (U) Negative Normal NORMAL: NEGATIVE [facility] Comment on above: Performed By: #### 2 89065 ####[facility],[address] [place], [place] [phone] Ketone Negative Normal NORMAL: NEGATIVE [facility] Comment on above: Performed By: #### 2 84841 ####[facility],[address] [place] [address] 01671 Leukocytes 25 Abnormal NORMAL: NEGATIVE [facility] Comment on above: Performed By: #### 2 66963 ####[facility],[address] [place] [address] 46885 Mucous 3+ Normal [facility] Comment on above: Performed By: #### 2 01840 ####[facility],[address] [place] [address] 86459 Nitrite Ql (U) Negative Normal NORMAL: NEGATIVE [facility] Comment on above: Performed By: #### 2 68146 ####[facility],[address] [place] [address] 84566 pH (U) 5 [pH] Normal NORMAL: 5.0-8.0 [facility] Comment on above: Performed By: #### 2 30094 ####[facility],[address] [place] [address] 36611 Protein Ql (U) 30 Abnormal NORMAL: NEGATIVE [facility] Comment on above: Performed By: #### 2 97928 ####[facility],[address] [place] [address] 79940 Rbc 0-5 Normal 0-3/hpf [facility] Comment on above: Performed By: #### 2 76392 ####[facility],[address] [place] [address] Sp [place] 1.025 Normal NORMAL: 1.010-1.030 [facility] Comment on above: Performed By: #### 2 69777 ####[facility],[address] [place] [address] Specimen Type R Normal [facility] Comment on above: Performed By: #### 2 22697 ####[facility],[address] [place] [address] Urinalysis dipstick W Reflex Microscopic panel (U) SEE BELOW Normal [facility] Comment on above: Result Comment: MICR OSCOPIC Performed By: #### 2 59198 ####[facility],[address] [place] [address] Urobilinog NORM Normal NORMAL: NORMAL [facility] Comment on above: Performed By: #### 2 37957 ####[facility],[address] [place] [address] Wbc 6-10 Normal 0-5/hpf [facility] Comment on above: Performed By: #### 2 50081 ####[facility],[address] [place] [address] Yeast NONE Normal [facility] Comment on above: Performed By: #### 2 27567 ####[facility],[address] [place] [address] CBC + DIFFon 11-22-2024 Baso # 0.02 x10EE3/UL Normal 0.00 - 0.10 [facility] Comment on above: Performed By: #### 2 95237 ####[facility],[address] [place] [address] Basophils/100 WBC (Bld) 0.3 % Normal 0.0 - 2.0 [facility] Comment on above: Performed By: #### 2 82010 ####[facility],[address] [place] [address] CBC + DIFF Normal [facility] Comment on above: Result Comment: CBC- COMPLETE BLOOD COUNT Performed By: #### 2 92906 ####[facility],[address] [place] [address] 65889 EO # 0.16 x10EE3/UL Normal 0.00 - 0.50 [facility] Comment on above: Performed By: #### 2 40337 ####[facility],[address] [place], [place] [phone] Eosinophils/100 WBC (Bld) 2.7 % Normal 0.0 - 7.0 [facility] Comment on above: Performed By: #### 2 68998 ####[facility],[address] [place] [address] Erythrocyte distribution width (RBC) [Ratio] 13.6 % Normal 12.0 - 15.6 [facility] Comment on above: Performed By: #### 2 96078 ####[facility],[address] [place] [address] Hematocrit (Bld) [Volume fraction] 46.5 % High 34.0 - 46.0 [facility] Comment on above: Performed By: #### 2 41113 ####[facility],[address] [place], [place] [phone] Hemoglobin (Bld) [Mass/Vol] 16.1 g/dL High 12.0 - 16.0 [facility] Comment on above: Performed By: #### 2 21569 ####[facility],[address] [place], [place] [phone] Lymph # 1.05 x10EE3/UL Normal 0.80 - 2.80 [facility] Comment on above: Performed By: #### 2 36695 ####[facility],[address] [place], [place] [phone] Lymphocytes/100 WBC (Bld) 17.3 % Low 20.0 - 45.0 [facility] Comment on above: Performed By: #### 2 17684 ####[facility],[address] [place] [address] MANUAL DIFF N/A Normal [facility] Comment on above: Performed By: #### 2 55413 ####[facility],[address] [place] [address] MCH (RBC) [Entitic mass] 30 pg Normal 27 - 33 [facility] Comment on above: Performed By: #### 2 92759 ####[facility],[address] [place] [address] MCHC 35 X10 3 Normal 32 - 36 [facility] Comment on above: Performed By: #### 2 26035 ####[facility],[address] [place] [address] MCV (RBC) [Entitic vol] 87 fL Normal 80 - 99 [facility] Comment on above: Performed By: #### 2 47330 ####[facility],[address] [place] [address] Merrick # 0.62 x10EE3/UL Normal 0.20 - 1.00 [facility] Comment on above: Performed By: #### 2 03998 ####[facility],[address] [place] [address] MONOS % 10.1 % High 0.0 - 10.0 [facility] Comment on above: Performed By: #### 2 41019 ####[facility],[address] [place] [address] Morphology Julian (Bld) [Interp] N/A Normal [facility] Comment on above: Performed By: #### 2 64096 ####[place] [address] Neut # 4.23 x10EE3/UL Normal 1.50 - 7.10 [facility] Comment on above: Performed By: #### 2 04035 ####[facility],[address] [place] [address] 24530 Neutrophils/100 WBC (Bld) 69.6 % Normal 46.0 - 76.0 [facility] Comment on above: Performed By: #### 2 35222 ####[facility],[address] [place] [address] 91514 PLATELET 260 x10EE3/UL Normal 150 - 450 [facility] Comment on above: Performed By: #### 2 09431 ####[facility],[address] [place] [address] 89018 Platelet mean volume (Bld) [Entitic vol] 7.8 fL Normal 6.6 - 10.5 [facility] Comment on above: Result Comment: AUTO MATED DIFFERENTIAL Performed By: #### 2 97052 ####[facility],[address] [place] [address] 52538 RBC 5.37 x 10EE6/UL High 4.10 - 5.30 [facility] Comment on above: Performed By: #### 2 92029 ####[facility],[address] [place] [address] 70537 WBC 6.1 x 10EE3/UL Normal 4.5 - 10.8 [facility] Comment on above: Performed By: #### 2 08298 ####[facility],[address] [place] [address] 07724 CMP with eGFRon 11-22-2024 AGE 74 years Normal [facility] Comment on above: Performed By: #### 2 71212 ####[address] [address] Albumin [Mass/Vol] 4.4 g/dL Normal 3.4 - 5.0 [facility] Comment on above: Performed By: #### 2 83165 ####[facility],[address] [place] [address] 45181 Albumin/Globulin [Mass ratio] 1.1 {ratio} Normal 0.9 - 1.6 [facility] Comment on above: Performed By: #### 2 57276 ####[facility],[address] [place] [address] 73382 ALK PHOS 103 U/L Normal 46 - 116 [facility] Comment on above: Performed By: #### 2 76428 ####[facility],[address] [place] [address] 96804 ALT [Catalytic activity/Vol] 26 U/L Normal 16 - 63 [facility] Comment on above: Performed By: #### 2 22297 ####[facility],[address] [place] [address] 98869 Anion gap [Moles/Vol] 17 mmol/L Normal 10 - 20 [facility] Comment on above: Performed By: #### 2 94855 ####[facility],[address] [place] [address] 97014 AST [Catalytic activity/Vol] 18 U/L Normal 13 - 39 [facility] Comment on above: Performed By: #### 2 62423 ####[facility],[address] [place] [address] 02808 B/C RATIO 11 ratio Normal 0 - 30 [facility] Comment on above: Performed By: #### 2 15625 ####[facility],[address] [place] [address] 06452 Bilirubin [Mass/Vol] 0.6 mg/dL Normal 0.2 - 1.0 [facility] Comment on above: Performed By: #### 2 38763 ####[facility],[address] [place] [address] 58337 Calcium [Mass/Vol] 9.9 mg/dL Normal 8.5 - 10.1 [facility] Comment on above: Performed By: #### 2 11479 ####[facility],[address] [place] [address] 44790 Chloride [Moles/Vol] 101 mmol/L Normal 98 - 107 [facility] Comment on above: Performed By: #### 2 36838 ####[facility],[address] [place] [address] 99043 CMP with eGFR Normal [facility] Comment on above: Result Comment: COMP REHENSIVE METABOLIC PANEL Performed By: #### 2 78781 ####[facility],[address] [place] [address] 99199 CO2 [Moles/Vol] 29.7 mmol/L Normal 21.0 - 32.0 [facility] Comment on above: Performed By: #### 2 15577 ####[facility],[address] [place] [address] 43186 Creatinine [Mass/Vol] 1.49 mg/dL High 0.55 - 1.02 [facility] Comment on above: Performed By: #### 2 64913 ####[facility],[address] [place] [address] 25281 eGFR 34 ML/MINUTE Low 60 - 999 [facility] Comment on above: Performed By: #### 2 16062 ####[facility],[address] [place] [address] 12418 eGFR(AA) 42 ML/MINUTE Low 60 - 999 [facility] Comment on above: Result Comment: ACCO RDING TO THE NATIONAL KIDNEY DISEASE EDUCATION PROGRAM(NKDE), A NORMAL eGFRIS A VALUE GREATER THAN OR EQUAL TO 60 ML/MIN/1.73 SQ METERS.CHRONIC KIDNEY DISEASE: <60mL/MIN/1.73 SQ METERSKIDNEY FAILURE: <15mL/MIN/1.73 SQ METERSTHIS TEST SHOULD ONLY BE USED FOR PATIENTS 18 YEARS OF AGE AND OLDER. Performed By: #### 2 28328 ####[facility],[address] [place] [address] 19759 Globulin (S) [Mass/Vol] 3.9 g/dL High 1.5 - 3.8 [facility] Comment on above: Performed By: #### 2 57340 ####[facility],[address] [place] [address] 69066 Glucose [Mass/Vol] 119 mg/dL High 74 - 106 [facility] Comment on above: Performed By: #### 2 51156 ####[facility],[address] [place] [address] 68169 Potassium [Moles/Vol] 3.8 mmol/L Normal 3.5 - 5.1 [facility] Comment on above: Performed By: #### 2 99554 ####[facility],[address] [place] [address] 04974 Protein [Mass/Vol] 8.3 g/dL High 6.4 - 8.2 [facility] Comment on above: Performed By: #### 2 84532 ####[facility],[address] [place] [address] 15588 Sodium [Moles/Vol] 144 mmol/L Normal 136 - 145 [facility] Comment on above: Performed By: #### 2 16294 ####[facility],[address] [place] [address] 21643 Urea nitrogen [Mass/Vol] 16 mg/dL Normal 7 - 18 [facility] Comment on above: Performed By: #### 2 36146 ####[facility],[address] [place] [address] 50663 ED MED ADMINISTRATION DETAIL on 11-22-2024 ED MED ADMINISTRATION DETAIL Normal [facility] ED NURSES CLINICAL NOTEon ED NURSES CLINICAL NOTE Normal [facility] ED ORDER SHEET (CPOE ONLY)on 11-22-2024 ED ORDER SHEET (CPOE ONLY) Normal [facility] ED PHYSICIAN CLINICAL REPORT on 11-22-2024 ED PHYSICIAN CLINICAL REPORT Normal [facility] ED SUPER BILLon 11-22-2024 ED SUPER BILL Normal [facility] ED VISIT SUMMARYon ED VISIT SUMMARY Normal [facility] ED VITALS FLOW SHEETon 11-22 ED VITALS FLOW SHEET Normal [facility] LIPASEon 11-22-2024 Lipase [Catalytic activity/Vol] 64.0 U/L Normal 15.0 - 78.0 [facility] Comment on above: Result Comment: *PLE ASE NOTE THAT RANGES FOR LIPASE HAVE CHANGED OF 04/12/23 DUE TO AN ASSAYUPDATE BY THE PARTS COORDINATOR.THE NEW ASSAY RANGE IS 6-250 U/L, WITH A REFERENCERANGE OF 16-77 U/L. Performed By: #### 2 72829 ####[facility],[address] [place] [address] URINALYSISon 11-22-2024 Amorphous NONE Normal [facility] Comment on above: Performed By: #### 2 64356 ####[facility],[address] [place], [place] [phone] Bacteria TRACE Normal [facility] Comment on above: Performed By: #### 2 95632 ####[facility],[address] [place] [address] 78745 Bilirubin Ql (U) Negative Normal NORMAL: NEGATIVE [facility] Comment on above: Performed By: #### 2 39515 ####[facility],[address] [place] [address] 41245 Casts NONE Normal [facility] Comment on above: Performed By: #### 2 49843 ####[facility],[address] [place] [address] 75010 Clarity (U) clear Normal NORMAL: CLEAR [facility] Comment on above: Performed By: #### 2 43569 ####[facility],[address] [place] [address] 14173 Color (U) brown Normal NORMAL: YELLOW [facility] Comment on above: Performed By: #### 2 06712 ####[facility],[address] [place] [address] 89141 Crystals LM Nom (Urine sed) NONE Normal [facility] Comment on above: Performed By: #### 2 09521 ####[facility],[address] [place] [address] 77320 Epi Cells OCC Normal [facility] Comment on above: Performed By: #### 2 46916 ####[facility],[address] [place] [address] 06978 Glucose Ql (U) NORM Normal NORMAL: NORMAL [facility] Comment on above: Performed By: #### 2 43241 ####[facility],[address] [place] [address] 62498 Hemoglobin Ql (U) Negative Normal NORMAL: NEGATIVE [facility] Comment on above: Performed By: #### 2 82300 ####[facility],[address] [place] [address] 19442 Ketone 50 Abnormal NORMAL: NEGATIVE [facility] Comment on above: Performed By: #### 2 22528 ####[facility],[address] [place] [address] 06894 Leukocytes 25 Abnormal NORMAL: NEGATIVE [facility] Comment on above: Performed By: #### 2 29361 ####[facility],[address] [place] [address] 05235 Mucous TRACE Normal [facility] Comment on above: Performed By: #### 2 18052 ####[facility],[address] [place] [address] 92773 Nitrite Ql (U) Negative Normal NORMAL: NEGATIVE [facility] Comment on above: Performed By: #### 2 34887 ####[facility],[address] [place] [address] 40776 pH (U) 6.5 [pH] Normal NORMAL: 5.0-8.0 [facility] Comment on above: Performed By: #### 2 01761 ####[facility],[address] [place] [address] 47370 Protein Ql (U) 100 Abnormal NORMAL: NEGATIVE [facility] Comment on above: Performed By: #### 2 83039 ####[facility],[address] [place] [address] 10826 Rbc NONE Normal 0-3/hpf [facility] Comment on above: Performed By: #### 2 64645 ####[facility],[address] [place] [address] Sp [place] 1.015 Normal NORMAL: 1.010-1.030 [facility] Comment on above: Performed By: #### 2 02148 ####[facility],[address] [place] [address] Specimen Type R Normal [facility] Comment on above: Performed By: #### 2 30979 ####[facility],[address] [place] [address] Urinalysis dipstick W Reflex Microscopic panel (U) SEE BELOW Normal [facility] Comment on above: Result Comment: MICR OSCOPIC Performed By: #### 2 92138 ####[facility],[address] [place] [address] Urobilinog 1 Abnormal NORMAL: NORMAL [facility] Comment on above: Performed By: #### 2 24290 ####[facility],[address] [place], [place] [phone] Wbc 1-5 Normal 0-5/hpf [facility] Comment on above: Performed By: #### 2 89570 ####[facility],[address] [place], [place] [phone] Yeast NONE Normal [facility] Comment on above: Performed By: #### 2 57025 ####[facility],[address] [place], [place] [phone] CBC + DIFFon 11-19-2024 Baso # 0.05 x10EE3/UL Normal 0.00 - 0.10 [facility] Comment on above: Performed By: #### 2 90441 ####[facility],[address] [place], [place] [phone] Basophils/100 WBC (Bld) 0.5 % Normal 0.0 - 2.0 [facility] Comment on above: Performed By: #### 2 88142 ####[facility],[address] [place] [address] CBC + DIFF Normal [facility] Comment on above: Result Comment: CBC- COMPLETE BLOOD COUNT Performed By: #### 2 84435 ####[facility],[address] [place] [address] EO # 0.10 x10EE3/UL Normal 0.00 - 0.50 [facility] Comment on above: Performed By: #### 2 74850 ####[facility],[address] [place] [address] Eosinophils/100 WBC (Bld) 1.0 % Normal 0.0 - 7.0 [facility] Comment on above: Performed By: #### 2 44412 ####[facility],[address] [place] [address] Erythrocyte distribution width (RBC) [Ratio] 13.6 % Normal 12.0 - 15.6 [facility] Comment on above: Performed By: #### 2 56999 ####[facility],[address] [place] [address] Hematocrit (Bld) [Volume fraction] 45.9 % Normal 34.0 - 46.0 [facility] Comment on above: Performed By: #### 2 85089 ####[facility],[address] [place] [address] Hemoglobin (Bld) [Mass/Vol] 15.7 g/dL Normal 12.0 - 16.0 [facility] Comment on above: Performed By: #### 2 47578 ####[facility],[address] [place], [place] [id number] Lymph # 1.21 x10EE3/UL Normal 0.80 - 2.80 [facility] Comment on above: Performed By: #### 2 03656 ####[facility],[address] [place] [address] 20313 Lymphocytes/100 WBC (Bld) 12.5 % Low 20.0 - 45.0 [facility] Comment on above: Performed By: #### 2 50810 ####[facility],[address] [place] [address] 41405 MANUAL DIFF N/A Normal [facility] Comment on above: Performed By: #### 2 83650 ####[facility],[address] [place] [address] MCH (RBC) [Entitic mass] 29 pg Normal 27 - 33 [facility] Comment on above: Performed By: #### 2 19393 ####[facility],[address] [place] [address] MCHC 34 X10 3 Normal 32 - 36 [facility] Comment on above: Performed By: #### 2 99089 ####[facility],[address] [place], [place] [phone] MCV (RBC) [Entitic vol] 85 fL Normal 80 - 99 [facility] Comment on above: Performed By: #### 2 55542 ####[facility],[address] [place] [address] [place] # 0.57 x10EE3/UL Normal 0.20 - 1.00 [facility] Comment on above: Performed By: #### 2 30227 ####[facility],[address] [place] [address] 44106 MONOS % 5.9 % Normal 0.0 - 10.0 [facility] Comment on above: Performed By: #### 2 72646 ####[facility],[address] [place] [address] 06314 Morphology Julian (Bld) [Interp] N/A Normal [facility] Comment on above: Performed By: #### 2 29420 ####[facility],[address] [place] [address] 97037 Neut # 7.69 x10EE3/UL High 1.50 - 7.10 [facility] Comment on above: Performed By: #### 2 59267 ####[facility],[address] [place] [address] 97386 Neutrophils/100 WBC (Bld) 80.1 % High 46.0 - 76.0 [facility] Comment on above: Performed By: #### 2 08248 ####[facility],[address] [place] [address] 56994 PLATELET 234 x10EE3/UL Normal 150 - 450 [facility] Comment on above: Performed By: #### 2 62718 ####[facility],[address] [place] [address] 22750 Platelet mean volume (Bld) [Entitic vol] 7.4 fL Normal 6.6 - 10.5 [facility] Comment on above: Result Comment: AUTO MATED DIFFERENTIAL Performed By: #### 2 94555 ####[facility],[address] [place] [address] 17421 RBC 5.37 x 10EE6/UL High 4.10 - 5.30 [facility] Comment on above: Performed By: #### 2 09548 ####[facility],[address] [place] [address] 39542 WBC 9.6 x 10EE3/UL Normal 4.5 - 10.8 [facility] Comment on above: Performed By: #### 2 47834 ####[facility],[address] [place] [address] 94354 CMP with eGFRon 11-19-2024 AGE 74 years Normal [facility] Comment on above: Performed By: #### 2 73067 ####[facility],[address] [place] [address] 07129 Albumin [Mass/Vol] 4.2 g/dL Normal 3.4 - 5.0 [facility] Comment on above: Performed By: #### 2 20506 ####[facility],[address] [place] [address] 26412 Albumin/Globulin [Mass ratio] 1.0 {ratio} Normal 0.9 - 1.6 [facility] Comment on above: Performed By: #### 2 81280 ####[facility],[address] [place] [address] 38844 ALK PHOS 100 U/L Normal 46 - 116 [facility] Comment on above: Performed By: #### 2 41853 ####[facility],[address] [place] [address] 20764 ALT [Catalytic activity/Vol] 26 U/L Normal 16 - 63 [facility] Comment on above: Performed By: #### 2 32646 ####[facility],[address] [place] [address] 11123 Anion gap [Moles/Vol] 13 mmol/L Normal 10 - 20 [facility] Comment on above: Performed By: #### 2 76817 ####[facility],[address] [place] [address] 02535 AST [Catalytic activity/Vol] 17 U/L Normal 13 - 39 [facility] Comment on above: Performed By: #### 2 79723 ####[facility],[address] [place] [address] 60464 B/C RATIO 11 ratio Normal 0 - 30 [facility] Comment on above: Performed By: #### 2 97926 ####[facility],[address] [place] [address] 43212 Bilirubin [Mass/Vol] 0.6 mg/dL Normal 0.2 - 1.0 [facility] Comment on above: Performed By: #### 2 44252 ####[facility],[address] [place] [address] 27124 Calcium [Mass/Vol] 9.9 mg/dL Normal 8.5 - 10.1 [facility] Comment on above: Performed By: #### 2 65577 ####[facility],[address] [place] [address] 90563 Chloride [Moles/Vol] 100 mmol/L Normal 98 - 107 [facility] Comment on above: Performed By: #### 2 48993 ####[facility],[address] [place] [address] 47040 CMP with eGFR Normal [facility] Comment on above: Result Comment: COMP REHENSIVE METABOLIC PANEL Performed By: #### 2 08226 ####[facility],[address] [place] [address] 00542 CO2 [Moles/Vol] 29.1 mmol/L Normal 21.0 - 32.0 [facility] Comment on above: Performed By: #### 2 74199 ####[facility],[address] [place] [address] 55647 Creatinine [Mass/Vol] 1.32 mg/dL High 0.55 - 1.02 [facility] Comment on above: Performed By: #### 2 85202 ####[facility],[address] [place] [address] 07763 eGFR 39 ML/MINUTE Low 60 - 999 [facility] Comment on above: Performed By: #### 2 34768 ####[facility],[address] [place] [address] 61384 eGFR(AA) 48 ML/MINUTE Low 60 - 999 [facility] Comment on above: Result Comment: ACCO RDING TO THE NATIONAL KIDNEY DISEASE EDUCATION PROGRAM(NKDE), A NORMAL eGFRIS A VALUE GREATER THAN OR EQUAL TO 60 ML/MIN/1.73 SQ METERS.CHRONIC KIDNEY DISEASE: <60mL/MIN/1.73 SQ METERSKIDNEY FAILURE: <15mL/MIN/1.73 SQ METERSTHIS TEST SHOULD ONLY BE USED FOR PATIENTS 18 YEARS OF AGE AND OLDER. Performed By: #### 2 60443 ####[facility],[address] [place] [address] 14354 Globulin (S) [Mass/Vol] 4.1 g/dL High 1.5 - 3.8 [facility] Comment on above: Performed By: #### 2 15084 ####[facility],[address] [place] [address] 35152 Glucose [Mass/Vol] 142 mg/dL High 74 - 106 [facility] Comment on above: Performed By: #### 2 29484 ####[facility],[address] [place] [address] 40235 Potassium [Moles/Vol] 3.4 mmol/L Low 3.5 - 5.1 [facility] Comment on above: Performed By: #### 2 09031 ####[facility],[address] [place] [address] 67121 Protein [Mass/Vol] 8.3 g/dL High 6.4 - 8.2 [facility] Comment on above: Performed By: #### 2 45972 ####[facility],[address] [place] [address] 98706 Sodium [Moles/Vol] 139 mmol/L Normal 136 - 145 [facility] Comment on above: Performed By: #### 2 32877 ####[facility],[address] [place] [address] 54885 Urea nitrogen [Mass/Vol] 15 mg/dL Normal 7 - 18 [facility] Comment on above: Performed By: #### 2 69481 ####[facility],[address] [place] [address] 28612 ED MED ADMINISTRATION DETAIL on 11-19-2024 ED MED ADMINISTRATION DETAIL Normal [facility] ED NURSES CLINICAL NOTEon ED NURSES CLINICAL NOTE Normal [facility] ED ORDER SHEET (CPOE ONLY)on 11-19-2024 ED ORDER SHEET (CPOE ONLY) Normal [facility] ED PHYSICIAN CLINICAL REPORT on 11-19-2024 ED PHYSICIAN CLINICAL REPORT Normal [facility] ED SUPER BILLon 11-19-2024 ED SUPER BILL Normal [facility] ED VISIT SUMMARYon ED VISIT SUMMARY Normal [facility] ED VITALS FLOW SHEETon 11-19 ED VITALS FLOW SHEET Normal [facility] LIPASEon 11-19-2024 Lipase [Catalytic activity/Vol] 52.0 U/L Normal 15.0 - 78.0 [facility] Comment on above: Result Comment: *PLE ASE NOTE THAT RANGES FOR LIPASE HAVE CHANGED OF 04/12/23 DUE TO AN ASSAYUPDATE BY THE PARTS COORDINATOR.THE NEW ASSAY RANGE IS 6-250 U/L, WITH A REFERENCERANGE OF 16-77 U/L. Performed By: #### 2 20452 ####[facility],[address] [place] [address] URINALYSISon 11-19-2024 Bilirubin Ql (U) Negative Normal NORMAL: NEGATIVE [facility] Comment on above: Performed By: #### 2 23718 ####[facility],[address] [place] [address] Clarity (U) clear Normal NORMAL: CLEAR [facility] Comment on above: Performed By: #### 2 77037 ####[facility],[address] [place] [address] 44794 Color (U) louise Normal NORMAL: YELLOW [facility] Comment on above: Performed By: #### 2 02100 ####[facility],[address] [place] [address] 34041 Glucose Ql (U) NORM Normal NORMAL: NORMAL [facility] Comment on above: Performed By: #### 2 84193 ####[facility],[address] [place] [address] 26417 Hemoglobin Ql (U) Negative Normal NORMAL: NEGATIVE [facility] Comment on above: Performed By: #### 2 50518 ####[facility],[address] [place] [address] 78803 Ketone 15 Abnormal NORMAL: NEGATIVE [facility] Comment on above: Performed By: #### 2 70352 ####[facility],[address] [place] [address] Leukocytes Negative Normal NORMAL: NEGATIVE [facility] Comment on above: Performed By: #### 2 61034 ####[facility],[address] [place], [place] [id number] Nitrite Ql (U) Negative Normal NORMAL: NEGATIVE [facility] Comment on above: Performed By: #### 2 89887 ####[facility],[address] [place] [address] pH (U) 6.5 [pH] Normal NORMAL: 5.0-8.0 [facility] Comment on above: Performed By: #### 2 57688 ####[facility],[address] [place] [address] Protein Ql (U) 15 Abnormal NORMAL: NEGATIVE [facility] Comment on above: Performed By: #### 2 30230 ####[facility],[address] [place] [address] Sp [place] 1.015 Normal NORMAL: 1.010-1.030 [facility] Comment on above: Performed By: #### 2 68181 ####[facility],[address] [place] [address] Specimen Type R Normal [facility] Comment on above: Performed By: #### 2 60188 ####[facility],[address] [place] [address] Urinalysis dipstick W Reflex Microscopic panel (U) NOT INDICATED Normal [facility] Comment on above: Performed By: #### 2 66362 ####[facility],[address] [place] [address] Urobilinog NORM Normal NORMAL: NORMAL [facility] Comment on above: Performed By: #### 2 83139 ####[facility],[address] [place] [address] CBC + DIFFon 07-17-2025 Baso # 0.03 x10EE3/UL Normal 0.00 - 0.10 [facility] Comment on above: Performed By: #### 2 57650 ####[facility],[address] [place] [address] 81210 Basophils/100 WBC (Bld) 0.5 % Normal 0.0 - 2.0 [facility] Comment on above: Performed By: #### 2 65288 ####[facility],[address] [place] [address] 68260 CBC + DIFF Normal [facility] Comment on above: Result Comment: CBC- COMPLETE BLOOD COUNT Performed By: #### 2 74731 ####[facility],[address] [place] [address] 77903 EO # 0.13 x10EE3/UL Normal 0.00 - 0.50 [facility] Comment on above: Performed By: #### 2 30400 ####[facility],[address] [place] [address] 27257 Eosinophils/100 WBC (Bld) 1.7 % Normal 0.0 - 7.0 [facility] Comment on above: Performed By: #### 2 99740 ####[facility],[address] [place] [address] 71558 Erythrocyte distribution width (RBC) [Ratio] 13.5 % Normal 12.0 - 15.6 [facility] Comment on above: Performed By: #### 2 36182 ####[facility],[address] [place] [address] 23234 Hematocrit (Bld) [Volume fraction] 44.2 % Normal 34.0 - 46.0 [facility] Comment on above: Performed By: #### 2 12161 ####[facility],[address] [place] [address] 76461 Hemoglobin (Bld) [Mass/Vol] 15.6 g/dL Normal 12.0 - 16.0 [facility] Comment on above: Performed By: #### 2 42686 ####[facility],[address] [place] [address] 40225 Lymph # 1.02 x10EE3/UL Normal 0.80 - 2.80 [facility] Comment on above: Performed By: #### 2 55587 ####[facility],[address] [place], [place] [address] Lymphocytes/100 WBC (Bld) 13.2 % Low 20.0 - 45.0 [facility] Comment on above: Performed By: #### 2 98043 ####[facility],[address] [place], [place] [phone] MANUAL DIFF N/A Normal [facility] Comment on above: Performed By: #### 2 47856 ####[facility],[address] [place] [address] MCH (RBC) [Entitic mass] 31 pg Normal 27 - 33 [facility] Comment on above: Performed By: #### 2 16193 ####[facility],[address] [place] [address] 58481 MCHC 35 X10 3 Normal 32 - 36 [facility] Comment on above: Performed By: #### 2 33501 ####[facility],[address] [place] [address] 73224 MCV (RBC) [Entitic vol] 87 fL Normal 80 - 99 [facility] Comment on above: Performed By: #### 2 82619 ####[facility],[address] [place] [address] 87399 Merrick # 0.62 x10EE3/UL Normal 0.20 - 1.00 [facility] Comment on above: Performed By: #### 2 68095 ####[facility],[address] [place] [address] 14847 MONOS % 8.1 % Normal 0.0 - 10.0 [facility] Comment on above: Performed By: #### 2 58771 ####[facility],[address] [place] [address] 48802 Morphology Julian (Bld) [Interp] N/A Normal [facility] Comment on above: Performed By: #### 2 71752 ####[facility],[address] [place] [address] 28370 Neut # 5.94 x10EE3/UL Normal 1.50 - 7.10 [facility] Comment on above: Performed By: #### 2 67073 ####[facility],[address] [place] [address] 91961 Neutrophils/100 WBC (Bld) 76.6 % High 46.0 - 76.0 [facility] Comment on above: Performed By: #### 2 89010 ####[facility],[address] [place] [address] 58734 PLATELET 257 x10EE3/UL Normal 150 - 450 [facility] Comment on above: Performed By: #### 2 88717 ####[facility],[address] [place] [address] 49228 Platelet mean volume (Bld) [Entitic vol] 8.2 fL Normal 6.6 - 10.5 [facility] Comment on above: Result Comment: AUTO MATED DIFFERENTIAL Performed By: #### 2 83983 ####[facility],[address] [place] [address] 33479 RBC 5.10 x 10EE6/UL Normal 4.10 - 5.30 [facility] Comment on above: Performed By: #### 2 11341 ####[facility],[address] [place] [address] 45986 WBC 7.8 x 10EE3/UL Normal 4.5 - 10.8 [facility] Comment on above: Performed By: #### 2 56209 ####[facility],[address] [place] [address] 56047 CMP with eGFRon 10-29-2024 AGE 74 years Normal [facility] Comment on above: Performed By: #### 2 41819 ####[facility],[address] [place] [address] 72080 Albumin [Mass/Vol] 4.2 g/dL Normal 3.4 - 5.0 [facility] Comment on above: Performed By: #### 2 73000 ####[facility],[address] [place] [address] 48093 Albumin/Globulin [Mass ratio] 1.0 {ratio} Normal 0.9 - 1.6 [facility] Comment on above: Performed By: #### 2 61921 ####[facility],[address] [place] [address] 94083 ALK PHOS 102 U/L Normal 46 - 116 [facility] Comment on above: Performed By: #### 2 31590 ####[facility],[address] [place] [address] 75919 ALT [Catalytic activity/Vol] 31 U/L Normal 16 - 63 [facility] Comment on above: Performed By: #### 2 48897 ####[facility],[address] [place] [address] 56401 Anion gap [Moles/Vol] 14 mmol/L Normal 10 - 20 [facility] Comment on above: Performed By: #### 2 77522 ####[facility],[address] [place] [address] 77521 AST [Catalytic activity/Vol] 32 U/L Normal 13 - 39 [facility] Comment on above: Performed By: #### 2 45261 ####[facility],[address] [place] [address] 21580 B/C RATIO 12 ratio Normal 0 - 30 [facility] Comment on above: Performed By: #### 2 42104 ####[facility],[address] [place] [address] 13417 Bilirubin [Mass/Vol] 0.7 mg/dL Normal 0.2 - 1.0 [facility] Comment on above: Performed By: #### 2 10196 ####[facility],[address] [place] [address] 90975 Calcium [Mass/Vol] 9.6 mg/dL Normal 8.5 - 10.1 [facility] Comment on above: Performed By: #### 2 35990 ####[facility],[address] [place] [address] 14389 Chloride [Moles/Vol] 101 mmol/L Normal 98 - 107 [facility] Comment on above: Performed By: #### 2 99787 ####[facility],[address] [place] [address] 56958 CMP with eGFR Normal [facility] Comment on above: Result Comment: COMP REHENSIVE METABOLIC PANEL Performed By: #### 2 99027 ####[facility],[address] [place] [address] 58404 CO2 [Moles/Vol] 28.4 mmol/L Normal 21.0 - 32.0 [facility] Comment on above: Performed By: #### 2 86012 ####[facility],[address] [place] [address] 44264 Creatinine [Mass/Vol] 1.20 mg/dL High 0.55 - 1.02 [facility] Comment on above: Performed By: #### 2 52946 ####[facility],[address] [place] [address] 02811 eGFR 44 ML/MINUTE Low 60 - 999 [facility] Comment on above: Performed By: #### 2 32454 ####[facility],[address] [place] [address] 26684 eGFR(AA) 53 ML/MINUTE Low 60 - 999 [facility] Comment on above: Result Comment: ACCO RDING TO THE NATIONAL KIDNEY DISEASE EDUCATION PROGRAM(NKDE), A NORMAL eGFRIS A VALUE GREATER THAN OR EQUAL TO 60 ML/MIN/1.73 SQ METERS.CHRONIC KIDNEY DISEASE: <60mL/MIN/1.73 SQ METERSKIDNEY FAILURE: <15mL/MIN/1.73 SQ METERSTHIS TEST SHOULD ONLY BE USED FOR PATIENTS 18 YEARS OF AGE AND OLDER. Performed By: #### 2 60098 ####[facility],[address] [place] [address] 10738 Globulin (S) [Mass/Vol] 4.4 g/dL High 1.5 - 3.8 [facility] Comment on above: Performed By: #### 2 90047 ####[facility],[address] [place] [address] 50650 Glucose [Mass/Vol] 125 mg/dL High 74 - 106 [facility] Comment on above: Performed By: #### 2 06808 ####[facility],[address] [place] [address] 47993 Potassium [Moles/Vol] 4.5 mmol/L Normal 3.5 - 5.1 [facility] Comment on above: Performed By: #### 2 67083 ####[facility],[address] [place] [address] 86535 Protein [Mass/Vol] 8.6 g/dL High 6.4 - 8.2 [facility] Comment on above: Performed By: #### 2 96911 ####[facility],[address] [place] [address] 99972 Sodium [Moles/Vol] 139 mmol/L Normal 136 - 145 [facility] Comment on above: Performed By: #### 2 51285 ####[facility],[address] [place] [address] 36616 Urea nitrogen [Mass/Vol] 14 mg/dL Normal 7 - 18 [facility] Comment on above: Performed By: #### 2 39583 ####[facility],[address] [place] [address] 36098 ED MED ADMINISTRATION DETAIL on 10-29-2024 ED MED ADMINISTRATION DETAIL Normal [facility] ED NURSES CLINICAL NOTEon ED NURSES CLINICAL NOTE Normal [facility] ED ORDER SHEET (CPOE ONLY)on 10-29-2024 ED ORDER SHEET (CPOE ONLY) Normal [facility] ED PHYSICIAN CLINICAL REPORT on 10-29-2024 ED PHYSICIAN CLINICAL REPORT Normal [facility] ED SUPER BILLon 10-29-2024 ED SUPER BILL Normal [facility] ED VISIT SUMMARYon ED VISIT SUMMARY Normal [facility] ED VITALS FLOW SHEETon 10-29 ED VITALS FLOW SHEET Normal [facility] LACTATEon 10-29-2024 Lactate [Moles/Vol] 1.0 mmol/L Normal 0.4 - 2.0 [facility] Comment on above: Performed By: #### 2 67407 ####[facility],[address] [place] [address] 51461 CBC + DIFFon 10-26-2024 Baso # 0.03 x10EE3/UL Normal 0.00 - 0.10 [facility] Comment on above: Performed By: #### 2 51779 ####[facility],[address] [place] [address] 10684 Basophils/100 WBC (Bld) 0.3 % Normal 0.0 - 2.0 [facility] Comment on above: Performed By: #### 2 07026 ####[facility],[address] [place] [address] 99651 CBC + DIFF Normal [facility] Comment on above: Result Comment: CBC- COMPLETE BLOOD COUNT Performed By: #### 2 62396 ####[facility],[address] [place] [address] 80959 EO # 0.06 x10EE3/UL Normal 0.00 - 0.50 [facility] Comment on above: Performed By: #### 2 36119 ####[facility],[address] [place] [address] 14358 Eosinophils/100 WBC (Bld) 0.7 % Normal 0.0 - 7.0 [facility] Comment on above: Performed By: #### 2 22396 ####[facility],[address] [place] [address] Erythrocyte distribution width (RBC) [Ratio] 13.6 % Normal 12.0 - 15.6 [facility] Comment on above: Performed By: #### 2 87479 ####[facility],[address] [place] [address] Hematocrit (Bld) [Volume fraction] 47.6 % High 34.0 - 46.0 [facility] Comment on above: Performed By: #### 2 65864 ####[facility],[address] [place] [address] Hemoglobin (Bld) [Mass/Vol] 16.4 g/dL High 12.0 - 16.0 [facility] Comment on above: Performed By: #### 2 48760 ####[facility],[address] [place] [address] Lymph # 0.92 x10EE3/UL Normal 0.80 - 2.80 [facility] Comment on above: Performed By: #### 2 23526 ####[facility],[address] [place] [address] Lymphocytes/100 WBC (Bld) 10.8 % Low 20.0 - 45.0 [facility] Comment on above: Performed By: #### 2 45820 ####[facility],[address] [place], [place] [phone] MANUAL DIFF N/A Normal [facility] Comment on above: Performed By: #### 2 79032 ####[place] [id number] MCH (RBC) [Entitic mass] 29 pg Normal 27 - 33 [facility] Comment on above: Performed By: #### 2 35040 ####[place] [address] MCHC 34 X10 3 Normal 32 - 36 [facility] Comment on above: Performed By: #### 2 60362 ####[facility],[address] [place] [address] 26975 MCV (RBC) [Entitic vol] 85 fL Normal 80 - 99 [facility] Comment on above: Performed By: #### 2 81365 ####[facility],[address] [place] [address] [place]rick # 0.62 x10EE3/UL Normal 0.20 - 1.00 [facility] Comment on above: Performed By: #### 2 60419 ####[facility],[address] [place] [address] MONOS % 7.2 % Normal 0.0 - 10.0 [facility] Comment on above: Performed By: #### 2 30207 ####[facility],[address] [place], [place] [phone] Morphology Julian (Bld) [Interp] N/A Normal [facility] Comment on above: Performed By: #### 2 87157 ####[facility],[address] [place] [address] Neut # 6.91 x10EE3/UL Normal 1.50 - 7.10 [facility] Comment on above: Performed By: #### 2 83404 ####[facility],[address] [place], [place] [phone] Neutrophils/100 WBC (Bld) 81.1 % High 46.0 - 76.0 [facility] Comment on above: Performed By: #### 2 93306 ####[facility],[address] [place] [address] 01510 PLATELET 265 x10EE3/UL Normal 150 - 450 [facility] Comment on above: Performed By: #### 2 75474 ####[facility],[address] [place] [address] 72274 Platelet mean volume (Bld) [Entitic vol] 7.5 fL Normal 6.6 - 10.5 [facility] Comment on above: Result Comment: AUTO MATED DIFFERENTIAL Performed By: #### 2 29884 ####[facility],[address] [place] [address] 11838 RBC 5.61 x 10EE6/UL High 4.10 - 5.30 [facility] Comment on above: Performed By: #### 2 24199 ####[facility],[address] [place] [address] 66974 WBC 8.5 x 10EE3/UL Normal 4.5 - 10.8 [facility] Comment on above: Performed By: #### 2 94381 ####[facility],[address] [place] [address] 77772 CMP with eGFRon 10-26-2024 AGE 74 years Normal [facility] Comment on above: Performed By: #### 2 50883 ####[facility],[address] [place] [address] 41608 Albumin [Mass/Vol] 4.5 g/dL Normal 3.4 - 5.0 [facility] Comment on above: Performed By: #### 2 65740 ####[facility],[address] [place] [address] 30390 Albumin/Globulin [Mass ratio] 1.2 {ratio} Normal 0.9 - 1.6 [facility] Comment on above: Performed By: #### 2 72185 ####[facility],[address] [place] [address] 18393 ALK PHOS 110 U/L Normal 46 - 116 [facility] Comment on above: Performed By: #### 2 17103 ####[facility],[address] [place] [address] 64676 ALT [Catalytic activity/Vol] 30 U/L Normal 16 - 63 [facility] Comment on above: Performed By: #### 2 86638 ####[facility],[address] [place] [address] 13659 Anion gap [Moles/Vol] 18 mmol/L Normal 10 - 20 [facility] Comment on above: Performed By: #### 2 60261 ####[facility],[address] [place] [address] 54524 AST [Catalytic activity/Vol] 21 U/L Normal 13 - 39 [facility] Comment on above: Performed By: #### 2 05693 ####[facility],[address] [place] [address] 37172 B/C RATIO 13 ratio Normal 0 - 30 [facility] Comment on above: Performed By: #### 2 51512 ####[facility] [facility],[address] [place] [address] 83033 Bilirubin [Mass/Vol] 0.4 mg/dL Normal 0.2 - 1.0 [facility] Comment on above: Performed By: #### 2 76222 ####[facility],[address] [place] [address] 66322 Calcium [Mass/Vol] 9.9 mg/dL Normal 8.5 - 10.1 [facility] Comment on above: Performed By: #### 2 45556 ####[facility],[address] [place] [address] 28072 Chloride [Moles/Vol] 99 mmol/L Normal 98 - 107 [facility] Comment on above: Performed By: #### 2 62150 ####[facility],[address] [place] [address] 09298 CMP with eGFR Normal [facility] Comment on above: Result Comment: COMP REHENSIVE METABOLIC PANEL Performed By: #### 2 64842 ####[facility],[address] [place] [address] 13868 CO2 [Moles/Vol] 26.3 mmol/L Normal 21.0 - 32.0 [facility] Comment on above: Performed By: #### 2 01971 ####[facility],[address] [place] [address] 19791 Creatinine [Mass/Vol] 1.20 mg/dL High 0.55 - 1.02 [facility] Comment on above: Performed By: #### 2 32878 ####[facility],[address] [place] [address] 91544 eGFR 44 ML/MINUTE Low 60 - 999 [facility] Comment on above: Performed By: #### 2 66780 ####[facility],[address] [place] [address] 94577 eGFR(AA) 53 ML/MINUTE Low 60 - 999 [facility] Comment on above: Result Comment: ACCO RDING TO THE NATIONAL KIDNEY DISEASE EDUCATION PROGRAM(NKDE), A NORMAL eGFRIS A VALUE GREATER THAN OR EQUAL TO 60 ML/MIN/1.73 SQ METERS.CHRONIC KIDNEY DISEASE: <60mL/MIN/1.73 SQ METERSKIDNEY FAILURE: <15mL/MIN/1.73 SQ METERSTHIS TEST SHOULD ONLY BE USED FOR PATIENTS 18 YEARS OF AGE AND OLDER. Performed By: #### 2 48572 ####[facility],[address] [place] [address] 35352 Globulin (S) [Mass/Vol] 3.9 g/dL High 1.5 - 3.8 [facility] Comment on above: Performed By: #### 2 21571 ####[facility],[address] [place] [address] 82880 Glucose [Mass/Vol] 118 mg/dL High 74 - 106 [facility] Comment on above: Performed By: #### 2 71531 ####[facility],[address] [place] [address] 93789 Potassium [Moles/Vol] 3.9 mmol/L Normal 3.5 - 5.1 [facility] Comment on above: Performed By: #### 2 18436 ####[facility],[address] [place] [address] 63179 Protein [Mass/Vol] 8.4 g/dL High 6.4 - 8.2 [facility] Comment on above: Performed By: #### 2 66768 ####[facility],[address] [place] [address] 62089 Sodium [Moles/Vol] 139 mmol/L Normal 136 - 145 [facility] Comment on above: Performed By: #### 2 15085 ####[facility],[address] [place] [address] 85281 Urea nitrogen [Mass/Vol] 15 mg/dL Normal 7 - 18 [facility] Comment on above: Performed By: #### 2 44696 ####[facility],[address] [place], [place] [id number] ED MED ADMINISTRATION DETAIL on 10-26-2024 ED MED ADMINISTRATION DETAIL Normal [facility] ED NURSES CLINICAL NOTEon ED NURSES CLINICAL NOTE Normal [facility] ED ORDER SHEET (CPOE ONLY)on 10-26-2024 ED ORDER SHEET (CPOE ONLY) Normal [facility] ED PHYSICIAN CLINICAL REPORT on 10-26-2024 ED PHYSICIAN CLINICAL REPORT Normal [facility] ED SUPER BILLon 10-26-2024 ED SUPER BILL Normal [facility] ED VISIT SUMMARYon ED VISIT SUMMARY Normal [facility] ED VITALS FLOW SHEETon 10-26 ED VITALS FLOW SHEET Normal [facility] MR/BMS.IMBon 10-19-2024 MR/BMS.IMB [facility] [address] [place] [address] OFFICE VISIT Date of Service: 10/19/24 MR#: [id number] Acct: [id number] Name: BONY HUANG Rep #: [id number] : 1950 Provider: Dr. Cheikh negrete MD Age/Sex: 74/F Location: [facility] Status: Signed Intake Vital Signs 02/24/24 [...] Discharge FU Chief Complaint: [facility] Discharge FU [employer] Required: No Accompanied by: Is patient in [...] finally been able to get through to [facility] neuro gastroenterology and motility disorder clinic. Been [...] dehydration episodes. There have been 3 nearly swzs-md-kozg episodes recently. Prior to that, she went several months without any issues. Previously she had been seen at [facility]. A number of years ago, I referred [...] had extensive workup on 1 occasion at [facility] and after that nothing further has been done aside from trying to treat this medically for presumed gastroparesis. (more content not included)... Normal [facility] CBC + DIFF DAILYon 5 Baso # 0.03 x10EE3/UL Normal 0.00 - 0.10 [facility] Comment on above: Performed By: #### 2 24758 ####[facility],[address] [place] [address] 71826 Basophils/100 WBC (Bld) 0.5 % Normal 0.0 - 2.0 [facility] Comment on above: Performed By: #### 2 47238 ####[facility],[address] [place] [address] 55632 CBC + DIFF DAILY Normal [facility] Comment on above: Result Comment: CBC- COMPLETE BLOOD COUNT Performed By: #### 2 32720 ####[facility],[address] [place] [address] 94658 EO # 0.14 x10EE3/UL Normal 0.00 - 0.50 [facility] Comment on above: Performed By: #### 2 02433 ####[facility],[address] [place] [address] 65671 Eosinophils/100 WBC (Bld) 2.3 % Normal 0.0 - 7.0 [facility] Comment on above: Performed By: #### 2 74252 ####[facility],[address] [place] [address] 62908 Erythrocyte distribution width (RBC) [Ratio] 13.4 % Normal 12.0 - 15.6 [facility] Comment on above: Performed By: #### 2 96072 ####[facility],[address] [place] [address] 22409 Hematocrit (Bld) [Volume fraction] 35.3 % Normal 34.0 - 46.0 [facility] Comment on above: Performed By: #### 2 86899 ####[facility],[address] [place] [address] Hemoglobin (Bld) [Mass/Vol] 12.2 g/dL Normal 12.0 - 16.0 [facility] Comment on above: Performed By: #### 2 38690 ####[facility],[address] [place] [address] Lymph # 1.25 x10EE3/UL Normal 0.80 - 2.80 [facility] Comment on above: Performed By: #### 2 98956 ####[facility],[address] [place] [address] Lymphocytes/100 WBC (Bld) 21.3 % Normal 20.0 - 45.0 [facility] Comment on above: Performed By: #### 2 35527 ####[facility],[address] [place] [address] MANUAL DIFF N/A Normal [facility] Comment on above: Performed By: #### 2 82465 ####[facility],[address] [place] [address] MCH (RBC) [Entitic mass] 30 pg Normal 27 - 33 [facility] Comment on above: Performed By: #### 2 62409 ####[facility],[address] [place] [address] MCHC 35 X10 3 Normal 32 - 36 [facility] Comment on above: Performed By: #### 2 25227 ####[facility],[address] [place] [address] MCV (RBC) [Entitic vol] 87 fL Normal 80 - 99 [facility] Comment on above: Performed By: #### 2 78421 ####[facility],[address] [place] [address] Merrick # 0.52 x10EE3/UL Normal 0.20 - 1.00 [facility] Comment on above: Performed By: #### 2 88542 ####[facility],[address] [place] [address] 11871 MONOS % 8.9 % Normal 0.0 - 10.0 [facility] Comment on above: Performed By: #### 2 79381 ####[facility],[address] [place] [address] 29447 Morphology Julian (Bld) [Interp] N/A Normal [facility] Comment on above: Performed By: #### 2 38777 ####[facility],[address] [place] [address] Neut # 3.92 x10EE3/UL Normal 1.50 - 7.10 [facility] Comment on above: Performed By: #### 2 73089 ####[facility],[address] [place] [address] 83533 Neutrophils/100 WBC (Bld) 67.1 % Normal 46.0 - 76.0 [facility] Comment on above: Performed By: #### 2 81554 ####[facility],[address] [place] [address] 77431 PLATELET 223 x10EE3/UL Normal 150 - 450 [facility] Comment on above: Performed By: #### 2 00913 ####[facility],[address] [place] [address] 05414 Platelet mean volume (Bld) [Entitic vol] 8.2 fL Normal 6.6 - 10.5 [facility] Comment on above: Result Comment: AUTO MATED DIFFERENTIAL Performed By: #### 2 24400 ####[facility],[address] [place] [address] 09104 RBC 4.06 x 10EE6/UL Low 4.10 - 5.30 [facility] Comment on above: Performed By: #### 2 65157 ####[facility],[address] [place] [address] 78617 WBC 5.9 x 10EE3/UL Normal 4.5 - 10.8 [facility] Comment on above: Performed By: #### 2 03525 ####[facility],[address] [place] [address] 02404 CMP with eGFR - DAILYon 07-0 AGE 74 years Normal [facility] Comment on above: Performed By: #### 2 46332 ####[facility],[address] [place] [address] Albumin [Mass/Vol] 2.8 g/dL Low 3.4 - 5.0 [facility] Comment on above: Performed By: #### 2 64142 ####[facility],[address] [place] [address] Albumin/Globulin [Mass ratio] 0.9 {ratio} Normal 0.9 - 1.6 [facility] Comment on above: Performed By: #### 2 51444 ####[facility],[address] [place] [address] 30737 ALK PHOS 72 U/L Normal 46 - 116 [facility] Comment on above: Performed By: #### 2 68522 ####[facility],[address] [place] [address] 96754 ALT [Catalytic activity/Vol] 17 U/L Normal 16 - 63 [facility] Comment on above: Performed By: #### 2 41452 ####[facility],[address] [place] [address] 72240 Anion gap [Moles/Vol] 12 mmol/L Normal 10 - 20 [facility] Comment on above: Performed By: #### 2 71566 ####[facility],[address] [place] [address] 97452 AST [Catalytic activity/Vol] 12 U/L Low 13 - 39 [facility] Comment on above: Performed By: #### 2 20605 ####[facility],[address] [place] [address] 22617 B/C RATIO 11 ratio Normal 0 - 30 [facility] Comment on above: Performed By: #### 2 81370 ####[facility],[address] [place], [place] [address] Bilirubin [Mass/Vol] 0.5 mg/dL Normal 0.2 - 1.0 [facility] Comment on above: Performed By: #### 2 81472 ####[facility],[address] [place] [address] Calcium [Mass/Vol] 8.1 mg/dL Low 8.5 - 10.1 [facility] Comment on above: Performed By: #### 2 54522 ####[facility],[address] [place] [address] Chloride [Moles/Vol] 104 mmol/L Normal 98 - 107 [facility] Comment on above: Performed By: #### 2 76952 ####[facility],[address] [place] [address] CMP with eGFR - DAILY Normal [facility] Comment on above: Result Comment: COMP REHENSIVE METABOLIC PANEL Performed By: #### 2 27947 ####[facility],[address] [place] [address] CO2 [Moles/Vol] 25.6 mmol/L Normal 21.0 - 32.0 [facility] Comment on above: Performed By: #### 2 71512 ####[facility],[address] [place], [place] [address] Creatinine [Mass/Vol] 1.11 mg/dL High 0.55 - 1.02 [facility] Comment on above: Performed By: #### 2 90076 ####[facility],[address] [place] [address] eGFR 48 ML/MINUTE Low 60 - 999 [facility] Comment on above: Performed By: #### 2 52383 ####[facility],[address] [place] [address] 34106 eGFR(AA) 58 ML/MINUTE Low 60 - 999 [facility] Comment on above: Result Comment: ACCO RDING TO THE NATIONAL KIDNEY DISEASE EDUCATION PROGRAM(NKDE), A NORMAL eGFRIS A VALUE GREATER THAN OR EQUAL TO 60 ML/MIN/1.73 SQ METERS.CHRONIC KIDNEY DISEASE: <60mL/MIN/1.73 SQ METERSKIDNEY FAILURE: <15mL/MIN/1.73 SQ METERS Performed By: #### 2 11761 ####[facility],[address] [place] [address] 68597 Globulin (S) [Mass/Vol] 3.2 g/dL Normal 1.5 - 3.8 [facility] Comment on above: Performed By: #### 2 24638 ####[facility],[address] [place] [address] 54620 Glucose [Mass/Vol] 93 mg/dL Normal 74 - 106 [facility] Comment on above: Performed By: #### 2 65606 ####[facility],[address] [place] [address] 86600 Potassium [Moles/Vol] 3.8 mmol/L Normal 3.5 - 5.1 [facility] Comment on above: Performed By: #### 2 32332 ####[facility],[address] [place] [address] 34815 Protein [Mass/Vol] 6.0 g/dL Low 6.4 - 8.2 [facility] Comment on above: Performed By: #### 2 15910 ####[facility],[address] [place] [address] 10010 Sodium [Moles/Vol] 138 mmol/L Normal 136 - 145 [facility] Comment on above: Performed By: #### 2 60380 ####[facility],[address] [place] [address] 22975 Urea nitrogen [Mass/Vol] 12 mg/dL Normal 7 - 18 [facility] Comment on above: Performed By: #### 2 49807 ####[place] [address],[place] [address] BMP with eGFRon 10-12-2024 AGE 74 years Normal [facility] Comment on above: Performed By: #### 2 26962 ####[facility],[address] [place] [address] 61596 Anion gap [Moles/Vol] 18 mmol/L Normal 10 - 20 [facility] Comment on above: Performed By: #### 2 11677 ####[facility],[address] [place] [address] 44970 BMP with eGFR Normal [facility] Comment on above: Result Comment: BASI C METABOLIC PANEL Performed By: #### 2 22436 ####[facility],[address] [place] [address] 47934 Calcium [Mass/Vol] 9.9 mg/dL Normal 8.5 - 10.1 [facility] Comment on above: Performed By: #### 2 26751 ####[facility],[address] [place] [address] 48891 Chloride [Moles/Vol] 96 mmol/L Low 98 - 107 [facility] Comment on above: Performed By: #### 2 85133 ####[facility],[address] [place] [address] 27979 CO2 [Moles/Vol] 26.4 mmol/L Normal 21.0 - 32.0 [facility] Comment on above: Performed By: #### 2 57635 ####[facility],[address] [place] [address] 10289 Creatinine [Mass/Vol] 2.53 mg/dL High 0.55 - 1.02 [facility] Comment on above: Performed By: #### 2 72204 ####[facility],[address] [place] [address] 13665 eGFR 19 ML/MINUTE Low 60 - 999 [facility] Comment on above: Performed By: #### 2 21835 ####[facility],[address] [place] [address] 16805 eGFR(AA) 23 ML/MINUTE Low 60 - 999 [facility] Comment on above: Result Comment: ACCO RDING TO THE NATIONAL KIDNEY DISEASE EDUCATION PROGRAM(NKDE), A NORMAL eGFRIS A VALUE GREATER THAN OR EQUAL TO 60 ML/MIN/1.73 SQ METERS.CHRONIC KIDNEY DISEASE: <60mL/MIN/1.73 SQ METERSKIDNEY FAILURE: <15mL/MIN/1.73 SQ METERSTHIS TEST SHOULD ONLY BE USED FOR PATIENTS 18 YEARS OF AGE AND OLDER. Performed By: #### 2 33000 ####[facility],[address] [place] [address] 45763 Glucose [Mass/Vol] 172 mg/dL High 74 - 106 [facility] Comment on above: Performed By: #### 2 26557 ####[facility],[address] [place] [address] 93853 Potassium [Moles/Vol] 3.6 mmol/L Normal 3.5 - 5.1 [facility] Comment on above: Performed By: #### 2 26891 ####[facility],[address] [place] [address] 16009 Sodium [Moles/Vol] 137 mmol/L Normal 136 - 145 [facility] Comment on above: Performed By: #### 2 49771 ####[facility],[address] [place] [address] 64788 Urea nitrogen [Mass/Vol] 22 mg/dL High 7 - 18 [facility] Comment on above: Performed By: #### 2 40430 ####[facility],[address] [place] [address] 60071 Lynette 10-12-2024 LISY Telephone ([facility]) BONY HUANG ([id number]) 1950 F Date Time Provider Department 10/12/24 BRENT CANTU During your visit today, we recorded the following information about you: Joann Orourke 10/12/2024 10:00 AM Signed calling requesting a follow up for his with Dr. Cantu His phone is [phone] Torsten Alejandro 10/12/2024 11:45 AM Signed Pt scheduled [...] 8 hours as needed for nausea/vomiting. - [place]-3 Fatty Acids 500 mg cap Take 500 [...] Status:Closed by TORSTEN ALEJANDRO on 10/12/24 Normal [facility] CT ABDOMEN/PELVIS WOon 10-12 CT ABDOMEN/PELVIS WO Normal [facility] ED MED ADMINISTRATION DETAIL on 10-12-2024 ED MED ADMINISTRATION DETAIL Normal [facility] ED MED ADMINISTRATION DETAIL Normal [facility] ED NURSES CLINICAL NOTEon ED NURSES CLINICAL NOTE Normal [facility] ED NURSES CLINICAL NOTE Normal [facility] ED ORDER SHEET (CPOE ONLY)on 10-12-2024 ED ORDER SHEET (CPOE ONLY) Normal [facility] ED ORDER SHEET (CPOE ONLY) Normal [facility] ED PHYSICIAN CLINICAL REPORT on 10-12-2024 ED PHYSICIAN CLINICAL REPORT Normal [facility] ED PHYSICIAN CLINICAL REPORT Normal [facility] ED SUPER BILLon 10-12-2024 ED SUPER BILL Normal [facility] ED SUPER BILL Normal [facility] ED VISIT SUMMARYon ED VISIT SUMMARY Normal [facility] ED VISIT SUMMARY Normal [facility] ED VITALS FLOW SHEETon 10-12 ED VITALS FLOW SHEET Normal [facility] ED VITALS FLOW SHEET Normal [facility] URINALYSISon 10-12-2024 Amorphous NONE Normal [facility] Comment on above: Performed By: #### 2 28501 ####[facility],[address] [place] [address] Bacteria 3+ Normal [facility] Comment on above: Performed By: #### 2 16223 ####[facility],[address] [place] [address] Bilirubin Ql (U) Negative Normal NORMAL: NEGATIVE [facility] Comment on above: Performed By: #### 2 97817 ####[facility],[address] [place] [address] Calcium Ox 2+ Normal NORMAL: NONE [facility] Comment on above: Performed By: #### 2 24653 ####[facility],[address] [place] [address] Casts SEE BELOW Normal [facility] Comment on above: Performed By: #### 2 11630 ####[facility],[address] [place] [address] Clarity (U) clear Normal NORMAL: CLEAR [facility] Comment on above: Performed By: #### 2 72728 ####[facility],[address] [place], [place] [id number] Color (U) brown Normal NORMAL: YELLOW [facility] Comment on above: Performed By: #### 2 75061 ####[facility],[address] [place] [address],[place] [facility] 20974 Crystals LM Nom (Urine sed) SEE BELOW Normal [facility] Comment on above: Performed By: #### 2 77566 ####[facility],[address] [place] [address],[place] [facility] 54819 Epi Cells OCC Normal [facility] Comment on above: Performed By: #### 2 23155 ####[facility],[address] [place] [address],[place] [facility] 64729 Glucose Ql (U) NORM Normal NORMAL: NORMAL [facility] Comment on above: Performed By: #### 2 63449 ####[facility],[address] [place] [address] 94596 Hemoglobin Ql (U) Negative Normal NORMAL: NEGATIVE [facility] Comment on above: Performed By: #### 2 24928 ####[facility],[address] [place] [address] 55720 Hyaline 16-25 Normal NORMAL: NONE [facility] Comment on above: Performed By: #### 2 94492 ####[facility],[address] [place] [address] 76686 Ketone 15 Abnormal NORMAL: NEGATIVE [facility] Comment on above: Performed By: #### 2 27384 ####[facility],[address] [place] [address] 05820 Leukocytes 25 Abnormal NORMAL: NEGATIVE [facility] Comment on above: Performed By: #### 2 14498 ####[facility],[address] [place] [address] 43637 Mucous 3+ Normal [facility] Comment on above: Performed By: #### 2 57643 ####[facility],[address] [place] [address] 51518 Nitrite Ql (U) Negative Normal NORMAL: NEGATIVE [facility] Comment on above: Performed By: #### 2 01785 ####[facility],[address] [place] [address] pH (U) 5 [pH] Normal NORMAL: 5.0-8.0 [facility] Comment on above: Performed By: #### 2 80799 ####[facility],[address] [place] [address] Protein Ql (U) 30 Abnormal NORMAL: NEGATIVE [facility] Comment on above: Performed By: #### 2 87619 ####[facility],[address] [place] [address] Rbc NONE Normal 0-3/hpf [facility] Comment on above: Performed By: #### 2 20863 ####[facility],[address] [place] [address] Sp [place] 1.025 Normal NORMAL: 1.010-1.030 [facility] Comment on above: Performed By: #### 2 97579 ####[facility],[address] [place] [address] Specimen Type Void Normal [facility] Comment on above: Performed By: #### 2 26279 ####[facility],[address] [place] [address] Urinalysis dipstick W Reflex Microscopic panel (U) SEE BELOW Normal [facility] Comment on above: Result Comment: MICR OSCOPIC Performed By: #### 2 87600 ####[facility],[address] [place] [address] Urobilinog 1 Abnormal NORMAL: NORMAL [facility] Comment on above: Performed By: #### 2 69391 ####[facility],[address] [place] [address] Wbc 1-5 Normal 0-5/hpf [facility] Comment on above: Performed By: #### 2 14197 ####[facility],[address] [place] [address] Yeast NONE Normal [facility] Comment on above: Performed By: #### 2 41663 ####[facility],[address] [place] [address] 92336 BMP with eGFRon 10-11-2024 AGE 74 years Normal [facility] Comment on above: Performed By: #### 2 22754 ####[facility],[address] [place] [address] 49767 Anion gap [Moles/Vol] 16 mmol/L Normal 10 - 20 [facility] Comment on above: Performed By: #### 2 73790 ####[facility],[address] [place] [address] 16342 BMP with eGFR Normal [facility] Comment on above: Result Comment: BASI C METABOLIC PANEL Performed By: #### 2 01557 ####[facility],[address] [place] [address] 77919 Calcium [Mass/Vol] 10.1 mg/dL Normal 8.5 - 10.1 [facility] Comment on above: Performed By: #### 2 05302 ####[facility],[address] [place] [address] 86140 Chloride [Moles/Vol] 95 mmol/L Low 98 - 107 [facility] [facility] Comment on above: Performed By: #### 2 89350 ####[facility],[address] [place] [address] 26914 CO2 [Moles/Vol] 26.8 mmol/L Normal 21.0 - 32.0 [facility] Comment on above: Performed By: #### 2 83127 ####[facility],[address] [place] [address] 55693 Creatinine [Mass/Vol] 1.50 mg/dL High 0.55 - 1.02 [facility] Comment on above: Performed By: #### 2 87530 ####[facility],[address] [place] [address] 52886 eGFR 34 ML/MINUTE Low 60 - 999 [facility] Comment on above: Performed By: #### 2 56880 ####[facility],[address] [place] [address] 90034 eGFR(AA) 41 ML/MINUTE Low 60 - 999 [facility] Comment on above: Result Comment: ACCO RDING TO THE NATIONAL KIDNEY DISEASE EDUCATION PROGRAM(NKDE), A NORMAL eGFRIS A VALUE GREATER THAN OR EQUAL TO 60 ML/MIN/1.73 SQ METERS.CHRONIC KIDNEY DISEASE: <60mL/MIN/1.73 SQ METERSKIDNEY FAILURE: <15mL/MIN/1.73 SQ METERSTHIS TEST SHOULD ONLY BE USED FOR PATIENTS 18 YEARS OF AGE AND OLDER. Performed By: #### 2 20500 ####[address] [address] Glucose [Mass/Vol] 119 mg/dL High 74 - 106 [facility] Comment on above: Performed By: #### 2 18012 ####[address] [address] Potassium [Moles/Vol] 3.5 mmol/L Normal 3.5 - 5.1 [facility] Comment on above: Performed By: #### 2 05551 ####[address] [address] Sodium [Moles/Vol] 134 mmol/L Low 136 - 145 [facility] Comment on above: Performed By: #### 2 11794 ####[address] [address] Urea nitrogen [Mass/Vol] 15 mg/dL Normal 7 - 18 [facility] Comment on above: Performed By: #### 2 20568 ####[address] [address] CBC + DIFFon 10-11-2024 Baso # 0.02 x10EE3/UL Normal 0.00 - 0.10 [facility] Comment on above: Performed By: #### 2 93583 ####[facility] [place] [address] 47249 Basophils/100 WBC (Bld) 0.2 % Normal 0.0 - 2.0 [facility] Comment on above: Performed By: #### 2 59873 ####[facility],[address] [place] [address] CBC + DIFF Normal [facility] Comment on above: Result Comment: CBC- COMPLETE BLOOD COUNT Performed By: #### 2 96450 ####[facility],[address] [place] [address] EO # 0.12 x10EE3/UL Normal 0.00 - 0.50 [facility] Comment on above: Performed By: #### 2 39225 ####[facility],[address] [place], [place] [id number] Eosinophils/100 WBC (Bld) 1.4 % Normal 0.0 - 7.0 [facility] Comment on above: Performed By: #### 2 47461 ####[facility],[address] [place] [address] Erythrocyte distribution width (RBC) [Ratio] 13.4 % Normal 12.0 - 15.6 [facility] Comment on above: Performed By: #### 2 45952 ####[facility],[address] [place] [address] Hematocrit (Bld) [Volume fraction] 48.2 % High 34.0 - 46.0 [facility] Comment on above: Performed By: #### 2 72018 ####[facility],[address] [place], [place] [address] Hemoglobin (Bld) [Mass/Vol] 16.7 g/dL High 12.0 - 16.0 [facility] Comment on above: Performed By: #### 2 62603 ####[facility],[address] [place], [place] [address] Lymph # 1.49 x10EE3/UL Normal 0.80 - 2.80 [facility] Comment on above: Performed By: #### 2 68053 ####[facility],[address] [place] [address] 43090 Lymphocytes/100 WBC (Bld) 18.2 % Low 20.0 - 45.0 [facility] Comment on above: Performed By: #### 2 96771 ####[facility],[address] [place] [address] 49464 MANUAL DIFF N/A Normal [facility] Comment on above: Performed By: #### 2 44221 ####[facility],[address] [place] [address] 29538 MCH (RBC) [Entitic mass] 29 pg Normal 27 - 33 [facility] Comment on above: Performed By: #### 2 45664 ####[facility],[address] [place] [address] MCHC 35 X10 3 Normal 32 - 36 [facility] Comment on above: Performed By: #### 2 67672 ####[facility],[address] [place] [address] 83716 MCV (RBC) [Entitic vol] 85 fL Normal 80 - 99 [facility] Comment on above: Performed By: #### 2 97995 ####[facility],[address] [place] [address] 86320 Merrick # 0.57 x10EE3/UL Normal 0.20 - 1.00 [facility] Comment on above: Performed By: #### 2 46670 ####[facility],[address] [place] [address] 40090 MONOS % 6.9 % Normal 0.0 - 10.0 [facility] Comment on above: Performed By: #### 2 04123 ####[facility],[address] [place] [address] 30305 Morphology Julian (Bld) [Interp] N/A Normal [facility] Comment on above: Performed By: #### 2 29315 ####[facility],[address] [place] [address] 18624 Neut # 6.00 x10EE3/UL Normal 1.50 - 7.10 [facility] Comment on above: Performed By: #### 2 76910 ####[facility],[address] [place] [address] 37163 Neutrophils/100 WBC (Bld) 73.2 % Normal 46.0 - 76.0 [facility] Comment on above: Performed By: #### 2 34981 ####[facility],[address] [place] [address] 85418 PLATELET 291 x10EE3/UL Normal 150 - 450 [facility] Comment on above: Performed By: #### 2 90043 ####[facility],[address] [place] [address] 18233 Platelet mean volume (Bld) [Entitic vol] 7.4 fL Normal 6.6 - 10.5 [facility] Comment on above: Result Comment: AUTO MATED DIFFERENTIAL Performed By: #### 2 79265 ####[facility],[address] [place] [address] 66615 RBC 5.69 x 10EE6/UL High 4.10 - 5.30 [facility] Comment on above: Performed By: #### 2 73216 ####[facility],[address] [place] [address] 22120 WBC 8.2 x 10EE3/UL Normal 4.5 - 10.8 [facility] Comment on above: Performed By: #### 2 78175 ####[facility],[address] [place] [address] 92014 C-REACTIVE PROTEINon 025 CRP 0.29 mg/dl Normal 0.00 - 0.90 [facility] Comment on above: Performed By: #### 2 59824 ####[facility],[address] [place] [address] 69327 CBC + DIFFon 10-06-2024 Baso # 0.04 x10EE3/UL Normal 0.00 - 0.10 [facility] Comment on above: Performed By: #### 2 78767 ####[facility],[address] [place] [address] 84936 Basophils/100 WBC (Bld) 0.3 % Normal 0.0 - 2.0 [facility] Comment on above: Performed By: #### 2 48349 ####[facility],[address] [place] [address] CBC + DIFF Normal [facility] Comment on above: Result Comment: CBC- COMPLETE BLOOD COUNT Performed By: #### 2 56562 ####[facility],[address] [place] [address] EO # 0.10 x10EE3/UL Normal 0.00 - 0.50 [facility] Comment on above: Performed By: #### 2 79184 ####[facility],[address] [place], [place] [phone] Eosinophils/100 WBC (Bld) 0.8 % Normal 0.0 - 7.0 [facility] Comment on above: Performed By: #### 2 84004 ####[facility],[address] [place] [address] Erythrocyte distribution width (RBC) [Ratio] 13.3 % Normal 12.0 - 15.6 [facility] Comment on above: Performed By: #### 2 78257 ####[facility],[address] [place] [address] Hematocrit (Bld) [Volume fraction] 48.4 % High 34.0 - 46.0 [facility] Comment on above: Performed By: #### 2 06341 ####[facility],[address] [place], [place] [phone] Hemoglobin (Bld) [Mass/Vol] 16.6 g/dL High 12.0 - 16.0 [facility] Comment on above: Performed By: #### 2 22028 ####[facility],[address] [place] [address] 58505 Lymph # 0.78 x10EE3/UL Low 0.80 - 2.80 [facility] Comment on above: Performed By: #### 2 29628 ####[facility],[address] [place] [address] 96778 Lymphocytes/100 WBC (Bld) 5.6 % Low 20.0 - 45.0 [facility] Comment on above: Performed By: #### 2 87945 ####[facility],[address] [place] [address] 80652 MANUAL DIFF N/A Normal [facility] Comment on above: Performed By: #### 2 92717 ####[facility],[address] [place], [place] [phone] MCH (RBC) [Entitic mass] 29 pg Normal 27 - 33 [facility] Comment on above: Performed By: #### 2 18715 ####[facility],[address] [place] [address] 89282 MCHC 34 X10 3 Normal 32 - 36 [facility] Comment on above: Performed By: #### 2 06148 ####[facility],[address] [place] [address] 54992 MCV (RBC) [Entitic vol] 85 fL Normal 80 - 99 [facility] Comment on above: Performed By: #### 2 51057 ####[facility],[address] [place] [address] 73261 Merrick # 0.65 x10EE3/UL Normal 0.20 - 1.00 [facility] Comment on above: Performed By: #### 2 28375 ####[facility],[address] [place] [address] 20560 MONOS % 4.7 % Normal 0.0 - 10.0 [facility] Comment on above: Performed By: #### 2 78085 ####[facility],[address] [place] [address] 72681 Morphology Julian (Bld) [Interp] N/A Normal [facility] Comment on above: Performed By: #### 2 46475 ####[facility],[address] [place] [address] 10012 Neut # 12.26 x10EE3/UL High 1.50 - 7.10 [facility] Comment on above: Performed By: #### 2 47536 ####[facility],[address] [place] [address] 67264 Neutrophils/100 WBC (Bld) 88.7 % High 46.0 - 76.0 [facility] Comment on above: Performed By: #### 2 17875 ####[facility],[address] [place] [address] 95000 PLATELET 316 x10EE3/UL Normal 150 - 450 [facility] Comment on above: Performed By: #### 2 65269 ####[facility],[address] [place] [address] 08056 Platelet mean volume (Bld) [Entitic vol] 7.1 fL Normal 6.6 - 10.5 [facility] Comment on above: Result Comment: AUTO MATED DIFFERENTIAL Performed By: #### 2 80843 ####[facility],[address] [place] [address] 07364 RBC 5.71 x 10EE6/UL High 4.10 - 5.30 [facility] Comment on above: Performed By: #### 2 56004 ####[facility],[address] [place] [address] 70224 WBC 13.8 x 10EE3/UL High 4.5 - 10.8 [facility] Comment on above: Performed By: #### 2 27548 ####[facility],[address] [place] [address] 99153 CMP with eGFRon 10-06-2024 AGE 74 years Normal [facility] Comment on above: Performed By: #### 2 65641 ####[facility],[address] [place] [address] 49780 Albumin [Mass/Vol] 4.1 g/dL Normal 3.4 - 5.0 [facility] Comment on above: Performed By: #### 2 42669 ####[facility],[address] [place] [address] 75170 Albumin/Globulin [Mass ratio] 0.9 {ratio} Normal 0.9 - 1.6 [facility] Comment on above: Performed By: #### 2 59183 ####[facility],[address] [place] [address] 74677 ALK PHOS 109 U/L Normal 46 - 116 [facility] Comment on above: Performed By: #### 2 50041 ####[facility],[address] [place] [address] 47991 ALT [Catalytic activity/Vol] 28 U/L Normal 16 - 63 [facility] Comment on above: Performed By: #### 2 04956 ####[facility],[address] [place] [address] 03229 Anion gap [Moles/Vol] 14 mmol/L Normal 10 - 20 [facility] Comment on above: Performed By: #### 2 84492 ####[facility],[address] [place] [address] 01558 AST [Catalytic activity/Vol] 30 U/L Normal 13 - 39 [facility] Comment on above: Performed By: #### 2 16782 ####[facility],[address] [place] [address] 06411 B/C RATIO 15 ratio Normal 0 - 30 [facility] Comment on above: Performed By: #### 2 95420 ####[facility],[address] [place] [address] 58729 Bilirubin [Mass/Vol] 0.6 mg/dL Normal 0.2 - 1.0 [facility] Comment on above: Performed By: #### 2 22892 ####[facility],[address] [place] [address] 29766 Calcium [Mass/Vol] 9.8 mg/dL Normal 8.5 - 10.1 [facility] Comment on above: Performed By: #### 2 86331 ####[facility],[address] [place] [address] 88317 Chloride [Moles/Vol] 96 mmol/L Low 98 - 107 [facility] Comment on above: Performed By: #### 2 37599 ####[facility],[address] [place] [address] 69874 CMP with eGFR Normal [facility] Comment on above: Result Comment: COMP REHENSIVE METABOLIC PANEL Performed By: #### 2 93009 ####[facility],[address] [place] [address] 73475 CO2 [Moles/Vol] 28.8 mmol/L Normal 21.0 - 32.0 [facility] Comment on above: Performed By: #### 2 59555 ####[facility],[address] [place] [address] 72383 Creatinine [Mass/Vol] 1.21 mg/dL High 0.55 - 1.02 [facility] Comment on above: Performed By: #### 2 16569 ####[facility],[address] [place] [address] 88537 eGFR 44 ML/MINUTE Low 60 - 999 [facility] Comment on above: Performed By: #### 2 41200 ####[facility],[address] [place] [address] 69443 eGFR(AA) 53 ML/MINUTE Low 60 - 999 [facility] Comment on above: Result Comment: ACCO RDING TO THE NATIONAL KIDNEY DISEASE EDUCATION PROGRAM(NKDE), A NORMAL eGFRIS A VALUE GREATER THAN OR EQUAL TO 60 ML/MIN/1.73 SQ METERS.CHRONIC KIDNEY DISEASE: <60mL/MIN/1.73 SQ METERSKIDNEY FAILURE: <15mL/MIN/1.73 SQ METERSTHIS TEST SHOULD ONLY BE USED FOR PATIENTS 18 YEARS OF AGE AND OLDER. Performed By: #### 2 30399 ####[facility],[address] [place] [address] 20324 Globulin (S) [Mass/Vol] 4.8 g/dL High 1.5 - 3.8 [facility] Comment on above: Performed By: #### 2 97375 ####[facility],[address] [place] [address] 73376 Glucose [Mass/Vol] 135 mg/dL High 74 - 106 [facility] Comment on above: Performed By: #### 2 20213 ####[facility],[address] [place] [address] 25790 Potassium [Moles/Vol] 4.2 mmol/L Normal 3.5 - 5.1 [facility] Comment on above: Performed By: #### 2 17404 ####[facility],[address] [place] [address] 34147 Protein [Mass/Vol] 8.9 g/dL High 6.4 - 8.2 [facility] Comment on above: Performed By: #### 2 54363 ####[facility],[address] [place] [address] 15555 Sodium [Moles/Vol] 135 mmol/L Low 136 - 145 [facility] Comment on above: Performed By: #### 2 89825 ####[facility],[address] [place] [address] 92697 Urea nitrogen [Mass/Vol] 18 mg/dL Normal 7 - 18 [facility] Comment on above: Performed By: #### 2 90345 ####[facility],[address] [place] [address] 59701 ED MED ADMINISTRATION DETAIL on 10-06-2024 ED MED ADMINISTRATION DETAIL Normal [facility] ED NURSES CLINICAL NOTEon ED NURSES CLINICAL NOTE Normal [facility] ED ORDER SHEET (CPOE ONLY)on 10-06-2024 ED ORDER SHEET (CPOE ONLY) Normal [facility] ED PHYSICIAN CLINICAL REPORT on 10-06-2024 ED PHYSICIAN CLINICAL REPORT Normal [facility] ED SUPER BILLon 10-06-2024 ED SUPER BILL Normal [facility] ED VISIT SUMMARYon ED VISIT SUMMARY Normal [facility] ED VITALS FLOW SHEETon 10-06 ED VITALS FLOW SHEET Normal [facility] LIPASEon 10-06-2024 Lipase [Catalytic activity/Vol] 154.0 U/L High 15.0 - 78.0 [facility] Comment on above: Result Comment: *PLE ASE NOTE THAT RANGES FOR LIPASE HAVE CHANGED OF 04/12/23 DUE TO AN ASSAYUPDATE BY THE PARTS COORDINATOR.THE NEW ASSAY RANGE IS 6-250 U/L, WITH A REFERENCERANGE OF 16-77 U/L. Performed By: #### 2 26775 ####[facility],[address] [place] [address] 26752 ED MED ADMINISTRATION DETAIL on 09-02-2024 ED MED ADMINISTRATION DETAIL Normal [facility] ED NURSES CLINICAL NOTEon ED NURSES CLINICAL NOTE Normal [facility] ED ORDER SHEET (CPOE ONLY)on 09-02-2024 ED ORDER SHEET (CPOE ONLY) Normal [facility] ED PHYSICIAN CLINICAL REPORT on 09-02-2024 ED PHYSICIAN CLINICAL REPORT Normal [facility] ED SUPER BILLon 09-02-2024 ED SUPER BILL Normal [facility] ED VISIT SUMMARYon ED VISIT SUMMARY Normal [facility] ED VITALS FLOW SHEETon 09-02 ED VITALS FLOW SHEET Normal [facility] CBC + DIFFon 09-01-2024 Baso # 0.03 x10EE3/UL Normal 0.00 - 0.10 [facility] Comment on above: Performed By: #### 2 61857 ####[facility],[address] [place], [place] [phone] Basophils/100 WBC (Bld) 0.3 % Normal 0.0 - 2.0 [facility] Comment on above: Performed By: #### 2 54138 ####[facility],[address] [place] [address] CBC + DIFF Normal [facility] Comment on above: Result Comment: CBC- COMPLETE BLOOD COUNT Performed By: #### 2 99532 ####[facility],[address] [place] [address] EO # 0.13 x10EE3/UL Normal 0.00 - 0.50 [facility] Comment on above: Performed By: #### 2 43390 ####[facility],[address] [place] [address] Eosinophils/100 WBC (Bld) 1.0 % Normal 0.0 - 7.0 [facility] Comment on above: Performed By: #### 2 85237 ####[facility],[address] [place] [address] Erythrocyte distribution width (RBC) [Ratio] 13.8 % Normal 12.0 - 15.6 [facility] Comment on above: Performed By: #### 2 12774 ####[facility],[address] [place] [address] Hematocrit (Bld) [Volume fraction] 49.7 % High 34.0 - 46.0 [facility] Comment on above: Performed By: #### 2 45504 ####[facility],[address] [place] [address] Hemoglobin (Bld) [Mass/Vol] 16.8 g/dL High 12.0 - 16.0 [facility] Comment on above: Performed By: #### 2 95708 ####[facility],[address] [place], [place] [id number] Lymph # 1.20 x10EE3/UL Normal 0.80 - 2.80 [facility] Comment on above: Performed By: #### 2 17701 ####[facility],[address] [place] [address] 28627 Lymphocytes/100 WBC (Bld) 9.3 % Low 20.0 - 45.0 [facility] Comment on above: Performed By: #### 2 04581 ####[facility],[address] [place] [address] 23436 MANUAL DIFF N/A Normal [facility] Comment on above: Performed By: #### 2 03142 ####[facility],[address] [place] [address] MCH (RBC) [Entitic mass] 29 pg Normal 27 - 33 [facility] Comment on above: Performed By: #### 2 80560 ####[facility],[address] [place] [address] MCHC 34 X10 3 Normal 32 - 36 [facility] Comment on above: Performed By: #### 2 68018 ####[facility],[address] [place], [place] [phone] MCV (RBC) [Entitic vol] 86 fL Normal 80 - 99 [facility] Comment on above: Performed By: #### 2 81914 ####[facility],[address] [place] [address] Merrick # 0.63 x10EE3/UL Normal 0.20 - 1.00 [facility] Comment on above: Performed By: #### 2 91452 ####[facility],[address] [place] [address] 34340 MONOS % 4.9 % Normal 0.0 - 10.0 [facility] Comment on above: Performed By: #### 2 79663 ####[facility],[address] [place] [address] 91080 Morphology Julian (Bld) [Interp] N/A Normal [facility] Comment on above: Performed By: #### 2 71420 ####[facility],[address] [place] [address] 14642 Neut # 10.86 x10EE3/UL High 1.50 - 7.10 [facility] Comment on above: Performed By: #### 2 84474 ####[facility],[address] [place] [address] 20895 Neutrophils/100 WBC (Bld) 84.5 % High 46.0 - 76.0 [facility] Comment on above: Performed By: #### 2 10593 ####[facility],[address] [place] [address] 78064 PLATELET 354 x10EE3/UL Normal 150 - 450 [facility] Comment on above: Performed By: #### 2 10654 ####[facility],[address] [place] [address] 21053 Platelet mean volume (Bld) [Entitic vol] 7.7 fL Normal 6.6 - 10.5 [facility] Comment on above: Result Comment: AUTO MATED DIFFERENTIAL Performed By: #### 2 42720 ####[facility],[address] [place] [address] 12997 RBC 5.78 x 10EE6/UL High 4.10 - 5.30 [facility] Comment on above: Performed By: #### 2 28428 ####[facility],[address] [place] [address] 03402 WBC 12.9 x 10EE3/UL High 4.5 - 10.8 [facility] Comment on above: Performed By: #### 2 45708 ####[facility],[address] [place] [address] 81930 CMP with eGFRon 09-01-2024 AGE 74 years Normal [facility] Comment on above: Performed By: #### 2 26932 ####[facility],[address] [place] [address] 71395 Albumin [Mass/Vol] 4.7 g/dL Normal 3.4 - 5.0 [facility] Comment on above: Performed By: #### 2 25420 ####[facility],[address] [place] [address] 13751 Albumin/Globulin [Mass ratio] 1.1 {ratio} Normal 0.9 - 1.6 [facility] Comment on above: Performed By: #### 2 28413 ####[facility],[address] [place] [address] 13920 ALK PHOS 113 U/L Normal 46 - 116 [facility] Comment on above: Performed By: #### 2 29862 ####[facility],[address] [place] [address] 21924 ALT [Catalytic activity/Vol] 24 U/L Normal 16 - 63 [facility] Comment on above: Performed By: #### 2 68188 ####[facility],[address] [place] [address] 49501 Anion gap [Moles/Vol] 6 mmol/L Low 10 - 20 [facility] Comment on above: Performed By: #### 2 49207 ####[facility],[address] [place] [address] 92788 AST [Catalytic activity/Vol] 18 U/L Normal 13 - 39 [facility] Comment on above: Performed By: #### 2 73788 ####[facility],[address] [place] [address] 48033 B/C RATIO 12 ratio Normal 0 - 30 [facility] Comment on above: Performed By: #### 2 86915 ####[facility],[address] [place] [address] 75859 Bilirubin [Mass/Vol] 0.5 mg/dL Normal 0.2 - 1.0 [facility] Comment on above: Performed By: #### 2 65948 ####[facility],[address] [place] [address] 61267 Calcium [Mass/Vol] 10.0 mg/dL Normal 8.5 - 10.1 [facility] Comment on above: Performed By: #### 2 81459 ####[facility],[address] [place], [place] [phone] Chloride [Moles/Vol] 94 mmol/L Low 98 - 107 [facility] Comment on above: Performed By: #### 2 58462 ####[facility],[address] [place] [address] CMP with eGFR Normal [facility] Comment on above: Result Comment: COMP REHENSIVE METABOLIC PANEL Performed By: #### 2 37780 ####[facility],[address] [place] [address] CO2 [Moles/Vol] 27.1 mmol/L Normal 21.0 - 32.0 [facility] Comment on above: Performed By: #### 2 84038 ####[facility],[address] [place] [address] Creatinine [Mass/Vol] 1.54 mg/dL High 0.55 - 1.02 [facility] Comment on above: Performed By: #### 2 45628 ####[facility],[address] [place] [address] eGFR 33 ML/MINUTE Low 60 - 999 [facility] Comment on above: Performed By: #### 2 31266 ####[facility],[address] [place] [address] eGFR(AA) 40 ML/MINUTE Low 60 - 999 [facility] Comment on above: Result Comment: ACCO RDING TO THE NATIONAL KIDNEY DISEASE EDUCATION PROGRAM(NKDE), A NORMAL eGFRIS A VALUE GREATER THAN OR EQUAL TO 60 ML/MIN/1.73 SQ METERS.CHRONIC KIDNEY DISEASE: <60mL/MIN/1.73 SQ METERSKIDNEY FAILURE: <15mL/MIN/1.73 SQ METERSTHIS TEST SHOULD ONLY BE USED FOR PATIENTS 18 YEARS OF AGE AND OLDER. Performed By: #### 2 24148 ####[facility],[address] [place] [address] 25131 Globulin (S) [Mass/Vol] 4.1 g/dL High 1.5 - 3.8 [facility] Comment on above: Performed By: #### 2 36764 ####[facility],[address] [place] [address] 53558 Glucose [Mass/Vol] 145 mg/dL High 74 - 106 [facility] Comment on above: Performed By: #### 2 76773 ####[facility],[address] [place] [address] 78013 Potassium [Moles/Vol] 3.3 mmol/L Low 3.5 - 5.1 [facility] Comment on above: Performed By: #### 2 89436 ####[facility],[address] [place] [address] 91846 Protein [Mass/Vol] 8.8 g/dL High 6.4 - 8.2 [facility] Comment on above: Performed By: #### 2 27191 ####[facility],[address] [place] [address] 55856 Sodium [Moles/Vol] 124 mmol/L Low 136 - 145 [facility] Comment on above: Performed By: #### 2 76413 ####[facility],[address] [place] [address] 55474 Urea nitrogen [Mass/Vol] 19 mg/dL High 7 - 18 [facility] Comment on above: Performed By: #### 2 26932 ####[facility],[address] [place] [address] 04646 LIPASEon 09-01-2024 ERROR DUE TO AUTO HAYDEE Normal [facility] Comment on above: Performed By: #### 2 43583 ####[facility],[address] [place] [address] 82577 LIPASE Normal 15.0 - 78.0 [facility] Comment on above: Result Comment: CORRECTED REPORT319.0*PLEASE NOTE THAT RANGES FOR LIPASE HAVE CHANGED OF 04/12/23 DUE TO AN ASSAYUPDATE BY THE PARTS COORDINATOR.THE NEW ASSAY RANGE IS 6-250 U/L, WITH A REFERENCERANGE OF 16-77 U/L. FOLLOWING RESULTS REPORTED IN ERROR LP] LIPASE >250.0 H <-- *Previously reported in error 09/01/24.1329.LMM. .DIM1. .3040-3 . Performed By: #### 2 29499 ####[place] [address] TROPONINon 09-01-2024 HS TROPONIN <4.0 Normal 0.0 - 51.4 [facility] Comment on above: Performed By: #### 2 90757 ####[place] [id number] CBC + DIFFon 08-24-2024 Baso # 0.03 x10EE3/UL Normal 0.00 - 0.10 [facility] Comment on above: Performed By: #### 2 18127 ####[place] [id number] Basophils/100 WBC (Bld) 0.3 % Normal 0.0 - 2.0 [facility] Comment on above: Performed By: #### 2 33634 ####[place] [address] CBC + DIFF Normal [facility] Comment on above: Result Comment: CBC- COMPLETE BLOOD COUNT Performed By: #### 2 87279 ####[place] [address] EO # 0.19 x10EE3/UL Normal 0.00 - 0.50 [facility] Comment on above: Performed By: #### 2 70286 ####[facility],[address] [place] [address] 83895 Eosinophils/100 WBC (Bld) 1.8 % Normal 0.0 - 7.0 [facility] Comment on above: Performed By: #### 2 28607 ####[facility],[address] [place] [address] Erythrocyte distribution width (RBC) [Ratio] 13.8 % Normal 12.0 - 15.6 [facility] Comment on above: Performed By: #### 2 81706 ####[facility],[address] [place] [address] Hematocrit (Bld) [Volume fraction] 49.6 % High 34.0 - 46.0 [facility] Comment on above: Performed By: #### 2 26090 ####[facility],[address] [place] [address] Hemoglobin (Bld) [Mass/Vol] 16.6 g/dL High 12.0 - 16.0 [facility] Comment on above: Performed By: #### 2 63468 ####[facility],[address] [place] [address] 55026 Lymph # 1.42 x10EE3/UL Normal 0.80 - 2.80 [facility] Comment on above: Performed By: #### 2 59667 ####[facility],[address] [place] [address] 30665 Lymphocytes/100 WBC (Bld) 13.4 % Low 20.0 - 45.0 [facility] Comment on above: Performed By: #### 2 41377 ####[facility],[address] [place], [place] [id number] MANUAL DIFF N/A Normal [facility] Comment on above: Performed By: #### 2 94673 ####[facility],[address] [place] [address] MCH (RBC) [Entitic mass] 29 pg Normal 27 - 33 [facility] Comment on above: Performed By: #### 2 32725 ####[facility],[address] [place] [address] MCHC 34 X10 3 Normal 32 - 36 [facility] Comment on above: Performed By: #### 2 75636 ####[facility],[address] [place] [address] MCV (RBC) [Entitic vol] 86 fL Normal 80 - 99 [facility] Comment on above: Performed By: #### 2 52337 ####[facility],[address] [place] [address] Merrick # 0.62 x10EE3/UL Normal 0.20 - 1.00 [facility] Comment on above: Performed By: #### 2 72316 ####[facility],[address] [place] [address] MONOS % 5.9 % Normal 0.0 - 10.0 [facility] Comment on above: Performed By: #### 2 35848 ####[facility],[address] [place], [place] [id number] Morphology Julian (Bld) [Interp] N/A Normal [facility] Comment on above: Performed By: #### 2 14097 ####[facility],[address] [place] [address] Neut # 8.30 x10EE3/UL High 1.50 - 7.10 [facility] Comment on above: Performed By: #### 2 19675 ####[facility],[address] [place] [address] Neutrophils/100 WBC (Bld) 78.6 % High 46.0 - 76.0 [facility] Comment on above: Performed By: #### 2 99736 ####[facility],[address] [place] [address] 79732 PLATELET 319 x10EE3/UL Normal 150 - 450 [facility] Comment on above: Performed By: #### 2 10274 ####[facility],[address] [place] [address] 46608 Platelet mean volume (Bld) [Entitic vol] 7.6 fL Normal 6.6 - 10.5 [facility] Comment on above: Result Comment: AUTO MATED DIFFERENTIAL Performed By: #### 2 69664 ####[facility],[address] [place] [address] 46242 RBC 5.77 x 10EE6/UL High 4.10 - 5.30 [facility] Comment on above: Performed By: #### 2 38447 ####[facility],[address] [place] [address] 57670 WBC 10.6 x 10EE3/UL Normal 4.5 - 10.8 [facility] Comment on above: Performed By: #### 2 98644 ####[facility],[address] [place] [address] 91697 CMP with eGFRon 08-24-2024 AGE 74 years Normal [facility] Comment on above: Performed By: #### 2 82719 ####[facility],[address] [place] [address] 04795 Albumin [Mass/Vol] 4.6 g/dL Normal 3.4 - 5.0 [facility] Comment on above: Performed By: #### 2 36010 ####[facility],[address] [place] [address] 77579 Albumin/Globulin [Mass ratio] 1.0 {ratio} Normal 0.9 - 1.6 [facility] Comment on above: Performed By: #### 2 32802 ####[facility],[address] [place] [address] 24389 ALK PHOS 116 U/L Normal 46 - 116 [facility] Comment on above: Performed By: #### 2 20584 ####[facility],[address] [place] [address] 76813 ALT [Catalytic activity/Vol] 25 U/L Normal 16 - 63 [facility] Comment on above: Performed By: #### 2 41373 ####[facility],[address] [place] [address] 02498 Anion gap [Moles/Vol] 18 mmol/L Normal 10 - 20 [facility] Comment on above: Performed By: #### 2 29866 ####[facility],[address] [place] [address] 65087 AST [Catalytic activity/Vol] 26 U/L Normal 13 - 39 [facility] Comment on above: Performed By: #### 2 69922 ####[facility],[address] [place] [address] 66783 B/C RATIO 11 ratio Normal 0 - 30 [facility] Comment on above: Performed By: #### 2 44796 ####[facility],[address] [place] [address] 11765 Bilirubin [Mass/Vol] 0.5 mg/dL Normal 0.2 - 1.0 [facility] Comment on above: Performed By: #### 2 58495 ####[facility],[address] [place] [address] 29450 Calcium [Mass/Vol] 10.7 mg/dL High 8.5 - 10.1 [facility] Comment on above: Performed By: #### 2 39096 ####[facility],[address] [place] [address] 02960 Chloride [Moles/Vol] 98 mmol/L Normal 98 - 107 [facility] Comment on above: Performed By: #### 2 26798 ####[facility],[address] [place] [address] 36219 CMP with eGFR Normal [facility] Comment on above: Result Comment: COMP REHENSIVE METABOLIC PANEL Performed By: #### 2 68422 ####[facility],[address] [place] [address] 38461 CO2 [Moles/Vol] 25.7 mmol/L Normal 21.0 - 32.0 [facility] Comment on above: Performed By: #### 2 95776 ####[facility],[address] [place] [address] 12877 Creatinine [Mass/Vol] 1.47 mg/dL High 0.55 - 1.02 [facility] Comment on above: Performed By: #### 2 55560 ####[facility],[address] [place] [address] 07754 eGFR 35 ML/MINUTE Low 60 - 999 [facility] Comment on above: Performed By: #### 2 10513 ####[facility],[address] [place] [address] 63281 eGFR(AA) 42 ML/MINUTE Low 60 - 999 [facility] Comment on above: Result Comment: ACCO RDING TO THE NATIONAL KIDNEY DISEASE EDUCATION PROGRAM(NKDE), A NORMAL eGFRIS A VALUE GREATER THAN OR EQUAL TO 60 ML/MIN/1.73 SQ METERS.CHRONIC KIDNEY DISEASE: <60mL/MIN/1.73 SQ METERSKIDNEY FAILURE: <15mL/MIN/1.73 SQ METERSTHIS TEST SHOULD ONLY BE USED FOR PATIENTS 18 YEARS OF AGE AND OLDER. Performed By: #### 2 82669 ####[facility],[address] [place] [address] 07550 Globulin (S) [Mass/Vol] 4.6 g/dL High 1.5 - 3.8 [facility] Comment on above: Performed By: #### 2 27159 ####[facility],[address] [place] [address] 38655 Glucose [Mass/Vol] 126 mg/dL High 74 - 106 [facility] Comment on above: Performed By: #### 2 41146 ####[facility],[address] [place] [address] 10505 Potassium [Moles/Vol] 4.2 mmol/L Normal 3.5 - 5.1 [facility] Comment on above: Performed By: #### 2 63928 ####[facility],[address] [place] [address] 36918 Protein [Mass/Vol] 9.2 g/dL High 6.4 - 8.2 [facility] Comment on above: Performed By: #### 2 14146 ####[facility],[address] [place] [address] 35481 Sodium [Moles/Vol] 137 mmol/L Normal 136 - 145 [facility] Comment on above: Performed By: #### 2 10491 ####[facility],[address] [place] [address] 95873 Urea nitrogen [Mass/Vol] 16 mg/dL Normal 7 - 18 [facility] Comment on above: Performed By: #### 2 91974 ####[facility],[address] [place] [address] 59893 ED MED ADMINISTRATION DETAIL on 08-24-2024 ED MED ADMINISTRATION DETAIL Normal [facility] ED NURSES CLINICAL NOTEon ED NURSES CLINICAL NOTE Normal [facility] ED ORDER SHEET (CPOE ONLY)on 08-24-2024 ED ORDER SHEET (CPOE ONLY) Normal [facility] ED PHYSICIAN CLINICAL REPORT on 08-24-2024 ED PHYSICIAN CLINICAL REPORT Normal [facility] ED SUPER BILLon 08-24-2024 ED SUPER BILL Normal [facility] ED VISIT SUMMARYon ED VISIT SUMMARY Normal [facility] ED VITALS FLOW SHEETon 08-24 ED VITALS FLOW SHEET Normal [facility] BMP with eGFRon 08-19-2024 AGE 74 years Normal [facility] Comment on above: Performed By: #### 2 18342 ####[facility],[address] [place] [address] 74751 Anion gap [Moles/Vol] 10 mmol/L Normal 10 - 20 [facility] Comment on above: Performed By: #### 2 64503 ####[facility],[address] [place] [address] 86467 BMP with eGFR Normal [facility] Comment on above: Result Comment: BASI C METABOLIC PANEL Performed By: #### 2 40202 ####[facility],[address] [place] [address] 55399 Calcium [Mass/Vol] 9.6 mg/dL Normal 8.5 - 10.1 [facility] Comment on above: Performed By: #### 2 13386 ####[facility],[address] [place] [address] 13364 Chloride [Moles/Vol] 104 mmol/L Normal 98 - 107 [facility] Comment on above: Performed By: #### 2 95015 ####[facility],[address] [place] [address] 87912 CO2 [Moles/Vol] 31.4 mmol/L Normal 21.0 - 32.0 [facility] Comment on above: Performed By: #### 2 48143 ####[facility],[address] [place] [address] 50558 Creatinine [Mass/Vol] 1.07 mg/dL High 0.55 - 1.02 [facility] Comment on above: Performed By: #### 2 40058 ####[facility],[address] [place] [address] 63912 eGFR 50 ML/MINUTE Low 60 - 999 [facility] Comment on above: Performed By: #### 2 45230 ####[facility],[address] [place] [address] 63682 GFR/1.73 sq M.predicted among non-blacks MDRD (S/P/Bld) [Vol rate/Area] mL/min/{1.73_m2} Normal 60 - 999 [facility] Comment on above: Result Comment: ACCO RDING TO THE NATIONAL KIDNEY DISEASE EDUCATION PROGRAM(NKDE), A NORMAL eGFRIS A VALUE GREATER THAN OR EQUAL TO 60 ML/MIN/1.73 SQ METERS.CHRONIC KIDNEY DISEASE: <60mL/MIN/1.73 SQ METERSKIDNEY FAILURE: <15mL/MIN/1.73 SQ METERSTHIS TEST SHOULD ONLY BE USED FOR PATIENTS 18 YEARS OF AGE AND OLDER. Performed By: #### 2 35292 ####[address] [address] Glucose [Mass/Vol] 90 mg/dL Normal 74 - 106 [facility] Comment on above: Performed By: #### 2 40397 ####[address] [address] Potassium [Moles/Vol] 4.3 mmol/L Normal 3.5 - 5.1 [facility] Comment on above: Performed By: #### 2 69073 ####[facility],[address] [place] [address] 76956 Sodium [Moles/Vol] 141 mmol/L Normal 136 - 145 [facility] Comment on above: Performed By: #### 2 55503 ####[address] [address] Urea nitrogen [Mass/Vol] 15 mg/dL Normal 7 - 18 [facility] Comment on above: Performed By: #### 2 99284 ####[address] [address] CBC + DIFFon 08-18-2024 Baso # 0.02 x10EE3/UL Normal 0.00 - 0.10 [facility] Comment on above: Performed By: #### 2 94676 ####[address] [address] Basophils/100 WBC (Bld) 0.3 % Normal 0.0 - 2.0 [facility] Comment on above: Performed By: #### 2 63445 ####[facility],[address] [place] [address] 36093 CBC + DIFF Normal [facility] Comment on above: Result Comment: CBC- COMPLETE BLOOD COUNT Performed By: #### 2 34215 ####[facility],[address] [place] [address] 00233 EO # 0.10 x10EE3/UL Normal 0.00 - 0.50 [facility] Comment on above: Performed By: #### 2 75117 ####[facility],[address] [place] [address] 03491 Eosinophils/100 WBC (Bld) 1.1 % Normal 0.0 - 7.0 [facility] Comment on above: Performed By: #### 2 74658 ####[facility],[address] [place] [address] 30571 Erythrocyte distribution width (RBC) [Ratio] 13.7 % Normal 12.0 - 15.6 [facility] Comment on above: Performed By: #### 2 07116 ####[facility],[address] [place] [address] 57957 Hematocrit (Bld) [Volume fraction] 48.4 % High 34.0 - 46.0 [facility] Comment on above: Performed By: #### 2 52623 ####[facility],[address] [place] [address] 58535 Hemoglobin (Bld) [Mass/Vol] 16.5 g/dL High 12.0 - 16.0 [facility] Comment on above: Performed By: #### 2 48560 ####[facility],[address] [place] [address] 04205 Lymph # 1.33 x10EE3/UL Normal 0.80 - 2.80 [facility] Comment on above: Performed By: #### 2 47294 ####[facility],[address] [place] [address] 25098 Lymphocytes/100 WBC (Bld) 14.0 % Low 20.0 - 45.0 [facility] Comment on above: Performed By: #### 2 04170 ####[facility],[address] [place] [address] MANUAL DIFF N/A Normal [facility] Comment on above: Performed By: #### 2 83519 ####[facility],[address] [place] [address] MCH (RBC) [Entitic mass] 29 pg Normal 27 - 33 [facility] Comment on above: Performed By: #### 2 53684 ####[facility],[address] [place] [address] MCHC 34 X10 3 Normal 32 - 36 [facility] Comment on above: Performed By: #### 2 93326 ####[facility],[address] [place] [address] MCV (RBC) [Entitic vol] 86 fL Normal 80 - 99 [facility] Comment on above: Performed By: #### 2 64540 ####[facility],[address] [place] [address] Merrick # 0.57 x10EE3/UL Normal 0.20 - 1.00 [facility] Comment on above: Performed By: #### 2 72380 ####[facility],[address] [place] [address] MONOS % 6.1 % Normal 0.0 - 10.0 [facility] Comment on above: Performed By: #### 2 26108 ####[facility],[address] [place], [place] [phone] Morphology Julian (Bld) [Interp] N/A Normal [facility] Comment on above: Performed By: #### 2 41157 ####[facility],[address] [place], [place] [id number] Neut # 7.44 x10EE3/UL High 1.50 - 7.10 [facility] Comment on above: Performed By: #### 2 22863 ####[facility],[address] [place] [address] 93693 Neutrophils/100 WBC (Bld) 78.6 % High 46.0 - 76.0 [facility] Comment on above: Performed By: #### 2 32518 ####[facility],[address] [place] [address] 55953 PLATELET 327 x10EE3/UL Normal 150 - 450 [facility] Comment on above: Performed By: #### 2 52204 ####[facility],[address] [place] [address] 80043 Platelet mean volume (Bld) [Entitic vol] 7.9 fL Normal 6.6 - 10.5 [facility] Comment on above: Result Comment: AUTO MATED DIFFERENTIAL Performed By: #### 2 84995 ####[facility],[address] [place] [address] 96780 RBC 5.63 x 10EE6/UL High 4.10 - 5.30 [facility] Comment on above: Performed By: #### 2 69531 ####[facility],[address] [place] [address] 08606 WBC 9.5 x 10EE3/UL Normal 4.5 - 10.8 [facility] Comment on above: Performed By: #### 2 22647 ####[facility],[address] [place] [address] 64902 CMP with eGFRon 08-18-2024 AGE 74 years Normal [facility] Comment on above: Performed By: #### 2 86736 ####[facility],[address] [place] [address] 68420 Albumin [Mass/Vol] 4.8 g/dL Normal 3.4 - 5.0 [facility] Comment on above: Performed By: #### 2 77876 ####[facility],[address] [place] [address] 37329 Albumin/Globulin [Mass ratio] 1.0 {ratio} Normal 0.9 - 1.6 [facility] Comment on above: Performed By: #### 2 81439 ####[facility],[address] [place] [address] 08092 ALK PHOS 112 U/L Normal 46 - 116 [facility] Comment on above: Performed By: #### 2 41471 ####[facility],[address] [place] [address] 75737 ALT [Catalytic activity/Vol] 25 U/L Normal 16 - 63 [facility] Comment on above: Performed By: #### 2 51015 ####[facility],[address] [place] [address] 44106 Anion gap [Moles/Vol] 18 mmol/L Normal 10 - 20 [facility] Comment on above: Performed By: #### 2 20276 ####[facility],[address] [place] [address] 94215 AST [Catalytic activity/Vol] 22 U/L Normal 13 - 39 [facility] Comment on above: Performed By: #### 2 22106 ####[facility],[address] [place] [address] 03360 B/C RATIO 9 ratio Normal 0 - 30 [facility] Comment on above: Performed By: #### 2 70112 ####[facility],[address] [place] [address] 62695 Bilirubin [Mass/Vol] 0.6 mg/dL Normal 0.2 - 1.0 [facility] Comment on above: Performed By: #### 2 34395 ####[facility],[address] [place] [address] 90504 Calcium [Mass/Vol] 11.2 mg/dL High 8.5 - 10.1 [facility] Comment on above: Performed By: #### 2 73775 ####[facility],[address] [place] [address] 16383 Chloride [Moles/Vol] 97 mmol/L Low 98 - 107 [facility] Comment on above: Performed By: #### 2 01699 ####[facility],[address] [place] [address] 49214 CMP with eGFR Normal [facility] Comment on above: Result Comment: COMP REHENSIVE METABOLIC PANEL Performed By: #### 2 51213 ####[facility],[address] [place] [address] CO2 [Moles/Vol] 29.8 mmol/L Normal 21.0 - 32.0 [facility] Comment on above: Performed By: #### 2 95337 ####[facility],[address] [place] [address] Creatinine [Mass/Vol] 2.29 mg/dL High 0.55 - 1.02 [facility] Comment on above: Performed By: #### 2 29386 ####[facility],[address] [place] [address] eGFR 21 ML/MINUTE Low 60 - 999 [facility] Comment on above: Performed By: #### 2 21841 ####[facility],[address] [place] [address] eGFR(AA) 25 ML/MINUTE Low 60 - 999 [facility] Comment on above: Result Comment: ACCO RDING TO THE NATIONAL KIDNEY DISEASE EDUCATION PROGRAM(NKDE), A NORMAL eGFRIS A VALUE GREATER THAN OR EQUAL TO 60 ML/MIN/1.73 SQ METERS.CHRONIC KIDNEY DISEASE: <60mL/MIN/1.73 SQ METERSKIDNEY FAILURE: <15mL/MIN/1.73 SQ METERSTHIS TEST SHOULD ONLY BE USED FOR PATIENTS 18 YEARS OF AGE AND OLDER. Performed By: #### 2 68078 ####[facility],[address] [place] [address] Globulin (S) [Mass/Vol] 4.6 g/dL High 1.5 - 3.8 [facility] Comment on above: Performed By: #### 2 43057 ####[facility],[address] [place] [address] 20378 Glucose [Mass/Vol] 179 mg/dL High 74 - 106 [facility] Comment on above: Performed By: #### 2 60085 ####[facility],[address] [place] [address] 27084 Potassium [Moles/Vol] 3.4 mmol/L Low 3.5 - 5.1 [facility] Comment on above: Performed By: #### 2 23022 ####[facility],[address] [place] [address] 06504 Protein [Mass/Vol] 9.4 g/dL High 6.4 - 8.2 [facility] [facility] Comment on above: Performed By: #### 2 63510 ####[facility],[address] [place] [address] 45571 Sodium [Moles/Vol] 141 mmol/L Normal 136 - 145 [facility] Comment on above: Performed By: #### 2 72738 ####[facility],[address] [place] [address] 55872 Urea nitrogen [Mass/Vol] 20 mg/dL High 7 - 18 [facility] Comment on above: Performed By: #### 2 54150 ####[facility],[address] [place] [address] ABDOMEN/PELVIS WOon 08-18 CT ABDOMEN/PELVIS WO Normal [facility] ED MED ADMINISTRATION DETAIL on 08-18-2024 ED MED ADMINISTRATION DETAIL Normal [facility] ED NURSES CLINICAL NOTEon ED NURSES CLINICAL NOTE Normal [facility] ED ORDER SHEET (CPOE ONLY)on 08-18-2024 ED ORDER SHEET (CPOE ONLY) Normal [facility] ED PHYSICIAN CLINICAL REPORT on 08-18-2024 ED PHYSICIAN CLINICAL REPORT Normal [facility] ED SUPER BILLon 08-18-2024 ED SUPER BILL Normal [facility] ED VISIT SUMMARYon ED VISIT SUMMARY Normal [facility] ED VITALS FLOW SHEETon 08-18 ED VITALS FLOW SHEET Normal [facility] LIPASEon 08-18-2024 ERROR DUE TO TECH ERROR Normal [facility] Comment on above: Performed By: #### 2 55188 ####[facility],[address] [place] [address] 31470 LIPASE Normal 15.0 - 78.0 [facility] Comment on above: Result Comment: CORRECTED REPORT138.0*PLEASE NOTE THAT RANGES FOR LIPASE HAVE CHANGED OF 04/12/23 DUE TO AN ASSAYUPDATE BY THE PARTS COORDINATOR.THE NEW ASSAY RANGE IS 6-250 U/L, WITH A REFERENCERANGE OF 16-77 U/L. FOLLOWING RESULTS REPORTED IN ERROR LP] LIPASE 180.0 H <-- *Previously reported in error 08/18/24.0355.ALA. .DIM2. .3040-3 . Performed By: #### 2 66903 ####[address] [address] CBC + DIFFon 07-29-2024 Baso # 0.03 x10EE3/UL Normal 0.00 - 0.10 [facility] Comment on above: Performed By: #### 2 16403 ####[address] [address] Basophils/100 WBC (Bld) 0.4 % Normal 0.0 - 2.0 [facility] Comment on above: Performed By: #### 2 16680 ####[facility],[address] [place] [address] CBC + DIFF Normal [facility] Comment on above: Result Comment: CBC- COMPLETE BLOOD COUNT Performed By: #### 2 95937 ####[facility],[address] [place] [address] EO # 0.11 x10EE3/UL Normal 0.00 - 0.50 [facility] Comment on above: Performed By: #### 2 83569 ####[facility],[address] [place] [address] Eosinophils/100 WBC (Bld) 1.4 % Normal 0.0 - 7.0 [facility] Comment on above: Performed By: #### 2 35316 ####[facility],[address] [place] [address] Erythrocyte distribution width (RBC) [Ratio] 13.8 % Normal 12.0 - 15.6 [facility] Comment on above: Performed By: #### 2 87878 ####[facility],[address] [place] [address] Hematocrit (Bld) [Volume fraction] 48.8 % High 34.0 - 46.0 [facility] Comment on above: Performed By: #### 2 54224 ####[facility],[address] [place] [address] Hemoglobin (Bld) [Mass/Vol] 16.4 g/dL High 12.0 - 16.0 [facility] Comment on above: Performed By: #### 2 45638 ####[facility],[address] [place] [address] Lymph # 1.11 x10EE3/UL Normal 0.80 - 2.80 [facility] Comment on above: Performed By: #### 2 23353 ####[facility],[address] [place], [place] [id number] Lymphocytes/100 WBC (Bld) 14.1 % Low 20.0 - 45.0 [facility] Comment on above: Performed By: #### 2 98707 ####[facility],[address] [place] [address] MANUAL DIFF N/A Normal [facility] Comment on above: Performed By: #### 2 49481 ####[facility],[address] [place] [address] MCH (RBC) [Entitic mass] 29 pg Normal 27 - 33 [facility] Comment on above: Performed By: #### 2 55685 ####[facility],[address] [place] [address] MCHC 34 X10 3 Normal 32 - 36 [facility] Comment on above: Performed By: #### 2 30730 ####[facility],[address] [place] [address] MCV (RBC) [Entitic vol] 85 fL Normal 80 - 99 [facility] Comment on above: Performed By: #### 2 90621 ####[facility],[address] [place] [address] Merrick # 0.59 x10EE3/UL Normal 0.20 - 1.00 [facility] Comment on above: Performed By: #### 2 34759 ####[facility],[address] [place] [address] MONOS % 7.4 % Normal 0.0 - 10.0 [facility] Comment on above: Performed By: #### 2 65798 ####[facility],[address] [place] [address] Morphology Julian (Bld) [Interp] N/A Normal [facility] Comment on above: Performed By: #### 2 52206 ####[facility],[address] [place] [address] Neut # 6.05 x10EE3/UL Normal 1.50 - 7.10 [facility] Comment on above: Performed By: #### 2 52222 ####[facility],[address] [place] [address] 21088 Neutrophils/100 WBC (Bld) 76.7 % High 46.0 - 76.0 [facility] Comment on above: Performed By: #### 2 65326 ####[facility],[address] [place] [address] 46221 PLATELET 354 x10EE3/UL Normal 150 - 450 [facility] Comment on above: Performed By: #### 2 34005 ####[facility],[address] [place] [address] 85158 Platelet mean volume (Bld) [Entitic vol] 7.6 fL Normal 6.6 - 10.5 [facility] Comment on above: Result Comment: AUTO MATED DIFFERENTIAL Performed By: #### 2 41822 ####[facility],[address] [place] [address] 57324 RBC 5.76 x 10EE6/UL High 4.10 - 5.30 [facility] Comment on above: Performed By: #### 2 18651 ####[facility],[address] [place] [address] 25210 WBC 7.9 x 10EE3/UL Normal 4.5 - 10.8 [facility] Comment on above: Performed By: #### 2 69931 ####[facility],[address] [place] [address] 77121 CMP with eGFRon 07-29-2024 AGE 74 years Normal [facility] Comment on above: Performed By: #### 2 59277 ####[facility],[address] [place] [address] 67694 Albumin [Mass/Vol] 4.8 g/dL Normal 3.4 - 5.0 [facility] Comment on above: Performed By: #### 2 75548 ####[facility],[address] [place] [address] 02870 Albumin/Globulin [Mass ratio] 1.1 {ratio} Normal 0.9 - 1.6 [facility] Comment on above: Performed By: #### 2 61498 ####[facility],[address] [place] [address] 31524 ALK PHOS 107 U/L Normal 46 - 116 [facility] Comment on above: Performed By: #### 2 02095 ####[facility],[address] [place] [address] 49297 ALT [Catalytic activity/Vol] 28 U/L Normal 16 - 63 [facility] Comment on above: Performed By: #### 2 30692 ####[facility],[address] [place] [address] 13166 Anion gap [Moles/Vol] 18 mmol/L Normal 10 - 20 [facility] Comment on above: Performed By: #### 2 09789 ####[facility],[address] [place] [address] 36815 AST [Catalytic activity/Vol] 21 U/L Normal 13 - 39 [facility] Comment on above: Performed By: #### 2 67916 ####[facility],[address] [place] [address] 96005 B/C RATIO 11 ratio Normal 0 - 30 [facility] Comment on above: Performed By: #### 2 05327 ####[facility],[address] [place] [address] 87884 Bilirubin [Mass/Vol] 0.6 mg/dL Normal 0.2 - 1.0 [facility] Comment on above: Performed By: #### 2 79973 ####[facility],[address] [place] [address] 74647 Calcium [Mass/Vol] 10.6 mg/dL High 8.5 - 10.1 [facility] Comment on above: Performed By: #### 2 74169 ####[facility],[address] [place] [address] 40215 Chloride [Moles/Vol] 99 mmol/L Normal 98 - 107 [facility] Comment on above: Performed By: #### 2 33439 ####[facility],[address] [place] [address] 90251 CMP with eGFR Normal [facility] Comment on above: Result Comment: COMP REHENSIVE METABOLIC PANEL Performed By: #### 2 11841 ####[facility],[address] [place] [address] 79049 CO2 [Moles/Vol] 27.1 mmol/L Normal 21.0 - 32.0 [facility] Comment on above: Performed By: #### 2 83539 ####[facility],[address] [place] [address] Creatinine [Mass/Vol] 1.69 mg/dL High 0.55 - 1.02 [facility] Comment on above: Performed By: #### 2 56457 ####[facility],[address] [place] [address] eGFR 30 ML/MINUTE Low 60 - 999 [facility] Comment on above: Performed By: #### 2 88756 ####[facility],[address] [place] [address] 26197 eGFR(AA) 36 ML/MINUTE Low 60 - 999 [facility] Comment on above: Result Comment: ACCO RDING TO THE NATIONAL KIDNEY DISEASE EDUCATION PROGRAM(NKDE), A NORMAL eGFRIS A VALUE GREATER THAN OR EQUAL TO 60 ML/MIN/1.73 SQ METERS.CHRONIC KIDNEY DISEASE: <60mL/MIN/1.73 SQ METERSKIDNEY FAILURE: <15mL/MIN/1.73 SQ METERSTHIS TEST SHOULD ONLY BE USED FOR PATIENTS 18 YEARS OF AGE AND OLDER. Performed By: #### 2 25099 ####[facility],[address] [place], [place] [id number] Globulin (S) [Mass/Vol] 4.5 g/dL High 1.5 - 3.8 [facility] Comment on above: Performed By: #### 2 23809 ####[address],[place] [address] Glucose [Mass/Vol] 145 mg/dL High 74 - 106 [facility] Comment on above: Performed By: #### 2 27883 ####[facility],[address] [place] [address] 03873 Potassium [Moles/Vol] 3.6 mmol/L Normal 3.5 - 5.1 [facility] Comment on above: Performed By: #### 2 48677 ####[facility],[address] [place] [address] 21841 Protein [Mass/Vol] 9.3 g/dL High 6.4 - 8.2 [facility] Comment on above: Performed By: #### 2 20909 ####[facility],[address] [place] [address] 28772 Sodium [Moles/Vol] 140 mmol/L Normal 136 - 145 [facility] Comment on above: Performed By: #### 2 10274 ####[facility],[address] [place] [address] 85714 Urea nitrogen [Mass/Vol] 19 mg/dL High 7 - 18 [facility] Comment on above: Performed By: #### 2 04730 ####[facility],[address] [place] [address] 98976 ED MED ADMINISTRATION DETAIL on 07-29-2024 ED MED ADMINISTRATION DETAIL Normal [facility] ED NURSES CLINICAL NOTEon ED NURSES CLINICAL NOTE Normal [facility] ED ORDER SHEET (CPOE ONLY)on 07-29-2024 ED ORDER SHEET (CPOE ONLY) Normal [facility] ED PHYSICIAN CLINICAL REPORT on 07-29-2024 ED PHYSICIAN CLINICAL REPORT Normal [facility] ED SUPER BILLon 07-29-2024 ED SUPER BILL Normal [facility] ED VISIT SUMMARYon ED VISIT SUMMARY Normal [facility] ED VITALS FLOW SHEETon 07-29 ED VITALS FLOW SHEET Normal [facility] C-REACTIVE PROTEINon 025 CRP 0.18 mg/dl Normal 0.00 - 0.90 [facility] Comment on above: Performed By: #### 2 65664 ####[facility],[address] [place] [address] 42860 CBC + DIFFon 07-20-2024 Baso # 0.04 x10EE3/UL Normal 0.00 - 0.10 [facility] Comment on above: Performed By: #### 2 23621 ####[facility],[address] [place] [address] 84619 Basophils/100 WBC (Bld) 0.3 % Normal 0.0 - 2.0 [facility] Comment on above: Performed By: #### 2 27948 ####[facility],[address] [place] [address] CBC + DIFF Normal [facility] Comment on above: Result Comment: CBC- COMPLETE BLOOD COUNT Performed By: #### 2 76206 ####[facility],[address] [place] [address] 97780 EO # 0.05 x10EE3/UL Normal 0.00 - 0.50 [facility] Comment on above: Performed By: #### 2 84736 ####[facility],[address] [place] [address] 10728 Eosinophils/100 WBC (Bld) 0.4 % Normal 0.0 - 7.0 [facility] Comment on above: Performed By: #### 2 18603 ####[facility],[address] [place] [address] 92916 Erythrocyte distribution width (RBC) [Ratio] 13.8 % Normal 12.0 - 15.6 [facility] Comment on above: Performed By: #### 2 57955 ####[facility],[address] [place] [address] 09685 Hematocrit (Bld) [Volume fraction] 46.7 % High 34.0 - 46.0 [facility] Comment on above: Performed By: #### 2 21642 ####[facility],[address] [place] [address] 07542 Hemoglobin (Bld) [Mass/Vol] 16.1 g/dL High 12.0 - 16.0 [facility] Comment on above: Performed By: #### 2 73284 ####[facility],[address] [place] [address] Lymph # 0.89 x10EE3/UL Normal 0.80 - 2.80 [facility] Comment on above: Performed By: #### 2 49065 ####[facility],[address] [place] [address] Lymphocytes/100 WBC (Bld) 7.1 % Low 20.0 - 45.0 [facility] Comment on above: Performed By: #### 2 66404 ####[facility],[address] [place], [place] [id number] MANUAL DIFF N/A Normal [facility] Comment on above: Performed By: #### 2 62823 ####[facility],[address] [place] [address] MCH (RBC) [Entitic mass] 30 pg Normal 27 - 33 [facility] Comment on above: Performed By: #### 2 98688 ####[facility],[address] [place] [address] 62501 MCHC 34 X10 3 Normal 32 - 36 [facility] Comment on above: Performed By: #### 2 79674 ####[facility],[address] [place] [address] 28718 MCV (RBC) [Entitic vol] 86 fL Normal 80 - 99 [facility] Comment on above: Performed By: #### 2 34116 ####[facility],[address] [place] [address] 94139 Merrick # 0.68 x10EE3/UL Normal 0.20 - 1.00 [facility] Comment on above: Performed By: #### 2 71310 ####[facility],[address] [place] [address] 15821 MONOS % 5.4 % Normal 0.0 - 10.0 [facility] Comment on above: Performed By: #### 2 94618 ####[facility],[address] [place] [address] 88005 Morphology Julian (Bld) [Interp] N/A Normal [facility] Comment on above: Performed By: #### 2 85616 ####[facility],[address] [place] [address] 73436 Neut # 10.88 x10EE3/UL High 1.50 - 7.10 [facility] Comment on above: Performed By: #### 2 54201 ####[facility],[address] [place] [address] 51840 Neutrophils/100 WBC (Bld) 86.8 % High 46.0 - 76.0 [facility] Comment on above: Performed By: #### 2 67501 ####[facility],[address] [place] [address] 98824 PLATELET 332 x10EE3/UL Normal 150 - 450 [facility] Comment on above: Performed By: #### 2 57854 ####[facility],[address] [place] [address] 69829 Platelet mean volume (Bld) [Entitic vol] 7.7 fL Normal 6.6 - 10.5 [facility] Comment on above: Result Comment: AUTO MATED DIFFERENTIAL Performed By: #### 2 26304 ####[facility],[address] [place] [address] 06656 RBC 5.43 x 10EE6/UL High 4.10 - 5.30 [facility] Comment on above: Performed By: #### 2 85589 ####[facility],[address] [place] [address] 19672 WBC 12.5 x 10EE3/UL High 4.5 - 10.8 [facility] Comment on above: Performed By: #### 2 09236 ####[facility],[address] [place] [address] 56376 CMP with eGFRon 07-20-2024 AGE 74 years Normal [facility] Comment on above: Performed By: #### 2 86874 ####[facility],[address] [place], [place] [phone] Albumin [Mass/Vol] 4.4 g/dL Normal 3.4 - 5.0 [facility] Comment on above: Performed By: #### 2 36119 ####[facility],[address] [place] [address] Albumin/Globulin [Mass ratio] 1.0 {ratio} Normal 0.9 - 1.6 [facility] Comment on above: Performed By: #### 2 85971 ####[facility],[address] [place], [place] [phone] ALK PHOS 107 U/L Normal 46 - 116 [facility] Comment on above: Performed By: #### 2 37899 ####[facility],[address] [place] [address] 09390 ALT [Catalytic activity/Vol] 24 U/L Normal 16 - 63 [facility] Comment on above: Performed By: #### 2 43613 ####[facility],[address] [place] [address] 47303 Anion gap [Moles/Vol] 22 mmol/L High 10 - 20 [facility] Comment on above: Performed By: #### 2 89586 ####[address] [address] AST [Catalytic activity/Vol] 26 U/L Normal 13 - 39 [facility] Comment on above: Performed By: #### 2 22294 ####[facility],[address] [place] [address] 16188 B/C RATIO 14 ratio Normal 0 - 30 [facility] Comment on above: Performed By: #### 2 17082 ####[facility],[address] [place] [address] 77797 Bilirubin [Mass/Vol] 0.7 mg/dL Normal 0.2 - 1.0 [facility] Comment on above: Performed By: #### 2 32240 ####[facility],[address] [place] [address] 09911 Calcium [Mass/Vol] 9.5 mg/dL Normal 8.5 - 10.1 [facility] Comment on above: Performed By: #### 2 40518 ####[facility],[address] [place] [address] 90997 Chloride [Moles/Vol] 97 mmol/L Low 98 - 107 [facility] Comment on above: Performed By: #### 2 96159 ####[facility],[address] [place], [place] [phone] CMP with eGFR Normal [facility] Comment on above: Result Comment: COMP REHENSIVE METABOLIC PANEL Performed By: #### 2 55547 ####[facility],[address] [place] [address] 85610 CO2 [Moles/Vol] 25.1 mmol/L Normal 21.0 - 32.0 [facility] Comment on above: Performed By: #### 2 89741 ####[facility],[address] [place] [address] 79579 Creatinine [Mass/Vol] 1.62 mg/dL High 0.55 - 1.02 [facility] Comment on above: Performed By: #### 2 96195 ####[facility],[address] [place] [address] 20363 eGFR 31 ML/MINUTE Low 60 - 999 [facility] Comment on above: Performed By: #### 2 35664 ####[facility],[address] [place] [address] 44454 eGFR(AA) 38 ML/MINUTE Low 60 - 999 [facility] Comment on above: Result Comment: ACCO RDING TO THE NATIONAL KIDNEY DISEASE EDUCATION PROGRAM(NKDE), A NORMAL eGFRIS A VALUE GREATER THAN OR EQUAL TO 60 ML/MIN/1.73 SQ METERS.CHRONIC KIDNEY DISEASE: <60mL/MIN/1.73 SQ METERSKIDNEY FAILURE: <15mL/MIN/1.73 SQ METERSTHIS TEST SHOULD ONLY BE USED FOR PATIENTS 18 YEARS OF AGE AND OLDER. Performed By: #### 2 31680 ####[facility],[address] [place] [address] 13623 Globulin (S) [Mass/Vol] 4.3 g/dL High 1.5 - 3.8 [facility] Comment on above: Performed By: #### 2 38826 ####[facility],[address] [place] [address] 96770 Glucose [Mass/Vol] 163 mg/dL High 74 - 106 [facility] Comment on above: Performed By: #### 2 05151 ####[facility],[address] [place] [address] 64722 Potassium [Moles/Vol] 3.9 mmol/L Normal 3.5 - 5.1 [facility] Comment on above: Performed By: #### 2 56886 ####[facility],[address] [place] [address] 93735 Protein [Mass/Vol] 8.7 g/dL High 6.4 - 8.2 [facility] Comment on above: Performed By: #### 2 78972 ####[facility],[address] [place] [address] 85158 Sodium [Moles/Vol] 140 mmol/L Normal 136 - 145 [facility] Comment on above: Performed By: #### 2 13180 ####[facility],[address] [place] [address] 33229 Urea nitrogen [Mass/Vol] 23 mg/dL High 7 - 18 [facility] Comment on above: Performed By: #### 2 55189 ####[facility],[address] [place] [address] ED MED ADMINISTRATION DETAIL on 07-20-2024 ED MED ADMINISTRATION DETAIL Normal [facility] ED NURSES CLINICAL NOTEon ED NURSES CLINICAL NOTE Normal [facility] ED ORDER SHEET (CPOE ONLY)on 07-20-2024 ED ORDER SHEET (CPOE ONLY) Normal [facility] ED PHYSICIAN CLINICAL REPORT on 07-20-2024 ED PHYSICIAN CLINICAL REPORT Normal [facility] ED PHYSICIAN DISCHARGE REPOR Ton 07-20-2024 ED PHYSICIAN DISCHARGE REPORT Normal [facility] ED SUPER BILLon 07-20-2024 ED SUPER BILL Normal [facility] ED VISIT SUMMARYon ED VISIT SUMMARY Normal [facility] ED VITALS FLOW SHEETon 07-20 ED VITALS FLOW SHEET Normal [facility] LACTATEon 07-20-2024 Lactate [Moles/Vol] 1.8 mmol/L Normal 0.4 - 2.0 [facility] Comment on above: Performed By: #### 2 81562 ####[facility],[address] [place] [address] Lactate [Moles/Vol] 4.2 mmol/L Critically high 0.4 - 2.0 [facility] Comment on above: Result Comment: { CA LLED TO LILLIE MOSLEY BY LMM @ 1714{ READ BACK BY LILLIE MOSLEY RA 1713 LACTATE 3 HR NOTIFIED TO: _KC 07/20/24.1712.LMM. . . LACTATE 3 HR NOTIFIED BY: _DANIELLE 07/20/24.1712.LMM. . . Performed By: #### 2 65202 ####[facility],[address] [place] [address] 00313 LIPASEon 07-20-2024 Lipase [Catalytic activity/Vol] 52.0 U/L Normal 15.0 - 78.0 [facility] Comment on above: Result Comment: *PLE ASE NOTE THAT RANGES FOR LIPASE HAVE CHANGED OF 04/12/23 DUE TO AN ASSAYUPDATE BY THE PARTS COORDINATOR.THE NEW ASSAY RANGE IS 6-250 U/L, WITH A REFERENCERANGE OF 16-77 U/L. Performed By: #### 2 40023 ####[facility],[address] [place] [address] 38932 T3, FREE [CCL]on 07-11-2024 Free T3 [Mass/Vol] 2.9 pg/mL Normal 2.3-4.1 [facility] Comment on above: Result Comment: [facility] [place], [place] [address]JnmhubAri Ray III, M.D.[id number] Performed By: #### 2 24157 ####[address] [address] T4, FREE [CCL]on 07-11-2024 Free T4 [Mass/Vol] 1.6 ng/dL Normal 0.9-1.7 [facility] Comment on above: Result Comment: [facility] [place], [place] [address]WkwzeyAri Ray III, M.D.[id number] Performed By: #### 2 44039 ####[address] [address] CBC + DIFFon 07-10-2024 Baso # 0.03 x10EE3/UL Normal 0.00 - 0.10 [facility] Comment on above: Performed By: #### 2 66556 ####[address] [address]28 Basophils/100 WBC (Bld) 0.8 % Normal 0.0 - 2.0 [facility] Comment on above: Performed By: #### 2 75759 ####[facility],[address] [place] [address] 74354 CBC + DIFF Normal [facility] Comment on above: Result Comment: CBC- COMPLETE BLOOD COUNT Performed By: #### 2 33965 ####[facility],[address] [place] [address] 81132 EO # 0.17 x10EE3/UL Normal 0.00 - 0.50 [facility] Comment on above: Performed By: #### 2 90367 ####[facility],[address] [place] [address] 32668 Eosinophils/100 WBC (Bld) 3.8 % Normal 0.0 - 7.0 [facility] Comment on above: Performed By: #### 2 50564 ####[facility] [facility],[address] [place] [address] Erythrocyte distribution width (RBC) [Ratio] 13.9 % Normal 12.0 - 15.6 [facility] Comment on above: Performed By: #### 2 72346 ####[facility],[address] [place], [place] [id number] Hematocrit (Bld) [Volume fraction] 40.6 % Normal 34.0 - 46.0 [facility] Comment on above: Performed By: #### 2 50631 ####[facility],[address] [place], [place] [id number] Hemoglobin (Bld) [Mass/Vol] 13.8 g/dL Normal 12.0 - 16.0 [facility] Comment on above: Performed By: #### 2 22480 ####[facility],[address] [place] [address] 17731 Lymph # 1.31 x10EE3/UL Normal 0.80 - 2.80 [facility] Comment on above: Performed By: #### 2 41428 ####[facility],[address],[place] [address] Lymphocytes/100 WBC (Bld) 28.7 % Normal 20.0 - 45.0 [facility] Comment on above: Performed By: #### 2 11287 ####[facility],[address] [place] [address] MANUAL DIFF N/A Normal [facility] Comment on above: Performed By: #### 2 61669 ####[facility],[address] [place] [address] MCH (RBC) [Entitic mass] 30 pg Normal 27 - 33 [facility] Comment on above: Performed By: #### 2 17749 ####[facility],[address] [place] [address] MCHC 34 X10 3 Normal 32 - 36 [facility] Comment on above: Performed By: #### 2 85486 ####[facility],[address] [place] [address] MCV (RBC) [Entitic vol] 87 fL Normal 80 - 99 [facility] Comment on above: Performed By: #### 2 32192 ####[facility],[address] [place] [address] Merrick # 0.41 x10EE3/UL Normal 0.20 - 1.00 [facility] Comment on above: Performed By: #### 2 16942 ####[facility],[address] [place] [address] MONOS % 9.0 % Normal 0.0 - 10.0 [facility] Comment on above: Performed By: #### 2 38329 ####[address] [address] Morphology Julian (Bld) [Interp] N/A Normal [facility] Comment on above: Performed By: #### 2 71657 ####[facility],[address] [place] [address] Neut # 2.63 x10EE3/UL Normal 1.50 - 7.10 [facility] Comment on above: Performed By: #### 2 92500 ####[facility],[address] [place] [address] 36238 Neutrophils/100 WBC (Bld) 57.7 % Normal 46.0 - 76.0 [facility] Comment on above: Performed By: #### 2 77578 ####[facility],[address] [place] [address] 06001 PLATELET 254 x10EE3/UL Normal 150 - 450 [facility] Comment on above: Performed By: #### 2 03354 ####[facility],[address] [place], [place] [phone] Platelet mean volume (Bld) [Entitic vol] 8.2 fL Normal 6.6 - 10.5 [facility] Comment on above: Result Comment: AUTO MATED DIFFERENTIAL Performed By: #### 2 53102 ####[facility],[address] [place], [place] [phone] RBC 4.66 x 10EE6/UL Normal 4.10 - 5.30 [facility] Comment on above: Performed By: #### 2 89872 ####[facility],[address] [place], [place] [phone] WBC 4.6 x 10EE3/UL Normal 4.5 - 10.8 [facility] Comment on above: Performed By: #### 2 81244 ####[facility],[address] [place] [address] 34647 CMP with eGFRon 07-10-2024 AGE 74 years Normal [facility] Comment on above: Performed By: #### 2 10973 ####[address] [address] Albumin [Mass/Vol] 3.8 g/dL Normal 3.4 - 5.0 [facility] Comment on above: Performed By: #### 2 92056 ####[facility],[address],[place] [address] Albumin/Globulin [Mass ratio] 1.0 {ratio} Normal 0.9 - 1.6 [facility] Comment on above: Performed By: #### 2 10218 ####[facility],[address] [place] [address] 93118 ALK PHOS 93 U/L Normal 46 - 116 [facility] Comment on above: Performed By: #### 2 85609 ####[facility],[address] [place] [address] 15792 ALT [Catalytic activity/Vol] 19 U/L Normal 16 - 63 [facility] Comment on above: Performed By: #### 2 33380 ####[facility],[address] [place] [address] 41115 Anion gap [Moles/Vol] 12 mmol/L Normal 10 - 20 [facility] Comment on above: Performed By: #### 2 29905 ####[facility],[address] [place] [address] 87913 AST [Catalytic activity/Vol] 16 U/L Normal 13 - 39 [facility] Comment on above: Performed By: #### 2 23771 ####[facility],[address] [place] [address] 10620 B/C RATIO 17 ratio Normal 0 - 30 [facility] Comment on above: Performed By: #### 2 31548 ####[facility],[address] [place] [address] 57435 Bilirubin [Mass/Vol] 0.4 mg/dL Normal 0.2 - 1.0 [facility] Comment on above: Performed By: #### 2 60551 ####[facility],[address] [place] [address] 38258 Calcium [Mass/Vol] 9.2 mg/dL Normal 8.5 - 10.1 [facility] Comment on above: Performed By: #### 2 72596 ####[facility],[address] [place] [address] 81474 Chloride [Moles/Vol] 104 mmol/L Normal 98 - 107 [facility] Comment on above: Performed By: #### 2 71593 ####[facility],[address] [place] [address] 30726 CMP with eGFR Normal [facility] Comment on above: Result Comment: COMP REHENSIVE METABOLIC PANEL Performed By: #### 2 06012 ####[facility],[address] [place] [address] 20604 CO2 [Moles/Vol] 27.9 mmol/L Normal 21.0 - 32.0 [facility] Comment on above: Performed By: #### 2 14108 ####[facility],[address] [place] [address] Creatinine [Mass/Vol] 0.93 mg/dL Normal 0.55 - 1.02 [facility] Comment on above: Performed By: #### 2 07268 ####[facility],[address] [place] [address] 73495 eGFR 59 ML/MINUTE Low 60 - 999 [facility] Comment on above: Performed By: #### 2 48618 ####[facility],[address] [place] [address] 47133 GFR/1.73 sq M.predicted among non-blacks MDRD (S/P/Bld) [Vol rate/Area] mL/min/{1.73_m2} Normal 60 - 999 [facility] Comment on above: Result Comment: ACCO RDING TO THE NATIONAL KIDNEY DISEASE EDUCATION PROGRAM(NKDE), A NORMAL eGFRIS A VALUE GREATER THAN OR EQUAL TO 60 ML/MIN/1.73 SQ METERS.CHRONIC KIDNEY DISEASE: <60mL/MIN/1.73 SQ METERSKIDNEY FAILURE: <15mL/MIN/1.73 SQ METERSTHIS TEST SHOULD ONLY BE USED FOR PATIENTS 18 YEARS OF AGE AND OLDER. Performed By: #### 2 56263 ####[facility],[address] [place] [address] 76858 Globulin (S) [Mass/Vol] 3.7 g/dL Normal 1.5 - 3.8 [facility] Comment on above: Performed By: #### 2 10160 ####[facility],[address] [place] [address] 98889 Glucose [Mass/Vol] 81 mg/dL Normal 74 - 106 [facility] Comment on above: Performed By: #### 2 66341 ####[facility],[address] [place] [address] 27385 Potassium [Moles/Vol] 4.2 mmol/L Normal 3.5 - 5.1 [facility] Comment on above: Performed By: #### 2 47826 ####[facility],[address] [place] [address] 65514 Protein [Mass/Vol] 7.5 g/dL Normal 6.4 - 8.2 [facility] Comment on above: Performed By: #### 2 21856 ####[facility],[address] [place] [address] 89244 Sodium [Moles/Vol] 140 mmol/L Normal 136 - 145 [facility] Comment on above: Performed By: #### 2 61799 ####[facility],[address] [place] [address] 76543 Urea nitrogen [Mass/Vol] 16 mg/dL Normal 7 - 18 [facility] Comment on above: Performed By: #### 2 87921 ####[facility],[address] [place] [address] 51485 LIPID PROFILEon 07-10-2024 Cholesterol [Mass/Vol] 315 mg/dL High 0 - 240 [facility] Comment on above: Performed By: #### 2 20274 ####[facility],[address] [place] [address] 93223 Cholesterol in HDL [Mass/Vol] 65 mg/dL High 40 - 60 [facility] Comment on above: Performed By: #### 2 87002 ####[facility],[address] [place] [address] 21348 Cholesterol in LDL [Mass/Vol] 225 mg/dL High 0 - 129 [facility] Comment on above: Performed By: #### 2 53242 ####[facility],[address] [place] [address] 65505 Cholesterol.total/Dottie sterol in HDL [Mass ratio] 4.8 {ratio} Normal 0.0 - 5.0 [facility] Comment on above: Performed By: #### 2 26455 ####[facility],[address] [place] [address] 94450 Lipid 1996 panel Normal [facility] Comment on above: Result Comment: LIPI D PROFILE Performed By: #### 2 04362 ####[facility],[address] [place] [address] 34679 Triglyceride [Mass/Vol] 127 mg/dL Normal 0 - 150 [facility] Comment on above: Performed By: #### 2 12503 ####[facility],[address] [place] [address] 13796 T3Free SerPl-mCncon 07-11-19 25 Free T3 [Mass/Vol] 2.9 pg/mL Normal 2.3-4.1 [facility] Comment on above: Order Comment: Speci men Type: BLOOD SPECIMEN Ordering Facility: [facility] Address: [address] [place] [address] Performed By: #### 3 051-0 #### [facility] CLIA [id number] [address] [place] [address] [place] T4 Free SerPl-mCncon 025 Free T4 [Mass/Vol] 1.6 ng/dL Normal 0.9-1.7 [facility] Comment on above: Order Comment: Speci men Type: BLOOD SPECIMEN Ordering Facility: [facility] Address: [address] [place] [address] Performed By: #### 3 024-7 #### [facility] CLIA [id number] [address] [place] [address] [place] TSHon 07-10-2024 TSH Qn 1.29 m[IU]/L Normal 0.35 - 3.74 [facility] Comment on above: Performed By: #### 2 98442 ####[facility],[address] [place] [address] 08853 CBC + DIFFon 07-01-2024 Baso # 0.03 x10EE3/UL Normal 0.00 - 0.10 [facility] Comment on above: Performed By: #### 2 10454 ####[facility],[address] [place] [address] 48124 Basophils/100 WBC (Bld) 0.3 % Normal 0.0 - 2.0 [facility] Comment on above: Performed By: #### 2 49721 ####[facility],[address] [place] [address] 85604 CBC + DIFF Normal [facility] Comment on above: Result Comment: CBC- COMPLETE BLOOD COUNT Performed By: #### 2 53367 ####[facility],[address] [place] [address] 91365 EO # 0.11 x10EE3/UL Normal 0.00 - 0.50 [facility] Comment on above: Performed By: #### 2 91916 ####[facility],[address] [place] [address] 80771 Eosinophils/100 WBC (Bld) 1.3 % Normal 0.0 - 7.0 [facility] Comment on above: Performed By: #### 2 38062 ####[facility],[address] [place] [address] 66678 Erythrocyte distribution width (RBC) [Ratio] 13.4 % Normal 12.0 - 15.6 [facility] Comment on above: Performed By: #### 2 94626 ####[address],[place] [address] Hematocrit (Bld) [Volume fraction] 47.0 % High 34.0 - 46.0 [facility] Comment on above: Performed By: #### 2 70732 ####[facility],[address] [place] [address] 58992 Hemoglobin (Bld) [Mass/Vol] 15.9 g/dL Normal 12.0 - 16.0 [facility] Comment on above: Performed By: #### 2 01101 ####[facility],[address] [place], [place] [phone] Lymph # 1.17 x10EE3/UL Normal 0.80 - 2.80 [facility] Comment on above: Performed By: #### 2 20343 ####[facility],[address] [place], [place] [address] Lymphocytes/100 WBC (Bld) 14.0 % Low 20.0 - 45.0 [facility] Comment on above: Performed By: #### 2 02155 ####[facility],[address] [place] [address] 15517 MANUAL DIFF N/A Normal [facility] Comment on above: Performed By: #### 2 23576 ####[facility],[address] [place] [address] 09654 MCH (RBC) [Entitic mass] 29 pg Normal 27 - 33 [facility] Comment on above: Performed By: #### 2 54000 ####[facility],[address] [place] [address] 25843 MCHC 34 X10 3 Normal 32 - 36 [facility] Comment on above: Performed By: #### 2 16854 ####[facility],[address] [place] [address] 64760 MCV (RBC) [Entitic vol] 87 fL Normal 80 - 99 [facility] Comment on above: Performed By: #### 2 66478 ####[facility],[address] [place] [address] 07595 Merrick # 0.48 x10EE3/UL Normal 0.20 - 1.00 [facility] Comment on above: Performed By: #### 2 06756 ####[facility],[address] [place] [address] 25505 MONOS % 5.7 % Normal 0.0 - 10.0 [facility] Comment on above: Performed By: #### 2 61205 ####[facility],[address] [place] [address] 23193 Morphology Julian (Bld) [Interp] N/A Normal [facility] Comment on above: Performed By: #### 2 77829 ####[facility],[address] [place] [address] 64448 Neut # 6.61 x10EE3/UL Normal 1.50 - 7.10 [facility] Comment on above: Performed By: #### 2 68827 ####[facility],[address] [place] [address] 40960 Neutrophils/100 WBC (Bld) 78.7 % High 46.0 - 76.0 [facility] Comment on above: Performed By: #### 2 11156 ####[facility],[address] [place] [address] 56526 PLATELET 326 x10EE3/UL Normal 150 - 450 [facility] Comment on above: Performed By: #### 2 11546 ####[facility],[address] [place] [address] 08317 Platelet mean volume (Bld) [Entitic vol] 7.7 fL Normal 6.6 - 10.5 [facility] Comment on above: Result Comment: AUTO MATED DIFFERENTIAL Performed By: #### 2 89364 ####[facility],[address] [place] [address] 77260 RBC 5.43 x 10EE6/UL High 4.10 - 5.30 [facility] Comment on above: Performed By: #### 2 51862 ####[facility],[address] [place] [address] 44154 WBC 8.4 x 10EE3/UL Normal 4.5 - 10.8 [facility] Comment on above: Performed By: #### 2 94799 ####[facility],[address] [place] [address] 01123 CMP with eGFRon 07-01-2024 AGE 74 years Normal [facility] Comment on above: Performed By: #### 2 34607 ####[facility],[address] [place] [address] 64511 Albumin [Mass/Vol] 4.8 g/dL Normal 3.4 - 5.0 [facility] Comment on above: Performed By: #### 2 63610 ####[facility],[address] [place] [address] 36809 Albumin/Globulin [Mass ratio] 1.2 {ratio} Normal 0.9 - 1.6 [facility] Comment on above: Performed By: #### 2 00658 ####[facility],[address] [place] [address] 62670 ALK PHOS 108 U/L Normal 46 - 116 [facility] Comment on above: Performed By: #### 2 05479 ####[facility],[address] [place] [address] 65635 ALT [Catalytic activity/Vol] 24 U/L Normal 16 - 63 [facility] Comment on above: Performed By: #### 2 35773 ####[facility],[address] [place] [address] 17752 Anion gap [Moles/Vol] 17 mmol/L Normal 10 - 20 [facility] Comment on above: Performed By: #### 2 45529 ####[facility],[address] [place] [address] 87142 AST [Catalytic activity/Vol] 22 U/L Normal 13 - 39 [facility] Comment on above: Performed By: #### 2 82803 ####[facility],[address] [place] [address] 15613 B/C RATIO 11 ratio Normal 0 - 30 [facility] Comment on above: Performed By: #### 2 53234 ####[facility],[address] [place] [address] 13492 Bilirubin [Mass/Vol] 0.6 mg/dL Normal 0.2 - 1.0 [facility] Comment on above: Performed By: #### 2 22127 ####[facility],[address] [place] [address] 97856 Calcium [Mass/Vol] 10.3 mg/dL High 8.5 - 10.1 [facility] Comment on above: Performed By: #### 2 64847 ####[facility],[address] [place] [address] 38890 Chloride [Moles/Vol] 96 mmol/L Low 98 - 107 [facility] Comment on above: Performed By: #### 2 74122 ####[facility],[address] [place] [address] 89418 CMP with eGFR Normal [facility] Comment on above: Result Comment: COMP REHENSIVE METABOLIC PANEL Performed By: #### 2 83487 ####[facility],[address] [place] [address] 39673 CO2 [Moles/Vol] 28.5 mmol/L Normal 21.0 - 32.0 [facility] Comment on above: Performed By: #### 2 19198 ####[facility],[address] [place] [address] 19638 Creatinine [Mass/Vol] 1.78 mg/dL High 0.55 - 1.02 [facility] Comment on above: Performed By: #### 2 98787 ####[facility],[address] [place] [address] 32046 eGFR 28 ML/MINUTE Low 60 - 999 [facility] Comment on above: Performed By: #### 2 73970 ####[facility],[address] [place] [address] 47513 eGFR(AA) 34 ML/MINUTE Low 60 - 999 [facility] Comment on above: Result Comment: ACCO RDING TO THE NATIONAL KIDNEY DISEASE EDUCATION PROGRAM(NKDE), A NORMAL eGFRIS A VALUE GREATER THAN OR EQUAL TO 60 ML/MIN/1.73 SQ METERS.CHRONIC KIDNEY DISEASE: <60mL/MIN/1.73 SQ METERSKIDNEY FAILURE: <15mL/MIN/1.73 SQ METERSTHIS TEST SHOULD ONLY BE USED FOR PATIENTS 18 YEARS OF AGE AND OLDER. Performed By: #### 2 69991 ####[facility],[address] [place] [address] 39488 Globulin (S) [Mass/Vol] 4.1 g/dL High 1.5 - 3.8 [facility] Comment on above: Performed By: #### 2 60347 ####[facility],[address] [place] [address] 91430 Glucose [Mass/Vol] 178 mg/dL High 74 - 106 [facility] Comment on above: Performed By: #### 2 34720 ####[facility],[address] [place] [address] 73473 Potassium [Moles/Vol] 3.2 mmol/L Low 3.5 - 5.1 [facility] Comment on above: Performed By: #### 2 98562 ####[facility],[address] [place] [address] 73445 Protein [Mass/Vol] 8.9 g/dL High 6.4 - 8.2 [facility] Comment on above: Performed By: #### 2 58528 ####[facility],[address] [place] [address] 86322 Sodium [Moles/Vol] 138 mmol/L Normal 136 - 145 [facility] Comment on above: Performed By: #### 2 68697 ####[facility],[address] [place], [place] [phone] Urea nitrogen [Mass/Vol] 20 mg/dL High 7 - 18 [facility] Comment on above: Performed By: #### 2 99679 ####[facility],[address] [place], [place] [id number] ED MED ADMINISTRATION DETAIL on 07-01-2024 ED MED ADMINISTRATION DETAIL Normal [facility] ED NURSES CLINICAL NOTEon ED NURSES CLINICAL NOTE Normal [facility] ED ORDER SHEET (CPOE ONLY)on 07-01-2024 ED ORDER SHEET (CPOE ONLY) Normal [facility] ED PHYSICIAN CLINICAL REPORT on 07-01-2024 ED PHYSICIAN CLINICAL REPORT Normal [facility] ED PHYSICIAN DISCHARGE REPOR Ton 07-01-2024 ED PHYSICIAN DISCHARGE REPORT Normal [facility] ED SUPER BILLon 07-01-2024 ED SUPER BILL Normal [facility] ED VISIT SUMMARYon 5 ED VISIT SUMMARY Normal [facility] ED VITALS FLOW SHEETon 07-01 ED VITALS FLOW SHEET Normal [facility] ED MED ADMINISTRATION DETAIL on 05-26-2024 ED MED ADMINISTRATION DETAIL Normal [facility] ED NURSES CLINICAL NOTEon ED NURSES CLINICAL NOTE Normal [facility] ED ORDER SHEET (CPOE ONLY)on 05-26-2024 ED ORDER SHEET (CPOE ONLY) Normal [facility] ED PHYSICIAN CLINICAL REPORT on 05-26-2024 ED PHYSICIAN CLINICAL REPORT Normal [facility] ED PHYSICIAN DISCHARGE REPOR Ton 05-26-2024 ED PHYSICIAN DISCHARGE REPORT Normal [facility] ED SUPER BILLon 05-26-2024 ED SUPER BILL Normal [facility] ED VISIT SUMMARYon ED VISIT SUMMARY Normal [facility] ED VITALS FLOW SHEETon 05-26 ED VITALS FLOW SHEET Normal [facility] CBC + DIFFon 05-20-2024 Baso # 0.03 x10EE3/UL Normal 0.00 - 0.10 [facility] Comment on above: Performed By: #### 2 96869 ####[facility],[address] [place] [address] Basophils/100 WBC (Bld) 0.4 % Normal 0.0 - 2.0 [facility] Comment on above: Performed By: #### 2 88353 ####[facility],[address] [place] [address] CBC + DIFF Normal [facility] Comment on above: Result Comment: CBC- COMPLETE BLOOD COUNT Performed By: #### 2 63865 ####[facility],[address] [place] [address] EO # 0.05 x10EE3/UL Normal 0.00 - 0.50 [facility] Comment on above: Performed By: #### 2 36694 ####[place] [address] Eosinophils/100 WBC (Bld) 0.7 % Normal 0.0 - 7.0 [facility] Comment on above: Performed By: #### 2 45824 ####[facility],[address] [place] [address] Erythrocyte distribution width (RBC) [Ratio] 13.9 % Normal 12.0 - 15.6 [facility] Comment on above: Performed By: #### 2 75198 ####[facility],[address] [place] [address] Hematocrit (Bld) [Volume fraction] 48.2 % High 34.0 - 46.0 [facility] Comment on above: Performed By: #### 2 82338 ####[facility],[address] [place] [address] Hemoglobin (Bld) [Mass/Vol] 16.3 g/dL High 12.0 - 16.0 [facility] Comment on above: Performed By: #### 2 49744 ####[facility],[address] [place] [address] Lymph # 0.76 x10EE3/UL Low 0.80 - 2.80 [facility] Comment on above: Performed By: #### 2 05549 ####[facility],[address] [place] [address] Lymphocytes/100 WBC (Bld) 10.0 % Low 20.0 - 45.0 [facility] Comment on above: Performed By: #### 2 05266 ####[facility],[address] [place] [address] MANUAL DIFF N/A Normal [facility] Comment on above: Performed By: #### 2 06565 ####[place] [address] MCH (RBC) [Entitic mass] 29 pg Normal 27 - 33 [facility] Comment on above: Performed By: #### 2 82782 ####[place] [address] MCHC 34 X10 3 Normal 32 - 36 [facility] Comment on above: Performed By: #### 2 76798 ####[place] [address] MCV (RBC) [Entitic vol] 86 fL Normal 80 - 99 [facility] Comment on above: Performed By: #### 2 27808 ####[facility],[address] [place] [address] Merrick # 0.45 x10EE3/UL Normal 0.20 - 1.00 [facility] Comment on above: Performed By: #### 2 90181 ####[place] [address] MONOS % 5.9 % Normal 0.0 - 10.0 [facility] Comment on above: Performed By: #### 2 64987 ####[facility],[address] [place] [address] Morphology Julian (Bld) [Interp] N/A Normal [facility] Comment on above: Performed By: #### 2 47282 ####[facility],[address] [place] [address] 46786 Neut # 6.33 x10EE3/UL Normal 1.50 - 7.10 [facility] Comment on above: Performed By: #### 2 13159 ####[facility],[address] [place] [address] Neutrophils/100 WBC (Bld) 83.1 % High 46.0 - 76.0 [facility] Comment on above: Performed By: #### 2 89757 ####[facility],[address] [place] [address] PLATELET 337 x10EE3/UL Normal 150 - 450 [facility] Comment on above: Performed By: #### 2 44626 ####[facility],[address] [place] [address] Platelet mean volume (Bld) [Entitic vol] 8.1 fL Normal 6.6 - 10.5 [facility] Comment on above: Result Comment: AUTO MATED DIFFERENTIAL Performed By: #### 2 27713 ####[facility],[address] [place] [address] RBC 5.61 x 10EE6/UL High 4.10 - 5.30 [facility] Comment on above: Performed By: #### 2 16451 ####[facility],[address] [place], [place] [id number] WBC 7.6 x 10EE3/UL Normal 4.5 - 10.8 [facility] Comment on above: Performed By: #### 2 35180 ####[facility],[address] [place] [address] CMP with eGFRon 05-20-2024 AGE 74 years Normal [facility] Comment on above: Performed By: #### 2 03387 ####[facility],[address] [place] [address] 87491 Albumin [Mass/Vol] 4.3 g/dL Normal 3.4 - 5.0 [facility] Comment on above: Performed By: #### 2 29402 ####[facility],[address] [place] [address] 56529 Albumin/Globulin [Mass ratio] 1.0 {ratio} Normal 0.9 - 1.6 [facility] Comment on above: Performed By: #### 2 14209 ####[facility],[address] [place] [address] 58995 ALK PHOS 95 U/L Normal 46 - 116 [facility] Comment on above: Performed By: #### 2 07828 ####[facility],[address] [place] [address] 13700 ALT [Catalytic activity/Vol] 21 U/L Normal 16 - 63 [facility] Comment on above: Performed By: #### 2 47406 ####[facility],[address] [place] [address] 93268 Anion gap [Moles/Vol] 18 mmol/L Normal 10 - 20 [facility] Comment on above: Performed By: #### 2 26445 ####[facility],[address] [place] [address] 13030 AST [Catalytic activity/Vol] 16 U/L Normal 13 - 39 [facility] Comment on above: Performed By: #### 2 94105 ####[facility],[address] [place] [address] 09234 B/C RATIO 17 ratio Normal 0 - 30 [facility] Comment on above: Performed By: #### 2 20573 ####[facility],[address] [place] [address] 48074 Bilirubin [Mass/Vol] 0.6 mg/dL Normal 0.2 - 1.0 [facility] Comment on above: Performed By: #### 2 78479 ####[facility],[address] [place] [address] 77989 Calcium [Mass/Vol] 10.2 mg/dL High 8.5 - 10.1 [facility] Comment on above: Performed By: #### 2 47908 ####[facility],[address] [place] [address] 87816 Chloride [Moles/Vol] 96 mmol/L Low 98 - 107 [facility] Comment on above: Performed By: #### 2 07725 ####[facility],[address] [place] [address] 91858 CMP with eGFR Normal [facility] Comment on above: Result Comment: COMP REHENSIVE METABOLIC PANEL Performed By: #### 2 70515 ####[facility],[address] [place] [address] 98009 CO2 [Moles/Vol] 31.5 mmol/L Normal 21.0 - 32.0 [facility] Comment on above: Performed By: #### 2 96077 ####[facility],[address] [place] [address] 65042 Creatinine [Mass/Vol] 1.44 mg/dL High 0.55 - 1.02 [facility] Comment on above: Performed By: #### 2 46849 ####[facility],[address] [place] [address] 13071 eGFR 36 ML/MINUTE Low 60 - 999 [facility] Comment on above: Performed By: #### 2 88589 ####[facility],[address] [place] [address] 14097 eGFR(AA) 43 ML/MINUTE Low 60 - 999 [facility] Comment on above: Result Comment: ACCO RDING TO THE NATIONAL KIDNEY DISEASE EDUCATION PROGRAM(NKDE), A NORMAL eGFRIS A VALUE GREATER THAN OR EQUAL TO 60 ML/MIN/1.73 SQ METERS.CHRONIC KIDNEY DISEASE: <60mL/MIN/1.73 SQ METERSKIDNEY FAILURE: <15mL/MIN/1.73 SQ METERSTHIS TEST SHOULD ONLY BE USED FOR PATIENTS 18 YEARS OF AGE AND OLDER. Performed By: #### 2 39187 ####[facility],[address] [place] [address] 83880 Globulin (S) [Mass/Vol] 4.4 g/dL High 1.5 - 3.8 [facility] Comment on above: Performed By: #### 2 71555 ####[facility],[address] [place] [address] 42263 Glucose [Mass/Vol] 152 mg/dL High 74 - 106 [facility] Comment on above: Performed By: #### 2 72905 ####[facility],[address] [place] [address] 73460 Potassium [Moles/Vol] 3.1 mmol/L Low 3.5 - 5.1 [facility] Comment on above: Performed By: #### 2 98756 ####[facility],[address] [place] [address] 16145 Protein [Mass/Vol] 8.7 g/dL High 6.4 - 8.2 [facility] Comment on above: Performed By: #### 2 83020 ####[facility],[address] [place] [address] 55106 Sodium [Moles/Vol] 142 mmol/L Normal 136 - 145 [facility] Comment on above: Performed By: #### 2 24193 ####[facility],[address] [place] [address] 72425 Urea nitrogen [Mass/Vol] 24 mg/dL High 7 - 18 [facility] Comment on above: Performed By: #### 2 93959 ####[facility],[address] [place] [address] 98735 LACTATEon 05-20-2024 Lactate [Moles/Vol] 2.6 mmol/L High 0.4 - 2.0 [facility] Comment on above: Result Comment: LACT ATE 3 HR NOTIFIED TO: _YAMILEX CANO 05/20/24.0421.TR . . . LACTATE 3 HR NOTIFIED BY: _TRR 05/20/24.042.TR . . . Performed By: #### 2 33435 ####[facility],[address] [place] [address] CBC + DIFFon 05-13-2024 Baso # 0.02 x10EE3/UL Normal 0.00 - 0.10 [facility] Comment on above: Performed By: #### 2 03562 ####[address] [address] Basophils/100 WBC (Bld) 0.2 % Normal 0.0 - 2.0 [facility] Comment on above: Performed By: #### 2 63259 ####[facility],[address] [place] [address] CBC + DIFF Normal [facility] Comment on above: Result Comment: CBC- COMPLETE BLOOD COUNT Performed By: #### 2 16030 ####[place] [address] EO # 0.05 x10EE3/UL Normal 0.00 - 0.50 [facility] Comment on above: Performed By: #### 2 10116 ####[facility],[address] [place] [address] 89683 Eosinophils/100 WBC (Bld) 0.4 % Normal 0.0 - 7.0 [facility] Comment on above: Performed By: #### 2 56071 ####[place] [address] Erythrocyte distribution width (RBC) [Ratio] 13.8 % Normal 12.0 - 15.6 [facility] Comment on above: Performed By: #### 2 66314 ####[facility],[address] [place] [address] Hematocrit (Bld) [Volume fraction] 50.9 % High 34.0 - 46.0 [facility] Comment on above: Performed By: #### 2 95193 ####[facility],[address] [place] [address] 23597 Hemoglobin (Bld) [Mass/Vol] 17.1 g/dL High 12.0 - 16.0 [facility] Comment on above: Performed By: #### 2 53462 ####[facility],[address] [place] [address] Lymph # 0.70 x10EE3/UL Low 0.80 - 2.80 [facility] Comment on above: Performed By: #### 2 03298 ####[facility],[address] [place] [address] Lymphocytes/100 WBC (Bld) 5.1 % Low 20.0 - 45.0 [facility] Comment on above: Performed By: #### 2 23586 ####[facility],[address] [place] [address] 78771 MANUAL DIFF N/A Normal [facility] Comment on above: Performed By: #### 2 42077 ####[facility],[address] [place], [place] [id number] MCH (RBC) [Entitic mass] 29 pg Normal 27 - 33 [facility] Comment on above: Performed By: #### 2 99397 ####[facility],[address] [place] [address] 71253 MCHC 34 X10 3 Normal 32 - 36 [facility] Comment on above: Performed By: #### 2 48830 ####[facility],[address] [place] [address] 03856 MCV (RBC) [Entitic vol] 87 fL Normal 80 - 99 [facility] Comment on above: Performed By: #### 2 32695 ####[facility],[address] [place] [address] 28595 Merrick # 0.52 x10EE3/UL Normal 0.20 - 1.00 [facility] Comment on above: Performed By: #### 2 51002 ####[facility],[address] [place] [address] 71595 MONOS % 3.8 % Normal 0.0 - 10.0 [facility] Comment on above: Performed By: #### 2 31350 ####[facility],[address] [place] [address] 96210 Morphology Julian (Bld) [Interp] N/A Normal [facility] Comment on above: Performed By: #### 2 34607 ####[facility],[address] [place] [address] 79955 Neut # 12.43 x10EE3/UL High 1.50 - 7.10 [facility] Comment on above: Performed By: #### 2 51141 ####[facility],[address] [place] [address] 71505 Neutrophils/100 WBC (Bld) 90.6 % High 46.0 - 76.0 [facility] Comment on above: Performed By: #### 2 21456 ####[facility],[address] [place] [address] 91776 PLATELET 354 x10EE3/UL Normal 150 - 450 [facility] Comment on above: Performed By: #### 2 57882 ####[facility],[address] [place] [address] 27524 Platelet mean volume (Bld) [Entitic vol] 7.1 fL Normal 6.6 - 10.5 [facility] Comment on above: Result Comment: AUTO MATED DIFFERENTIAL Performed By: #### 2 40330 ####[facility],[address] [place] [address] 35364 RBC 5.89 x 10EE6/UL High 4.10 - 5.30 [facility] Comment on above: Performed By: #### 2 90758 ####[facility],[address] [place] [address] 27949 WBC 13.7 x 10EE3/UL High 4.5 - 10.8 [facility] Comment on above: Performed By: #### 2 85480 ####[facility],[address] [place] [address] 67043 CMP with eGFRon 05-13-2024 AGE 74 years Normal [facility] Comment on above: Performed By: #### 2 52148 ####[facility],[address] [place] [address] 67577 Albumin [Mass/Vol] 4.5 g/dL Normal 3.4 - 5.0 [facility] Comment on above: Performed By: #### 2 96985 ####[facility],[address] [place] [address] 44916 Albumin/Globulin [Mass ratio] 1.0 {ratio} Normal 0.9 - 1.6 [facility] Comment on above: Performed By: #### 2 37567 ####[facility],[address] [place] [address] 63272 ALK PHOS 108 U/L Normal 46 - 116 [facility] Comment on above: Performed By: #### 2 51829 ####[facility],[address] [place] [address] 72094 ALT [Catalytic activity/Vol] 25 U/L Normal 16 - 63 [facility] Comment on above: Performed By: #### 2 75369 ####[facility],[address] [place] [address] 11578 Anion gap [Moles/Vol] 17 mmol/L Normal 10 - 20 [facility] Comment on above: Performed By: #### 2 96332 ####[facility],[address] [place] [address] 94714 AST [Catalytic activity/Vol] 24 U/L Normal 13 - 39 [facility] Comment on above: Performed By: #### 2 37495 ####[facility],[address] [place] [address] 31337 B/C RATIO 12 ratio Normal 0 - 30 [facility] Comment on above: Performed By: #### 2 89774 ####[facility],[address] [place] [address] 20111 Bilirubin [Mass/Vol] 0.6 mg/dL Normal 0.2 - 1.0 [facility] Comment on above: Performed By: #### 2 31783 ####[facility],[address] [place] [address] 88097 Calcium [Mass/Vol] 10.4 mg/dL High 8.5 - 10.1 [facility] Comment on above: Performed By: #### 2 31654 ####[facility],[address] [place] [address] 40510 Chloride [Moles/Vol] 91 mmol/L Low 98 - 107 [facility] Comment on above: Performed By: #### 2 35571 ####[facility],[address] [place] [address] 93623 CMP with eGFR Normal [facility] Comment on above: Result Comment: COMP REHENSIVE METABOLIC PANEL Performed By: #### 2 01807 ####[facility],[address] [place] [address] 21335 CO2 [Moles/Vol] 33.6 mmol/L High 21.0 - 32.0 [facility] Comment on above: Performed By: #### 2 53690 ####[facility],[address] [place] [address] 01961 Creatinine [Mass/Vol] 2.08 mg/dL High 0.55 - 1.02 [facility] Comment on above: Performed By: #### 2 56864 ####[facility],[address] [place] [address] 95496 eGFR 23 ML/MINUTE Low 60 - 999 [facility] Comment on above: Performed By: #### 2 97078 ####[facility],[address] [place] [address] 50610 eGFR(AA) 28 ML/MINUTE Low 60 - 999 [facility] Comment on above: Result Comment: ACCO RDING TO THE NATIONAL KIDNEY DISEASE EDUCATION PROGRAM(NKDE), A NORMAL eGFRIS A VALUE GREATER THAN OR EQUAL TO 60 ML/MIN/1.73 SQ METERS.CHRONIC KIDNEY DISEASE: <60mL/MIN/1.73 SQ METERSKIDNEY FAILURE: <15mL/MIN/1.73 SQ METERSTHIS TEST SHOULD ONLY BE USED FOR PATIENTS 18 YEARS OF AGE AND OLDER. Performed By: #### 2 35667 ####[address] [address] Globulin (S) [Mass/Vol] 4.5 g/dL High 1.5 - 3.8 [facility] Comment on above: Performed By: #### 2 50991 ####[facility],[address] [place] [address] 66092 Glucose [Mass/Vol] 195 mg/dL High 74 - 106 [facility] Comment on above: Performed By: #### 2 52754 ####[facility],[address] [place] [address] 98607 Potassium [Moles/Vol] 3.2 mmol/L Low 3.5 - 5.1 [facility] Comment on above: Performed By: #### 2 55917 ####[facility],[address] [place] [address] 46447 Protein [Mass/Vol] 9.0 g/dL High 6.4 - 8.2 [facility] Comment on above: Performed By: #### 2 98579 ####[facility],[address] [place] [address] 30590 Sodium [Moles/Vol] 138 mmol/L Normal 136 - 145 [facility] Comment on above: Performed By: #### 2 15054 ####[address],[place] [address] Urea nitrogen [Mass/Vol] 25 mg/dL High 7 - 18 [facility] Comment on above: Performed By: #### 2 28485 ####[facility],[address] [place] [address] ED MED ADMINISTRATION DETAIL on 05-13-2024 ED MED ADMINISTRATION DETAIL Normal [facility] ED NURSES CLINICAL NOTEon ED NURSES CLINICAL NOTE Normal [facility] ED ORDER SHEET (CPOE ONLY)on 05-13-2024 ED ORDER SHEET (CPOE ONLY) Normal [facility] ED PHYSICIAN CLINICAL REPORT on 05-13-2024 ED PHYSICIAN CLINICAL REPORT Normal [facility] ED PHYSICIAN DISCHARGE REPOR Ton 05-13-2024 ED PHYSICIAN DISCHARGE REPORT Normal [facility] ED SUPER BILLon 05-13-2024 ED SUPER BILL Normal [facility] ED VISIT SUMMARYon ED VISIT SUMMARY Normal [facility] ED VITALS FLOW SHEETon 05-13 ED VITALS FLOW SHEET Normal [facility] CBC + DIFFon 03-07-2024 Baso # 0.03 x10EE3/UL Normal 0.00 - 0.10 [facility] Comment on above: Performed By: #### 2 63391 ####[facility],[address] [place] [address] Basophils/100 WBC (Bld) 0.4 % Normal 0.0 - 2.0 [facility] Comment on above: Performed By: #### 2 85813 ####[facility],[address] [place] [address] CBC + DIFF Normal [facility] Comment on above: Result Comment: CBC- COMPLETE BLOOD COUNT Performed By: #### 2 17424 ####[facility],[address] [place] [address] EO # 0.19 x10EE3/UL Normal 0.00 - 0.50 [facility] Comment on above: Performed By: #### 2 72589 ####[address] [address] Eosinophils/100 WBC (Bld) 2.1 % Normal 0.0 - 7.0 [facility] Comment on above: Performed By: #### 2 87792 ####[place] [address] Erythrocyte distribution width (RBC) [Ratio] 13.8 % Normal 12.0 - 15.6 [facility] Comment on above: Performed By: #### 2 68086 ####[place] [address] Hematocrit (Bld) [Volume fraction] 49.7 % High 34.0 - 46.0 [facility] Comment on above: Performed By: #### 2 16314 ####[place] [address] Hemoglobin (Bld) [Mass/Vol] 16.5 g/dL High 12.0 - 16.0 [facility] Comment on above: Performed By: #### 2 37256 ####[place] [id number] Lymph # 1.79 x10EE3/UL Normal 0.80 - 2.80 [facility] Comment on above: Performed By: #### 2 93982 ####[place] [id number] Lymphocytes/100 WBC (Bld) 19.9 % Low 20.0 - 45.0 [facility] Comment on above: Performed By: #### 2 19952 ####[place] [id number] MANUAL DIFF N/A Normal [facility] Comment on above: Performed By: #### 2 23278 ####[place] [address] MCH (RBC) [Entitic mass] 29 pg Normal 27 - 33 [facility] Comment on above: Performed By: #### 2 27034 ####[facility],[address] [place] [address] 18694 MCHC 33 X10 3 Normal 32 - 36 [facility] Comment on above: Performed By: #### 2 82637 ####[facility],[address] [place] [address] 32568 MCV (RBC) [Entitic vol] 87 fL Normal 80 - 99 [facility] Comment on above: Performed By: #### 2 20290 ####[facility],[address] [place] [address] 42952 Merrick # 0.63 x10EE3/UL Normal 0.20 - 1.00 [facility] Comment on above: Performed By: #### 2 77780 ####[facility],[address] [place] [address] 34884 MONOS % 7.0 % Normal 0.0 - 10.0 [facility] Comment on above: Performed By: #### 2 85671 ####[facility],[address] [place] [address] 22622 Morphology Julian (Bld) [Interp] N/A Normal [facility] Comment on above: Performed By: #### 2 95937 ####[facility],[address] [place] [address] 97049 Neut # 6.35 x10EE3/UL Normal 1.50 - 7.10 [facility] Comment on above: Performed By: #### 2 63330 ####[facility],[address] [place] [address] 45693 Neutrophils/100 WBC (Bld) 70.6 % Normal 46.0 - 76.0 [facility] Comment on above: Performed By: #### 2 98957 ####[facility],[address] [place] [address] 44413 PLATELET 312 x10EE3/UL Normal 150 - 450 [facility] Comment on above: Performed By: #### 2 37794 ####[facility],[address] [place] [address] 71226 Platelet mean volume (Bld) [Entitic vol] 7.6 fL Normal 6.6 - 10.5 [facility] Comment on above: Result Comment: AUTO MATED DIFFERENTIAL Performed By: #### 2 12227 ####[facility],[address] [place] [address] 95139 RBC 5.71 x 10EE6/UL High 4.10 - 5.30 [facility] Comment on above: Performed By: #### 2 83137 ####[facility],[address] [place] [address] 24046 WBC 9.0 x 10EE3/UL Normal 4.5 - 10.8 [facility] Comment on above: Performed By: #### 2 49429 ####[facility],[address] [place], [place] [id number] CHEST 1 VIEWon 03-07-2024 CHEST 1 VIEW Normal [facility] CMP with eGFRon 03-07-2024 AGE 74 years Normal [facility] Comment on above: Performed By: #### 2 94574 ####[facility],[address] [place] [address] 91760 Albumin [Mass/Vol] 4.4 g/dL Normal 3.4 - 5.0 [facility] Comment on above: Performed By: #### 2 01714 ####[facility],[address] [place] [address] 74730 Albumin/Globulin [Mass ratio] 1.0 {ratio} Normal 0.9 - 1.6 [facility] Comment on above: Performed By: #### 2 23019 ####[facility],[address] [place] [address] 08273 ALK PHOS 111 U/L Normal 46 - 116 [facility] Comment on above: Performed By: #### 2 30442 ####[facility],[address] [place] [address] 54289 ALT [Catalytic activity/Vol] 22 U/L Normal 16 - 63 [facility] Comment on above: Performed By: #### 2 55291 ####[facility],[address] [place] [address] 08931 Anion gap [Moles/Vol] 16 mmol/L Normal 10 - 20 [facility] Comment on above: Performed By: #### 2 63078 ####[facility],[address] [place] [address] 40689 AST [Catalytic activity/Vol] 19 U/L Normal 13 - 39 [facility] Comment on above: Performed By: #### 2 50692 ####[facility],[address] [place] [address] 02610 B/C RATIO 8 ratio Normal 0 - 30 [facility] Comment on above: Performed By: #### 2 64053 ####[facility],[address] [place] [address] 24295 Bilirubin [Mass/Vol] 0.5 mg/dL Normal 0.2 - 1.0 [facility] Comment on above: Performed By: #### 2 82546 ####[facility],[address] [place] [address] 43734 Calcium [Mass/Vol] 10.5 mg/dL High 8.5 - 10.1 [facility] Comment on above: Performed By: #### 2 17231 ####[facility],[address] [place] [address] 23813 Chloride [Moles/Vol] 100 mmol/L Normal 98 - 107 [facility] Comment on above: Performed By: #### 2 00996 ####[facility],[address] [place] [address] 01779 CMP with eGFR Normal [facility] Comment on above: Result Comment: COMP REHENSIVE METABOLIC PANEL Performed By: #### 2 35642 ####[facility],[address] [place] [address] 76736 CO2 [Moles/Vol] 27.3 mmol/L Normal 21.0 - 32.0 [facility] Comment on above: Performed By: #### 2 80826 ####[facility],[address] [place] [address] 05248 Creatinine [Mass/Vol] 1.58 mg/dL High 0.55 - 1.02 [facility] Comment on above: Performed By: #### 2 20388 ####[facility],[address] [place] [address] 85377 eGFR 32 ML/MINUTE Low 60 - 999 [facility] Comment on above: Performed By: #### 2 10280 ####[facility],[address] [place] [address] 68152 eGFR(AA) 39 ML/MINUTE Low 60 - 999 [facility] Comment on above: Result Comment: ACCO RDING TO THE NATIONAL KIDNEY DISEASE EDUCATION PROGRAM(NKDE), A NORMAL eGFRIS A VALUE GREATER THAN OR EQUAL TO 60 ML/MIN/1.73 SQ METERS.CHRONIC KIDNEY DISEASE: <60mL/MIN/1.73 SQ METERSKIDNEY FAILURE: <15mL/MIN/1.73 SQ METERSTHIS TEST SHOULD ONLY BE USED FOR PATIENTS 18 YEARS OF AGE AND OLDER. Performed By: #### 2 36181 ####[facility],[address] [place] [address] 00766 Globulin (S) [Mass/Vol] 4.5 g/dL High 1.5 - 3.8 [facility] Comment on above: Performed By: #### 2 79744 ####[facility],[address] [place] [address] 79401 Glucose [Mass/Vol] 139 mg/dL High 74 - 106 [facility] Comment on above: Performed By: #### 2 40403 ####[facility],[address] [place] [address] 41295 Potassium [Moles/Vol] 3.3 mmol/L Low 3.5 - 5.1 [facility] Comment on above: Performed By: #### 2 31206 ####[facility] [facility],[address] [place] [address] 99807 Protein [Mass/Vol] 8.9 g/dL High 6.4 - 8.2 [facility] Comment on above: Performed By: #### 2 44653 ####[facility],[address] [place] [address] 52517 Sodium [Moles/Vol] 140 mmol/L Normal 136 - 145 [facility] Comment on above: Performed By: #### 2 64894 ####[facility],[address] [place] [address] 71337 Urea nitrogen [Mass/Vol] 12 mg/dL Normal 7 - 18 [facility] Comment on above: Performed By: #### 2 60998 ####[facility],[address] [place] [address] ABDOMEN/PELVIS Won 2023 CT ABDOMEN/PELVIS W Normal [facility] ED MED ADMINISTRATION DETAIL on 03-07-2024 ED MED ADMINISTRATION DETAIL Normal [facility] ED NURSES CLINICAL NOTEon ED NURSES CLINICAL NOTE Normal [facility] ED ORDER SHEET (CPOE ONLY)on 03-07-2024 ED ORDER SHEET (CPOE ONLY) Normal [facility] ED PHYSICIAN CLINICAL REPORT on 03-07-2024 ED PHYSICIAN CLINICAL REPORT Normal [facility] ED PHYSICIAN DISCHARGE REPOR Ton 03-07-2024 ED PHYSICIAN DISCHARGE REPORT Normal [facility] ED SUPER BILLon 03-07-2024 ED SUPER BILL Normal [facility] ED VISIT SUMMARYon ED VISIT SUMMARY Normal [facility] ED VITALS FLOW SHEETon 03-07 ED VITALS FLOW SHEET Normal [facility] LIPASEon 03-07-2024 Lipase [Catalytic activity/Vol] 116.0 U/L High 15.0 - 78.0 [facility] Comment on above: Result Comment: *PLE ASE NOTE THAT RANGES FOR LIPASE HAVE CHANGED OF 04/12/23 DUE TO AN ASSAYUPDATE BY THE PARTS COORDINATOR.THE NEW ASSAY RANGE IS 6-250 U/L, WITH A REFERENCERANGE OF 16-77 U/L. Performed By: #### 2 59771 ####[facility],[address] [place] [address] TROPONINon 03-07-2024 HS TROPONIN <4.0 Normal 0.0 - 51.4 [facility] Comment on above: Performed By: #### 2 20666 ####[facility],[address] [place] [address] URINALYSISon 03-07-2024 Amorphous 2+ Normal [facility] Comment on above: Performed By: #### 2 96269 ####[facility],[address] [place] [address] Bacteria NONE Normal [facility] Comment on above: Performed By: #### 2 00417 ####[facility],[address] [place], [place] [id number] Bilirubin Ql (U) Negative Normal NORMAL: NEGATIVE [facility] Comment on above: Performed By: #### 2 28039 ####[facility],[address] [place], [place] [id number] Casts SEE BELOW Normal [facility] Comment on above: Performed By: #### 2 80597 ####[facility],[address] [place], [place] [id number] Clarity (U) clear Normal NORMAL: CLEAR [facility] Comment on above: Performed By: #### 2 63878 ####[facility],[address] [place], [place] [id number] Color (U) LOUISE Normal NORMAL: YELLOW [facility] Comment on above: Performed By: #### 2 76662 ####[facility],[address],[place] [address] Crystals LM Nom (Urine sed) NONE Normal [facility] Comment on above: Performed By: #### 2 78095 ####[facility],[address] [place] [address] 46662 Epi Cells FEW Normal [facility] Comment on above: Performed By: #### 2 48237 ####[facility],[address] [place] [address] 76285 Glucose Ql (U) NORM Normal NORMAL: NORMAL [facility] Comment on above: Performed By: #### 2 01197 ####[facility],[address] [place] [address] 49363 Hemoglobin Ql (U) 10 Abnormal NORMAL: NEGATIVE [facility] Comment on above: Performed By: #### 2 65074 ####[facility],[address] [place], [place] [id number] Hyaline 1-5 Normal NORMAL: NONE [facility] Comment on above: Performed By: #### 2 03782 ####[facility],[address] [place] [address] 44739 Ketone 15 Abnormal NORMAL: NEGATIVE [facility] Comment on above: Performed By: #### 2 20912 ####[facility],[address] [place] [address] 20722 Leukocytes 100 Abnormal NORMAL: NEGATIVE [facility] Comment on above: Performed By: #### 2 50066 ####[facility],[address] [place] [address] 92803 Mucous 3+ Normal [facility] Comment on above: Performed By: #### 2 54636 ####[facility],[address] [place] [address] 16828 Nitrite Ql (U) Negative Normal NORMAL: NEGATIVE [facility] Comment on above: Performed By: #### 2 70872 ####[facility],[address] [place] [address] 27054 pH (U) 7 [pH] Normal NORMAL: 5.0-8.0 [facility] Comment on above: Performed By: #### 2 69137 ####[facility],[address] [place] [address] 15457 Protein Ql (U) 100 Abnormal NORMAL: NEGATIVE [facility] Comment on above: Performed By: #### 2 01606 ####[facility],[address] [place] [address] Rbc 0-5 Normal 0-3/hpf [facility] Comment on above: Performed By: #### 2 59091 ####[facility],[address] [place] [address] Sp [place] 1.015 Normal NORMAL: 1.010-1.030 [facility] Comment on above: Performed By: #### 2 77478 ####[facility],[address] [place] [address] Specimen Type R Normal [facility] Comment on above: Performed By: #### 2 18235 ####[facility],[address] [place] [address] Urinalysis dipstick W Reflex Microscopic panel (U) SEE BELOW Normal [facility] Comment on above: Result Comment: MICR OSCOPIC DONE ON UNSPUN URINE, RECIEVED< 2ML OF SAMPLEMICROSCOPIC Performed By: #### 2 16846 ####[facility],[address] [place] [address] Urobilinog 1 Abnormal NORMAL: NORMAL [facility] Comment on above: Performed By: #### 2 75218 ####[facility],[address] [place] [address] Wbc 6-10 Normal 0-5/hpf [facility] Comment on above: Performed By: #### 2 43836 ####[facility],[address] [place] [address] Yeast NONE Normal [facility] Comment on above: Performed By: #### 2 91946 ####[facility],[address] [id number] MR/BMS.SIMONBon 02-24-2024 MR/BMS.SIMONB [facility] [address] [place] [address] OFFICE VISIT Date of Service: 02/24/24 MR#: [id number] Acct: [id number] Name: BONY HUANG Rep #: [id number] : 1950 Provider: Dr. Cheikh negrete MD Age/Sex: 74/F Location: [facility] Status: Signed Intake Vital Signs 02/17/24 [...] Delivery Method room air Intake Visit Reasons: [facility] ER FU Chief Complaint: [facility] ER fu [employer]er Required: No Accompanied by: Is patient in [...] you fallen in the past year?: No [facility] Medical History (Updated 02/26/24 @ 00:02 by Fabian Dee) Hypothyroidism polypectomy Gastroparesis Carcinoid tumor Surgical History H/O: hysterectomy Family History Father Heart disease Myocardial infarction Mother CVA (cerebral vascular accident) Thyroid disorder Cancer Asthma Breast cancer Sister Cancer Social History Smoking Status: Never smoker alcohol intake: never substance use type: does not use HPI HPI Chief Complaint: [facility] ER fu Details: BONY HUANG, is a 74 F who presents to the office today for ER follow-up/hospitaliz ation. 74-year-old female who has a history of recurrent episodes of nausea vomiting diarrhea, presumably all related to her severe gastroparesis. She frequently goes to [facility] and will receive IV fluids, antiemetic emetics and usually can be discharged. She was admitted, due to acute kidney injury, dehydration. She responded well to IV fluids, symptomatic care. Subsequently discharged. She remains on Mote[employer], that was initially provided through [facility]. She has had recent scopes completed, without [...] or rebou (more content not included)... Normal [facility] Urinalysis, Completeon 02-19 CAST,FINE GRAN 0-5 SEEN Normal 0-5 [facility] Comment on above: Order Comment: CLEAN CATCH Performed By: #### L 400.0001 #### [facility] [address] [place], [place], [id number] CAST,HYALINE 5-10 SEEN Normal 0-5 [facility] Comment on above: Order Comment: CLEAN CATCH Performed By: #### L 400.0001 #### [facility] [address] [place], [address] EPI,SQUAMOUS 5-10 SEEN Normal 5-10 [facility] Comment on above: Order Comment: CLEAN CATCH Performed By: #### L 400.0001 #### [facility] [address] [place], [address] Mucus Ql (Urine sed) 4+ /hpf Normal [facility] Comment on above: Order Comment: CLEAN CATCH Performed By: #### L 400.0001 #### [facility] [address] [place], [address] WBC 0-5 SEEN Normal 0-5 [facility] Comment on above: Order Comment: CLEAN CATCH Performed By: #### L 400.0001 #### [facility] [address] [place], [address] CBC W/Diff, Automatedon 11-0 6-2023 Absolute Lymph 1.98 X10 3/uL Normal 0.83-4.51 [facility] Comment on above: Performed By: #### L 500.4050, L100.0100 #### [facility] [address] [place], [address] Absolute Neut 4.2 X10 3/uL Normal 2.0-7.7 [facility] Comment on above: Performed By: #### L 500.4050, L100.0100 #### [facility] [address] [place], [address] Basophils/100 WBC (Bld) 0.6 % Normal 0-1 [facility] Comment on above: Performed By: #### L 500.4050, L100.0100 #### [facility] [address] [place], [address] Eosinophils/100 WBC (Bld) 1.9 % Normal 0-5 [facility] Comment on above: Performed By: #### L 500.4050, L100.0100 #### [facility] [address] [place], [address] Erythrocyte distribution width (RBC) [Ratio] 12.8 % Normal 11.6-14.6 [facility] Comment on above: Performed By: #### L 500.4050, L100.0100 #### [facility] [address] [place], [address] Hematocrit (Bld) [Volume fraction] 43.9 % Normal 37-47 [facility] Comment on above: Performed By: #### L 500.4050, L100.0100 #### [facility] [address] [place], [address] Hemoglobin (Bld) [Mass/Vol] 14.7 g/dL Normal 12.0-15.0 [facility] Comment on above: Performed By: #### L 500.4050, L100.0100 #### [facility] [address] [place], [address] IG% 0.100 Normal 0.0-0.9 [facility] Comment on above: Result Comment: IG% - Immature Granulocytes (promyelocytes, myelocytes and metamyelocytes) > 1% indicates that a LEFT SHIFT is Present. Performed By: #### L 500.4050, L100.0100 #### [facility] [address] [place], [address] Lymphocytes/100 WBC (Bld) 28.5 % Normal 19-41 [facility] Comment on above: Performed By: #### L 500.4050, L100.0100 #### [facility] [address] [place], [address] MCH (RBC) [Entitic mass] 29.0 pg Normal 27.0-32.0 [facility] Comment on above: Performed By: #### L 500.4050, L100.0100 #### [facility] [address] [place], [address] MCHC (RBC) [Mass/Vol] 33.5 g/dL Normal 32-36 [facility] Comment on above: Performed By: #### L 500.4050, L100.0100 #### [facility] [address] [place], [address] MCV (RBC) [Entitic vol] 86.6 fL Normal 81-99 [facility] Comment on above: Performed By: #### L 500.4050, L100.0100 #### [facility] [address] [place], [address] Monocytes/100 WBC (Bld) 7.9 % Normal 0-10 [facility] Comment on above: Performed By: #### L 500.4050, L100.0100 #### [facility] [address] [place], [address] Neutrophils/100 WBC (Bld) 61.0 % Normal 47-70 [facility] Comment on above: Performed By: #### L 500.4050, L100.0100 #### [facility] [address] [place], [address] Nucleated RBC (Bld) [#/Vol] 0 10*3/uL Normal 0-5 [facility] Comment on above: Performed By: #### L 500.4050, L100.0100 #### [facility] [address] [place], [address] Platelet mean volume (Bld) [Entitic vol] 9.9 fL Normal 6.2-12.0 [facility] Comment on above: Performed By: #### L 500.4050, L100.0100 #### [facility] [address] [place], [address] Platelets (Bld) [#/Vol] 249 10*3/uL Normal 150-450 [facility] Comment on above: Performed By: #### L 500.4050, L100.0100 #### [facility] [address] [place], [address] RBC (Bld) [#/Vol] 5.07 10*6/uL Normal 4.2-5.4 [facility] Comment on above: Performed By: #### L 500.4050, L100.0100 #### [facility] [address] [place], [address] RDW SD 40.1 fl Normal 35.1-43.9 [facility] Comment on above: Performed By: #### L 500.4050, L100.0100 #### [facility] [address] [place], [address] WBC (Bld) [#/Vol] 6.9 10*3/uL Normal 4.4-11.0 [facility] Comment on above: Performed By: #### L 500.4050, L100.0100 #### [facility] [address] [place], [address] Comprehensive Metabolic Prof ilon 02-19-2024 Albumin [Mass/Vol] 4.4 g/dL Normal 3.2-5.0 [facility] Comment on above: Performed By: #### L 500.4050, L100.0100 #### [facility] [address] [place], [address] Albumin/Globulin [Mass ratio] 1.2 {ratio} Normal 0.9-2.4 [facility] Comment on above: Performed By: #### L 500.4050, L100.0100 #### [facility] [address] [place], [address] ALK P 97 U/L Normal 45-117 [facility] Comment on above: Performed By: #### L 500.4050, L100.0100 #### [facility] [address] [place], [address] ALT [Catalytic activity/Vol] 20 U/L Normal 13-56 [facility] Comment on above: Performed By: #### L 500.4050, L100.0100 #### [facility] [address] [place], [address] AST [Catalytic activity/Vol] 16 U/L Normal 15-37 [facility] Comment on above: Performed By: #### L 500.4050, L100.0100 #### [facility] [address] [place], [address] Bilirubin [Mass/Vol] 0.50 mg/dL Normal 0.20-1.00 [facility] Comment on above: Result Comment: For patients on eltrombopag therapy, use of Dimension [place] TBIL is not recommended. Performed By: #### L 500.4050, L100.0100 #### [facility] [address] [place], [address] BUN/CRE 12.7 RATIO Normal 10-20 [facility] Comment on above: Performed By: #### L 500.4050, L100.0100 #### [facility] [address] [place], [address] CA,Total 9.7 mg/dL Normal 8.5-10.1 [facility] Comment on above: Performed By: #### L 500.4050, L100.0100 #### [facility] [address] [place], [address] Chloride [Moles/Vol] 108 mmol/L High 98-107 [facility] Comment on above: Performed By: #### L 500.4050, L100.0100 #### [facility] [address] [place], [address] CO2 [Moles/Vol] 23.0 mmol/L Normal 21.0-32.0 [facility] Comment on above: Performed By: #### L 500.4050, L100.0100 #### [facility] [address] [place], [address] Creatinine [Mass/Vol] 1.02 mg/dL Normal 0.55-1.02 [facility] Comment on above: Result Comment: The validity of the calculated GFR GFRAA in patients over 70 years has not been determined. Clinical correlation is essential. Performed By: #### L 500.4050, L100.0100 #### [facility] [address] [place], [address] ECRCL 46.10 ml/min Normal [facility] Comment on above: Performed By: #### L 500.4050, L100.0100 #### [facility] [address] [place], [address] EST GFR - AA 68 mL/min Normal >60 [facility] Comment on above: Result Comment: Afri can Turkish GFR Calc Performed By: #### L 500.4050, L100.0100 #### [facility] [address] [place], [address] GAP 7 Normal 5-15 [facility] Comment on above: Performed By: #### L 500.4050, L100.0100 #### [facility] [address] [place], [address] GFR/1.73 sq M.predicted among non-blacks MDRD (S/P/Bld) [Vol rate/Area] 56 mL/min/{1.73_m2} Low >60 [facility] Comment on above: Result Comment: Non- GFR Calc Performed By: #### L 500.4050, L100.0100 #### [facility] [address] [place], [address] Globulin (S) [Mass/Vol] 3.8 g/dL Normal 2.2-4.[address] [facility] Comment on above: Performed By: #### L 500.4050, L100.0100 #### [facility] [address] [place], [address] Glucose [Mass/Vol] 96 mg/dL Normal 74-106 [facility] Comment on above: Performed By: #### L 500.4050, L100.0100 #### [facility] [address] [place], [address] Potassium [Moles/Vol] 3.8 mmol/L Normal 3.5-5.1 [facility] Comment on above: Performed By: #### L 500.4050, L100.0100 #### [facility] [address] [place], [address] Sodium [Moles/Vol] 137 mmol/L Normal 136-145 [facility] Comment on above: Performed By: #### L 500.4050, L100.0100 #### [facility] [address] [place], [address] T PROT 8.2 g/dL Normal 6.4-8.2 [facility] Comment on above: Performed By: #### L 500.4050, L100.0100 #### [facility] [address] [place], [address] Urea nitrogen [Mass/Vol] 13 mg/dL Normal 7-18 [facility] Comment on above: Performed By: #### L 500.4050, L100.0100 #### [facility] [address] [place], [address] Emergency Department Summary on 02-19-2024 Emergency Department Summary [facility] Medical Records Department [address] [place] [address] Emergency Department Summary 02/19/24 MR#: [id number] Acct: [id number] Name: BONY HUANG Rep #: [id number] : 1950 74 From: Lázaro Bermeo DO [...] and states this feels similar to that. [facility] Medical History (Updated 02/20/24 @ 00:40 by [...] Palpation: soft (more content not included)... Normal [facility] Urinalysis, Completeon 02-18 BACTERIA 0 SEEN Normal None Seen [facility] Comment on above: Order Comment: CLEAN CATCH Performed By: #### L 400.0001 #### [facility] [address] [place], [address] RBC 0 SEEN Normal 0-5 [facility] Comment on above: Order Comment: CLEAN CATCH Performed By: #### L 400.0001 #### [facility] [address] [place], [address] Urine Cultureon 02-19-2024 URC Mixed Gram Positive Organisms Longs Count 1000-10,000 MIXC Mixed contaminants. Submit a new specimen if indicated. Normal [facility] Comment on above: Performed By: #### L 500.4050, L501.5200 #### [facility] [address] [place], [address] CBC W/Diff, Automatedon Absolute Lymph 1.20 X10 3/uL Normal 0.83-4.51 [facility] Comment on above: Performed By: #### L 500.4050, L501.5200 #### [facility] [address] [place], [address] Absolute Neut 4.2 X10 3/uL Normal 2.0-7.7 [facility] Comment on above: Performed By: #### L 500.4050, L501.5200 #### [facility] [address] [place], [address] Basophils/100 WBC (Bld) 0.3 % Normal 0-1 [facility] Comment on above: Performed By: #### L 500.4050, L501.5200 #### [facility] [address] [place], [address] Eosinophils/100 WBC (Bld) 1.2 % Normal 0-5 [facility] Comment on above: Performed By: #### L 500.4050, L501.5200 #### [facility] [address] [place], [address] Erythrocyte distribution width (RBC) [Ratio] 13.1 % Normal 11.6-14.6 [facility] Comment on above: Performed By: #### L 500.4050, L501.5200 #### [facility] [address] [place], [address] Hematocrit (Bld) [Volume fraction] 38.7 % Normal 37-47 [facility] Comment on above: Performed By: #### L 500.4050, L501.5200 #### [facility] [address] [place], [address] Hemoglobin (Bld) [Mass/Vol] 12.9 g/dL Normal 12.0-15.0 [facility] Comment on above: Performed By: #### L 500.4050, L501.5200 #### [facility] [address] [place], [address] IG% 0.200 Normal 0.0-0.9 [facility] Comment on above: Result Comment: IG% - Immature Granulocytes (promyelocytes, myelocytes and metamyelocytes) > 1% indicates that a LEFT SHIFT is Present. Performed By: #### L 500.4050, L501.5200 #### [facility] [address] [place], [address] Lymphocytes/100 WBC (Bld) 19.9 % Normal 19-41 [facility] Comment on above: Performed By: #### L 500.4050, L501.5200 #### [facility] [address] [place], [address] MCH (RBC) [Entitic mass] 28.7 pg Normal 27.0-32.0 [facility] Comment on above: Performed By: #### L 500.4050, L501.5200 #### [facility] [address] [place], [address] MCHC (RBC) [Mass/Vol] 33.3 g/dL Normal 32-36 [facility] Comment on above: Performed By: #### L 500.4050, L501.5200 #### [facility] [address] [place], [address] MCV (RBC) [Entitic vol] 86.2 fL Normal 81-[address] [facility] Comment on above: Performed By: #### L 500.4050, L501.5200 #### [facility] [address] [place], [address] Monocytes/100 WBC (Bld) 8.6 % Normal 0-[address] [facility] Comment on above: Performed By: #### L 500.4050, L501.5200 #### [facility] [address] [place], [address] Neutrophils/100 WBC (Bld) 69.8 % Normal 47-70 [facility] Comment on above: Performed By: #### L 500.4050, L501.5200 #### [facility] [address] [place], [address] Nucleated RBC (Bld) [#/Vol] 0 10*3/uL Normal 0-5 [facility] Comment on above: Performed By: #### L 500.4050, L501.5200 #### [facility] [address] [place], [address] Platelet mean volume (Bld) [Entitic vol] 10.4 fL Normal 6.2-12.0 [facility] Comment on above: Performed By: #### L 500.4050, L501.5200 #### [facility] [address] [place], [address] Platelets (Bld) [#/Vol] 228 10*3/uL Normal 150-450 [facility] Comment on above: Performed By: #### L 500.4050, L501.5200 #### [facility] [address] [place], [address] RBC (Bld) [#/Vol] 4.49 10*6/uL Normal 4.2-5.4 [facility] Comment on above: Performed By: #### L 500.4050, L501.5200 #### [facility] [address] [place], [address] RDW SD 40.6 fl Normal 35.1-43.9 [facility] Comment on above: Performed By: #### L 500.4050, L501.5200 #### [facility] [address] [place], [address] WBC (Bld) [#/Vol] 6.0 10*3/uL Normal 4.4-11.0 [facility] Comment on above: Performed By: #### L 500.4050, L501.5200 #### [facility] [address] [place], [address] Comprehensive Metabolic Prof [facility] 02-18-2024 Albumin [Mass/Vol] 3.3 g/dL Normal 3.2-5.0 [facility] Comment on above: Performed By: #### L 500.4050, L501.5200 #### [facility] [address] [place], [address] Albumin/Globulin [Mass ratio] 1.0 {ratio} Normal 0.9-2.4 [facility] Comment on above: Performed By: #### L 500.4050, L501.5200 #### [facility] [address] [place], [address] ALK P 80 U/L Normal 45-117 [facility] Comment on above: Performed By: #### L 500.4050, L501.5200 #### [facility] [address] [place], [address] ALT [Catalytic activity/Vol] 14 U/L Normal 13-56 [facility] Comment on above: Performed By: #### L 500.4050, L501.5200 #### [facility] [address] [place], [address] AST [Catalytic activity/Vol] 12 U/L Low 15-37 [facility] Comment on above: Performed By: #### L 500.4050, L501.5200 #### [facility] [address] [place], [address] Bilirubin [Mass/Vol] 0.50 mg/dL Normal 0.20-1.00 [facility] Comment on above: Result Comment: For patients on eltrombopag therapy, use of Dimension [place] TBIL is not recommended. Performed By: #### L 500.4050, L501.5200 #### [facility] [address] [place], [address] BUN/CRE 18.3 RATIO Normal 10-20 [facility] Comment on above: Performed By: #### L 500.4050, L501.5200 #### [facility] [address] [place], [address] CA,Total 8.6 mg/dL Normal 8.5-10.1 [facility] Comment on above: Performed By: #### L 500.4050, L501.5200 #### [facility] [address] [place], [address] Chloride [Moles/Vol] 105 mmol/L Normal 98-107 [facility] Comment on above: Performed By: #### L 500.4050, L501.5200 #### [facility] [address] [place], [address] CO2 [Moles/Vol] 24.0 mmol/L Normal 21.0-32.0 [facility] Comment on above: Performed By: #### L 500.4050, L501.5200 #### [facility] [address] [place], [address] Creatinine [Mass/Vol] 1.26 mg/dL High 0.55-1.02 [facility] Comment on above: Result Comment: The validity of the calculated GFR GFRAA in patients over 70 years has not been determined. Clinical correlation is essential. Performed By: #### L 500.4050, L501.5200 #### [facility] [address] [place], [address] ECRCL 36.81 ml/min Normal [facility] Comment on above: Performed By: #### L 500.4050, L501.5200 #### [facility] [address] [place], [address] EST GFR - AA 54 mL/min Low >60 [facility] Comment on above: Result Comment: Afri can Turkish GFR Calc Performed By: #### L 500.4050, L501.5200 #### [facility] [address] [place], [address] GAP 9 Normal 5-15 [facility] Comment on above: Performed By: #### L 500.4050, L501.5200 #### [facility] [address] [place], [address] GFR/1.73 sq M.predicted among non-blacks MDRD (S/P/Bld) [Vol rate/Area] 44 mL/min/{1.73_m2} Low >60 [facility] Comment on above: Result Comment: Non- GFR Calc Performed By: #### L 500.4050, L501.5200 #### [facility] [address] [place], [address] Globulin (S) [Mass/Vol] 3.3 g/dL Normal 2.2-4.2 [facility] Comment on above: Performed By: #### L 500.4050, L501.5200 #### [facility] [address] [place], [address] Glucose [Mass/Vol] 105 mg/dL Normal 74-106 [facility] Comment on above: Result Comment: Fast ing Glucose result from 100 to 125 mg/dL suggests IMPAIRED HOMEOSTASIS per A.D.A. criteria. Performed By: #### L 500.4050, L501.5200 #### [facility] [address] [place], [address] Potassium [Moles/Vol] 3.7 mmol/L Normal 3.5-5.1 [facility] Comment on above: Performed By: #### L 500.4050, L501.5200 #### [facility] [address] [place], [address] Sodium [Moles/Vol] 138 mmol/L Normal 136-145 [facility] Comment on above: Performed By: #### L 500.4050, L501.5200 #### [facility] [address] [place], [address] T PROT 6.6 g/dL Normal 6.4-8.2 [facility] Comment on above: Performed By: #### L 500.4050, L501.5200 #### [facility] [address] [place], [address] Urea nitrogen [Mass/Vol] 23 mg/dL High 7-18 [facility] Comment on above: Performed By: #### L 500.4050, L501.5200 #### [facility] [address] [place], [address] Discharge Instructionon Discharge Instruction [facility] Medical Records Department [address] [place] [address] Instructions for Home/Discharge Instructions 02/18/24 1426 MR#: [id number] Acct: [id number] Name: BONY HUANG Rep #: [id number] : 1950 74 From: Cathleen Abdalla MD [...] MD; Dr. Vaishali Ren MD Signed Normal [facility] ENTERIC PATHOGEN PANEL STOOL on 02-18-2024 EP PANEL Is the patient receiving laxatives? N New/unexplained onset of 3 or more stools in past 24 hrs? Y CAMPYLOBACTER Not Detected Norovirus Not Detected Rotavirus Not Detected Salmonella Not Detected Shiga Toxin Not Detected Shigella sp. Not Detected VIBRIO Not Detected Yersinia Not Detected Normal [facility] Comment on above: Performed By: #### L 500.4050, L501.5200 #### [facility] [address] [place], [address] Magnesiumon 02-18-2024 Magnesium [Mass/Vol] 1.9 mg/dL Normal 1.6-2.6 [facility] Comment on above: Performed By: #### L 100.0100 #### [facility] [address] [place], [address] Thyroid Stim Hormone (TSH)on 02-18-2024 TSH 1.040 uIU/mL Normal 0.358-3.740 [facility] Comment on above: Performed By: #### L 100.0100 #### [facility] [address] [place], [address] CBC W/Diff, Automatedon 11-0 Absolute Lymph 0.69 X10 3/uL Low 0.83-4.51 [facility] Comment on above: Performed By: #### L 100.0100 #### [facility] [address] [place], [address] Absolute Neut 6.9 X10 3/uL Normal 2.0-7.7 [facility] Comment on above: Performed By: #### L 100.0100 #### [facility] [address] [place], [address] Basophils/100 WBC (Bld) 0.5 % Normal 0-1 [facility] Comment on above: Performed By: #### L 100.0100 #### [facility] [address] [place], [address] Eosinophils/100 WBC (Bld) 0.2 % Normal 0-5 [facility] Comment on above: Performed By: #### L 100.0100 #### [facility] [address] [place], [address] Erythrocyte distribution width (RBC) [Ratio] 12.9 % Normal 11.6-14.6 [facility] Comment on above: Performed By: #### L 100.0100 #### [facility] [address] [place], [address] Hematocrit (Bld) [Volume fraction] 51.3 % High 37-47 [facility] Comment on above: Performed By: #### L 100.0100 #### [facility] [address] [place], [address] Hemoglobin (Bld) [Mass/Vol] 17.4 g/dL High 12.0-15.0 [facility] Comment on above: Performed By: #### L 100.0100 #### [facility] [address] [place], [address] IG% 0.500 Normal 0.0-0.9 [facility] Comment on above: Result Comment: IG% - Immature Granulocytes (promyelocytes, myelocytes and metamyelocytes) > 1% indicates that a LEFT SHIFT is Present. Performed By: #### L 100.0100 #### [facility] [address] [place], [address] Lymphocytes/100 WBC (Bld) 8.4 % Low 19-41 [facility] Comment on above: Performed By: #### L 100.0100 #### [facility] [address] [place], [address] MCH (RBC) [Entitic mass] 29.0 pg Normal 27.0-32.0 [facility] Comment on above: Performed By: #### L 100.0100 #### [facility] [address] [place], [address] MCHC (RBC) [Mass/Vol] 33.9 g/dL Normal 32-36 [facility] Comment on above: Performed By: #### L 100.0100 #### [facility] [address] [place], [address] MCV (RBC) [Entitic vol] 85.5 fL Normal 81-99 [facility] Comment on above: Performed By: #### L 100.0100 #### [facility] [address] [place], [address] Monocytes/100 WBC (Bld) 6.1 % Normal 0-[address] [facility] Comment on above: Performed By: #### L 100.0100 #### [facility] [address] [place], [address] Neutrophils/100 WBC (Bld) 84.3 % High 47-70 [facility] Comment on above: Performed By: #### L 100.0100 #### [facility] [address] [place], [address] Nucleated RBC (Bld) [#/Vol] 0 10*3/uL Normal 0-5 [facility] Comment on above: Performed By: #### L 100.0100 #### [facility] [address] [place], [address] Platelet mean volume (Bld) [Entitic vol] 9.9 fL Normal 6.2-12.0 [facility] Comment on above: Performed By: #### L 100.0100 #### [facility] [address] [place], [address] Platelets (Bld) [#/Vol] 322 10*3/uL Normal 150-450 [facility] Comment on above: Performed By: #### L 100.0100 #### [facility] [address] [place], [address] RBC (Bld) [#/Vol] 6.00 10*6/uL High 4.2-5.4 [facility] Comment on above: Performed By: #### L 100.0100 #### [facility] [address] [place], [address] RDW SD 39.9 fl Normal 35.1-43.9 [facility] Comment on above: Performed By: #### L 100.0100 #### [facility] [address] [place], [address] WBC (Bld) [#/Vol] 8.2 10*3/uL Normal 4.4-11.0 [facility] Comment on above: Performed By: #### L 100.0100 #### [facility] [address] [place], [address] Comprehensive Metabolic Prof ilon 02-17-2024 Albumin [Mass/Vol] 4.9 g/dL Normal 3.2-5.0 [facility] Comment on above: Performed By: #### L 500.4050, L501.5200 #### [facility] [address] [place], [address] Albumin/Globulin [Mass ratio] 1.0 {ratio} Normal 0.9-2.4 [facility] Comment on above: Performed By: #### L 500.4050, L501.5200 #### [facility] [address] [place], [address] ALK P 117 U/L Normal 45-117 [facility] Comment on above: Performed By: #### L 500.4050, L501.5200 #### [facility] [address] [place], [address] ALT [Catalytic activity/Vol] 22 U/L Normal 13-56 [facility] Comment on above: Performed By: #### L 500.4050, L501.5200 #### [facility] [address] [place], [address] AST [Catalytic activity/Vol] 13 U/L Low 15-37 [facility] Comment on above: Performed By: #### L 500.4050, L501.5200 #### [facility] [address] [place], [address] Bilirubin [Mass/Vol] 0.60 mg/dL Normal 0.20-1.00 [facility] Comment on above: Result Comment: For patients on eltrombopag therapy, use of Dimension [place] TBIL is not recommended. Performed By: #### L 500.4050, L501.5200 #### [facility] [address] [place], [address] BUN/CRE 9.3 RATIO Low 10-20 [facility] Comment on above: Performed By: #### L 500.4050, L501.5200 #### [facility] [address] [place], [address] CA,Total 10.6 mg/dL High 8.5-10.1 [facility] Comment on above: Performed By: #### L 500.4050, L501.5200 #### [facility] [address] [place], [address] Chloride [Moles/Vol] 94 mmol/L Low 98-107 [facility] Comment on above: Performed By: #### L 500.4050, L501.5200 #### [facility] [address] [place], [address] CO2 [Moles/Vol] 32.0 mmol/L Normal 21.0-32.0 [facility] Comment on above: Performed By: #### L 500.4050, L501.5200 #### [facility] [address] [place], [address] Creatinine [Mass/Vol] 2.37 mg/dL High 0.55-1.02 [facility] Comment on above: Result Comment: The validity of the calculated GFR GFRAA in patients over 70 years has not been determined. Clinical correlation is essential. Performed By: #### L 500.4050, L501.5200 #### [facility] [facility] [address] [place], [address] ECRCL 19.45 ml/min Normal [facility] Comment on above: Performed By: #### L 500.4050, L501.5200 #### [facility] [address] [place], [address] EST GFR - AA 26 mL/min Low >60 [facility] Comment on above: Result Comment: Afri can Turkish GFR Calc Performed By: #### L 500.4050, L501.5200 #### [facility] [address] [place], [address] GAP 12 Normal 5-15 [facility] Comment on above: Performed By: #### L 500.4050, L501.5200 #### [facility] [address] [place], [address] GFR/1.73 sq M.predicted among non-blacks MDRD (S/P/Bld) [Vol rate/Area] 21 mL/min/{1.73_m2} Low >60 [facility] Comment on above: Result Comment: Non- GFR Calc Performed By: #### L 500.4050, L501.5200 #### [facility] [address] [place], [address] Globulin (S) [Mass/Vol] 4.7 g/dL High 2.2-4.[address] [facility] Comment on above: Performed By: #### L 500.4050, L501.5200 #### [facility] [address] [place], [address] Glucose [Mass/Vol] 141 mg/dL High 74-106 [facility] Comment on above: Result Comment: Fast ing Glucose result greater than or equal to 126 mg/dL suggests DIABETES MELLITUS per A.D.A. criteria. Performed By: #### L 500.4050, L501.5200 #### [facility] [address] [place], [address] Potassium [Moles/Vol] 3.3 mmol/L Low 3.5-5.1 [facility] Comment on above: Performed By: #### L 500.4050, L501.5200 #### [facility] [address] [place], [address] Sodium [Moles/Vol] 138 mmol/L Normal 136-145 [facility] Comment on above: Performed By: #### L 500.4050, L501.5200 #### [facility] [address] [place], [address] T PROT 9.6 g/dL High 6.4-8.2 [facility] Comment on above: Performed By: #### L 500.4050, L501.5200 #### [facility] [address] [place], [address] Urea nitrogen [Mass/Vol] 22 mg/dL High 7-18 [facility] Comment on above: Performed By: #### L 500.4050, L501.5200 #### [facility] [address] [place], [address] Emergency Department Summary on 02-17-2024 Emergency Department Summary [facility] Medical Records Department [address] [place] [address] Emergency Department Summary 02/17/24 MR#: [id number] Acct: [id number] Name: BONY HUANG Rep #: [id number] : 1950 74 From: Narinder Gomez DO PCP: Dr. Cheikh Pinto MD Status:ADM [facility] History of Present Illness Chief Complaint: [...] intact Psych: Cooperative, appropriate mood and affect [facility] Medical History Hypothyroidism polypectomy Gastroparesis Carcinoid tumor [...] CMP witho (more content not included)... Normal [facility] H AND P Exam - Hospitaliston 02-17-2024 H&P Exam - Hospitalist [facility] Medical Records Department [address] [place] [address] H P Exam - Hospitalist 02/17/24 1723 MR#: [id number] Acct: [id number] Name: BONY HUANG Rep #: [id number] : 1950 74 From: Vaishali Ren MD PCP: Dr. Cheikh Pinto MD Status:ADM NANCY Location: [facility] BI802-2 HPI - General General Date of Admission: 02/17/24 Date of Service: 02/17/24 Chief Complaint: N/V/Diarrhea HPI Narrative BONY HUANG, is a 74-year-old female history of hypothyroidism, GERD, gastroparesis and distant history of carcinoid tumor with resection presented to [facility] ED 02/17/24 for worsening nausea and [...] usual gastroparesis flare since she goes to [facility] but today when she went there there [...] Denies any other new or acute complaints. [facility] Medical History (Updated 02/17/24 @ 17:28 by [...] Oxygen Del (more content not included)... Normal [facility] Magnesiumon 02-17-2024 Magnesium [Mass/Vol] 2.1 mg/dL Normal 1.6-2.6 [facility] Comment on above: Performed By: #### L 500.4050, L501.5200 #### [facility] [address] [place], [address] Urinalysis, Completeon 02-16 BACTERIA 1+ /hpf Normal None Seen [facility] Comment on above: Order Comment: COLOR OF URINE MAY AFFECT DIPSTICK RESULTS. CLEAN CATCH Performed By: #### L 400.0001 #### [facility] [address] [place], [address] EPI,RENAL 0-5 SEEN Normal 0-5 [facility] Comment on above: Order Comment: COLOR OF URINE MAY AFFECT DIPSTICK RESULTS. CLEAN CATCH Performed By: #### L 400.0001 #### [facility] [address] [place], [address] EPI,TRANSITION 0-5 SEEN Normal 0-5 [facility] Comment on above: Order Comment: COLOR OF URINE MAY AFFECT DIPSTICK RESULTS. CLEAN CATCH Performed By: #### L 400.0001 #### [facility] [address] [place], [address] CA OX CRYSTAL 1+ /hpf Normal [facility] Comment on above: Order Comment: COLOR OF URINE MAY AFFECT DIPSTICK RESULTS. CLEAN CATCH Performed By: #### L 400.0001 #### [facility] [address] [place], [address] CAST,WBC 0-5 SEEN Normal None Seen [facility] Comment on above: Order Comment: COLOR OF URINE MAY AFFECT DIPSTICK RESULTS. CLEAN CATCH Performed By: #### L 400.0001 #### [facility] [address] [place], [address] CAST,FINE GRAN 0-5 SEEN Normal 0-5 [facility] Comment on above: Order Comment: COLOR OF URINE MAY AFFECT DIPSTICK RESULTS. CLEAN CATCH Performed By: #### L 400.0001 #### [facility] [address] [place], [address] EPI,SQUAMOUS 0-5 SEEN Normal 5-10 [facility] Comment on above: Order Comment: COLOR OF URINE MAY AFFECT DIPSTICK RESULTS. CLEAN CATCH Performed By: #### L 400.0001 #### [facility] [address] [place], [address] Mucus Ql (Urine sed) 3+ /hpf Normal [facility] Comment on above: Order Comment: COLOR OF URINE MAY AFFECT DIPSTICK RESULTS. CLEAN CATCH Performed By: #### L 400.0001 #### [facility] [address] [place], [address] CAST,HYALINE 50-100 SEEN Normal 0-5 [facility] Comment on above: Order Comment: COLOR OF URINE MAY AFFECT DIPSTICK RESULTS. CLEAN CATCH Performed By: #### L 400.0001 #### [facility] [address] [place], [address] WBC 10-25 SEEN Normal 0-5 [facility] Comment on above: Order Comment: COLOR OF URINE MAY AFFECT DIPSTICK RESULTS. CLEAN CATCH Performed By: #### L 400.0001 #### [facility] [address] [place], [address] RBC 0 SEEN Normal 0-5 [facility] Comment on above: Order Comment: COLOR OF URINE MAY AFFECT DIPSTICK RESULTS. CLEAN CATCH Performed By: #### L 400.0001 #### [facility] [address] [place], [address] ANES POSTPROC EVALon 024 ANES POSTPROC EVAL HNO ID: [id number] Author: MATT KAT MD Service: ? Author Type: Anesthesiologist Type: Anesthesia Postprocedure Evaluation Filed: 10/16/2023 12:50 Note Text: POST ANESTHESIA EVALUATION NOTE : 1950 Procedure Summary Date: 10/16/23 Room / Location: [facility] Endoscopy Anesthesia Start: 1125 Anesthesia Stop: 1143 Procedure: EGD DIAGNOSTIC Diagnosis: Dysphagia, unspecified type (Dysphagia) Scheduled Providers: Bina Overton MD; Stephen Arguelles APRN.BAND SAWYER; Matt Kat MD Responsible Provider: Matt Kat [...] October 16, 2023 TIME: 12:49 PM CSN: [id number] Normal [facility] ANES PRE-OPon 10-16-2023 ANES PRE-OP HNO ID: [id number] Author: MATT KAT MD Service: ? Author Type: Anesthesiologist Type: Anesthesia Preprocedure Evaluation Filed: 10/16/2023 09:55 Note Text: ANESTHESIOLOGY DAY OF SURGERY NOTE : 1950 Procedure Information Date/Time: 10/16/23 1215 Scheduled providers: Bina Overton MD; Stephen Arguelles APRN.BAND SAWYER; Matt Kat MD Procedure: EGD DIAGNOSTIC Location: [facility] Endoscopy Estimated body mass index is 29.15 [...] and consent discussed: yes. Patient / Responsible Republican agrees to proceed: yes Patient / Surrogate [...] every 8 hours as needed for nausea/vomiting. [place]-3 Fatty Acids 500 mg cap Take 500 [...] October 16, 2023 TIME: 9:54 AM CSN: [id number] Normal [facility] EGD Study observation Saroj medrano 10-16-2023 [facility] Gastrointestinal Endoscopy Patient Name: Bony Huang Procedure Date: 10/16/2023 10:28 AM Date of : 1950 Admit Type: Outpatient Age: 73 Room: [facility] Gender: Female Note Status: Finalized Attending MD: Bina Overton MD, [id number] Procedure: Upper GI endoscopy Indications: Dysphagia Providers: Bina Overton MD Patient Profile: Refer to note in patient chart for documentation of history and physical. Referring Physician: Bina Overton MD (Referring MD) Medicines: See the Anesthesia note for documentation of the administered medications Complications: No immediate complications. Requesting Provider: Procedure: Pre-Anesthesia Assessment: - Monitored anesthesia care under the supervision of a BAND SAWYER was determined to be medically necessary for [...] future endoscopies Procedure Code(s): --- Professional --- 12999, Esophagogastroduoden oscopy, flexible, transoral; with biopsy, single or multiple Diagnosis Code(s): --- Professional --- R13.10, Dysphagia, unspecified K44.9, Diaphragmatic hernia without obstruction or gangrene K29.70, Gastritis, unspecified, without bleeding K31.89, Other diseases of stomach and duodenum CPT copyright 2020 [employer]. All rights reserved. The codes documented in this report are preliminary and upon physician coder review may be revised to meet current compliance requirements. Attending Participation: I personally performed the entire procedure. Scope In: 11:31:03 AM Scope Out: 11:39:15 AM MD Bina Christy MD 10/16/2023 11:42:53 AM This report has been signed electronically by Bina Overton MD Number of Addenda: 0 Note Initiated On: 10/16/2023 10:28 AM Estimated Blood Loss: Estimated blood loss was minimal. [facility] Radiology Study observation (narrative) [facility] HISTORY PHYSICALon HISTORY PHYSICAL HNO ID: [id number] Author: BINA OVERTON MD Service: General Surgery [...] chronic constipation, followed by GI medicine at [facility] for years. She complains of swallowing difficulties. 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 [facility] TOTAL ABDOM HYSTERECTOMY CURRENT MEDICATIONS Current Outpatient Medications Medication Sig [place]-3 Fatty Acids 500 mg cap Take 500 [...] Mother Coronary Artery Disease Father premature with CO at around 27yo Colon Cancer Sister other [...] and denies h (more content not included)... [facility] SURGICAL PATHOLOGYon CASE REPORT [facility] Comment on above: Order Comment: Speci men Type: TISSUE SPECIMEN Ordering Facility: [facility] Address: [address] [place] [address] Result Comment: Surg [facility] Pathology Report Case: [id number] Authorizing Provider: Bina Overton MD Collected: 10/16/2023 11:36 AM Ordering Location: [facility] Endoscopy Received: 10/16/2023 02:08 PM Pathologist: Moi Gregg MD Specimens: A) - Small Bowel, Duodenum, Biopsy, Duodenal Bulb Biopsy B) - Stomach, Antrum, Biopsy C) - Esophagus, Mid, Biopsy Performed By: #### S #### [facility] CLIA [id number] [address] [place] [address] STATES [facility] FINAL DIAGNOSIS Normal [facility] Comment on above: Order Comment: Speci men Type: TISSUE SPECIMEN Ordering Facility: [facility] Address: [address] [place] [address] Result Comment: A. D uodenal bulb, biopsy: - Small bowel mucosa with no diagnostic abnormality. B. Stomach, biopsy: - Gastric antral-type and oxyntic-type mucosa with no diagnostic abnormality. C. Mid esophagus, biopsy: - Squamous mucosa with no diagnostic abnormality. JEL 10/18/2023 Performed By: #### S #### [facility] CLIA [id number] [address] [place] [address] OF [facility] FINAL PERFORMING LAB Normal [facility] Comment on above: Order Comment: Speci men Type: TISSUE SPECIMEN Ordering Facility: [facility] Address: [address] [place] [address] Result Comment: Diag nostic interpretation performed at [facility], [address] [place] [address] CLIA# [id number] Coater Slate: Omi Reid M.D. Performed By: #### S #### [facility] CLIA [id number] [address] [place] [address] STATES OF [facility] GROSS DESCRIPTION Normal [facility] Comment on above: Order Comment: Speci men Type: TISSUE SPECIMEN Ordering Facility: [facility] Address: [address] [place], [place] [id number] Result Comment: A. S mall Bowel, Duodenum, [...] 2023 9:35 PM Gross examination performed at [facility], [address] [place] [address] Performed By: #### S #### [facility] CLIA [id number] [address] [place] [address] OF [facility] Upper GI endoscopy 024 Upper GI endoscopy [facility] Gastrointestinal Endoscopy Patient Name: Bony Huang Procedure Date: 10/16/2023 10:28 AM Date of : 1950 Admit Type: Outpatient Age: 73 Room: [facility] Gender: Female Note Status: Finalized Attending MD: Bina Overton MD, [id number] Procedure: Upper GI endoscopy Indications: Dysphagia Providers: Bina Overton MD Patient Profile: Refer to note in patient chart for documentation of history and physical. Referring Physician: Bina Overton MD (Referring MD) Medicines: See the Anesthesia note for documentation of the administered medications Complications: No immediate complications. Requesting Provider: Procedure: Pre-Anesthesia Assessment: - Monitored anesthesia care under the supervision of a BAND SAWYER was determined to be medically necessary for [...] future endoscopies Procedure Code(s): --- Professional --- 92806, Esophagogastroduoden oscopy, flexible, transoral; with biopsy, single or multiple Diagnosis Code(s): --- Professional --- R13.10, Dysphagia, unspecified K44.9, Diaphragmatic hernia without obstruction or gangrene K29.70, Gastritis, unspecified, without bleeding K31.89, Other diseases of stomach and duodenum CPT copyright 2020 [employer]. All rights reserved. The codes documented in this report are preliminary and upon physician coder review may be revised to meet current compliance requirements. Attending Participation: I personally performed the entire procedure. Scope In: 11:31:03 AM Scope Out: 11:39:15 AM MD Bina Christy MD 10/16/2023 11:42:53 AM This report has been signed electronically by Bina Overton MD Number of Addenda: 0 Note Initiated On: 10/16/2023 10:28 AM Estimated Blood Loss: Estimated blood loss was minimal. Normal [facility] Absolute lymphocyte countOrd ered By: Cheikh Pinto on 08-08-2023 Lymphocytes Auto (Unsp spec) [#/Vol] 1.39 10*3/uL 0.83-4.51 [facility] Automated lymphocyte count a s percentage of total leukocytesOrdered By: Cheikh Pinto on 08-08-2023 Lymphocytes/100 WBC Auto (Unsp spec) 30.0 % 19-41 [facility] Basophil percentageOrdered B y: Cheikh Pinto on 08-08-2023 Basophils/100 WBC (Bld) 0.6 % 0-1 [facility] Bilirubin [Mass/Vol] 0.50 mg/dL 0.20-1.00 [facility] Comment on above: For patients on eltr ombopag therapy, use of Dimension [place] TBIL is not recommended. Chloride [Moles/Vol] 104 mmol/L 98-107 [facility] Cholesterol [Mass/Vol] 321 mg/dL <200 [facility] Comment on above: <200 mg/dL Desirable 200-240 mg/dL Borderline >240 mg/dL High Risk Eosinophils/100 WBC (Bld) 1.9 % 0-5 [facility] Glucose [Mass/Vol] 98 mg/dL 74-106 [facility] Hemoglobin (Bld) [Mass/Vol] 12.8 g/dL 12.0-15.0 [facility] Monocytes/100 WBC (Bld) 7.8 % 0-10 [facility] Neutrophils (Bld) [#/Vol] 2.8 10*3/uL 2.0-7.7 [facility] Neutrophils/100 WBC (Bld) 59.5 % 47-70 [facility] Potassium [Moles/Vol] 4.2 mmol/L 3.5-5.1 [facility] Protein [Mass/Vol] 7.6 g/dL 6.4-8.2 [facility] Sodium [Moles/Vol] 139 mmol/L 136-145 [facility] Triglyceride [Mass/Vol] 73 mg/dL <199 [facility] Comment on above: The drugs N-Acetylcy steine and Metamizole may falsely depress this assay.Serum Triglycerides Reference Interval Normal <150 mg/dL Borderline high 150 - 199 mg/dL High 200 - 499 mg/dL Very High > or = 500 mg/dL WBC (Bld) [#/Vol] 4.6 10*3/uL 4.4-11.0 [facility] Determination of erythrocyte mean corpuscular volume (MCV)Ordered By: Cheikh Pinto on 08-08-2023 MCV (RBC) [Entitic vol] 89.2 fL 81-[address] [facility] Erythrocyte distribution wid th ratioOrdered By: Cheikh Pinto on 08-08-2023 Erythrocyte distribution width (RBC) [Ratio] 12.9 % 11.6-14.6 [facility] Erythrocyte distribution wid th standard deviationOrdered By: Cheikh Pinto on 08-08-2023 Erythrocyte distribution width (RBC) [Entitic vol] 42.1 fL 35.1-43.9 [facility] Hematocrit Auto (Bld) [Volum e fraction]Ordered By: Cheikh Pinto on 08-08-2023 Hematocrit (Bld) [Volume fraction] 39.8 % 37-47 [facility] Immature granulocytes/100 WB C Auto (Bld)Ordered By: Cheikh Pinto on 08-08-2023 Immature granulocytes/100 WBC (Bld) 0.200 % 0.0-0.9 [facility] Comment on above: IG% - Immature Granu locytes (promyelocytes, myelocytes and metamyelocytes) > 1% indicates that a LEFT SHIFT is Present. Laboratory - Chemistry and C hemistry - challengeOrdered By: Cheikh Pinto on 08-08-2023 Albumin/Globulin [Mass ratio] 1.0 {ratio} 0.9-2.4 [facility] ALP [Catalytic activity/Vol] 76 U/L 45-117 [facility] ALT [Catalytic activity/Vol] 24 U/L 13-56 [facility] Cholesterol in HDL [Mass/Vol] 78 mg/dL >40 [facility] Comment on above: The drugs N-Acetylcy steine and Metamizole may falsely depress this assay. Reference Range HDL <40 mg/dL Low HDL Cholesterol HDL >or= 60 mg/dL High HDL Cholesterol Cholesterol in LDL [Mass/Vol] 228 mg/dL 0-130 [facility] CO2 [Moles/Vol] 28.0 mmol/L 21.0-32.0 [facility] Globulin (S) [Mass/Vol] 3.8 g/dL 2.2-4.[address] [facility] Magnesium [Mass/Vol] 2.0 mg/dL 1.6-2.6 [facility] Urea nitrogen/Creatinine [Mass ratio] 14.2 mg/mg 10-20 [facility] Laboratory - Hematology and Cell countsOrdered By: Cheikh Pinto on 08-08-2023 MCH (RBC) [Entitic mass] 28.7 pg 27.0-32.0 [facility] MCHC (RBC) [Mass/Vol] 32.2 g/dL 32-36 [facility] Nucleated RBC/100 WBC (Bld) [Ratio] 0 % 0-5 [facility] Platelet mean volume (Bld) [Entitic vol] 10.0 fL 6.2-12.0 [facility] Platelets (Bld) [#/Vol] 243 10*3/uL 150-450 [facility] No Panel InformationOrdered By: Cheikh Pinto on 08-08-2023 Estimated GFR (MDRD) Amer 71 mL/min >60 [facility] Comment on above: GFR Calc Estimated GFR (MDRD) Non-Af Amer 59 mL/min >60 [facility] Comment on above: Non- GFR Calc Free Triiodothyronine (T3) pg/dL 2.5 pg/mL 2.18-3.98 [facility] Vitamin D 25-Hydroxy 42.0 ng/mL [facility] Comment on above: Vitamin D 25(OH) Sta tus Range Deficiency <20 ng/mL (50nmol/L) Insufficiency 20 - 30 ng/mL (50 - 75 nmol/L) Sufficiency 30 - 100 ng/mL (75 - 250 nmol/L) Toxicity >100 ng/mL (>250 nmol/L) VLDL Cholesterol 15 mg/dL 5-40 [facility] RBC Auto (Bld) [#/Vol]Ordere d By: Cheikh Pinto on 08-08-2023 RBC (Bld) [#/Vol] 4.46 10*6/uL 4.2-5.4 [facility] Serum or plasma calcium veena urement (mass/volume)Ordered By: Cheikh Pinto on 08-08-2023 Calcium [Mass/Vol] 9.5 mg/dL 8.5-10.1 [facility] Serum or plasma creatinine m easurement (mass/volume)Ordered By: Cheikh Pinto on 08-08-2023 Creatinine [Mass/Vol] 0.98 mg/dL 0.55-1.02 [facility] Comment on above: The validity of the calculated GFR & GFRAA in patients over 70 years has not been determined. Clinical correlation is essential. Serum or plasma thyroid stim ulating hormone (TSH) measurement (units/volume)Ordered By: Cheikh Pinto on 08-08-2023 TSH Qn 0.90 uIU/mL 0.358-3.74 [facility] Serum or plasma urea nitroge n measurement (mass/volume)Ordered By: Cheikh Pinto on 08-08-2023 Urea nitrogen [Mass/Vol] 14 mg/dL 7-18 [facility] Thin prep Papanicolaou smear with manual screeningOrdered By: Cheikh Pinto on 08-08-2023 Thin prep Papanicolaou smear with manual screening 3.8 g/dL 3.2-5.0 [facility] Thin prep Papanicolaou smear with manual screening 19 U/L 15-37 [facility] Thin prep Papanicolaou smear with manual screening 7 5-15 [facility] Thin prep Papanicolaou smear with manual screening 1.36 ng/dL 0.76-1.46 [facility] Absolute lymphocyte countOrd ered By: Jaswant Aly on 12-18-2022 Lymphocytes Auto (Unsp spec) [#/Vol] 1.20 10*3/uL 0.83-4.51 [facility] Basophil percentageOrdered B y: Jaswant Aly on 12-18-2022 Basophils/100 WBC (Bld) 0.5 % 0-1 [facility] Bilirubin [Mass/Vol] 0.50 mg/dL 0.20-1.00 [facility] Comment on above: For patients on eltr ombopag therapy, use of Dimension [place] TBIL is not recommended. Chloride [Moles/Vol] 102 mmol/L 98-107 [facility] Eosinophils/100 WBC (Bld) 0.8 % 0-5 [facility] Glucose [Mass/Vol] 106 mg/dL 74-106 [facility] Comment on above: Fasting Glucose resu lt from 100 to 125 mg/dL suggests IMPAIRED HOMEOSTASIS per A.D.A. criteria. Neutrophils (Bld) [#/Vol] 6.8 10*3/uL 2.0-7.7 [facility] Neutrophils/100 WBC (Bld) 78.5 % 47-70 [facility] Potassium [Moles/Vol] 3.6 mmol/L 3.5-5.1 [facility] Protein [Mass/Vol] 9.2 g/dL 6.4-8.2 [facility] Sodium [Moles/Vol] 137 mmol/L 136-145 [facility] WBC (Bld) [#/Vol] 8.7 10*3/uL 4.4-11.0 [facility] Blood erythrocytes count (nu mber/volume)Ordered By: Jaswant Aly on 12-18-2022 RBC (Bld) [#/Vol] 5.27 10*6/uL 4.2-5.4 [facility] Blood hemoglobin measurement (mass/volume)Ordered By: Jaswant Aly on 12-18-2022 Hemoglobin (Bld) [Mass/Vol] 15.1 g/dL 12.0-15.0 [facility] Blood lymphocytes/100 leukoc ytesOrdered By: Jaswant Aly on 12-18-2022 Lymphocytes/100 WBC (Bld) 13.8 % 19-41 [facility] Blood monocytes/100 leukocyt esOrdered By: Jaswant Aly on 12-18-2022 Monocytes/100 WBC (Bld) 5.9 % 0-10 [facility] Blood platelet mean volumeOr dered By: Jaswant Aly on 12-18-2022 Platelet mean volume (Bld) [Entitic vol] 9.6 fL 6.2-12.0 [facility] Determination of erythrocyte mean corpuscular volume (MCV)Ordered By: Jaswant Aly on 12-18-2022 MCV (RBC) [Entitic vol] 88.0 fL 81-99 [facility] Hematocrit Auto (Bld) [Volum e fraction]Ordered By: Jaswant Aly on 12-18-2022 Hematocrit (Bld) [Volume fraction] 46.4 % 37-47 [facility] Laboratory - Chemistry and C hemistry - challengeOrdered By: Jaswant Aly on 12-18-2022 ALP [Catalytic activity/Vol] 102 U/L 45-117 [facility] ALT [Catalytic activity/Vol] 23 U/L 13-56 [facility] CO2 [Moles/Vol] 25.0 mmol/L 21.0-32.0 [facility] Globulin (S) [Mass/Vol] 4.6 g/dL 2.2-4.2 [facility] Lipase [Catalytic activity/Vol] 228 U/L 13-75 [facility] Comment on above: Please note:LIPASE r evised reference range effective 22. New Lipase methodology. Expected to produce lower values than the previous assay method. NEW Reference Range: 13 - 75 U/L Urea nitrogen/Creatinine [Mass ratio] 16.0 mg/mg 10-20 [facility] Laboratory - Hematology and Cell countsOrdered By: Jaswant Aly on 12-18-2022 Erythrocyte distribution width (RBC) [Entitic vol] 40.1 fL 35.1-43.9 [facility] Erythrocyte distribution width (RBC) [Ratio] 12.5 % 11.6-14.6 [facility] Immature granulocytes/100 WBC (Bld) 0.500 % 0.0-0.9 [facility] Comment on above: IG% - Immature Granu locytes (promyelocytes, myelocytes and metamyelocytes) > 1% indicates that a LEFT SHIFT is Present. MCH (RBC) [Entitic mass] 28.7 pg 27.0-32.0 [facility] Nucleated RBC/100 WBC (Bld) [Ratio] 0 % 0-5 [facility] MCHC Auto (RBC) [Mass/Vol]Or dered By: Jaswant Aly on 12-18-2022 MCHC (RBC) [Mass/Vol] 32.5 g/dL 32-36 [facility] No Panel InformationOrdered By: Jaswant Aly on 12-18-2022 Estimated Creatinine Clearance Calc 35.87 ml/min [facility] Estimated GFR (MDRD) Amer 57 mL/min >60 [facility] Comment on above: GFR Calc Estimated GFR (MDRD) Non-Af Amer 47 mL/min >60 [facility] Comment on above: Non- GFR Calc Platelets bldOrdered By: Armaan Aly on 12-18-2022 Platelets (Bld) [#/Vol] 299 10*3/uL 150-450 [facility] Serum or plasma albumin veena urement (mass/volume)Ordered By: Jaswant Aly on 12-18-2022 Albumin [Mass/Vol] 4.6 g/dL 3.2-5.0 [facility] Serum or plasma albumin/glob ulin mass ratioOrdered By: Jaswant Aly on 12-18-2022 Albumin/Globulin [Mass ratio] 1.0 {ratio} 0.9-2.4 [facility] Serum or plasma calcium veena urement (mass/volume)Ordered By: Jaswant Aly on 12-18-2022 Calcium [Mass/Vol] 10.4 mg/dL 8.5-10.1 [facility] Serum or plasma creatinine m easurement (mass/volume)Ordered By: Jaswant Aly on 12-18-2022 Creatinine [Mass/Vol] 1.19 mg/dL 0.55-1.02 [facility] Comment on above: The validity of the calculated GFR & GFRAA in patients over 70 years has not been determined. Clinical correlation is essential. Serum or plasma urea nitroge n measurement (mass/volume)Ordered By: Jaswant Aly on 12-18-2022 Urea nitrogen [Mass/Vol] 19 mg/dL 7-18 [facility] Thin prep Papanicolaou smear with manual screeningOrdered By: Jaswant Aly on 12-18-2022 Thin prep Papanicolaou smear with manual screening 15 U/L 15-37 [facility] Thin prep Papanicolaou smear with manual screening 10 5-15 [facility] Absolute lymphocyte countOrd ered By: Cheikh Pinto on 11-14-2022 Lymphocytes Auto (Unsp spec) [#/Vol] 1.60 10*3/uL 0.83-4.51 [facility] Basophil percentageOrdered B y: Cheikh Pinto on 11-14-2022 Basophils/100 WBC (Bld) 0.5 % 0-1 [facility] Bilirubin [Mass/Vol] 0.30 mg/dL 0.20-1.00 [facility] Comment on above: For patients on eltr ombopag therapy, use of Dimension [place] TBIL is not recommended. Chloride [Moles/Vol] 105 mmol/L 98-107 [facility] Cholesterol [Mass/Vol] 293 mg/dL <200 [facility] Comment on above: <200 mg/dL Desirable 200-240 mg/dL Borderline >240 mg/dL High Risk Eosinophils/100 WBC (Bld) 1.6 % 0-5 [facility] Glucose [Mass/Vol] 99 mg/dL 74-106 [facility] Neutrophils (Bld) [#/Vol] 3.6 10*3/uL 2.0-7.7 [facility] Neutrophils/100 WBC (Bld) 61.9 % 47-70 [facility] Potassium [Moles/Vol] 4.8 mmol/L 3.5-5.1 [facility] Protein [Mass/Vol] 7.7 g/dL 6.4-8.2 [facility] Sodium [Moles/Vol] 137 mmol/L 136-145 [facility] Triglyceride [Mass/Vol] 135 mg/dL <199 [facility] Comment on above: The drugs N-Acetylcy steine and Metamizole may falsely depress this assay.Serum Triglycerides Reference Interval Normal <150 mg/dL Borderline high 150 - 199 mg/dL High 200 - 499 mg/dL Very High > or = 500 mg/dL WBC (Bld) [#/Vol] 5.8 10*3/uL 4.4-11.0 [facility] Blood erythrocytes count (nu mber/volume)Ordered By: Cheikh Pinto on 11-14-2022 RBC (Bld) [#/Vol] 4.74 10*6/uL 4.2-5.4 [facility] Blood hemoglobin measurement (mass/volume)Ordered By: Cheikh Pinto on 11-14-2022 Hemoglobin (Bld) [Mass/Vol] 13.7 g/dL 12.0-15.0 [facility] Blood lymphocytes/100 leukoc ytesOrdered By: Cheikh Pinto on 11-14-2022 Lymphocytes/100 WBC (Bld) 27.7 % 19-41 [facility] Blood monocytes/100 leukocyt esOrdered By: Cheikh Pinto on 11-14-2022 Monocytes/100 WBC (Bld) 8.0 % 0-10 [facility] Blood platelet mean volumeOr dered By: Cheikh Pitno on 11-14-2022 Platelet mean volume (Bld) [Entitic vol] 10.1 fL 6.2-12.0 [facility] Determination of erythrocyte mean corpuscular volume (MCV)Ordered By: Cheikh Pinto on 11-14-2022 MCV (RBC) [Entitic vol] 90.1 fL 81-99 [facility] Hematocrit Auto (Bld) [Volum e fraction]Ordered By: Cheikh Pinto on 11-14-2022 Hematocrit (Bld) [Volume fraction] 42.7 % 37-47 [facility] Laboratory - Chemistry and C hemistry - challengeOrdered By: Cheikh Pinto on 11-14-2022 ALP [Catalytic activity/Vol] 82 U/L 45-117 [facility] ALT [Catalytic activity/Vol] 18 U/L 13-56 [facility] CO2 [Moles/Vol] 27.0 mmol/L 21.0-32.0 [facility] Cobalamin (Vitamin B12) [Mass/Vol] 354 pg/mL 211-911 [facility] Free T4 [Mass/Vol] 1.39 ng/dL 0.76-1.46 [facility] Globulin (S) [Mass/Vol] 4.0 g/dL 2.2-4.2 [facility] Lipase [Catalytic activity/Vol] 52 U/L 13-75 [facility] Comment on above: Please note:LIPASE r evised reference range effective 22. New Lipase methodology. Expected to produce lower values than the previous assay method. NEW Reference Range: 13 - 75 U/L Urea nitrogen/Creatinine [Mass ratio] 14.2 mg/mg 10-20 [facility] Laboratory - Hematology and Cell countsOrdered By: Cheikh Pinto on 11-14-2022 Erythrocyte distribution width (RBC) [Entitic vol] 41.5 fL 35.1-43.9 [facility] Erythrocyte distribution width (RBC) [Ratio] 12.5 % 11.6-14.6 [facility] Immature granulocytes/100 WBC (Bld) 0.300 % 0.0-0.9 [facility] Comment on above: IG% - Immature Granu locytes (promyelocytes, myelocytes and metamyelocytes) > 1% indicates that a LEFT SHIFT is Present. MCH (RBC) [Entitic mass] 28.9 pg 27.0-32.0 [facility] Nucleated RBC/100 WBC (Bld) [Ratio] 0 % 0-5 [facility] MCHC Auto (RBC) [Mass/Vol]Or dered By: Cheikh Pinto on 11-14-2022 MCHC (RBC) [Mass/Vol] 32.1 g/dL 32-36 [facility] No Panel InformationOrdered By: Cheikh Pinto on 11-14-2022 Estimated GFR (MDRD) Amer 66 mL/min >60 [facility] Comment on above: GFR Calc Estimated GFR (MDRD) Non-Af Amer 54 mL/min >60 [facility] Comment on above: Non- GFR Calc Free Triiodothyronine (T3) pg/dL 2.4 pg/mL 2.18-3.98 [facility] Thyroid Stimulating Hormone (TSH) 1.04 uIU/mL 0.358-3.74 [facility] Vitamin D 25-Hydroxy 40.7 ng/mL [facility] Comment on above: Vitamin D 25(OH) Sta tus Range Deficiency <20 ng/mL (50nmol/L) Insufficiency 20 - 30 ng/mL (50 - 75 nmol/L) Sufficiency 30 - 100 ng/mL (75 - 250 nmol/L) Toxicity >100 ng/mL (>250 nmol/L) Platelets bldOrdered By: Jenny Pinto on 11-14-2022 Platelets (Bld) [#/Vol] 263 10*3/uL 150-450 [facility] Serum or plasma albumin veena urement (mass/volume)Ordered By: Cheikh Pinto on 11-14-2022 Albumin [Mass/Vol] 3.7 g/dL 3.2-5.0 [facility] Serum or plasma albumin/glob ulin mass ratioOrdered By: Cheikh Pinto on 11-14-2022 Albumin/Globulin [Mass ratio] 0.9 {ratio} 0.9-2.4 [facility] Serum or plasma calcium veena urement (mass/volume)Ordered By: Cheikh Pinto on 11-14-2022 Calcium [Mass/Vol] 9.3 mg/dL 8.5-10.1 [facility] Serum or plasma cholesterol in HDL measurement (mass/volume)Ordered By: Cheikh Pinto on 11-14-2022 Cholesterol in HDL [Mass/Vol] 60 mg/dL >40 [facility] Comment on above: The drugs N-Acetylcy steine and Metamizole may falsely depress this assay. Reference Range HDL <40 mg/dL Low HDL Cholesterol HDL >or= 60 mg/dL High HDL Cholesterol Serum or plasma cholesterol in VLDL measurement (mass/volume)Ordered By: Cheikh Pinto on 11-14-2022 Cholesterol in VLDL [Mass/Vol] 27 mg/dL 5-40 [facility] Serum or plasma creatinine m easurement (mass/volume)Ordered By: Cheikh Pinto on 11-14-2022 Creatinine [Mass/Vol] 1.06 mg/dL 0.55-1.02 [facility] Comment on above: The validity of the calculated GFR & GFRAA in patients over 70 years has not been determined. Clinical correlation is essential. Serum or plasma low density lipoprotein (LDL) cholesterol measurement (mass/volume)Ordered By: Cheikh Pinto on 11-14-2022 Cholesterol in LDL [Mass/Vol] 206 mg/dL 0-130 [facility] Serum or plasma urea nitroge n measurement (mass/volume)Ordered By: Cheikh Pinto on 11-14-2022 Urea nitrogen [Mass/Vol] 15 mg/dL 7-18 [facility] Thin prep Papanicolaou smear with manual screeningOrdered By: Cheikh Pinto on 11-14-2022 Thin prep Papanicolaou smear with manual screening 16 U/L 15-37 [facility] Thin prep Papanicolaou smear with manual screening 5 5-15 [facility] Absolute lymphocyte countOrd ered By: Ferny Jett on 11-10-2022 Lymphocytes Auto (Unsp spec) [#/Vol] 1.05 10*3/uL 0.83-4.51 [facility] Basophil percentageOrdered B y: Ferny Jett on 11-10-2022 Basophils/100 WBC (Bld) 0.4 % 0-1 [facility] Bilirubin [Mass/Vol] 0.40 mg/dL 0.20-1.00 [facility] Comment on above: For patients on eltr ombopag therapy, use of Dimension [place] TBIL is not recommended. Chloride [Moles/Vol] 101 mmol/L 98-107 [facility] Eosinophils/100 WBC (Bld) 0.4 % 0-5 [facility] Glucose [Mass/Vol] 156 mg/dL 74-106 [facility] Comment on above: Fasting Glucose resu lt greater than or equal to 126 mg/dL suggests DIABETES MELLITUS per A.D.A. criteria. Neutrophils (Bld) [#/Vol] 7.9 10*3/uL 2.0-7.7 [facility] Neutrophils/100 WBC (Bld) 81.2 % 47-70 [facility] Potassium [Moles/Vol] 4.0 mmol/L 3.5-5.1 [facility] Comment on above: Slight Hemolysis, Re sult may be falsely increased. Protein [Mass/Vol] 9.2 g/dL 6.4-8.2 [facility] Sodium [Moles/Vol] 139 mmol/L 136-145 [facility] WBC (Bld) [#/Vol] 9.7 10*3/uL 4.4-11.0 [facility] Blood erythrocytes count (nu mber/volume)Ordered By: Ferny Jett on 11-10-2022 RBC (Bld) [#/Vol] 5.43 10*6/uL 4.2-5.4 [facility] Blood hemoglobin measurement (mass/volume)Ordered By: Ferny Jett on 11-10-2022 Hemoglobin (Bld) [Mass/Vol] 15.7 g/dL 12.0-15.0 [facility] Blood lymphocytes/100 leukoc ytesOrdered By: Ferny Jett on 11-10-2022 Lymphocytes/100 WBC (Bld) 10.8 % 19-41 [facility] [facility]/100 leukocyt esOrdered By: Ferny Jett on 11-10-2022 Monocytes/100 WBC (Bld) 6.8 % 0-[address] [facility] Blood platelet mean volumeOr dered By: Ferny Jett on 11-10-2022 Platelet mean volume (Bld) [Entitic vol] 9.9 fL 6.2-12.0 [facility] Determination of erythrocyte mean corpuscular volume (MCV)Ordered By: Ferny Jett on 11-10-2022 MCV (RBC) [Entitic vol] 87.3 fL 81-99 [facility] Hematocrit Auto (Bld) [Volum e fraction]Ordered By: Ferny Jett on 11-10-2022 Hematocrit (Bld) [Volume fraction] 47.4 % 37-47 [facility] Laboratory - Chemistry and C hemistry - challengeOrdered By: Fernysherwin Jett on 11-10-2022 ALP [Catalytic activity/Vol] 91 U/L 45-117 [facility] ALT [Catalytic activity/Vol] 21 U/L 13-56 [facility] CO2 [Moles/Vol] 26.0 mmol/L 21.0-32.0 [facility] Globulin (S) [Mass/Vol] 4.6 g/dL 2.2-4.2 [facility] Urea nitrogen/Creatinine [Mass ratio] 9.8 mg/mg 10-20 [facility] - Hematology and Cell countsOrdered By: Ferny Jett on 11-10-2022 Erythrocyte distribution width (RBC) [Entitic vol] 40.6 fL 35.1-43.9 [facility] Erythrocyte distribution width (RBC) [Ratio] 12.9 % 11.6-14.6 [facility] Immature granulocytes/100 WBC (Bld) 0.400 % 0.0-0.9 [facility] Comment on above: IG% - Immature Granu locytes (promyelocytes, myelocytes and metamyelocytes) > 1% indicates that a LEFT SHIFT is Present. MCH (RBC) [Entitic mass] 28.9 pg 27.0-32.0 [facility] Nucleated RBC/100 WBC (Bld) [Ratio] 0 % 0-5 [facility] MCHC Auto (RBC) [Mass/Vol]Or dered By: Ferny Jett on 11-10-2022 MCHC (RBC) [Mass/Vol] 33.1 g/dL 32-36 [facility] No Panel InformationOrdered By: Ferny Jett on 11-10-2022 Estimated Creatinine Clearance Calc 24.67 ml/min [facility] Estimated GFR (MDRD) Amer 37 mL/min >60 [facility] Comment on above: GFR Calc Estimated GFR (MDRD) Non-Af Amer 31 mL/min >60 [facility] Comment on above: Non- GFR Calc Platelets bldOrdered By: Tej Jett on 11-10-2022 Platelets (Bld) [#/Vol] 330 10*3/uL 150-450 [facility] Serum or plasma albumin veena urement (mass/volume)Ordered By: Ferny Jett on 11-10-2022 Albumin [Mass/Vol] 4.6 g/dL 3.2-5.0 [facility] Serum or plasma albumin/glob ulin mass ratioOrdered By: Ferny Jett on 11-10-2022 Albumin/Globulin [Mass ratio] 1.0 {ratio} 0.9-2.4 [facility] Serum or plasma calcium veena urement (mass/volume)Ordered By: Ferny Jett on 11-10-2022 Calcium [Mass/Vol] 10.5 mg/dL 8.5-10.1 [facility] Serum or plasma creatinine m easurement (mass/volume)Ordered By: Ferny Jett on 11-10-2022 Creatinine [Mass/Vol] 1.73 mg/dL 0.55-1.02 [facility] Comment on above: The validity of the calculated GFR & GFRAA in patients over 70 years has not been determined. Clinical correlation is essential. Serum or plasma urea nitroge n measurement (mass/volume)Ordered By: Ferny Jett on 11-10-2022 Urea nitrogen [Mass/Vol] 17 mg/dL -18 [facility] Thin prep Papanicolaou smear with manual screeningOrdered By: Ferny Jett on 11-10-2022 Thin prep Papanicolaou smear with manual screening 20 U/L [facility] Comment on above: Slight Hemolysis, Re sult may be falsely increased. Thin prep Papanicolaou smear with manual screening 12 5-15 [facility] Absolute lymphocyte countOrd ered By: Jany Talamantes on 10-31-2022 Lymphocytes Auto (Unsp spec) [#/Vol] 0.73 10*3/uL 0.83-4.51 [facility] Basophil percentageOrdered B y: Jany Talamantes on 10-31-2022 Basophil percentage 5-10 SEEN /hpf 0-5 [facility] Basophils/100 WBC (Bld) 0.4 % 0-1 [facility] Bilirubin [Mass/Vol] 0.60 mg/dL 0.20-1.00 [facility] Comment on above: For patients on eltr ombopag therapy, use of Dimension [place] TBIL is not recommended. Chloride [Moles/Vol] 97 mmol/L 98-107 [facility] Eosinophils/100 WBC (Bld) 0.2 % 0-5 [facility] Glucose [Mass/Vol] 176 mg/dL 74-106 [facility] Comment on above: Fasting Glucose resu lt greater than or equal to 126 mg/dL suggests DIABETES MELLITUS per A.D.A. criteria. Neutrophils (Bld) [#/Vol] 7.0 10*3/uL 2.0-7.7 [facility] Neutrophils/100 WBC (Bld) 84.7 % 47-70 [facility] Potassium [Moles/Vol] 2.9 mmol/L 3.5-5.1 [facility] Protein [Mass/Vol] 8.5 g/dL 6.4-8.2 [facility] Sodium [Moles/Vol] 139 mmol/L 136-145 [facility] WBC (Bld) [#/Vol] 8.2 10*3/uL 4.4-11.0 [facility] Bilirubin Test strip Ql (U)O rdered By: Jany Talamantes on 10-31-2022 Bilirubin Ql (U) 1 mg/dL Negative [facility] Comment on above: COLOR OF URINE MAY A FFECT DIPSTICK RESULTS. Blood erythrocytes count (nu mber/volume)Ordered By: Jany Talamantes on 10-31-2022 RBC (Bld) [#/Vol] 5.31 10*6/uL 4.2-5.4 [facility] Blood hemoglobin measurement (mass/volume)Ordered By: Jany Talamantes on 10-31-2022 Hemoglobin (Bld) [Mass/Vol] 15.1 g/dL 12.0-15.0 [facility] Blood lymphocytes/100 leukoc ytesOrdered By: Jany Talamantes on 10-31-2022 Lymphocytes/100 WBC (Bld) 8.9 % 19-41 [facility] Blood monocytes/100 leukocyt esOrdered By: Jany Talamantes on 10-31-2022 Monocytes/100 WBC (Bld) 5.4 % 0-10 [facility] Blood platelet mean volumeOr dered By: Jany Talamantes on 10-31-2022 Platelet mean volume (Bld) [Entitic vol] 10.3 fL 6.2-12.0 [facility] Culture, urineOrdered By: Jhonny Jett on 10-31-2022 Bacteria identified Cx Nom (U) Positive [facility] Determination of erythrocyte mean corpuscular volume (MCV)Ordered By: Jany Talamantes on 10-31-2022 MCV (RBC) [Entitic vol] 86.6 fL 81-99 [facility] Direct bilirubinOrdered By: Jany Talamantes on 10-31-2022 Bilirubin.direct [Mass/Vol] 0.11 mg/dL 0.00-0.30 [facility] Hematocrit Auto (Bld) [Volum e fraction]Ordered By: Jany Talamantes on 10-31-2022 Hematocrit (Bld) [Volume fraction] 46.0 % 37-47 [facility] Hyaline casts LM.LPF (Urine sed) [#/Area]Ordered By: Jany Talamantes on 10-31-2022 Hyaline casts (Urine sed) [#/Area] 10 /[LPF] 0-5 [facility] Ketones Test strip Ql (U)Ord ered By: Jany Talamantes on 10-31-2022 Ketones Ql (U) 5 mg/dl Negative [facility] Laboratory - Chemistry and C hemistry - challengeOrdered By: Jany Talamantes on 10-31-2022 ALP [Catalytic activity/Vol] 77 U/L 45-117 [facility] ALT [Catalytic activity/Vol] 23 U/L 13-56 [facility] CO2 [Moles/Vol] 32.0 mmol/L 21.0-32.0 [facility] Globulin (S) [Mass/Vol] 4.3 g/dL 2.2-4.2 [facility] Urea nitrogen/Creatinine [Mass ratio] 12.8 mg/mg 10-20 [facility] - Hematology and Cell countsOrdered By: Jany Talamantes on 10-31-2022 Erythrocyte distribution width (RBC) [Entitic vol] 40.1 fL 35.1-43.9 [facility] Erythrocyte distribution width (RBC) [Ratio] 12.8 % 11.6-14.6 [facility] Immature granulocytes/100 WBC (Bld) 0.400 % 0.0-0.9 [facility] Comment on above: IG% - Immature Granu locytes (promyelocytes, myelocytes and metamyelocytes) > 1% indicates that a LEFT SHIFT is Present. MCH (RBC) [Entitic mass] 28.4 pg 27.0-32.0 [facility] Nucleated RBC/100 WBC (Bld) [Ratio] 0 % 0-5 [facility] MCHC Auto (RBC) [Mass/Vol]Or dered By: Jany Talamantes on 10-31-2022 MCHC (RBC) [Mass/Vol] 32.8 g/dL 32-36 [facility] Mucus LM Ql (Urine sed)Order ed By: Jany Talamantes on 10-31-2022 Mucus Ql (Urine sed) 0 SEEN /hpf [facility] Nitrite Test strip Ql (U)Ord ered By: Jany Talamantes on 10-31-2022 Nitrite Ql (U) Negative Negative [facility] No Panel InformationOrdered By: Jany Talamantes on 10-31-2022 Estimated Creatinine Clearance Calc 23.85 ml/min [facility] Estimated GFR (MDRD) Amer 36 mL/min >60 [facility] Comment on above: GFR Calc Estimated GFR (MDRD) Non-Af Amer 30 mL/min >60 [facility] Comment on above: Non- GFR Calc Platelets bldOrdered By: Marita Talamantes on 10-31-2022 Platelets (Bld) [#/Vol] 254 10*3/uL 150-450 [facility] Protein Test strip Ql (U)Ord ered By: Jany Talamantes on 10-31-2022 Protein Ql (U) 100 mg/dl Negative [facility] Serum or plasma albumin veena urement (mass/volume)Ordered By: Jany Talamantes on 10-31-2022 Albumin [Mass/Vol] 4.2 g/dL 3.2-5.0 [facility] Serum or plasma calcium veena urement (mass/volume)Ordered By: Jany Talamantes on 10-31-2022 Calcium [Mass/Vol] 9.8 mg/dL 8.5-10.1 [facility] Serum or plasma creatinine m easurement (mass/volume)Ordered By: Jany Talamantes on 10-31-2022 Creatinine [Mass/Vol] 1.79 mg/dL 0.55-1.02 [facility] Comment on above: The validity of the calculated GFR & GFRAA in patients over 70 years has not been determined. Clinical correlation is essential. Serum or plasma urea nitroge n measurement (mass/volume)Ordered By: Jany Talamantes on 10-31-2022 Urea nitrogen [Mass/Vol] 23 mg/dL 7-18 [facility] Squamous epithelial cells de tection in urine sediment by light microscopyOrdered By: Jany Talamantes on 10-31-2022 Epithelial cells.squamous LM Ql (Urine sed) 0 SEEN /hpf 5-10 [facility] Thin prep Papanicolaou smear with manual screeningOrdered By: Jany Talamantes on 10-31-2022 Thin prep Papanicolaou smear with manual screening 17 U/L 15-37 [facility] Thin prep Papanicolaou smear with manual screening 10 5-15 [facility] Urine blood detectionOrdered By: Jany Talamantes on 10-31-2022 RBC Ql (U) 10 /ul Negative [facility] RBC Ql (U) 0-5 SEEN /hpf 0-5 [facility] Urine clarityOrdered By: Marita Talamantes on 10-31-2022 Clarity (U) Sl. Cloudy Clear [facility] Urine color determinationOrd ered By: Jany Talamantes on 10-31-2022 Color (U) Yellow Yellow [facility] Urine glucose detectionOrder ed By: Jany Talamantes on 10-31-2022 Glucose Ql (U) 50 mg/dl Normal [facility] Urine leukocyte esterase det ection by dipstickOrdered By: Jany Talamantes on 10-31-2022 Leukocyte esterase Test strip Ql (U) 100 /ul Negative [facility] Urine pHOrdered By: Jany Talamantes on 10-31-2022 pH (U) 5.0 [pH] 5.0 - 8.0 [facility] Urine sediment bacteria coun t by microscopy (number/high power field)Ordered By: Jany Talamantes on 10-31-2022 Bacteria LM.HPF (Urine sed) [#/Area] 1 /[HPF] None Seen [facility] Urine specific gravity measu rementOrdered By: Jany Talamantes on 10-31-2022 Specific gravity (U) [Rel density] 1.030 1.002-1.030 [facility] Urobilinogen Auto test strip Ql (U)Ordered By: Jany Talamantes on 10-31-2022 Urobilinogen Ql (U) 1 mg/dl Normal [facility] No Panel Informationon 09-11 [facility] Absolute lymphocyte countOrd ered By: Dr. Pinto on 05-16-2022 Lymphocytes Auto (Unsp spec) [#/Vol] 1.89 10*3/uL 0.83-4.51 [facility] Basophil percentageOrdered B y: Dr. Pinto on 05-16-2022 Basophils/100 WBC (Bld) 0.4 % 0-1 [facility] Bilirubin [Mass/Vol] 0.30 mg/dL 0.20-1.00 [facility] Comment on above: For patients on eltr ombopag therapy, use of Dimension [place] TBIL is not recommended. Chloride [Moles/Vol] 106 mmol/L 98-107 [facility] Eosinophils/100 WBC (Bld) 2.2 % 0-5 [facility] Glucose [Mass/Vol] 92 mg/dL 74-106 [facility] Neutrophils (Bld) [#/Vol] 3.0 10*3/uL 2.0-7.7 [facility] Neutrophils/100 WBC (Bld) 54.6 % 47-70 [facility] Potassium [Moles/Vol] 4.0 mmol/L 3.5-5.1 [facility] Protein [Mass/Vol] 7.6 g/dL 6.4-8.2 [facility] Sodium [Moles/Vol] 142 mmol/L 136-145 [facility] WBC (Bld) [#/Vol] 5.4 10*3/uL 4.4-11.0 [facility] Blood erythrocytes count (nu mber/volume)Ordered By: Dr. Pinto on 05-16-2022 RBC (Bld) [#/Vol] 4.68 10*6/uL 4.2-5.4 [facility] Blood hemoglobin measurement (mass/volume)Ordered By: Dr. Pinto on 05-16-2022 Hemoglobin (Bld) [Mass/Vol] 13.1 g/dL 12.0-15.0 [facility] Blood lymphocytes/100 leukoc ytesOrdered By: Dr. Pinto on 05-16-2022 Lymphocytes/100 WBC (Bld) 34.7 % 19-41 [facility] Blood monocytes/100 leukocyt esOrdered By: Dr. Pinto on 05-16-2022 Monocytes/100 WBC (Bld) 7.9 % 0-10 [facility] Blood platelet mean volumeOr dered By: Dr. Pinto on 05-16-2022 Platelet mean volume (Bld) [Entitic vol] 10.0 fL 6.2-12.0 [facility] Determination of erythrocyte mean corpuscular volume (MCV)Ordered By: Dr. Pinto on 05-16-2022 MCV (RBC) [Entitic vol] 89.7 fL 81-99 [facility] Hematocrit Auto (Bld) [Volum e fraction]Ordered By: Dr. Pinto on 05-16-2022 Hematocrit (Bld) [Volume fraction] 42.0 % 37-47 [facility] - Chemistry and C hemistry - challengeOrdered By: Dr. Pinto on 05-16-2022 ALP [Catalytic activity/Vol] 88 U/L 45-117 [facility] ALT [Catalytic activity/Vol] 18 U/L 13-56 [facility] CO2 [Moles/Vol] 29.0 mmol/L 21.0-32.0 [facility] Free T4 [Mass/Vol] 1.51 ng/dL 0.76-1.46 [facility] Globulin (S) [Mass/Vol] 3.9 g/dL 2.2-4.2 [facility] Urea nitrogen/Creatinine [Mass ratio] 12.3 mg/mg 10-20 [facility] - Hematology and Cell countsOrdered By: Dr. Pinto on 05-16-2022 Erythrocyte distribution width (RBC) [Entitic vol] 42.2 fL 35.1-43.9 [facility] Erythrocyte distribution width (RBC) [Ratio] 12.8 % 11.6-14.6 [facility] Immature granulocytes/100 WBC (Bld) 0.200 % 0.0-0.9 [facility] Comment on above: IG% - Immature Granu locytes (promyelocytes, myelocytes and metamyelocytes) > 1% indicates that a LEFT SHIFT is Present. MCH (RBC) [Entitic mass] 28.0 pg 27.0-32.0 [facility] Nucleated RBC/100 WBC (Bld) [Ratio] 0 % 0-5 [facility] MCHC Auto (RBC) [Mass/Vol]Or dered By: Dr. Pinto on 05-16-2022 MCHC (RBC) [Mass/Vol] 31.2 g/dL 32-36 [facility] No Panel InformationOrdered By: Dr. Pinto on 05-16-2022 Estimated GFR (MDRD) Amer 72 mL/min >60 [facility] Comment on above: GFR Calc Estimated GFR (MDRD) Non-Af Amer 60 mL/min >60 [facility] Comment on above: Non- GFR Calc Free Triiodothyronine (T3) pg/dL 2.5 pg/mL 2.18-3.98 [facility] Thyroid Stimulating Hormone (TSH) 0.96 uIU/mL 0.358-3.74 [facility] Vitamin D 25-Hydroxy 38.4 ng/mL [facility] Comment on above: Vitamin D 25(OH) Sta tus Range Deficiency <20 ng/mL (50nmol/L) Insufficiency 20 - 30 ng/mL (50 - 75 nmol/L) Sufficiency 30 - 100 ng/mL (75 - 250 nmol/L) Toxicity >100 ng/mL (>250 nmol/L) Platelets bldOrdered By: Dr. Pinto on 05-16-2022 Platelets (Bld) [#/Vol] 242 10*3/uL 150-450 [facility] Serum or plasma albumin veena urement (mass/volume)Ordered By: Dr. Pinto on 05-16-2022 Albumin [Mass/Vol] 3.7 g/dL 3.2-5.0 [facility] Serum or plasma albumin/glob ulin mass ratioOrdered By: Dr. Pinto on 05-16-2022 Albumin/Globulin [Mass ratio] 0.9 {ratio} 0.9-2.4 [facility] Serum or plasma calcium veena urement (mass/volume)Ordered By: Dr. Pinto on 05-16-2022 Calcium [Mass/Vol] 9.3 mg/dL 8.5-10.1 [facility] Serum or plasma creatinine m easurement (mass/volume)Ordered By: Dr. Pinto on 05-16-2022 Creatinine [Mass/Vol] 0.98 mg/dL 0.55-1.02 [facility] Comment on above: The validity of the calculated GFR & GFRAA in patients over 70 years has not been determined. Clinical correlation is essential. Serum or plasma urea nitroge n measurement (mass/volume)Ordered By: Dr. Pinto on 05-16-2022 Urea nitrogen [Mass/Vol] 12 mg/dL 7-18 [facility] Thin prep Papanicolaou smear with manual screeningOrdered By: Dr. Pinto on 05-16-2022 Thin prep Papanicolaou smear with manual screening 14 U/L 15-37 [facility] Thin prep Papanicolaou smear with manual screening 7 5-15 [facility] Laboratory - Chemistry and C hemistry - challengeon 12-07-2021 Free T4 [Mass/Vol] 1.37 ng/dL 0.76-1.46 [facility] Work Phone: No Panel Informationon 12-07 Free Triiodothyronine (T3) pg/dL 2.8 pg/mL 2.18-3.98 [facility] Work Phone: Thyroid Stimulating Hormone (TSH) 0.53 uIU/mL 0.358-3.74 [facility] Work Phone: Final Surgical Pathology Rep dena 06-27-2018 Final Surgical Pathology Report . Pathology Reports Accession: Collected Date/Time: Received Date/Time: Pathologist: [id number] 06/19/2018 09:42 EST 06/20/2018 09:42 DO OMI [...] CONSISTENT WITH HYPERPLASTIC POLYP, SIGMOID COLON. COMMENT: [facility] - A# [id number] CLINICAL INFORMATION: NAUSEA, VOMITING, WEIGHT LOSS SPECIMEN: [...] Reports Accession: Collected Date/Time: Received Date/Time: Pathologist: [id number] 06/19/2018 09:42 EST 06/20/2018 09:42 DO OMI KOHLER GROSS DESCRIPTION: F. Received in formalin labeled F is a 0.3 cm suarez glistening soft tissue. TS -1 Dictated by Lynn ROLDAN ([facility]) MICROSCOPIC DESCRIPTION: A-F) Slides reviewed. Electronically Signed by Pathology Report verified by [facility] Electronically signed by OMI GUTIERREZ DO Sign out Date: 06/27/2018 14:05 Performing Lab: [facility], [address] [place] [id number] [place] [address] ([place]) Comment on above: Performed By: #### S PFR #### [address] [address] VitD, 1,25 Dihydroxyon 06-24 1,25 Dihydroxy VitD2 4.2 pg/mL Normal [facility] 1,25 Dihydroxy VitD3 35.6 pg/mL [facility] Vit D,1,25 DiOH for research. Normal 15.0-60.0 [facility] Vital Signs Date Time Vital Sign Value Performing Clinician Facility 02-03-2025 09:05-0400 Body height 160.[address] Cheikh Pinto MD Work Phone: [facility] 02-03-2025 09:05-0400 Body mass index (BMI) [Ratio] 26.9 kg/m2 Dr. Cheikh Pinto MD Work Phone: [facility] 02-03-2025 09:05-0400 Body temperature 98.6 [degF] Dr. Cheikh Pinto MD Work Phone: [facility] 02-03-2025 09:05-0400 Body weight 69.[address] Cheikh Pinto MD Work Phone: [facility] 02-03-2025 09:05-0400 Diastolic blood pressure 88 mm[Hg] Dr. Cheikh Pinto MD Work Phone: [facility] 02-03-2025 09:05-0400 Heart rate 64 /min Dr. Cheikh Pinto MD Work Phone: [facility] 02-03-2025 09:05-0400 Respiratory rate 16 /min Dr. Cheikh Pinto MD Work Phone: [facility] 02-03-2025 09:05-0400 SaO2% (BldA) [Mass fraction] 97 % Dr. Cheikh Pinto MD Work Phone: [facility] 02-03-2025 09:05-0400 Systolic blood pressure 148 mm[Hg] Dr. Cheikh Pinto MD Work Phone: [facility] 12-29-2024 12:45-0400 Body height 157.5 cm Brent Cantu DO Work Phone: [facility] 12-29-2024 12:45-0400 Body mass index (BMI) [Ratio] 27.82 kg/m2 Brent Galveze DO Work Phone: [facility] 12-29-2024 12:45-0400 Body weight 69 kg Brent Cantu DO Work Phone: [facility] 12-29-2024 12:45-0400 Diastolic blood pressure 83 mm[Hg] Brent Galveze DO Work Phone: [facility] 12-29-2024 12:45-0400 Heart rate 70 /min Brent Galveze DO Work Phone: [facility] 12-29-2024 12:45-0400 Systolic blood pressure 143 mm[Hg] Brent Galveze DO Work Phone: [facility] 12-21-2024 11:07-0400 Body height 160.[address] Cheikh Pinto MD Work Phone: [facility] 12-21-2024 11:07-0400 Body mass index (BMI) [Ratio] 26.9 kg/m2 Dr. Cheikh Pinto MD Work Phone: [facility] 12-21-2024 11:07-0400 Body temperature 98.6 [degF] Dr. Cheikh Pinto MD Work Phone: [facility] 12-21-2024 11:07-0400 Body weight 69.[address] Cheikh Pinto MD Work Phone: [facility] 12-21-2024 11:07-0400 Diastolic blood pressure 78 mm[Hg] Dr. Cheikh Pinto MD Work Phone: [facility] 12-21-2024 11:07-0400 Heart rate 69 /min Dr. Cheikh Pinto MD Work Phone: [facility] 12-21-2024 11:07-0400 Respiratory rate 16 /min Dr. Cheikh Pinto MD Work Phone: [facility] 12-21-2024 11:07-0400 SaO2% (BldA) [Mass fraction] 98 % Dr. Cheikh Pinto MD Work Phone: [facility] 12-21-2024 11:07-0400 Systolic blood pressure 128 mm[Hg] Dr. Cheikh Pinto MD Work Phone: [facility] 10-19-2024 14:11-0400 Body height 160.[address] Cheikh Pinto MD Work Phone: [facility] 10-19-2024 14:11-0400 Body mass index (BMI) [Ratio] 27.6 kg/m2 Dr. Cheikh Pinto MD Work Phone: [facility] 10-19-2024 14:11-0400 Body temperature 98.6 [degF] Dr. Cheikh Pinto MD Work Phone: [facility] 10-19-2024 14:11-0400 Body weight 70.[address] Cheikh Pinto MD Work Phone: [facility] 10-19-2024 14:11-0400 Diastolic blood pressure 95 mm[Hg] Dr. Cheikh Pinto MD Work Phone: [facility] 10-19-2024 14:11-0400 Heart rate 66 /min Dr. Cheikh Pinto MD Work Phone: [facility] 10-19-2024 14:11-0400 Respiratory rate 16 /min Dr. Cheikh Pinto MD Work Phone: [facility] 10-19-2024 14:11-0400 SaO2% (BldA) [Mass fraction] 95 % Dr. Cheikh Pinto MD Work Phone: [facility] 10-19-2024 14:11-0400 Systolic blood pressure 190 mm[Hg] Dr. Cheikh Pinto MD Work Phone: [facility] 10-16-2023 12:19-0400 Diastolic blood pressure 84 mm[Hg] Bina Overton MD Work Phone: [facility] 10-16-2023 12:19-0400 Heart rate 61 /min Bina Overton MD Work Phone: [facility] 10-16-2023 12:19-0400 Respiratory rate 18 /min Bina Overton MD Work Phone: [facility] 10-16-2023 12:19-0400 SaO2% (BldA) [Mass fraction] 99 % Bina Overton MD Work Phone: [facility] 10-16-2023 12:19-0400 Systolic blood pressure 184 mm[Hg] Bina Overton MD Work Phone: [facility] 10-16-2023 11:45-0400 Body temperature 97.5 [degF] Bina Overton MD Work Phone: [facility] 09-16-2023 08:34-0400 Body height 157.5 cm Bina Overton MD Work Phone: [facility] 09-16-2023 08:34-0400 Body mass index (BMI) [Ratio] 29.15 kg/m2 Bina Overton MD Work Phone: [facility] 09-16-2023 08:34-0400 Body temperature 97.39 [degF] Bina Overton MD Work Phone: [facility] 09-16-2023 08:34-0400 Body weight 72.3 kg Bina Overton MD Work Phone: [facility] 09-16-2023 08:34-0400 Diastolic blood pressure 98 mm[Hg] Bina Overton MD Work Phone: [facility] 09-16-2023 08:34-0400 Heart rate 64 /min Bina Overton MD Work Phone: [facility] 09-16-2023 08:34-0400 SaO2% (BldA) [Mass fraction] 97 % Bina Overton MD Work Phone: [facility] 09-16-2023 08:34-0400 Systolic blood pressure 148 mm[Hg] Bina Overton MD Work Phone: [facility] 08-08-2023 13:55-0400 Body height 160.[address] Cheikh Pinto Work Phone: [facility] 08-08-2023 13:55-0400 Body mass index (BMI) [Ratio] 27.8 kg/m2 Dr. Cheikh Pinto Work Phone: [facility] 08-08-2023 13:55-0400 Body temperature 98.1 [degF] Dr. Cheikh Pinto Work Phone: [facility] 08-08-2023 13:55-0400 Body weight 71.[address] Cheikh Pinto Work Phone: [facility] 08-08-2023 13:55-0400 Diastolic blood pressure 88 mm[Hg] Dr. Cheikh Pinto Work Phone: [facility] 08-08-2023 13:55-0400 Heart rate 69 /min Dr. Cheikh Pinto Work Phone: [facility] 08-08-2023 13:55-0400 Respiratory rate 16 /min Dr. Cheikh Pinto Work Phone: [facility] 08-08-2023 13:55-0400 SaO2% (BldA) [Mass fraction] 98 % Dr. Cheikh Pinto Work Phone: [facility] 08-08-2023 13:55-0400 Systolic blood pressure 152 mm[Hg] Dr. Cheikh Pinto Work Phone: [facility] 07-11-2023 14:11-0400 Body mass index (BMI) [Ratio] 27.4 kg/m2 Dr. Cheikh Pinto Work Phone: [facility] 07-11-2023 14:11-0400 Body temperature 98.2 [degF] Dr. Cheikh Pinto Work Phone: [facility] 07-11-2023 14:11-0400 Body weight 70.[address] Chekih Pinto Work Phone: [facility] 07-11-2023 14:11-0400 Diastolic blood pressure 81 mm[Hg] Dr. Cheikh Pinto Work Phone: [facility] 07-11-2023 14:11-0400 Heart rate 64 /min Dr. Cheikh Pinto Work Phone: [facility] 07-11-2023 14:11-0400 Respiratory rate 17 /min Dr. Cheikh Pinto Work Phone: [facility] 07-11-2023 14:11-0400 SaO2% (BldA) [Mass fraction] 98 % Dr. Cheikh Pinto Work Phone: [facility] 07-11-2023 14:11-0400 Systolic blood pressure 151 mm[Hg] Dr. Cheikh Pinto Work Phone: [facility] 12-18-2022 17:21-0400 Body height 160.[address] Cheikh Pinto Work Phone: [facility] 12-18-2022 17:21-0400 Body mass index (BMI) [Ratio] 24.9 kg/m2 Dr. Cheikh Pinto Work Phone: [facility] 12-18-2022 17:21-0400 Body temperature 98.2 [degF] Dr. Cheikh Pinto Work Phone: [facility] 12-18-2022 17:21-0400 Body weight 63.[address] Cheikh Pinto Work Phone: [facility] 12-18-2022 17:21-0400 Diastolic blood pressure 68 mm[Hg] Dr. Cheikh Pinto Work Phone: [facility] 12-18-2022 17:21-0400 Heart rate 74 /min Dr. Cheikh Pinto Work Phone: [facility] 12-18-2022 17:21-0400 Respiratory rate 14 /min Dr. Cheikh Pinto Work Phone: [facility] 12-18-2022 17:21-0400 SaO2% (BldA) [Mass fraction] 99 % Dr. Cheikh Pinto Work Phone: [facility] 12-18-2022 17:21-0400 Systolic blood pressure 96 mm[Hg] Dr. Cheikh Pinto Work Phone: [facility] 12-04-2022 08:49-0400 Body height 157.5 cm Brent Cantu DO Work Phone: [facility] 12-04-2022 08:49-0400 Body weight 66 kg Brent Cantu DO Work Phone: [facility] 12-04-2022 08:49-0400 Diastolic blood pressure 83 mm[Hg] Brent Cantu DO Work Phone: [facility] 12-04-2022 08:49-0400 Heart rate 60 /min Brent Cantu DO Work Phone: [facility] 12-04-2022 08:49-0400 Systolic blood pressure 181 mm[Hg] Brent Cantu DO Work Phone: [facility] 11-14-2022 13:03-0400 Body height 160.[address] Cheikh Pinto Work Phone: [facility] 11-14-2022 13:03-0400 Body mass index (BMI) [Ratio] 24.8 kg/m2 Dr. Cheikh Pinto Work Phone: [facility] 11-14-2022 13:03-0400 Body temperature 97.8 [degF] Dr. Cheikh Pinto Work Phone: [facility] 11-14-2022 13:03-0400 Body weight 63.[address] Cheikh Pinto Work Phone: [facility] 11-14-2022 13:03-0400 Diastolic blood pressure 78 mm[Hg] Dr. Cheikh Pinto Work Phone: [facility] 11-14-2022 13:03-0400 Heart rate 66 /min Dr. Cheikh Pinto Work Phone: [facility] 11-14-2022 13:03-0400 Respiratory rate 16 /min Dr. Cheikh Pinto Work Phone: [facility] 11-14-2022 13:03-0400 SaO2% (BldA) [Mass fraction] 95 % Dr. Cheikh Pinto Work Phone: [facility] 11-14-2022 13:03-0400 Systolic blood pressure 122 mm[Hg] Dr. Cheikh Pinto Work Phone: [facility] 11-10-2022 05:32-0400 Body height 160.[address] Cheikh Pinto Work Phone: [facility] 11-10-2022 05:32-0400 Body mass index (BMI) [Ratio] 25.2 kg/m2 Dr. Cheikh Pinto Work Phone: [facility] 11-10-2022 05:32-0400 Body temperature 97.3 [degF] Dr. Cheikh Pinto Work Phone: [facility] 11-10-2022 05:32-0400 Body weight 64.[address] Cheikh Pinto Work Phone: [facility] 11-10-2022 05:32-0400 Diastolic blood pressure 100 mm[Hg] Dr. Cheikh Pinto Work Phone: [facility] 11-10-2022 05:32-0400 Heart rate 94 /min Dr. Cheikh Pinto Work Phone: [facility] 11-10-2022 05:32-0400 Respiratory rate 20 /min Dr. Cheikh Pinto Work Phone: [facility] 11-10-2022 05:32-0400 SaO2% (BldA) [Mass fraction] 98 % Dr. Cheikh Pinto Work Phone: [facility] 11-10-2022 05:32-0400 Systolic blood pressure 139 mm[Hg] Dr. Cheikh Pinto Work Phone: [facility] 11-01-2022 00:53-0400 Diastolic blood pressure 74 mm[Hg] Dr. Cheikh Pinto Work Phone: [facility] 11-01-2022 00:53-0400 Heart rate 70 /min Dr. Cheikh Pinto Work Phone: [facility] 11-01-2022 00:53-0400 Respiratory rate 18 /min Dr. Cheikh Pinto Work Phone: [facility] 11-01-2022 00:53-0400 SaO2% (BldA) [Mass fraction] 97 % Dr. Cheikh Pinto Work Phone: [facility] 11-01-2022 00:53-0400 Systolic blood pressure 128 mm[Hg] Dr. Cheikh Pinto Work Phone: [facility] 10-31-2022 20:23-0400 Body mass index (BMI) [Ratio] 23.9 kg/m2 Dr. Cheikh Pinto Work Phone: [facility] 10-31-2022 20:23-0400 Body temperature 97.9 [degF] Dr. Cheikh Pinto Work Phone: [facility] 10-31-2022 20:23-0400 Body weight 61.[address] Cheikh Pinto Work Phone: [facility] 10-25-2022 15:30-0400 Body mass index (BMI) [Ratio] 25.2 kg/m2 Dr. Cheikh Pinto Work Phone: [facility] 10-25-2022 15:30-0400 Body temperature 97.6 [degF] Dr. Cheikh Pinto Work Phone: [facility] 10-25-2022 15:30-0400 Body weight 64.[address] Cheikh Pinto Work Phone: [facility] 10-25-2022 15:30-0400 Diastolic blood pressure 94 mm[Hg] Dr. Cheikh Pinto Work Phone: [facility] 10-25-2022 15:30-0400 Heart rate 57 /min Dr. Cheikh Pinto Work Phone: [facility] 10-25-2022 15:30-0400 Respiratory rate 16 /min Dr. Cheikh Pinto Work Phone: [facility] 10-25-2022 15:30-0400 SaO2% (BldA) [Mass fraction] 96 % Dr. Cheikh Pinto Work Phone: [facility] 10-25-2022 15:30-0400 Systolic blood pressure 163 mm[Hg] Dr. Cheikh Pinto Work Phone: [facility] 09-11-2022 07:38-0400 Body height 160 cm Brent Cantu DO Work Phone: [facility] 09-11-2022 07:38-0400 Body weight 66.9 kg Brent Cantu DO Work Phone: [facility] 09-11-2022 07:38-0400 Diastolic blood pressure 78 mm[Hg] Brent Cantu DO Work Phone: [facility] 09-11-2022 07:38-0400 Heart rate 73 /min Brent Cantu Work Phone: [facility] 09-11-2022 07:38-0400 Systolic blood pressure 118 mm[Hg] Brent Cantu Work Phone: [facility] 05-16-2022 14:51-0500 Body temperature 97.3 [degF] Dr. Cheikh Pinto Work Phone: [facility] 05-16-2022 14:51-0500 Body weight 71.[address] Cheikh Pinto Work Phone: [facility] 05-16-2022 14:51-0500 Diastolic blood pressure 98 mm[Hg] Dr. Cheikh Pinto Work Phone: [facility] 05-16-2022 14:51-0500 Heart rate 67 /min Dr. Cheikh Pinto Work Phone: [facility] 05-16-2022 14:51-0500 Respiratory rate 16 /min Dr. Cheikh Pinto Work Phone: [facility] 05-16-2022 14:51-0500 SaO2% (BldA) [Mass fraction] 97 % Dr. Cheikh Pinto Work Phone: [facility] 05-16-2022 14:51-0500 Systolic blood pressure 168 mm[Hg] Dr. Cheikh Pinto Work Phone: [facility] 02-12-2022 08:06-0400 Body temperature 97.3 [degF] Dr. Cheikh Pinto Work Phone: [facility] 02-12-2022 08:06-0400 Body weight 72.[address] Cheikh Pinto Work Phone: [facility] 02-12-2022 08:06-0400 Diastolic blood pressure 86 mm[Hg] Dr. Cheikh Pinto Work Phone: [facility] 02-12-2022 08:06-0400 Heart rate 67 /min Dr. Cheikh Pinto Work Phone: [facility] 02-12-2022 08:06-0400 Respiratory rate 16 /min Dr. Cheikh Pinto Work Phone: [facility] 02-12-2022 08:06-0400 SaO2% (BldA) [Mass fraction] 95 % Dr. Cheikh Pinto Work Phone: [facility] 02-12-2022 08:06-0400 Systolic blood pressure 135 mm[Hg] Dr. Cheikh Pinto Work Phone: [facility] Encounters Encounter Date Encounter Type Care Provider Facility Start: 02-14-2025 End: 02-16-2025 ambulatory CHEIKH M [facility] Start: 02-10-2025 End: 02-10-2025 Emergency department patient visit [facility] Micheal [facility] Start: 02-03-2025 End: 02-03-[address] Cheikh Pinto MD -[facility] Work Phone: Start: 02-03-2025 End: 02-03-2025 ambulatory Cheikh Pinto Facility:[facility] Start: 02-01-2025 End: 02-01-2025 Emergency department patient visit [facility] Felicia [facility] Start: 01-29-2025 End: 01-29-2025 Emergency department patient visit [facility] Start: 01-20-2025 ambulatory Cheikh Pinto Facility :[facility] Start: 01-18-2025 End: 01-22-2025 Evaluation and management of inpatient CORATTUR CASSIE Facility:[facility] Start: 01-18-2025 End: 01-18-2025 Emergency department patient visit [facility] Start: 01-12-2025 End: 01-12-2025 Emergency department patient visit [facility] Start: 01-01-2025 End: 01-01-2025 Emergency department patient visit RENATA FRANK [facility] Start: 12-29-2024 End: 12-29-2024 Patient encounter procedure Brent Cantu DO Work Phone: Gastroenterology Comment on above: Epigastric pain (Meena bony Dx); Hiatal hernia Start: 12-29-2024 End: 12-29-2024 ambulatory CHEIKH PINTO Facility:[facility] Start: 12-22-2024 End: 12-22-2024 Emergency department patient visit [facility] Start: 12-21-2024 End: 12-21-[address] Cheikh Pinto MD -[facility] Work Phone: Start: 12-21-2024 End: 12-21-[address] Cheikh Pinto MD Work Phone: -[facility] Start: 12-17-2024 End: 12-17-2024 ambulatory [facility] Start: 12-13-2024 End: 12-13-2024 Emergency department patient visit [facility] Start: 12-09-2024 End: 12-09-2024 Emergency department patient visit [facility] Start: 12-06-2024 End: 12-06-2024 Emergency department patient visit [facility] Start: 12-02-2024 End: 12-02-2024 Emergency department patient visit [facility] Start: 11-22-2024 End: 11-22-2024 Emergency department patient visit [facility] Start: 11-19-2024 End: 11-19-2024 Emergency department patient visit [facility] Start: 10-29-2024 End: 10-29-2024 Emergency department patient visit [facility] Start: 10-26-2024 End: 10-26-2024 Emergency department patient visit CHEIKH M [facility] Start: 10-19-2024 End: 10-19-[address] Cheikh Pinto MD -[facility] Work Phone: Start: 10-19-2024 End: 10-19-[address] Cheikh Pinto MD Work Phone: -[facility] Start: 10-12-2024 End: 10-12-2024 Telephone encounter Brent Cantu Work Phone: Gastroenterology Comment on above: Appointment Start: 10-12-2024 End: 10-13-2024 ambulatory [facility] Start: 10-11-2024 End: 10-11-2024 Emergency department patient visit [facility] Start: 10-06-2024 End: 10-06-2024 Emergency department patient visit [facility] Start: 09-01-2024 End: 09-01-2024 Emergency department patient visit [facility] Start: 08-24-2024 End: 08-24-2024 Emergency department patient visit [facility] Start: 08-19-2024 End: 08-19-2024 ambulatory [facility] Start: 08-18-2024 End: 08-18-2024 Emergency department patient visit [facility] Start: 07-29-2024 End: 07-29-2024 Emergency department patient visit [facility] Start: 07-20-2024 End: 07-20-2024 Emergency department patient visit [facility] Start: 07-10-2024 End: 07-10-2024 ambulatory [facility] Start: 07-01-2024 End: 07-01-2024 Emergency department patient visit [facility] Start: 05-20-2024 End: 05-20-2024 Emergency department patient visit CHEIKH PINTO [facility] Start: 05-13-2024 End: 05-13-2024 Emergency department patient visit ERWIN Duarte JOSE [facility] Start: 03-07-2024 End: 03-07-2024 Emergency department patient visit CAN CANTOR [facility] Start: 02-24-2024 End: 02-24-2024 ambulatory Cheikh Pinto Facility:[facility] Start: 02-19-2024 End: 02-20-2024 Emergency department patient visit Lázaro Bermeo Facility:[facility] Start: 02-17-2024 End: 02-18-2024 ambulatory Vaishali Ren Facility:[facility] Start: 10-16-2023 ambulatory MATT ACOSTA Facility:[facility] Start: 10-16-2023 End: 10-16-2023 Subsequent hospital visit by physician Bina Overton MD Work Phone: [facility] Comment on above: Dysphagia, unspecifi ed type [R13.10] Start: 09-16-2023 End: 09-16-2023 Patient encounter procedure Bina Overton MD Work Phone: General Surgery Comment on above: Dysphagia, unspecifi ed type (Primary Dx) Start: 08-08-2023 End: 08-08-[address] Cheikh Pinto Work Phone: [facility] Work Phone: Start: 08-08-2023 End: 08-08-[address] Cheikh Pinto Work Phone: [facility] Start: 08-08-2023 End: 08-08-[address] Cheikh Pinto Work Phone: [facility] Work Phone: Start: 07-11-2023 End: 07-11-[address] Cheikh Pinto Work Phone: [facility] [place] Work Phone: Start: 12-25-2022 Telephone encounter Brent Cantu DO Work Phone: Gastroenterology Comment on above: Results - Ct Start: 12-19-2022 ambulatory Brent duarte DO Work Phone: Gastroenterology Comment on above: X ray Start: 12-18-2022 End: 12-18-2022 Emergency department patient visit [facility]ikh [facility] Start: 12-04-2022 End: 12-04-2022 Patient encounter procedure Brent Cantu DO Work Phone: Gastroenterology Comment on above: History of malignant carcinoid tumor (Primary Dx); Nausea and vomiting, unspecified vomiting type; Malnutrition of mild degree (HCC) Start: 11-14-2022 End: 11-14-[address] Cheikh Pinto Work Phone: [facility] Work Phone: Start: 11-14-2022 End: 11-14-[address] Cheikh Pinto Work Phone: [facility] Work Phone: Start: 11-14-2022 End: 11-14-[address] Cheikh Pinto Work Phone: [facility] [place] Work Phone: Start: 11-10-2022 End: 11-10-2022 Emergency department patient visit Dr. Cheikh Pinto [facility] Start: 10-31-2022 End: 11-01-2022 Emergency department patient visit Dr. Cheikh Pinto [facility] Start: 10-25-2022 End: 10-25-[address] Cheikh Pinto Work Phone: [facility] [place] Work Phone: Start: 10-10-2022 Telephone encounter Brent Cantu DO Work Phone: Gastroenterology Comment on above: Received Outside Med ical Records Start: 10-04-2022 Telephone encounter Brent Cantu DO Work Phone: Gastroenterology Comment on above: Patient Update; Maria T ent Question Start: 09-11-2022 End: 09-11-2022 Subsequent hospital visit by physician [facility] Comment on above: Constipation, unspec ified constipation type [K59.00] Start: 09-11-2022 End: 09-11-2022 Patient encounter procedure Brent Cantu DO Work Phone: Gastroenterology Comment on above: Constipation, unspec ified constipation type (Primary Dx); Nausea and vomiting, unspecified vomiting type Start: 05-16-2022 End: 05-16-[address] Cheikh Pinto Work Phone: [facility] Work Phone: Start: 05-16-2022 End: 05-16-[address] [facility] Start: 05-16-2022 End: 05-16-[address] Cheikh Pinto Work Phone: [facility] [place] Start: 02-12-2022 End: 02-12-[address] Cheikh Pinto Work Phone: [facility] [place] Start: 12-07-2021 End: 12-07-2021 [facility] Work Phone: Start: 12-07-2021 End: 12-07-2021 Patient encounter procedure [facility] Procedures Date Procedure Procedure Detail Performing Clinician Start: 02-10-2025 Urinalysis CHEIKH PINTO Comment on above: Result Comment: URINALYSIS Performed By: #### [id number] ####[place] [id number] Start: 12-06-2024 Urinalysis CHEIKH PINTO Comment on above: Result Comment: URINALYSIS Performed By: #### [id number] ####[place] [id number] Start: 12-02-2024 Urinalysis CHEIKH PINTO Comment on above: Result Comment: URINALYSIS Performed By: #### [id number] ####[place] [id number] Start: 11-22-2024 Urinalysis CHEIKH PINTO Comment on above: Result Comment: URINALYSIS Performed By: #### [id number] ####[place] [id number] Start: 11-19-2024 Urinalysis CHEIKH PINTO Comment on above: Result Comment: URINALYSIS Performed By: #### [id number] ####[place] [id number] Start: 10-12-2024 Urinalysis CHEIKH PINTO Comment on above: Result Comment: URINALYSIS Performed By: #### [id number] ####[place] [id number] Start: 03-07-2024 Urinalysis CHEIKH PINTO Comment on above: Result Comment: URINALYSIS Performed By: #### [id number] ####[place] [id number] Start: 10-16-2023 Esophagogastroduodenoscopy transoral diagnostic Bina Overton MD Work Phone: Start: 12-18-2022 Computed [...] Activity Detail Author Start: 11-07-2028 Colonoscopy COLONOSCOPY [facility] Start: 11-07-2028 COLORECTAL CANCER SCREENING COLORECTAL CANCER SCREENING [facility] Start: 11-07-2028 Screening for malignant neoplasm of colon [facility] Start: 03-30-2026 Urine microalbumin profile [facility] Start: 2026 RSV Vaccine (1 - 1-dose 75+ series) RSV Vaccine (1 - 1-dose 75+ series) [facility] Start: 10-04-2025 DIABETES SCREEN DIABETES SCREEN [facility] Start: 10-04-2025 Diabetes Screening Diabetes Screening [facility] Start: 09-04-2025 DIABETES SCREEN DIABETES SCREEN [facility] Start: 12-14-2024 Influenza vaccination [facility] Start: 11-16-2024 End: 11-16-2024 ambulatory 11/16/2024 1:40 PM EDT [facility] G[facility]enterology [address] [place] [address] Brent Cantu DO [address] [place] [address] gp f/u/hospital f/u swallowing issues Gastroenterology Comment on above: gp f/u/hospital f/u swallowing issues Start: 04-15-2024 Advance Directive Discussion Advance Directive Discussion [facility] Start: 04-15-2024 Medicare Advantage Annual Wellness Visit Medicare Advantage Annual Wellness Visit [facility] Start: 12-15-2023 Covid-19 Vaccine ( season) Covid-19 Vaccine ( season) [facility] Start: 12-15-2023 Influenza vaccination [facility] Start: 10-16-2023 End: 10-16-2023 Patient encounter procedure 10/16/2023 3:00 PM EDT Appointment [facility] [address] [place] [address] Bina Overton MD [address] [place] [address] egd [facility] Comment on above: egd Start: 08-08-2023 Patient referral [facility] Work Phone: Start: 04-15-2023 Advance Directive Discussion Advance Directive Discussion [facility] Start: 04-15-2023 Behavioral Health Screening Behavioral Health Screening [facility] Start: 12-14-2022 Covid-19 Vaccine ( season) Covid-19 Vaccine () [facility] Start: 12-14-2022 Influenza vaccination [facility] Start: 04-15-2022 ADVANCE DIRECTIVE DISCUSSION ADVANCE DIRECTIVE DISCUSSION [facility] Start: 04-15-2022 DEPRESSION ASSESSMENT DEPRESSION ASSESSMENT [facility] Start: 04-23-2021 COVID-19 VACCINE (4 - Booster for Moderna series) COVID-19 VACCINE (4 - Booster for Moderna series) [facility] Start: 04-23-2021 COVID-19 VACCINE (4 - Moderna series) COVID-19 VACCINE (4 - Moderna series) [facility] Start: 12-14-2019 Lipid 1996 panel - Serum or Plasma Lipid Screening [facility] Start: 12-14-2019 Lipid panel Lipid Screening [facility] Start: 12-14-2019 LIPID SCREEN LIPID SCREEN [facility] Start: 03-30-2017 Mammography [facility] Start: 03-30-2017 Screening for malignant neoplasm of breast Mammogram Screening [facility] Start: 01-03-2016 BONE DENSITY BONE DENSITY [facility] Start: 01-03-2016 Bone Density Screening Bone Density Screening [facility] Start: 01-03-2016 Pneumococcal Vaccine: 65+ (1 - PCV) Pneumococcal Vaccine: 65+ (1 - PCV) [facility] Start: 01-03-2016 PNEUMOCOCCAL: 65+ (1 - PCV) PNEUMOCOCCAL: 65+ (1 - PCV) [facility] Start: 01-03-2016 Screening for osteoporosis Bone Density Screening [facility] Start: 2011 RSV Vaccine (1 - 1-dose 60+ series) RSV Vaccine (1 - 1-dose 60+ series) [facility] Start: 2001 SHINGRIX VACCINE (1 of 2) SHINGRIX VACCINE (1 of 2) [facility] Start: 01-03-1996 COLOGUARD (FIT-DNA) COLOGUARD (FIT-DNA) [facility] Start: 01-03-[address] COLONOGRAPHY [facility] Start: 01-03-1996 FECAL OCCULT BLOOD FECAL OCCULT BLOOD [facility] Start: 01-03-1996 Screening for malignant neoplasm of colon [facility] Start: 01-03-1996 SIGMOIDOSCOPY SIGMOIDOSCOPY [facility] Start: 1969 ANNUAL PCP TEAM CHRONIC DISEASE VISIT ANNUAL PCP TEAM CHRONIC DISEASE VISIT [facility] Start: 1969 Anxiety Screening Anxiety Screening [facility] Start: 1969 Depression Screening Depression Screening [facility] Start: 1969 HEPATITIS C SCREENING HEPATITIS C SCREENING [facility] Start: 1969 Hepatitis C screening Hepatitis C Screening [facility] 5-Hydroxyindoleaceta te [Mass/time] in 24 hour Urine HIAA-5 QUANT 24H UR Lab Routine History of malignant carcinoid tumor Ordered: 12/04/2022 [facility] Work Phone: Comment on above: Ordered: 12/04/2022 CBC W Auto Different ial panel - Blood [facility] End: 09-15-2024 EGD DIAGNOSTIC EGD DIAGNOSTIC Endoscopy Routine Dysphagia, unspecified type 1 Occurrences starting 09/16/2023 until 09/15/2024 [facility] Work Phone: Comment on above: 1 Occurrences starting 09/16/2023 until 09/15/2024 Lipid 1996 panel - S monica or Plasma [facility] Patient Education [facility] Work Phone: Patient referral [facility] Work Phone: End: 01-28-2026 RF Gastrointestinal tract upper Views W barium contrast PO XR UPPER GI SINGLE CONTRAST Radiology Routine Epigastric pain 1 Occurrences starting 12/29/2024 until 01/28/2026 [facility] Work Phone: Comment on above: 1 Occurrences starting 12/29/2024 until 01/28/[address] [facility] Work Phone: Comment on above: Release Upon Ordering for 1 Occurrences starting 10/16/2023, 1 completed T4 free measurement [facility] Thyroid stimulating hormone measurement [facility] Triiodothyronine, fr ee measurement [facility] Vitamin B12 measurement [facility] Vitamin D, 25-hydrox y measurement [facility] End: 01-28-2026 XR GI SMALL BOWEL FOLLOW-THRU XR GI SMALL BOWEL FOLLOW-THRU Radiology Routine Epigastric pain 1 Occurrences starting 12/29/2024 until 01/28/2026 [facility] Comment on above: 1 Occurrences starting 12/29/2024 until 01/28/2026 [facility] Immunizations Immunization Date Immunization Notes Care Provider [facility] 02-24-2024 Seasonal trivalent influenza vaccine, adjuvanted, preservative free Dr. Cheikh Pinto MD Work Phone: [facility] 02-24-2024 influenza virus vaccine, unspecified formulation Brent Cantu DO Work Phone: [facility] 01-27-2022 influenza virus vaccine, unspecified formulation Brent Cantu DO Work Phone: [facility] 02-03-2020 influenza, injectabl e, quadrivalent, preservative free Dr. Cheikh Pinto Work Phone: [facility] 02-03-2020 influenza, seasonal, injectable [facility] 03-30-2016 influenza, high dose seasonal, preservative-free Brent Cantu DO Work Phone: [facility] 03-30-2016 tetanus toxoid, redu rolan diphtheria toxoid, and acellular pertussis vaccine, adsorbed Brent Cantu DO Work Phone: [facility] Payers Date Payer Category Payer Self-pay [id number] 2019 Medicare (Managed Care) PRIMETIM E [id number] 2019 Unknown PRIMETIME PRIMET VIVEK HMO POS [id number] 2019-Present [phone] [place] [id number] O [id number] 2019 Unknown [id number] 2012 Unknown [id number] 1950 Unknown [id number] 2.16.840.1.018125.3.579.2.6 51 1950 Unknown [id number] 2.16.840.1.422606.3.579.2.6 51 1950 Unknown [id number] 2.16.840.1.503730.3.579.2.6 51 1950 Unknown [id number] 2.16.840.1.358144.3.579.2.6 51 1950 Unknown [id number] 2.16.840.1.862622.3.579.2.6 51 1951 Unknown [id number] 2.16.840.1.047734.3.579.2.6 51 1951 Unknown [id number] 2.16.840.1.218066.3.579.2.6 51 1951 Unknown [id number] 2.16.840.1.152157.3.579.2.6 51 1951 Unknown [id number] 2.16.840.1.921902.3.579.2.6 51 1951 Unknown [id number] 2.16.840.1.758202.3.579.2.6 51 1951 Unknown [id number] 2.16.840.1.317116.3.579.2.6 51 1951 Unknown [id number] 2.16.840.1.491333.3.579.2.6 51 1951 Unknown [id number] 2.16.840.1.662759.3.579.2.6 51 1951 Unknown [id number] 2.16.840.1.635672.3.579.2.6 51 1951 Unknown [id number] 2.16.840.1.582419.3.579.2.6 51 1951 Unknown [id number] 2.16.840.1.639330.3.579.2.6 51 1951 Unknown [id number] 2.16.840.1.920404.3.579.2.6 51 1951 Unknown [id number] 2.16.840.1.307426.3.579.2.6 51 1951 Unknown [id number] 2.16.840.1.964657.3.579.2.6 51 1951 Unknown [id number] 2.16.840.1.343427.3.579.2.6 51 1951 Unknown [id number] 2.16.840.1.669531.3.579.2.6 51 1951 Unknown [id number] 2.16.840.1.369255.3.579.2.6 51 1951 Unknown [id number] 2.16.840.1.641316.3.579.2.6 51 1951 Unknown [id number] 2.16.840.1.608130.3.579.2.6 51 1951 Unknown [id number] 2.16.840.1.330845.3.579.2.6 51 1951 Unknown [id number] 2.16.840.1.036464.3.579.2.6 51 1951 Unknown [id number] 2.16.840.1.117024.3.579.2.6 51 1951 Unknown [id number] 2.16.840.1.401632.3.579.2.6 51 1951 Unknown [id number] 2.16.840.1.258246.3.579.2.6 51 1951 Unknown [id number] 2.16.840.1.320697.3.579.2.6 51 1950 Unknown [id number] 2.16.840.1.999876.3.579.2.6 51 Medicare Unknown [id number] 2.16.840.1.277250.3.579.2.4 62 Unknown [id number] 2.16.840.1.769323.3.579.2.4 62 Unknown [id number] 2.16.840.1.444679.3.579.2.4 62 Unknown [id number] 2.16.840.1.995149.3.579.2.4 62 Unknown [id number] 2.16.840.1.290145.3.579.2.4 62 Unknown [id number] 2.16.840.1.158778.3.579.2.4 62 Unknown [id number] 2.16.840.1.829444.3.579.2.4 62 Unknown [id number] 2.16.840.1.159205.3.579.2.4 62 Unknown [id number] 2.16.840.1.108005.3.579.2.4 62 Social History Date Type Detail Facility Start: 01-24-2021 End: 07-11-2023 Tobacco smoking status ORIS Unknown if ever smoked [facility] Start: 1950 Sex Assigned At Female W [facility] Start: 09-15-2018 End: 02-19-2024 Tobacco smoking status ORIS Never smoked tobacco [facility] Start: 09-15-2018 Tobacco use and exposure Smokeless tobacco non-user [facility] Start: 05-21-2019 End: 09-16-2023 Alcohol intake Current drinker of alcohol (finding) [facility] Start: 11-28-2012 [facility] Start: 05-21-2019 End: 12-04-2022 History of Social function [facility] Work Phone: Start: 05-21-2019 End: 12-04-2022 Tobacco use panel [facility] Work Phone: Start: 04-01-2012 PHQ2 Score 0 [facility] Work Phone: Start: 04-09-2019 Gender identity Identifies as female gender (finding) [facility] Functional Status Date Assessment Result Facility 11-08-2018 Are you deaf, or do you have serious difficulty hearing No 11/08/2018 10:24 AM Gene Ruiz RN No [facility] 11-08-2018 Are you blind, or do you have serious difficulty seeing, even when wearing glasses No 11/08/2018 10:24 AM Gene Ruiz RN No [facility] 11-08-2018 Do you have serious difficulty walking or climbing stairs No 11/08/2018 10:24 AM Gene Ruiz RN No [facility] 11-08-2018 Do you have difficul ty dressing or bathing No 11/08/2018 10:24 AM Gene Ruiz RN No [facility] 11-08-2018 Because of a physica l, mental, or emotional condition, do you have difficulty doing errands alone such as visiting a physician's office or shopping No 11/08/2018 10:24 AM Gene Ruiz RN No [facility] Mental Status Date Assessment Result Facility 11-08-2018 Because of a physica l, mental, or emotional condition, do you have serious difficulty concentrating, remembering, or making decisions No 11/08/2018 10:24 AM Gene Ruiz RN No [facility] Clinical Notes 11-05-2018 to 02-03-2025 Brent Cantu, DO - 12/29/2024 1:03 PM EDT Note Date & Type Note Facility 02-03-2025 Progress note [facility] 01-22-2025 Note HNO ID: [id number] Author: LUCILA PARIKH RN Service: Care Management Author Type: Registered Nurse Type: Care Mgt Progress Note Filed: 01/22/2025 12:08 Note Text: CARE MANAGEMENT PROGRESS NOTE SERVICE DATE: 01/22/2025 SERVICE TIME: 12:08 PM LOS: 2 days IMM Follow Up Copy Given: Yes Copy given to:: Patient Method: In Person SIGNATURE: Lucila Parikh RN PATIENT NAME: Bony Huang DATE: January 22, 2025 TIME: 12:08 PM [facility] 01-22-2025 Note HNO ID: [id number] Author: LUCILA PARIKH RN Service: Care Management [...] DATE: January 22, 2025 TIME: 12:06 PM [facility] 01-22-2025 Note HNO ID: [id number] Author: YUMIKO LEWIS PA-C Service: General Internal Medicine Author Type: Physician Tank Inspector Type: Progress Notes Filed: 01/22/2025 11:59 Note Text: DISCHARGE READINESS NOTE PATIENT NAME: Bony Huang Code Status: Full Code ADMISSION DATE: 01/18/2025 DISCHARGE DATE: 01/22/2025 PRIMARY CARE PHYSICIAN: Cheikh Pinto MD [facility] ATTENDING PHYSICIAN: Theresa Matthews MD PATIENT CONDITION [...] Team: Attending Provider: Theresa Matthews MD Physician Tank Inspector: Indigo Sr PA-C Consulting: Shyanne Sanchez MD OPERATIONS DURING HOSPITALIZATION: PROCEDURES DURING HOSPITALIZATION: TRANSITION OF CARE ISSUES: None LABS AND PROCEDURES PENDING AT DISCHARGE: No pending results. HOSPITAL COURSE: 75 y/o female with past medical history of GERD, Hypothroidism, N/V presents to [facility] via transfer from another hospital with complaints [...] Your Medications These medications were sent to [facility] [address] [place] [id number] - [id number] [facility] - [phone] [facility] [address] 40 mg tablet FUTURE APPOINTMENTS: Appointments for Next 45 Days None Follow Up Orders Not Yet Scheduled Follow Up Appointment - PCP/Primary Care; Yes; Within 7 days; No; [facility] Provider; Cheikh Pinto MD ONCE Comments: nausea/vomiting, post hospital discahrge follow up Follow Up Appointment - Gastroenterology; No; less than 2 weeks; No; [facility] Provider; SHYANNE SANCHEZ ONCE Comments: gastroparesis, IBS, Nausea/vomting INFORMATION PROVIDED TO PATIENT: See After Visit Summary/Discharge Instructions Highest Readmission Risk Score: 15 The 30 day readmissions risk score is derived from an internally validated risk model which evaluates patient level characteristics, utilization history, medication orders and lab results up until the day of discharge. Patients with (more content not included)... [facility] 01-22-2025 Note HNO ID: [id number] Author: THERESA MATTHEWS MD Service: General Internal [...] counseling family, coordinating with other care givers, geriatric case manager and pharmacist was >35 min. [...] ALT 8 1 (more content not included)... [facility] 01-21-2025 Note HNO ID: [id number] Author: PHUC THOMAS RN Service: Care Management Author Type: Registered Nurse Type: Care Mgt Progress Note Filed: 01/21/2025 12:04 Note Text: CARE MANAGEMENT PROGRESS NOTE SERVICE DATE: 01/21/2025 SERVICE TIME: 12:02 PM LOS: 1 day Needs Prior to Discharge: To Be Determined Combes of Choice Given: No Reason Not Given: [...] DATE: January 21, 2025 TIME: 12:02 PM [facility] 01-21-2025 Note HNO ID: [id number] Author: THERESA MATTHEWS MD Service: General Internal [...] Bony Huang DATE: 01/21/2025 TIME: 9:26 AM [facility] 01-20-2025 Note HNO ID: [id number] Author: THERESA MATTHEWS MD Service: General Internal [...] 84 93 TBILI 0.5 0.6 0.5 SIGNATURE: Theersa Matthews MD PATIENT NAME: Bony Huang DATE: 01/20/2025 TIME: 8:39 AM [facility] 01-19-2025 Note HNO ID: [id number] Author: LUCILA PARIKH RN Service: Care Management Author Type: Registered Nurse Type: Care Mgt Initial Assessment Filed: 01/19/2025 09:48 Note Text: CARE MANAGEMENT: ASSESSMENT AND DISCHARGE PLAN SERVICE DATE: January 19, 2025 SERVICE TIME: 9:43 AM PCP: Cheikh Pinto MD Primary Contact: Extended Emergency Contact Information Primary Emergency Contact: FREDA HUANG Mobile Relation: Son Secondary Emergency Contact: Dana Huang Address: [address] [place] [address] Mobile Relation: Spouse Admission Status: Inpatient [facility] Discharge Planning requested by: Per Department Practice Potential Transition Plans Home Advance Directives Current Advance Directive: None 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 Author [...] no edema RESPIRATORY: No dyspnea : neg JUKEBOX CHECKER: neg The remainder of the review of [...] using ambient A (more content not included)... [facility] 12-29-2024 History of Present illness Narrative FOLLOW [...] no edema RESPIRATORY: No dyspnea : neg JUKEBOX CHECKER: neg The remainder of the review of [...] Brent Cantu DO 12/29/2024 Recording using ambient [employer] software for draft documentation of the visit was discussed with the patient/authorized motor vehicle field representative; all questions welcomed and answered. 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 December 21, 025 10:51am Hypothyroidism (acquired) chronic December 21 025 10:51am Hypothyroidism acute February 032024 9:04am Gastroparesis chronic January 9:04am 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 Cantu His phone is [phone] documented in [facility] Telephone encounter Note * Telephone Encounter - Joann Orourke - 10/12/2024 9:59 AM EDT calling requesting a follow up for his with Dr. Cantu His phone is [phone] [facility] Work Phone: 1(644) 201-299111-05-2024 [facility] Medical Records Department [facility] [place] [address] Discharge Summary 02/18/24 1426 MR#: [id number] Acct: [id number] Name: BONY HUANG Rep #: [id number] : 1950 74 From: Cathleen Abdalla MD PCP: Dr. Cheikh Pinto MD Status:ADM NANCY Location: [place] [address] Providers Date of Admission: 02/17/24 Date of [...] Clarity Cloudy, Urine pH 6.0, Ur Specific [place] 1.025, U rine Protein 100 H, Urine [...] 28.7, MCHC 33.3, RDW Std (morecontent not included)...[facility]07-03-2024 Attending History and physical note* Bina [...] chronic constipation, followed by GI medicine at [facility] for years. She complains of swallowing difficulties. 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 [facility] TOTAL ABDOM HYSTERECTOMY CURRENT MEDICATIONS Current Outpatient Medications Medication Sig [place]-3 Fatty Acids 500 mg cap Take 500 [...] Mother Coronary Artery Disease Father premature with CO at around 27yo Colon Cancer Sister other [...] (R13.10) Dysphagia, unspecified type (primary encounter diagnosis) [facility]07-03-2024 History and physical note* Bina Overton [...] chronic constipation, followed by GI medicine at [facility] for years. She complains of swallowing difficulties. 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 [facility] TOTAL ABDOM HYSTERECTOMY CURRENT MEDICATIONS Current Outpatient Medications Medication Sig [place]-3 Fatty Acids 500 mg cap Take 500 [...] Mother Coronary Artery Disease Father premature with CO at around 27yo Colon Cancer Sister other [...] (R13.10) Dysphagia, unspecified type (primary encounter diagnosis) [facility]07-03-2024 History and physical note* Bina Overton [...] chronic constipation, followed by GI medicine at [facility] for years. She complains of swallowing difficulties. 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 [facility] TOTAL ABDOM HYSTERECTOMY CURRENT MEDICATIONS Current Outpatient Medications Medication Sig [place]-3 Fatty Acids 500 mg cap Take 500 [...] Mother Coronary Artery Disease Father premature with CO at around 27yo Colon Cancer Sister other [...] chronic constipation, followed by GI medicine at [facility] for years. She complains of swallowing difficulties. [...] HISTORY OF 2008 carcinoid tumor of duodeum. [facility] TOTAL ABDOM HYSTERECTOMY CURRENT MEDICATIONS Current Outpatient Medications Medication Sig [place]-3 Fatty Acids 500 mg cap Take 500 [...] Mother Coronary Artery Disease Father premature with CO at around 27yo Colon Cancer Sister other [...] type (primary encounter diagnosis) documented in this encounterCher[facility]06-[facility]24 Nurse Note* Rosemarie Hope RN - [...] 03/30/16 Last Colonoscopy: 11/07/18 Rosemarie Hope RN [facility]06-03-2024 Nurse Note* Rosemarie Hope RN - [...] 11/07/18 Rosemarie Hope RN documented in this encounterCher[facility] Hospital06-03-2024 History of Present illness Narrative* Bina [...] chronic constipation, followed by GI medicine at [facility] for years. She complains of swallowing difficulties. 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 [facility] TOTAL ABDOM HYSTERECTOMY Current Outpatient Medications Medication Sig [place]-3 Fatty Acids 500 mg cap Take 500 [...] Mother Coronary Artery Disease Father premature with CO at around 27yo Colon Cancer Sister other [...] treatment, she can follow up with her heat treat puller, patient understands. I have explained to the [...] will be scheduled for the procedure at [facility]. Diagnoses: (R13.10) Dysphagia, unspecified type (primary encounter [...] Low Bina Overton MD documented in this encounterC[facility] Hospital09-12-2023 Miscellaneous Notes* Telephone Encounter - Joann Orourke - 12/25/2022 9:[address] scan results are scanned for review documented in this encounterCherrington Hospital09-05-2023 Discharge summary Author Jaswant Aly [facility] December 18, 2022 9:22pm Note Date/Time December 18, 2022 6:42pm [facility] Medical Records Department [address] [place] [address] Emergency Department Summary 12/18/22 MR#: [id number] Acct: [id number] Name: BONY HUANG Rep #:[id number] : 1950 72 From: Jaswant Aly DO PCP: Dr. Cheikh Pinto MD [facility] ED HPI HPI - GI History of Present Illness Chief Complaint: Nausea/Vomiting/Diarrhea Narrative Narrative: 72-year-old female presenting with diarrhea. She has a history of gastroparesis. 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 She does have history of hysterectomy and diverticulitis. Patient presenting with diarrhea and abdominal pain. She was told by her GI doctor from [facility] that is soon as she gets diarrhea and abdominal pain she should come to the ER for an x-ray of her abdomen. She states he wants this to look for an obstruction. Patient has had several days of diarrhea. She does have this chronically but states that last month it was much better. She has not had fever or chills. She is vomiting. [facility] Medical History Carcinoid tumor Gastroparesis Hypothyroidism polypectomy Home Medications levocetirizine 5 mg tablet 5 mg PO Q OTHER DAY 11/03/19 [History Last Taken Unknown] diphenoxylate-atropine 2.5 mg-0.025 mg tablet 1 tab PO BID PRN diarrhea #20 tabs05/16/22 [Rx Last Taken Unknown] promethazine 12.5 mg rectal suppository 12.5 mg NV Q6H PRN nausea and vomiting #12 ea [...] 78.5 H Lymph % (Auto) 13.8 L [place] % (Auto) 5.9 Eos % (Auto) 0.8 [...] 21:14 EDT Reading Location ID and State: [facility] / [place] Tel , Service support , Discharge Plan [...] 1RF promethazine 12.5 mg suppository 12.5 mg NV Q6H PRN (Reason: nausea and vomiting) Qty: [...] your Primary Care Provider. Call [facility] ([phone]) or report to the closest Emergency Room. Call 911 if necessary. 12/18/222121 <Electronically signed by Jaswant Aly DO> Cosigner Signature (if applicable): CC: Dr. Cheikh Pinto MD ~ Signed [facility] Work Phone: 1(822) 794-674808-22-2023 History of Present illness Narrative* Brent Cantu [...] Current Outpatient Medications Medication Sig Dispense Refill [place]-3 Fatty Acids 500 mg cap Take 500 [...] no edema RESPIRATORY: No dyspnea : neg JUKEBOX CHECKER: neg The remainder of the review of [...] Brent Cantu DO 12/04/2022 documented in this encounterCher[facility] Hospital06-28-2023 Miscellaneous Notes* Telephone Encounter - CAM Tate - 10/10/2022 2:49 PM EDT External labs received Scanned to [facility] Forwarded to CAM Diallo documented in this encounterCher[facility] Hospital06-22-2023 Miscellaneous Notes* Telephone Encounter - Torsten [...] Wilson RN - 10/04/2022 12:02 PM EDT [facility] 09/11/22 Patient calling. Currently in the hospital in [facility]. States has had nausea and vomiting [...] Please review and advise. documented in this encounterCherrington Hospital05-30-2023 History of Present illness Narrative* Ashley [...] 11, 2022 8:54 AM documented in this encounterCherrington Hospital05-30-2023 History of Present illness Narrative* Brent Cantu, DO - 09/11/2022 8:05 AM EDT FOLLOW UP VIRTUAL VISIT I have communicated my name and active licensure. The patient's identity and physical location wereverified at the time of this visit. Either the patient or their legal motor vehicle field representative has been informed of the risks [...] Current Outpatient Medications Medication Sig Dispense Refill [place]-3 Fatty Acids 500 mg cap Take 500 [...] no edema RESPIRATORY: No dyspnea : neg JUKEBOX CHECKER: neg The remainder of the review of [...] Brent Cantu DO 09/11/2022 documented in this encounterCherrington Hospital07-24-2019 History of Past illness Narrative* Problem [...] above) Placed on protonix BID Presented to [facility] GI 09/2018 for the symptoms described [...] of this encounter (statuses as of 09/11/2022) [facility] History of Past illness Narrative* Problem [...] above) Placed on protonix BID Presented to [facility] GI 09/2018 for the symptoms described [...] of this encounter (statuses as of 09/12/2022) [place] [address]-24-2019 History of Past illness Narrative* Problem Noted [...] above) Placed on protonix BID Presented to [facility] GI 09/2018 for the symptoms described [...] of this encounter (statuses as of 10/04/2022) [facility] History of Past illness Narrative* Problem [...] above) Placed on protonix BID Presented to [facility] GI 09/2018 for the symptoms described [...] of this encounter (statuses as of 10/11/2022) [facility] History of Past illness Narrative* Problem [...] above) Placed on protonix BID Presented to [facility] GI 09/2018 for the symptoms described [...] of this encounter (statuses as of 12/04/2022) [facility] History of Past illness Narrative* Problem [...] above) Placed on protonix BID Presented to [facility] GI 09/2018 for the symptoms described [...] of this encounter (statuses as of 12/20/2022) [facility] History of Past illness Narrative* Problem [...] above) Placed on protonix BID Presented to [facility] GI 09/2018 for the symptoms described [...] of this encounter (statuses as of 12/25/2022) [facility] summary Author Ferny Jett [facility] November 10, 2022 6:34am Note Date/Time November 10, 2022 5:45 am [facility] Medical Records Department [address] [place] [address] Emergency Department Summary 11/10/22 MR#: [id number] Acct: [id number] Name: BONY HUANG Rep #:[id number] : [...] dehydrated andhaving muscle cramping in her legs. [facility] Medical History (Updated 11/10/22 @ 06:32 by [...] promethazine 12.5 mg rectal suppository 12.5 mg NV Q6H PRN nausea and vomiting #12 ea [...] 81.2 H Lymph % (Auto) 10.8 L [place] % (Auto) 6.8 Eos % (Auto) 0.4 [...] 1RF promethazine 12.5 mg suppository 12.5 mg NV Q6H PRN (Reason: nausea and vomiting) Qty: [...] your Primary Care Provider. Call [facility] ([phone]) or report to the closest Emergency Room. Call 911 if necessary. 11/10/22633 <Electronically signed by Ferny Jett MD> Cosigner Signature (if applicable): CC: Dr. 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 Hypothyroidism (acquired) [facility] Work Phone: Evaluation note* Diagnosis Constipation, unspecified constipation type- Primary Nausea and vomiting, unspecified vomiting type [facility] Diagnosis Constipation, unspecified constipation type documented in this encounter [facility] note* Diagnosis Onset Date Resolution Status Gastroparesis chronic 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 Hypothyroidism (acquired) [facility] Work Phone: Evaluation note* Diagnosis Onset Date Resolution Status Gastroparesis chronic 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 Hypothyroidism (acquired) ch ronic Elevated lipase acute Gastroparesis chronic 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 Hypothyroidism (acquired) [facility] Work Phone: Evaluation note* Diagnosis History of malignant carcinoid tumor- Primary Personal history of malignant neuroendocrine tumor Nausea and vomiting, unspecified vomiting type Malnutrition of mild degree (HCC) Malnutrition of mild degree [facility] Diagnosis Onset Date Resolution Status Acute diverticulitis of intestine acute Gastroparesis chronic Hypothyroidism (acquired) ch cailin Gastroparesis chronic 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 Additional Instructions Okay to take metoclopramide with Zofran, but do not take simultaneous with promethazine/Phenergan; basically, either Phenergan or metoclopramide/Reglan.[facility] Work Phone: Hospital Discharge instructionsAmbulatory Orders* Gastroenterology Location: None Selected [facility] Work Phone: Progress note Author Cheikh Pinto [facility] Note Date/Time February 03, 2025 1 0:56am [facility] [address] [place] [address] OFFICE VISIT Date of Service: 02/03/25 MR#: [id number] Acct: [id number] Name: BONY HUANG Rep #: [id number] : 1950 Provider: Dr. 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 Unfortunately, [facility] in [place] declined seeing Bony within their gastric motility disorder clinic. She did get back in with [facility]. However to me, no specific inroads were [...] fluids and Zofran and discharged. From the [facility] standpoint, I guess they will continue tofollow [...] Patient presented as above. Despite getting to [facility], no new revelations in terms of what [...] at this would be functional medicine at [facility]. I have encouraged her to read on [...] Cosigner Signature: Date (if applicable) CC: ~ [facility] [employer] Diagnostic Procedure Only (Routine) - Closed Specialty Diagnoses / Procedures Referred By Maggie t Referred To Contact XR IMAGING Diagnoses Constipation, unspecified constipation type Procedures XR ABDOMEN 1V SUPINE RADIOLOGIC EXAM ABDOMEN [address] VIEW Brent Cantu DO [address] [place] [address] Xr Imaging Referral ID Status Reason Start Date Expiration Date V isits Requested Visits Authorized [id number] Closed Auto-Generate d Referral 09/11/2022 10/11/2023 1 1 [facility] for referral (narrative)* Diagnostic Procedure Only (Routine) - Closed Specialty Diagnoses / Procedures Referred By Maggie t Referred To Contact XR IMAGING Diagnoses Constipation, unspecified constipation type Procedures XR ABDOMEN 1V SUPINE RADIOLOGIC EXAM ABDOMEN [address] V[address] Brent Cantu DO [address] [place] [address] Xr Imaging Referral ID Status Reason Start Date Expiration Date V isits Requested Visits Authorized [id number] Closed Auto-Generate d Referral 09/11/2022 10/11/2023 1 1 [facility] for referral (narrative)* Outpatient Procedure (Routine) - Authorized Specialty Diagnoses / Procedures Referred By Contac t Referred To Contact [facility] Diagnoses Dysphagia, unspecified type Procedures EGD DIAGNOSTIC ESOPHAGOGASTRODUODENOSC OPY TRANSORAL DIAGNOSTIC Bina Overton MD [address] [facility] [place] [address] [address] Referral ID Status Reason Start Date Expiration Date Visits Requested Visits Authorized [id number] Authorized Auto-Generat ed Referral 09/16/2023 09/15/2024 1 1 [facility] for referral (narrative)* Outpatient Procedure (Routine) - Closed Specialty Diagnoses / Procedures [facility] Referred To Contact [facility] DISEASE TURNER Diagnoses Dysphagia, unspecified type Procedures EGD DIAGNOSTIC ESOPHAGOGASTRODUODENOSC OPY TRANSORAL DIAGNOSTIC Bina Overton MD [address] [place] [address] [address] Referral ID Status Reason Start Date Expiration Date V isits Requested Visits Authorized [id number] Closed Auto-Generate d Referral 09/16/2023 09/15/2024 1 1 T [facility] for referral (narrative)No reason for referral [facility] Work [facility]: Re[facility]bi for visit Narrative* Diagnostic Procedure Only (Routine) - Closed Specialty Diagnoses / Procedures Referred By Contac t Referred To Contact XR IMAGING Diagnoses Constipation, unspecified constipation type Procedures XR ABDOMEN 1V SUPINE RADIOLOGIC EXAM ABDOMEN 1 VIEW Brent Cantu DO [facility] [address] [place] [address] Xr Imaging Referral ID Status Reason Start Date Expiration Date V isits Requested Visits Authorized [id number] Closed Auto-Generate d Referral 09/11/2022 10/11/2023 1 1 [facility]* Outpatient Procedure (Routine) - Closed Specialty Diagnoses / Procedures Referred By Maggie t Referred To Contact [facility] Diagnoses Dysphagia, unspecified type Procedures EGD DIAGNOSTIC ESOPHAGOGASTRODUODENOSC OPY TRANSORAL DIAGNOSTIC Bina Overton MD [address] [place] [address] [facility] [address] [place] [address] Referral ID Status Reason Start Date Expiration Date V isits Requested Visits Authorized [id number] Closed Auto-Generate d Referral 09/16/2023 09/15/2024 1 1 [facility] Summary Purpose Family History Relationship Condition [...] No November 10, 2022 5:47am Power of Care Specialist No November 10 5:47am Latest Code Status on File Code Status Date Activated Date Inactivated Comments Full Code 11/05/2018 2:35 PM 11/08/2018 2:56 PM Question Answer Comments Full Code Order Discussed With: Patient Advance Directive Response Recorded Date/ Time Living Will No December 18 023 7:02pm Power of Care Specialist No December 18, 2022 7:02pm Date Activated [...] Chief Complaint Hospital FU n/v nausea vomiting [facility] ER FU Reason for Visit Gastroparesis History [...] section and content) DATE CREATED AUTHOR 06/25/2018 [facility] DATE CREATED AUTHOR AUTHOR'S ORGANIZ ATION 06/28/2018 [facility] DATE CREATED AUTHOR AUTHOR'S ORGANIZ ATION 10/18/2023 [facility] DATE CREATED AUTHOR AUTHOR'S ORGANIZ ATION 12/25/2024 [facility] DATE CREATED AUTHOR AUTHOR'S ORGANIZ ATION 01/23/2025 [facility] DATE CREATED AUTHOR AUTHOR'S ORGANIZ ATION 02/06/2025 [facility] DATE CREATED AUTHOR AUTHOR'S ORGANIZ ATION 02/20/2025 Jose L Rodas [facility] DATE CREATED AUTHOR AUTHOR'S ORGANIZ ATION 02/20/2025 [facility] Goals (unrecognized section and content) Goals may [...] Dr. Cheikh Pinto MD Primary Care Provider, [facility] Provider Active Game Programmer Relationship Specialty Start Date End Date Cheikh Pinto MD PCP - General Internal Medicine 02/19/18 Game Programmer Relationship Specialty Start Date End Date Cheikh Pinto MD PCP - General Internal Medicine 02/19/18 Game Programmer Relationship Specialty Start Date End Date Cheikh Pinto MD PCP - General Internal Medicine 02/19/18 Game Programmer Relationship Specialty Start Date End Date Cheikh [...] Jett MD Attending Provider, Emergency Provider Active Game Programmer Relationship Specialty Start Date End Date Cheikh Pinto MD PCP - General Internal Medicine 02/19/18 Team Status: Inactive Member Role Status Dates Dr. Cheikh Pinto MD Primary Care Provider Active Dr. Jaswant Aly DO Emergency Provider Active Game Programmer Relationship Specialty Start Date End Date Cheikh Pinto MD PCP - General Internal Medicine 02/19/18 Game Programmer Relationship Specialty Start Date End Date Cheikh Pinto MD PCP - General Internal Medicine 02/19/18 Game Programmer Relationship Specialty Start Date End Date Cheikh Pinto MD PCP - General Internal Medicine 02/19/18 Game Programmer Relationship Specialty Start Date End Date Cheikh Pinto MD PCP - General Internal Medicine 02/19/18 Game Programmer Relationship Specialty Start Date End Date Cheikh [...] December 21, 2024 End: December 21, 2024 Game Programmer Relationship Specialty Start Date End Date Cheikh [...] or prosecute any alcohol or drug abuse patient.[facility] the event this information is protected by the Federal Confidentiality of Alcohol and Drug Abuse Patient Records regulations: The Federal rules restrict any use of the information to criminally investigate or prosecute any alcohol or drug abuse patient.[facility] the event this information is protected by the Federal Confidentiality of Alcohol and Drug Abuse Patient Records regulations: The Federal rules restrict any use of the information to criminally investigate or prosecute any alcohol or drug abuse patient.[facility] the event this information is protected by the Federal Confidentiality of Alcohol and Drug Abuse Patient Records regulations: The Federal rules restrict any use of the information to criminally investigate or prosecute any alcohol or drug abuse patient.[facility] the event this information is protected by the Federal Confidentiality of Alcohol and Drug Abuse Patient Records regulations: The Federal rules restrict any use of the information to criminally investigate or prosecute any alcohol or drug abuse patient.[facility] the event this information is protected by the Federal Confidentiality of Alcohol and Drug Abuse Patient Records regulations: The Federal rules restrict any use of the information to criminally investigate or prosecute any alcohol or drug abuse patient.[facility] the event this information is protected by the Federal Confidentiality of Alcohol and Drug Abuse Patient Records regulations: The Federal rules restrict any use of the information to criminally investigate or prosecute any alcohol or drug abuse patient.[facility] Hospital[facility] the event this information is protected by the Federal Confidentiality of Alcohol and Drug Abuse Patient Records regulations: The Federal rules restrict any use of the information to criminally investigate or prosecute any alcohol or drug abuse patient.[facility] Hospital[facility] the event this information is protected by the Federal Confidentiality of Alcohol and Drug Abuse Patient Records regulations: The Federal rules restrict any use of the information to criminally investigate or prosecute any alcohol or drug abuse patient.[facility] Hospital[facility] the event this information is protected by the Federal Confidentiality of Alcohol and Drug Abuse Patient Records regulations: The Federal rules restrict any use of the information to criminally investigate or prosecute any alcohol or drug abuse patient.[facility] HospitalIn the event this information is protected by the Federal Confidentiality of Alcohol and Drug Abuse Patient Records regulations: The Federal rules restrict any use of the information to criminally investigate or prosecute any alcohol or drug abuse patient.[facility] Reason for Visit (unrecogniz ed section [...] BE BASED ON THE PRIMARY CLINICAL RECORDS. [facility] [employer] [facility]. provides no warranty or guarantee of the accuracy or completeness of information in this document.
== END | disposition home or self-care (01) ==
LOC: MRI 07:00
PROVIDERS: PCP Internal Medicine; Referring Provider Internal Medicine; Visit Provider Internal Medicine
DX: R11.2 Nausea with vomiting, unspecified (principal); R97.8 Other abnormal tumor markers
CPT/HCPCS: 70553; A9575